=== PATIENT | male | born 1940 | race African-American/Black ===

== ENCOUNTER 2016-11-25 21:18 | Inpatient (IN) | payer MEDICARE, MEDICAID ==
[~2016-11-25] VITALS: Ht 170.2 cm; Wt 100.2 kg
[~2016-11-25 21:18] MED LIST: ACETAMINOPHEN325 M1 GT; ACETAMINOPHEN650 M2 GT; ALBUTEROL2.5 MG/3 M HHN; CALCIUM 500 +1 EAC7 GT; CARDURA1 MG GT; CATAPRES0.1 MG GT; CEFTRIAXON1 GM/50 ML IV; COLACE100 MG/10 GT; COUMADIN4 MG GT; DEPAKENE250 MG GT; DSS100 MG GT; DUCOLAX RECTAL; FLEET ENEMA133 ML RECTAL; FLOMAX0.4 MG GT; LASIX20 M1 GT; LOVENOX10 M2 SUBQ; Lidocaine 1% MPF 10mg/ml 5ml ONE; MOM30 ML GT; MULTIVITAMINS1 EA13 GT; NEXIUM40 M2 GT; NORVASC5 MG GT; OMEPRAZOLE20 M3 GT; POTASSIUM CHLO20 ME1 GT; TRAMADOL HCL50 MG ORAL; VANCOMYCIN1 GM/2502 IVPB; VITAMIN C500 MG/11 GT; Vancomycin 1gm inj IVPB ONE; ZOFRAN4 M3 ORAL; Zosyn 3.375gm inj ONE; [UNRECOGNIZED DRUG - OTHER]; [UNRECOGNIZED DRUG - OTHER] GT
[2016-11-25] MEDS ORDERED: Piperacillin/Tazobactam 3.375 GM in NS 110 ML IVPB ONE (21:45)
[2016-11-25 21:51] LABS: BASOPHILS % (AUTO) 0.5 % (0.0-2.0); LYMPHOCYTES % (AUTO) 11.6 % (20.0-45.0); MEAN CORPUSCULAR HGB CONC 31.4 G/DL (32.0-36.0); MEAN CORPUSCULAR VOLUME 99 FL (80-99); NEUTROPHILS % (AUTO) 82.8 % (45.0-75.0); PLATELET COUNT 218 K/UL (150-450); RED BLOOD COUNT 5.46 M/UL (4.70-6.10); RED CELL DISTRIBUTION WIDTH 14.4 % (11.6-14.8)
[2016-11-25 21:58] VITALS: BP 107/82
[2016-11-25 21:59] LABS: ABG PCO2 39.7 mmHg (35.0-45.0)
[2016-11-25 22:00] LABS: ABG ALLEN TEST POSITIVE; ABG BASE EXCESS 4.3
[2016-11-25 22:09] LABS: ALANINE AMINOTRANSFERASE 482 U/L (3-41); ALBUMIN/GLOBULIN RATIO 0.5 (1.0-2.7); ANION GAP 17 (5-15); ASPARTATE AMINO TRANSFERASE 577 U/L (5-40); CALCIUM 9.2 mg/dL (8.6-10.2); CARBON DIOXIDE 28 mEQ/L (20-30); CHLORIDE 103 mEQ/L (98-107); CREATININE 1.4 mg/dL (0.7-1.2); HEMOLYSIS 6; POTASSIUM 5.3 mEQ/L (3.4-4.9); SODIUM 148 mEQ/L (135-145); TOTAL PROTEIN 8.2 g/dL (6.6-8.7)
[2016-11-25 22:26] LABS: BILIRUBIN,DIRECT 2.6 mg/dL (0.1-0.3)
--- NOTE | 2016-11-25 22:40 | Emergency Room Report ---
History of Present Illness General Chief Complaint: Abnormal Labs Source: Medical Record, EMS, PMD Present Illness HPI 76 YOM sent by PMD from SNF for hyperglycemia, concern for sepsis. Per EMS, patient's baseline is alert and oriented x0. No acute worsening noted by SNF staff. Vitals otherwise stable in the field. No other info from patient at this time. There are no family members present to provide additional info. Allergies: Coded Allergies: No Known Allergies (Verified , 12/27/08) Patient History Past Medical History: see triage record, old chart reviewed, DM Past Surgical History: unable to obtain Pertinent Family History: unable to obtain Social History: Denies: alcohol use, drug use, smoking Immunizations: UTD Reviewed Nursing Documentation: PSxH: Agreed Nursing Documentation-PMH Hx Cardiac Problems: Yes - A FIB Hx Hypertension: Yes Hx Cancer: No Hx Gastrointestinal Problems: Yes - PEG Hx Neurological Problems: Yes - aphasia, dementia Hx Cerebrovascular Accident: Yes Hx Dementia: Yes Hx Seizures: Yes Hx Aphasia: Yes Hx Dysphasia: Yes Hx Weakness: Yes Review of Systems All Other Systems: limited - unable to obtain Physical Exam Vital Signs Date Time Temp Pulse Resp B/P Pulse Ox O2 Delivery O2 Flow Rate FiO2 11/25/16 21:20 111 26 107/82 92 Nasal Cannula 2.0 11/25/16 22:34 101.8 Sp02 EP Interpretation: reviewed, abnormal, other - tachypnea General Appearance: normal inspection, well appearing, no apparent distress, GCS 15, non-toxic Head: normocephalic, atraumatic Eyes: bilateral eye EOMI, bilateral eye PERRL ENT: normal ENT inspection, normal pharynx, no angioedema Neck: normal inspection, full range of motion, supple, no bony tend Respiratory: normal inspection, lungs clear, normal breath sounds, no rhonchi, no respiratory distress, no retraction, no accessory muscle use, no wheezing, speaking full sentences Cardiovascular #1: regular rate, rhythm, no edema Gastrointestinal: normal inspection, normal bowel sounds, non tender, soft, no guarding, no hernia, other - Gtube in place. Soft, NT/ND Genitourinary: no CVA tenderness Musculoskeletal: normal inspection, back normal, Jojo's Sign negative Neurologic: normal inspection, responsive, speech normal Psychiatric: normal inspection Skin: no rash Lymphatic: normal inspection Procedures Critical Care Time Critical Care Time CC time 35 minutes Care for 76 YOM with hyperglycemia, fever, altered? VS notable for fever, tachypnea. Atraumatic Hyperglycemia. DDx includes sepsis, DKA, hyperglycemia Care included sepsis order set for labs, 30cc/kg fluid resuscitation, initiation of IV antibiotics, tylenol PRN fever, Insulin gtt possibly, ABG Care may include administration of vasopressors started to support failing circulatory system, includes frequent re-exam, interpretation of lab studies and consultation with hospitalist/supervisor fruit grading. 35 minutes of critical care time was spent with this patient not including time spent performing separately reportable procedures. Central Line Central Line : Consent: Emergent Central Line Lumen: triple Maximal Sterile Barrier Tech: yes cap, yes mask, yes sterile gown, yes sterile gloves, yes large sterile sheet, yes hand hygiene, yes chlorhexidine prep No Max Barrier Tech Because: emergency insertion Central Line Postion: femoral (R) Anesthesia: Lidocaine Complications: none Central Line Post Position: sutured, good blood return Attempts: One Patient Tolerated: Well Complications: None Medical Decision Making Medicare Attestation I Jonnathan Obrien MD hereby attest that the medical record entry for date of service, 08/20/16 accurately reflects signatures/notations that I made in my capacity as MD when I treated/diagnosed the above listed Medicare beneficiary. I attest that this information is true, accurate and complete to the best of my knowledge. I understand that any falsification, omission, or concealment of material fact may subject me to administrative, civil, or criminal liability. This patient warrants hospital admission for extreme of age and has a condition that cannot be treated as outpatient. Diagnostic Impression: Primary Impression: Sepsis Qualified Codes: A41.9 - Sepsis, unspecified organism Additional Impressions: Hyperglycemia FABIOLA (acute kidney injury) Choledocholithiasis Aspiration into lower respiratory tract Qualified Codes: T17.800A - Unspecified foreign body in other parts of respiratory tract causing asphyxiation, initial encounter ER Course Febrile. Normotensive. O2 sat stable. Airway patent Labs: Leuks. H&H stable. AG 17. Bicarb normal. Elevated creatinine. Glucose 544. Elevated direct/total bili, LFTs. Serum ketones negative ABG: mild alkalosis, likely from tachynea CXR: widened mediastinum seen on previous CXR CTAP: choledocholithiasis, cholelithiais, pancreatitis vs duodenitis. ? aspiration. Gtube in place A: - Hyperglycemia: Not in DKA. Controlled with insulin, IVF - Sepsis. Was given empiric Abx and IVF, and Tylenol. Unclear source. Possibly aspiration Endorsed To Dr Tran at 1214am for tele admission Rhythm Strip Diag. Results EP Interpretation: yes Rate: 85 Rhythm: NSR, no PVC's, no ectopy Chest X-Ray Diagnostic Results EP Interpretation: Yes Findings: no consolidation, no acute cardiopulmonary disease, other - Cardiomegaly, stable enlarged mediastinum Number of Views: 1 Last Vital Signs Date Time Temp Pulse Resp B/P Pulse Ox O2 Delivery O2 Flow Rate FiO2 11/25/16 22:34 101.8 11/25/16 21:58 112 33 107/82 99 Nasal Cannula 2.0 Status: improved Disposition: ADMITTED INPATIENT Condition: Critical Referrals: Aliza Faria MD (PCP) JONNATHAN OBRIEN M.D. Nov 25, 2016 22:40
[2016-11-25] MEDS: Vancomycin 1.5 GM in D5W 325 ML IVPB STA ×2 (22:41→22:46)
[2016-11-25 23:03] VITALS: BP 117/60
[2016-11-25] MEDS ORDERED: Miralax 17gm pkt ORAL PRN (23:15)
[2016-11-25] MEDS ORDERED: traMADol 50mg tab ORAL PRN (23:15)
[2016-11-25] MEDS ORDERED: Morphine Sulfate 4mg/ml Inj IVP PRN (23:15)
[2016-11-25] MEDS ORDERED: DuoNeb 0.5-3(2.5)mg/3ml neb HHN PRN (23:15)
[2016-11-25] MEDS ORDERED: Insulin Rate Change 1 Each MISC PRN (23:15)
[2016-11-25] MEDS ORDERED: Nitroglycerin Subl 0.4mg tab (Bottle Of 25) SL PRN (23:15)
[2016-11-25] MEDS ORDERED: LORazepam Inj 2mg/ml 1ml IV PRN (23:15)
[2016-11-25 23:45] VITALS: BP 99/68
[2016-11-25 23:47] LABS: REFLEX LACTIC ACID YES OR NO YES
[2016-11-25 23:58] LABS: KETONES,URINE NEGATIVE (NEGATIVE); LEUKOCYTE ESTERASE ,URINE 1+ (NEGATIVE); NITRITE,URINE NEGATIVE (NEGATIVE); PH,URINE 5 (4.5-8.0); PROTEIN,URINE 3+ (NEGATIVE); UROBILINOGEN,URINE 8 MG/DL (0.0-1.0)
[2016-11-26] VITALS (18 sets, daily range): BP systolic 91–145; BP diastolic 50–99
[2016-11-26] MEDS ORDERED: ATORVASTATIN CA20 MG GT (00:45)
[2016-11-26] MEDS ORDERED: PANTOPRAZOLE SO40 MG ORAL (00:45)
[2016-11-26] MEDS ORDERED: WARFARIN SODIUM3 MG ORAL (00:45)
[2016-11-26 01:52] LABS: APPEARANCE,URINE SLIGHTLY CLOUDY
[2016-11-26 01:54] LABS: AMORPHOUS SEDIMENT,UR MANY /LPF; BACTERIA,URINE FEW /HPF; SQUAMOUS EPITHELIAL CELL,UR FEW /LPF (NONE/OCC); TRANSITIONAL EPI CELLS,URINE FEW /LPF
[2016-11-26] MEDS ORDERED: TAMSULOSIN HCL0.4 MG ORAL (03:11)
[2016-11-26] MEDS ORDERED: Zosyn 3.375gm inj ONE (03:31)
[2016-11-26] MEDS: Piperacillin/Tazobactam 3.375 GM in NS 110 ML IVPB SCH ×2 (06:15→14:54)
[2016-11-26] MEDS: NovoLOG Insulin Flexpen SUBQ SCH ×4 (06:38→21:12)
[2016-11-26 08:13] LABS: MEAN CORPUSCULAR HEMOGLOBIN 30.5 PG (27.0-31.0); MEAN CORPUSCULAR HGB CONC 30.4 G/DL (32.0-36.0); MEAN CORPUSCULAR VOLUME 100 FL (80-99); MEAN PLATELET VOLUME 9.5 FL (6.5-10.1); PLATELET COUNT 243 K/UL (150-450); RED BLOOD COUNT 5.04 M/UL (4.70-6.10); RED CELL DISTRIBUTION WIDTH 14.6 % (11.6-14.8); WHITE BLOOD COUNT 12.4 K/UL (4.8-10.8)
[2016-11-26 08:22] LABS: BILIRUBIN,DIRECT 2.2 mg/dL (0.1-0.3); PHOSPHORUS 3.8 mg/dL (2.5-4.8)
[2016-11-26 08:23] LABS: ANION GAP 17 (5-15); CALCIUM 8.3 mg/dL (8.6-10.2); CARBON DIOXIDE 27 mEQ/L (20-30); CHLORIDE 107 mEQ/L (98-107); CREATININE 1.5 mg/dL (0.7-1.2); HEMOLYSIS 4; POTASSIUM 4.4 mEQ/L (3.4-4.9); SODIUM 151 mEQ/L (135-145)
[2016-11-26 08:33] LABS: PROTHROMBIN TIME 89.7 SEC (9.30-11.50)
[2016-11-26 08:46] LABS: INR 8.2 (0.9-1.1)
[2016-11-26] MEDS ORDERED: Heparin 5000 units/ml inj SUBQ SCH (09:00)
--- NOTE | 2016-11-26 09:25 | Diagnostic Imaging Report ---
Indication: Abdominal pain and vomiting Technique: Spiral acquisitions obtained through the abdomen and pelvis. No oral contrast utilized, per emergency room physician request No IV contrast utilized, per referring physician request.. Multiplanar reconstructions were generated. Total dose length product : 43 mGycm. CTDIvol(s) 18 mGy Comparison: 02/25/2015 Findings: Exam is limited by lack of oral and IV contrast Interim development of marked thickening of the wall of the duodenum. There is infiltration of the periduodenal and peripancreatic fat, the latter particularly in the region of the pancreatic head, and fluid and phlegmon are seen traveling down the bilateral paracolic gutters. The gallbladder is nondistended, but there are gallstones. The common bile duct is dilated, measuring 13 mm in diameter. Distention extends to the level of the ampulla. No definite common duct stone is demonstrated. There is a gastrostomy tube in good position. The appendix is normal. There is colonic diverticulosis distally. No evidence of diverticulitis. No small bowel distention. No free intraperitoneal air. The distal esophagus is distended with fluid, and there is evidence of patulousness of the distal esophageal sphincter with free communication between the stomach and esophagus. There is broad-based diastasis of the rectus abdominis tendon as well as a small focal fat-containing umbilical hernia. These are evident previously. Lack of IV contrast limits assessment of solid organs. The liver is grossly unremarkable. The spleen contains a calcification in the upper pole. The adrenals and kidneys are grossly unremarkable. No retroperitoneal or mesenteric mass or adenopathy. No pelvic mass or adenopathy. There is a right femoral central venous catheter in place, tip at the level the external iliac vein. Edema of the bilateral hip and flank soft tissues is again demonstrated. There is fairly extensive degenerative spondylosis. There is extensive heterotopic ossification lateral to the right inferior pubic ramus. Previously demonstrated Tan catheter is no longer evident The heart is borderline enlarged. Linear and confluent opacities are seen in the lower lobes bilaterally. These appear accompanied by slight bronchiectasis and bronchial wall thickening. There is also posterior dependent atelectasis. This is increased from the previous study Impression: Marked wall thickening of the duodenum. Infiltration of the peripancreatic. Duodenal fat, fluid and phlegmon extending along the mesenteric root and bilateral paracolic gutters. This may represent primary pancreatitis with reactive changes of the adjacent duodenal wall, versus primary duodenal pathology. Correlate with laboratory findings Cholelithiasis. Dilated common bile duct. Etiology of this is uncertain raises concern for downstream obstruction by an occult stone. This also raises possibility that the above findings could be due to gallstone pancreatitis. MRCP be useful for further evaluation Patulous distal esophageal sphincter, with apparent free communication of gastric and esophageal contents, dilatation of the distal esophagus Gastrostomy tube in place, new since prior exam Bilateral lower lobe basilar pulmonary parenchymal disease. Suspect findings represent a combination of acute infiltrates and chronic progressive fibrotic changes. Diverticulosis. 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, right pelvic soft tissue heterotopic ossification This agrees with the preliminary interpretation provided overnight by [facility] teleradiology service. The CT scanner at [facility] is accredited by the [employer] and the scans are performed using protocols designed to limit r -- adiation exposure to as low as reasonably achievable to attain images of sufficient resolution adequate for diagnostic evaluation.
[2016-11-26] MEDS: Valproic Acid 250mg/5ml Liquid GT SCH ×3 (09:52→18:00)
[2016-11-26 10:32] LABS: BAND NEUTROPHILS % (MANUAL) 18 % (0-8); BASOPHILS % (MANUAL) 0 % (0-2); EOSINOPHILS % (MANUAL) 0 % (0-3); LYMPHOCYTES % (MANUAL) 8 % (20-45); NEUTROPHILS % (MANUAL) 72 % (45-75); PLATELET ESTIMATE ADEQUATE; PLATELET MORPHOLOGY NORMAL; TOTAL CELLS COUNTED 100
[2016-11-26 10:35] LABS: MACROCYTES 1+
[2016-11-26 10:38] LABS: PATH BLOOD SMEAR/OMC SENT TO PATHOLOGIST
--- NOTE | 2016-11-26 10:42 | Consultation ---
History of Present Illness General Date patient seen: Nov 26, 2016 Chief Complaint: Abnormal Labs Reason for Consultation: cholelithiasis, possible choledocholithiasis Present Illness HPI 76 M with multiple medical comorbidities and chronic medical history currently in skilled facility who was transferred to [facility] for sepsis work up. Please refer to EMR and H&P for details. Patient with fever, abnormal labs, change in status. upon work up noted to have abnormal CT scan which demonstrated gallstones, thickening duodenum, dilated CBD. T bili elevated, LFT's abnormal. Surgery called for evaluation of cholelithiasis possible choledocholithiasis. When seen at bedside patient resting, awake but not responsive given medical condition, g tube in place, abdomen distended. Labs and CT reviewed. Allergies: Coded Allergies: No Known Allergies (Verified , 12/27/08) Medication History Scheduled Amlodipine Besylate (Norvasc), 5 MG GT BID, (Reported) Atorvastatin Calcium* (Atorvastatin Calcium*), 20 MG GT BEDTIME, (Reported) Calcium Carbonate/Vitamin D3 (Calcium 500 + Vit D3 400 Tab), 2 TAB GT DAILY, ( Reported) Docusate Sodium (Docusate Sodium), 250 MG GT DAILY, (Reported) Doxazosin Mesylate* (Cardura*), 1 MG GT QHS, (Reported) Esomeprazole Magnesium (Nexium), 40 MG GT DAILY, (Reported) Furosemide* (Lasix*), 20 MG GT DAILY, (Reported) Multivitamin with Minerals (Multivitamins with Minerals), 1 TAB GT DAILY, ( Reported) Pantoprazole* (Pantoprazole*), 40 MG ORAL DAILY, (Reported) Potassium Chloride* (K-Dur*), 20 MEQ GT DAILY, (Reported) Tamsulosin Hcl (Tamsulosin Hcl*), 0.4 MG ORAL BEDTIME, (Reported) Valproic Acid (Depakene), 500 MG GT TID, (Reported) Vit C/Ascorbate Ca/Ascorb Sod (Vitamin C 500 Mg/15 Ml Liquid), 500 MG GT DAILY, (Reported) Warfarin Sod* (Warfarin Sod*), 3 MG ORAL DAILY, (Reported) Scheduled PRN Acetaminophen* (Acetaminophen*), 650 MG GT Q4H PRN for Mild Pain/Temp > 100.5, ( Reported) Albuterol Sulfate* (Albuterol Sulfate Hhn*), 2.5 MG HHN Q4HR PRN, (Reported) Clonidine Hcl* (Catapres*), 0.1 MG GT Q8HR PRN, (Reported) Magnesium Hydroxide (Milk of Magnesia), 30 ML GT DAILY PRN for Constipation, ( Reported) Na Phos,M-B/Na Phos,Di-Ba* (Fleet Enema*), 133 ML RECTAL DAILY PRN for Constipation, (Reported) Ondansetron* (Zofran*), 4 MG ORAL Q6H PRN for Nausea & Vomiting, (Reported) Tramadol Hcl* (Ultram*), 50 MG ORAL BID PRN for For Pain, (Reported) Patient History Healthcare decision maker Resuscitation status Full Code Advanced Directive on File Past Medical/Surgical History Past Medical/Surgical History: (1) Bilateral lower extremity edema (2) Venous stasis ulcers (3) Osteomyelitis of left foot (4) Fever (5) Diarrhea (6) Gastrojejunostomy tube dislodgement (7) Cellulitis (8) Anemia (9) Cellulitis of left abdominal wall (10) Venous stasis dermatitis (11) Osteomyelitis (12) Cellulitis of abdominal wall (13) Encounter for feeding tube placement (14) Cellulitis of abdominal wall (15) Sepsis (16) Cellulitis of abdominal wall (17) Coagulopathy (18) Pressure ulcer (19) Coagulopathy (20) Seizure disorder (21) Feeding by G-tube (22) DKA, type 1 (23) Aspiration into lower respiratory tract (24) Hyperglycemia (25) FABIOLA (acute kidney injury) (26) Choledocholithiasis Review of Systems ROS Narrative cannot obtain given prior medical history and condition. Physical Exam General Appearance: no apparent distress HEENT: normocephalic, atraumatic Neck: supple Respiratory/Chest: no respiratory distress, no accessory muscle use Cardiovascular/Chest: normal rate Abdomen: soft, abnormal bowel sounds, distended, hernia - reducible umbilical hernia, feeding tube Last 24 Hour Vital Signs Date Time Temp Pulse Resp B/P Pulse Ox O2 Delivery O2 Flow Rate FiO2 11/26/16 09:58 117 116/74 11/26/16 08:01 96.3 117 20 116/74 98 Nasal Cannula 3.0 11/26/16 04:07 97.9 106 21 118/78 94 Nasal Cannula 4.0 11/26/16 04:00 101 11/26/16 02:25 98.2 97 21 145/63 99 Nasal Cannula 4.0 11/26/16 01:45 101.8 98 23 115/76 99 Nasal Cannula 4.0 11/26/16 01:10 101.8 98 23 115/76 99 Nasal Cannula 4.0 11/26/16 00:45 101.8 98 23 117/80 96 Nasal Cannula 4.0 11/25/16 23:45 101.8 96 35 99/68 97 Nasal Cannula 4.0 11/25/16 23:03 101.8 94 36 117/60 95 Nasal Cannula 2.0 11/25/16 22:34 101.8 11/25/16 21:58 112 33 107/82 99 Nasal Cannula 2.0 11/25/16 21:20 111 26 107/82 92 Nasal Cannula 2.0 Intake and Output 11/25/16 11/26/16 19:00 07:00 Intake Total 2275 ml Output Total 450 ml Balance 1825 ml Intake IV Total 2275 ml Output Urine Total 450 ml Laboratory Tests Test 11/25/16 21:30 11/25/16 21:39 11/25/16 23:30 11/26/16 06:00 Arterial Blood pH 7.469 (7.350-7.450) Arterial Blood Partial Pressure CO2 39.7 mmHg (35.0-45.0) Arterial Blood Partial Pressure O2 67.2 mmHg (75.0-100.0) L Arterial Blood HCO3 28.2 mmol/L (22.0-26.0) H Arterial Blood Oxygen Saturation 93.9 % (92.0-98.0) Arterial Blood Base Excess 4.3 Carlos Test Positive White Blood Count 12.0 K/UL (4.8-10.8) H 12.4 K/UL (4.8-10.8) H Red Blood Count 5.46 M/UL (4.70-6.10) 5.04 M/UL (4.70-6.10) Hemoglobin 17.0 G/DL (14.2-18.0) 15.4 G/DL (14.2-18.0) Hematocrit 53.9 % (42.0-52.0) H 50.6 % (42.0-52.0) Mean Corpuscular Volume 99 FL (80-99) 100 FL (80-99) H Mean Corpuscular Hemoglobin 31.0 PG (27.0-31.0) 30.5 PG (27.0-31.0) Mean Corpuscular Hemoglobin Concent 31.4 G/DL (32.0-36.0) L 30.4 G/DL (32.0-36.0) L Red Cell Distribution Width 14.4 % (11.6-14.8) 14.6 % (11.6-14.8) Platelet Count 218 K/UL (150-450) 243 K/UL (150-450) Mean Platelet Volume 9.0 FL (6.5-10.1) 9.5 FL (6.5-10.1) Neutrophils (%) (Auto) 82.8 % (45.0-75.0) H % (45.0-75.0) Lymphocytes (%) (Auto) 11.6 % (20.0-45.0) L % (20.0-45.0) Monocytes (%) (Auto) 5.0 % (1.0-10.0) % (1.0-10.0) Eosinophils (%) (Auto) 0.0 % (0.0-3.0) % (0.0-3.0) Basophils (%) (Auto) 0.5 % (0.0-2.0) % (0.0-2.0) Sodium Level 148 mEQ/L (135-145) H 151 mEQ/L (135-145) H Potassium Level 5.3 mEQ/L (3.4-4.9) H 4.4 mEQ/L (3.4-4.9) Chloride Level 103 mEQ/L (98-107) 107 mEQ/L (98-107) Carbon Dioxide Level 28 mEQ/L (20-30) 27 mEQ/L (20-30) Anion Gap 17 (5-15) H 17 (5-15) H Blood Urea Nitrogen 58 mg/dL (7-23) H 58 mg/dL (7-23) H Creatinine 1.4 mg/dL (0.7-1.2) H 1.5 mg/dL (0.7-1.2) H Estimat Glomerular Filtration Rate mL/min (>60) mL/min (>60) Glucose Level 544 mg/dL (74-106) *H 359 mg/dL (74-106) #H Lactic Acid Level 3.10 mmol/L (0.66-2.22) H 3.40 mmol/L (0.66-2.22) H Calcium Level 9.2 mg/dL (8.6-10.2) 8.3 mg/dL (8.6-10.2) L Magnesium Level 3.0 mg/dL (1.7-2.5) H Total Bilirubin 3.3 mg/dL (0.0-1.2) H 2.6 mg/dL (0.0-1.2) H Direct Bilirubin 2.6 mg/dL (0.1-0.3) H 2.2 mg/dL (0.1-0.3) H Aspartate Amino Transf (AST/SGOT) 577 U/L (5-40) H 423 U/L (5-40) H Alanine Aminotransferase (ALT/SGPT) 482 U/L (3-41) H 372 U/L (3-41) H Alkaline Phosphatase 478 U/L (40-129) H 383 U/L (40-129) H Total Protein 8.2 g/dL (6.6-8.7) 7.0 g/dL (6.6-8.7) Albumin 2.9 g/dL (3.5-5.2) L 2.4 g/dL (3.5-5.2) L Globulin 5.3 g/dL Albumin/Globulin Ratio 0.5 (1.0-2.7) L Acetone Level Negative (NEGATIVE) Urine Color Jeanette Urine Appearance Slightly cloudy Urine pH 5 (4.5-8.0) Urine Specific [place] 1.025 (1.005-1.035) Urine Protein 3+ (NEGATIVE) H Urine Glucose (UA) 4+ (NEGATIVE) H Urine Ketones Negative (NEGATIVE) Urine Occult Blood 4+ (NEGATIVE) H Urine Nitrite Negative (NEGATIVE) Urine Bilirubin 2+ (NEGATIVE) H Urine Ictotest Urine Urobilinogen 8 MG/DL (0.0-1.0) H Urine Leukocyte Esterase 1+ (NEGATIVE) H Urine RBC 5-10 /HPF (0 - 0) H Urine WBC 5-10 /HPF (0 - 0) H Urine Squamous Epithelial Cells Few /LPF (NONE/OCC) Urine Transitional Epithelial Cells Few /LPF (NONE) H Urine Amorphous Sediment Many /LPF (NONE) H Urine Bacteria Few /HPF (NONE) Urine Coarse Granular Casts 5-10 /LPF (NONE) H Neutrophils % (Manual) Pending Lymphocytes % (Manual) Pending Platelet Estimate Pending Platelet Morphology Pending Prothrombin Time 89.7 SEC (9.30-11.50) H Prothromb Time International Ratio 8.2 (0.9-1.1) *H Activated Partial Thromboplast Time 58 SEC (23-33) H Phosphorus Level 3.8 mg/dL (2.5-4.8) Height (Feet): 5 Height (Inches): 7.00 Weight (Pounds): 221 Medications Current Medications Medications (Trade) Dose Ordered Sig/Jamaal Route PRN Reason Start Time Stop Time Status Last Admin Dose Admin Acetaminophen (Tylenol) 650 mg Q4H PRN ORAL Fever 11/25/16 23:15 12/25/16 23:14 Albuterol/ Ipratropium (DuoNeb 0.5-3(2.5)mg/3ml) 3 ml Q4H PRN HHN Shortness of Breath 11/25/16 23:15 11/30/16 23:14 Amlodipine Besylate (Norvasc) 5 mg BID GT 11/26/16 09:00 12/26/16 08:59 11/26/16 09:58 Clonidine HCl (Catapres) 0.1 mg Q8H PRN GT sbp> 160 11/26/16 07:15 12/26/16 07:14 Dextrose (Dextrose 50%) STAT PRN IV Hypoglycemia 11/26/16 00:00 12/26/16 00:00 Doxazosin Mesylate (Cardura) 1 mg QHS GT 11/26/16 21:00 12/26/16 20:59 Heparin Sodium (Porcine) (Heparin 5000 units/ml) 5,000 units EVERY 12 HOURS SUBQ 11/26/16 09:00 12/26/16 08:59 11/26/16 09:59 Insulin Aspart (NovoLOG) BEFORE MEALS AND HS SUBQ 11/26/16 06:30 12/26/16 06:29 11/26/16 06:38 Lorazepam (Ativan 2mg/ml 1ml) 2 mg Q2H PRN IV agitation 11/25/16 23:15 12/02/16 23:14 Morphine Sulfate (Morphine Sulfate) 4 mg Q4H PRN IVP Severe Pain (Pain Scale 7-10) 11/25/16 23:15 12/02/16 23:14 Nitroglycerin (Ntg) 0.4 mg Q5M PRN SL Prn Chest Pain 11/25/16 23:15 12/25/16 23:14 Ondansetron HCl (Zofran) 4 mg Q6H PRN IVP Nausea & Vomiting 11/25/16 23:15 12/25/16 23:14 Pantoprazole (Protonix) 40 mg EVERY 12 HOURS IV 11/26/16 11:00 12/26/16 10:59 Piperacillin Sod/ Tazobactam Sod 3.375 gm/Sodium Chloride 110 ml @ 27.5 mls/hr EVERY 8 HOURS IVPB 11/26/16 06:00 12/03/16 05:59 11/26/16 06:15 Polyethylene Glycol (Miralax) 17 gm DAILYPRN PRN ORAL Constipation 11/25/16 23:15 12/25/16 23:14 Sodium Chloride (Sodium Chloride 1000ml bag) 1,000 ml @ 150 mls/hr Q6H40M IV 11/26/16 00:00 12/26/16 00:00 11/26/16 06:15 Tamsulosin HCl (Flomax) 0.4 mg BEDTIME ORAL 11/26/16 21:00 12/26/16 20:59 Tramadol HCl 50 mg 50 mg BID PRN ORAL For Pain 11/25/16 23:15 12/02/16 23:14 Valproic Acid (Depakene) 500 mg THREE TIMES A DAY GT 11/26/16 09:00 12/26/16 08:59 11/26/16 09:52 Vancomycin HCl 1 ea 1 ea DAILY PRN MISC Per rx protocol 11/25/16 23:15 12/25/16 23:14 Vancomycin HCl/ Sodium Chloride (Vancomycin/ Sodium Chloride) 325 ml @ 162.5 mls/ hr Q24H IVPB 11/26/16 22:00 12/01/16 21:59 Assessment/Plan Problem List: (1) Choledocholithiasis ICD Codes: K80.50 - Calculus of bile duct without cholangitis or cholecystitis without obstruction SNOMED: [id number] Assessment/Plan 76 M with multiple medical problems as above noted to have abnormal LFT's, cholelithiasis, and possible choledocholithiasis. Labs as above. Exam unreliable given prior medical condition. CT findings with abnormal thickening of duodenum, pancreatic inflammation, and drainage. This is concerning for a significant pancreatitis. Lipase today NPO IV fluids IV Abx Trend labs Appreciate GI input. Will continue to follow with you. No acute surgical intervention necessary at this time. Ozzie Flynn Nov 26, 2016 10:42
[2016-11-26] MEDS ORDERED: Pantoprazole Inj IV SCH (11:00)
--- NOTE | 2016-11-26 11:53 | Diagnostic Imaging Report ---
Indication: SOB Technique: One view of the chest Comparison: none Findings: There is some image degradation due to motion artifact Atelectatic changes are seen in the left perihilar region of the left lung base. The left hemidiaphragm is obscured, small amount of pleural fluid not excludable. Right lung and pleural space are probably clear. The heart is mildly enlarged. Aorta is tortuous ectatic and calcified Impression: Basilar and perihilar atelectasis and possible small left pleural effusion Cardiomegaly
--- NOTE | 2016-11-26 12:07 | Consultation ---
History of Present Illness General Date patient seen: Nov 26, 2016 Chief Complaint: Abnormal Labs Reason for Consultation: cholelithiasis, possible choledocholithiasis Present Illness HPI 76 year old male with hx of CVA, Dementia, PEG sent from SNF for hyperglycemia and fever. He had a CT scan in ER showing possible pancreatitis and choledocholithiasis. His INR was 8. He also had hyperglycemia. During my evaluation he started having Coffee ground voming during suctioning. Allergies: Coded Allergies: No Known Allergies (Verified , 12/27/08) Medication History Scheduled Amlodipine Besylate (Norvasc), 5 MG GT BID, (Reported) Atorvastatin Calcium* (Atorvastatin Calcium*), 20 MG GT BEDTIME, (Reported) Calcium Carbonate/Vitamin D3 (Calcium 500 + Vit D3 400 Tab), 2 TAB GT DAILY, ( Reported) Docusate Sodium (Docusate Sodium), 250 MG GT DAILY, (Reported) Doxazosin Mesylate* (Cardura*), 1 MG GT QHS, (Reported) Esomeprazole Magnesium (Nexium), 40 MG GT DAILY, (Reported) Furosemide* (Lasix*), 20 MG GT DAILY, (Reported) Multivitamin with Minerals (Multivitamins with Minerals), 1 TAB GT DAILY, ( Reported) Pantoprazole* (Pantoprazole*), 40 MG ORAL DAILY, (Reported) Potassium Chloride* (K-Dur*), 20 MEQ GT DAILY, (Reported) Tamsulosin Hcl (Tamsulosin Hcl*), 0.4 MG ORAL BEDTIME, (Reported) Valproic Acid (Depakene), 500 MG GT TID, (Reported) Vit C/Ascorbate Ca/Ascorb Sod (Vitamin C 500 Mg/15 Ml Liquid), 500 MG GT DAILY, (Reported) Warfarin Sod* (Warfarin Sod*), 3 MG ORAL DAILY, (Reported) Scheduled PRN Acetaminophen* (Acetaminophen*), 650 MG GT Q4H PRN for Mild Pain/Temp > 100.5, ( Reported) Albuterol Sulfate* (Albuterol Sulfate Hhn*), 2.5 MG HHN Q4HR PRN, (Reported) Clonidine Hcl* (Catapres*), 0.1 MG GT Q8HR PRN, (Reported) Magnesium Hydroxide (Milk of Magnesia), 30 ML GT DAILY PRN for Constipation, ( Reported) Na Phos,M-B/Na Phos,Di-Ba* (Fleet Enema*), 133 ML RECTAL DAILY PRN for Constipation, (Reported) Ondansetron* (Zofran*), 4 MG ORAL Q6H PRN for Nausea & Vomiting, (Reported) Tramadol Hcl* (Ultram*), 50 MG ORAL BID PRN for For Pain, (Reported) Patient History Healthcare decision maker Resuscitation status Full Code Advanced Directive on File Past Medical/Surgical History Past Medical/Surgical History: (1) Dementia (2) Limited mobility in bed (3) Feeding by G-tube (4) Seizure disorder Review of Systems All Other Systems: negative except mentioned in HPI Physical Exam General Appearance: WD/WN Lines, tubes and drains: peripheral, gtube HEENT: normocephalic, atraumatic Neck: non-tender, normal alignment Respiratory/Chest: rhonchi - left, rhonchi - right Cardiovascular/Chest: normal peripheral pulses, normal rate Abdomen: distended Genitourinary/Rectal: normal genital exam Extremities: normal range of motion, non-tender Last 24 Hour Vital Signs Date Time Temp Pulse Resp B/P Pulse Ox O2 Delivery O2 Flow Rate FiO2 11/26/16 11:35 97.1 116 22 143/61 93 Nasal Cannula 3.0 11/26/16 09:58 117 116/74 11/26/16 08:01 96.3 117 20 116/74 98 Nasal Cannula 3.0 11/26/16 04:07 97.9 106 21 118/78 94 Nasal Cannula 4.0 11/26/16 04:00 101 11/26/16 02:25 98.2 97 21 145/63 99 Nasal Cannula 4.0 11/26/16 01:45 101.8 98 23 115/76 99 Nasal Cannula 4.0 11/26/16 01:10 101.8 98 23 115/76 99 Nasal Cannula 4.0 11/26/16 00:45 101.8 98 23 117/80 96 Nasal Cannula 4.0 11/25/16 23:45 101.8 96 35 99/68 97 Nasal Cannula 4.0 11/25/16 23:03 101.8 94 36 117/60 95 Nasal Cannula 2.0 11/25/16 22:34 101.8 11/25/16 21:58 112 33 107/82 99 Nasal Cannula 2.0 11/25/16 21:20 111 26 107/82 92 Nasal Cannula 2.0 Intake and Output 11/25/16 11/26/16 19:00 07:00 Intake Total 2275 ml Output Total 450 ml Balance 1825 ml Intake IV Total 2275 ml Output Urine Total 450 ml Laboratory Tests Test 11/25/16 21:30 11/25/16 21:39 11/25/16 23:30 11/26/16 06:00 Arterial Blood pH 7.469 (7.350-7.450) Arterial Blood Partial Pressure CO2 39.7 mmHg (35.0-45.0) Arterial Blood Partial Pressure O2 67.2 mmHg (75.0-100.0) L Arterial Blood HCO3 28.2 mmol/L (22.0-26.0) H Arterial Blood Oxygen Saturation 93.9 % (92.0-98.0) Arterial Blood Base Excess 4.3 Carlos Test Positive White Blood Count 12.0 K/UL (4.8-10.8) H 12.4 K/UL (4.8-10.8) H Red Blood Count 5.46 M/UL (4.70-6.10) 5.04 M/UL (4.70-6.10) Hemoglobin 17.0 G/DL (14.2-18.0) 15.4 G/DL (14.2-18.0) Hematocrit 53.9 % (42.0-52.0) H 50.6 % (42.0-52.0) Mean Corpuscular Volume 99 FL (80-99) 100 FL (80-99) H Mean Corpuscular Hemoglobin 31.0 PG (27.0-31.0) 30.5 PG (27.0-31.0) Mean Corpuscular Hemoglobin Concent 31.4 G/DL (32.0-36.0) L 30.4 G/DL (32.0-36.0) L Red Cell Distribution Width 14.4 % (11.6-14.8) 14.6 % (11.6-14.8) Platelet Count 218 K/UL (150-450) 243 K/UL (150-450) Mean Platelet Volume 9.0 FL (6.5-10.1) 9.5 FL (6.5-10.1) Neutrophils (%) (Auto) 82.8 % (45.0-75.0) H % (45.0-75.0) Lymphocytes (%) (Auto) 11.6 % (20.0-45.0) L % (20.0-45.0) Monocytes (%) (Auto) 5.0 % (1.0-10.0) % (1.0-10.0) Eosinophils (%) (Auto) 0.0 % (0.0-3.0) % (0.0-3.0) Basophils (%) (Auto) 0.5 % (0.0-2.0) % (0.0-2.0) Sodium Level 148 mEQ/L (135-145) H 151 mEQ/L (135-145) H Potassium Level 5.3 mEQ/L (3.4-4.9) H 4.4 mEQ/L (3.4-4.9) Chloride Level 103 mEQ/L (98-107) 107 mEQ/L (98-107) Carbon Dioxide Level 28 mEQ/L (20-30) 27 mEQ/L (20-30) Anion Gap 17 (5-15) H 17 (5-15) H Blood Urea Nitrogen 58 mg/dL (7-23) H 58 mg/dL (7-23) H Creatinine 1.4 mg/dL (0.7-1.2) H 1.5 mg/dL (0.7-1.2) H Estimat Glomerular Filtration Rate mL/min (>60) mL/min (>60) Glucose Level 544 mg/dL (74-106) *H 359 mg/dL (74-106) #H Lactic Acid Level 3.10 mmol/L (0.66-2.22) H 3.40 mmol/L (0.66-2.22) H Calcium Level 9.2 mg/dL (8.6-10.2) 8.3 mg/dL (8.6-10.2) L Magnesium Level 3.0 mg/dL (1.7-2.5) H Total Bilirubin 3.3 mg/dL (0.0-1.2) H 2.6 mg/dL (0.0-1.2) H Direct Bilirubin 2.6 mg/dL (0.1-0.3) H 2.2 mg/dL (0.1-0.3) H Aspartate Amino Transf (AST/SGOT) 577 U/L (5-40) H 423 U/L (5-40) H Alanine Aminotransferase (ALT/SGPT) 482 U/L (3-41) H 372 U/L (3-41) H Alkaline Phosphatase 478 U/L (40-129) H 383 U/L (40-129) H Total Protein 8.2 g/dL (6.6-8.7) 7.0 g/dL (6.6-8.7) Albumin 2.9 g/dL (3.5-5.2) L 2.4 g/dL (3.5-5.2) L Globulin 5.3 g/dL Albumin/Globulin Ratio 0.5 (1.0-2.7) L Acetone Level Negative (NEGATIVE) Urine Color Jeanette Urine Appearance Slightly cloudy Urine pH 5 (4.5-8.0) Urine Specific Maddock 1.025 (1.005-1.035) Urine Protein 3+ (NEGATIVE) H Urine Glucose (UA) 4+ (NEGATIVE) H Urine Ketones Negative (NEGATIVE) Urine Occult Blood 4+ (NEGATIVE) H Urine Nitrite Negative (NEGATIVE) Urine Bilirubin 2+ (NEGATIVE) H Urine Ictotest Urine Urobilinogen 8 MG/DL (0.0-1.0) H Urine Leukocyte Esterase 1+ (NEGATIVE) H Urine RBC 5-10 /HPF (0 - 0) H Urine WBC 5-10 /HPF (0 - 0) H Urine Squamous Epithelial Cells Few /LPF (NONE/OCC) Urine Transitional Epithelial Cells Few /LPF (NONE) H Urine Amorphous Sediment Many /LPF (NONE) H Urine Bacteria Few /HPF (NONE) Urine Coarse Granular Casts 5-10 /LPF (NONE) H Differential Total Cells Counted 100 Neutrophils % (Manual) 72 % (45-75) Lymphocytes % (Manual) 8 % (20-45) L Monocytes % (Manual) 2 % (1-10) Eosinophils % (Manual) 0 % (0-3) Basophils % (Manual) 0 % (0-2) Band Neutrophils 18 % (0-8) H Platelet Estimate Adequate Platelet Morphology Normal Macrocytosis 1+ Prothrombin Time 89.7 SEC (9.30-11.50) H Prothromb Time International Ratio 8.2 (0.9-1.1) *H Activated Partial Thromboplast Time 58 SEC (23-33) H Phosphorus Level 3.8 mg/dL (2.5-4.8) Lipase 1253 U/L (< 60) H Height (Feet): 5 Height (Inches): 7.00 Weight (Pounds): 221 Medications Current Medications Medications (Trade) Dose Ordered Sig/Jamaal Route PRN Reason Start Time Stop Time Status Last Admin Dose Admin Acetaminophen (Tylenol) 650 mg Q4H PRN ORAL Fever 11/25/16 23:15 12/25/16 23:14 Albuterol/ Ipratropium (DuoNeb 0.5-3(2.5)mg/3ml) 3 ml Q4H PRN HHN Shortness of Breath 11/25/16 23:15 11/30/16 23:14 Amlodipine Besylate (Norvasc) 5 mg BID GT 11/26/16 09:00 12/26/16 08:59 11/26/16 09:58 Clonidine HCl (Catapres) 0.1 mg Q8H PRN GT sbp> 160 11/26/16 07:15 12/26/16 07:14 Dextrose (Dextrose 50%) STAT PRN IV Hypoglycemia 11/26/16 00:00 12/26/16 00:00 Doxazosin Mesylate (Cardura) 1 mg QHS GT 11/26/16 21:00 12/26/16 20:59 Insulin Aspart (NovoLOG) BEFORE MEALS AND HS SUBQ 11/26/16 06:30 12/26/16 06:29 11/26/16 06:38 Lorazepam (Ativan 2mg/ml 1ml) 2 mg Q2H PRN IV agitation 11/25/16 23:15 12/02/16 23:14 Morphine Sulfate (Morphine Sulfate) 4 mg Q4H PRN IVP Severe Pain (Pain Scale 7-10) 11/25/16 23:15 12/02/16 23:14 Nitroglycerin (Ntg) 0.4 mg Q5M PRN SL Prn Chest Pain 11/25/16 23:15 12/25/16 23:14 Ondansetron HCl (Zofran) 4 mg Q6H PRN IVP Nausea & Vomiting 3/12/17 23:15 12/25/16 23:14 Pantoprazole 40 mg 40 mg EVERY 12 HOURS IV 11/26/16 11:00 12/26/16 10:59 Phytonadione/ Dextrose (Vitamin K/D5W) 56 ml @ 112 mls/hr ONCE ONCE IVPB 11/26/16 12:30 11/26/16 12:59 Piperacillin Sod/ Tazobactam Sod 3.375 gm/Sodium Chloride 110 ml @ 27.5 mls/hr EVERY 8 HOURS IVPB 11/26/16 06:00 12/03/16 05:59 11/26/16 06:15 Polyethylene Glycol (Miralax) 17 gm DAILYPRN PRN ORAL Constipation 11/25/16 23:15 12/25/16 23:14 Sodium Chloride 1,000 ml @ 75 mls/hr [id number] IV 11/26/16 12:00 12/26/16 11:59 Tamsulosin HCl (Flomax) 0.4 mg BEDTIME ORAL 11/26/16 21:00 12/26/16 20:59 Tramadol HCl (Ultram) 50 mg BID PRN ORAL For Pain 11/25/16 23:15 12/02/16 23:14 Valproic Acid (Depakene) 500 mg THREE TIMES A DAY GT 11/26/16 09:00 12/26/16 08:59 11/26/16 09:52 Vancomycin HCl 1 ea 1 ea DAILY PRN MISC Per rx protocol 11/25/16 23:15 12/25/16 23:14 Vancomycin HCl/ Sodium Chloride (Vancomycin/ Sodium Chloride) 325 ml @ 162.5 mls/ hr Q24H IVPB 11/26/16 22:00 12/01/16 21:59 Assessment/Plan Problem List: (1) Coffee ground vomiting ICD Codes: K92.0 - Hematemesis SNOMED: 74482405 (2) Coagulopathy ICD Codes: D68.9 - Coagulopathy SNOMED: 50987398 (3) Sepsis ICD Codes: A41.9 - Sepsis, unspecified organism SNOMED: 75075749 Qualifiers: Qualified Codes: A41.9 - Sepsis, unspecified organism (4) Acute pancreatitis ICD Codes: K85.90 - Acute pancreatitis without necrosis or infection, unspecified SNOMED: 603661191 Qualifiers: Qualified Codes: K85.10 - Biliary acute pancreatitis without necrosis or infection (5) Limited mobility in bed SNOMED: 4832970 (6) Feeding by G-tube ICD Codes: Z93.1 - Feeding by G-tube SNOMED: 042555893 (7) Choledocholithiasis ICD Codes: K80.50 - Calculus of bile duct without cholangitis or cholecystitis without obstruction SNOMED: 974412505 (8) Dementia ICD Codes: F03.90 - Unspecified dementia without behavioral disturbance SNOMED: 21312789 Qualifiers: Qualified Codes: F01.50 - Vascular dementia without behavioral disturbance Assessment/Plan transfer to [facility] IVF NPO correct coagulopathy vitamin K + FFP IV antibiotics GI evaluation SONIA ALBERTS Nov 26, 2016 12:07
[2016-11-26] MEDS ORDERED: Phytonadione 10 MG in D5W 55 ML IVPB ONE (12:30)
--- NOTE | 2016-11-26 13:37 | GI Initial Consult Note ---
RuizRadha Ferreroi N.P. 11/26/16 1337: History of Present Illness General Date patient seen: Nov 26, 2016 Time patient seen: 11:00 Reason for Hospitalization: Abnormal Labs Referring physician: VIDYA HARDY Reason for Consultation: cholelithiasis, possible choledocholithiasis Present Illness HPI 76 YOM sent by PMD from SNF for hyperglycemia, concern for sepsis. Per EMS, patient's baseline is alert and oriented x0. No acute worsening noted by SNF staff. Vitals otherwise stable in the field. No other info from patient at this time. There are no family members present to provide additional info. GI CONSULT: HPI as noted above. Pt seen on floor, unable to obtain any history or ROS. Pt presents today with concern for downstream obstruction by occult stone, see APCT for full report. In addition, the patient presents with leukocytosis, elevated total bilirubin due to obstruction, and INR of 8. Pt had EGD/PEG 03/02/16. Endoscopy Procedure Note Indication for Procedure: dysphagia Procedures Performed: EGD, PEG FLOYD MARIANO- Mar 02, 2015 13:12 Service Date: 11/25/16 Procedure: CT Abdomen Pelvis WO Contrast Indication: Abdominal pain and vomiting Impression: Marked wall thickening of the duodenum. Infiltration of the peripancreatic. Duodenal fat, fluid and phlegmon extending along the mesenteric root and bilateral paracolic gutters. This may represent primary pancreatitis with reactive changes of the adjacent duodenal wall, versus primary duodenal pathology. Correlate with laboratory findings Cholelithiasis. Dilated common bile duct. Etiology of this is uncertain raises concern for downstream obstruction by an occult stone. This also raises possibility that the above findings could be due to gallstone pancreatitis. MRCP be useful for further evaluation Patulous distal esophageal sphincter, with apparent free communication of gastric and esophageal contents, dilatation of the distal esophagus Gastrostomy tube in place, new since prior exam Bilateral lower lobe basilar pulmonary parenchymal disease. Suspect findings represent a combination of acute infiltrates and chronic progressive fibrotic changes. Diverticulosis. 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, right pelvic soft tissue heterotopic ossification Home Meds Reported Medications Tamsulosin Hcl (TAMSULOSIN HCL*) 0.4 Mg Cap.er.24h, 0.4 MG ORAL BEDTIME, CAP 11/26/16 Warfarin Sod* (WARFARIN SOD*) 3 Mg Tablet, 3 MG ORAL DAILY, TAB 11/26/16 Pantoprazole* (PANTOPRAZOLE*) 40 Mg Tablet.dr, 40 MG ORAL DAILY, TAB 11/26/16 Atorvastatin Calcium* (ATORVASTATIN CALCIUM*) 20 Mg Tablet, 20 MG GT BEDTIME, TAB 11/26/16 Acetaminophen* (ACETAMINOPHEN*) 325 Mg Tablet, 650 MG GT Q4H Y for Mild Pain/ Temp > 100.5, TAB 03/04/15 Tramadol Hcl* (ULTRAM*) 50 Mg Tablet, 50 MG ORAL BID Y for For Pain, TAB 0 Refills 02/23/15 Vit C/Ascorbate Ca/Ascorb Sod (VITAMIN C 500 MG/15 ML LIQUID) 500 Mg/15 Ml Liquid, 500 MG GT DAILY, ML 02/23/15 Ondansetron* (ZOFRAN*) 4 Mg Tablet, 4 MG ORAL Q6H Y for Nausea & Vomiting, TAB 02/23/15 Esomeprazole Magnesium (NEXIUM) 40 Mg Suspdr.pkt, 40 MG GT DAILY, PKT 02/23/15 Multivitamin with Minerals (Multivitamins with Minerals) 1 Each Tablet, 1 TAB GT DAILY, TAB 02/23/15 Furosemide* (LASIX*) 20 Mg Tablet, 20 MG GT DAILY, TAB 02/23/15 Na Phos,M-B/Na Phos,Di-Ba* (FLEET ENEMA*) 133 Ml Enema, 133 ML RECTAL DAILY Y for Constipation, ML 0 Refills 02/23/15 Docusate Sodium (Docusate Sodium) 100 Mg/10 Ml Udc, 250 MG GT DAILY, EA 02/23/15 Doxazosin Mesylate* (CARDURA*) 1 Mg Tablet, 1 MG GT QHS, TAB 02/23/15 Calcium Carbonate/Vitamin D3 (Calcium 500 + Vit D3 400 Tab) 1 Each Tablet, 2 TAB GT DAILY, TAB 02/23/15 Albuterol Sulfate* (ALBUTEROL SULFATE HHN*) 2.5 Mg/3 Ml Vial.neb, 2.5 MG HHN Q4HR Y 03/30/13 Clonidine Hcl* (CATAPRES*) 0.1 Mg Tablet, 0.1 MG GT Q8HR Y 03/30/13 Magnesium Hydroxide (Milk of Magnesia) 30 Ml Susp, 30 ML GT DAILY Y for Constipation 03/30/13 Amlodipine Besylate (Norvasc) 5 Mg Tab, 5 MG GT BID 03/30/13 Valproic Acid (Depakene) 250 Mg Cap, 500 MG GT TID 03/30/13 Potassium Chloride* (K-DUR*) 20 Meq Tab.er.prt, 20 MEQ GT DAILY, #7 TAB 03/30/13 Med list reviewed/reconciled: Yes Allergies: Coded Allergies: No Known Allergies (Verified , 12/27/08) Patient History Limited by: medical condition History Provided By: Medical Record Review of Systems All Other Systems: limited Physical Exam Vital Signs Date Time Temp Pulse Resp B/P Pulse Ox O2 Delivery O2 Flow Rate FiO2 11/25/16 21:20 111 26 107/82 92 Nasal Cannula 2.0 11/25/16 22:34 101.8 Sp02 EP Interpretation: reviewed Labs Laboratory Tests Test 11/25/16 21:30 11/25/16 21:39 11/25/16 23:30 11/26/16 06:00 Arterial Blood pH 7.469 (7.350-7.450) Arterial Blood Partial Pressure CO2 39.7 mmHg (35.0-45.0) Arterial Blood Partial Pressure O2 67.2 mmHg (75.0-100.0) L Arterial Blood HCO3 28.2 mmol/L (22.0-26.0) H Arterial Blood Oxygen Saturation 93.9 % (92.0-98.0) Arterial Blood Base Excess 4.3 Carlos Test Positive White Blood Count 12.0 K/UL (4.8-10.8) H 12.4 K/UL (4.8-10.8) H Red Blood Count 5.46 M/UL (4.70-6.10) 5.04 M/UL (4.70-6.10) Hemoglobin 17.0 G/DL (14.2-18.0) 15.4 G/DL (14.2-18.0) Hematocrit 53.9 % (42.0-52.0) H 50.6 % (42.0-52.0) Mean Corpuscular Volume 99 FL (80-99) 100 FL (80-99) H Mean Corpuscular Hemoglobin 31.0 PG (27.0-31.0) 30.5 PG (27.0-31.0) Mean Corpuscular Hemoglobin Concent 31.4 G/DL (32.0-36.0) L 30.4 G/DL (32.0-36.0) L Red Cell Distribution Width 14.4 % (11.6-14.8) 14.6 % (11.6-14.8) Platelet Count 218 K/UL (150-450) 243 K/UL (150-450) Mean Platelet Volume 9.0 FL (6.5-10.1) 9.5 FL (6.5-10.1) Neutrophils (%) (Auto) 82.8 % (45.0-75.0) H % (45.0-75.0) Lymphocytes (%) (Auto) 11.6 % (20.0-45.0) L % (20.0-45.0) Monocytes (%) (Auto) 5.0 % (1.0-10.0) % (1.0-10.0) Eosinophils (%) (Auto) 0.0 % (0.0-3.0) % (0.0-3.0) Basophils (%) (Auto) 0.5 % (0.0-2.0) % (0.0-2.0) Sodium Level 148 mEQ/L (135-145) H 151 mEQ/L (135-145) H Potassium Level 5.3 mEQ/L (3.4-4.9) H 4.4 mEQ/L (3.4-4.9) Chloride Level 103 mEQ/L (98-107) 107 mEQ/L (98-107) Carbon Dioxide Level 28 mEQ/L (20-30) 27 mEQ/L (20-30) Anion Gap 17 (5-15) H 17 (5-15) H Blood Urea Nitrogen 58 mg/dL (7-23) H 58 mg/dL (7-23) H Creatinine 1.4 mg/dL (0.7-1.2) H 1.5 mg/dL (0.7-1.2) H Estimat Glomerular Filtration Rate mL/min (>60) mL/min (>60) Glucose Level 544 mg/dL (74-106) *H 359 mg/dL (74-106) #H Lactic Acid Level 3.10 mmol/L (0.66-2.22) H 3.40 mmol/L (0.66-2.22) H Calcium Level 9.2 mg/dL (8.6-10.2) 8.3 mg/dL (8.6-10.2) L Magnesium Level 3.0 mg/dL (1.7-2.5) H Total Bilirubin 3.3 mg/dL (0.0-1.2) H 2.6 mg/dL (0.0-1.2) H Direct Bilirubin 2.6 mg/dL (0.1-0.3) H 2.2 mg/dL (0.1-0.3) H Aspartate Amino Transf (AST/SGOT) 577 U/L (5-40) H 423 U/L (5-40) H Alanine Aminotransferase (ALT/SGPT) 482 U/L (3-41) H 372 U/L (3-41) H Alkaline Phosphatase 478 U/L (40-129) H 383 U/L (40-129) H Total Protein 8.2 g/dL (6.6-8.7) 7.0 g/dL (6.6-8.7) Albumin 2.9 g/dL (3.5-5.2) L 2.4 g/dL (3.5-5.2) L Globulin 5.3 g/dL Albumin/Globulin Ratio 0.5 (1.0-2.7) L Acetone Level Negative (NEGATIVE) Urine Color Jeanette Urine Appearance Slightly cloudy Urine pH 5 (4.5-8.0) Urine Specific [place] 1.025 (1.005-1.035) Urine Protein 3+ (NEGATIVE) H Urine Glucose (UA) 4+ (NEGATIVE) H Urine Ketones Negative (NEGATIVE) Urine Occult Blood 4+ (NEGATIVE) H Urine Nitrite Negative (NEGATIVE) Urine Bilirubin 2+ (NEGATIVE) H Urine Ictotest Urine Urobilinogen 8 MG/DL (0.0-1.0) H Urine Leukocyte Esterase 1+ (NEGATIVE) H Urine RBC 5-10 /HPF (0 - 0) H Urine WBC 5-10 /HPF (0 - 0) H Urine Squamous Epithelial Cells Few /LPF (NONE/OCC) Urine Transitional Epithelial Cells Few /LPF (NONE) H Urine Amorphous Sediment Many /LPF (NONE) H Urine Bacteria Few /HPF (NONE) Urine Coarse Granular Casts 5-10 /LPF (NONE) H Differential Total Cells Counted 100 Neutrophils % (Manual) 72 % (45-75) Lymphocytes % (Manual) 8 % (20-45) L Monocytes % (Manual) 2 % (1-10) Eosinophils % (Manual) 0 % (0-3) Basophils % (Manual) 0 % (0-2) Band Neutrophils 18 % (0-8) H Platelet Estimate Adequate Platelet Morphology Normal Macrocytosis 1+ Prothrombin Time 89.7 SEC (9.30-11.50) H Prothromb Time International Ratio 8.2 (0.9-1.1) *H Activated Partial Thromboplast Time 58 SEC (23-33) H Phosphorus Level 3.8 mg/dL (2.5-4.8) Lipase 1253 U/L (< 60) H General Appearance: mild distress Head: normocephalic EENT: PERRL/EOMI Neck: supple Respiratory: other - f2LNC Cardiovascular: tachycardia Gastrointestinal: gt - c/d/i Skin: normal inspection, normal color, no rash Current Medications Current Medications Medications (Trade) Dose Ordered Sig/Jamaal Route PRN Reason Start Time Stop Time Status Last Admin Dose Admin Acetaminophen (Tylenol) 650 mg Q4H PRN ORAL Fever 11/25/16 23:15 12/25/16 23:14 Albuterol/ Ipratropium (DuoNeb 0.5-3(2.5)mg/3ml) 3 ml Q4H PRN HHN Shortness of Breath 11/25/16 23:15 11/30/16 23:14 Amlodipine Besylate (Norvasc) 5 mg BID GT 11/26/16 09:00 12/26/16 08:59 11/26/16 09:58 Clonidine HCl (Catapres) 0.1 mg Q8H PRN GT sbp> 160 11/26/16 07:15 12/26/16 07:14 Dextrose (Dextrose 50%) STAT PRN IV Hypoglycemia 11/26/16 00:00 12/26/16 00:00 Doxazosin Mesylate (Cardura) 1 mg QHS GT 11/26/16 21:00 12/26/16 20:59 Insulin Aspart (NovoLOG) BEFORE MEALS AND HS SUBQ 11/26/16 06:30 12/26/16 06:29 11/26/16 13:00 Lorazepam (Ativan 2mg/ml 1ml) 2 mg Q2H PRN IV agitation 11/25/16 23:15 12/02/16 23:14 Morphine Sulfate (Morphine Sulfate) 4 mg Q4H PRN IVP Severe Pain (Pain Scale 7-10) 11/25/16 23:15 12/02/16 23:14 Nitroglycerin (Ntg) 0.4 mg Q5M PRN SL Prn Chest Pain 11/25/16 23:15 12/25/16 23:14 Ondansetron HCl (Zofran) 4 mg Q6H PRN IVP Nausea & Vomiting 11/25/16 23:15 12/25/16 23:14 Pantoprazole 40 mg 40 mg EVERY 12 HOURS IV 11/26/16 11:00 12/26/16 10:59 11/26/16 12:58 Piperacillin Sod/ Tazobactam Sod 3.375 gm/Sodium Chloride 110 ml @ 27.5 mls/hr EVERY 8 HOURS IVPB 11/26/16 06:00 12/03/16 05:59 11/26/16 06:15 Polyethylene Glycol (Miralax) 17 gm DAILYPRN PRN ORAL Constipation 11/25/16 23:15 12/25/16 23:14 Sodium Chloride (0.45% NS 1000ml) 1,000 ml @ 75 mls/hr [id number] IV 11/26/16 12:00 12/26/16 11:59 11/26/16 12:59 Tamsulosin HCl (Flomax) 0.4 mg BEDTIME ORAL 11/26/16 21:00 12/26/16 20:59 Tramadol HCl (Ultram) 50 mg BID PRN ORAL For Pain 11/25/16 23:15 12/02/16 23:14 Valproic Acid (Depakene) 500 mg THREE TIMES A DAY GT 11/26/16 09:00 12/26/16 08:59 11/26/16 09:52 Vancomycin HCl 1 ea 1 ea DAILY PRN MISC Per rx protocol 11/25/16 23:15 12/25/16 23:14 Vancomycin HCl/ Sodium Chloride (Vancomycin/ Sodium Chloride) 325 ml @ 162.5 mls/ hr Q24H IVPB 11/26/16 22:00 12/01/16 21:59 GI: Plan Problems: (1) Leukocytosis (2) Common bile duct (CBD) obstruction (3) Coffee ground vomiting (4) Acute pancreatitis (5) Feeding by G-tube Plan APCT reviewed >> Cholelithiasis. Dilated common bile duct. Etiology of this is uncertain raises concern for downstream obstruction by an occult stone. This also raises possibility that the above findings could be due to gallstone pancreatitis. INR = 8.2 pt transferred to ICU ordered MRCP to evaluate CBD dilation/gallstone pancreatitis ppi BID monitor H&H, transfuse prn hold GTFs, maintain NPO + IVFs fu surgical recs fu labs Discussed with Dr. Mariano. Thank you for referring this patient, we will follow. FLOYD MARIANO 11/27/16 1241: History of Present Illness General Reason for Hospitalization: Abnormal Labs Present Illness Home Meds Reported Medications Tamsulosin Hcl (TAMSULOSIN HCL*) 0.4 Mg Cap.er.24h, 0.4 MG ORAL BEDTIME, CAP 11/26/16 Warfarin Sod* (WARFARIN SOD*) 3 Mg Tablet, 3 MG ORAL DAILY, TAB 11/26/16 Pantoprazole* (PANTOPRAZOLE*) 40 Mg Tablet.dr, 40 MG ORAL DAILY, TAB 11/26/16 Atorvastatin Calcium* (ATORVASTATIN CALCIUM*) 20 Mg Tablet, 20 MG GT BEDTIME, TAB 11/26/16 Acetaminophen* (ACETAMINOPHEN*) 325 Mg Tablet, 650 MG GT Q4H Y for Mild Pain/ Temp > 100.5, TAB 03/04/15 Tramadol Hcl* (ULTRAM*) 50 Mg Tablet, 50 MG ORAL BID Y for For Pain, TAB 0 Refills 02/23/15 Vit C/Ascorbate Ca/Ascorb Sod (VITAMIN C 500 MG/15 ML LIQUID) 500 Mg/15 Ml Liquid, 500 MG GT DAILY, ML 02/23/15 Ondansetron* (ZOFRAN*) 4 Mg Tablet, 4 MG ORAL Q6H Y for Nausea & Vomiting, TAB 02/23/15 Esomeprazole Magnesium (NEXIUM) 40 Mg Suspdr.pkt, 40 MG GT DAILY, PKT 02/23/15 Multivitamin with Minerals (Multivitamins with Minerals) 1 Each Tablet, 1 TAB GT DAILY, TAB 02/23/15 Furosemide* (LASIX*) 20 Mg Tablet, 20 MG GT DAILY, TAB 02/23/15 Na Phos,M-B/Na Phos,Di-Ba* (FLEET ENEMA*) 133 Ml Enema, 133 ML RECTAL DAILY Y for Constipation, ML 0 Refills 02/23/15 Docusate Sodium (Docusate Sodium) 100 Mg/10 Ml Udc, 250 MG GT DAILY, EA 02/23/15 Doxazosin Mesylate* (CARDURA*) 1 Mg Tablet, 1 MG GT QHS, TAB 02/23/15 Calcium Carbonate/Vitamin D3 (Calcium 500 + Vit D3 400 Tab) 1 Each Tablet, 2 TAB GT DAILY, TAB 02/23/15 Albuterol Sulfate* (ALBUTEROL SULFATE HHN*) 2.5 Mg/3 Ml Vial.neb, 2.5 MG HHN Q4HR Y 03/30/13 Clonidine Hcl* (CATAPRES*) 0.1 Mg Tablet, 0.1 MG GT Q8HR Y 03/30/13 Magnesium Hydroxide (Milk of Magnesia) 30 Ml Susp, 30 ML GT DAILY Y for Constipation 03/30/13 Amlodipine Besylate (Norvasc) 5 Mg Tab, 5 MG GT BID 03/30/13 Valproic Acid (Depakene) 250 Mg Cap, 500 MG GT TID 03/30/13 Potassium Chloride* (K-DUR*) 20 Meq Tab.er.prt, 20 MEQ GT DAILY, #7 TAB 03/30/13 Allergies: Coded Allergies: No Known Allergies (Verified , 12/27/08) GI: Plan Plan The patient was seen and examined at bedside and all new and available data was reviewed in the patients chart. I agree with the above findings, impression and plan. (Patient seen earlier today. Signature stamp does not reflect patient encounter time.). -Gabi Galan MDh Nic Donohue Nov 26, 2016 13:37 FLOYD MARIANO Nov 27, 2016 12:41
--- NOTE | 2016-11-26 13:53 | Cardiac Electrophysiology PN ---
Subjective Subjective [id number]. Tachy, PAF, HTN, Sepsis, PEG, nonverbal,CVA, Pancreatitis Objective Last 24 Hour Vital Signs Date Time Temp Pulse Resp B/P Pulse Ox O2 Delivery O2 Flow Rate FiO2 11/26/16 11:35 97.1 116 22 143/61 93 Nasal Cannula 3.0 11/26/16 09:58 117 116/74 11/26/16 08:01 96.3 117 20 116/74 98 Nasal Cannula 3.0 11/26/16 08:00 120 11/26/16 04:07 97.9 106 21 118/78 94 Nasal Cannula 4.0 11/26/16 04:00 101 11/26/16 02:25 98.2 97 21 145/63 99 Nasal Cannula 4.0 11/26/16 01:45 101.8 98 23 115/76 99 Nasal Cannula 4.0 11/26/16 01:10 101.8 98 23 115/76 99 Nasal Cannula 4.0 11/26/16 00:45 101.8 98 23 117/80 96 Nasal Cannula 4.0 11/25/16 23:45 101.8 96 35 99/68 97 Nasal Cannula 4.0 11/25/16 23:03 101.8 94 36 117/60 95 Nasal Cannula 2.0 11/25/16 22:34 101.8 11/25/16 21:58 112 33 107/82 99 Nasal Cannula 2.0 11/25/16 21:20 111 26 107/82 92 Nasal Cannula 2.0 Intake and Output 11/25/16 11/26/16 19:00 07:00 Intake Total 2275 ml Output Total 450 ml Balance 1825 ml Intake IV Total 2275 ml Output Urine Total 450 ml Laboratory Tests Test 11/25/16 21:30 11/25/16 21:39 11/25/16 23:30 11/26/16 06:00 Arterial Blood pH 7.469 (7.350-7.450) Arterial Blood Partial Pressure CO2 39.7 mmHg (35.0-45.0) Arterial Blood Partial Pressure O2 67.2 mmHg (75.0-100.0) L Arterial Blood HCO3 28.2 mmol/L (22.0-26.0) H Arterial Blood Oxygen Saturation 93.9 % (92.0-98.0) Arterial Blood Base Excess 4.3 Carlos Test Positive White Blood Count 12.0 K/UL (4.8-10.8) H 12.4 K/UL (4.8-10.8) H Red Blood Count 5.46 M/UL (4.70-6.10) 5.04 M/UL (4.70-6.10) Hemoglobin 17.0 G/DL (14.2-18.0) 15.4 G/DL (14.2-18.0) Hematocrit 53.9 % (42.0-52.0) H 50.6 % (42.0-52.0) Mean Corpuscular Volume 99 FL (80-99) 100 FL (80-99) H Mean Corpuscular Hemoglobin 31.0 PG (27.0-31.0) 30.5 PG (27.0-31.0) Mean Corpuscular Hemoglobin Concent 31.4 G/DL (32.0-36.0) L 30.4 G/DL (32.0-36.0) L Red Cell Distribution Width 14.4 % (11.6-14.8) 14.6 % (11.6-14.8) Platelet Count 218 K/UL (150-450) 243 K/UL (150-450) Mean Platelet Volume 9.0 FL (6.5-10.1) 9.5 FL (6.5-10.1) Neutrophils (%) (Auto) 82.8 % (45.0-75.0) H % (45.0-75.0) Lymphocytes (%) (Auto) 11.6 % (20.0-45.0) L % (20.0-45.0) Monocytes (%) (Auto) 5.0 % (1.0-10.0) % (1.0-10.0) Eosinophils (%) (Auto) 0.0 % (0.0-3.0) % (0.0-3.0) Basophils (%) (Auto) 0.5 % (0.0-2.0) % (0.0-2.0) Sodium Level 148 mEQ/L (135-145) H 151 mEQ/L (135-145) H Potassium Level 5.3 mEQ/L (3.4-4.9) H 4.4 mEQ/L (3.4-4.9) Chloride Level 103 mEQ/L (98-107) 107 mEQ/L (98-107) Carbon Dioxide Level 28 mEQ/L (20-30) 27 mEQ/L (20-30) Anion Gap 17 (5-15) H 17 (5-15) H Blood Urea Nitrogen 58 mg/dL (7-23) H 58 mg/dL (7-23) H Creatinine 1.4 mg/dL (0.7-1.2) H 1.5 mg/dL (0.7-1.2) H Estimat Glomerular Filtration Rate mL/min (>60) mL/min (>60) Glucose Level 544 mg/dL (74-106) *H 359 mg/dL (74-106) #H Lactic Acid Level 3.10 mmol/L (0.66-2.22) H 3.40 mmol/L (0.66-2.22) H Calcium Level 9.2 mg/dL (8.6-10.2) 8.3 mg/dL (8.6-10.2) L Magnesium Level 3.0 mg/dL (1.7-2.5) H Total Bilirubin 3.3 mg/dL (0.0-1.2) H 2.6 mg/dL (0.0-1.2) H Direct Bilirubin 2.6 mg/dL (0.1-0.3) H 2.2 mg/dL (0.1-0.3) H Aspartate Amino Transf (AST/SGOT) 577 U/L (5-40) H 423 U/L (5-40) H Alanine Aminotransferase (ALT/SGPT) 482 U/L (3-41) H 372 U/L (3-41) H Alkaline Phosphatase 478 U/L (40-129) H 383 U/L (40-129) H Total Protein 8.2 g/dL (6.6-8.7) 7.0 g/dL (6.6-8.7) Albumin 2.9 g/dL (3.5-5.2) L 2.4 g/dL (3.5-5.2) L Globulin 5.3 g/dL Albumin/Globulin Ratio 0.5 (1.0-2.7) L Acetone Level Negative (NEGATIVE) Urine Color Jeanette Urine Appearance Slightly cloudy Urine pH 5 (4.5-8.0) Urine Specific [place] 1.025 (1.005-1.035) Urine Protein 3+ (NEGATIVE) H Urine Glucose (UA) 4+ (NEGATIVE) H Urine Ketones Negative (NEGATIVE) Urine Occult Blood 4+ (NEGATIVE) H Urine Nitrite Negative (NEGATIVE) Urine Bilirubin 2+ (NEGATIVE) H Urine Ictotest Urine Urobilinogen 8 MG/DL (0.0-1.0) H Urine Leukocyte Esterase 1+ (NEGATIVE) H Urine RBC 5-10 /HPF (0 - 0) H Urine WBC 5-10 /HPF (0 - 0) H Urine Squamous Epithelial Cells Few /LPF (NONE/OCC) Urine Transitional Epithelial Cells Few /LPF (NONE) H Urine Amorphous Sediment Many /LPF (NONE) H Urine Bacteria Few /HPF (NONE) Urine Coarse Granular Casts 5-10 /LPF (NONE) H Differential Total Cells Counted 100 Neutrophils % (Manual) 72 % (45-75) Lymphocytes % (Manual) 8 % (20-45) L Monocytes % (Manual) 2 % (1-10) Eosinophils % (Manual) 0 % (0-3) Basophils % (Manual) 0 % (0-2) Band Neutrophils 18 % (0-8) H Platelet Estimate Adequate Platelet Morphology Normal Macrocytosis 1+ Prothrombin Time 89.7 SEC (9.30-11.50) H Prothromb Time International Ratio 8.2 (0.9-1.1) *H Activated Partial Thromboplast Time 58 SEC (23-33) H Phosphorus Level 3.8 mg/dL (2.5-4.8) Lipase 1253 U/L (< 60) H BRYON AC Nov 26, 2016 13:53
--- NOTE | 2016-11-26 14:52 | Infectious Diseases Prog Note ---
Assessment/Plan Problems: (1) HCAP (healthcare-associated pneumonia) Assessment & Plan: with B/L basilar infiltrates , continue vancomycin and zosyn , monitor CXR, send sputum for culture, pulmonary is following (2) UTI (urinary tract infection) Assessment & Plan: already on zosyn, await urine culture (3) Sepsis Assessment & Plan: due to acute pancreatitis with phlegmon, continue vancomycin and zosyn, blood culture is pending, needs source control to for CBD obstruction with possible ERCP. (4) Choledocholithiasis Assessment & Plan: possible ascending cholangitis ,continue zosyn and vancomycin , recommend MRCP for further evaluation , and ERCP for source control , GI is following (5) FABIOLA (acute kidney injury) Assessment & Plan: due to sepsis, continue hydration, avoid nephrotoxic meds (6) Hyperglycemia Assessment & Plan: due to pancreatitis , continue insulin , and titrate to keep glucose level between 80-120 (7) Coagulopathy Assessment & Plan: due to coumadin, on hold, tranfuse FFP to revers INR, cardiology is following (8) Acute pancreatitis Assessment & Plan: complicated with intraabdominal phlegmon , will continue wide spectrum antibiotics therapy, may need ERCP for source control to relief CBD if really obstructed. (9) Coffee ground vomiting Assessment & Plan: due to coagulopathy, from coumadin, monitor H/H ,transfuse blood as needed , give FFP to reverse INR. GI and hematology are following (10) Common bile duct (CBD) obstruction Assessment & Plan: recommend MRCP for further evaluation and ERCP to remove the obstruction once hemodynamically stable. GI is following Subjective Allergies: Coded Allergies: No Known Allergies (Verified , 12/27/08) Objective Vital Signs Last 24 Hour Vital Signs Date Time Temp Pulse Resp B/P Pulse Ox O2 Delivery O2 Flow Rate FiO2 11/26/16 11:35 97.1 116 22 143/61 93 Nasal Cannula 3.0 11/26/16 09:58 117 116/74 11/26/16 08:01 96.3 117 20 116/74 98 Nasal Cannula 3.0 11/26/16 08:00 120 11/26/16 04:07 97.9 106 21 118/78 94 Nasal Cannula 4.0 11/26/16 04:00 101 11/26/16 02:25 98.2 97 21 145/63 99 Nasal Cannula 4.0 11/26/16 01:45 101.8 98 23 115/76 99 Nasal Cannula 4.0 11/26/16 01:10 101.8 98 23 115/76 99 Nasal Cannula 4.0 11/26/16 00:45 101.8 98 23 117/80 96 Nasal Cannula 4.0 11/25/16 23:45 101.8 96 35 99/68 97 Nasal Cannula 4.0 11/25/16 23:03 101.8 94 36 117/60 95 Nasal Cannula 2.0 11/25/16 22:34 101.8 11/25/16 21:58 112 33 107/82 99 Nasal Cannula 2.0 11/25/16 21:20 111 26 107/82 92 Nasal Cannula 2.0 Height (Feet): 5 Height (Inches): 7.00 Weight (Pounds): 221 Laboratory Tests Test 11/25/16 21:30 11/25/16 21:39 11/25/16 23:30 11/26/16 06:00 Arterial Blood pH 7.469 (7.350-7.450) Arterial Blood Partial Pressure CO2 39.7 mmHg (35.0-45.0) Arterial Blood Partial Pressure O2 67.2 mmHg (75.0-100.0) L Arterial Blood HCO3 28.2 mmol/L (22.0-26.0) H Arterial Blood Oxygen Saturation 93.9 % (92.0-98.0) Arterial Blood Base Excess 4.3 Carlos Test Positive White Blood Count 12.0 K/UL (4.8-10.8) H 12.4 K/UL (4.8-10.8) H Red Blood Count 5.46 M/UL (4.70-6.10) 5.04 M/UL (4.70-6.10) Hemoglobin 17.0 G/DL (14.2-18.0) 15.4 G/DL (14.2-18.0) Hematocrit 53.9 % (42.0-52.0) H 50.6 % (42.0-52.0) Mean Corpuscular Volume 99 FL (80-99) 100 FL (80-99) H Mean Corpuscular Hemoglobin 31.0 PG (27.0-31.0) 30.5 PG (27.0-31.0) Mean Corpuscular Hemoglobin Concent 31.4 G/DL (32.0-36.0) L 30.4 G/DL (32.0-36.0) L Red Cell Distribution Width 14.4 % (11.6-14.8) 14.6 % (11.6-14.8) Platelet Count 218 K/UL (150-450) 243 K/UL (150-450) Mean Platelet Volume 9.0 FL (6.5-10.1) 9.5 FL (6.5-10.1) Neutrophils (%) (Auto) 82.8 % (45.0-75.0) H % (45.0-75.0) Lymphocytes (%) (Auto) 11.6 % (20.0-45.0) L % (20.0-45.0) Monocytes (%) (Auto) 5.0 % (1.0-10.0) % (1.0-10.0) Eosinophils (%) (Auto) 0.0 % (0.0-3.0) % (0.0-3.0) Basophils (%) (Auto) 0.5 % (0.0-2.0) % (0.0-2.0) Sodium Level 148 mEQ/L (135-145) H 151 mEQ/L (135-145) H Potassium Level 5.3 mEQ/L (3.4-4.9) H 4.4 mEQ/L (3.4-4.9) Chloride Level 103 mEQ/L (98-107) 107 mEQ/L (98-107) Carbon Dioxide Level 28 mEQ/L (20-30) 27 mEQ/L (20-30) Anion Gap 17 (5-15) H 17 (5-15) H Blood Urea Nitrogen 58 mg/dL (7-23) H 58 mg/dL (7-23) H Creatinine 1.4 mg/dL (0.7-1.2) H 1.5 mg/dL (0.7-1.2) H Estimat Glomerular Filtration Rate mL/min (>60) mL/min (>60) Glucose Level 544 mg/dL (74-106) *H 359 mg/dL (74-106) #H Lactic Acid Level 3.10 mmol/L (0.66-2.22) H 3.40 mmol/L (0.66-2.22) H Calcium Level 9.2 mg/dL (8.6-10.2) 8.3 mg/dL (8.6-10.2) L Magnesium Level 3.0 mg/dL (1.7-2.5) H Total Bilirubin 3.3 mg/dL (0.0-1.2) H 2.6 mg/dL (0.0-1.2) H Direct Bilirubin 2.6 mg/dL (0.1-0.3) H 2.2 mg/dL (0.1-0.3) H Aspartate Amino Transf (AST/SGOT) 577 U/L (5-40) H 423 U/L (5-40) H Alanine Aminotransferase (ALT/SGPT) 482 U/L (3-41) H 372 U/L (3-41) H Alkaline Phosphatase 478 U/L (40-129) H 383 U/L (40-129) H Total Protein 8.2 g/dL (6.6-8.7) 7.0 g/dL (6.6-8.7) Albumin 2.9 g/dL (3.5-5.2) L 2.4 g/dL (3.5-5.2) L Globulin 5.3 g/dL Albumin/Globulin Ratio 0.5 (1.0-2.7) L Acetone Level Negative (NEGATIVE) Urine Color Jeanette Urine Appearance Slightly cloudy Urine pH 5 (4.5-8.0) Urine Specific [place] 1.025 (1.005-1.035) Urine Protein 3+ (NEGATIVE) H Urine Glucose (UA) 4+ (NEGATIVE) H Urine Ketones Negative (NEGATIVE) Urine Occult Blood 4+ (NEGATIVE) H Urine Nitrite Negative (NEGATIVE) Urine Bilirubin 2+ (NEGATIVE) H Urine Ictotest Urine Urobilinogen 8 MG/DL (0.0-1.0) H Urine Leukocyte Esterase 1+ (NEGATIVE) H Urine RBC 5-10 /HPF (0 - 0) H Urine WBC 5-10 /HPF (0 - 0) H Urine Squamous Epithelial Cells Few /LPF (NONE/OCC) Urine Transitional Epithelial Cells Few /LPF (NONE) H Urine Amorphous Sediment Many /LPF (NONE) H Urine Bacteria Few /HPF (NONE) Urine Coarse Granular Casts 5-10 /LPF (NONE) H Differential Total Cells Counted 100 Neutrophils % (Manual) 72 % (45-75) Lymphocytes % (Manual) 8 % (20-45) L Monocytes % (Manual) 2 % (1-10) Eosinophils % (Manual) 0 % (0-3) Basophils % (Manual) 0 % (0-2) Band Neutrophils 18 % (0-8) H Platelet Estimate Adequate Platelet Morphology Normal Macrocytosis 1+ Prothrombin Time 89.7 SEC (9.30-11.50) H Prothromb Time International Ratio 8.2 (0.9-1.1) *H Activated Partial Thromboplast Time 58 SEC (23-33) H Phosphorus Level 3.8 mg/dL (2.5-4.8) Lipase 1253 U/L (< 60) H Current Medications Medications (Trade) Dose Ordered Sig/Jamaal Route PRN Reason Start Time Stop Time Status Last Admin Dose Admin Acetaminophen (Tylenol) 650 mg Q4H PRN ORAL Fever 11/25/16 23:15 12/25/16 23:14 Albuterol/ Ipratropium (DuoNeb 0.5-3(2.5)mg/3ml) 3 ml Q4H PRN HHN Shortness of Breath 11/25/16 23:15 11/30/16 23:14 Amlodipine Besylate (Norvasc) 5 mg BID GT 11/26/16 09:00 12/26/16 08:59 11/26/16 09:58 Clonidine HCl (Catapres) 0.1 mg Q8H PRN GT sbp> 160 11/26/16 07:15 12/26/16 07:14 Dextrose (Dextrose 50%) STAT PRN IV Hypoglycemia 11/26/16 00:00 12/26/16 00:00 Doxazosin Mesylate (Cardura) 1 mg QHS GT 11/26/16 21:00 12/26/16 20:59 Insulin Aspart (NovoLOG) BEFORE MEALS AND HS SUBQ 11/26/16 06:30 12/26/16 06:29 11/26/16 13:00 Lorazepam (Ativan 2mg/ml 1ml) 2 mg Q2H PRN IV agitation 11/25/16 23:15 12/02/16 23:14 Morphine Sulfate (Morphine Sulfate) 4 mg Q4H PRN IVP Severe Pain (Pain Scale 7-10) 11/25/16 23:15 12/02/16 23:14 Nitroglycerin (Ntg) 0.4 mg Q5M PRN SL Prn Chest Pain 11/25/16 23:15 12/25/16 23:14 Ondansetron HCl (Zofran) 4 mg Q6H PRN IVP Nausea & Vomiting 11/25/16 23:15 12/25/16 23:14 Pantoprazole (Protonix) 40 mg ACBREAKFAST IVP 11/27/16 06:30 12/27/16 06:29 Piperacillin Sod/ Tazobactam Sod 3.375 gm/Sodium Chloride 110 ml @ 27.5 mls/hr EVERY 8 HOURS IVPB 11/26/16 06:00 12/03/16 05:59 11/26/16 06:15 Polyethylene Glycol (Miralax) 17 gm DAILYPRN PRN ORAL Constipation 11/25/16 23:15 12/25/16 23:14 Sodium Chloride (0.45% NS 1000ml) 1,000 ml @ 75 mls/hr [id number] IV 11/26/16 12:00 12/26/16 11:59 11/26/16 12:59 Tamsulosin HCl (Flomax) 0.4 mg BEDTIME ORAL 11/26/16 21:00 12/26/16 20:59 Tramadol HCl (Ultram) 50 mg BID PRN ORAL For Pain 11/25/16 23:15 12/02/16 23:14 Valproic Acid 500 mg 500 mg THREE TIMES A DAY GT 11/26/16 09:00 12/26/16 08:59 11/26/16 09:52 Vancomycin HCl 1 ea 1 ea DAILY PRN MISC Per rx protocol 11/25/16 23:15 12/25/16 23:14 Vancomycin HCl/ Sodium Chloride (Vancomycin/ Sodium Chloride) 325 ml @ 162.5 mls/ hr Q24H IVPB 11/26/16 22:00 12/01/16 21:59 Ariana Acevedo M.D. Nov 26, 2016 14:52
[2016-11-26 15:05] LABS: ABG ALLEN TEST POSITIVE; ABG BASE EXCESS 0; ABG PCO2 38.1 mmHg (35.0-45.0)
--- NOTE | 2016-11-26 15:35 | General Progress Note ---
Progress Note Progress Note pt has INR of 8 with hematemesis, needs FFP. We can't get hold of any relatives. Pt can't sign any consents. SONIA ALBERTS Nov 26, 2016 15:35
--- NOTE | 2016-11-26 16:45 | Wound Care Consultation ---
Wound Assessment Wound Assessment #1: Wound Present on Admission: Yes New Wound: No Status Change of Wound: No Wound Location Body Site Modif: mid Wound Location Body Site: sacral - extended to left buttock Wound Type: scar - full thickness scar tissue Cachorro Test: Does not Cachorro Wound Thickness: Full Thickness Wound Length: 5.0 Wound Width: 3.0 Wound Depth: utd Percent of Wound [place]/Red: 100 Wound Drainage Amount: None Wound Drainage Odor: None/Absent Tissue Surrounding Wound: Intact Wound General Appearance: Asymptomatic Wound Assessment #2: Wound Number: #2 Wound Present on Admission: Yes New Wound: No Status Change of Wound: No Wound Location Body Site Modif: right, lower, lateral Wound Location Body Site: leg Wound Type: scar - full thickness scar tissue Cachorro Test: Does not Cachorro Wound Thickness: Full Thickness Wound Length: 8.0 Wound Width: 2.0 Wound Depth: utd Percent of Wound [place]/Red: 100 Wound Drainage Amount: None Wound Drainage Odor: None/Absent Tissue Surrounding Wound: Intact Wound General Appearance: Asymptomatic Wound Comment #1 Sacral full thickness scar tissue that extends to left buttock #2 Right lower lateral leg full thickness scar tissue Pt is high risk for skin breakdown. Recommendation -Keep clean and dry -Turn and reposition -Low air loss overlay mattress -Offload both heels -Heel protector on both heels -Optimize nutrition -Assess and f/u accordingly for any changes HOLLI GODINEZ RN Nov 26, 2016 16:45
--- NOTE | 2016-11-26 19:39 | Cardiology Report ---
APPROVED REPORT EXAM: Two-dimensional and M-mode echocardiogram with Doppler and color Doppler. INDICATION LV function Normal left ventricular chamber size. Mild anteroseptal hypokinesis to extent visualized. Left ventricular ejection fraction grossly estimated to be 40%. Study quality precludes accurate assessment of regional wall motion. Moderate left ventricular hypertrophy by 2D. Anterior Echo-free space, may be due to pericardial fat or effusion. All other cardiac chamber sizes are within normal limits. Focal aortic valve sclerosis with adequate cusp excursion. Thickened mitral valve leaflets with normal excursion. Mitral annulus and aortic root calcification. Pulmonic valve not well visualized. Normal tricuspid valve structure. Subcostal views unobtainable due to G-tube location. A color flow and spectral Doppler study was performed and revealed: Trace aortic regurgitation. Trace mitral regurgitation. Mitral diastolic velocities suggest reduced left ventricular relaxation c/w mild LV diastolic dysfunction (Grade I). Trace tricuspid regurgitation. Tricuspid systolic velocities suggests peak right ventricular systolic pressure of 13 mmHg
--- NOTE | 2016-11-26 19:48 | Cardiology Report ---
APPROVED REPORT EKG Measurement Heart [id number] Sinus tachycardia with premature atrial complexes Left axis deviation Inferior infarct, age undetermined Anterolateral infarct, age undetermined Abnormal ECG
[2016-11-26] MEDS ORDERED: Doxazosin 1mg Tab GT SCH (21:00)
[2016-11-26] MEDS ORDERED: Tamsulosin 0.4mg cap ORAL SCH (21:00)
--- NOTE | 2016-11-26 21:58 | History and Physical Report ---
DATE OF ADMISSION: 11/25/2016 REASON FOR ADMISSION: Hyperglycemia, sepsis, and diaphoresis. HISTORY OF PRESENT ILLNESS: The patient is a very poor historian and cannot get any history from the patient, but currently at the [facility], blood sugar is elevated. The patient's has been sepsis and UTI. The patient has also history of G-tube and history of atrial fibrillation and is still tachycardic in the [facility]. I cannot obtain any history from the patient. He is a very poor historian. PAST MEDICAL HISTORY: Significant for paroxysmal atrial fibrillation, history of anemia, history of coagulopathy, history of osteomyelitis, history of sepsis, history of seizures, history of dysphagia, history of DKA, history of NIDDM, dementia, history of hypertension, hyperlipidemia, BPH, dysphagia, and mood disorder. PAST SURGICAL HISTORY: PEG as outpatient. MEDICATIONS: Lipitor, Norvasc, clonidine, Colace, doxazosin, Nexium, Lasix, Coumadin, Protonix, Flomax, and Depakote. ALLERGIES: No known allergies. SOCIAL HISTORY: Unable to obtain. FAMILY HISTORY: Unable to obtain. REVIEW OF SYSTEMS: Unable to obtain. Very poor historian. PHYSICAL EXAMINATION: VITAL SIGNS: Temperature is 97.9 degrees, pulse is 107, respirations 18, and blood pressure 118/78. HEENT: PERRLA. NECK: Supple. No lymphadenopathy. CHEST: Clear to auscultation. CARDIOVASCULAR: Irregularly irregular. He does have a murmur, which is chronic. GASTROINTESTINAL: Distended. Positive bowel sounds. No organomegaly. Abdomen is soft. G-tube site is intact. EXTREMITIES: 1+ edema. Reflexes are equal on both sides. NEUROLOGIC: The patient is alert and oriented x0, which is chronic. SKIN: For the skin integrity, please refer to the nursing notes. LABORATORY DATA: WBC of 12, hemoglobin of 17, hematocrit of 218,000. Sodium 151, calcium 4.4, BUN 15, creatinine 1.5, and glucose 359. Total bilirubin 2.6. AST of 425 and ALT of 372. ASSESSMENT AND PLAN: The patient generally was felt to have a diabetic ketoacidosis, sepsis, TMA on the x-ray, elevated liver function tests, atrial fibrillation with rapid ventricular response, and possibly the images was cholelithiasis and choledocholithiasis. For that, the patient also has elevated lipase of 1253. The patient is going to be transferred to ICU for that reason. I have asked Dr. Duke, Dr. Acevedo, Dr. Hayes, Dr. Wilson, Dr. Garcia, Dr. Ramirez, and Dr. Oliveira to see the patient for the above mentioned diagnoses and treatment. Aliza Faria M.D. DR: KIMBER JOB#: [id number] CC:
[2016-11-26] MEDS ORDERED: Vancomycin 1.5 GM in NS 325 ML IVPB SCH (22:00)
--- NOTE | 2016-11-26 22:58 | Consultation ---
DATE OF CONSULTATION: INFECTIOUS DISEASES CONSULTATION CONSULTING PHYSICIAN: Ariana Acevedo M.D. REQUESTING PHYSICIAN: Aliza Faria M.D. REASON FOR CONSULTATION: Sepsis, acute pancreatitis, coffee-ground emesis, and intra-abdominal phlegmon, recommendation for antibiotics therapy. HISTORY OF PRESENT ILLNESS: The patient is a 76-year-old male with dementia, seizure, CVA, aphasia, hypertension, and dysphagia, status post PEG tube placement, was sent from [facility] for elevated blood glucose and concern about sepsis. The patient had some worsening in clinical condition regarding his mental status. He had poor oral tolerance to tube feeding. The patient was sent to the emergency room at [facility] for further evaluation and management. He was found to be febrile with temperature of 101.8 and a pulse of 111, met the criteria for sepsis. His white count was found to be elevated. The patient was found to be septic with common bile duct obstruction and acute pancreatitis. Later on, he had coffee-ground emesis on the day of admission due to elevated INR, which was 8.2. The patient was transferred in the intensive care unit for further management and evaluation and I was consulted by the primary provider for antibiotics recommendation and further management. As of note, the patient is demented, cannot provide any history. History was mainly obtained from the medical record. PAST MEDICAL HISTORY: Significant for atrial fibrillation, hypertension, dysphagia, status post PEG tube placement, CVA, dementia, aphasia, and seizure disorder. PAST SURGICAL HISTORY: PEG tube placement. ALLERGIES: He has no known drug allergy. MEDICATIONS: The patient was started on vancomycin and Zosyn by the ladder operator. For the rest of the medications, please refer to MAR. FAMILY HISTORY: Unable to obtain. SOCIAL HISTORY: not documented . REVIEW OF SYSTEMS: Unable to obtain at this point. The patient is demented, cannot provide any history. PHYSICAL EXAMINATION: VITAL SIGNS: Temperature 97.1, pulse 116, respirations 22, blood pressure 143/61, and O2 saturation 93% on three liters nasal cannula. GENERAL: Elderly male, obese, lying in bed, on Venti mask. Tachypneic, not in acute distress. HEENT: Normocephalic and atraumatic. Pupils reactive to light. Dry oral mucosa. NECK: Supple. No lymphadenopathy. CARDIOVASCULAR: Tachycardic. S1 and S2 positive. LUNGS: He has diminished breathing sounds on the bases with crackles. ABDOMEN: Soft, distended, mildly tender. No rebound. No organomegaly. Positive ascites. EXTREMITIES: No edema or cyanosis. LABORATORY AND DIAGNOSTIC DATA: White count 12.4, hemoglobin of 15.4, hematocrit 50.6, and platelet count of 243,000. BUN 58, creatinine of 1.5. INR of 8.2. Urinalysis showed leukocyte esterase, WBC 5 to 10, and few bacteria. Imaging, chest x-ray showed basilar and perihilar atelectasis, possible small left pleural effusion. Abdominal CT showed wall thickening of the duodenum, infiltration of the peripancreatic duodenal fat, fluid and phlegmon extending along the mesenteric route and bilateral paracolic gutter, may represent pancreatitis with reactive change of the adjacent duodenal wall versus primary duodenum pathology. Cholelithiasis, dilated common bile duct, possible occult stone, distal esophageal sphincter patulous. Dilation of the distal esophagus. Bilateral lower lobe basilar pulmonary parenchymal disease, suspect represents acute infiltrate and chronic progressive fibrotic changes, diverticulosis with no evidence of diverticulitis. ASSESSMENT AND PLAN: 1. Healthcare-acquired pneumonia with bilateral basal infiltration. The patient on Zosyn and vancomycin. We will continue both. Send blood culture and sputum culture. 2. Urinary tract infection. The patient already on Zosyn. We will send urine culture. 3. Sepsis due to the above and intra-abdominal phlegmon. Continue Zosyn and vancomycin. Send blood culture. Recommend systemic inflammatory response syndrome control for common bile duct obstruction with possible ERCP. 4. Choledocholithiasis. Possible ascending cholangitis. Continue Zosyn and vancomycin, empiric treatment. Recommend MRCP for further evaluation and ERCP for systemic inflammatory response syndrome control. GI is following. 5. Acute renal failure due to sepsis. Continue hydration, avoid nephrotoxic medications. 6. Hyperglycemia due to pancreatitis. Continue insulin and titrate to keep glucose between 80 to 120. 7. Coagulopathy due to Coumadin, which is on hold. Transfuse fresh frozen plasma. Reverse INR. Cardiology is following. 8. Acute pancreatitis complicated with intra-abdominal phlegmon. We will continue broad-spectrum antibiotics therapy, may need ERCP for systemic inflammatory response syndrome control to relieve common bile duct if really obstructed. 9. Coffee-ground emesis due to coagulopathy from Coumadin. Monitor hemoglobin and hematocrit. Transfuse blood as needed. Give fresh frozen plasma to reverse INR. GI and Hematology is following. 10. Common bile duct obstruction. Recommend MRCP for further evaluation and ERCP to remove the obstruction once hemodynamically stable. Ariana Acevedo M.D. DR: CHOCO JOB#: [id number] CC: JOSE CARLOS
[2016-11-27] VITALS (26 sets, daily range): BP systolic 81–142; BP diastolic 45–64
[2016-11-27 00:01] LABS: INR 2.1 (0.9-1.1); PROTHROMBIN TIME 21.9 SEC (9.30-11.50)
[2016-11-27] MEDS: Piperacillin/Tazobactam 3.375 GM in NS 110 ML IVPB SCH ×2 (04:00→12:08)
[2016-11-27] MEDS: NovoLOG Insulin Flexpen SUBQ SCH ×4 (05:37→21:24)
--- NOTE | 2016-11-27 06:07 | General Progress Note ---
Assessment/Plan Problem List: (1) Hyperglycemia ICD Codes: R73.9 - Hyperglycemia, unspecified SNOMED: 07773007 (2) FABIOLA (acute kidney injury) ICD Codes: N17.9 - Acute kidney failure, unspecified SNOMED: 50403004 (3) Coagulopathy ICD Codes: D68.9 - Coagulopathy SNOMED: 39713404 (4) Acute pancreatitis ICD Codes: K85.90 - Acute pancreatitis without necrosis or infection, unspecified SNOMED: 263137102 Qualifiers: Qualified Codes: K85.10 - Biliary acute pancreatitis without necrosis or infection Assessment/Plan add Levemir 8 units bid continue Novolog sliding scale as is Subjective ROS Limited/Unobtainable: Yes Allergies: Coded Allergies: No Known Allergies (Verified , 12/27/08) Subjective events noted in icu - on O2 mask Objective Last 24 Hour Vital Signs Date Time Temp Pulse Resp B/P Pulse Ox O2 Delivery O2 Flow Rate FiO2 11/27/16 05:01 97 28 89/60 100 Non-Rebreather 15.0 100 11/27/16 04:00 89 11/27/16 03:55 97.8 93 27 94/61 100 Non-Rebreather 15.0 100 11/27/16 03:00 93 27 94/61 100 Non-Rebreather 15.0 100 11/27/16 02:01 97.8 98 34 98/59 100 Non-Rebreather 15.0 100 11/27/16 01:00 98.5 98 30 100/60 100 Non-Rebreather 15.0 100 11/27/16 00:00 98.8 94 30 81/52 100 Non-Rebreather 15.0 100 11/27/16 00:00 101 11/26/16 23:00 98.5 100 30 92/62 100 Non-Rebreather 15.0 100 11/26/16 22:00 106 33 91/55 100 Ambu-Bag 15.0 100 11/26/16 21:25 97 Non-Rebreather 15.0 100 11/26/16 21:25 Non-Rebreather 15.0 100 11/26/16 21:23 106 16 Non-Rebreather 15.0 100 11/26/16 21:00 106 30 103/66 100 Ambu-Bag 15.0 100 11/26/16 20:00 106 33 100/50 100 Ambu-Bag 15.0 100 11/26/16 20:00 108 11/26/16 19:00 99.5 111 31 102/68 100 Non-Rebreather 15.0 100 11/26/16 18:00 110 31 100/83 100 Non-Rebreather 15.0 100 11/26/16 17:00 101.5 110 31 92/61 100 Non-Rebreather 15.0 100 11/26/16 16:00 98.0 110 32 96/63 100 Non-Rebreather 15.0 100 11/26/16 16:00 112 11/26/16 15:00 113 33 121/98 99 Non-Rebreather 15.0 100 11/26/16 14:00 115 33 118/99 99 Non-Rebreather 15.0 100 11/26/16 13:00 116 33 117/90 99 Non-Rebreather 15.0 100 11/26/16 12:16 112 11/26/16 12:00 99.8 116 33 117/90 99 Non-Rebreather 15.0 100 11/26/16 11:35 97.1 116 22 143/61 93 Nasal Cannula 3.0 11/26/16 09:58 117 116/74 11/26/16 08:01 96.3 117 20 116/74 98 Nasal Cannula 3.0 11/26/16 08:00 120 Intake and Output 11/26/16 11/27/16 19:00 07:00 Intake Total 662.5 ml 625.0 ml Output Total 230 ml 570 ml Balance 432.5 ml 55.0 ml Intake IV Total 662.5 ml 625.0 ml Output Urine Total 230 ml 320 ml Gastric Drainage Total 250 ml # Bowel Movements 1 Laboratory Tests 11/26/16 15:00: Arterial Blood pH 7.421, Arterial Blood Partial Pressure CO2 38.1, Arterial Blood Partial Pressure O2 88.5, Arterial Blood HCO3 24.2, Arterial Blood Oxygen Saturation 96.6, Arterial Blood Base Excess 0, Carlos Test Positive 11/26/16 20:00: Prothrombin Time 21.9H, Prothromb Time International Ratio 2.1H, Total Creatine Kinase 132 Height (Feet): 5 Height (Inches): 7.00 Weight (Pounds): 221 General Appearance: lethargic EENT: pale conjunctivae Neck: normal alignment Cardiovascular: normal rate Respiratory/Chest: decreased breath sounds Abdomen: normal bowel sounds Edema: 1+ Arm (L), 1+ Arm (R), 1+ Leg (L), 1+ Leg (R), 1+ Pedal (L), 1+ Pedal ( R), 1+ Generalized Objective Current Medications Medications (Trade) Dose Ordered Sig/Jamaal Route PRN Reason Start Time Stop Time Status Last Admin Dose Admin Acetaminophen (Tylenol) 650 mg Q4H PRN ORAL Fever 11/25/16 23:15 12/25/16 23:14 Albuterol/ Ipratropium (DuoNeb 0.5-3(2.5)mg/3ml) 3 ml Q4H PRN HHN Shortness of Breath 11/25/16 23:15 11/30/16 23:14 Amlodipine Besylate (Norvasc) 5 mg BID GT 11/26/16 09:00 12/26/16 08:59 11/26/16 09:58 Clonidine HCl (Catapres) 0.1 mg Q8H PRN GT sbp> 160 11/26/16 07:15 12/26/16 07:14 Dextrose (Dextrose 50%) STAT PRN IV Hypoglycemia 11/26/16 00:00 12/26/16 00:00 Doxazosin Mesylate (Cardura) 1 mg QHS GT 11/26/16 21:00 12/26/16 20:59 11/26/16 21:04 Insulin Aspart (NovoLOG) BEFORE MEALS AND HS SUBQ 11/26/16 06:30 12/26/16 06:29 11/27/16 05:37 Lorazepam (Ativan 2mg/ml 1ml) 2 mg Q2H PRN IV agitation 11/25/16 23:15 12/02/16 23:14 Morphine Sulfate (Morphine Sulfate) 4 mg Q4H PRN IVP Severe Pain (Pain Scale 7-10) 11/25/16 23:15 12/02/16 23:14 Nitroglycerin (Ntg) 0.4 mg Q5M PRN SL Prn Chest Pain 11/25/16 23:15 12/25/16 23:14 Ondansetron HCl (Zofran) 4 mg Q6H PRN IVP Nausea & Vomiting 11/25/16 23:15 4/11/17 23:14 Pantoprazole 40 mg 40 mg ACBREAKFAST IVP 11/27/16 06:30 12/27/16 06:29 11/27/16 05:34 Piperacillin Sod/ Tazobactam Sod/ Sodium Chloride (Zosyn/Sodium Chloride) 110 ml @ 27.5 mls/hr Q8H IVPB 11/27/16 04:00 12/04/16 03:59 11/27/16 04:00 Polyethylene Glycol (Miralax) 17 gm DAILYPRN PRN ORAL Constipation 11/25/16 23:15 12/25/16 23:14 Sodium Chloride (0.45% NS 1000ml) 1,000 ml @ 75 mls/hr [id number] IV 11/26/16 12:00 12/26/16 11:59 11/26/16 12:59 Tamsulosin HCl (Flomax) 0.4 mg BEDTIME ORAL 11/26/16 21:00 12/26/16 20:59 11/26/16 21:04 Tramadol HCl (Ultram) 50 mg BID PRN ORAL For Pain 11/25/16 23:15 12/02/16 23:14 Valproic Acid 500 mg 500 mg THREE TIMES A DAY GT 11/26/16 09:00 12/26/16 08:59 11/26/16 09:52 Vancomycin HCl 1 ea 1 ea DAILY PRN MISC Per rx protocol 11/25/16 23:15 12/25/16 23:14 Vancomycin HCl/ Sodium Chloride (Vancomycin/ Sodium Chloride) 325 ml @ 162.5 mls/ hr Q24H IVPB 11/26/16 22:00 12/01/16 21:59 11/26/16 22:36 Item Value Date Time Bedside Blood Glucose 205 mg/dl H 11/27/16 0537 Bedside Blood Glucose 282 mg/dl H 11/26/16 2112 Bedside Blood Glucose 310 mg/dl H 11/26/16 1731 Bedside Blood Glucose 345 mg/dl H 11/26/16 1330 SUZIE FELDER 14, 2017 06:07
[2016-11-27] MEDS ORDERED: Pantoprazole Inj IVP SCH (06:30)
[2016-11-27 08:04] LABS: MEAN CORPUSCULAR HGB CONC 31.3 G/DL (32.0-36.0); MEAN CORPUSCULAR VOLUME 99 FL (80-99); MEAN PLATELET VOLUME 9.1 FL (6.5-10.1); PLATELET COUNT 182 K/UL (150-450); RED BLOOD COUNT 3.79 M/UL (4.70-6.10); RED CELL DISTRIBUTION WIDTH 14.4 % (11.6-14.8); WHITE BLOOD COUNT 14.1 K/UL (4.8-10.8)
[2016-11-27 08:05] LABS: INR 1.2 (0.9-1.1); PROTHROMBIN TIME 12.6 SEC (9.30-11.50)
[2016-11-27 08:23] LABS: MAGNESIUM 2.9 mg/dL (1.7-2.5); PHOSPHORUS 4.5 mg/dL (2.5-4.8)
[2016-11-27 08:24] LABS: ALANINE AMINOTRANSFERASE 196 U/L (3-41); ALBUMIN/GLOBULIN RATIO 0.5 (1.0-2.7); AMYLASE 188 U/L (10-110); ANION GAP 15 (5-15); ASPARTATE AMINO TRANSFERASE 141 U/L (5-40); CALCIUM 8.3 mg/dL (8.6-10.2); CARBON DIOXIDE 28 mEQ/L (20-30); CHLORIDE 112 mEQ/L (98-107); CREATININE 2.8 mg/dL (0.7-1.2); HEMOLYSIS 3; LIPASE 173 U/L (< 60); POTASSIUM 4.2 mEQ/L (3.4-4.9); SODIUM 155 mEQ/L (135-145); TOTAL PROTEIN 6.6 g/dL (6.6-8.7)
[2016-11-27 08:37] LABS: BILIRUBIN,DIRECT 0.9 mg/dL (0.1-0.3)
[2016-11-27] MEDS: Valproic Acid 250mg/5ml Liquid GT SCH ×4 (08:46→18:04)
[2016-11-27] MEDS: Levemir Flexpen SUBQ SCH ×2 (08:55→21:25)
--- NOTE | 2016-11-27 09:18 | Consultation ---
DATE OF CONSULTATION: 11/26/2016 NOTE: VERY POOR INAUDIBLE AUDIO QUALITY HEMATOLOGY/ONCOLOGY CONSULTATION REFERRING PHYSICIAN: Aliza Faria M.D. REASON FOR CONSULTATION: Evaluation of coagulopathy. IDENTIFYING DATA: Dear Dr. Aliza Faria, The patient is a pleasant 76-year-old male who has been seen by Hematology service in the past. He has past medical history significant for dementia, history of CVA, history of PEG tube, choledocholithiasis, history of atrial fibrillation, history of DVT, has been on Coumadin, at this time presents to the [facility] with coffee-ground emesis, initially presented with sepsis and hyperglycemia to the ER, had a white count of 12,000. His chest x-ray showed potential aspiration. CT scan showed choledocholithiasis and cholelithiasis. Hematology service was consulted to evaluate the patient's INR, which is currently in the morning today at 8.2, PTT elevated . PAST MEDICAL HISTORY: As above. PAST SURGICAL HISTORY: PEG tube placement. MEDICATIONS: Amlodipine, , calcium chloride, , potassium chloride. Tamsulosin, Zosyn, vancomycin, , clonidine, tramadol, . ALLERGIES: No known drug allergies. SOCIAL HISTORY: No tobacco, alcohol or illicit drug use. Lives in SNF. REVIEW OF SYSTEMS: Difficult to obtain due to mental status changes. PHYSICAL EXAMINATION: GENERAL: The patient is in no distress. VITAL SIGNS: Blood pressure 143/61, pulse 116, respiratory 12, temperature 97.8 degrees Fahrenheit, and pulse oximetry 93% on 3 liters nasal cannula. PULMONARY: Decreased breath sounds. CARDIOVASCULAR: Regular rate. No S3 or S4. ABDOMEN: Soft, nontender and nondistended. EXTREMITIES: 1+ edema. LABORATORY AND DIAGNOSTIC DATA: INR is 8.2. BUN of 58, creatinine 1.5. ASSESSMENT: 1. Coagulopathy with pseudotherapeutic INR of , FFP, vitamin K. 2. Anemia. 3. Leukocytosis secondary to underlying infection with pancreatitis and elevated lipase. 4. Pancreatitis. 5. gastrointestinal bleed. 6. due to dysphagia. 7. Dementia. 8. Hyperglycemia. 9. Sepsis. RECOMMENDATIONS: 1. Monitor counts. 2. The patient is being treated for sepsis with antibiotics. 3. Appreciate Pulmonary and GI recommendations as well as surgical. 4. Hold off on Coumadin. 5. Repeat vitamin K tonight if INR is not improved. 6. . 7. Antibiotics as needed. 8. Discussed with staff. 9. The patient started on PPI. Thank you, Dr. Aliza Faria, for this kind referral. Please do not hesitate to contact me with any further questions. Abdifatah Ramirez M.D. DR: FLORES JOB#: [id number] CC:
--- NOTE | 2016-11-27 09:18 | Consultation ---
DATE OF CONSULTATION: 11/26/2016 CONSULTING PHYSICIAN: Ha Oliveira M.D. REFERRING PHYSICIAN: Aliza Faria M.D. REASON FOR CONSULTATION: Tachycardia in a patient who is septic. HISTORY OF PRESENT ILLNESS: The patient is a 76-year-old gentleman with a history of hypertension, dementia, CVA and hyperlipidemia as well as history of gastrostomy tube placement who was brought into emergency room from [facility] for hyperglycemia and fever. A CT scan in the ER showed marked pancreatitis and choledocholithiasis. INR was also supratherapeutic at 8 and was hyperglycemic. The patient also was having coffee-ground vomiting during suctioning. The patient was admitted to intensive care unit. PEG tube was connected to suction. At the time of my evaluation, the patient was nonverbal. He was not able to provide any information. The patient was also tachycardic with heart rate of 120s. The patient was never hypotensive except borderline blood pressure around 100. The patient did not need pressors. REVIEW OF SYSTEMS: Cannot be obtained. PAST MEDICAL HISTORY: 1. Hypertension. 2. Hyperlipidemia. 3. Dementia. 4. Status post PEG placement. 5. Seizure disorder. MEDICATIONS: Medications at [facility] include, 1. Norvasc 5 mg b.i.d. 2. Lipitor 20 mg daily. 3. Doxazosin. 4. Lasix. 5. Multivitamin. 6. Flomax. 7. Coumadin daily as the patient has history of paroxysmal atrial fibrillation. FAMILY HISTORY: Noncontributory. SOCIAL HISTORY: He lives in a [facility]. PHYSICAL EXAMINATION: VITAL SIGNS: Blood pressure is 142/61, pulse is 116 to 120, respirations 22, and temperature 97.1 degrees Fahrenheit. NECK: No JVD. LUNGS: Coarse rhonchi. CARDIOVASCULAR: Tachycardic. S1 and S2 with no gallop, rub, or murmur. ABDOMEN: Soft. Status post G-tube. EXTREMITIES: 1+ pitting edema. LABORATORY AND DIAGNOSTIC DATA: His EKG showed sinus tachycardia at a rate of [address]-T wave abnormality, left axis deviation, and old anterolateral inferior infarct. His labs show white count of 12.4, hemoglobin 15.5, hematocrit of 50, and platelet count is 243,000. Sodium 151, potassium 4.5, BUN of 86, creatinine of 1.5, and glucose of 359. His INR is 8.2. His lipase 1253. Ketone level was negative. ASSESSMENT AND PLAN: 1. Sinus tachycardia due to the patient's sepsis. Even though the patient has a history of atrial fibrillation, he continues to remain in sinus rhythm. 2. Paroxysmal atrial fibrillation. The patient was on Coumadin with supratherapeutic INR. Coumadin is on hold until the INR comes to therapeutic range. The patient is off of any AV teodora jacinto at this time. We will get an echocardiogram to evaluate for ejection fraction and wall motion abnormality. 3. Sepsis. The patient is on broad-spectrum antibiotic with vancomycin and Zosyn. 4. Status post percutaneous endoscopic gastrostomy placement. 5. Hypernatremia secondary to dehydration. 6. Coffee-ground emesis. Further evaluation per . 7. Pancreatitis. 8. It is of note that the patient had a history of esophagogastroduodenoscopy and percutaneous endoscopic gastrostomy placement on 03/02/2016. Thank you very much, Dr. Faria, for allowing me to participate in the care of this patient. Please do not hesitate to contact me for any questions regarding my evaluation. Ha Oliveira M.D. DR: TIKA JOB#: [id number] CC:
--- NOTE | 2016-11-27 10:02 | General Surgery Progress Note ---
General Surgery-Progress Note Subjective Reason for Consult obstructive jaundice, pancreatitis, cholelithiasis, abnormal coagulation from coumadin, resolved. Chief Complaint: not responsive Symptoms: improved Objective Last 24 Hour Vital Signs Date Time Temp Pulse Resp B/P Pulse Ox O2 Delivery O2 Flow Rate FiO2 11/27/16 09:00 89 30 100/64 100 Non-Rebreather 15.0 100 11/27/16 08:48 90 98/59 11/27/16 08:00 89 11/27/16 08:00 98.0 89 28 97/62 100 Non-Rebreather 15.0 100 11/27/16 07:11 100 Non-Rebreather 15.0 100 11/27/16 07:11 Non-Rebreather 15.0 100 11/27/16 07:11 89 16 Non-Rebreather 15.0 100 11/27/16 07:06 92 28 107/63 100 Non-Rebreather 15.0 100 11/27/16 06:00 86 30 100/58 100 Non-Rebreather 15.0 100 11/27/16 05:01 97 28 89/60 100 Non-Rebreather 15.0 100 11/27/16 04:00 89 11/27/16 03:55 97.8 93 27 94/61 100 Non-Rebreather 15.0 100 11/27/16 03:00 93 27 94/61 100 Non-Rebreather 15.0 100 11/27/16 02:01 97.8 98 34 98/59 100 Non-Rebreather 15.0 100 11/27/16 01:00 98.5 98 30 100/60 100 Non-Rebreather 15.0 100 11/27/16 00:00 98.8 94 30 81/52 100 Non-Rebreather 15.0 100 11/27/16 00:00 101 11/26/16 23:00 98.5 100 30 92/62 100 Non-Rebreather 15.0 100 11/26/16 22:00 106 33 91/55 100 Ambu-Bag 15.0 100 11/26/16 21:25 97 Non-Rebreather 15.0 100 11/26/16 21:25 Non-Rebreather 15.0 100 11/26/16 21:23 106 16 Non-Rebreather 15.0 100 11/26/16 21:00 106 30 103/66 100 Ambu-Bag 15.0 100 11/26/16 20:00 106 33 100/50 100 Ambu-Bag 15.0 100 11/26/16 20:00 108 11/26/16 19:00 99.5 111 31 102/68 100 Non-Rebreather 15.0 100 11/26/16 18:00 110 31 100/83 100 Non-Rebreather 15.0 100 11/26/16 17:00 101.5 110 31 92/61 100 Non-Rebreather 15.0 100 11/26/16 16:00 98.0 110 32 96/63 100 Non-Rebreather 15.0 100 11/26/16 16:00 112 11/26/16 15:00 113 33 121/98 99 Non-Rebreather 15.0 100 11/26/16 14:00 115 33 118/99 99 Non-Rebreather 15.0 100 11/26/16 13:00 116 33 117/90 99 Non-Rebreather 15.0 100 11/26/16 12:16 112 11/26/16 12:00 99.8 116 33 117/90 99 Non-Rebreather 15.0 100 11/26/16 11:35 97.1 116 22 143/61 93 Nasal Cannula 3.0 11/26/16 09:58 117 116/74 I&O Intake and Output 11/26/16 11/27/16 19:00 07:00 Intake Total 662.5 ml 1630.5 ml Output Total 230 ml 660 ml Balance 432.5 ml 970.5 ml Intake IV Total 662.5 ml 1027.5 ml Blood Product 603 ml Output Urine Total 230 ml 360 ml Gastric Drainage Total 300 ml # Bowel Movements 1 Cardiovascular: RSR Respiratory: clear Abdomen: soft, distended, other - no masses Extremities: edema - 1+ Laboratory Tests Test 11/26/16 15:00 11/26/16 20:00 11/27/16 07:00 Arterial Blood pH 7.421 (7.350-7.450) Arterial Blood Partial Pressure CO2 38.1 mmHg (35.0-45.0) Arterial Blood Partial Pressure O2 88.5 mmHg (75.0-100.0) Arterial Blood HCO3 24.2 mmol/L (22.0-26.0) Arterial Blood Oxygen Saturation 96.6 % (92.0-98.0) Arterial Blood Base Excess 0 Carlos Test Positive Prothrombin Time 21.9 SEC (9.30-11.50) H 12.6 SEC (9.30-11.50) H Prothromb Time International Ratio 2.1 (0.9-1.1) H 1.2 (0.9-1.1) H Total Creatine Kinase 132 U/L (38-174) 110 U/L (38-174) White Blood Count 14.1 K/UL (4.8-10.8) H Red Blood Count 3.79 M/UL (4.70-6.10) L Hemoglobin 11.7 G/DL (14.2-18.0) L Hematocrit 37.5 % (42.0-52.0) L Mean Corpuscular Volume 99 FL (80-99) Mean Corpuscular Hemoglobin 31.0 PG (27.0-31.0) Mean Corpuscular Hemoglobin Concent 31.3 G/DL (32.0-36.0) L Red Cell Distribution Width 14.4 % (11.6-14.8) Platelet Count 182 K/UL (150-450) Mean Platelet Volume 9.1 FL (6.5-10.1) Neutrophils (%) (Auto) % (45.0-75.0) Lymphocytes (%) (Auto) % (20.0-45.0) Monocytes (%) (Auto) % (1.0-10.0) Eosinophils (%) (Auto) % (0.0-3.0) Basophils (%) (Auto) % (0.0-2.0) Neutrophils % (Manual) Pending Lymphocytes % (Manual) Pending Platelet Estimate Pending Platelet Morphology Pending Activated Partial Thromboplast Time 36 SEC (23-33) H Sodium Level 155 mEQ/L (135-145) H Potassium Level 4.2 mEQ/L (3.4-4.9) Chloride Level 112 mEQ/L (98-107) H Carbon Dioxide Level 28 mEQ/L (20-30) Anion Gap 15 (5-15) Blood Urea Nitrogen 84 mg/dL (7-23) #H Creatinine 2.8 mg/dL (0.7-1.2) #H Estimat Glomerular Filtration Rate mL/min (>60) Glucose Level 207 mg/dL (74-106) #H Calcium Level 8.3 mg/dL (8.6-10.2) L Phosphorus Level 4.5 mg/dL (2.5-4.8) Magnesium Level 2.9 mg/dL (1.7-2.5) H Total Bilirubin 1.5 mg/dL (0.0-1.2) H Direct Bilirubin 0.9 mg/dL (0.1-0.3) H Aspartate Amino Transf (AST/SGOT) 141 U/L (5-40) H Alanine Aminotransferase (ALT/SGPT) 196 U/L (3-41) H Alkaline Phosphatase 235 U/L (40-129) H Pro-B-Type Natriuretic Peptide 946 pg/mL (0-450) H Total Protein 6.6 g/dL (6.6-8.7) Albumin 2.4 g/dL (3.5-5.2) L Globulin 4.2 g/dL Albumin/Globulin Ratio 0.5 (1.0-2.7) L Amylase Level 188 U/L (10-110) H Lipase 173 U/L (< 60) H Free Thyroxine 1.22 ng/dL (0.86-1.85) Imaging CT abdomen: pancreatitis, duodenal inflammation, CBD dilatation, gallstones, Additional Comments Patients LFT's better, amylase and lipase both normalizing Severe pancreatitis likely from passed gallstone, no evidence of persistent stone in CBD. Azotemia worsening, Sepsis resolving, but WBC still high. Assessment Additional Comments Cont as is. Once better, MRCP, possible ERCP. No surgery planned at this time. AUSTIN GAVIRIA Nov 27, 2016 10:02
[2016-11-27] MEDS ORDERED: Tubing Blood Filter IV ONE (10:50)
[2016-11-27] MEDS ORDERED: NS 275ml ONE (10:50)
[2016-11-27] MEDS ORDERED: 1/2 NS 1000ml IV ONE (10:50)
[2016-11-27] MEDS ORDERED: Tubing IV Secondary IV ONE (10:50)
--- NOTE | 2016-11-27 12:05 | Diagnostic Imaging Report ---
Indication: DYSPNEA Technique: One view of the chest Comparison: 11/25/2016 Findings: Again demonstrated is bibasilar atelectasis and left retrocardiac consolidation, overall appearing similar the previous study. The heart remains mildly enlarged. Impression: Unchanged, over 2 days, findings as above.
--- NOTE | 2016-11-27 12:10 | General Progress Note ---
Assessment/Plan Problem List: (1) Hyperglycemia ICD Codes: R73.9 - Hyperglycemia, unspecified SNOMED: 18825485 (2) FABIOLA (acute kidney injury) ICD Codes: N17.9 - Acute kidney failure, unspecified SNOMED: 61242262 (3) Choledocholithiasis ICD Codes: K80.50 - Calculus of bile duct without cholangitis or cholecystitis without obstruction SNOMED: 034809232 (4) Pressure ulcer ICD Codes: L89.90 - Pressure ulcer SNOMED: 969693949 (5) Fever ICD Codes: R50.9 - Fever SNOMED: 741929944 (6) Anemia ICD Codes: D64.9 - Anemia SNOMED: 432081756 (7) Cellulitis ICD Codes: L03.90 - Cellulitis SNOMED: 961044095 (8) Seizure disorder ICD Codes: G40.909 - Seizure disorder SNOMED: 777441853 (9) Sepsis ICD Codes: A41.9 - Sepsis, unspecified organism SNOMED: 04266279 Qualifiers: Qualified Codes: A41.9 - Sepsis, unspecified organism (10) Venous stasis ulcers ICD Codes: I83.009 - Venous stasis ulcers SNOMED: 843933698 (11) Bilateral lower extremity edema (12) Dementia ICD Codes: F03.90 - Unspecified dementia without behavioral disturbance SNOMED: 59592775 Qualifiers: Qualified Codes: F01.50 - Vascular dementia without behavioral disturbance (13) Coffee ground vomiting ICD Codes: K92.0 - Hematemesis SNOMED: 38673737 (14) Leukocytosis ICD Codes: D72.829 - Elevated white blood cell count, unspecified SNOMED: 757842464, 537777718 (15) UTI (urinary tract infection) ICD Codes: N39.0 - Urinary tract infection, site not specified SNOMED: 30084227 Status: progressing Assessment/Plan hyperglycemia is improving sepsis pna resp insuff lyte abnormaily a fib on coumadin gi bleed coffee ground emesis Subjective ROS Limited/Unobtainable: Yes Constitutional: Reports: no symptoms Allergies: Coded Allergies: No Known Allergies (Verified , 12/27/08) Objective Last 24 Hour Vital Signs Date Time Temp Pulse Resp B/P Pulse Ox O2 Delivery O2 Flow Rate FiO2 11/27/16 10:00 56 30 96/51 100 Non-Rebreather 15.0 100 11/27/16 09:00 89 30 100/64 100 Non-Rebreather 15.0 100 11/27/16 08:48 90 98/59 11/27/16 08:00 89 11/27/16 08:00 98.0 89 28 97/62 100 Non-Rebreather 15.0 100 11/27/16 07:11 100 Non-Rebreather 15.0 100 11/27/16 07:11 Non-Rebreather 15.0 100 11/27/16 07:11 89 16 Non-Rebreather 15.0 100 11/27/16 07:06 92 28 107/63 100 Non-Rebreather 15.0 100 11/27/16 06:00 86 30 100/58 100 Non-Rebreather 15.0 100 11/27/16 05:01 97 28 89/60 100 Non-Rebreather 15.0 100 11/27/16 04:00 89 11/27/16 03:55 97.8 93 27 94/61 100 Non-Rebreather 15.0 100 11/27/16 03:00 93 27 94/61 100 Non-Rebreather 15.0 100 11/27/16 02:01 97.8 98 34 98/59 100 Non-Rebreather 15.0 100 11/27/16 01:00 98.5 98 30 100/60 100 Non-Rebreather 15.0 100 11/27/16 00:00 98.8 94 30 81/52 100 Non-Rebreather 15.0 100 11/27/16 00:00 101 11/26/16 23:00 98.5 100 30 92/62 100 Non-Rebreather 15.0 100 11/26/16 22:00 106 33 91/55 100 Ambu-Bag 15.0 100 11/26/16 21:25 97 Non-Rebreather 15.0 100 11/26/16 21:25 Non-Rebreather 15.0 100 11/26/16 21:23 106 16 Non-Rebreather 15.0 100 11/26/16 21:00 106 30 103/66 100 Ambu-Bag 15.0 100 11/26/16 20:00 106 33 100/50 100 Ambu-Bag 15.0 100 11/26/16 20:00 108 11/26/16 19:00 99.5 111 31 102/68 100 Non-Rebreather 15.0 100 11/26/16 18:00 110 31 100/83 100 Non-Rebreather 15.0 100 11/26/16 17:00 101.5 110 31 92/61 100 Non-Rebreather 15.0 100 11/26/16 16:00 98.0 110 32 96/63 100 Non-Rebreather 15.0 100 11/26/16 16:00 112 11/26/16 15:00 113 33 121/98 99 Non-Rebreather 15.0 100 11/26/16 14:00 115 33 118/99 99 Non-Rebreather 15.0 100 11/26/16 13:00 116 33 117/90 99 Non-Rebreather 15.0 100 11/26/16 12:16 112 Intake and Output 11/26/16 11/27/16 19:00 07:00 Intake Total 662.5 ml 1630.5 ml Output Total 230 ml 660 ml Balance 432.5 ml 970.5 ml Intake IV Total 662.5 ml 1027.5 ml Blood Product 603 ml Output Urine Total 230 ml 360 ml Gastric Drainage Total 300 ml # Bowel Movements 1 Laboratory Tests 11/26/16 15:00: Arterial Blood pH 7.421, Arterial Blood Partial Pressure CO2 38.1, Arterial Blood Partial Pressure O2 88.5, Arterial Blood HCO3 24.2, Arterial Blood Oxygen Saturation 96.6, Arterial Blood Base Excess 0, Carlos Test Positive 11/26/16 20:00: Prothrombin Time 21.9H, Prothromb Time International Ratio 2.1H, Total Creatine Kinase 132 11/27/16 07:00: Prothrombin Time 12.6H, Prothromb Time International Ratio 1.2H, Total Creatine Kinase 110, White Blood Count 14.1H, Red Blood Count 3.79L, Hemoglobin 11.7L, Hematocrit 37.5L, Mean Corpuscular Volume 99, Mean Corpuscular Hemoglobin 31.0, Mean Corpuscular Hemoglobin Concent 31.3L, Red Cell Distribution Width 14.4, Platelet Count 182, Mean Platelet Volume 9.1, Neutrophils (%) (Auto) , Lymphocytes (%) (Auto) , Monocytes (%) (Auto) , Eosinophils (%) (Auto) , Basophils (%) (Auto) , Neutrophils % (Manual) [Pending], Lymphocytes % (Manual) [Pending], Platelet Estimate [Pending], Platelet Morphology [Pending], Activated Partial Thromboplast Time 36H, Sodium Level 155H, Potassium Level 4.2 , Chloride Level 112H, Carbon Dioxide Level 28, Anion Gap 15, Blood Urea Nitrogen 84#H, Creatinine 2.8#H, Estimat Glomerular Filtration Rate , Glucose Level 207#H, Calcium Level 8.3L, Phosphorus Level 4.5, Magnesium Level 2.9H, Total Bilirubin 1.5H, Direct Bilirubin 0.9H, Aspartate Amino Transf (AST/SGOT) 141H, Alanine Aminotransferase (ALT/SGPT) 196H, Alkaline Phosphatase 235H, Pro-B -Type Natriuretic Peptide 946H, Total Protein 6.6, Albumin 2.4L, Globulin 4.2, Albumin/Globulin Ratio 0.5L, Amylase Level 188H, Lipase 173H, Free Thyroxine 1.22 Height (Feet): 5 Height (Inches): 7.00 Weight (Pounds): 221 EENT: PERRL/EOMI Neck: supple Cardiovascular: normal rate Respiratory/Chest: lungs clear Aliza Faria MD Nov 27, 2016 12:10
[2016-11-27 12:50] LABS: BAND NEUTROPHILS % (MANUAL) 4 % (0-8); LYMPHOCYTES % (MANUAL) 5 % (20-45); NEUTROPHILS % (MANUAL) 89 % (45-75); TOTAL CELLS COUNTED 100
--- NOTE | 2016-11-27 12:50 | Pulmonolgy Critical Care Note ---
Critical Care - Asmt/Plan Problems: (1) HCAP (healthcare-associated pneumonia) (2) UTI (urinary tract infection) (3) Coffee ground vomiting (4) Acute pancreatitis (5) Feeding by G-tube (6) Sepsis Respiratory: monitor respiratory rate, adjust FIO2, CXR Cardiac: continue to monitor HR/BP Renal: F/U I&O, keep IV fluid, check electrolytes Infectious Disease: check cultures, continue antibiotics, other - afebrile now Gastrointestinal: hold feedings Endocrine: monitor blood sugar Hematologic: monitor H/H, transfuse if hgb<8.5 Neurologic: PRN Ativan, PRN Morphine, keep patient comfortable Prophylaxis: SCDs Disposition: keep in ICU Notes Reviewed: correctional supervising cook, cardio, renal Discussed with: nurses, consultants, shoe casermanager solution - Objective Last 24 Hour Vital Signs Date Time Temp Pulse Resp B/P Pulse Ox O2 Delivery O2 Flow Rate FiO2 11/27/16 10:00 56 30 96/51 100 Non-Rebreather 15.0 100 11/27/16 09:00 89 30 100/64 100 Non-Rebreather 15.0 100 11/27/16 08:48 90 98/59 11/27/16 08:00 89 11/27/16 08:00 98.0 89 28 97/62 100 Non-Rebreather 15.0 100 11/27/16 07:11 100 Non-Rebreather 15.0 100 11/27/16 07:11 Non-Rebreather 15.0 100 11/27/16 07:11 89 16 Non-Rebreather 15.0 100 11/27/16 07:06 92 28 107/63 100 Non-Rebreather 15.0 100 11/27/16 06:00 86 30 100/58 100 Non-Rebreather 15.0 100 11/27/16 05:01 97 28 89/60 100 Non-Rebreather 15.0 100 11/27/16 04:00 89 11/27/16 03:55 97.8 93 27 94/61 100 Non-Rebreather 15.0 100 11/27/16 03:00 93 27 94/61 100 Non-Rebreather 15.0 100 11/27/16 02:01 97.8 98 34 98/59 100 Non-Rebreather 15.0 100 11/27/16 01:00 98.5 98 30 100/60 100 Non-Rebreather 15.0 100 11/27/16 00:00 98.8 94 30 81/52 100 Non-Rebreather 15.0 100 11/27/16 00:00 101 11/26/16 23:00 98.5 100 30 92/62 100 Non-Rebreather 15.0 100 11/26/16 22:00 106 33 91/55 100 Ambu-Bag 15.0 100 11/26/16 21:25 97 Non-Rebreather 15.0 100 11/26/16 21:25 Non-Rebreather 15.0 100 11/26/16 21:23 106 16 Non-Rebreather 15.0 100 11/26/16 21:00 106 30 103/66 100 Ambu-Bag 15.0 100 11/26/16 20:00 106 33 100/50 100 Ambu-Bag 15.0 100 11/26/16 20:00 108 11/26/16 19:00 99.5 111 31 102/68 100 Non-Rebreather 15.0 100 11/26/16 18:00 110 31 100/83 100 Non-Rebreather 15.0 100 11/26/16 17:00 101.5 110 31 92/61 100 Non-Rebreather 15.0 100 11/26/16 16:00 98.0 110 32 96/63 100 Non-Rebreather 15.0 100 11/26/16 16:00 112 11/26/16 15:00 113 33 121/98 99 Non-Rebreather 15.0 100 11/26/16 14:00 115 33 118/99 99 Non-Rebreather 15.0 100 11/26/16 13:00 116 33 117/90 99 Non-Rebreather 15.0 100 Status: somnolent Condition: critical HEENT: atraumatic, normocephalic Lungs: clear Heart: HR/BP stable Abdomen: soft, non-tender Extremities: no C/C/E Micro: Microbiology Date/Time Source Procedure Growth Status 11/25/16 21:45 Blood Blood Culture - Preliminary Gram Negative Bacillus 1 Resulted 11/25/16 21:39 Blood Blood Culture - Preliminary Resulted Accucheck: 165 Critical Care - Subjective ROS Limited/Unobtainable: Yes ICU Day: 2 Intubation Day: 2 Condition: critical EKG Rhythm: Sinus Rhythm FI02: 100 Sputum Amount: None Fluids: /2 NS 75 cc/hour I&O: Intake and Output 11/26/16 11/27/16 19:00 07:00 Intake Total 662.5 ml 1630.5 ml Output Total 230 ml 660 ml Balance 432.5 ml 970.5 ml Intake IV Total 662.5 ml 1027.5 ml Blood Product 603 ml Output Urine Total 230 ml 360 ml Gastric Drainage Total 300 ml # Bowel Movements 1 CXR: no change Labs: Laboratory Tests Test 11/26/16 15:00 11/26/16 20:00 11/27/16 07:00 Arterial Blood pH 7.421 (7.350-7.450) Arterial Blood Partial Pressure CO2 38.1 mmHg (35.0-45.0) Arterial Blood Partial Pressure O2 88.5 mmHg (75.0-100.0) Arterial Blood HCO3 24.2 mmol/L (22.0-26.0) Arterial Blood Oxygen Saturation 96.6 % (92.0-98.0) Arterial Blood Base Excess 0 Carlos Test Positive Prothrombin Time 21.9 SEC (9.30-11.50) H 12.6 SEC (9.30-11.50) H Prothromb Time International Ratio 2.1 (0.9-1.1) H 1.2 (0.9-1.1) H Total Creatine Kinase 132 U/L (38-174) 110 U/L (38-174) White Blood Count 14.1 K/UL (4.8-10.8) H Red Blood Count 3.79 M/UL (4.70-6.10) L Hemoglobin 11.7 G/DL (14.2-18.0) L Hematocrit 37.5 % (42.0-52.0) L Mean Corpuscular Volume 99 FL (80-99) Mean Corpuscular Hemoglobin 31.0 PG (27.0-31.0) Mean Corpuscular Hemoglobin Concent 31.3 G/DL (32.0-36.0) L Red Cell Distribution Width 14.4 % (11.6-14.8) Platelet Count 182 K/UL (150-450) Mean Platelet Volume 9.1 FL (6.5-10.1) Neutrophils (%) (Auto) % (45.0-75.0) Lymphocytes (%) (Auto) % (20.0-45.0) Monocytes (%) (Auto) % (1.0-10.0) Eosinophils (%) (Auto) % (0.0-3.0) Basophils (%) (Auto) % (0.0-2.0) Neutrophils % (Manual) Pending Lymphocytes % (Manual) Pending Platelet Estimate Pending Platelet Morphology Pending Activated Partial Thromboplast Time 36 SEC (23-33) H Sodium Level 155 mEQ/L (135-145) H Potassium Level 4.2 mEQ/L (3.4-4.9) Chloride Level 112 mEQ/L (98-107) H Carbon Dioxide Level 28 mEQ/L (20-30) Anion Gap 15 (5-15) Blood Urea Nitrogen 84 mg/dL (7-23) #H Creatinine 2.8 mg/dL (0.7-1.2) #H Estimat Glomerular Filtration Rate mL/min (>60) Glucose Level 207 mg/dL (74-106) #H Calcium Level 8.3 mg/dL (8.6-10.2) L Phosphorus Level 4.5 mg/dL (2.5-4.8) Magnesium Level 2.9 mg/dL (1.7-2.5) H Total Bilirubin 1.5 mg/dL (0.0-1.2) H Direct Bilirubin 0.9 mg/dL (0.1-0.3) H Aspartate Amino Transf (AST/SGOT) 141 U/L (5-40) H Alanine Aminotransferase (ALT/SGPT) 196 U/L (3-41) H Alkaline Phosphatase 235 U/L (40-129) H Pro-B-Type Natriuretic Peptide 946 pg/mL (0-450) H Total Protein 6.6 g/dL (6.6-8.7) Albumin 2.4 g/dL (3.5-5.2) L Globulin 4.2 g/dL Albumin/Globulin Ratio 0.5 (1.0-2.7) L Amylase Level 188 U/L (10-110) H Lipase 173 U/L (< 60) H Free Thyroxine 1.22 ng/dL (0.86-1.85) SONIA ALBERTS Nov 27, 2016 12:50
[2016-11-27 12:51] LABS: BASOPHILS % (MANUAL) 0 % (0-2); EOSINOPHILS % (MANUAL) 0 % (0-3); HYPOCHROMASIA 1+; PLATELET ESTIMATE ADEQUATE; PLATELET MORPHOLOGY NORMAL
--- NOTE | 2016-11-27 15:28 | Consultation ---
Consult Note Consult Note asked to eval at the request of Dr Romero Patient have worsening renal function and rising serum Cr 76 YOM sent by PMD from SNF for hyperglycemia, concern for sepsis. Per EMS, patient's baseline is alert and oriented x0. No acute worsening noted by SNF staff. Vitals otherwise stable in the field. No other info from patient at this time. There are no family members present to provide additional info. Hx Cardiac Problems: Yes - A FIB Hx Hypertension: Yes Hx Gastrointestinal Problems: Yes - PEG Hx Neurological Problems: Yes - aphasia, dementia Hx Cerebrovascular Accident: Yes Hx Dementia: Yes Hx Seizures: Yes Hx Aphasia: Yes Hx Dysphasia: Yes Hx Weakness: Yes Patient in ICu- Examined- data reviewed- Discussed with educational psychologist/Plan Acute renal failure due to sepsis , low BP , GI bleed Sepsis Hyperglycemia Choledocholithiasis Aspiration into lower respiratory tract coagulopathy 2 to anticoagulation use hx of At fib hx of CVA seizure disorder pressure ulcer dysphagia, G tube HTN Plan: Hydrate- Avoid Nephrotoxics Monitor renal parameters and H&h Urine studies stop Norvasc and cardura for low bp Per orders ALONDRA FULTON Nov 27, 2016 15:28
--- NOTE | 2016-11-27 15:57 | Infectious Diseases Prog Note ---
Assessment/Plan Problems: (1) HCAP (healthcare-associated pneumonia) Assessment & Plan: with B/L basilar infiltrates , continue vancomycin and zosyn , monitor CXR, send sputum for culture, pulmonary is following (2) UTI (urinary tract infection) Assessment & Plan: already on Zosyn , await culture (3) Sepsis Assessment & Plan: with gram negative rods , due to CBD obstruction , and most likely GI emmanuel, , will add levaquin for gram negative double coverage , and continue vancomycin and zosyn, blood culture is pending, needs source control to for CBD obstruction with possible ERCP. (4) Choledocholithiasis Assessment & Plan: possible ascending cholangitis ,continue zosyn and vancomycin , will add levaquin for double coverage , recommend MRCP for further evaluation , and ERCP for source control, GI is following (5) FABIOLA (acute kidney injury) Assessment & Plan: due to sepsis, continue hydration, avoid nephrotoxic meds (6) Hyperglycemia Assessment & Plan: due to pancreatitis , continue insulin , and titrate to keep glucose level between 80-120 (7) Coagulopathy Assessment & Plan: due to coumadin, on hold, tranfuse FFP to revers INR, cardiology is following (8) Acute pancreatitis Assessment & Plan: complicated with intraabdominal phlegmon , will continue wide spectrum antibiotics therapy, may need ERCP for source control to relief CBD if really obstructed. (9) Coffee ground vomiting Assessment & Plan: due to coagulopathy, from coumadin, improving , monitor H/H ,transfuse blood as needed . GI and hematology are following (10) Common bile duct (CBD) obstruction Assessment & Plan: recommend MRCP for further evaluation and ERCP to remove the obstruction once hemodynamically stable. GI is following Subjective ROS Limited/Unobtainable: Yes Allergies: Coded Allergies: No Known Allergies (Verified , 12/27/08) Subjective he is on ventimask for high flow oxygen , nonverbal, not in distress Objective Vital Signs Last 24 Hour Vital Signs Date Time Temp Pulse Resp B/P Pulse Ox O2 Delivery O2 Flow Rate FiO2 11/27/16 15:00 99.2 94 28 107/58 100 Venturi Mask 14.0 55 11/27/16 14:00 92 27 106/61 100 Venturi Mask 14.0 55 11/27/16 13:00 92 28 107/58 100 Venturi Mask 14.0 55 11/27/16 13:00 93 28 98/58 100 Venturi Mask 14.0 55 11/27/16 12:00 90 11/27/16 12:00 99.6 92 30 90/56 100 Non-Rebreather 15.0 100 11/27/16 11:00 92 30 100/56 100 Non-Rebreather 15.0 100 11/27/16 10:00 56 30 96/51 100 Non-Rebreather 15.0 100 11/27/16 09:00 89 30 100/64 100 Non-Rebreather 15.0 100 11/27/16 08:48 90 98/59 11/27/16 08:00 90 11/27/16 08:00 98.0 89 28 97/62 100 Non-Rebreather 15.0 100 11/27/16 07:11 100 Non-Rebreather 15.0 100 11/27/16 07:11 Non-Rebreather 15.0 100 11/27/16 07:11 89 16 Non-Rebreather 15.0 100 11/27/16 07:06 92 28 107/63 100 Non-Rebreather 15.0 100 11/27/16 06:00 86 30 100/58 100 Non-Rebreather 15.0 100 11/27/16 05:01 97 28 89/60 100 Non-Rebreather 15.0 100 11/27/16 04:00 89 11/27/16 03:55 97.8 93 27 94/61 100 Non-Rebreather 15.0 100 11/27/16 03:00 93 27 94/61 100 Non-Rebreather 15.0 100 11/27/16 02:01 97.8 98 34 98/59 100 Non-Rebreather 15.0 100 11/27/16 01:00 98.5 98 30 100/60 100 Non-Rebreather 15.0 100 11/27/16 00:00 98.8 94 30 81/52 100 Non-Rebreather 15.0 100 11/27/16 00:00 101 11/26/16 23:00 98.5 100 30 92/62 100 Non-Rebreather 15.0 100 11/26/16 22:00 106 33 91/55 100 Ambu-Bag 15.0 100 11/26/16 21:25 97 Non-Rebreather 15.0 100 11/26/16 21:25 Non-Rebreather 15.0 100 11/26/16 21:23 106 16 Non-Rebreather 15.0 100 11/26/16 21:00 106 30 103/66 100 Ambu-Bag 15.0 100 11/26/16 20:00 106 33 100/50 100 Ambu-Bag 15.0 100 11/26/16 20:00 108 11/26/16 19:00 99.5 111 31 102/68 100 Non-Rebreather 15.0 100 11/26/16 18:00 110 31 100/83 100 Non-Rebreather 15.0 100 11/26/16 17:00 101.5 110 31 92/61 100 Non-Rebreather 15.0 100 11/26/16 16:00 98.0 110 32 96/63 100 Non-Rebreather 15.0 100 11/26/16 16:00 112 Height (Feet): 5 Height (Inches): 7.00 Weight (Pounds): 221 General Appearance: WD/WN, no acute distress HEENT: normocephalic, atraumatic, anicteric, mucous membranes moist Respiratory/Chest: chest wall non-tender, lungs clear, normal breath sounds, no respiratory distress Cardiovascular: normal peripheral pulses, normal rate, regular rhythm, no JVD Abdomen: no organomegaly, non distended, no mass, absent bowel sounds, distended Extremities: no cyanosis, no clubbing Skin: no rash, no lesions Microbiology Date/Time Source Procedure Growth Status 11/25/16 21:45 Blood Blood Culture - Preliminary Gram Negative Bacillus 1 Resulted 11/25/16 21:39 Blood Blood Culture - Preliminary Resulted Laboratory Tests Test 11/26/16 20:00 11/27/16 07:00 Prothrombin Time 21.9 SEC (9.30-11.50) H 12.6 SEC (9.30-11.50) H Prothromb Time International Ratio 2.1 (0.9-1.1) H 1.2 (0.9-1.1) H Total Creatine Kinase 132 U/L (38-174) 110 U/L (38-174) White Blood Count 14.1 K/UL (4.8-10.8) H Red Blood Count 3.79 M/UL (4.70-6.10) L Hemoglobin 11.7 G/DL (14.2-18.0) L Hematocrit 37.5 % (42.0-52.0) L Mean Corpuscular Volume 99 FL (80-99) Mean Corpuscular Hemoglobin 31.0 PG (27.0-31.0) Mean Corpuscular Hemoglobin Concent 31.3 G/DL (32.0-36.0) L Red Cell Distribution Width 14.4 % (11.6-14.8) Platelet Count 182 K/UL (150-450) Mean Platelet Volume 9.1 FL (6.5-10.1) Neutrophils (%) (Auto) % (45.0-75.0) Lymphocytes (%) (Auto) % (20.0-45.0) Monocytes (%) (Auto) % (1.0-10.0) Eosinophils (%) (Auto) % (0.0-3.0) Basophils (%) (Auto) % (0.0-2.0) Differential Total Cells Counted 100 Neutrophils % (Manual) 89 % (45-75) H Lymphocytes % (Manual) 5 % (20-45) L Monocytes % (Manual) 2 % (1-10) Eosinophils % (Manual) 0 % (0-3) Basophils % (Manual) 0 % (0-2) Band Neutrophils 4 % (0-8) Platelet Estimate Adequate Platelet Morphology Normal Hypochromasia 1+ Activated Partial Thromboplast Time 36 SEC (23-33) H Sodium Level 155 mEQ/L (135-145) H Potassium Level 4.2 mEQ/L (3.4-4.9) Chloride Level 112 mEQ/L (98-107) H Carbon Dioxide Level 28 mEQ/L (20-30) Anion Gap 15 (5-15) Blood Urea Nitrogen 84 mg/dL (7-23) #H Creatinine 2.8 mg/dL (0.7-1.2) #H Estimat Glomerular Filtration Rate mL/min (>60) Glucose Level 207 mg/dL (74-106) #H Calcium Level 8.3 mg/dL (8.6-10.2) L Phosphorus Level 4.5 mg/dL (2.5-4.8) Magnesium Level 2.9 mg/dL (1.7-2.5) H Total Bilirubin 1.5 mg/dL (0.0-1.2) H Direct Bilirubin 0.9 mg/dL (0.1-0.3) H Aspartate Amino Transf (AST/SGOT) 141 U/L (5-40) H Alanine Aminotransferase (ALT/SGPT) 196 U/L (3-41) H Alkaline Phosphatase 235 U/L (40-129) H Pro-B-Type Natriuretic Peptide 946 pg/mL (0-450) H Total Protein 6.6 g/dL (6.6-8.7) Albumin 2.4 g/dL (3.5-5.2) L Globulin 4.2 g/dL Albumin/Globulin Ratio 0.5 (1.0-2.7) L Amylase Level 188 U/L (10-110) H Lipase 173 U/L (< 60) H Free Thyroxine 1.22 ng/dL (0.86-1.85) Current Medications Medications (Trade) Dose Ordered Sig/Jamaal Route PRN Reason Start Time Stop Time Status Last Admin Dose Admin Acetaminophen (Tylenol) 650 mg Q4H PRN ORAL Fever 11/25/16 23:15 12/25/16 23:14 Albuterol/ Ipratropium (DuoNeb 0.5-3(2.5)mg/3ml) 3 ml Q4H PRN HHN Shortness of Breath 11/25/16 23:15 11/30/16 23:14 Clonidine HCl (Catapres) 0.1 mg Q8H PRN GT sbp> 160 11/26/16 07:15 12/26/16 07:14 Dextrose STAT PRN IV Hypoglycemia 11/27/16 06:15 12/27/16 06:14 Insulin Aspart (NovoLOG) BEFORE MEALS AND HS SUBQ 11/26/16 06:30 12/26/16 06:29 11/27/16 12:11 Insulin Detemir (Levemir) 8 units Q12HR SUBQ 11/27/16 09:00 12/27/16 08:59 11/27/16 08:55 Levofloxacin 100 ml @ 100 mls/hr ONCE ONCE IVPB 11/27/16 17:00 11/27/16 17:59 Levofloxacin (Levaquin) 50 ml @ 50 mls/hr Q48H IVPB 11/29/16 17:00 12/04/16 16:59 Lorazepam (Ativan 2mg/ml 1ml) 2 mg Q2H PRN IV agitation 11/25/16 23:15 12/02/16 23:14 Morphine Sulfate (Morphine Sulfate) 4 mg Q4H PRN IVP Severe Pain (Pain Scale 7-10) 11/25/16 23:15 12/02/16 23:14 Nitroglycerin (Ntg) 0.4 mg Q5M PRN SL Prn Chest Pain 11/25/16 23:15 12/25/16 23:14 Ondansetron HCl (Zofran) 4 mg Q6H PRN IVP Nausea & Vomiting 11/25/16 23:15 12/25/16 23:14 Pantoprazole (Protonix) 40 mg BID IVP 11/27/16 18:00 12/27/16 17:59 Piperacillin Sod/ Tazobactam Sod 3.375 gm/Sodium Chloride 110 ml @ 27.5 mls/hr Q12HR@0000,1200 IVPB 11/28/16 00:00 12/05/16 00:00 Piperacillin Sod/ Tazobactam Sod/ Sodium Chloride (Zosyn/Sodium Chloride) 110 ml @ 27.5 mls/hr Q8H IVPB 11/27/16 04:00 11/27/16 17:00 11/27/16 12:08 Polyethylene Glycol (Miralax) 17 gm DAILYPRN PRN ORAL Constipation 11/25/16 23:15 12/25/16 23:14 Sodium Chloride 1,000 ml @ 75 mls/hr [id number] IV 11/26/16 12:00 12/26/16 11:59 11/27/16 06:55 Tramadol HCl (Ultram) 50 mg BID PRN ORAL For Pain 11/25/16 23:15 12/02/16 23:14 Valproic Acid 500 mg 500 mg THREE TIMES A DAY GT 11/26/16 09:00 12/26/16 08:59 11/27/16 08:46 Vancomycin HCl (Vanco rx to dose) 1 ea DAILY PRN MISC Per rx protocol 11/25/16 23:15 12/25/16 23:14 Ariana Acevedo M.D. Nov 27, 2016 15:57
--- NOTE | 2016-11-27 15:57 | GI Progress Note ---
Assessment/Plan Problems: (1) Coffee ground vomiting ICD Codes: K92.0 - Hematemesis SNOMED: 37942875 (2) Acute pancreatitis ICD Codes: K85.90 - Acute pancreatitis without necrosis or infection, unspecified SNOMED: 139233091 Qualifiers: Qualified Codes: K85.10 - Biliary acute pancreatitis without necrosis or infection (3) Anemia ICD Codes: D64.9 - Anemia SNOMED: 704547894 (4) Choledocholithiasis ICD Codes: K80.50 - Calculus of bile duct without cholangitis or cholecystitis without obstruction SNOMED: 650995928 (5) Sepsis ICD Codes: A41.9 - Sepsis, unspecified organism SNOMED: 80394603 Qualifiers: Qualified Codes: A41.9 - Sepsis, unspecified organism (6) Gallstone pancreatitis ICD Codes: K85.10 - Biliary acute pancreatitis without necrosis or infection SNOMED: 22223015 Status: progressing, unchanged Status Narrative Discussed with Dr. Wilson. Assessment/Plan APCT reviewed >> Cholelithiasis. Dilated common bile duct. Etiology of this is uncertain raises concern for downstream obstruction by an occult stone. This also raises possibility that the above findings could be due to gallstone pancreatitis. INR = 8.2 >> now 1.2 fu surgical recs >> No surgery planned at this time. MRCP to evaluate CBD dilation/gallstone pancreatitis, will consider ERCP post results ppi BID monitor H&H, transfuse prn monitor LFTs >> downtrending hold GTFs, maintain NPO + IVFs repeat amylase/lipase fu labs Subjective Subjective limited Objective Last 24 Hour Vital Signs Date Time Temp Pulse Resp B/P Pulse Ox O2 Delivery O2 Flow Rate FiO2 11/27/16 15:00 99.2 94 28 107/58 100 Venturi Mask 14.0 55 11/27/16 14:00 92 27 106/61 100 Venturi Mask 14.0 55 11/27/16 13:00 92 28 107/58 100 Venturi Mask 14.0 55 11/27/16 13:00 93 28 98/58 100 Venturi Mask 14.0 55 11/27/16 12:00 90 11/27/16 12:00 99.6 92 30 90/56 100 Non-Rebreather 15.0 100 11/27/16 11:00 92 30 100/56 100 Non-Rebreather 15.0 100 11/27/16 10:00 56 30 96/51 100 Non-Rebreather 15.0 100 11/27/16 09:00 89 30 100/64 100 Non-Rebreather 15.0 100 11/27/16 08:48 90 98/59 11/27/16 08:00 90 11/27/16 08:00 98.0 89 28 97/62 100 Non-Rebreather 15.0 100 11/27/16 07:11 100 Non-Rebreather 15.0 100 11/27/16 07:11 Non-Rebreather 15.0 100 11/27/16 07:11 89 16 Non-Rebreather 15.0 100 11/27/16 07:06 92 28 107/63 100 Non-Rebreather 15.0 100 11/27/16 06:00 86 30 100/58 100 Non-Rebreather 15.0 100 11/27/16 05:01 97 28 89/60 100 Non-Rebreather 15.0 100 11/27/16 04:00 89 11/27/16 03:55 97.8 93 27 94/61 100 Non-Rebreather 15.0 100 11/27/16 03:00 93 27 94/61 100 Non-Rebreather 15.0 100 11/27/16 02:01 97.8 98 34 98/59 100 Non-Rebreather 15.0 100 11/27/16 01:00 98.5 98 30 100/60 100 Non-Rebreather 15.0 100 11/27/16 00:00 98.8 94 30 81/52 100 Non-Rebreather 15.0 100 11/27/16 00:00 101 11/26/16 23:00 98.5 100 30 92/62 100 Non-Rebreather 15.0 100 11/26/16 22:00 106 33 91/55 100 Ambu-Bag 15.0 100 11/26/16 21:25 97 Non-Rebreather 15.0 100 11/26/16 21:25 Non-Rebreather 15.0 100 11/26/16 21:23 106 16 Non-Rebreather 15.0 100 11/26/16 21:00 106 30 103/66 100 Ambu-Bag 15.0 100 11/26/16 20:00 106 33 100/50 100 Ambu-Bag 15.0 100 11/26/16 20:00 108 11/26/16 19:00 99.5 111 31 102/68 100 Non-Rebreather 15.0 100 11/26/16 18:00 110 31 100/83 100 Non-Rebreather 15.0 100 11/26/16 17:00 101.5 110 31 92/61 100 Non-Rebreather 15.0 100 11/26/16 16:00 98.0 110 32 96/63 100 Non-Rebreather 15.0 100 11/26/16 16:00 112 Intake and Output 11/26/16 11/27/16 19:00 07:00 Intake Total 662.5 ml 1630.5 ml Output Total 230 ml 660 ml Balance 432.5 ml 970.5 ml Intake IV Total 662.5 ml 1027.5 ml Blood Product 603 ml Output Urine Total 230 ml 360 ml Gastric Drainage Total 300 ml # Bowel Movements 1 Laboratory Tests Test 11/26/16 20:00 11/27/16 07:00 Prothrombin Time 21.9 SEC (9.30-11.50) H 12.6 SEC (9.30-11.50) H Prothromb Time International Ratio 2.1 (0.9-1.1) H 1.2 (0.9-1.1) H Total Creatine Kinase 132 U/L (38-174) 110 U/L (38-174) White Blood Count 14.1 K/UL (4.8-10.8) H Red Blood Count 3.79 M/UL (4.70-6.10) L Hemoglobin 11.7 G/DL (14.2-18.0) L Hematocrit 37.5 % (42.0-52.0) L Mean Corpuscular Volume 99 FL (80-99) Mean Corpuscular Hemoglobin 31.0 PG (27.0-31.0) Mean Corpuscular Hemoglobin Concent 31.3 G/DL (32.0-36.0) L Red Cell Distribution Width 14.4 % (11.6-14.8) Platelet Count 182 K/UL (150-450) Mean Platelet Volume 9.1 FL (6.5-10.1) Neutrophils (%) (Auto) % (45.0-75.0) Lymphocytes (%) (Auto) % (20.0-45.0) Monocytes (%) (Auto) % (1.0-10.0) Eosinophils (%) (Auto) % (0.0-3.0) Basophils (%) (Auto) % (0.0-2.0) Differential Total Cells Counted 100 Neutrophils % (Manual) 89 % (45-75) H Lymphocytes % (Manual) 5 % (20-45) L Monocytes % (Manual) 2 % (1-10) Eosinophils % (Manual) 0 % (0-3) Basophils % (Manual) 0 % (0-2) Band Neutrophils 4 % (0-8) Platelet Estimate Adequate Platelet Morphology Normal Hypochromasia 1+ Activated Partial Thromboplast Time 36 SEC (23-33) H Sodium Level 155 mEQ/L (135-145) H Potassium Level 4.2 mEQ/L (3.4-4.9) Chloride Level 112 mEQ/L (98-107) H Carbon Dioxide Level 28 mEQ/L (20-30) Anion Gap 15 (5-15) Blood Urea Nitrogen 84 mg/dL (7-23) #H Creatinine 2.8 mg/dL (0.7-1.2) #H Estimat Glomerular Filtration Rate mL/min (>60) Glucose Level 207 mg/dL (74-106) #H Calcium Level 8.3 mg/dL (8.6-10.2) L Phosphorus Level 4.5 mg/dL (2.5-4.8) Magnesium Level 2.9 mg/dL (1.7-2.5) H Total Bilirubin 1.5 mg/dL (0.0-1.2) H Direct Bilirubin 0.9 mg/dL (0.1-0.3) H Aspartate Amino Transf (AST/SGOT) 141 U/L (5-40) H Alanine Aminotransferase (ALT/SGPT) 196 U/L (3-41) H Alkaline Phosphatase 235 U/L (40-129) H Pro-B-Type Natriuretic Peptide 946 pg/mL (0-450) H Total Protein 6.6 g/dL (6.6-8.7) Albumin 2.4 g/dL (3.5-5.2) L Globulin 4.2 g/dL Albumin/Globulin Ratio 0.5 (1.0-2.7) L Amylase Level 188 U/L (10-110) H Lipase 173 U/L (< 60) H Free Thyroxine 1.22 ng/dL (0.86-1.85) Height (Feet): 5 Height (Inches): 7.00 Weight (Pounds): 221 General Appearance: obese Cardiovascular: normal rate Respiratory/Chest: other - venturi mask Abdominal Exam: soft Radha Ruiz N.P. Nov 27, 2016 15:57
--- NOTE | 2016-11-27 16:35 | General Progress Note ---
Assessment/Plan Assessment/Plan ASSESSMENT: 1. Coagulopathy with supertherapeutic - now improved 2. Anemia. 3. Leukocytosis secondary to underlying infection with pancreatitis and elevated lipase. 4. Pancreatitis. 5. r/o gastrointestinal bleed. 6. Dysphagia. 7. Dementia. 8. Hyperglycemia. 9. Sepsis. RECOMMENDATIONS: 1. Monitor counts. 2. Transfuse as needed 3. Anemia w/u if hgb <10 4. Hold off on Coumadin. 5. Consider inr 2-3 once coumadin restarted 6. Antibiotics as needed. 7. Discussed with staff. 8. The patient started on PPI. Thank you, Abdifatah Ramirez MD Subjective Constitutional: Reports: no symptoms HEENT: Reports: no symptoms Cardiovascular: Reports: no symptoms Respiratory: Reports: no symptoms Gastrointestinal/Abdominal: Reports: poor appetite Genitourinary: Reports: no symptoms Neurologic/Psychiatric: Reports: no symptoms Endocrine: Reports: no symptoms Hematologic/Lymphatic: Reports: anemia Allergies: Coded Allergies: No Known Allergies (Verified , 12/27/08) Subjective stable, no events reported Objective Last 24 Hour Vital Signs Date Time Temp Pulse Resp B/P Pulse Ox O2 Delivery O2 Flow Rate FiO2 11/27/16 15:00 99.2 94 28 107/58 100 Venturi Mask 14.0 55 11/27/16 14:00 92 27 106/61 100 Venturi Mask 14.0 55 11/27/16 13:00 92 28 107/58 100 Venturi Mask 14.0 55 11/27/16 13:00 93 28 98/58 100 Venturi Mask 14.0 55 11/27/16 12:00 90 11/27/16 12:00 99.6 92 30 90/56 100 Non-Rebreather 15.0 100 11/27/16 11:00 92 30 100/56 100 Non-Rebreather 15.0 100 11/27/16 10:00 56 30 96/51 100 Non-Rebreather 15.0 100 11/27/16 09:00 89 30 100/64 100 Non-Rebreather 15.0 100 11/27/16 08:48 90 98/59 11/27/16 08:00 90 11/27/16 08:00 98.0 89 28 97/62 100 Non-Rebreather 15.0 100 11/27/16 07:11 100 Non-Rebreather 15.0 100 11/27/16 07:11 Non-Rebreather 15.0 100 11/27/16 07:11 89 16 Non-Rebreather 15.0 100 11/27/16 07:06 92 28 107/63 100 Non-Rebreather 15.0 100 11/27/16 06:00 86 30 100/58 100 Non-Rebreather 15.0 100 11/27/16 05:01 97 28 89/60 100 Non-Rebreather 15.0 100 11/27/16 04:00 89 11/27/16 03:55 97.8 93 27 94/61 100 Non-Rebreather 15.0 100 11/27/16 03:00 93 27 94/61 100 Non-Rebreather 15.0 100 11/27/16 02:01 97.8 98 34 98/59 100 Non-Rebreather 15.0 100 11/27/16 01:00 98.5 98 30 100/60 100 Non-Rebreather 15.0 100 11/27/16 00:00 98.8 94 30 81/52 100 Non-Rebreather 15.0 100 11/27/16 00:00 101 11/26/16 23:00 98.5 100 30 92/62 100 Non-Rebreather 15.0 100 11/26/16 22:00 106 33 91/55 100 Ambu-Bag 15.0 100 11/26/16 21:25 97 Non-Rebreather 15.0 100 11/26/16 21:25 Non-Rebreather 15.0 100 11/26/16 21:23 106 16 Non-Rebreather 15.0 100 11/26/16 21:00 106 30 103/66 100 Ambu-Bag 15.0 100 11/26/16 20:00 106 33 100/50 100 Ambu-Bag 15.0 100 11/26/16 20:00 108 11/26/16 19:00 99.5 111 31 102/68 100 Non-Rebreather 15.0 100 11/26/16 18:00 110 31 100/83 100 Non-Rebreather 15.0 100 11/26/16 17:00 101.5 110 31 92/61 100 Non-Rebreather 15.0 100 Intake and Output 11/26/16 11/27/16 19:00 07:00 Intake Total 662.5 ml 1630.5 ml Output Total 230 ml 660 ml Balance 432.5 ml 970.5 ml Intake IV Total 662.5 ml 1027.5 ml Blood Product 603 ml Output Urine Total 230 ml 360 ml Gastric Drainage Total 300 ml # Bowel Movements 1 Laboratory Tests 11/26/16 20:00: Prothrombin Time 21.9H, Prothromb Time International Ratio 2.1H, Total Creatine Kinase 132 11/27/16 07:00: Prothrombin Time 12.6H, Prothromb Time International Ratio 1.2H, Total Creatine Kinase 110, White Blood Count 14.1H, Red Blood Count 3.79L, Hemoglobin 11.7L, Hematocrit 37.5L, Mean Corpuscular Volume 99, Mean Corpuscular Hemoglobin 31.0, Mean Corpuscular Hemoglobin Concent 31.3L, Red Cell Distribution Width 14.4, Platelet Count 182, Mean Platelet Volume 9.1, Neutrophils (%) (Auto) , Lymphocytes (%) (Auto) , Monocytes (%) (Auto) , Eosinophils (%) (Auto) , Basophils (%) (Auto) , Differential Total Cells Counted 100, Neutrophils % ( Manual) 89H, Lymphocytes % (Manual) 5L, Monocytes % (Manual) 2, Eosinophils % ( Manual) 0, Basophils % (Manual) 0, Band Neutrophils 4, Platelet Estimate Adequate, Platelet Morphology Normal, Hypochromasia 1+, Activated Partial Thromboplast Time 36H, Sodium Level 155H, Potassium Level 4.2, Chloride Level 112H, Carbon Dioxide Level 28, Anion Gap 15, Blood Urea Nitrogen 84#H, Creatinine 2.8#H, Estimat Glomerular Filtration Rate , Glucose Level 207#H, Calcium Level 8.3L, Phosphorus Level 4.5, Magnesium Level 2.9H, Total Bilirubin 1.5H, Direct Bilirubin 0.9H, Aspartate Amino Transf (AST/SGOT) 141H, Alanine Aminotransferase (ALT/SGPT) 196H, Alkaline Phosphatase 235H, Pro-B-Type Natriuretic Peptide 946H, Total Protein 6.6, Albumin 2.4L, Globulin 4.2, Albumin /Globulin Ratio 0.5L, Amylase Level 188H, Lipase 173H, Free Thyroxine 1.22 Height (Feet): 5 Height (Inches): 7.00 Weight (Pounds): 221 General Appearance: no apparent distress EENT: TMs normal Neck: supple Cardiovascular: no gallop/murmur Respiratory/Chest: normal breath sounds Abdomen: soft Extremities: normal range of motion Edema: 1+ Leg (L), 1+ Leg (R) Edema: mild edema Neurologic: alert Skin: warm/dry Abdifatah Ramirez Nov 27, 2016 16:35
--- NOTE | 2016-11-27 16:49 | Cardiac Electrophysiology PN ---
Assessment/Plan Assessment/Plan 1. Sinus tachycardia due to the patient's sepsis. History of atrial fibrillation but remained in sinus rhythm. 2. Paroxysmal atrial fibrillation. The patient was on Coumadin with supratherapeutic INR. Coumadin is on hold until the INR comes to therapeutic range. Off of any AV teodora jacinto. Echo EF Normal 3. Sepsis. The patient is on broad-spectrum antibiotic with vancomycin and Zosyn. 4. Status post percutaneous endoscopic gastrostomy placement.With high residual. Awaiting MRI of abdomen. 5. Hypernatremia secondary to dehydration. 6. Coffee-ground emesis. Further evaluation per Dr. Wilson. 7. Pancreatitis. CHAPINCITO RN Subjective Subjective Confused. Got FFP for bleeding from Right femoral central line.Off pressors and in SR. Objective Last 24 Hour Vital Signs Date Time Temp Pulse Resp B/P Pulse Ox O2 Delivery O2 Flow Rate FiO2 11/27/16 15:00 99.2 94 28 107/58 100 Venturi Mask 14.0 55 11/27/16 14:00 92 27 106/61 100 Venturi Mask 14.0 55 11/27/16 13:00 92 28 107/58 100 Venturi Mask 14.0 55 11/27/16 13:00 93 28 98/58 100 Venturi Mask 14.0 55 11/27/16 12:00 90 11/27/16 12:00 99.6 92 30 90/56 100 Non-Rebreather 15.0 100 11/27/16 11:00 92 30 100/56 100 Non-Rebreather 15.0 100 11/27/16 10:00 56 30 96/51 100 Non-Rebreather 15.0 100 11/27/16 09:00 89 30 100/64 100 Non-Rebreather 15.0 100 11/27/16 08:48 90 98/59 11/27/16 08:00 90 11/27/16 08:00 98.0 89 28 97/62 100 Non-Rebreather 15.0 100 11/27/16 07:11 100 Non-Rebreather 15.0 100 11/27/16 07:11 Non-Rebreather 15.0 100 11/27/16 07:11 89 16 Non-Rebreather 15.0 100 11/27/16 07:06 92 28 107/63 100 Non-Rebreather 15.0 100 11/27/16 06:00 86 30 100/58 100 Non-Rebreather 15.0 100 11/27/16 05:01 97 28 89/60 100 Non-Rebreather 15.0 100 11/27/16 04:00 89 11/27/16 03:55 97.8 93 27 94/61 100 Non-Rebreather 15.0 100 11/27/16 03:00 93 27 94/61 100 Non-Rebreather 15.0 100 11/27/16 02:01 97.8 98 34 98/59 100 Non-Rebreather 15.0 100 11/27/16 01:00 98.5 98 30 100/60 100 Non-Rebreather 15.0 100 11/27/16 00:00 98.8 94 30 81/52 100 Non-Rebreather 15.0 100 11/27/16 00:00 101 11/26/16 23:00 98.5 100 30 92/62 100 Non-Rebreather 15.0 100 11/26/16 22:00 106 33 91/55 100 Ambu-Bag 15.0 100 11/26/16 21:25 97 Non-Rebreather 15.0 100 11/26/16 21:25 Non-Rebreather 15.0 100 11/26/16 21:23 106 16 Non-Rebreather 15.0 100 11/26/16 21:00 106 30 103/66 100 Ambu-Bag 15.0 100 11/26/16 20:00 106 33 100/50 100 Ambu-Bag 15.0 100 11/26/16 20:00 108 11/26/16 19:00 99.5 111 31 102/68 100 Non-Rebreather 15.0 100 11/26/16 18:00 110 31 100/83 100 Non-Rebreather 15.0 100 11/26/16 17:00 101.5 110 31 92/61 100 Non-Rebreather 15.0 100 Intake and Output 11/26/16 11/27/16 19:00 07:00 Intake Total 662.5 ml 1630.5 ml Output Total 230 ml 660 ml Balance 432.5 ml 970.5 ml Intake IV Total 662.5 ml 1027.5 ml Blood Product 603 ml Output Urine Total 230 ml 360 ml Gastric Drainage Total 300 ml # Bowel Movements 1 Laboratory Tests Test 3/13/17 20:00 11/27/16 07:00 Prothrombin Time 21.9 SEC (9.30-11.50) H 12.6 SEC (9.30-11.50) H Prothromb Time International Ratio 2.1 (0.9-1.1) H 1.2 (0.9-1.1) H Total Creatine Kinase 132 U/L (38-174) 110 U/L (38-174) White Blood Count 14.1 K/UL (4.8-10.8) H Red Blood Count 3.79 M/UL (4.70-6.10) L Hemoglobin 11.7 G/DL (14.2-18.0) L Hematocrit 37.5 % (42.0-52.0) L Mean Corpuscular Volume 99 FL (80-99) Mean Corpuscular Hemoglobin 31.0 PG (27.0-31.0) Mean Corpuscular Hemoglobin Concent 31.3 G/DL (32.0-36.0) L Red Cell Distribution Width 14.4 % (11.6-14.8) Platelet Count 182 K/UL (150-450) Mean Platelet Volume 9.1 FL (6.5-10.1) Neutrophils (%) (Auto) % (45.0-75.0) Lymphocytes (%) (Auto) % (20.0-45.0) Monocytes (%) (Auto) % (1.0-10.0) Eosinophils (%) (Auto) % (0.0-3.0) Basophils (%) (Auto) % (0.0-2.0) Differential Total Cells Counted 100 Neutrophils % (Manual) 89 % (45-75) H Lymphocytes % (Manual) 5 % (20-45) L Monocytes % (Manual) 2 % (1-10) Eosinophils % (Manual) 0 % (0-3) Basophils % (Manual) 0 % (0-2) Band Neutrophils 4 % (0-8) Platelet Estimate Adequate Platelet Morphology Normal Hypochromasia 1+ Activated Partial Thromboplast Time 36 SEC (23-33) H Sodium Level 155 mEQ/L (135-145) H Potassium Level 4.2 mEQ/L (3.4-4.9) Chloride Level 112 mEQ/L (98-107) H Carbon Dioxide Level 28 mEQ/L (20-30) Anion Gap 15 (5-15) Blood Urea Nitrogen 84 mg/dL (7-23) #H Creatinine 2.8 mg/dL (0.7-1.2) #H Estimat Glomerular Filtration Rate mL/min (>60) Glucose Level 207 mg/dL (74-106) #H Calcium Level 8.3 mg/dL (8.6-10.2) L Phosphorus Level 4.5 mg/dL (2.5-4.8) Magnesium Level 2.9 mg/dL (1.7-2.5) H Total Bilirubin 1.5 mg/dL (0.0-1.2) H Direct Bilirubin 0.9 mg/dL (0.1-0.3) H Aspartate Amino Transf (AST/SGOT) 141 U/L (5-40) H Alanine Aminotransferase (ALT/SGPT) 196 U/L (3-41) H Alkaline Phosphatase 235 U/L (40-129) H Pro-B-Type Natriuretic Peptide 946 pg/mL (0-450) H Total Protein 6.6 g/dL (6.6-8.7) Albumin 2.4 g/dL (3.5-5.2) L Globulin 4.2 g/dL Albumin/Globulin Ratio 0.5 (1.0-2.7) L Amylase Level 188 U/L (10-110) H Lipase 173 U/L (< 60) H Free Thyroxine 1.22 ng/dL (0.86-1.85) Microbiology Date/Time Source Procedure Growth Status 11/25/16 21:45 Blood Blood Culture - Preliminary Gram Negative Bacillus 1 Resulted 11/25/16 21:39 Blood Blood Culture - Preliminary Resulted Objective NECK: No JVD. LUNGS: Coarse rhonchi. CARDIOVASCULAR: Tachycardic. S1 and S2 with no gallop, rub, or murmur. ABDOMEN: Soft. G-tube. EXTREMITIES: 1+ pitting edema. BRYON AC Nov 27, 2016 16:49
--- NOTE | 2016-11-27 17:28 | Consultation ---
DATE OF CONSULTATION: 11/26/2016 CONSULTING PHYSICIAN: Rohan Garcia M.D. REFERRING PHYSICIAN: Aliza Faria M.D. REASON FOR CONSULTATION: Hyperglycemia. SOURCE: It is important to note that history is obtained from the review of the chart and medical records as the patient is not able to provide any meaningful history. The patient is on O2 mask in the ICU. HISTORY OF PRESENT ILLNESS: The patient is a 76-year-old male with a past medical history of dementia, seizures, CVA, aphasia, hypertension, dysphagia, status post PEG placement, who was brought in from [facility] for elevated glucose and sepsis. The patient was noted to have a significantly elevated lipase. Temperature is 101. The patient was tachycardic. Admitted to the ICU. The patient had coffee-ground emesis with elevated INR of 8.2, currently being infused by FFP. PAST MEDICAL HISTORY: 1. Atrial fibrillation. 2. Hypertension. 3. Dysphagia. 4. PEG placement. 5. CVA. 6. Dementia. 7. Aphasia. 8. Seizure disorder. 9. Diabetes. PAST SURGICAL HISTORY: PEG placement. ALLERGIES TO MEDICATIONS: None. CURRENT MEDICATIONS: Reviewed and reconciled. FAMILY HISTORY: Unknown. REVIEW OF SYSTEMS: Unobtainable. PHYSICAL EXAMINATION: GENERAL: The patient is lethargic. VITAL SIGNS: Blood pressure 100/58, respiratory rate 30, pulse of 86, and temperature of 97.8. HEENT: Pupils are equal and reactive to light. Sclerae are anicteric. Conjunctivae are clear. HEART: Tachycardic. LUNGS: Clear. No rales. Decreased breath sounds. ABDOMEN: Positive bowel sounds. G-tube noted. EXTREMITIES: No clubbing or cyanosis. Positive for edema. LABORATORY DATA: WBC 12.4, hemoglobin 15, hematocrit 50.6, and platelet count 243,000. Sodium 151, potassium 4.4, chloride 107, BUN 58, creatinine 1.5, and glucose of 359. Lactic acid of 3.4. Lipase of 1252. DIAGNOSES: 1. Acute pancreatitis. 2. Gastrointestinal bleeding. 3. Hypertension. 4. Diabetes, out of control. 5. Acute kidney injury. PLAN: 1. Continue IV hydration. 2. Start basal insulin Levemir 8 units q.12 h. 3. The patient is currently not on feeding. Once the feeding is started, we will increase the insulin regimen. Blood glucose values will be followed and elevated glucose will be covered with NovoLog insulin. Further adjustment according to the glucose values. Thank you Dr. Faria for the courtesy of this consultation. Rohan Garcia M.D. DR: ARVIND JOB#: [id number] CC: JOSE CARLOS
[2016-11-27] MEDS: Pantoprazole Inj IVP SCH (18:03)
[2016-11-28] VITALS (15 sets, daily range): BP systolic 88–120; BP diastolic 45–72
[2016-11-28] MEDS: Piperacillin/Tazobactam 3.375 GM in NS 110 ML IVPB SCH ×2 (00:22→11:50)
[2016-11-28 06:02] LABS: MEAN CORPUSCULAR HEMOGLOBIN 30.6 PG (27.0-31.0); MEAN CORPUSCULAR HGB CONC 30.9 G/DL (32.0-36.0); MEAN CORPUSCULAR VOLUME 99 FL (80-99); MEAN PLATELET VOLUME 8.8 FL (6.5-10.1); PLATELET COUNT 186 K/UL (150-450); RED BLOOD COUNT 3.64 M/UL (4.70-6.10); RED CELL DISTRIBUTION WIDTH 14.7 % (11.6-14.8); WHITE BLOOD COUNT 18.9 K/UL (4.8-10.8)
[2016-11-28 06:09] LABS: INR 1.7 (0.9-1.1); PROTHROMBIN TIME 17.5 SEC (9.30-11.50)
[2016-11-28 06:20] LABS: ALANINE AMINOTRANSFERASE 155 U/L (3-41); ALBUMIN/GLOBULIN RATIO 0.5 (1.0-2.7); ANION GAP 14 (5-15); ASPARTATE AMINO TRANSFERASE 109 U/L (5-40); CALCIUM 8.4 mg/dL (8.6-10.2); CARBON DIOXIDE 27 mEQ/L (20-30); CHLORIDE 117 mEQ/L (98-107); CREATININE 2.4 mg/dL (0.7-1.2); HEMOLYSIS 3; SODIUM 158 mEQ/L (135-145); TOTAL PROTEIN 6.5 g/dL (6.6-8.7)
[2016-11-28 06:22] LABS: MAGNESIUM 2.8 mg/dL (1.7-2.5); PHOSPHORUS 3.3 mg/dL (2.5-4.8)
[2016-11-28] MEDS: NovoLOG Insulin Flexpen SUBQ SCH ×2 (06:33→20:26)
--- NOTE | 2016-11-28 06:55 | General Progress Note ---
Assessment/Plan Problem List: (1) Hyperglycemia ICD Codes: R73.9 - Hyperglycemia, unspecified SNOMED: 51705882 (2) FABIOLA (acute kidney injury) ICD Codes: N17.9 - Acute kidney failure, unspecified SNOMED: 58006863 (3) Coagulopathy ICD Codes: D68.9 - Coagulopathy SNOMED: 66800185 (4) Acute pancreatitis ICD Codes: K85.90 - Acute pancreatitis without necrosis or infection, unspecified SNOMED: 453590344 Qualifiers: Qualified Codes: K85.10 - Biliary acute pancreatitis without necrosis or infection Assessment/Plan glycemic control improved continue Levemir 8 units bid continue Novolog sliding scale as is Subjective ROS Limited/Unobtainable: Yes Allergies: Coded Allergies: No Known Allergies (Verified , 12/27/08) Subjective still in icu on O2 mask Objective Last 24 Hour Vital Signs Date Time Temp Pulse Resp B/P Pulse Ox O2 Delivery O2 Flow Rate FiO2 11/28/16 06:00 89 29 108/54 98 Venturi Mask 14.0 55 11/28/16 05:00 88 28 112/60 98 Venturi Mask 14.0 55 11/28/16 04:00 89 11/28/16 04:00 90 28 103/61 98 Venturi Mask 14.0 55 11/28/16 03:00 91 25 88/54 97 Venturi Mask 14.0 55 11/28/16 02:00 90 26 96/56 98 Venturi Mask 14.0 55 11/28/16 01:00 93 28 98/53 97 Venturi Mask 14.0 55 11/28/16 00:00 93 11/28/16 00:00 99.0 92 24 102/46 95 Venturi Mask 14.0 55 92 11/27/16 23:00 93 16 86/54 100 Venturi Mask 14.0 55 93 11/27/16 22:00 92 26 97/60 96 Venturi Mask 55 11/27/16 21:00 95 27 97/56 96 Venturi Mask 14.0 55 11/27/16 20:00 98.4 96 26 90/58 93 Venturi Mask 14.0 55 11/27/16 20:00 96 11/27/16 19:27 Venturi Mask 15.0 55 11/27/16 19:26 95 Venturi Mask 15.0 55 11/27/16 19:25 97 20 Venturi Mask 15.0 55 11/27/16 19:00 100 16 103/45 100 Venturi Mask 14.0 55 11/27/16 18:00 92 16 109/48 94 Venturi Mask 14.0 55 11/27/16 17:00 97 16 100/49 95 Venturi Mask 14.0 55 11/27/16 16:00 98.2 84 16 142/46 100 Venturi Mask 14.0 55 11/27/16 16:00 90 11/27/16 15:00 99.2 94 28 107/58 100 Venturi Mask 14.0 55 11/27/16 14:00 92 27 106/61 100 Venturi Mask 14.0 55 11/27/16 13:00 92 28 107/58 100 Venturi Mask 14.0 55 11/27/16 13:00 93 28 98/58 100 Venturi Mask 14.0 55 11/27/16 12:00 90 11/27/16 12:00 99.6 92 30 90/56 100 Non-Rebreather 15.0 100 11/27/16 11:00 92 30 100/56 100 Non-Rebreather 15.0 100 11/27/16 10:00 56 30 96/51 100 Non-Rebreather 15.0 100 11/27/16 09:00 89 30 100/64 100 Non-Rebreather 15.0 100 11/27/16 08:48 90 98/59 11/27/16 08:00 90 11/27/16 08:00 98.0 89 28 97/62 100 Non-Rebreather 15.0 100 11/27/16 07:11 100 Non-Rebreather 15.0 100 11/27/16 07:11 Non-Rebreather 15.0 100 11/27/16 07:11 89 16 Non-Rebreather 15.0 100 11/27/16 07:06 92 28 107/63 100 Non-Rebreather 15.0 100 Intake and Output 11/27/16 11/28/16 19:00 07:00 Intake Total 675 ml 785.0 ml Output Total 1520 ml 795 ml Balance -845 ml -10.0 ml Intake IV Total 675 ml 785.0 ml Output Urine Total 1220 ml 795 ml Gastric Drainage Total 300 ml Laboratory Tests 11/27/16 07:00: White Blood Count 14.1H, Red Blood Count 3.79L, Hemoglobin 11.7L, Hematocrit 37.5L, Mean Corpuscular Volume 99, Mean Corpuscular Hemoglobin 31.0, Mean Corpuscular Hemoglobin Concent 31.3L, Red Cell Distribution Width 14.4, Platelet Count 182, Mean Platelet Volume 9.1, Neutrophils (%) (Auto) , Lymphocytes (%) (Auto) , Monocytes (%) (Auto) , Eosinophils (%) (Auto) , Basophils (%) (Auto) , Differential Total Cells Counted 100, Neutrophils % ( Manual) 89H, Lymphocytes % (Manual) 5L, Monocytes % (Manual) 2, Eosinophils % ( Manual) 0, Basophils % (Manual) 0, Band Neutrophils 4, Platelet Estimate Adequate, Platelet Morphology Normal, Hypochromasia 1+, Prothrombin Time 12.6H, Prothromb Time International Ratio 1.2H, Activated Partial Thromboplast Time 36H , Sodium Level 155H, Potassium Level 4.2, Chloride Level 112H, Carbon Dioxide Level 28, Anion Gap 15, Blood Urea Nitrogen 84#H, Creatinine 2.8#H, Estimat Glomerular Filtration Rate , Glucose Level 207#H, Calcium Level 8.3L, Phosphorus Level 4.5, Magnesium Level 2.9H, Total Bilirubin 1.5H, Direct Bilirubin 0.9H, Aspartate Amino Transf (AST/SGOT) 141H, Alanine Aminotransferase (ALT/SGPT) 196H, Alkaline Phosphatase 235H, Total Creatine Kinase 110, Pro-B-Type Natriuretic Peptide 946H, Total Protein 6.6, Albumin 2.4L , Globulin 4.2, Albumin/Globulin Ratio 0.5L, Amylase Level 188H, Lipase 173H, Free Thyroxine 1.22 11/28/16 04:30: White Blood Count 18.9H, Red Blood Count 3.64L, Hemoglobin 11.1L, Hematocrit 36.1L, Mean Corpuscular Volume 99, Mean Corpuscular Hemoglobin 30.6, Mean Corpuscular Hemoglobin Concent 30.9L, Red Cell Distribution Width 14.7, Platelet Count 186, Mean Platelet Volume 8.8, Neutrophils (%) (Auto) , Lymphocytes (%) (Auto) , Monocytes (%) (Auto) , Eosinophils (%) (Auto) , Basophils (%) (Auto) , Neutrophils % (Manual) [Pending], Lymphocytes % (Manual) [Pending], Platelet Estimate [Pending], Platelet Morphology [Pending], Prothrombin Time 17.5H, Prothromb Time International Ratio 1.7H, Activated Partial Thromboplast Time 39H, Sodium Level 158H, Potassium Level 4.0, Chloride Level 117H, Carbon Dioxide Level 27, Anion Gap 14, Blood Urea Nitrogen 76H, Creatinine 2.4H, Estimat Glomerular Filtration Rate , Glucose Level 151H, Calcium Level 8.4L, Phosphorus Level 3.3, Magnesium Level 2.8H, Total Bilirubin 1.2, Direct Bilirubin [Pending], Aspartate Amino Transf (AST/SGOT) 109H, Alanine Aminotransferase (ALT/SGPT) 155H, Alkaline Phosphatase 215H, Total Creatine Kinase [Pending], Pro-B-Type Natriuretic Peptide [Pending], Total Protein 6.5L, Albumin 2.3L, Globulin 4.2, Albumin/Globulin Ratio 0.5L, Lipase 71H, Hemoglobin A1c [Pending], Uric Acid [Pending], Gamma Glutamyl Transpeptidase [Pending], C-Reactive Protein, Quantitative [Pending], Triglycerides Level [Pending], Cholesterol Level [Pending], LDL Cholesterol [ Pending], HDL Cholesterol [Pending], Cholesterol/HDL Ratio [Pending], Thyroid Stimulating Hormone (TSH) [Pending], Vancomycin Level Trough 14.9H Height (Feet): 5 Height (Inches): 7.00 Weight (Pounds): 221 General Appearance: moderate distress Neck: normal alignment Cardiovascular: normal rate Respiratory/Chest: decreased breath sounds Abdomen: normal bowel sounds Objective Current Medications Medications (Trade) Dose Ordered Sig/Jamaal Route PRN Reason Start Time Stop Time Status Last Admin Dose Admin Acetaminophen (Tylenol) 650 mg Q4H PRN ORAL Fever 11/25/16 23:15 12/25/16 23:14 Albuterol/ Ipratropium (DuoNeb 0.5-3(2.5)mg/3ml) 3 ml Q4H PRN HHN Shortness of Breath 11/25/16 23:15 11/30/16 23:14 Clonidine HCl (Catapres) 0.1 mg Q8H PRN GT sbp> 160 11/26/16 07:15 12/26/16 07:14 Dextrose STAT PRN IV Hypoglycemia 11/27/16 06:15 12/27/16 06:14 Insulin Aspart (NovoLOG) BEFORE MEALS AND HS SUBQ 11/26/16 06:30 12/26/16 06:29 11/28/16 06:33 Insulin Detemir (Levemir) 8 units Q12HR SUBQ 11/27/16 09:00 12/27/16 08:59 11/27/16 21:25 Levofloxacin (Levaquin) 50 ml @ 50 mls/hr Q48H IVPB 11/29/16 17:00 12/04/16 16:59 Lorazepam (Ativan 2mg/ml 1ml) 2 mg Q2H PRN IV agitation 11/25/16 23:15 12/02/16 23:14 Morphine Sulfate (Morphine Sulfate) 4 mg Q4H PRN IVP Severe Pain (Pain Scale 7-10) 11/25/16 23:15 12/02/16 23:14 Nitroglycerin (Ntg) 0.4 mg Q5M PRN SL Prn Chest Pain 11/25/16 23:15 12/25/16 23:14 Ondansetron HCl (Zofran) 4 mg Q6H PRN IVP Nausea & Vomiting 11/25/16 23:15 12/25/16 23:14 Pantoprazole (Protonix) 40 mg BID IVP 11/27/16 18:00 12/27/16 17:59 11/27/16 18:03 Piperacillin Sod/ Tazobactam Sod 3.375 gm/Sodium Chloride 110 ml @ 27.5 mls/hr Q12HR@0000,1200 IVPB 11/28/16 00:00 12/05/16 00:00 11/28/16 00:22 Polyethylene Glycol (Miralax) 17 gm DAILYPRN PRN ORAL Constipation 11/25/16 23:15 12/25/16 23:14 Sodium Chloride (0.45% NS 1000ml) 1,000 ml @ 75 mls/hr [id number] IV 11/26/16 12:00 12/26/16 11:59 11/27/16 21:15 Tramadol HCl (Ultram) 50 mg BID PRN ORAL For Pain 11/25/16 23:15 12/02/16 23:14 Valproic Acid 500 mg 500 mg THREE TIMES A DAY GT 11/26/16 09:00 12/26/16 08:59 11/27/16 18:04 Vancomycin HCl (Vanco rx to dose) 1 ea DAILY PRN MISC Per rx protocol 11/25/16 23:15 12/25/16 23:14 Item Value Date Time Bedside Blood Glucose 155 mg/dl H 11/28/16 0633 Bedside Blood Glucose 193 mg/dl H 11/27/16 2125 Bedside Blood Glucose 167 mg/dl H 11/27/16 1805 Bedside Blood Glucose 165 mg/dl H 11/27/16 1211 Bedside Blood Glucose 152 mg/dl H 11/27/16 0855 Bedside Blood Glucose 205 mg/dl H 11/27/16 0600 SUZIE EFLDER 15, 2017 06:55
[2016-11-28 07:03] LABS: BILIRUBIN,DIRECT 0.5 mg/dL (0.1-0.3)
[2016-11-28 07:08] LABS: THYROID STIMULATING HORMONE 0.225 uIU/mL (0.300-4.500)
[2016-11-28 07:14] LABS: CHOLESTEROL 94 mg/dL (< 200); CHOLESTEROL/HDL RATIO 18.8 (3.3-4.4); HEMOLYSIS 4; LDL CHOLESTEROL (CALC.) 48 mg/dL (60-99)
[2016-11-28 07:43] LABS: CRP QUANT 32.1 mg/dL (< 0.5)
[2016-11-28] MEDS: Pantoprazole Inj IVP SCH ×2 (08:11→18:22)
[2016-11-28] MEDS: Valproic Acid 250mg/5ml Liquid GT SCH (08:12)
[2016-11-28] MEDS: Levemir Flexpen SUBQ SCH ×2 (08:24→22:02)
--- NOTE | 2016-11-28 08:40 | General Progress Note ---
Assessment/Plan Assessment/Plan ASSESSMENT: 1. Coagulopathy with supertherapeutic - now improved 2. Anemia 2/2 chronic disease, is without major changes, hgb >10 3. Leukocytosis secondary to underlying infection with pancreatitis and elevated lipase. 4. Pancreatitis. 5. r/o gastrointestinal bleed. 6. Dysphagia. 7. Dementia. 8. Hyperglycemia. 9. Sepsis. RECOMMENDATIONS: 1. Monitor counts. 2. Transfuse as needed 3. Anemia w/u if hgb <10 4. Hold off on Coumadin. 5. Consider inr 2-3 once coumadin restarted 6. Antibiotics as needed. 7. Discussed with staff. 8. Continue PPI. Thank you, Abdifatah Ramirez MD Subjective Constitutional: Reports: no symptoms HEENT: Reports: no symptoms Cardiovascular: Reports: no symptoms Respiratory: Reports: no symptoms Gastrointestinal/Abdominal: Reports: poor appetite Genitourinary: Reports: no symptoms Neurologic/Psychiatric: Reports: no symptoms Endocrine: Reports: no symptoms Hematologic/Lymphatic: Reports: anemia Allergies: Coded Allergies: No Known Allergies (Verified , 12/27/08) Subjective stable, without events reported Objective Last 24 Hour Vital Signs Date Time Temp Pulse Resp B/P Pulse Ox O2 Delivery O2 Flow Rate FiO2 11/28/16 07:24 Venturi Mask 15.0 55 11/28/16 07:24 100 Venturi Mask 15.0 55 11/28/16 07:23 94 20 Venturi Mask 15.0 55 11/28/16 07:00 94 29 110/50 98 Venturi Mask 14.0 55 11/28/16 06:00 89 29 108/54 98 Venturi Mask 14.0 55 11/28/16 05:00 88 28 112/60 98 Venturi Mask 14.0 55 11/28/16 04:00 89 11/28/16 04:00 90 28 103/61 98 Venturi Mask 14.0 55 11/28/16 03:00 91 25 88/54 97 Venturi Mask 14.0 55 11/28/16 02:00 90 26 96/56 98 Venturi Mask 14.0 55 11/28/16 01:00 93 28 98/53 97 Venturi Mask 14.0 55 11/28/16 00:00 93 11/28/16 00:00 99.0 92 24 102/46 95 Venturi Mask 14.0 55 92 11/27/16 23:00 93 16 86/54 100 Venturi Mask 14.0 55 93 11/27/16 22:00 92 26 97/60 96 Venturi Mask 55 11/27/16 21:00 95 27 97/56 96 Venturi Mask 14.0 55 11/27/16 20:00 98.4 96 26 90/58 93 Venturi Mask 14.0 55 11/27/16 20:00 96 11/27/16 19:27 Venturi Mask 15.0 55 11/27/16 19:26 95 Venturi Mask 15.0 55 11/27/16 19:25 97 20 Venturi Mask 15.0 55 11/27/16 19:00 100 16 103/45 100 Venturi Mask 14.0 55 11/27/16 18:00 92 16 109/48 94 Venturi Mask 14.0 55 11/27/16 17:00 97 16 100/49 95 Venturi Mask 14.0 55 11/27/16 16:00 98.2 84 16 142/46 100 Venturi Mask 14.0 55 11/27/16 16:00 90 11/27/16 15:00 99.2 94 28 107/58 100 Venturi Mask 14.0 55 11/27/16 14:00 92 27 106/61 100 Venturi Mask 14.0 55 11/27/16 13:00 92 28 107/58 100 Venturi Mask 14.0 55 11/27/16 13:00 93 28 98/58 100 Venturi Mask 14.0 55 11/27/16 12:00 90 11/27/16 12:00 99.6 92 30 90/56 100 Non-Rebreather 15.0 100 11/27/16 11:00 92 30 100/56 100 Non-Rebreather 15.0 100 11/27/16 10:00 56 30 96/51 100 Non-Rebreather 15.0 100 11/27/16 09:00 89 30 100/64 100 Non-Rebreather 15.0 100 11/27/16 08:48 90 98/59 Intake and Output 11/27/16 11/28/16 19:00 07:00 Intake Total 675 ml 785.0 ml Output Total 1520 ml 1020 ml Balance -845 ml -235.0 ml Intake IV Total 675 ml 785.0 ml Output Urine Total 1220 ml 920 ml Gastric Drainage Total 300 ml 100 ml # Bowel Movements 1 Laboratory Tests 11/28/16 04:30: White Blood Count 18.9H, Red Blood Count 3.64L, Hemoglobin 11.1L, Hematocrit 36.1L, Mean Corpuscular Volume 99, Mean Corpuscular Hemoglobin 30.6, Mean Corpuscular Hemoglobin Concent 30.9L, Red Cell Distribution Width 14.7, Platelet Count 186, Mean Platelet Volume 8.8, Neutrophils (%) (Auto) , Lymphocytes (%) (Auto) , Monocytes (%) (Auto) , Eosinophils (%) (Auto) , Basophils (%) (Auto) , Neutrophils % (Manual) [Pending], Lymphocytes % (Manual) [Pending], Platelet Estimate [Pending], Platelet Morphology [Pending], Prothrombin Time 17.5H, Prothromb Time International Ratio 1.7H, Activated Partial Thromboplast Time 39H, Sodium Level 158H, Potassium Level 4.0, Chloride Level 117H, Carbon Dioxide Level 27, Anion Gap 14, Blood Urea Nitrogen 76H, Creatinine 2.4H, Estimat Glomerular Filtration Rate , Glucose Level 151H, Hemoglobin A1c 7.0H, Uric Acid 8.0H, Calcium Level 8.4L, Phosphorus Level 3.3, Magnesium Level 2.8H, Total Bilirubin 1.2, Direct Bilirubin 0.5H, Gamma Glutamyl Transpeptidase 392H, Aspartate Amino Transf (AST/SGOT) 109H, Alanine Aminotransferase (ALT/SGPT) 155H, Alkaline Phosphatase 215H, Total Creatine Kinase 123, C-Reactive Protein, Quantitative 32.1H, Pro-B-Type Natriuretic Peptide 777H, Total Protein 6.5L, Albumin 2.3L, Globulin 4.2, Albumin/Globulin Ratio 0.5L, Triglycerides Level 205H, Cholesterol Level 94, LDL Cholesterol 48L , HDL Cholesterol 5, Cholesterol/HDL Ratio 18.8H, Lipase 71H, Thyroid Stimulating Hormone (TSH) 0.225L, Vancomycin Level Trough 14.9H Height (Feet): 5 Height (Inches): 7.00 Weight (Pounds): 221 General Appearance: no apparent distress EENT: TMs normal Neck: normal alignment Cardiovascular: regular rhythm Respiratory/Chest: chest wall non-tender Abdomen: non tender, no mass Extremities: non-tender Edema: 1+ Leg (L), 1+ Leg (R) Edema: mild edema Neurologic: alert Abdifatah Ramirez Nov 28, 2016 08:40
[2016-11-28] MEDS ORDERED: Vancomycin 1.5 GM in D5W 325 ML IVPB ONE (10:00)
[2016-11-28 10:09] LABS: ABG ALLEN TEST POSITIVE; ABG BASE EXCESS 0.1; ABG PCO2 39.4 mmHg (35.0-45.0)
--- NOTE | 2016-11-28 11:05 | Pulmonolgy Critical Care Note ---
Critical Care - Asmt/Plan Problems: (1) HCAP (healthcare-associated pneumonia) (2) UTI (urinary tract infection) (3) Coffee ground vomiting (4) Acute pancreatitis (5) Feeding by G-tube (6) Sepsis Respiratory: monitor respiratory rate, adjust FIO2, CXR Cardiac: continue to monitor HR/BP Renal: F/U I&O, keep IV fluid, check electrolytes, other - change IVF to d5w becasue of hypernatremia Gastrointestinal: hold feedings Endocrine: monitor blood sugar, continue sliding scale insulin Hematologic: monitor H/H, transfuse if hgb<8.5 Neurologic: PRN Ativan, PRN Morphine, keep patient comfortable Affect: PRN ativan Prophylaxis: Protonix Disposition: transfer to Time Spent (Minutes): 40 Notes Reviewed: cardio, renal Discussed with: nurses, consultants, 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0 55 11/28/16 04:00 89 11/28/16 04:00 90 28 103/61 98 Venturi Mask 14.0 55 11/28/16 03:00 91 25 88/54 97 Venturi Mask 14.0 55 11/28/16 02:00 90 26 96/56 98 Venturi Mask 14.0 55 11/28/16 01:00 93 28 98/53 97 Venturi Mask 14.0 55 11/28/16 00:00 93 3/15/17 00:00 99.0 92 24 102/46 95 Venturi Mask 14.0 55 92 11/27/16 23:00 93 16 86/54 100 Venturi Mask 14.0 55 93 11/27/16 22:00 92 26 97/60 96 Venturi Mask 55 11/27/16 21:00 95 27 97/56 96 Venturi Mask 14.0 55 11/27/16 20:00 98.4 96 26 90/58 93 Venturi Mask 14.0 55 11/27/16 20:00 96 11/27/16 19:27 Venturi Mask 15.0 55 11/27/16 19:26 95 Venturi Mask 15.0 55 11/27/16 19:25 97 20 Venturi Mask 15.0 55 11/27/16 19:00 100 16 103/45 100 Venturi Mask 14.0 55 11/27/16 18:00 92 16 109/48 94 Venturi Mask 14.0 55 11/27/16 17:00 97 16 100/49 95 Venturi Mask 14.0 55 11/27/16 16:00 98.2 84 16 142/46 100 Venturi Mask 14.0 55 11/27/16 16:00 90 11/27/16 15:00 99.2 94 28 107/58 100 Venturi Mask 14.0 55 11/27/16 14:00 92 27 106/61 100 Venturi Mask 14.0 55 11/27/16 13:00 92 28 107/58 100 Venturi Mask 14.0 55 11/27/16 13:00 93 28 98/58 100 Venturi Mask 14.0 55 11/27/16 12:00 90 11/27/16 12:00 99.6 92 30 90/56 100 Non-Rebreather 15.0 100 Status: awake Condition: improving HEENT: atraumatic Neck: full ROM Lungs: clear Heart: HR/BP stable, HR/BP unstable Abdomen: soft, non-tender Extremities: no C/C/E, edema Micro: Microbiology Date/Time Source Procedure Growth Status 11/25/16 21:45 Blood Blood Culture - Final Citrobacter Diversus Complete 11/25/16 21:39 Blood Blood Culture - Preliminary Staphylococcus Sp Coag Neg Resulted 11/27/16 11:50 Other Fluid Gram Stain - Final Resulted 11/27/16 11:50 Other Fluid Aerobic Culture - Preliminary NO GROWTH Resulted 11/27/16 11:50 Other Fluid Anaerobic Culture Pending Resulted 11/27/16 07:00 Sputum Gram Stain - Final Resulted 11/27/16 07:00 Sputum Sputum Culture - Preliminary NORMAL UPPER RESPIRATORY DEBBIE AT 24 ... Resulted 11/25/16 23:30 Nasal Nares MRSA Culture - Final NO METHICILLIN RESISTANT STAPH AUREUS... Complete 11/25/16 23:30 Rectum VRE Culture - Final NO VANCOMYCIN RESISTANT ENTEROCOCCUS ... Complete Accucheck: 193 Critical Care - Subjective ROS Limited/Unobtainable: Yes ICU Day: 3 Condition: improving EKG Rhythm: Sinus Rhythm FI02: 55 Sputum Amount: None Fluids: d5 1/2 NS 50 cc.hour I&O: Intake and Output 11/27/16 11/28/16 19:00 07:00 Intake Total 675 ml 860.0 ml Output Total 1520 ml 1020 ml Balance -845 ml -160.0 ml Intake IV Total 675 ml 860.0 ml Output Urine Total 1220 ml 920 ml Gastric Drainage Total 300 ml 100 ml # Bowel Movements 1 CXR: No change Labs: Laboratory Tests Test 11/28/16 04:30 11/28/16 09:55 White Blood Count 18.9 K/UL (4.8-10.8) H Red Blood Count 3.64 M/UL (4.70-6.10) L Hemoglobin 11.1 G/DL (14.2-18.0) L Hematocrit 36.1 % (42.0-52.0) L Mean Corpuscular Volume 99 FL (80-99) Mean Corpuscular Hemoglobin 30.6 PG (27.0-31.0) Mean Corpuscular Hemoglobin Concent 30.9 G/DL (32.0-36.0) L Red Cell Distribution Width 14.7 % (11.6-14.8) Platelet Count 186 K/UL (150-450) Mean Platelet Volume 8.8 FL (6.5-10.1) Neutrophils (%) (Auto) % (45.0-75.0) Lymphocytes (%) (Auto) % (20.0-45.0) Monocytes (%) (Auto) % (1.0-10.0) Eosinophils (%) (Auto) % (0.0-3.0) Basophils (%) (Auto) % (0.0-2.0) Neutrophils % (Manual) Pending Lymphocytes % (Manual) Pending Platelet Estimate Pending Platelet Morphology Pending Prothrombin Time 17.5 SEC (9.30-11.50) H Prothromb Time International Ratio 1.7 (0.9-1.1) H Activated Partial Thromboplast Time 39 SEC (23-33) H Sodium Level 158 mEQ/L (135-145) H Potassium Level 4.0 mEQ/L (3.4-4.9) Chloride Level 117 mEQ/L (98-107) H Carbon Dioxide Level 27 mEQ/L (20-30) Anion Gap 14 (5-15) Blood Urea Nitrogen 76 mg/dL (7-23) H Creatinine 2.4 mg/dL (0.7-1.2) H Estimat Glomerular Filtration Rate mL/min (>60) Glucose Level 151 mg/dL (74-106) H Hemoglobin A1c 7.0 % (< 6.0) H Uric Acid 8.0 mg/dL (3.0-7.5) H Calcium Level 8.4 mg/dL (8.6-10.2) L Phosphorus Level 3.3 mg/dL (2.5-4.8) Magnesium Level 2.8 mg/dL (1.7-2.5) H Total Bilirubin 1.2 mg/dL (0.0-1.2) Direct Bilirubin 0.5 mg/dL (0.1-0.3) H Gamma Glutamyl Transpeptidase 392 U/L (8-61) H Aspartate Amino Transf (AST/SGOT) 109 U/L (5-40) H Alanine Aminotransferase (ALT/SGPT) 155 U/L (3-41) H Alkaline Phosphatase 215 U/L (40-129) H Total Creatine Kinase 123 U/L (38-174) C-Reactive Protein, Quantitative 32.1 mg/dL (< 0.5) H Pro-B-Type Natriuretic Peptide 777 pg/mL (0-450) H Total Protein 6.5 g/dL (6.6-8.7) L Albumin 2.3 g/dL (3.5-5.2) L Globulin 4.2 g/dL Albumin/Globulin Ratio 0.5 (1.0-2.7) L Triglycerides Level 205 mg/dL (< 150) H Cholesterol Level 94 mg/dL (< 200) LDL Cholesterol 48 mg/dL (60-99) L HDL Cholesterol 5 mg/dL (> 60) Cholesterol/HDL Ratio 18.8 (3.3-4.4) H Lipase 71 U/L (< 60) H Thyroid Stimulating Hormone (TSH) 0.225 uIU/mL (0.300-4.500) Vancomycin Level Trough 14.9 ug/mL (5.0-12.0) H Arterial Blood pH 7.413 (7.350-7.450) Arterial Blood Partial Pressure CO2 39.4 mmHg (35.0-45.0) Arterial Blood Partial Pressure O2 79.2 mmHg (75.0-100.0) Arterial Blood HCO3 24.6 mmol/L (22.0-26.0) Arterial Blood Oxygen Saturation 95.2 % (92.0-98.0) Arterial Blood Base Excess 0.1 Carlos Test Positive SONIA ALBERTS Nov 28, 2016 11:05
--- NOTE | 2016-11-28 11:13 | General Progress Note ---
Assessment/Plan Status: unchanged Status Narrative Cr down 2.4 from 2.8 HyperNatremia persists Assessment/Plan Acute renal failure due to sepsis , low BP , GI bleed Sepsis Hyperglycemia Choledocholithiasis Aspiration into lower respiratory tract coagulopathy 2 to anticoagulation use hx of At fib hx of CVA seizure disorder pressure ulcer dysphagia, G tube HTN Plan: Hydrate- D5 Stop Depakote, high LFTs, check level Avoid Nephrotoxics Monitor renal parameters and H&h Urine studies stop Norvasc and cardura for low bp Per orders Subjective ROS Limited/Unobtainable: No Constitutional: Reports: malaise, weakness Allergies: Coded Allergies: No Known Allergies (Verified , 12/27/08) Objective Last 24 Hour Vital Signs Date Time Temp Pulse Resp B/P Pulse Ox O2 Delivery O2 Flow Rate FiO2 11/28/16 10:00 88 21 101/56 99 Venturi Mask 14.0 55 11/28/16 09:10 99.0 11/28/16 09:00 89 25 115/62 100 Venturi Mask 14.0 55 11/28/16 08:00 98.0 90 25 104/45 100 Venturi Mask 14.0 55 11/28/16 08:00 90 11/28/16 07:24 Venturi Mask 15.0 55 11/28/16 07:24 100 Venturi Mask 15.0 55 11/28/16 07:23 94 20 Venturi Mask 15.0 55 11/28/16 07:00 94 29 110/50 98 Venturi Mask 14.0 55 11/28/16 06:00 89 29 108/54 98 Venturi Mask 14.0 55 11/28/16 05:00 88 28 112/60 98 Venturi Mask 14.0 55 11/28/16 04:00 89 11/28/16 04:00 90 28 103/61 98 Venturi Mask 14.0 55 11/28/16 03:00 91 25 88/54 97 Venturi Mask 14.0 55 11/28/16 02:00 90 26 96/56 98 Venturi Mask 14.0 55 11/28/16 01:00 93 28 98/53 97 Venturi Mask 14.0 55 11/28/16 00:00 93 11/28/16 00:00 99.0 92 24 102/46 95 Venturi Mask 14.0 55 92 11/27/16 23:00 93 16 86/54 100 Venturi Mask 14.0 55 93 11/27/16 22:00 92 26 97/60 96 Venturi Mask 55 11/27/16 21:00 95 27 97/56 96 Venturi Mask 14.0 55 11/27/16 20:00 98.4 96 26 90/58 93 Venturi Mask 14.0 55 11/27/16 20:00 96 11/27/16 19:27 Venturi Mask 15.0 55 11/27/16 19:26 95 Venturi Mask 15.0 55 11/27/16 19:25 97 20 Venturi Mask 15.0 55 11/27/16 19:00 100 16 103/45 100 Venturi Mask 14.0 55 11/27/16 18:00 92 16 109/48 94 Venturi Mask 14.0 55 11/27/16 17:00 97 16 100/49 95 Venturi Mask 14.0 55 11/27/16 16:00 98.2 84 16 142/46 100 Venturi Mask 14.0 55 11/27/16 16:00 90 11/27/16 15:00 99.2 94 28 107/58 100 Venturi Mask 14.0 55 11/27/16 14:00 92 27 106/61 100 Venturi Mask 14.0 55 11/27/16 13:00 92 28 107/58 100 Venturi Mask 14.0 55 11/27/16 13:00 93 28 98/58 100 Venturi Mask 14.0 55 11/27/16 12:00 90 11/27/16 12:00 99.6 92 30 90/56 100 Non-Rebreather 15.0 100 Intake and Output 11/27/16 11/28/16 19:00 07:00 Intake Total 675 ml 860.0 ml Output Total 1520 ml 1020 ml Balance -845 ml -160.0 ml Intake IV Total 675 ml 860.0 ml Output Urine Total 1220 ml 920 ml Gastric Drainage Total 300 ml 100 ml # Bowel Movements 1 Laboratory Tests 11/28/16 04:30: White Blood Count 18.9H, Red Blood Count 3.64L, Hemoglobin 11.1L, Hematocrit 36.1L, Mean Corpuscular Volume 99, Mean Corpuscular Hemoglobin 30.6, Mean Corpuscular Hemoglobin Concent 30.9L, Red Cell Distribution Width 14.7, Platelet Count 186, Mean Platelet Volume 8.8, Neutrophils (%) (Auto) , Lymphocytes (%) (Auto) , Monocytes (%) (Auto) , Eosinophils (%) (Auto) , Basophils (%) (Auto) , Neutrophils % (Manual) [Pending], Lymphocytes % (Manual) [Pending], Platelet Estimate [Pending], Platelet Morphology [Pending], Prothrombin Time 17.5H, Prothromb Time International Ratio 1.7H, Activated Partial Thromboplast Time 39H, Sodium Level 158H, Potassium Level 4.0, Chloride Level 117H, Carbon Dioxide Level 27, Anion Gap 14, Blood Urea Nitrogen 76H, Creatinine 2.4H, Estimat Glomerular Filtration Rate , Glucose Level 151H, Hemoglobin A1c 7.0H, Uric Acid 8.0H, Calcium Level 8.4L, Phosphorus Level 3.3, Magnesium Level 2.8H, Total Bilirubin 1.2, Direct Bilirubin 0.5H, Gamma Glutamyl Transpeptidase 392H, Aspartate Amino Transf (AST/SGOT) 109H, Alanine Aminotransferase (ALT/SGPT) 155H, Alkaline Phosphatase 215H, Total Creatine Kinase 123, C-Reactive Protein, Quantitative 32.1H, Pro-B-Type Natriuretic Peptide 777H, Total Protein 6.5L, Albumin 2.3L, Globulin 4.2, Albumin/Globulin Ratio 0.5L, Triglycerides Level 205H, Cholesterol Level 94, LDL Cholesterol 48L , HDL Cholesterol 5, Cholesterol/HDL Ratio 18.8H, Lipase 71H, Thyroid Stimulating Hormone (TSH) 0.225L, Vancomycin Level Trough 14.9H 11/28/16 09:55: Arterial Blood pH 7.413, Arterial Blood Partial Pressure CO2 39.4, Arterial Blood Partial Pressure O2 79.2, Arterial Blood HCO3 24.6, Arterial Blood Oxygen Saturation 95.2, Arterial Blood Base Excess 0.1, Carlos Test Positive Height (Feet): 5 Height (Inches): 7.00 Weight (Pounds): 221 General Appearance: mild distress Neck: stiff neck Cardiovascular: tachycardia Respiratory/Chest: decreased breath sounds Abdomen: soft, other - distended Objective other physical exam not changed ALONDRA FULTON Nov 28, 2016 11:13
[2016-11-28 11:15] LABS: ANISOCYTOSIS 1+; BAND NEUTROPHILS % (MANUAL) 4 % (0-8); BASOPHILS % (MANUAL) 0 % (0-2); EOSINOPHILS % (MANUAL) 1 % (0-3); HYPOCHROMASIA 1+; LYMPHOCYTES % (MANUAL) 9 % (20-45); NEUTROPHILS % (MANUAL) 84 % (45-75); PLATELET ESTIMATE ADEQUATE; PLATELET MORPHOLOGY NORMAL; TOTAL CELLS COUNTED 100
--- NOTE | 2016-11-28 11:46 | General Progress Note ---
Progress Note Progress Note Surgery: patient seen and examined at bedside. Limited given medical condition and mental status. Low grade fevers, worsening leukocytosis, improve lipase, improved lft's. 76 M sepsis, bad pancreatitis as seen on CT. -Continue current care and management -No surgical intervention necessary at this time. -Continue supportive care for pancreatitis. -Will still need MRCP once stable. Ozzie Flynn Nov 28, 2016 11:46
[2016-11-28] MEDS ORDERED: NovoLOG Insulin Flexpen SUBQ SCH (12:00)
--- NOTE | 2016-11-28 12:01 | Diagnostic Imaging Report ---
Indication: DYSPNEA Technique: One view of the chest Comparison: 11/27/2016 Findings: Patient's chin obscures the upper mediastinum the heart is enlarged. There is bilateral basilar atelectasis. There are degenerative changes of the left shoulder. Findings are unchanged Impression: Unchanged, over one day, findings as above.
--- NOTE | 2016-11-28 13:16 | General Progress Note ---
Assessment/Plan Problem List: (1) Hyperglycemia ICD Codes: R73.9 - Hyperglycemia, unspecified SNOMED: 12449199 (2) FABIOLA (acute kidney injury) ICD Codes: N17.9 - Acute kidney failure, unspecified SNOMED: 92951047 (3) Choledocholithiasis ICD Codes: K80.50 - Calculus of bile duct without cholangitis or cholecystitis without obstruction SNOMED: 722787538 (4) Pressure ulcer ICD Codes: L89.90 - Pressure ulcer SNOMED: 071551898 (5) Fever ICD Codes: R50.9 - Fever SNOMED: 039122265 (6) Anemia ICD Codes: D64.9 - Anemia SNOMED: 709371217 (7) Cellulitis ICD Codes: L03.90 - Cellulitis SNOMED: 822861566 (8) Seizure disorder ICD Codes: G40.909 - Seizure disorder SNOMED: 372902623 (9) Sepsis ICD Codes: A41.9 - Sepsis, unspecified organism SNOMED: 72126739 Qualifiers: Qualified Codes: A41.9 - Sepsis, unspecified organism (10) Venous stasis ulcers ICD Codes: I83.009 - Venous stasis ulcers SNOMED: 602027203 (11) Bilateral lower extremity edema (12) Dementia ICD Codes: F03.90 - Unspecified dementia without behavioral disturbance SNOMED: 73876516 Qualifiers: Qualified Codes: F01.50 - Vascular dementia without behavioral disturbance (13) Coffee ground vomiting ICD Codes: K92.0 - Hematemesis SNOMED: 14769679 (14) Leukocytosis ICD Codes: D72.829 - Elevated white blood cell count, unspecified SNOMED: 892874764, 754566137 (15) UTI (urinary tract infection) ICD Codes: N39.0 - Urinary tract infection, site not specified SNOMED: 38923181 Status: progressing Assessment/Plan dka resolved stone passed maybe? afebrile clinically improving sepsis gi bleed stable Subjective ROS Limited/Unobtainable: Yes Constitutional: Reports: no symptoms Allergies: Coded Allergies: No Known Allergies (Verified , 12/27/08) Objective Last 24 Hour Vital Signs Date Time Temp Pulse Resp B/P Pulse Ox O2 Delivery O2 Flow Rate FiO2 11/28/16 12:00 89 11/28/16 12:00 98.0 89 20 110/72 99 Venturi Mask 14.0 55 11/28/16 11:00 90 20 109/65 100 Venturi Mask 14.0 55 11/28/16 10:00 88 21 101/56 99 Venturi Mask 14.0 55 11/28/16 09:10 99.0 11/28/16 09:00 89 25 115/62 100 Venturi Mask 14.0 55 11/28/16 08:00 98.0 90 25 104/45 100 Venturi Mask 14.0 55 11/28/16 08:00 90 11/28/16 07:24 Venturi Mask 15.0 55 11/28/16 07:24 100 Venturi Mask 15.0 55 11/28/16 07:23 94 20 Venturi Mask 15.0 55 11/28/16 07:00 94 29 110/50 98 Venturi Mask 14.0 55 11/28/16 06:00 89 29 108/54 98 Venturi Mask 14.0 55 11/28/16 05:00 88 28 112/60 98 Venturi Mask 14.0 55 11/28/16 04:00 89 11/28/16 04:00 90 28 103/61 98 Venturi Mask 14.0 55 11/28/16 03:00 91 25 88/54 97 Venturi Mask 14.0 55 11/28/16 02:00 90 26 96/56 98 Venturi Mask 14.0 55 11/28/16 01:00 93 28 98/53 97 Venturi Mask 14.0 55 11/28/16 00:00 93 11/28/16 00:00 99.0 92 24 102/46 95 Venturi Mask 14.0 55 92 11/27/16 23:00 93 16 86/54 100 Venturi Mask 14.0 55 93 11/27/16 22:00 92 26 97/60 96 Venturi Mask 55 11/27/16 21:00 95 27 97/56 96 Venturi Mask 14.0 55 11/27/16 20:00 98.4 96 26 90/58 93 Venturi Mask 14.0 55 11/27/16 20:00 96 11/27/16 19:27 Venturi Mask 15.0 55 11/27/16 19:26 95 Venturi Mask 15.0 55 11/27/16 19:25 97 20 Venturi Mask 15.0 55 11/27/16 19:00 100 16 103/45 100 Venturi Mask 14.0 55 11/27/16 18:00 92 16 109/48 94 Venturi Mask 14.0 55 11/27/16 17:00 97 16 100/49 95 Venturi Mask 14.0 55 11/27/16 16:00 98.2 84 16 142/46 100 Venturi Mask 14.0 55 11/27/16 16:00 90 11/27/16 15:00 99.2 94 28 107/58 100 Venturi Mask 14.0 55 11/27/16 14:00 92 27 106/61 100 Venturi Mask 14.0 55 Intake and Output 11/27/16 11/28/16 19:00 07:00 Intake Total 675 ml 860.0 ml Output Total 1520 ml 1020 ml Balance -845 ml -160.0 ml Intake IV Total 675 ml 860.0 ml Output Urine Total 1220 ml 920 ml Gastric Drainage Total 300 ml 100 ml # Bowel Movements 1 Laboratory Tests 11/28/16 04:30: White Blood Count 18.9H, Red Blood Count 3.64L, Hemoglobin 11.1L, Hematocrit 36.1L, Mean Corpuscular Volume 99, Mean Corpuscular Hemoglobin 30.6, Mean Corpuscular Hemoglobin Concent 30.9L, Red Cell Distribution Width 14.7, Platelet Count 186, Mean Platelet Volume 8.8, Neutrophils (%) (Auto) , Lymphocytes (%) (Auto) , Monocytes (%) (Auto) , Eosinophils (%) (Auto) , Basophils (%) (Auto) , Differential Total Cells Counted 100, Neutrophils % ( Manual) 84H, Lymphocytes % (Manual) 9L, Monocytes % (Manual) 2, Eosinophils % ( Manual) 1, Basophils % (Manual) 0, Band Neutrophils 4, Platelet Estimate Adequate, Platelet Morphology Normal, Hypochromasia 1+, Anisocytosis 1+, Prothrombin Time 17.5H, Prothromb Time International Ratio 1.7H, Activated Partial Thromboplast Time 39H, Sodium Level 158H, Potassium Level 4.0, Chloride Level 117H, Carbon Dioxide Level 27, Anion Gap 14, Blood Urea Nitrogen 76H, Creatinine 2.4H, Estimat Glomerular Filtration Rate , Glucose Level 151H, Hemoglobin A1c 7.0H, Uric Acid 8.0H, Calcium Level 8.4L, Phosphorus Level 3.3, Magnesium Level 2.8H, Total Bilirubin 1.2, Direct Bilirubin 0.5H, Gamma Glutamyl Transpeptidase 392H, Aspartate Amino Transf (AST/SGOT) 109H, Alanine Aminotransferase (ALT/SGPT) 155H, Alkaline Phosphatase 215H, Total Creatine Kinase 123, C-Reactive Protein, Quantitative 32.1H, Pro-B-Type Natriuretic Peptide 777H, Total Protein 6.5L, Albumin 2.3L, Globulin 4.2, Albumin/Globulin Ratio 0.5L, Triglycerides Level 205H, Cholesterol Level 94, LDL Cholesterol 48L , HDL Cholesterol 5, Cholesterol/HDL Ratio 18.8H, Lipase 71H, Thyroid Stimulating Hormone (TSH) 0.225L, Vancomycin Level Trough 14.9H 11/28/16 09:55: Arterial Blood pH 7.413, Arterial Blood Partial Pressure CO2 39.4, Arterial Blood Partial Pressure O2 79.2, Arterial Blood HCO3 24.6, Arterial Blood Oxygen Saturation 95.2, Arterial Blood Base Excess 0.1, Carlos Test Positive Height (Feet): 5 Height (Inches): 7.00 Weight (Pounds): 221 EENT: PERRL/EOMI Neck: supple Cardiovascular: normal rate Respiratory/Chest: lungs clear Abdomen: soft Aliza Faria MD Nov 28, 2016 13:16
--- NOTE | 2016-11-28 13:41 | GI Progress Note ---
Assessment/Plan Problems: (1) Coffee ground vomiting ICD Codes: K92.0 - Hematemesis SNOMED: 02774037 (2) Acute pancreatitis ICD Codes: K85.90 - Acute pancreatitis without necrosis or infection, unspecified SNOMED: 190711553 Qualifiers: Qualified Codes: K85.10 - Biliary acute pancreatitis without necrosis or infection (3) Anemia ICD Codes: D64.9 - Anemia SNOMED: 340711917 (4) Choledocholithiasis ICD Codes: K80.50 - Calculus of bile duct without cholangitis or cholecystitis without obstruction SNOMED: 361825668 (5) Sepsis ICD Codes: A41.9 - Sepsis, unspecified organism SNOMED: 87605294 Qualifiers: Qualified Codes: A41.9 - Sepsis, unspecified organism (6) Gallstone pancreatitis ICD Codes: K85.10 - Biliary acute pancreatitis without necrosis or infection SNOMED: 01009838 Status: unchanged Status Narrative Discussed with Dr. Wilson. Assessment/Plan APCT reviewed >> Cholelithiasis. Dilated common bile duct. Etiology of this is uncertain raises concern for downstream obstruction by an occult stone. This also raises possibility that the above findings could be due to gallstone pancreatitis. fu surgical recs >> No surgery planned at this time. MRCP to evaluate CBD dilation/gallstone pancreatitis, will consider ERCP post results ppi BID monitor H&H, transfuse prn monitor LFTs >> downtrending hold GTFs, maintain NPO + IVFs repeat amylase/lipase >> downtrend fu labs correct coagulopathy Subjective Subjective limited Objective Last 24 Hour Vital Signs Date Time Temp Pulse Resp B/P Pulse Ox O2 Delivery O2 Flow Rate FiO2 11/28/16 12:00 89 11/28/16 12:00 98.0 89 20 110/72 99 Venturi Mask 14.0 55 11/28/16 11:00 90 20 109/65 100 Venturi Mask 14.0 55 11/28/16 10:00 88 21 101/56 99 Venturi Mask 14.0 55 11/28/16 09:10 99.0 11/28/16 09:00 89 25 115/62 100 Venturi Mask 14.0 55 11/28/16 08:00 98.0 90 25 104/45 100 Venturi Mask 14.0 55 11/28/16 08:00 90 11/28/16 07:24 Venturi Mask 15.0 55 11/28/16 07:24 100 Venturi Mask 15.0 55 11/28/16 07:23 94 20 Venturi Mask 15.0 55 11/28/16 07:00 94 29 110/50 98 Venturi Mask 14.0 55 11/28/16 06:00 89 29 108/54 98 Venturi Mask 14.0 55 11/28/16 05:00 88 28 112/60 98 Venturi Mask 14.0 55 11/28/16 04:00 89 11/28/16 04:00 90 28 103/61 98 Venturi Mask 14.0 55 11/28/16 03:00 91 25 88/54 97 Venturi Mask 14.0 55 11/28/16 02:00 90 26 96/56 98 Venturi Mask 14.0 55 11/28/16 01:00 93 28 98/53 97 Venturi Mask 14.0 55 11/28/16 00:00 93 11/28/16 00:00 99.0 92 24 102/46 95 Venturi Mask 14.0 55 92 11/27/16 23:00 93 16 86/54 100 Venturi Mask 14.0 55 93 11/27/16 22:00 92 26 97/60 96 Venturi Mask 55 11/27/16 21:00 95 27 97/56 96 Venturi Mask 14.0 55 11/27/16 20:00 98.4 96 26 90/58 93 Venturi Mask 14.0 55 11/27/16 20:00 96 11/27/16 19:27 Venturi Mask 15.0 55 11/27/16 19:26 95 Venturi Mask 15.0 55 11/27/16 19:25 97 20 Venturi Mask 15.0 55 11/27/16 19:00 100 16 103/45 100 Venturi Mask 14.0 55 11/27/16 18:00 92 16 109/48 94 Venturi Mask 14.0 55 11/27/16 17:00 97 16 100/49 95 Venturi Mask 14.0 55 11/27/16 16:00 98.2 84 16 142/46 100 Venturi Mask 14.0 55 11/27/16 16:00 90 11/27/16 15:00 99.2 94 28 107/58 100 Venturi Mask 14.0 55 11/27/16 14:00 92 27 106/61 100 Venturi Mask 14.0 55 Intake and Output 11/27/16 11/28/16 19:00 07:00 Intake Total 675 ml 860.0 ml Output Total 1520 ml 1020 ml Balance -845 ml -160.0 ml Intake IV Total 675 ml 860.0 ml Output Urine Total 1220 ml 920 ml Gastric Drainage Total 300 ml 100 ml # Bowel Movements 1 Laboratory Tests Test 11/28/16 04:30 11/28/16 09:55 White Blood Count 18.9 K/UL (4.8-10.8) H Red Blood Count 3.64 M/UL (4.70-6.10) L Hemoglobin 11.1 G/DL (14.2-18.0) L Hematocrit 36.1 % (42.0-52.0) L Mean Corpuscular Volume 99 FL (80-99) Mean Corpuscular Hemoglobin 30.6 PG (27.0-31.0) Mean Corpuscular Hemoglobin Concent 30.9 G/DL (32.0-36.0) L Red Cell Distribution Width 14.7 % (11.6-14.8) Platelet Count 186 K/UL (150-450) Mean Platelet Volume 8.8 FL (6.5-10.1) Neutrophils (%) (Auto) % (45.0-75.0) Lymphocytes (%) (Auto) % (20.0-45.0) Monocytes (%) (Auto) % (1.0-10.0) Eosinophils (%) (Auto) % (0.0-3.0) Basophils (%) (Auto) % (0.0-2.0) Differential Total Cells Counted 100 Neutrophils % (Manual) 84 % (45-75) H Lymphocytes % (Manual) 9 % (20-45) L Monocytes % (Manual) 2 % (1-10) Eosinophils % (Manual) 1 % (0-3) Basophils % (Manual) 0 % (0-2) Band Neutrophils 4 % (0-8) Platelet Estimate Adequate Platelet Morphology Normal Hypochromasia 1+ Anisocytosis 1+ Prothrombin Time 17.5 SEC (9.30-11.50) H Prothromb Time International Ratio 1.7 (0.9-1.1) H Activated Partial Thromboplast Time 39 SEC (23-33) H Sodium Level 158 mEQ/L (135-145) H Potassium Level 4.0 mEQ/L (3.4-4.9) Chloride Level 117 mEQ/L (98-107) H Carbon Dioxide Level 27 mEQ/L (20-30) Anion Gap 14 (5-15) Blood Urea Nitrogen 76 mg/dL (7-23) H Creatinine 2.4 mg/dL (0.7-1.2) H Estimat Glomerular Filtration Rate mL/min (>60) Glucose Level 151 mg/dL (74-106) H Hemoglobin A1c 7.0 % (< 6.0) H Uric Acid 8.0 mg/dL (3.0-7.5) H Calcium Level 8.4 mg/dL (8.6-10.2) L Phosphorus Level 3.3 mg/dL (2.5-4.8) Magnesium Level 2.8 mg/dL (1.7-2.5) H Total Bilirubin 1.2 mg/dL (0.0-1.2) Direct Bilirubin 0.5 mg/dL (0.1-0.3) H Gamma Glutamyl Transpeptidase 392 U/L (8-61) H Aspartate Amino Transf (AST/SGOT) 109 U/L (5-40) H Alanine Aminotransferase (ALT/SGPT) 155 U/L (3-41) H Alkaline Phosphatase 215 U/L (40-129) H Total Creatine Kinase 123 U/L (38-174) C-Reactive Protein, Quantitative 32.1 mg/dL (< 0.5) H Pro-B-Type Natriuretic Peptide 777 pg/mL (0-450) H Total Protein 6.5 g/dL (6.6-8.7) L Albumin 2.3 g/dL (3.5-5.2) L Globulin 4.2 g/dL Albumin/Globulin Ratio 0.5 (1.0-2.7) L Triglycerides Level 205 mg/dL (< 150) H Cholesterol Level 94 mg/dL (< 200) LDL Cholesterol 48 mg/dL (60-99) L HDL Cholesterol 5 mg/dL (> 60) Cholesterol/HDL Ratio 18.8 (3.3-4.4) H Lipase 71 U/L (< 60) H Thyroid Stimulating Hormone (TSH) 0.225 uIU/mL (0.300-4.500) Vancomycin Level Trough 14.9 ug/mL (5.0-12.0) H Arterial Blood pH 7.413 (7.350-7.450) Arterial Blood Partial Pressure CO2 39.4 mmHg (35.0-45.0) Arterial Blood Partial Pressure O2 79.2 mmHg (75.0-100.0) Arterial Blood HCO3 24.6 mmol/L (22.0-26.0) Arterial Blood Oxygen Saturation 95.2 % (92.0-98.0) Arterial Blood Base Excess 0.1 Carlos Test Positive Height (Feet): 5 Height (Inches): 7.00 Weight (Pounds): 221 General Appearance: alert Cardiovascular: normal rate Respiratory/Chest: other - venturi mask Abdominal Exam: normal bowel sounds, non tender, soft Radha Ruiz N.P. Nov 28, 2016 13:41
[2016-11-28] MEDS ORDERED: Nitroglycerin Subl 0.4mg tab (Bottle Of 25) SL PRN (15:00)
[2016-11-28] MEDS ORDERED: DuoNeb 0.5-3(2.5)mg/3ml neb HHN PRN (15:15)
--- NOTE | 2016-11-28 15:53 | Infectious Diseases Prog Note ---
Assessment/Plan Problems: (1) HCAP (healthcare-associated pneumonia) Assessment & Plan: continue vancomycin and zosyn, monitor CXR, send sputum for culture, pulmonary is following (2) UTI (urinary tract infection) Assessment & Plan: already on zosyn, await urine culture (3) Sepsis Assessment & Plan: with coag negative staph which is most likely contaminant , and Citrobacter diversus which is real , source most likely GI or tract . on zosyn and vancomycin , needs source control to for CBD obstruction with possible ERCP. (4) Choledocholithiasis Assessment & Plan: possible ascending cholangitis ,continue zosyn and vancomycin , recommend MRCP for further evaluation , and ERCP for source control , GI is following (5) FABIOLA (acute kidney injury) Assessment & Plan: due to sepsis, continue hydration, avoid nephrotoxic meds (6) Hyperglycemia Assessment & Plan: due to pancreatitis , continue insulin , and titrate to keep glucose level between 80-120 (7) Coagulopathy Assessment & Plan: due to coumadin, on hold, tranfuse FFP to revers INR, cardiology is following (8) Acute pancreatitis Assessment & Plan: complicated with intraabdominal phlegmon , will continue wide spectrum antibiotics therapy, may need ERCP for source control to relief CBD if really obstructed. (9) Coffee ground vomiting Assessment & Plan: due to coagulopathy, from coumadin, monitor H/H ,transfuse blood as needed , give FFP to reverse INR. GI and hematology are following (10) Common bile duct (CBD) obstruction Assessment & Plan: recommend MRCP for further evaluation and ERCP to remove the obstruction once hemodynamically stable. GI is following Subjective ROS Limited/Unobtainable: Yes Allergies: Coded Allergies: No Known Allergies (Verified , 12/27/08) Subjective he is on Ventimask for high flow oxygen , doesn't follow commands . nonverbal, not in distress Objective Vital Signs Last 24 Hour Vital Signs Date Time Temp Pulse Resp B/P Pulse Ox O2 Delivery O2 Flow Rate FiO2 11/28/16 12:00 89 11/28/16 12:00 98.0 89 20 110/72 99 Venturi Mask 14.0 55 11/28/16 11:00 90 20 109/65 100 Venturi Mask 14.0 55 11/28/16 10:00 88 21 101/56 99 Venturi Mask 14.0 55 11/28/16 09:10 99.0 11/28/16 09:00 89 25 115/62 100 Venturi Mask 14.0 55 11/28/16 08:00 98.0 90 25 104/45 100 Venturi Mask 14.0 55 11/28/16 08:00 90 11/28/16 07:24 Venturi Mask 15.0 55 11/28/16 07:24 100 Venturi Mask 15.0 55 11/28/16 07:23 94 20 Venturi Mask 15.0 55 11/28/16 07:00 94 29 110/50 98 Venturi Mask 14.0 55 11/28/16 06:00 89 29 108/54 98 Venturi Mask 14.0 55 11/28/16 05:00 88 28 112/60 98 Venturi Mask 14.0 55 11/28/16 04:00 89 11/28/16 04:00 90 28 103/61 98 Venturi Mask 14.0 55 11/28/16 03:00 91 25 88/54 97 Venturi Mask 14.0 55 11/28/16 02:00 90 26 96/56 98 Venturi Mask 14.0 55 11/28/16 01:00 93 28 98/53 97 Venturi Mask 14.0 55 11/28/16 00:00 93 11/28/16 00:00 99.0 92 24 102/46 95 Venturi Mask 14.0 55 92 11/27/16 23:00 93 16 86/54 100 Venturi Mask 14.0 55 93 11/27/16 22:00 92 26 97/60 96 Venturi Mask 55 11/27/16 21:00 95 27 97/56 96 Venturi Mask 14.0 55 11/27/16 20:00 98.4 96 26 90/58 93 Venturi Mask 14.0 55 11/27/16 20:00 96 11/27/16 19:27 Venturi Mask 15.0 55 11/27/16 19:26 95 Venturi Mask 15.0 55 11/27/16 19:25 97 20 Venturi Mask 15.0 55 11/27/16 19:00 100 16 103/45 100 Venturi Mask 14.0 55 11/27/16 18:00 92 16 109/48 94 Venturi Mask 14.0 55 11/27/16 17:00 97 16 100/49 95 Venturi Mask 14.0 55 3/14/17 16:00 98.2 84 16 142/46 100 Venturi Mask 14.0 55 11/27/16 16:00 90 Height (Feet): 5 Height (Inches): 7.00 Weight (Pounds): 221 General Appearance: WD/WN, no acute distress HEENT: normocephalic, atraumatic, anicteric, mucous membranes moist Respiratory/Chest: chest wall non-tender, lungs clear, normal breath sounds, no respiratory distress, no accessory muscle use Cardiovascular: normal peripheral pulses, normal rate, regular rhythm Abdomen: normal bowel sounds, soft, non tender, no organomegaly, non distended , no mass Extremities: no cyanosis, no clubbing Skin: no rash, no lesions Microbiology Date/Time Source Procedure Growth Status 11/25/16 21:45 Blood Blood Culture - Final Citrobacter Diversus Complete 11/25/16 21:39 Blood Blood Culture - Preliminary Staphylococcus Sp Coag Neg Resulted 11/27/16 11:50 Other Fluid Gram Stain - Final Resulted 11/27/16 11:50 Other Fluid Aerobic Culture - Preliminary NO GROWTH Resulted 11/27/16 11:50 Other Fluid Anaerobic Culture Pending Resulted 11/27/16 07:00 Sputum Gram Stain - Final Resulted 11/27/16 07:00 Sputum Sputum Culture - Preliminary NORMAL UPPER RESPIRATORY DEBBIE AT 24 ... Resulted 11/25/16 23:30 Nasal Nares MRSA Culture - Final NO METHICILLIN RESISTANT STAPH AUREUS... Complete 11/25/16 23:30 Rectum VRE Culture - Final NO VANCOMYCIN RESISTANT ENTEROCOCCUS ... Complete Laboratory Tests Test 11/28/16 04:30 11/28/16 09:55 White Blood Count 18.9 K/UL (4.8-10.8) H Red Blood Count 3.64 M/UL (4.70-6.10) L Hemoglobin 11.1 G/DL (14.2-18.0) L Hematocrit 36.1 % (42.0-52.0) L Mean Corpuscular Volume 99 FL (80-99) Mean Corpuscular Hemoglobin 30.6 PG (27.0-31.0) Mean Corpuscular Hemoglobin Concent 30.9 G/DL (32.0-36.0) L Red Cell Distribution Width 14.7 % (11.6-14.8) Platelet Count 186 K/UL (150-450) Mean Platelet Volume 8.8 FL (6.5-10.1) Neutrophils (%) (Auto) % (45.0-75.0) Lymphocytes (%) (Auto) % (20.0-45.0) Monocytes (%) (Auto) % (1.0-10.0) Eosinophils (%) (Auto) % (0.0-3.0) Basophils (%) (Auto) % (0.0-2.0) Differential Total Cells Counted 100 Neutrophils % (Manual) 84 % (45-75) H Lymphocytes % (Manual) 9 % (20-45) L Monocytes % (Manual) 2 % (1-10) Eosinophils % (Manual) 1 % (0-3) Basophils % (Manual) 0 % (0-2) Band Neutrophils 4 % (0-8) Platelet Estimate Adequate Platelet Morphology Normal Hypochromasia 1+ Anisocytosis 1+ Prothrombin Time 17.5 SEC (9.30-11.50) H Prothromb Time International Ratio 1.7 (0.9-1.1) H Activated Partial Thromboplast Time 39 SEC (23-33) H Sodium Level 158 mEQ/L (135-145) H Potassium Level 4.0 mEQ/L (3.4-4.9) Chloride Level 117 mEQ/L (98-107) H Carbon Dioxide Level 27 mEQ/L (20-30) Anion Gap 14 (5-15) Blood Urea Nitrogen 76 mg/dL (7-23) H Creatinine 2.4 mg/dL (0.7-1.2) H Estimat Glomerular Filtration Rate mL/min (>60) Glucose Level 151 mg/dL (74-106) H Hemoglobin A1c 7.0 % (< 6.0) H Uric Acid 8.0 mg/dL (3.0-7.5) H Calcium Level 8.4 mg/dL (8.6-10.2) L Phosphorus Level 3.3 mg/dL (2.5-4.8) Magnesium Level 2.8 mg/dL (1.7-2.5) H Total Bilirubin 1.2 mg/dL (0.0-1.2) Direct Bilirubin 0.5 mg/dL (0.1-0.3) H Gamma Glutamyl Transpeptidase 392 U/L (8-61) H Aspartate Amino Transf (AST/SGOT) 109 U/L (5-40) H Alanine Aminotransferase (ALT/SGPT) 155 U/L (3-41) H Alkaline Phosphatase 215 U/L (40-129) H Total Creatine Kinase 123 U/L (38-174) C-Reactive Protein, Quantitative 32.1 mg/dL (< 0.5) H Pro-B-Type Natriuretic Peptide 777 pg/mL (0-450) H Total Protein 6.5 g/dL (6.6-8.7) L Albumin 2.3 g/dL (3.5-5.2) L Globulin 4.2 g/dL Albumin/Globulin Ratio 0.5 (1.0-2.7) L Triglycerides Level 205 mg/dL (< 150) H Cholesterol Level 94 mg/dL (< 200) LDL Cholesterol 48 mg/dL (60-99) L HDL Cholesterol 5 mg/dL (> 60) Cholesterol/HDL Ratio 18.8 (3.3-4.4) H Lipase 71 U/L (< 60) H Thyroid Stimulating Hormone (TSH) 0.225 uIU/mL (0.300-4.500) Vancomycin Level Trough 14.9 ug/mL (5.0-12.0) H Arterial Blood pH 7.413 (7.350-7.450) Arterial Blood Partial Pressure CO2 39.4 mmHg (35.0-45.0) Arterial Blood Partial Pressure O2 79.2 mmHg (75.0-100.0) Arterial Blood HCO3 24.6 mmol/L (22.0-26.0) Arterial Blood Oxygen Saturation 95.2 % (92.0-98.0) Arterial Blood Base Excess 0.1 Carlos Test Positive Current Medications Medications (Trade) Dose Ordered Sig/Jamaal Route PRN Reason Start Time Stop Time Status Last Admin Dose Admin Acetaminophen (Tylenol) 650 mg Q4H PRN ORAL Fever 11/28/16 15:15 12/28/16 15:14 UNV Albuterol/ Ipratropium (DuoNeb 0.5-3(2.5)mg/3ml) 3 ml Q4H PRN HHN Shortness of Breath 11/28/16 15:15 12/03/16 15:14 UNV Clonidine HCl (Catapres) 0.1 mg Q8H PRN GT sbp> 160 11/28/16 15:15 12/28/16 15:14 UNV Dextrose 1,000 ml @ 75 mls/hr [id number] IV 11/28/16 15:00 12/28/16 14:59 UNV Dextrose (Dextrose 50%) STAT PRN IV Hypoglycemia 11/29/16 06:15 12/29/16 06:14 UNV Insulin Aspart (NovoLOG) EVERY 6 HOURS SUBQ 11/28/16 18:00 12/28/16 17:59 UNV Insulin Detemir (Levemir) 8 units Q12HR SUBQ 11/28/16 21:00 12/28/16 20:59 UNV Levofloxacin 50 ml @ 50 mls/hr Q48H IVPB 11/29/16 17:00 12/06/16 16:59 UNV Lorazepam (Ativan 2mg/ml 1ml) 2 mg Q2H PRN IV agitation 11/28/16 15:15 12/05/16 15:14 UNV Morphine Sulfate (Morphine Sulfate) 4 mg Q4H PRN IVP Severe Pain (Pain Scale 7-10) 11/28/16 15:15 12/05/16 15:14 UNV Nitroglycerin (Ntg) 0.4 mg Q5M PRN SL Prn Chest Pain 11/28/16 15:00 12/28/16 14:59 UNV Ondansetron HCl (Zofran) 4 mg Q6H PRN IVP Nausea & Vomiting 11/28/16 17:15 12/28/16 17:14 UNV Pantoprazole (Protonix) 40 mg BID IVP 11/28/16 18:00 12/28/16 17:59 UNV Piperacillin Sod/ Tazobactam Sod/ Sodium Chloride (Zosyn/Sodium Chloride) 110 ml @ 27.5 mls/hr Q12HR@0000,1200 IVPB 11/29/16 00:00 12/06/16 00:00 UNV Polyethylene Glycol (Miralax) 17 gm DAILYPRN PRN ORAL Constipation 11/28/16 23:15 12/28/16 23:14 UNV Vancomycin HCl (Vanco rx to dose) 1 ea DAILY PRN MISC Per rx protocol 11/29/16 09:00 12/29/16 08:59 UNV Ariana Acevedo M.D. 15, 2017 15:53
[2016-11-28] MEDS ORDERED: Miralax 17gm pkt ORAL PRN (19:00)
[2016-11-29] VITALS: BP 120/68
[2016-11-29] MEDS: NovoLOG Insulin Flexpen SUBQ SCH ×4 (00:39→18:00)
[2016-11-29] MEDS: Piperacillin/Tazobactam 3.375 GM in NS 110 ML IVPB SCH ×2 (00:48→12:40)
[2016-11-29] MEDS: LORazepam Inj 2mg/ml 1ml IV PRN ×2 (02:53→06:29)
[2016-11-29 04:00] VITALS: BP 122/75
[2016-11-29 05:49] LABS: MEAN CORPUSCULAR HGB CONC 31.2 G/DL (32.0-36.0); MEAN CORPUSCULAR VOLUME 99 FL (80-99); MEAN PLATELET VOLUME 8.4 FL (6.5-10.1); PLATELET COUNT 175 K/UL (150-450); RED CELL DISTRIBUTION WIDTH 14.5 % (11.6-14.8); WHITE BLOOD COUNT 16.5 K/UL (4.8-10.8)
[2016-11-29 06:27] LABS: ALANINE AMINOTRANSFERASE 94 U/L (3-41); ALBUMIN/GLOBULIN RATIO 0.6 (1.0-2.7); ANION GAP 13 (5-15); ASPARTATE AMINO TRANSFERASE 61 U/L (5-40); CALCIUM 8.3 mg/dL (8.6-10.2); CARBON DIOXIDE 28 mEQ/L (20-30); CHLORIDE 117 mEQ/L (98-107); HEMOLYSIS 0; MAGNESIUM 2.7 mg/dL (1.7-2.5); PHOSPHORUS 2.8 mg/dL (2.5-4.8); POTASSIUM 3.8 mEQ/L (3.4-4.9); SODIUM 158 mEQ/L (135-145); TOTAL PROTEIN 6.2 g/dL (6.6-8.7)
[2016-11-29 07:09] LABS: ANISOCYTOSIS 1+; BAND NEUTROPHILS % (MANUAL) 0 % (0-8); BASOPHILS % (MANUAL) 0 % (0-2); EOSINOPHILS % (MANUAL) 1 % (0-3); HYPOCHROMASIA 1+; LYMPHOCYTES % (MANUAL) 5 % (20-45); NEUTROPHILS % (MANUAL) 90 % (45-75); PLATELET ESTIMATE ADEQUATE; PLATELET MORPHOLOGY NORMAL; TOTAL CELLS COUNTED 100
--- NOTE | 2016-11-29 07:13 | General Progress Note ---
Assessment/Plan Assessment/Plan ASSESSMENT: 1. Coagulopathy with supertherapeutic - now improved, can consider to restart coumadin 2. Anemia 2/2 chronic disease, is without major changes, hgb >10 3. Leukocytosis secondary to underlying infection with pancreatitis and elevated lipase. 4. A-fibrillation was on coumadin before 5. r/o gastrointestinal bleed. 6. Dysphagia. 7. Dementia. 8. Hyperglycemia. 9. Sepsis. RECS: 1. Monitor counts. 2. Transfuse as needed 3. Anemia w/u if hgb <10 4. Okay to restart coumadin if cleared by other services 5. Consider inr 2-3 once coumadin restarted 6. Antibiotics as needed. 7. Discussed with staff. 8. Continue PPI. Thank you, Abdifatah Ramirez MD Subjective Constitutional: Reports: no symptoms HEENT: Reports: no symptoms Cardiovascular: Reports: no symptoms Respiratory: Reports: no symptoms Gastrointestinal/Abdominal: Reports: no symptoms Genitourinary: Reports: no symptoms Neurologic/Psychiatric: Reports: no symptoms Endocrine: Reports: no symptoms Hematologic/Lymphatic: Reports: anemia Allergies: Coded Allergies: No Known Allergies (Verified , 12/27/08) Subjective stable, without events reported, no fevers, no chills Objective Last 24 Hour Vital Signs Date Time Temp Pulse Resp B/P Pulse Ox O2 Delivery O2 Flow Rate FiO2 11/29/16 04:00 98.1 80 18 122/75 95 Venturi Mask 55 11/29/16 00:00 93 11/29/16 00:00 98.2 86 20 120/68 95 Venturi Mask 55 11/28/16 20:00 97.9 89 19 109/51 95 Venturi Mask 55 11/28/16 20:00 89 11/28/16 19:09 Venturi Mask 14.0 55 11/28/16 19:09 95 Venturi Mask 14.0 55 11/28/16 19:09 89 20 Venturi Mask 14.0 55 11/28/16 16:00 97.5 82 18 120/70 99 Venturi Mask 5.0 11/28/16 16:00 89 11/28/16 12:00 89 11/28/16 12:00 98.0 89 20 110/72 99 Venturi Mask 14.0 55 11/28/16 11:00 90 20 109/65 100 Venturi Mask 14.0 55 11/28/16 10:00 88 21 101/56 99 Venturi Mask 14.0 55 11/28/16 09:10 99.0 11/28/16 09:00 89 25 115/62 100 Venturi Mask 14.0 55 11/28/16 08:00 98.0 90 25 104/45 100 Venturi Mask 14.0 55 11/28/16 08:00 90 11/28/16 07:24 Venturi Mask 15.0 55 11/28/16 07:24 100 Venturi Mask 15.0 55 11/28/16 07:23 94 20 Venturi Mask 15.0 55 Intake and Output 11/28/16 11/29/16 19:00 07:00 Intake Total 880.0 ml 757.5 ml Output Total 350 ml 1100 ml Balance 530.0 ml -342.5 ml Intake IV Total 880.0 ml 757.5 ml Output Urine Total 350 ml 1100 ml Gastric Drainage Total 0 ml Laboratory Tests 11/28/16 09:55: Arterial Blood pH 7.413, Arterial Blood Partial Pressure CO2 39.4, Arterial Blood Partial Pressure O2 79.2, Arterial Blood HCO3 24.6, Arterial Blood Oxygen Saturation 95.2, Arterial Blood Base Excess 0.1, Carlos Test Positive 11/29/16 04:00: White Blood Count 16.5H, Red Blood Count 3.40L, Hemoglobin 10.5L, Hematocrit 33.8L, Mean Corpuscular Volume 99, Mean Corpuscular Hemoglobin 31.0, Mean Corpuscular Hemoglobin Concent 31.2L, Red Cell Distribution Width 14.5, Platelet Count 175, Mean Platelet Volume 8.4, Neutrophils (%) (Auto) , Lymphocytes (%) (Auto) , Monocytes (%) (Auto) , Eosinophils (%) (Auto) , Basophils (%) (Auto) , Neutrophils % (Manual) [Pending], Lymphocytes % (Manual) [Pending], Platelet Estimate [Pending], Platelet Morphology [Pending], Sodium Level 158H, Potassium Level 3.8, Chloride Level 117H, Carbon Dioxide Level 28, Anion Gap 13, Blood Urea Nitrogen 59H, Creatinine 2.0H, Estimat Glomerular Filtration Rate , Glucose Level 152H, Calcium Level 8.3L, Phosphorus Level 2.8, Magnesium Level 2.7H, Total Bilirubin 1.0, Aspartate Amino Transf (AST/SGOT) 61H , Alanine Aminotransferase (ALT/SGPT) 94H, Alkaline Phosphatase 222H, Total Protein 6.2L, Albumin 2.5L, Globulin 3.7, Albumin/Globulin Ratio 0.6L Height (Feet): 5 Height (Inches): 7.00 Weight (Pounds): 221 General Appearance: no apparent distress EENT: TMs normal Neck: normal alignment Cardiovascular: regular rhythm Respiratory/Chest: normal breath sounds Abdomen: soft Extremities: non-tender Edema: 1+ Leg (L), 1+ Leg (R) Edema: mild edema Neurologic: alert Skin: warm/dry Abdifatah Ramirez Nov 29, 2016 07:13
[2016-11-29 08:00] VITALS: BP 125/54
[2016-11-29 09:41] LABS: ABG ALLEN TEST POSITIVE; ABG PCO2 45.1 mmHg (35.0-45.0)
[2016-11-29] MEDS: Pantoprazole Inj IVP SCH ×2 (09:57→18:45)
[2016-11-29] MEDS: Morphine Sulfate 4mg/ml Inj IVP PRN (09:57)
[2016-11-29] MEDS: Levemir Flexpen SUBQ SCH ×2 (10:00→22:03)
--- NOTE | 2016-11-29 11:58 | General Progress Note ---
Progress Note Progress Note T max 99.5. Pt is noncommunicative. Abdomen is distended and somewhat tense. LFTs are improving as is lipase. WBC was 16K today. His clinical picture is consistent with resolving gallstone pancreatitis. There is no need for surgical intervention at this time. He will need supportive care for now. An MRCP would be useful to rule out choleduocholithiasis. Judah Madison MD Nov 29, 2016 11:58
[2016-11-29 12:00] VITALS: BP 112/63
--- NOTE | 2016-11-29 12:14 | Pulmonology Progress Note ---
Assessment/Plan Problems: (1) Coffee ground vomiting (2) Coagulopathy (3) Sepsis (4) Acute pancreatitis (5) Limited mobility in bed (6) Feeding by G-tube (7) Choledocholithiasis (8) Dementia Assessment/Plan improving wbc decreasing amylase decreasing MRI of abdomen pending continue abx for bacteremia. may go to telemetry. Subjective ROS Limited/Unobtainable: Yes Interval Events: comfortable Allergies: Coded Allergies: No Known Allergies (Verified , 12/27/08) Objective Last 24 Hour Vital Signs Date Time Temp Pulse Resp B/P Pulse Ox O2 Delivery O2 Flow Rate FiO2 11/29/16 08:00 99.5 70 20 125/54 96 Venturi Mask 55 11/29/16 08:00 103 11/29/16 07:44 94 20 Venturi Mask 14.0 55 11/29/16 07:42 95 Venturi Mask 14.0 55 11/29/16 07:41 Venturi Mask 14.0 55 11/29/16 04:00 98.1 80 18 122/75 95 Venturi Mask 55 11/29/16 00:00 93 11/29/16 00:00 98.2 86 20 120/68 95 Venturi Mask 55 11/28/16 20:00 97.9 89 19 109/51 95 Venturi Mask 55 11/28/16 20:00 89 11/28/16 19:09 Venturi Mask 14.0 55 11/28/16 19:09 95 Venturi Mask 14.0 55 11/28/16 19:09 89 20 Venturi Mask 14.0 55 11/28/16 16:00 97.5 82 18 120/70 99 Venturi Mask 5.0 11/28/16 16:00 89 Intake and Output 11/28/16 11/29/16 19:00 07:00 Intake Total 880.0 ml 982.5 ml Output Total 350 ml 1100 ml Balance 530.0 ml -117.5 ml Intake IV Total 880.0 ml 982.5 ml Output Urine Total 350 ml 1100 ml Gastric Drainage Total 0 ml General Appearance: WD/WN HEENT: normocephalic, atraumatic, other Respiratory/Chest: chest wall non-tender, lungs clear Cardiovascular: normal peripheral pulses, normal rate Abdomen: other - peg Extremities: no cyanosis Skin: no rash 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 grossly normal, no motor/sensory deficits Microbiology Date/Time Source Procedure Growth Status 11/27/16 11:50 Other Fluid Gram Stain - Final Resulted 11/27/16 11:50 Other Fluid Aerobic Culture - Preliminary NO GROWTH Resulted 11/27/16 11:50 Other Fluid Anaerobic Culture Pending Resulted 11/27/16 07:00 Sputum Gram Stain - Final Complete 11/27/16 07:00 Sputum Sputum Culture - Final NORMAL UPPER RESPIRATORY DEBBIE PRESENT Complete Laboratory Tests 11/29/16 04:00: White Blood Count 16.5H, Red Blood Count 3.40L, Hemoglobin 10.5L, Hematocrit 33.8L, Mean Corpuscular Volume 99, Mean Corpuscular Hemoglobin 31.0, Mean Corpuscular Hemoglobin Concent 31.2L, Red Cell Distribution Width 14.5, Platelet Count 175, Mean Platelet Volume 8.4, Neutrophils (%) (Auto) , Lymphocytes (%) (Auto) , Monocytes (%) (Auto) , Eosinophils (%) (Auto) , Basophils (%) (Auto) , Differential Total Cells Counted 100, Neutrophils % ( Manual) 90H, Lymphocytes % (Manual) 5L, Monocytes % (Manual) 4, Eosinophils % ( Manual) 1, Basophils % (Manual) 0, Band Neutrophils 0, Platelet Estimate Adequate, Platelet Morphology Normal, Hypochromasia 1+, Anisocytosis 1+, Sodium Level 158H, Potassium Level 3.8, Chloride Level 117H, Carbon Dioxide Level 28, Anion Gap 13, Blood Urea Nitrogen 59H, Creatinine 2.0H, Estimat Glomerular Filtration Rate , Glucose Level 152H, Calcium Level 8.3L, Phosphorus Level 2.8, Magnesium Level 2.7H, Total Bilirubin 1.0, Aspartate Amino Transf (AST/SGOT) 61H , Alanine Aminotransferase (ALT/SGPT) 94H, Alkaline Phosphatase 222H, Total Protein 6.2L, Albumin 2.5L, Globulin 3.7, Albumin/Globulin Ratio 0.6L 11/29/16 09:20: Arterial Blood pH 7.420, Arterial Blood Partial Pressure CO2 45.1H, Arterial Blood Partial Pressure O2 60.3L, Arterial Blood HCO3 29.0H, Arterial Blood Oxygen Saturation 90.8L, Arterial Blood Base Excess 4.0, Carlos Test Positive Current Medications Medications (Trade) Dose Ordered Sig/Jamaal Route PRN Reason Start Time Stop Time Status Last Admin Dose Admin Acetaminophen (Tylenol) 650 mg Q4H PRN ORAL Fever 11/28/16 19:00 12/28/16 18:59 Albuterol/ Ipratropium (DuoNeb 0.5-3(2.5)mg/3ml) 3 ml Q4H PRN HHN Shortness of Breath 11/28/16 15:15 12/03/16 15:14 Clonidine HCl (Catapres) 0.1 mg Q8H PRN GT sbp> 160 11/28/16 15:15 12/28/16 15:14 Dextrose 1,000 ml @ 75 mls/hr [id number] IV 11/28/16 19:00 12/28/16 18:59 11/29/16 09:57 Dextrose (Dextrose 50%) STAT PRN IV Hypoglycemia 11/28/16 19:00 12/28/16 18:59 Insulin Aspart (NovoLOG) EVERY 6 HOURS SUBQ 11/28/16 19:00 12/28/16 18:59 11/29/16 06:13 Insulin Detemir (Levemir) 8 units Q12HR SUBQ 11/28/16 21:00 12/28/16 20:59 11/29/16 10:00 Levofloxacin 50 ml @ 50 mls/hr Q48H IVPB 11/29/16 20:00 12/06/16 19:59 Lorazepam (Ativan 2mg/ml 1ml) 2 mg Q2H PRN IV agitation 11/28/16 15:15 12/05/16 15:14 11/29/16 06:29 Morphine Sulfate (Morphine Sulfate) 4 mg Q4H PRN IVP Severe Pain (Pain Scale 7-10) 11/28/16 15:15 12/05/16 15:14 11/29/16 09:57 Nitroglycerin (Ntg) 0.4 mg Q5M PRN SL Prn Chest Pain 11/28/16 15:00 12/28/16 14:59 Ondansetron HCl (Zofran) 4 mg Q6H PRN IVP Nausea & Vomiting 11/28/16 17:15 12/28/16 17:14 Pantoprazole (Protonix) 40 mg BID IVP 11/28/16 19:00 12/28/16 18:59 11/29/16 09:57 Piperacillin Sod/ Tazobactam Sod/ Sodium Chloride (Zosyn/Sodium Chloride) 110 ml @ 27.5 mls/hr Q12HR@0000,1200 IVPB 11/29/16 00:00 12/06/16 00:00 11/29/16 00:48 Polyethylene Glycol (Miralax) 17 gm DAILYPRN PRN ORAL Constipation 11/28/16 19:00 12/28/16 18:59 Vancomycin HCl (Vanco rx to dose) 1 ea DAILY PRN MISC Per rx protocol 11/29/16 09:00 12/29/16 08:59 SONIA ALBERTS Nov 29, 2016 12:13
--- NOTE | 2016-11-29 12:16 | General Progress Note ---
Assessment/Plan Problem List: (1) Hyperglycemia ICD Codes: R73.9 - Hyperglycemia, unspecified SNOMED: 51659575 (2) FABIOLA (acute kidney injury) ICD Codes: N17.9 - Acute kidney failure, unspecified SNOMED: 88314911 (3) Choledocholithiasis ICD Codes: K80.50 - Calculus of bile duct without cholangitis or cholecystitis without obstruction SNOMED: 333819632 (4) Pressure ulcer ICD Codes: L89.90 - Pressure ulcer SNOMED: 447678756 (5) Fever ICD Codes: R50.9 - Fever SNOMED: 710236841 (6) Anemia ICD Codes: D64.9 - Anemia SNOMED: 463651387 (7) Cellulitis ICD Codes: L03.90 - Cellulitis SNOMED: 480942767 (8) Seizure disorder ICD Codes: G40.909 - Seizure disorder SNOMED: 398884359 (9) Sepsis ICD Codes: A41.9 - Sepsis, unspecified organism SNOMED: 81369259 Qualifiers: Qualified Codes: A41.9 - Sepsis, unspecified organism (10) Venous stasis ulcers ICD Codes: I83.009 - Venous stasis ulcers SNOMED: 421684160 (11) Bilateral lower extremity edema (12) Dementia ICD Codes: F03.90 - Unspecified dementia without behavioral disturbance SNOMED: 22881158 Qualifiers: Qualified Codes: F01.50 - Vascular dementia without behavioral disturbance (13) Coffee ground vomiting ICD Codes: K92.0 - Hematemesis SNOMED: 27032758 (14) Leukocytosis ICD Codes: D72.829 - Elevated white blood cell count, unspecified SNOMED: 391638459, 363640595 (15) UTI (urinary tract infection) ICD Codes: N39.0 - Urinary tract infection, site not specified SNOMED: 16551242 Assessment/Plan dka resolved cva sepsisb bg is improving clinically improving moniter for bleeding Subjective ROS Limited/Unobtainable: Yes Allergies: Coded Allergies: No Known Allergies (Verified , 12/27/08) Objective Last 24 Hour Vital Signs Date Time Temp Pulse Resp B/P Pulse Ox O2 Delivery O2 Flow Rate FiO2 11/29/16 08:00 99.5 70 20 125/54 96 Venturi Mask 55 11/29/16 08:00 103 11/29/16 07:44 94 20 Venturi Mask 14.0 55 11/29/16 07:42 95 Venturi Mask 14.0 55 11/29/16 07:41 Venturi Mask 14.0 55 11/29/16 04:00 98.1 80 18 122/75 95 Venturi Mask 55 11/29/16 00:00 93 11/29/16 00:00 98.2 86 20 120/68 95 Venturi Mask 55 11/28/16 20:00 97.9 89 19 109/51 95 Venturi Mask 55 11/28/16 20:00 89 11/28/16 19:09 Venturi Mask 14.0 55 11/28/16 19:09 95 Venturi Mask 14.0 55 11/28/16 19:09 89 20 Venturi Mask 14.0 55 11/28/16 16:00 97.5 82 18 120/70 99 Venturi Mask 5.0 11/28/16 16:00 89 Intake and Output 11/28/16 11/29/16 19:00 07:00 Intake Total 880.0 ml 982.5 ml Output Total 350 ml 1100 ml Balance 530.0 ml -117.5 ml Intake IV Total 880.0 ml 982.5 ml Output Urine Total 350 ml 1100 ml Gastric Drainage Total 0 ml Laboratory Tests 11/29/16 04:00: White Blood Count 16.5H, Red Blood Count 3.40L, Hemoglobin 10.5L, Hematocrit 33.8L, Mean Corpuscular Volume 99, Mean Corpuscular Hemoglobin 31.0, Mean Corpuscular Hemoglobin Concent 31.2L, Red Cell Distribution Width 14.5, Platelet Count 175, Mean Platelet Volume 8.4, Neutrophils (%) (Auto) , Lymphocytes (%) (Auto) , Monocytes (%) (Auto) , Eosinophils (%) (Auto) , Basophils (%) (Auto) , Differential Total Cells Counted 100, Neutrophils % ( Manual) 90H, Lymphocytes % (Manual) 5L, Monocytes % (Manual) 4, Eosinophils % ( Manual) 1, Basophils % (Manual) 0, Band Neutrophils 0, Platelet Estimate Adequate, Platelet Morphology Normal, Hypochromasia 1+, Anisocytosis 1+, Sodium Level 158H, Potassium Level 3.8, Chloride Level 117H, Carbon Dioxide Level 28, Anion Gap 13, Blood Urea Nitrogen 59H, Creatinine 2.0H, Estimat Glomerular Filtration Rate , Glucose Level 152H, Calcium Level 8.3L, Phosphorus Level 2.8, Magnesium Level 2.7H, Total Bilirubin 1.0, Aspartate Amino Transf (AST/SGOT) 61H , Alanine Aminotransferase (ALT/SGPT) 94H, Alkaline Phosphatase 222H, Total Protein 6.2L, Albumin 2.5L, Globulin 3.7, Albumin/Globulin Ratio 0.6L 11/29/16 09:20: Arterial Blood pH 7.420, Arterial Blood Partial Pressure CO2 45.1H, Arterial Blood Partial Pressure O2 60.3L, Arterial Blood HCO3 29.0H, Arterial Blood Oxygen Saturation 90.8L, Arterial Blood Base Excess 4.0, Carlos Test Positive Height (Feet): 5 Height (Inches): 7.00 Weight (Pounds): 221 Neck: supple Cardiovascular: normal rate, regularly irregular Respiratory/Chest: lungs clear Aliza Faria MD Nov 29, 2016 12:16
--- NOTE | 2016-11-29 13:24 | Diagnostic Imaging Report ---
Indication: DYSPNEA Technique: One view of the chest Comparison: 11/28/2016 Findings: The heart is enlarged. Interstitial congestive changes persists, stable. Immediate small left pleural effusion, unchanged if so. Impression: Unchanged, over one day, findings as above.
--- NOTE | 2016-11-29 13:29 | General Progress Note ---
Assessment/Plan Status: stable Status Narrative Cr lower Assessment/Plan Acute renal failure due to sepsis , low BP , GI bleed Sepsis Hyperglycemia Choledocholithiasis Aspiration into lower respiratory tract coagulopathy 2 to anticoagulation use hx of At fib hx of CVA seizure disorder pressure ulcer dysphagia, G tube HTN Plan: Hydrate- D5 Stop Depakote, high LFTs, check level Avoid Nephrotoxics Monitor renal parameters and H&h Urine studies stop Norvasc and cardura for low bp Per orders Subjective ROS Limited/Unobtainable: No Constitutional: Reports: malaise, weakness Allergies: Coded Allergies: No Known Allergies (Verified , 12/27/08) Objective Last 24 Hour Vital Signs Date Time Temp Pulse Resp B/P Pulse Ox O2 Delivery O2 Flow Rate FiO2 11/29/16 12:00 89 11/29/16 12:00 98.1 90 19 112/63 98 Venturi Mask 55 11/29/16 08:00 99.5 70 20 125/54 96 Venturi Mask 55 11/29/16 08:00 103 11/29/16 07:44 94 20 Venturi Mask 14.0 55 11/29/16 07:42 95 Venturi Mask 14.0 55 11/29/16 07:41 Venturi Mask 14.0 55 11/29/16 04:00 98.1 80 18 122/75 95 Venturi Mask 55 11/29/16 00:00 93 11/29/16 00:00 98.2 86 20 120/68 95 Venturi Mask 55 11/28/16 20:00 97.9 89 19 109/51 95 Venturi Mask 55 11/28/16 20:00 89 11/28/16 19:09 Venturi Mask 14.0 55 11/28/16 19:09 95 Venturi Mask 14.0 55 11/28/16 19:09 89 20 Venturi Mask 14.0 55 11/28/16 16:00 97.5 82 18 120/70 99 Venturi Mask 5.0 11/28/16 16:00 89 Intake and Output 11/28/16 11/29/16 19:00 07:00 Intake Total 880.0 ml 982.5 ml Output Total 350 ml 1100 ml Balance 530.0 ml -117.5 ml Intake IV Total 880.0 ml 982.5 ml Output Urine Total 350 ml 1100 ml Gastric Drainage Total 0 ml Laboratory Tests 11/29/16 04:00: White Blood Count 16.5H, Red Blood Count 3.40L, Hemoglobin 10.5L, Hematocrit 33.8L, Mean Corpuscular Volume 99, Mean Corpuscular Hemoglobin 31.0, Mean Corpuscular Hemoglobin Concent 31.2L, Red Cell Distribution Width 14.5, Platelet Count 175, Mean Platelet Volume 8.4, Neutrophils (%) (Auto) , Lymphocytes (%) (Auto) , Monocytes (%) (Auto) , Eosinophils (%) (Auto) , Basophils (%) (Auto) , Differential Total Cells Counted 100, Neutrophils % ( Manual) 90H, Lymphocytes % (Manual) 5L, Monocytes % (Manual) 4, Eosinophils % ( Manual) 1, Basophils % (Manual) 0, Band Neutrophils 0, Platelet Estimate Adequate, Platelet Morphology Normal, Hypochromasia 1+, Anisocytosis 1+, Sodium Level 158H, Potassium Level 3.8, Chloride Level 117H, Carbon Dioxide Level 28, Anion Gap 13, Blood Urea Nitrogen 59H, Creatinine 2.0H, Estimat Glomerular Filtration Rate , Glucose Level 152H, Calcium Level 8.3L, Phosphorus Level 2.8, Magnesium Level 2.7H, Total Bilirubin 1.0, Aspartate Amino Transf (AST/SGOT) 61H , Alanine Aminotransferase (ALT/SGPT) 94H, Alkaline Phosphatase 222H, Total Protein 6.2L, Albumin 2.5L, Globulin 3.7, Albumin/Globulin Ratio 0.6L 11/29/16 09:20: Arterial Blood pH 7.420, Arterial Blood Partial Pressure CO2 45.1H, Arterial Blood Partial Pressure O2 60.3L, Arterial Blood HCO3 29.0H, Arterial Blood Oxygen Saturation 90.8L, Arterial Blood Base Excess 4.0, Carlos Test Positive Height (Feet): 5 Height (Inches): 7.00 Weight (Pounds): 221 General Appearance: no apparent distress, lethargic Neck: limited range of motion Cardiovascular: tachycardia Respiratory/Chest: decreased breath sounds Abdomen: distended Objective other physical exam not changed ALONDRA FULTON Nov 29, 2016 13:29
--- NOTE | 2016-11-29 14:05 | Cardiology Report ---
APPROVED REPORT EKG Measurement Heart [id number] Sinus rhythm with occasional premature ventricular complexes Left axis deviation Low voltage QRS Possible Anterolateral infarct, age undetermined Abnormal ECG
[2016-11-29] MEDS ORDERED: Tubing IV Secondary IV ONE (15:15)
[2016-11-29] MEDS ORDERED: 1/2 NS 1000ml IV ONE (15:15)
[2016-11-29] MEDS ORDERED: Tubing Blood Filter IV ONE (15:15)
[2016-11-29] MEDS ORDERED: NS 275ml ONE (15:15)
--- NOTE | 2016-11-29 15:48 | General Progress Note ---
Assessment/Plan Problem List: (1) Gallstone pancreatitis ICD Codes: K85.10 - Biliary acute pancreatitis without necrosis or infection SNOMED: 55559928 Assessment/Plan improving labs pending MRCP ? passed CBD stone ERCP if needed Subjective Allergies: Coded Allergies: No Known Allergies (Verified , 12/27/08) All Systems: reviewed and negative except above Objective Last 24 Hour Vital Signs Date Time Temp Pulse Resp B/P Pulse Ox O2 Delivery O2 Flow Rate FiO2 11/29/16 12:00 89 11/29/16 12:00 98.1 90 19 112/63 98 Venturi Mask 55 11/29/16 08:00 99.5 70 20 125/54 96 Venturi Mask 55 11/29/16 08:00 103 11/29/16 07:44 94 20 Venturi Mask 14.0 55 11/29/16 07:42 95 Venturi Mask 14.0 55 11/29/16 07:41 Venturi Mask 14.0 55 11/29/16 04:00 98.1 80 18 122/75 95 Venturi Mask 55 11/29/16 00:00 93 11/29/16 00:00 98.2 86 20 120/68 95 Venturi Mask 55 11/28/16 20:00 97.9 89 19 109/51 95 Venturi Mask 55 11/28/16 20:00 89 11/28/16 19:09 Venturi Mask 14.0 55 11/28/16 19:09 95 Venturi Mask 14.0 55 11/28/16 19:09 89 20 Venturi Mask 14.0 55 11/28/16 16:00 97.5 82 18 120/70 99 Venturi Mask 5.0 11/28/16 16:00 89 Intake and Output 11/28/16 11/29/16 19:00 07:00 Intake Total 880.0 ml 982.5 ml Output Total 350 ml 1100 ml Balance 530.0 ml -117.5 ml Intake IV Total 880.0 ml 982.5 ml Output Urine Total 350 ml 1100 ml Gastric Drainage Total 0 ml Laboratory Tests 11/29/16 04:00: White Blood Count 16.5H, Red Blood Count 3.40L, Hemoglobin 10.5L, Hematocrit 33.8L, Mean Corpuscular Volume 99, Mean Corpuscular Hemoglobin 31.0, Mean Corpuscular Hemoglobin Concent 31.2L, Red Cell Distribution Width 14.5, Platelet Count 175, Mean Platelet Volume 8.4, Neutrophils (%) (Auto) , Lymphocytes (%) (Auto) , Monocytes (%) (Auto) , Eosinophils (%) (Auto) , Basophils (%) (Auto) , Differential Total Cells Counted 100, Neutrophils % ( Manual) 90H, Lymphocytes % (Manual) 5L, Monocytes % (Manual) 4, Eosinophils % ( Manual) 1, Basophils % (Manual) 0, Band Neutrophils 0, Platelet Estimate Adequate, Platelet Morphology Normal, Hypochromasia 1+, Anisocytosis 1+, Sodium Level 158H, Potassium Level 3.8, Chloride Level 117H, Carbon Dioxide Level 28, Anion Gap 13, Blood Urea Nitrogen 59H, Creatinine 2.0H, Estimat Glomerular Filtration Rate , Glucose Level 152H, Calcium Level 8.3L, Phosphorus Level 2.8, Magnesium Level 2.7H, Total Bilirubin 1.0, Aspartate Amino Transf (AST/SGOT) 61H , Alanine Aminotransferase (ALT/SGPT) 94H, Alkaline Phosphatase 222H, Total Protein 6.2L, Albumin 2.5L, Globulin 3.7, Albumin/Globulin Ratio 0.6L 11/29/16 09:20: Arterial Blood pH 7.420, Arterial Blood Partial Pressure CO2 45.1H, Arterial Blood Partial Pressure O2 60.3L, Arterial Blood HCO3 29.0H, Arterial Blood Oxygen Saturation 90.8L, Arterial Blood Base Excess 4.0, Carlos Test Positive Height (Feet): 5 Height (Inches): 7.00 Weight (Pounds): 221 General Appearance: no apparent distress EENT: normal ENT inspection Neck: supple Cardiovascular: normal rate Respiratory/Chest: decreased breath sounds Abdomen: normal bowel sounds, non tender, soft Extremities: non-tender FLOYD MARIANO Nov 29, 2016 15:48
[2016-11-29 16:10] VITALS: BP 108/51
--- NOTE | 2016-11-29 16:55 | Infectious Diseases Prog Note ---
Assessment/Plan Problems: (1) HCAP (healthcare-associated pneumonia) Assessment & Plan: continue vancomycin and zosyn, monitor CXR, send sputum for culture, pulmonary is following (2) UTI (urinary tract infection) Assessment & Plan: already on zosyn, await urine culture (3) Sepsis Assessment & Plan: with coag negative staph which is most likely contaminant , and Citrobacter diversus which is real , source most likely GI or tract . already on zosyn and vancomycin , needs source control to for CBD obstruction with possible ERCP. (4) Choledocholithiasis Assessment & Plan: possible ascending cholangitis ,continue zosyn and vancomycin , recommend MRCP for further evaluation , and ERCP for source control , GI is following (5) FABIOLA (acute kidney injury) Assessment & Plan: due to sepsis, continue hydration, avoid nephrotoxic meds (6) Hyperglycemia Assessment & Plan: due to pancreatitis , continue insulin , and titrate to keep glucose level between 80-120 (7) Coagulopathy Assessment & Plan: due to coumadin, on hold, tranfuse FFP to revers INR, cardiology is following (8) Acute pancreatitis Assessment & Plan: complicated with intraabdominal phlegmon , will continue wide spectrum antibiotics therapy, may need ERCP for source control to relief CBD if really obstructed. (9) Coffee ground vomiting Assessment & Plan: due to coagulopathy, from coumadin, monitor H/H ,transfuse blood as needed , give FFP to reverse INR. GI and hematology are following (10) Common bile duct (CBD) obstruction Assessment & Plan: recommend MRCP for further evaluation and ERCP to remove the obstruction once hemodynamically stable. GI is following Subjective ROS Limited/Unobtainable: Yes Allergies: Coded Allergies: No Known Allergies (Verified , 12/27/08) Subjective he is on Ventimask for high flow oxygen , doesn't follow commands . nonverbal, not in distress Objective Vital Signs Last 24 Hour Vital Signs Date Time Temp Pulse Resp B/P Pulse Ox O2 Delivery O2 Flow Rate FiO2 11/29/16 16:10 99.8 85 19 108/51 96 Mechanical Ventilator 55 11/29/16 12:00 89 11/29/16 12:00 98.1 90 19 112/63 98 Venturi Mask 55 11/29/16 08:00 99.5 70 20 125/54 96 Venturi Mask 55 11/29/16 08:00 103 11/29/16 07:44 94 20 Venturi Mask 14.0 55 11/29/16 07:42 95 Venturi Mask 14.0 55 11/29/16 07:41 Venturi Mask 14.0 55 11/29/16 04:00 98.1 80 18 122/75 95 Venturi Mask 55 11/29/16 00:00 93 11/29/16 00:00 98.2 86 20 120/68 95 Venturi Mask 55 11/28/16 20:00 97.9 89 19 109/51 95 Venturi Mask 55 11/28/16 20:00 89 11/28/16 19:09 Venturi Mask 14.0 55 11/28/16 19:09 95 Venturi Mask 14.0 55 11/28/16 19:09 89 20 Venturi Mask 14.0 55 Height (Feet): 5 Height (Inches): 7.00 Weight (Pounds): 221 General Appearance: WD/WN, no acute distress HEENT: normocephalic, atraumatic, anicteric, mucous membranes moist Respiratory/Chest: no respiratory distress, no accessory muscle use, decreased breath sounds, crackles/rales Cardiovascular: normal peripheral pulses, normal rate, regular rhythm Abdomen: normal bowel sounds, no organomegaly, no mass, no scars, distended Extremities: no cyanosis, no clubbing Skin: no rash, no lesions Microbiology Date/Time Source Procedure Growth Status 11/27/16 11:50 Other Fluid Gram Stain - Final Resulted 11/27/16 11:50 Other Fluid Aerobic Culture - Preliminary NO GROWTH AFTER 24 HOURS Resulted 11/27/16 11:50 Other Fluid Anaerobic Culture Pending Resulted 11/27/16 07:00 Sputum Gram Stain - Final Complete 11/27/16 07:00 Sputum Sputum Culture - Final NORMAL UPPER RESPIRATORY DEBBIE PRESENT Complete Laboratory Tests Test 11/29/16 04:00 11/29/16 09:20 11/29/16 15:30 White Blood Count 16.5 K/UL (4.8-10.8) H Red Blood Count 3.40 M/UL (4.70-6.10) L Hemoglobin 10.5 G/DL (14.2-18.0) L Hematocrit 33.8 % (42.0-52.0) L Mean Corpuscular Volume 99 FL (80-99) Mean Corpuscular Hemoglobin 31.0 PG (27.0-31.0) Mean Corpuscular Hemoglobin Concent 31.2 G/DL (32.0-36.0) L Red Cell Distribution Width 14.5 % (11.6-14.8) Platelet Count 175 K/UL (150-450) Mean Platelet Volume 8.4 FL (6.5-10.1) Neutrophils (%) (Auto) % (45.0-75.0) Lymphocytes (%) (Auto) % (20.0-45.0) Monocytes (%) (Auto) % (1.0-10.0) Eosinophils (%) (Auto) % (0.0-3.0) Basophils (%) (Auto) % (0.0-2.0) Differential Total Cells Counted 100 Neutrophils % (Manual) 90 % (45-75) H Lymphocytes % (Manual) 5 % (20-45) L Monocytes % (Manual) 4 % (1-10) Eosinophils % (Manual) 1 % (0-3) Basophils % (Manual) 0 % (0-2) Band Neutrophils 0 % (0-8) Platelet Estimate Adequate Platelet Morphology Normal Hypochromasia 1+ Anisocytosis 1+ Sodium Level 158 mEQ/L (135-145) H Potassium Level 3.8 mEQ/L (3.4-4.9) Chloride Level 117 mEQ/L (98-107) H Carbon Dioxide Level 28 mEQ/L (20-30) Anion Gap 13 (5-15) Blood Urea Nitrogen 59 mg/dL (7-23) H Creatinine 2.0 mg/dL (0.7-1.2) H Estimat Glomerular Filtration Rate mL/min (>60) Glucose Level 152 mg/dL (74-106) H Calcium Level 8.3 mg/dL (8.6-10.2) L Phosphorus Level 2.8 mg/dL (2.5-4.8) Magnesium Level 2.7 mg/dL (1.7-2.5) H Total Bilirubin 1.0 mg/dL (0.0-1.2) Aspartate Amino Transf (AST/SGOT) 61 U/L (5-40) H Alanine Aminotransferase (ALT/SGPT) 94 U/L (3-41) H Alkaline Phosphatase 222 U/L (40-129) H Total Protein 6.2 g/dL (6.6-8.7) L Albumin 2.5 g/dL (3.5-5.2) L Globulin 3.7 g/dL Albumin/Globulin Ratio 0.6 (1.0-2.7) L Arterial Blood pH 7.420 (7.350-7.450) Arterial Blood Partial Pressure CO2 45.1 mmHg (35.0-45.0) H Arterial Blood Partial Pressure O2 60.3 mmHg (75.0-100.0) L Arterial Blood HCO3 29.0 mmol/L (22.0-26.0) H Arterial Blood Oxygen Saturation 90.8 % (92.0-98.0) L Arterial Blood Base Excess 4.0 Carlos Test Positive Valproic Acid (Depakene) Level 25 ug/mL (50-100) L Current Medications Medications (Trade) Dose Ordered Sig/Jamaal Route PRN Reason Start Time Stop Time Status Last Admin Dose Admin Acetaminophen (Tylenol) 650 mg Q4H PRN ORAL Fever 11/28/16 19:00 12/28/16 18:59 Albuterol/ Ipratropium (DuoNeb 0.5-3(2.5)mg/3ml) 3 ml Q4H PRN HHN Shortness of Breath 11/28/16 15:15 12/03/16 15:14 Clonidine HCl (Catapres) 0.1 mg Q8H PRN GT sbp> 160 11/28/16 15:15 12/28/16 15:14 Dextrose (D5W 1000ml) 1,000 ml @ 85 mls/hr [id number] IV 11/29/16 15:00 12/29/16 14:59 11/29/16 15:04 Dextrose (Dextrose 50%) STAT PRN IV Hypoglycemia 11/28/16 19:00 12/28/16 18:59 Insulin Aspart (NovoLOG) EVERY 6 HOURS SUBQ 11/28/16 19:00 12/28/16 18:59 11/29/16 12:41 Insulin Detemir (Levemir) 8 units Q12HR SUBQ 11/28/16 21:00 12/28/16 20:59 11/29/16 10:00 Lorazepam (Ativan 2mg/ml 1ml) 2 mg Q2H PRN IV agitation 3/15/17 15:15 12/05/16 15:14 11/29/16 06:29 Morphine Sulfate (Morphine Sulfate) 4 mg Q4H PRN IVP Severe Pain (Pain Scale 7-10) 11/28/16 15:15 12/05/16 15:14 11/29/16 09:57 Nitroglycerin (Ntg) 0.4 mg Q5M PRN SL Prn Chest Pain 11/28/16 15:00 12/28/16 14:59 Ondansetron HCl (Zofran) 4 mg Q6H PRN IVP Nausea & Vomiting 11/28/16 17:15 12/28/16 17:14 Pantoprazole (Protonix) 40 mg BID IVP 11/28/16 19:00 12/28/16 18:59 11/29/16 09:57 Piperacillin Sod/ Tazobactam Sod/ Sodium Chloride (Zosyn/Sodium Chloride) 110 ml @ 27.5 mls/hr Q12HR@0000,1200 IVPB 11/29/16 00:00 12/06/16 00:00 11/29/16 12:40 Polyethylene Glycol (Miralax) 17 gm DAILYPRN PRN ORAL Constipation 11/28/16 19:00 12/28/16 18:59 Vancomycin HCl 1 ea 1 ea DAILY PRN MISC Per rx protocol 11/29/16 09:00 12/29/16 08:59 Ariana Acevedo M.D. Nov 29, 2016 16:55
--- NOTE | 2016-11-29 19:49 | Cardiac Electrophysiology PN ---
Assessment/Plan Assessment/Plan 1. Sinus tachycardia due to the patient's sepsis. History of atrial fibrillation but remained in sinus rhythm. 2. Paroxysmal atrial fibrillation. The patient was on Coumadin with supratherapeutic INR. Coumadin is on hold until the INR comes to therapeutic range. Off of any AV teodora jacinto. Echo EF Normal 3. Sepsis. The patient is on broad-spectrum antibiotic 4. Status post percutaneous endoscopic gastrostomy placement, had MRI of abdomen. 5. Hypernatremia secondary to dehydration. 6. Coffee-ground emesis. F/U per Dr. Wilson. 7. Pancreatitis. DW RN Subjective Subjective No arrhythmias..Off pressors and in SR. Objective Last 24 Hour Vital Signs Date Time Temp Pulse Resp B/P Pulse Ox O2 Delivery O2 Flow Rate FiO2 11/29/16 16:10 99.8 85 19 108/51 96 Mechanical Ventilator 55 11/29/16 12:00 89 11/29/16 12:00 98.1 90 19 112/63 98 Venturi Mask 55 11/29/16 08:00 99.5 70 20 125/54 96 Venturi Mask 55 11/29/16 08:00 103 11/29/16 07:44 94 20 Venturi Mask 14.0 55 11/29/16 07:42 95 Venturi Mask 14.0 55 11/29/16 07:41 Venturi Mask 14.0 55 11/29/16 04:00 98.1 80 18 122/75 95 Venturi Mask 55 11/29/16 00:00 93 11/29/16 00:00 98.2 86 20 120/68 95 Venturi Mask 55 11/28/16 20:00 97.9 89 19 109/51 95 Venturi Mask 55 11/28/16 20:00 89 Intake and Output 11/28/16 11/29/16 19:00 07:00 Intake Total 880.0 ml 982.5 ml Output Total 350 ml 1100 ml Balance 530.0 ml -117.5 ml Intake IV Total 880.0 ml 982.5 ml Output Urine Total 350 ml 1100 ml Gastric Drainage Total 0 ml Laboratory Tests Test 11/29/16 04:00 11/29/16 09:20 11/29/16 15:30 White Blood Count 16.5 K/UL (4.8-10.8) H Red Blood Count 3.40 M/UL (4.70-6.10) L Hemoglobin 10.5 G/DL (14.2-18.0) L Hematocrit 33.8 % (42.0-52.0) L Mean Corpuscular Volume 99 FL (80-99) Mean Corpuscular Hemoglobin 31.0 PG (27.0-31.0) Mean Corpuscular Hemoglobin Concent 31.2 G/DL (32.0-36.0) L Red Cell Distribution Width 14.5 % (11.6-14.8) Platelet Count 175 K/UL (150-450) Mean Platelet Volume 8.4 FL (6.5-10.1) Neutrophils (%) (Auto) % (45.0-75.0) Lymphocytes (%) (Auto) % (20.0-45.0) Monocytes (%) (Auto) % (1.0-10.0) Eosinophils (%) (Auto) % (0.0-3.0) Basophils (%) (Auto) % (0.0-2.0) Differential Total Cells Counted 100 Neutrophils % (Manual) 90 % (45-75) H Lymphocytes % (Manual) 5 % (20-45) L Monocytes % (Manual) 4 % (1-10) Eosinophils % (Manual) 1 % (0-3) Basophils % (Manual) 0 % (0-2) Band Neutrophils 0 % (0-8) Platelet Estimate Adequate Platelet Morphology Normal Hypochromasia 1+ Anisocytosis 1+ Sodium Level 158 mEQ/L (135-145) H Potassium Level 3.8 mEQ/L (3.4-4.9) Chloride Level 117 mEQ/L (98-107) H Carbon Dioxide Level 28 mEQ/L (20-30) Anion Gap 13 (5-15) Blood Urea Nitrogen 59 mg/dL (7-23) H Creatinine 2.0 mg/dL (0.7-1.2) H Estimat Glomerular Filtration Rate mL/min (>60) Glucose Level 152 mg/dL (74-106) H Calcium Level 8.3 mg/dL (8.6-10.2) L Phosphorus Level 2.8 mg/dL (2.5-4.8) Magnesium Level 2.7 mg/dL (1.7-2.5) H Total Bilirubin 1.0 mg/dL (0.0-1.2) Aspartate Amino Transf (AST/SGOT) 61 U/L (5-40) H Alanine Aminotransferase (ALT/SGPT) 94 U/L (3-41) H Alkaline Phosphatase 222 U/L (40-129) H Total Protein 6.2 g/dL (6.6-8.7) L Albumin 2.5 g/dL (3.5-5.2) L Globulin 3.7 g/dL Albumin/Globulin Ratio 0.6 (1.0-2.7) L Arterial Blood pH 7.420 (7.350-7.450) Arterial Blood Partial Pressure CO2 45.1 mmHg (35.0-45.0) H Arterial Blood Partial Pressure O2 60.3 mmHg (75.0-100.0) L Arterial Blood HCO3 29.0 mmol/L (22.0-26.0) H Arterial Blood Oxygen Saturation 90.8 % (92.0-98.0) L Arterial Blood Base Excess 4.0 Carlos Test Positive Valproic Acid (Depakene) Level 25 ug/mL (50-100) L Microbiology Date/Time Source Procedure Growth Status 11/27/16 11:50 Other Fluid Gram Stain - Final Resulted 11/27/16 11:50 Other Fluid Aerobic Culture - Preliminary NO GROWTH AFTER 24 HOURS Resulted 11/27/16 11:50 Other Fluid Anaerobic Culture Pending Resulted 11/27/16 07:00 Sputum Gram Stain - Final Complete 11/27/16 07:00 Sputum Sputum Culture - Final NORMAL UPPER RESPIRATORY DEBBIE PRESENT Complete Objective NECK: No JVD. LUNGS: Coarse rhonchi. CARDIOVASCULAR: Tachycardic S1 and S2 with no murmur. ABDOMEN: Soft. G-tube. EXTREMITIES: 1+ pitting edema. BRYON AC Nov 29, 2016 19:49
[2016-11-29 20:00] VITALS: BP 134/72
[2016-11-30] VITALS: BP 97/59
[2016-11-30] MEDS: Piperacillin/Tazobactam 3.375 GM in NS 110 ML IVPB SCH ×2 (00:19→12:28)
[2016-11-30] MEDS: NovoLOG Insulin Flexpen SUBQ SCH ×4 (00:27→18:23)
[2016-11-30 04:00] VITALS: BP 108/71
[2016-11-30] MEDS: Morphine Sulfate 4mg/ml Inj IVP PRN (04:32)
[2016-11-30 06:27] LABS: MEAN CORPUSCULAR VOLUME 100 FL (80-99); MEAN PLATELET VOLUME 8.3 FL (6.5-10.1); PLATELET COUNT 221 K/UL (150-450); RED BLOOD COUNT 3.63 M/UL (4.70-6.10); RED CELL DISTRIBUTION WIDTH 14.7 % (11.6-14.8); WHITE BLOOD COUNT 18.3 K/UL (4.8-10.8)
[2016-11-30 06:43] LABS: INR 4.9 (0.9-1.1); PROTHROMBIN TIME 52.8 SEC (9.30-11.50)
[2016-11-30 07:02] LABS: ALANINE AMINOTRANSFERASE 73 U/L (3-41); ALBUMIN/GLOBULIN RATIO 0.7 (1.0-2.7); ANION GAP 16 (5-15); ASPARTATE AMINO TRANSFERASE 47 U/L (5-40); CALCIUM 8.6 mg/dL (8.6-10.2); CARBON DIOXIDE 27 mEQ/L (20-30); CHLORIDE 110 mEQ/L (98-107); CREATININE 2.1 mg/dL (0.7-1.2); HEMOLYSIS 14; POTASSIUM 3.6 mEQ/L (3.4-4.9); SODIUM 153 mEQ/L (135-145); TOTAL PROTEIN 6.5 g/dL (6.6-8.7)
[2016-11-30 07:03] LABS: MAGNESIUM 2.6 mg/dL (1.7-2.5); PHOSPHORUS 2.9 mg/dL (2.5-4.8)
[2016-11-30 07:17] LABS: BILIRUBIN,DIRECT 0.4 mg/dL (0.1-0.3)
[2016-11-30] MEDS: Pantoprazole Inj IVP SCH (09:55)
[2016-11-30] MEDS: Levemir Flexpen SUBQ SCH ×2 (09:56→21:59)
[2016-11-30 10:11] LABS: BAND NEUTROPHILS % (MANUAL) 5 % (0-8); EOSINOPHILS % (MANUAL) 1 % (0-3); LYMPHOCYTES % (MANUAL) 6 % (20-45); NEUTROPHILS % (MANUAL) 83 % (45-75); TOTAL CELLS COUNTED 100
[2016-11-30 10:13] LABS: ANISOCYTOSIS 1+; BASOPHILS % (MANUAL) 0 % (0-2); HYPOCHROMASIA 1+; MACROCYTES 1+; PLATELET ESTIMATE ADEQUATE; PLATELET MORPHOLOGY NORMAL
[2016-11-30] MEDS ORDERED: NS 275ml ONE (10:22)
[2016-11-30] MEDS ORDERED: Sterile Water Irrig 1000ml IRRIG ONE (10:22)
[2016-11-30] MEDS ORDERED: Tubing IV Secondary IV ONE ×2 (10:22→10:31)
--- NOTE | 2016-11-30 10:30 | General Progress Note ---
Assessment/Plan Problem List: (1) Hyperglycemia ICD Codes: R73.9 - Hyperglycemia, unspecified SNOMED: 66644613 (2) FABIOLA (acute kidney injury) ICD Codes: N17.9 - Acute kidney failure, unspecified SNOMED: 07127479 (3) Choledocholithiasis ICD Codes: K80.50 - Calculus of bile duct without cholangitis or cholecystitis without obstruction SNOMED: 422392234 (4) Pressure ulcer ICD Codes: L89.90 - Pressure ulcer SNOMED: 467909720 (5) Fever ICD Codes: R50.9 - Fever SNOMED: 849130227 (6) Anemia ICD Codes: D64.9 - Anemia SNOMED: 516818483 (7) Cellulitis ICD Codes: L03.90 - Cellulitis SNOMED: 251441846 (8) Seizure disorder ICD Codes: G40.909 - Seizure disorder SNOMED: 944613440 (9) Sepsis ICD Codes: A41.9 - Sepsis, unspecified organism SNOMED: 79226981 Qualifiers: Qualified Codes: A41.9 - Sepsis, unspecified organism (10) Venous stasis ulcers ICD Codes: I83.009 - Venous stasis ulcers SNOMED: 470554555 (11) Bilateral lower extremity edema (12) Dementia ICD Codes: F03.90 - Unspecified dementia without behavioral disturbance SNOMED: 29899285 Qualifiers: Qualified Codes: F01.50 - Vascular dementia without behavioral disturbance (13) Coffee ground vomiting ICD Codes: K92.0 - Hematemesis SNOMED: 98295048 (14) Leukocytosis ICD Codes: D72.829 - Elevated white blood cell count, unspecified SNOMED: 141098380, 959100911 (15) UTI (urinary tract infection) ICD Codes: N39.0 - Urinary tract infection, site not specified SNOMED: 30421140 Status: progressing Assessment/Plan dka resolved cva sepsis abx per id reviewed chart and labs bg is improving Subjective ROS Limited/Unobtainable: Yes Allergies: Coded Allergies: No Known Allergies (Verified , 12/27/08) Objective Last 24 Hour Vital Signs Date Time Temp Pulse Resp B/P Pulse Ox O2 Delivery O2 Flow Rate FiO2 11/30/16 06:30 80 18 Venturi Mask 14.0 55 11/30/16 06:30 Venturi Mask 14.0 55 11/30/16 06:30 98 Venturi Mask 14.0 55 11/30/16 04:00 100 11/30/16 04:00 99.5 99 20 108/71 98 Venturi Mask 55 11/30/16 00:00 81 11/30/16 00:00 98.4 81 24 97/59 95 Venturi Mask 55 11/29/16 23:10 98.4 11/29/16 20:00 91 11/29/16 20:00 100.5 100 25 134/72 95 Venturi Mask 55 11/29/16 19:00 Venturi Mask 14.0 55 11/29/16 19:00 96 Venturi Mask 14.0 55 11/29/16 19:00 86 18 Venturi Mask 14.0 55 11/29/16 16:10 99.8 85 19 108/51 96 Mechanical Ventilator 55 11/29/16 16:00 84 11/29/16 12:00 89 11/29/16 12:00 98.1 90 19 112/63 98 Venturi Mask 55 Intake and Output 11/29/16 11/30/16 19:00 07:00 Intake Total 75 ml 950.0 ml Output Total 400 ml 450 ml Balance -325 ml 500.0 ml Intake IV Total 75 ml 705.0 ml Tube Feeding 245 ml Output Urine Total 350 ml 450 ml Gastric Drainage Total 50 ml # Bowel Movements 1 Laboratory Tests 11/29/16 15:30: Valproic Acid (Depakene) Level 25L 11/30/16 03:40: White Blood Count 18.3H, Red Blood Count 3.63L, Hemoglobin 11.3L, Hematocrit 36.4L, Mean Corpuscular Volume 100H, Mean Corpuscular Hemoglobin 31.0, Mean Corpuscular Hemoglobin Concent 31.0L, Red Cell Distribution Width 14.7, Platelet Count 221, Mean Platelet Volume 8.3, Neutrophils (%) (Auto) , Lymphocytes (%) (Auto) , Monocytes (%) (Auto) , Eosinophils (%) (Auto) , Basophils (%) (Auto) , Differential Total Cells Counted 100, Neutrophils % ( Manual) 83H, Lymphocytes % (Manual) 6L, Monocytes % (Manual) 5, Eosinophils % ( Manual) 1, Basophils % (Manual) 0, Band Neutrophils 5, Platelet Estimate Adequate, Platelet Morphology Normal, Hypochromasia 1+, Anisocytosis 1+, Macrocytosis 1+, Prothrombin Time 52.8H, Prothromb Time International Ratio 4.9H , Activated Partial Thromboplast Time 57H, Sodium Level 153H, Potassium Level 3.6, Chloride Level 110H, Carbon Dioxide Level 27, Anion Gap 16H, Blood Urea Nitrogen 61H, Creatinine 2.1H, Estimat Glomerular Filtration Rate , Glucose Level 148H, Calcium Level 8.6, Phosphorus Level 2.9, Magnesium Level 2.6H, Total Bilirubin 1.1, Direct Bilirubin 0.4H, Aspartate Amino Transf (AST/SGOT) 47H, Alanine Aminotransferase (ALT/SGPT) 73H, Alkaline Phosphatase 179H, Total Protein 6.5L, Albumin 2.7L, Globulin 3.8, Albumin/Globulin Ratio 0.7L, Random Vancomycin Level 13.3 Height (Feet): 5 Height (Inches): 7.00 Weight (Pounds): 221 General Appearance: confused Neck: supple Cardiovascular: regularly irregular Respiratory/Chest: lungs clear Abdomen: soft Aliza Faria MD Nov 30, 2016 10:30
[2016-11-30] MEDS ORDERED: 1/2 NS 1000ml IV ONE (10:31)
--- NOTE | 2016-11-30 10:55 | General Progress Note ---
Assessment/Plan Problem List: (1) Gallstone pancreatitis ICD Codes: K85.10 - Biliary acute pancreatitis without necrosis or infection SNOMED: 80029439 Assessment/Plan improving labs pending MRCP ? passed CBD stone ERCP if needed possibly on Saturday if INR is corrected Subjective ROS Limited/Unobtainable: Yes Constitutional: Reports: weakness HEENT: Reports: no symptoms Cardiovascular: Reports: no symptoms Respiratory: Reports: shortness of breath Gastrointestinal/Abdominal: Reports: no symptoms Genitourinary: Reports: no symptoms Neurologic/Psychiatric: Reports: no symptoms Endocrine: Reports: no symptoms Allergies: Coded Allergies: No Known Allergies (Verified , 12/27/08) Objective Last 24 Hour Vital Signs Date Time Temp Pulse Resp B/P Pulse Ox O2 Delivery O2 Flow Rate FiO2 11/30/16 06:30 80 18 Venturi Mask 14.0 55 11/30/16 06:30 Venturi Mask 14.0 55 11/30/16 06:30 98 Venturi Mask 14.0 55 11/30/16 04:00 100 11/30/16 04:00 99.5 99 20 108/71 98 Venturi Mask 55 11/30/16 00:00 81 11/30/16 00:00 98.4 81 24 97/59 95 Venturi Mask 55 11/29/16 23:10 98.4 11/29/16 20:00 91 11/29/16 20:00 100.5 100 25 134/72 95 Venturi Mask 55 11/29/16 19:00 Venturi Mask 14.0 55 11/29/16 19:00 96 Venturi Mask 14.0 55 11/29/16 19:00 86 18 Venturi Mask 14.0 55 11/29/16 16:10 99.8 85 19 108/51 96 Mechanical Ventilator 55 11/29/16 16:00 84 11/29/16 12:00 89 11/29/16 12:00 98.1 90 19 112/63 98 Venturi Mask 55 Intake and Output 11/29/16 11/30/16 19:00 07:00 Intake Total 75 ml 950.0 ml Output Total 400 ml 450 ml Balance -325 ml 500.0 ml Intake IV Total 75 ml 705.0 ml Tube Feeding 245 ml Output Urine Total 350 ml 450 ml Gastric Drainage Total 50 ml # Bowel Movements 1 Laboratory Tests 11/29/16 15:30: Valproic Acid (Depakene) Level 25L 11/30/16 03:40: White Blood Count 18.3H, Red Blood Count 3.63L, Hemoglobin 11.3L, Hematocrit 36.4L, Mean Corpuscular Volume 100H, Mean Corpuscular Hemoglobin 31.0, Mean Corpuscular Hemoglobin Concent 31.0L, Red Cell Distribution Width 14.7, Platelet Count 221, Mean Platelet Volume 8.3, Neutrophils (%) (Auto) , Lymphocytes (%) (Auto) , Monocytes (%) (Auto) , Eosinophils (%) (Auto) , Basophils (%) (Auto) , Differential Total Cells Counted 100, Neutrophils % ( Manual) 83H, Lymphocytes % (Manual) 6L, Monocytes % (Manual) 5, Eosinophils % ( Manual) 1, Basophils % (Manual) 0, Band Neutrophils 5, Platelet Estimate Adequate, Platelet Morphology Normal, Hypochromasia 1+, Anisocytosis 1+, Macrocytosis 1+, Prothrombin Time 52.8H, Prothromb Time International Ratio 4.9H , Activated Partial Thromboplast Time 57H, Sodium Level 153H, Potassium Level 3.6, Chloride Level 110H, Carbon Dioxide Level 27, Anion Gap 16H, Blood Urea Nitrogen 61H, Creatinine 2.1H, Estimat Glomerular Filtration Rate , Glucose Level 148H, Calcium Level 8.6, Phosphorus Level 2.9, Magnesium Level 2.6H, Total Bilirubin 1.1, Direct Bilirubin 0.4H, Aspartate Amino Transf (AST/SGOT) 47H, Alanine Aminotransferase (ALT/SGPT) 73H, Alkaline Phosphatase 179H, Total Protein 6.5L, Albumin 2.7L, Globulin 3.8, Albumin/Globulin Ratio 0.7L, Random Vancomycin Level 13.3 Height (Feet): 5 Height (Inches): 7.00 Weight (Pounds): 221 General Appearance: alert EENT: normal ENT inspection Neck: supple Cardiovascular: normal rate Respiratory/Chest: decreased breath sounds Abdomen: normal bowel sounds, non tender, soft Extremities: non-tender FLOYD MARIANO Nov 30, 2016 10:55
[2016-11-30 11:33] VITALS: BP 121/70
--- NOTE | 2016-11-30 13:05 | General Progress Note ---
Progress Note Progress Note Surgery: Pt seen and examined at bedside. mental status as baseline. downgraded from ICU. comfortable. low grade fever, leukocytosis, creatinine up. Pancreatitis seems to be resolving but still concerns for possible secondary infection vs pneumonia vs cholangitis. On IV abx No acute surgical intervention at this time. Continue current care and management. Ozzie Flynn Nov 30, 2016 13:05
--- NOTE | 2016-11-30 13:41 | General Progress Note ---
Assessment/Plan Status: unchanged Status Narrative Cr 2.1 Na lower 153 Assessment/Plan Acute renal failure due to sepsis , low BP , GI bleed Sepsis Hyperglycemia Choledocholithiasis Aspiration into lower respiratory tract coagulopathy 2 to anticoagulation use hx of At fib hx of CVA seizure disorder pressure ulcer dysphagia, G tube HTN elevated LFTs, declining Plan: Hydrate- D5 Stop Depakote, high LFTs, check level Avoid Nephrotoxics Monitor renal parameters and H&h Urine studies stop Norvasc and cardura for low bp Per orders Subjective ROS Limited/Unobtainable: Yes Allergies: Coded Allergies: No Known Allergies (Verified , 12/27/08) Objective Last 24 Hour Vital Signs Date Time Temp Pulse Resp B/P Pulse Ox O2 Delivery O2 Flow Rate FiO2 11/30/16 11:33 98.8 102 20 121/70 96 Venturi Mask 15.0 11/30/16 06:30 80 18 Venturi Mask 14.0 55 11/30/16 06:30 Venturi Mask 14.0 55 11/30/16 06:30 98 Venturi Mask 14.0 55 11/30/16 04:00 100 11/30/16 04:00 99.5 99 20 108/71 98 Venturi Mask 55 11/30/16 00:00 81 11/30/16 00:00 98.4 81 24 97/59 95 Venturi Mask 55 11/29/16 23:10 98.4 11/29/16 20:00 91 11/29/16 20:00 100.5 100 25 134/72 95 Venturi Mask 55 11/29/16 19:00 Venturi Mask 14.0 55 11/29/16 19:00 96 Venturi Mask 14.0 55 11/29/16 19:00 86 18 Venturi Mask 14.0 55 11/29/16 16:10 99.8 85 19 108/51 96 Mechanical Ventilator 55 11/29/16 16:00 84 Intake and Output 11/29/16 11/30/16 19:00 07:00 Intake Total 75 ml 950.0 ml Output Total 400 ml 450 ml Balance -325 ml 500.0 ml Intake IV Total 75 ml 705.0 ml Tube Feeding 245 ml Output Urine Total 350 ml 450 ml Gastric Drainage Total 50 ml # Bowel Movements 1 Laboratory Tests 11/29/16 15:30: Valproic Acid (Depakene) Level 25L 11/30/16 03:40: White Blood Count 18.3H, Red Blood Count 3.63L, Hemoglobin 11.3L, Hematocrit 36.4L, Mean Corpuscular Volume 100H, Mean Corpuscular Hemoglobin 31.0, Mean Corpuscular Hemoglobin Concent 31.0L, Red Cell Distribution Width 14.7, Platelet Count 221, Mean Platelet Volume 8.3, Neutrophils (%) (Auto) , Lymphocytes (%) (Auto) , Monocytes (%) (Auto) , Eosinophils (%) (Auto) , Basophils (%) (Auto) , Differential Total Cells Counted 100, Neutrophils % ( Manual) 83H, Lymphocytes % (Manual) 6L, Monocytes % (Manual) 5, Eosinophils % ( Manual) 1, Basophils % (Manual) 0, Band Neutrophils 5, Platelet Estimate Adequate, Platelet Morphology Normal, Hypochromasia 1+, Anisocytosis 1+, Macrocytosis 1+, Prothrombin Time 52.8H, Prothromb Time International Ratio 4.9H , Activated Partial Thromboplast Time 57H, Sodium Level 153H, Potassium Level 3.6, Chloride Level 110H, Carbon Dioxide Level 27, Anion Gap 16H, Blood Urea Nitrogen 61H, Creatinine 2.1H, Estimat Glomerular Filtration Rate , Glucose Level 148H, Calcium Level 8.6, Phosphorus Level 2.9, Magnesium Level 2.6H, Total Bilirubin 1.1, Direct Bilirubin 0.4H, Aspartate Amino Transf (AST/SGOT) 47H, Alanine Aminotransferase (ALT/SGPT) 73H, Alkaline Phosphatase 179H, Total Protein 6.5L, Albumin 2.7L, Globulin 3.8, Albumin/Globulin Ratio 0.7L, Random Vancomycin Level 13.3 Height (Feet): 5 Height (Inches): 7.00 Weight (Pounds): 221 General Appearance: mild distress Cardiovascular: tachycardia Respiratory/Chest: decreased breath sounds, rhonchi - bilaterally - - few Abdomen: distended Objective other physical exam not changed ALONDRA FULTON Nov 30, 2016 13:41
[2016-11-30 16:00] VITALS: BP 138/50
[2016-11-30] MEDS ORDERED: Vancomycin 1.5 GM/D5W 325 ML IVPB ONE ×2 (16:00)
--- NOTE | 2016-11-30 16:10 | Infectious Diseases Prog Note ---
Assessment/Plan Problems: (1) HCAP (healthcare-associated pneumonia) Assessment & Plan: continue vancomycin and zosyn, monitor CXR, send sputum for culture, pulmonary is following (2) UTI (urinary tract infection) Assessment & Plan: already on zosyn, await urine culture (3) Sepsis Assessment & Plan: with coag negative staph which is most likely contaminant , and Citrobacter diversus which is real , source most likely GI or tract . already on zosyn , needs source control to remove obstruction of CBD with possible ERCP. (4) Choledocholithiasis Assessment & Plan: possible ascending cholangitis ,continue zosyn and vancomycin , recommend MRCP for further evaluation , and ERCP for source control , GI is following (5) FABIOLA (acute kidney injury) Assessment & Plan: due to sepsis, continue hydration, avoid nephrotoxic meds (6) Hyperglycemia Assessment & Plan: due to pancreatitis , continue insulin , and titrate to keep glucose level between 80-120 (7) Coagulopathy Assessment & Plan: due to coumadin, on hold, tranfuse FFP to revers INR, cardiology is following (8) Acute pancreatitis Assessment & Plan: complicated with intraabdominal phlegmon , will continue wide spectrum antibiotics therapy, may need ERCP for source control to relief CBD if really obstructed. (9) Coffee ground vomiting Assessment & Plan: due to coagulopathy, from coumadin, monitor H/H ,transfuse blood as needed , give FFP to reverse INR. GI and hematology are following (10) Common bile duct (CBD) obstruction Assessment & Plan: recommend MRCP for further evaluation and ERCP to remove the obstruction once hemodynamically stable. GI is following Subjective ROS Limited/Unobtainable: Yes Allergies: Coded Allergies: No Known Allergies (Verified , 12/27/08) Subjective he is on Ventimask for high flow oxygen , doesn't follow commands . nonverbal, not in distress Objective Vital Signs Last 24 Hour Vital Signs Date Time Temp Pulse Resp B/P Pulse Ox O2 Delivery O2 Flow Rate FiO2 11/30/16 12:00 101 11/30/16 11:33 98.8 102 20 121/70 96 Venturi Mask 15.0 11/30/16 08:00 93 11/30/16 06:30 80 18 Venturi Mask 14.0 55 11/30/16 06:30 Venturi Mask 14.0 55 11/30/16 06:30 98 Venturi Mask 14.0 55 11/30/16 04:00 100 11/30/16 04:00 99.5 99 20 108/71 98 Venturi Mask 55 11/30/16 00:00 81 11/30/16 00:00 98.4 81 24 97/59 95 Venturi Mask 55 11/29/16 23:10 98.4 11/29/16 20:00 91 11/29/16 20:00 100.5 100 25 134/72 95 Venturi Mask 55 11/29/16 19:00 Venturi Mask 14.0 55 11/29/16 19:00 96 Venturi Mask 14.0 55 11/29/16 19:00 86 18 Venturi Mask 14.0 55 11/29/16 16:10 99.8 85 19 108/51 96 Mechanical Ventilator 55 11/29/16 16:00 84 Height (Feet): 5 Height (Inches): 7.00 Weight (Pounds): 221 General Appearance: WD/WN, no acute distress HEENT: normocephalic, atraumatic, anicteric Respiratory/Chest: normal breath sounds, no respiratory distress, no accessory muscle use, decreased breath sounds, crackles/rales Cardiovascular: normal peripheral pulses, normal rate, regular rhythm, no gallop/murmur, no JVD Abdomen: normal bowel sounds, soft, non tender, no organomegaly, non distended , no mass Extremities: no cyanosis, no clubbing Laboratory Tests Test 11/30/16 03:40 White Blood Count 18.3 K/UL (4.8-10.8) H Red Blood Count 3.63 M/UL (4.70-6.10) L Hemoglobin 11.3 G/DL (14.2-18.0) L Hematocrit 36.4 % (42.0-52.0) L Mean Corpuscular Volume 100 FL (80-99) H Mean Corpuscular Hemoglobin 31.0 PG (27.0-31.0) Mean Corpuscular Hemoglobin Concent 31.0 G/DL (32.0-36.0) L Red Cell Distribution Width 14.7 % (11.6-14.8) Platelet Count 221 K/UL (150-450) Mean Platelet Volume 8.3 FL (6.5-10.1) Neutrophils (%) (Auto) % (45.0-75.0) Lymphocytes (%) (Auto) % (20.0-45.0) Monocytes (%) (Auto) % (1.0-10.0) Eosinophils (%) (Auto) % (0.0-3.0) Basophils (%) (Auto) % (0.0-2.0) Differential Total Cells Counted 100 Neutrophils % (Manual) 83 % (45-75) H Lymphocytes % (Manual) 6 % (20-45) L Monocytes % (Manual) 5 % (1-10) Eosinophils % (Manual) 1 % (0-3) Basophils % (Manual) 0 % (0-2) Band Neutrophils 5 % (0-8) Platelet Estimate Adequate Platelet Morphology Normal Hypochromasia 1+ Anisocytosis 1+ Macrocytosis 1+ Prothrombin Time 52.8 SEC (9.30-11.50) H Prothromb Time International Ratio 4.9 (0.9-1.1) H Activated Partial Thromboplast Time 57 SEC (23-33) H Sodium Level 153 mEQ/L (135-145) H Potassium Level 3.6 mEQ/L (3.4-4.9) Chloride Level 110 mEQ/L (98-107) H Carbon Dioxide Level 27 mEQ/L (20-30) Anion Gap 16 (5-15) H Blood Urea Nitrogen 61 mg/dL (7-23) H Creatinine 2.1 mg/dL (0.7-1.2) H Estimat Glomerular Filtration Rate mL/min (>60) Glucose Level 148 mg/dL (74-106) H Calcium Level 8.6 mg/dL (8.6-10.2) Phosphorus Level 2.9 mg/dL (2.5-4.8) Magnesium Level 2.6 mg/dL (1.7-2.5) H Total Bilirubin 1.1 mg/dL (0.0-1.2) Direct Bilirubin 0.4 mg/dL (0.1-0.3) H Aspartate Amino Transf (AST/SGOT) 47 U/L (5-40) H Alanine Aminotransferase (ALT/SGPT) 73 U/L (3-41) H Alkaline Phosphatase 179 U/L (40-129) H Total Protein 6.5 g/dL (6.6-8.7) L Albumin 2.7 g/dL (3.5-5.2) L Globulin 3.8 g/dL Albumin/Globulin Ratio 0.7 (1.0-2.7) L Random Vancomycin Level 13.3 ug/mL Current Medications Medications (Trade) Dose Ordered Sig/Jamaal Route PRN Reason Start Time Stop Time Status Last Admin Dose Admin Acetaminophen (Tylenol) 650 mg Q4H PRN ORAL Fever 11/28/16 19:00 12/28/16 18:59 11/29/16 22:11 Albuterol/ Ipratropium (DuoNeb 0.5-3(2.5)mg/3ml) 3 ml Q4H PRN HHN Shortness of Breath 11/28/16 15:15 12/03/16 15:14 Clonidine HCl (Catapres) 0.1 mg Q8H PRN GT sbp> 160 11/28/16 15:15 12/28/16 15:14 Dextrose (D5W 1000ml) 1,000 ml @ 85 mls/hr [id number] IV 11/29/16 15:00 12/29/16 14:59 11/30/16 15:23 Dextrose (Dextrose 50%) STAT PRN IV Hypoglycemia 11/28/16 19:00 12/28/16 18:59 Insulin Aspart (NovoLOG) EVERY 6 HOURS SUBQ 11/28/16 19:00 12/28/16 18:59 11/30/16 12:32 Insulin Detemir (Levemir) 8 units Q12HR SUBQ 11/28/16 21:00 12/28/16 20:59 11/30/16 09:56 Lorazepam (Ativan 2mg/ml 1ml) 2 mg Q2H PRN IV agitation 11/28/16 15:15 12/05/16 15:14 11/29/16 06:29 Morphine Sulfate (Morphine Sulfate) 4 mg Q4H PRN IVP Severe Pain (Pain Scale 7-10) 11/28/16 15:15 12/05/16 15:14 11/30/16 04:32 Nitroglycerin (Ntg) 0.4 mg Q5M PRN SL Prn Chest Pain 11/28/16 15:00 12/28/16 14:59 Ondansetron HCl (Zofran) 4 mg Q6H PRN IVP Nausea & Vomiting 11/28/16 17:15 12/28/16 17:14 Pantoprazole 40 mg 40 mg DAILY IVP 12/01/16 09:00 12/31/16 08:59 Piperacillin Sod/ Tazobactam Sod/ Sodium Chloride (Zosyn/Sodium Chloride) 110 ml @ 27.5 mls/hr Q12HR@0000,1200 IVPB 11/29/16 00:00 12/06/16 00:00 11/30/16 12:28 Polyethylene Glycol (Miralax) 17 gm DAILYPRN PRN ORAL Constipation 11/28/16 19:00 12/28/16 18:59 Vancomycin HCl 1 ea 1 ea DAILY PRN MISC Per rx protocol 11/29/16 09:00 12/29/16 08:59 Vancomycin HCl/ Dextrose (Vancomycin/D5W) 325 ml @ 162.5 mls/ hr ONCE ONCE IVPB 11/30/16 16:00 11/30/16 17:59 Ariana Acevedo M.D. Nov 30, 2016 16:10
--- NOTE | 2016-11-30 18:26 | Cardiac Electrophysiology PN ---
Assessment/Plan Assessment/Plan 1. Sinus tachycardia due to sepsis. History of atrial fibrillation but remained in sinus rhythm. 2. Paroxysmal atrial fibrillation. Coumadin is on hold until the INR comes to therapeutic range. Off of any AV teodora jacinto. Echo EF Normal 3. Sepsis. The patient is on broad-spectrum antibiotic 4. Status post percutaneous endoscopic gastrostomy placement, MRCP pending 5. Hypernatremia secondary to dehydration. 6. Coffee-ground emesis. F/U per Dr. Wilson. 7. Pancreatitis. CHAPINCITO RN Subjective Subjective Transferred to [facility].Off pressors and in SR. MRCP pending. Objective Last 24 Hour Vital Signs Date Time Temp Pulse Resp B/P Pulse Ox O2 Delivery O2 Flow Rate FiO2 11/30/16 16:00 97.0 66 21 138/50 98 11/30/16 12:00 101 11/30/16 11:33 98.8 102 20 121/70 96 Venturi Mask 15.0 11/30/16 08:00 93 11/30/16 06:30 80 18 Venturi Mask 14.0 55 11/30/16 06:30 Venturi Mask 14.0 55 11/30/16 06:30 98 Venturi Mask 14.0 55 11/30/16 04:00 100 11/30/16 04:00 99.5 99 20 108/71 98 Venturi Mask 55 11/30/16 00:00 81 11/30/16 00:00 98.4 81 24 97/59 95 Venturi Mask 55 11/29/16 23:10 98.4 11/29/16 20:00 91 11/29/16 20:00 100.5 100 25 134/72 95 Venturi Mask 55 11/29/16 19:00 Venturi Mask 14.0 55 11/29/16 19:00 96 Venturi Mask 14.0 55 11/29/16 19:00 86 18 Venturi Mask 14.0 55 Intake and Output 11/29/16 11/30/16 19:00 07:00 Intake Total 75 ml 950.0 ml Output Total 400 ml 450 ml Balance -325 ml 500.0 ml Intake IV Total 75 ml 705.0 ml Tube Feeding 245 ml Output Urine Total 350 ml 450 ml Gastric Drainage Total 50 ml # Bowel Movements 1 Laboratory Tests Test 11/30/16 03:40 White Blood Count 18.3 K/UL (4.8-10.8) H Red Blood Count 3.63 M/UL (4.70-6.10) L Hemoglobin 11.3 G/DL (14.2-18.0) L Hematocrit 36.4 % (42.0-52.0) L Mean Corpuscular Volume 100 FL (80-99) H Mean Corpuscular Hemoglobin 31.0 PG (27.0-31.0) Mean Corpuscular Hemoglobin Concent 31.0 G/DL (32.0-36.0) L Red Cell Distribution Width 14.7 % (11.6-14.8) Platelet Count 221 K/UL (150-450) Mean Platelet Volume 8.3 FL (6.5-10.1) Neutrophils (%) (Auto) % (45.0-75.0) Lymphocytes (%) (Auto) % (20.0-45.0) Monocytes (%) (Auto) % (1.0-10.0) Eosinophils (%) (Auto) % (0.0-3.0) Basophils (%) (Auto) % (0.0-2.0) Differential Total Cells Counted 100 Neutrophils % (Manual) 83 % (45-75) H Lymphocytes % (Manual) 6 % (20-45) L Monocytes % (Manual) 5 % (1-10) Eosinophils % (Manual) 1 % (0-3) Basophils % (Manual) 0 % (0-2) Band Neutrophils 5 % (0-8) Platelet Estimate Adequate Platelet Morphology Normal Hypochromasia 1+ Anisocytosis 1+ Macrocytosis 1+ Prothrombin Time 52.8 SEC (9.30-11.50) H Prothromb Time International Ratio 4.9 (0.9-1.1) H Activated Partial Thromboplast Time 57 SEC (23-33) H Sodium Level 153 mEQ/L (135-145) H Potassium Level 3.6 mEQ/L (3.4-4.9) Chloride Level 110 mEQ/L (98-107) H Carbon Dioxide Level 27 mEQ/L (20-30) Anion Gap 16 (5-15) H Blood Urea Nitrogen 61 mg/dL (7-23) H Creatinine 2.1 mg/dL (0.7-1.2) H Estimat Glomerular Filtration Rate mL/min (>60) Glucose Level 148 mg/dL (74-106) H Calcium Level 8.6 mg/dL (8.6-10.2) Phosphorus Level 2.9 mg/dL (2.5-4.8) Magnesium Level 2.6 mg/dL (1.7-2.5) H Total Bilirubin 1.1 mg/dL (0.0-1.2) Direct Bilirubin 0.4 mg/dL (0.1-0.3) H Aspartate Amino Transf (AST/SGOT) 47 U/L (5-40) H Alanine Aminotransferase (ALT/SGPT) 73 U/L (3-41) H Alkaline Phosphatase 179 U/L (40-129) H Total Protein 6.5 g/dL (6.6-8.7) L Albumin 2.7 g/dL (3.5-5.2) L Globulin 3.8 g/dL Albumin/Globulin Ratio 0.7 (1.0-2.7) L Random Vancomycin Level 13.3 ug/mL Objective NECK: No JVD. LUNGS: Coarse rhonchi. CARDIOVASCULAR: Tachycardic S1 and S2 with no murmur. ABDOMEN: Soft. G-tube.Distended EXTREMITIES: 1+ pitting edema. BRYON AC Nov 30, 2016 18:26
[2016-11-30 20:00] VITALS: BP 102/68
--- NOTE | 2016-11-30 21:31 | General Progress Note ---
Assessment/Plan Assessment/Plan Assessment/Plan ASSESSMENT: 1. Coagulopathy with supertherapeutic - now improved, can consider to restart coumadin 2. Anemia 2/2 chronic disease, is without major changes, hgb >10 3. Leukocytosis secondary to underlying infection with pancreatitis and elevated lipase. 4. A-fibrillation was on coumadin before 5. r/o gastrointestinal bleed. 6. Dysphagia. 7. Dementia. 8. Hyperglycemia. 9. Sepsis. RECS: 1. Monitor counts. 2. Transfuse as needed 3. Anemia w/u if hgb <10 4. Okay to restart coumadin if cleared by other services 5. Consider inr 2-3 once coumadin restarted 6. Antibiotics as needed. 7. Discussed with staff. 8. Continue PPI. Thank you, Larry Ramirez MD Subjective Constitutional: Reports: no symptoms HEENT: Reports: no symptoms Cardiovascular: Reports: no symptoms Respiratory: Reports: no symptoms Gastrointestinal/Abdominal: Reports: no symptoms Genitourinary: Reports: no symptoms Neurologic/Psychiatric: Reports: no symptoms Endocrine: Reports: no symptoms Hematologic/Lymphatic: Reports: no symptoms Allergies: Coded Allergies: No Known Allergies (Verified , 12/27/08) Objective Last 24 Hour Vital Signs Date Time Temp Pulse Resp B/P Pulse Ox O2 Delivery O2 Flow Rate FiO2 11/30/16 20:00 99.5 89 22 102/68 98 Nasal Cannula 2.0 11/30/16 19:58 Venturi Mask 14.0 55 11/30/16 19:58 78 18 Venturi Mask 14.0 55 11/30/16 19:58 96 Venturi Mask 14.0 55 11/30/16 16:00 97.0 66 21 138/50 98 11/30/16 12:00 101 11/30/16 11:33 98.8 102 20 121/70 96 Venturi Mask 15.0 11/30/16 08:00 93 11/30/16 06:30 80 18 Venturi Mask 14.0 55 11/30/16 06:30 Venturi Mask 14.0 55 11/30/16 06:30 98 Venturi Mask 14.0 55 11/30/16 04:00 100 11/30/16 04:00 99.5 99 20 108/71 98 Venturi Mask 55 11/30/16 00:00 81 11/30/16 00:00 98.4 81 24 97/59 95 Venturi Mask 55 11/29/16 23:10 98.4 Intake and Output 11/29/16 11/30/16 19:00 07:00 Intake Total 75 ml 950.0 ml Output Total 400 ml 450 ml Balance -325 ml 500.0 ml Intake IV Total 75 ml 705.0 ml Tube Feeding 245 ml Output Urine Total 350 ml 450 ml Gastric Drainage Total 50 ml # Bowel Movements 1 Laboratory Tests 11/30/16 03:40: White Blood Count 18.3H, Red Blood Count 3.63L, Hemoglobin 11.3L, Hematocrit 36.4L, Mean Corpuscular Volume 100H, Mean Corpuscular Hemoglobin 31.0, Mean Corpuscular Hemoglobin Concent 31.0L, Red Cell Distribution Width 14.7, Platelet Count 221, Mean Platelet Volume 8.3, Neutrophils (%) (Auto) , Lymphocytes (%) (Auto) , Monocytes (%) (Auto) , Eosinophils (%) (Auto) , Basophils (%) (Auto) , Differential Total Cells Counted 100, Neutrophils % ( Manual) 83H, Lymphocytes % (Manual) 6L, Monocytes % (Manual) 5, Eosinophils % ( Manual) 1, Basophils % (Manual) 0, Band Neutrophils 5, Platelet Estimate Adequate, Platelet Morphology Normal, Hypochromasia 1+, Anisocytosis 1+, Macrocytosis 1+, Prothrombin Time 52.8H, Prothromb Time International Ratio 4.9H , Activated Partial Thromboplast Time 57H, Sodium Level 153H, Potassium Level 3.6, Chloride Level 110H, Carbon Dioxide Level 27, Anion Gap 16H, Blood Urea Nitrogen 61H, Creatinine 2.1H, Estimat Glomerular Filtration Rate , Glucose Level 148H, Calcium Level 8.6, Phosphorus Level 2.9, Magnesium Level 2.6H, Total Bilirubin 1.1, Direct Bilirubin 0.4H, Aspartate Amino Transf (AST/SGOT) 47H, Alanine Aminotransferase (ALT/SGPT) 73H, Alkaline Phosphatase 179H, Total Protein 6.5L, Albumin 2.7L, Globulin 3.8, Albumin/Globulin Ratio 0.7L, Random Vancomycin Level 13.3 Height (Feet): 5 Height (Inches): 7.00 Weight (Pounds): 221 General Appearance: no apparent distress, confused EENT: TMs normal Neck: supple Cardiovascular: regular rhythm Respiratory/Chest: lungs clear Abdomen: soft Pelvis: normal rectal exam Extremities: non-tender Edema: no edema noted Arm (L), no edema noted Arm (R), no edema noted Leg (L), no edema noted Leg (R), no edema noted Pedal (L), no edema noted Pedal (R), no edema noted Generalized Skin: warm/dry Lymphatic: normal anterior cervical (L), normal anterior cervical (R), normal axillary (L), normal axillary (R), normal inguinal (L), normal inguinal (R), normal other, normal posterior cervical (L), normal posterior cervical (R), normal submandibular (L), normal submandibular (R), normal supraclavicular (L), normal supraclavicular (R) MOISÉS RAMIREZ Nov 30, 2016 21:31
--- NOTE | 2016-11-30 22:48 | Pulmonology Progress Note ---
Assessment/Plan Problems: (1) Coffee ground vomiting (2) Coagulopathy (3) Sepsis (4) Acute pancreatitis (5) Limited mobility in bed (6) Feeding by G-tube (7) Choledocholithiasis (8) Dementia Assessment/Plan improving wbc decreasing amylase decreasing MRI of abdomen pending continue abx for bacteremia. may go to telemetry. Subjective ROS Limited/Unobtainable: No Constitutional: Reports: anorexia, fatigue Respiratory: Reports: hemoptysis, productive cough, shortness of breath, sputum Gastrointestinal/Abdominal: Reports: bloating, blood in stool, diarrhea, nausea , vomiting Neurologic: Reports: weakness Allergies: Coded Allergies: No Known Allergies (Verified , 12/27/08) Objective Last 24 Hour Vital Signs Date Time Temp Pulse Resp B/P Pulse Ox O2 Delivery O2 Flow Rate FiO2 11/30/16 20:00 99.5 89 22 102/68 98 Nasal Cannula 2.0 11/30/16 19:58 Venturi Mask 14.0 55 11/30/16 19:58 78 18 Venturi Mask 14.0 55 11/30/16 19:58 96 Venturi Mask 14.0 55 11/30/16 16:00 93 11/30/16 16:00 97.0 66 21 138/50 98 11/30/16 12:00 101 11/30/16 11:33 98.8 102 20 121/70 96 Venturi Mask 15.0 11/30/16 08:00 93 11/30/16 06:30 80 18 Venturi Mask 14.0 55 11/30/16 06:30 Venturi Mask 14.0 55 11/30/16 06:30 98 Venturi Mask 14.0 55 11/30/16 04:00 100 11/30/16 04:00 99.5 99 20 108/71 98 Venturi Mask 55 11/30/16 00:00 81 11/30/16 00:00 98.4 81 24 97/59 95 Venturi Mask 55 11/29/16 23:10 98.4 Intake and Output 11/29/16 11/30/16 19:00 07:00 Intake Total 75 ml 950.0 ml Output Total 400 ml 450 ml Balance -325 ml 500.0 ml Intake IV Total 75 ml 705.0 ml Tube Feeding 245 ml Output Urine Total 350 ml 450 ml Gastric Drainage Total 50 ml # Bowel Movements 1 General Appearance: no acute distress HEENT: normocephalic, atraumatic, PERRL Respiratory/Chest: chest wall non-tender, normal breath sounds, no respiratory distress, no accessory muscle use Cardiovascular: normal peripheral pulses, normal rate, regular rhythm, no JVD Abdomen: hypoactive bowel sounds, distended, guarding, tender, rebound tenderness Genitourinary: normal external genitalia Extremities: no cyanosis Skin: rash, lesions Neurologic/Psychiatric: order detailer II-XII grossly normal, responsive, motor weakness, disoriented, depressed affect Laboratory Tests 11/30/16 03:40: White Blood Count 18.3H, Red Blood Count 3.63L, Hemoglobin 11.3L, Hematocrit 36.4L, Mean Corpuscular Volume 100H, Mean Corpuscular Hemoglobin 31.0, Mean Corpuscular Hemoglobin Concent 31.0L, Red Cell Distribution Width 14.7, Platelet Count 221, Mean Platelet Volume 8.3, Neutrophils (%) (Auto) , Lymphocytes (%) (Auto) , Monocytes (%) (Auto) , Eosinophils (%) (Auto) , Basophils (%) (Auto) , Differential Total Cells Counted 100, Neutrophils % ( Manual) 83H, Lymphocytes % (Manual) 6L, Monocytes % (Manual) 5, Eosinophils % ( Manual) 1, Basophils % (Manual) 0, Band Neutrophils 5, Platelet Estimate Adequate, Platelet Morphology Normal, Hypochromasia 1+, Anisocytosis 1+, Macrocytosis 1+, Prothrombin Time 52.8H, Prothromb Time International Ratio 4.9H , Activated Partial Thromboplast Time 57H, Sodium Level 153H, Potassium Level 3.6, Chloride Level 110H, Carbon Dioxide Level 27, Anion Gap 16H, Blood Urea Nitrogen 61H, Creatinine 2.1H, Estimat Glomerular Filtration Rate , Glucose Level 148H, Calcium Level 8.6, Phosphorus Level 2.9, Magnesium Level 2.6H, Total Bilirubin 1.1, Direct Bilirubin 0.4H, Aspartate Amino Transf (AST/SGOT) 47H, Alanine Aminotransferase (ALT/SGPT) 73H, Alkaline Phosphatase 179H, Total Protein 6.5L, Albumin 2.7L, Globulin 3.8, Albumin/Globulin Ratio 0.7L, Random Vancomycin Level 13.3 Current Medications Medications (Trade) Dose Ordered Sig/Jamaal Route PRN Reason Start Time Stop Time Status Last Admin Dose Admin Acetaminophen (Tylenol) 650 mg Q4H PRN ORAL Fever 11/28/16 19:00 12/28/16 18:59 11/29/16 22:11 Albuterol/ Ipratropium (DuoNeb 0.5-3(2.5)mg/3ml) 3 ml Q4H PRN HHN Shortness of Breath 11/28/16 15:15 12/03/16 15:14 Clonidine HCl (Catapres) 0.1 mg Q8H PRN GT sbp> 160 11/28/16 15:15 12/28/16 15:14 Dextrose (D5W 1000ml) 1,000 ml @ 85 mls/hr [id number] IV 11/29/16 15:00 12/29/16 14:59 11/30/16 15:23 Dextrose (Dextrose 50%) STAT PRN IV Hypoglycemia 11/28/16 19:00 12/28/16 18:59 Insulin Aspart (NovoLOG) EVERY 6 HOURS SUBQ 11/28/16 19:00 12/28/16 18:59 11/30/16 18:23 Insulin Detemir (Levemir) 8 units Q12HR SUBQ 11/28/16 21:00 12/28/16 20:59 11/30/16 21:59 Lorazepam (Ativan 2mg/ml 1ml) 2 mg Q2H PRN IV agitation 11/28/16 15:15 12/05/16 15:14 11/29/16 06:29 Morphine Sulfate (Morphine Sulfate) 4 mg Q4H PRN IVP Severe Pain (Pain Scale 7-10) 11/28/16 15:15 12/05/16 15:14 11/30/16 04:32 Nitroglycerin (Ntg) 0.4 mg Q5M PRN SL Prn Chest Pain 11/28/16 15:00 12/28/16 14:59 Ondansetron HCl (Zofran) 4 mg Q6H PRN IVP Nausea & Vomiting 11/28/16 17:15 12/28/16 17:14 Pantoprazole (Protonix) 40 mg DAILY IVP 12/01/16 09:00 12/31/16 08:59 Piperacillin Sod/ Tazobactam Sod/ Sodium Chloride (Zosyn/Sodium Chloride) 110 ml @ 27.5 mls/hr Q12HR@0000,1200 IVPB 11/29/16 00:00 12/06/16 00:00 11/30/16 12:28 Polyethylene Glycol (Miralax) 17 gm DAILYPRN PRN ORAL Constipation 11/28/16 19:00 12/28/16 18:59 Vancomycin HCl 1 ea 1 ea DAILY PRN MISC Per rx protocol 11/29/16 09:00 12/29/16 08:59 SONIA ALBERTS Nov 30, 2016 22:48
[2016-12-01] VITALS: BP 98/60
[2016-12-01] MEDS: Piperacillin/Tazobactam 3.375 GM in NS 110 ML IVPB SCH ×2 (00:19→12:12)
[2016-12-01] MEDS: NovoLOG Insulin Flexpen SUBQ SCH ×4 (00:20→17:38)
[2016-12-01 04:00] VITALS: BP 111/56
--- NOTE | 2016-12-01 07:12 | General Progress Note ---
Assessment/Plan Problem List: (1) Hyperglycemia ICD Codes: R73.9 - Hyperglycemia, unspecified SNOMED: 82160310 (2) FABIOLA (acute kidney injury) ICD Codes: N17.9 - Acute kidney failure, unspecified SNOMED: 83176966 (3) Coagulopathy ICD Codes: D68.9 - Coagulopathy SNOMED: 11212996 (4) Acute pancreatitis ICD Codes: K85.90 - Acute pancreatitis without necrosis or infection, unspecified SNOMED: 380676955 Qualifiers: Qualified Codes: K85.10 - Biliary acute pancreatitis without necrosis or infection Assessment/Plan fair glycemic control continue Levemir 8 units bid continue Novolog sliding scale as is Subjective ROS Limited/Unobtainable: Yes Allergies: Coded Allergies: No Known Allergies (Verified , 12/27/08) Subjective events noted - on O2 mask Objective Last 24 Hour Vital Signs Date Time Temp Pulse Resp B/P Pulse Ox O2 Delivery O2 Flow Rate FiO2 12/01/16 06:45 98.6 12/01/16 04:00 97 12/01/16 04:00 100.8 93 20 111/56 98 Nasal Cannula 15.0 12/01/16 00:00 99.0 89 20 98/60 95 Nasal Cannula 15.0 12/01/16 00:00 89 11/30/16 20:00 92 11/30/16 20:00 99.5 89 22 102/68 98 Nasal Cannula 2.0 11/30/16 19:58 Venturi Mask 14.0 55 11/30/16 19:58 78 18 Venturi Mask 14.0 55 11/30/16 19:58 96 Venturi Mask 14.0 55 11/30/16 16:00 93 11/30/16 16:00 97.0 66 21 138/50 98 11/30/16 12:00 101 11/30/16 11:33 98.8 102 20 121/70 96 Venturi Mask 15.0 11/30/16 08:00 93 Intake and Output 11/30/16 12/01/16 19:00 07:00 Intake Total 337.5 ml 1301.0 ml Output Total 350 ml 800 ml Balance -12.5 ml 501.0 ml Intake IV Total 337.5 ml 931.0 ml Tube Feeding 370 ml Output Urine Total 350 ml 800 ml Height (Feet): 5 Height (Inches): 7.00 Weight (Pounds): 221 General Appearance: lethargic Neck: normal alignment Cardiovascular: regular rhythm Respiratory/Chest: decreased breath sounds Abdomen: normal bowel sounds Edema: 1+ Arm (L), 1+ Arm (R), 1+ Leg (L), 1+ Leg (R), 1+ Pedal (L), 1+ Pedal ( R), 1+ Generalized Objective Current Medications Medications (Trade) Dose Ordered Sig/Jamaal Route PRN Reason Start Time Stop Time Status Last Admin Dose Admin Acetaminophen (Tylenol) 650 mg Q4H PRN ORAL Fever 11/28/16 19:00 12/28/16 18:59 12/01/16 05:46 Albuterol/ Ipratropium (DuoNeb 0.5-3(2.5)mg/3ml) 3 ml Q4H PRN HHN Shortness of Breath 11/28/16 15:15 12/03/16 15:14 Clonidine HCl (Catapres) 0.1 mg Q8H PRN GT sbp> 160 11/28/16 15:15 12/28/16 15:14 Dextrose (D5W 1000ml) 1,000 ml @ 85 mls/hr [id number] IV 11/29/16 15:00 12/29/16 14:59 12/01/16 04:43 Dextrose (Dextrose 50%) STAT PRN IV Hypoglycemia 11/28/16 19:00 12/28/16 18:59 Insulin Aspart (NovoLOG) EVERY 6 HOURS SUBQ 11/28/16 19:00 12/28/16 18:59 12/01/16 05:53 Insulin Detemir (Levemir) 8 units Q12HR SUBQ 11/28/16 21:00 12/28/16 20:59 11/30/16 21:59 Lorazepam (Ativan 2mg/ml 1ml) 2 mg Q2H PRN IV agitation 11/28/16 15:15 12/05/16 15:14 11/29/16 06:29 Morphine Sulfate (Morphine Sulfate) 4 mg Q4H PRN IVP Severe Pain (Pain Scale 7-10) 11/28/16 15:15 12/05/16 15:14 11/30/16 04:32 Nitroglycerin (Ntg) 0.4 mg Q5M PRN SL Prn Chest Pain 11/28/16 15:00 12/28/16 14:59 Ondansetron HCl (Zofran) 4 mg Q6H PRN IVP Nausea & Vomiting 11/28/16 17:15 12/28/16 17:14 Pantoprazole (Protonix) 40 mg DAILY IVP 12/01/16 09:00 12/31/16 08:59 Piperacillin Sod/ Tazobactam Sod/ Sodium Chloride (Zosyn/Sodium Chloride) 110 ml @ 27.5 mls/hr Q12HR@0000,1200 IVPB 11/29/16 00:00 12/06/16 00:00 12/01/16 00:19 Polyethylene Glycol (Miralax) 17 gm DAILYPRN PRN ORAL Constipation 11/28/16 19:00 12/28/16 18:59 Vancomycin HCl 1 ea 1 ea DAILY PRN MISC Per rx protocol 11/29/16 09:00 12/29/16 08:59 Item Value Date Time Bedside Blood Glucose 167 mg/dl H 12/01/16 0554 Bedside Blood Glucose 204 mg/dl H 12/01/16 0020 SUZIE FELDER 18, 2017 07:12
[2016-12-01 08:00] VITALS: BP 104/68
[2016-12-01] MEDS: Levemir Flexpen SUBQ SCH ×2 (09:36→20:55)
[2016-12-01] MEDS: Pantoprazole Inj IVP SCH (09:37)
--- NOTE | 2016-12-01 10:00 | General Progress Note ---
Assessment/Plan Problem List: (1) Gallstone pancreatitis ICD Codes: K85.10 - Biliary acute pancreatitis without necrosis or infection SNOMED: 93693840 Assessment/Plan improving labs pending MRCP results ? passed CBD stone ERCP if needed possibly on Saturday if INR is corrected GTF Subjective ROS Limited/Unobtainable: Yes Allergies: Coded Allergies: No Known Allergies (Verified , 12/27/08) Subjective no event Objective Last 24 Hour Vital Signs Date Time Temp Pulse Resp B/P Pulse Ox O2 Delivery O2 Flow Rate FiO2 12/01/16 08:00 97.3 76 18 104/68 95 Venturi Mask 12/01/16 07:56 82 20 Venturi Mask 14.0 55 12/01/16 07:53 Venturi Mask 14.0 55 12/01/16 07:51 95 Venturi Mask 14.0 55 12/01/16 06:45 98.6 12/01/16 04:00 97 12/01/16 04:00 100.8 93 20 111/56 98 Nasal Cannula 15.0 12/01/16 00:00 99.0 89 20 98/60 95 Nasal Cannula 15.0 12/01/16 00:00 89 11/30/16 20:00 92 11/30/16 20:00 99.5 89 22 102/68 98 Nasal Cannula 2.0 11/30/16 19:58 Venturi Mask 14.0 55 11/30/16 19:58 78 18 Venturi Mask 14.0 55 11/30/16 19:58 96 Venturi Mask 14.0 55 11/30/16 16:00 93 11/30/16 16:00 97.0 66 21 138/50 98 11/30/16 12:00 101 11/30/16 11:33 98.8 102 20 121/70 96 Venturi Mask 15.0 Intake and Output 11/30/16 12/01/16 19:00 07:00 Intake Total 337.5 ml 1386.0 ml Output Total 350 ml 800 ml Balance -12.5 ml 586.0 ml Intake IV Total 337.5 ml 1016.0 ml Tube Feeding 370 ml Output Urine Total 350 ml 800 ml Height (Feet): 5 Height (Inches): 7.00 Weight (Pounds): 221 General Appearance: no apparent distress EENT: normal ENT inspection Neck: supple Cardiovascular: normal rate Respiratory/Chest: decreased breath sounds Abdomen: normal bowel sounds, non tender, soft Extremities: non-tender FLOYD MARIANO Dec 01, 2016 10:00
--- NOTE | 2016-12-01 10:51 | General Progress Note ---
Assessment/Plan Status: unchanged Assessment/Plan Acute renal failure due to sepsis , low BP , GI bleed Sepsis Hyperglycemia Choledocholithiasis Aspiration into lower respiratory tract coagulopathy 2 to anticoagulation use hx of At fib hx of CVA seizure disorder pressure ulcer dysphagia, G tube HTN elevated LFTs, declining Plan: no labs today Hydrate- D5 Stop Depakote, high LFTs, check level Avoid Nephrotoxics Monitor renal parameters and H&h Urine studies stop Norvasc and cardura for low bp Per orders Subjective ROS Limited/Unobtainable: Yes Allergies: Coded Allergies: No Known Allergies (Verified , 12/27/08) Objective Last 24 Hour Vital Signs Date Time Temp Pulse Resp B/P Pulse Ox O2 Delivery O2 Flow Rate FiO2 12/01/16 08:00 97.3 76 18 104/68 95 Venturi Mask 12/01/16 08:00 78 12/01/16 07:56 82 20 Venturi Mask 14.0 55 12/01/16 07:53 Venturi Mask 14.0 55 12/01/16 07:51 95 Venturi Mask 14.0 55 12/01/16 06:45 98.6 12/01/16 04:00 97 12/01/16 04:00 100.8 93 20 111/56 98 Nasal Cannula 15.0 12/01/16 00:00 99.0 89 20 98/60 95 Nasal Cannula 15.0 12/01/16 00:00 89 11/30/16 20:00 92 11/30/16 20:00 99.5 89 22 102/68 98 Nasal Cannula 2.0 11/30/16 19:58 Venturi Mask 14.0 55 11/30/16 19:58 78 18 Venturi Mask 14.0 55 11/30/16 19:58 96 Venturi Mask 14.0 55 11/30/16 16:00 93 11/30/16 16:00 97.0 66 21 138/50 98 11/30/16 12:00 101 11/30/16 11:33 98.8 102 20 121/70 96 Venturi Mask 15.0 Intake and Output 11/30/16 12/01/16 19:00 07:00 Intake Total 337.5 ml 1386.0 ml Output Total 350 ml 800 ml Balance -12.5 ml 586.0 ml Intake IV Total 337.5 ml 1016.0 ml Tube Feeding 370 ml Output Urine Total 350 ml 800 ml Height (Feet): 5 Height (Inches): 7.00 Weight (Pounds): 221 General Appearance: no apparent distress Objective other physical exam not changed ALONDRA FULTON 18, 2017 10:51
[2016-12-01 11:13] LABS: MEAN CORPUSCULAR HEMOGLOBIN 31.1 PG (27.0-31.0); MEAN CORPUSCULAR HGB CONC 31.1 G/DL (32.0-36.0); MEAN CORPUSCULAR VOLUME 100 FL (80-99); MEAN PLATELET VOLUME 8.5 FL (6.5-10.1); PLATELET COUNT 234 K/UL (150-450); RED BLOOD COUNT 3.64 M/UL (4.70-6.10); RED CELL DISTRIBUTION WIDTH 14.3 % (11.6-14.8); WHITE BLOOD COUNT 14.9 K/UL (4.8-10.8)
--- NOTE | 2016-12-01 11:34 | Diagnostic Imaging Report ---
Indication: Abnormal CT raising the concern of a possible gallstone pancreatitis. Abdominal pain Technique: MRI of the abdomen was performed in a 1.5 Tita magnet. Pulse sequences obtained include coronal and axial T2 single shot fast spin echo breathhold and respiratory gated coronal T2 3-D M.R.C.P.; this data set was displayed in different projections or MIPs. In addition, multiple coronal oblique thin T2 weighted, fat saturated SE sequences obtained through the CBD. Comparison: CT 11/25/16 Findings: The biliary ducts are dilated. This is both within the liver as well as the CBD. CBD measurement is about 13 mm. There is no evidence of choledocholithiasis. The area of the pancreatic head is enlarged and ill-defined and somewhat confluent with the duodenum which shows marked wall thickening. Findings suggests focal pancreatitis/duodenitis. Neoplasm is not excluded. Mild peripancreatic fluid demonstrated. There is a small amount of free fluid in Morison's pouch and in the left paracolic gutter as well. The main pancreatic duct is nondilated. The remainder of the pancreas parenchyma is grossly unremarkable. Gallbladder is noted and unremarkable in appearance. Gastrostomy is present. Basilar pleural effusions are present. Cardiomegaly is present. Small renal cysts are noted on the left. Lastly, there is a right adrenal mass noted. The mass is isointense to the liver on in phase T1 gradient echo and significantly decreases in signal on out of phase T1 gradient echo, indicative of chemical shift phenomenon which is a sign of micro-lipid composition found in adrenal adenomas. Impression: No evidence of choledocholithiasis. Moderate biliary ductal dilatation is present. Findings may be on the basis of focal pancreatitis involving the head of the pancreas and/or duodenitis as there is marked thickening of the wall the second and third portions of the duodenum. Please correlate clinically. Unremarkable gallbladder. Benign right adrenal adenoma
[2016-12-01 11:37] LABS: ALANINE AMINOTRANSFERASE 55 U/L (3-41); ALBUMIN/GLOBULIN RATIO 0.5 (1.0-2.7); ANION GAP 17 (5-15); ASPARTATE AMINO TRANSFERASE 46 U/L (5-40); CALCIUM 8.5 mg/dL (8.6-10.2); CARBON DIOXIDE 26 mEQ/L (20-30); CHLORIDE 109 mEQ/L (98-107); CREATININE 2.5 mg/dL (0.7-1.2); HEMOLYSIS 2; POTASSIUM 4.1 mEQ/L (3.4-4.9); SODIUM 152 mEQ/L (135-145); TOTAL PROTEIN 6.7 g/dL (6.6-8.7)
[2016-12-01 11:54] LABS: INR 4.1 (0.9-1.1); PROTHROMBIN TIME 43.6 SEC (9.30-11.50)
--- NOTE | 2016-12-01 12:06 | General Progress Note ---
Progress Note Progress Note Afebrile, abdomen softer, less distended. Nothing to add at this time. AUSTIN GAVIRIA Dec 01, 2016 12:06
[2016-12-01 12:11] VITALS: BP 105/67
[2016-12-01 12:22] LABS: BAND NEUTROPHILS % (MANUAL) 4 % (0-8); EOSINOPHILS % (MANUAL) 2 % (0-3); LYMPHOCYTES % (MANUAL) 11 % (20-45); NEUTROPHILS % (MANUAL) 76 % (45-75); TOTAL CELLS COUNTED 100
[2016-12-01 12:23] LABS: BASOPHILS % (MANUAL) 0 % (0-2); PLATELET ESTIMATE ADEQUATE; PLATELET MORPHOLOGY NORMAL
[2016-12-01 12:24] LABS: ANISOCYTOSIS 1+; MACROCYTES 1+
[2016-12-01 12:25] LABS: MICROCYTES OCCASIONAL
--- NOTE | 2016-12-01 13:09 | Pulmonology Progress Note ---
Assessment/Plan Assessment/Plan ASSESSMENT sepsis bacteremia HCAP UTI gallstone pancreatitis upper GI bleeding coagulopathy s/p FFP transfusion dysphagia, G tube dementia acute hypoxemic respiratory failure- on VM acute renal failure ( multifactorial 2 to sepsis, hypotension, GI bleeding) hypernatremia -2 to dehydration, dehydration elevated transaminase ST - 2 to sepsis PAF DM PLAN OF CARE remains on pulmonary toilet titrate O2 to keep sat above 92% abx, ID follows sputum cx, blood cx + Citrobacter ( liekly real), SCON (possible contaminant, repeat blood cx ECHO with EF 40% and RVSP of [address] likely 2 to sepsis off any AV teodora jacinto remains in SR Coumadin on hold check INR in am IVF, creat trending up, still hypernatremia nephro follwos etiology of ARF liekly multifactorial- sepsis, hypotension, GI bleeding, dehydration monitor renal parameters, lytes avoid nephrotoxic, off Depakote monitor BP, off all anti HTN CT A/P + cholelithiasis, dilated CBD, pancreatitis lipase trending down MRCP no evidence of choledocholithiases GI follows HH remains stable, at baseline per GI -ERCP on Saturday if needed, if INR therapeutic- s surgery follows, no surgical issues at this time LFT trending down ?passed stone BS management with SS of insulin and Levemir, endo follows, [id number] at goal case discussed and evaluated by supervising physician Subjective Allergies: Coded Allergies: No Known Allergies (Verified , 12/27/08) Subjective persistent leukocytosis but with trend down, afebrile transferred from ICU remains on VM, unable to downgrade creat and Na trending up Objective Last 24 Hour Vital Signs Date Time Temp Pulse Resp B/P Pulse Ox O2 Delivery O2 Flow Rate FiO2 12/01/16 12:44 84 12/01/16 12:11 98.2 85 18 105/67 98 Venturi Mask 12/01/16 08:00 97.3 76 18 104/68 95 Venturi Mask 12/01/16 08:00 78 12/01/16 07:56 82 20 Venturi Mask 14.0 55 12/01/16 07:53 Venturi Mask 14.0 55 12/01/16 07:51 95 Venturi Mask 14.0 55 12/01/16 06:45 98.6 12/01/16 04:00 97 12/01/16 04:00 100.8 93 20 111/56 98 Nasal Cannula 15.0 12/01/16 00:00 99.0 89 20 98/60 95 Nasal Cannula 15.0 12/01/16 00:00 89 11/30/16 20:00 92 11/30/16 20:00 99.5 89 22 102/68 98 Nasal Cannula 2.0 11/30/16 19:58 Venturi Mask 14.0 55 11/30/16 19:58 78 18 Venturi Mask 14.0 55 11/30/16 19:58 96 Venturi Mask 14.0 55 11/30/16 16:00 93 11/30/16 16:00 97.0 66 21 138/50 98 Intake and Output 11/30/16 12/01/16 19:00 07:00 Intake Total 337.5 ml 1386.0 ml Output Total 350 ml 800 ml Balance -12.5 ml 586.0 ml Intake IV Total 337.5 ml 1016.0 ml Tube Feeding 370 ml Output Urine Total 350 ml 800 ml General Appearance: no acute distress HEENT: normocephalic, atraumatic, other - VM 55% Respiratory/Chest: lungs clear - with moderate air exchange Cardiovascular: normal rate, regular rhythm, no JVD Abdomen: normal bowel sounds, soft, non tender - distended , other - G tube Neurologic/Psychiatric: abnormal gait, alert Musculoskeletal: atrophy - BLE Laboratory Tests 12/01/16 09:30: White Blood Count 14.9H, Red Blood Count 3.64L, Hemoglobin 11.3L, Hematocrit 36.4L, Mean Corpuscular Volume 100H, Mean Corpuscular Hemoglobin 31.1H, Mean Corpuscular Hemoglobin Concent 31.1L, Red Cell Distribution Width 14.3, Platelet Count 234, Mean Platelet Volume 8.5, Neutrophils (%) (Auto) , Lymphocytes (%) (Auto) , Monocytes (%) (Auto) , Eosinophils (%) (Auto) , Basophils (%) (Auto) , Differential Total Cells Counted 100, Neutrophils % ( Manual) 76H, Lymphocytes % (Manual) 11L, Monocytes % (Manual) 7, Eosinophils % ( Manual) 2, Basophils % (Manual) 0, Band Neutrophils 4, Platelet Estimate Adequate, Platelet Morphology Normal, Anisocytosis 1+, Microcytosis Occasional, Macrocytosis 1+, Prothrombin Time 43.6H, Prothromb Time International Ratio 4.1H , Activated Partial Thromboplast Time 70H, Sodium Level 152H, Potassium Level 4.1, Chloride Level 109H, Carbon Dioxide Level 26, Anion Gap 17H, Blood Urea Nitrogen 70H, Creatinine 2.5H, Estimat Glomerular Filtration Rate , Glucose Level 217H, Calcium Level 8.5L, Total Bilirubin 0.9, Aspartate Amino Transf (AST /SGOT) 46H, Alanine Aminotransferase (ALT/SGPT) 55H, Alkaline Phosphatase 159H, Total Protein 6.7, Albumin 2.5L, Globulin 4.2, Albumin/Globulin Ratio 0.5L Current Medications Medications (Trade) Dose Ordered Sig/Jamaal Route PRN Reason Start Time Stop Time Status Last Admin Dose Admin Acetaminophen (Tylenol) 650 mg Q4H PRN ORAL Fever 11/28/16 19:00 12/28/16 18:59 12/01/16 05:46 Albuterol/ Ipratropium (DuoNeb 0.5-3(2.5)mg/3ml) 3 ml Q4H PRN HHN Shortness of Breath 11/28/16 15:15 12/03/16 15:14 Clonidine HCl (Catapres) 0.1 mg Q8H PRN GT sbp> 160 11/28/16 15:15 12/28/16 15:14 Dextrose (D5W 1000ml) 1,000 ml @ 85 mls/hr [id number] IV 11/29/16 15:00 12/29/16 14:59 12/01/16 04:43 Dextrose (Dextrose 50%) STAT PRN IV Hypoglycemia 11/28/16 19:00 12/28/16 18:59 Insulin Aspart (NovoLOG) EVERY 6 HOURS SUBQ 11/28/16 19:00 12/28/16 18:59 12/01/16 12:13 Insulin Detemir (Levemir) 8 units Q12HR SUBQ 11/28/16 21:00 12/28/16 20:59 12/01/16 09:36 Lorazepam (Ativan 2mg/ml 1ml) 2 mg Q2H PRN IV agitation 11/28/16 15:15 12/05/16 15:14 11/29/16 06:29 Morphine Sulfate (Morphine Sulfate) 4 mg Q4H PRN IVP Severe Pain (Pain Scale 7-10) 11/28/16 15:15 12/05/16 15:14 11/30/16 04:32 Nitroglycerin (Ntg) 0.4 mg Q5M PRN SL Prn Chest Pain 11/28/16 15:00 12/28/16 14:59 Ondansetron HCl (Zofran) 4 mg Q6H PRN IVP Nausea & Vomiting 11/28/16 17:15 12/28/16 17:14 Pantoprazole (Protonix) 40 mg DAILY IVP 12/01/16 09:00 12/31/16 08:59 12/01/16 09:37 Piperacillin Sod/ Tazobactam Sod/ Sodium Chloride (Zosyn/Sodium Chloride) 110 ml @ 27.5 mls/hr Q12HR@0000,1200 IVPB 11/29/16 00:00 12/06/16 00:00 12/01/16 12:12 Polyethylene Glycol (Miralax) 17 gm DAILYPRN PRN ORAL Constipation 11/28/16 19:00 12/28/16 18:59 Vancomycin HCl 1 ea 1 ea DAILY PRN MISC Per rx protocol 11/29/16 09:00 12/29/16 08:59 Obi ([facility])Yahaira NP Dec 01, 2016 13:09
--- NOTE | 2016-12-01 14:24 | Infectious Diseases Prog Note ---
Assessment/Plan Problems: (1) HCAP (healthcare-associated pneumonia) Assessment & Plan: continue vancomycin and zosyn, monitor CXR, await sputum culture, pulmonary is following (2) UTI (urinary tract infection) Assessment & Plan: already on zosyn, await urine culture (3) Sepsis Assessment & Plan: with coag negative staph which is most likely contaminant , and Citrobacter diversus which is real , source most likely GI or tract . already on zosyn , needs source control to remove obstruction of CBD with possible ERCP. (4) Choledocholithiasis Assessment & Plan: possible ascending cholangitis ,continue zosyn and vancomycin , recommend MRCP for further evaluation , and ERCP for source control , GI is following (5) FABIOLA (acute kidney injury) Assessment & Plan: due to sepsis, continue hydration, avoid nephrotoxic meds (6) Hyperglycemia Assessment & Plan: due to pancreatitis , continue insulin , and titrate to keep glucose level between 80-120 (7) Coagulopathy Assessment & Plan: due to coumadin, on hold, tranfuse FFP to revers INR, cardiology is following (8) Acute pancreatitis Assessment & Plan: complicated with intraabdominal phlegmon , will continue wide spectrum antibiotics therapy, may need ERCP for source control to relief CBD if really obstructed. (9) Coffee ground vomiting Assessment & Plan: due to coagulopathy, from coumadin, monitor H/H ,transfuse blood as needed , give FFP to reverse INR. GI and hematology are following (10) Common bile duct (CBD) obstruction Assessment & Plan: recommend MRCP for further evaluation and ERCP to remove the obstruction once hemodynamically stable. GI is following Subjective ROS Limited/Unobtainable: Yes Allergies: Coded Allergies: No Known Allergies (Verified , 12/27/08) Subjective he is on Ventimask for high flow oxygen , doesn't follow commands . nonverbal, not in distress Objective Vital Signs Last 24 Hour Vital Signs Date Time Temp Pulse Resp B/P Pulse Ox O2 Delivery O2 Flow Rate FiO2 12/01/16 12:44 84 12/01/16 12:11 98.2 85 18 105/67 98 Venturi Mask 12/01/16 08:00 97.3 76 18 104/68 95 Venturi Mask 12/01/16 08:00 78 12/01/16 07:56 82 20 Venturi Mask 14.0 55 12/01/16 07:53 Venturi Mask 14.0 55 12/01/16 07:51 95 Venturi Mask 14.0 55 12/01/16 06:45 98.6 12/01/16 04:00 97 12/01/16 04:00 100.8 93 20 111/56 98 Nasal Cannula 15.0 12/01/16 00:00 99.0 89 20 98/60 95 Nasal Cannula 15.0 12/01/16 00:00 89 11/30/16 20:00 92 11/30/16 20:00 99.5 89 22 102/68 98 Nasal Cannula 2.0 11/30/16 19:58 Venturi Mask 14.0 55 11/30/16 19:58 78 18 Venturi Mask 14.0 55 11/30/16 19:58 96 Venturi Mask 14.0 55 11/30/16 16:00 93 11/30/16 16:00 97.0 66 21 138/50 98 Height (Feet): 5 Height (Inches): 7.00 Weight (Pounds): 221 General Appearance: WD/WN, no acute distress HEENT: normocephalic Respiratory/Chest: chest wall non-tender, no respiratory distress, no accessory muscle use, decreased breath sounds, crackles/rales Cardiovascular: normal peripheral pulses, normal rate, regular rhythm, no gallop/murmur Abdomen: normal bowel sounds, soft, non tender, no organomegaly, non distended , no mass Extremities: no cyanosis, no clubbing Skin: no rash, no lesions Laboratory Tests Test 12/01/16 09:30 White Blood Count 14.9 K/UL (4.8-10.8) H Red Blood Count 3.64 M/UL (4.70-6.10) L Hemoglobin 11.3 G/DL (14.2-18.0) L Hematocrit 36.4 % (42.0-52.0) L Mean Corpuscular Volume 100 FL (80-99) H Mean Corpuscular Hemoglobin 31.1 PG (27.0-31.0) H Mean Corpuscular Hemoglobin Concent 31.1 G/DL (32.0-36.0) L Red Cell Distribution Width 14.3 % (11.6-14.8) Platelet Count 234 K/UL (150-450) Mean Platelet Volume 8.5 FL (6.5-10.1) Neutrophils (%) (Auto) % (45.0-75.0) Lymphocytes (%) (Auto) % (20.0-45.0) Monocytes (%) (Auto) % (1.0-10.0) Eosinophils (%) (Auto) % (0.0-3.0) Basophils (%) (Auto) % (0.0-2.0) Differential Total Cells Counted 100 Neutrophils % (Manual) 76 % (45-75) H Lymphocytes % (Manual) 11 % (20-45) L Monocytes % (Manual) 7 % (1-10) Eosinophils % (Manual) 2 % (0-3) Basophils % (Manual) 0 % (0-2) Band Neutrophils 4 % (0-8) Platelet Estimate Adequate Platelet Morphology Normal Anisocytosis 1+ Microcytosis Occasional Macrocytosis 1+ Prothrombin Time 43.6 SEC (9.30-11.50) H Prothromb Time International Ratio 4.1 (0.9-1.1) H Activated Partial Thromboplast Time 70 SEC (23-33) H Sodium Level 152 mEQ/L (135-145) H Potassium Level 4.1 mEQ/L (3.4-4.9) Chloride Level 109 mEQ/L (98-107) H Carbon Dioxide Level 26 mEQ/L (20-30) Anion Gap 17 (5-15) H Blood Urea Nitrogen 70 mg/dL (7-23) H Creatinine 2.5 mg/dL (0.7-1.2) H Estimat Glomerular Filtration Rate mL/min (>60) Glucose Level 217 mg/dL (74-106) H Calcium Level 8.5 mg/dL (8.6-10.2) L Total Bilirubin 0.9 mg/dL (0.0-1.2) Aspartate Amino Transf (AST/SGOT) 46 U/L (5-40) H Alanine Aminotransferase (ALT/SGPT) 55 U/L (3-41) H Alkaline Phosphatase 159 U/L (40-129) H Total Protein 6.7 g/dL (6.6-8.7) Albumin 2.5 g/dL (3.5-5.2) L Globulin 4.2 g/dL Albumin/Globulin Ratio 0.5 (1.0-2.7) L Current Medications Medications (Trade) Dose Ordered Sig/Jamaal Route PRN Reason Start Time Stop Time Status Last Admin Dose Admin Acetaminophen (Tylenol) 650 mg Q4H PRN ORAL Fever 11/28/16 19:00 12/28/16 18:59 12/01/16 05:46 Albuterol/ Ipratropium (DuoNeb 0.5-3(2.5)mg/3ml) 3 ml Q4H PRN HHN Shortness of Breath 11/28/16 15:15 12/03/16 15:14 Clonidine HCl (Catapres) 0.1 mg Q8H PRN GT sbp> 160 11/28/16 15:15 12/28/16 15:14 Dextrose (D5W 1000ml) 1,000 ml @ 85 mls/hr [id number] IV 11/29/16 15:00 12/29/16 14:59 12/01/16 04:43 Dextrose (Dextrose 50%) STAT PRN IV Hypoglycemia 11/28/16 19:00 12/28/16 18:59 Insulin Aspart (NovoLOG) EVERY 6 HOURS SUBQ 11/28/16 19:00 12/28/16 18:59 12/01/16 12:13 Insulin Detemir (Levemir) 8 units Q12HR SUBQ 11/28/16 21:00 12/28/16 20:59 12/01/16 09:36 Lorazepam (Ativan 2mg/ml 1ml) 2 mg Q2H PRN IV agitation 11/28/16 15:15 12/05/16 15:14 11/29/16 06:29 Morphine Sulfate (Morphine Sulfate) 4 mg Q4H PRN IVP Severe Pain (Pain Scale 7-10) 11/28/16 15:15 12/05/16 15:14 11/30/16 04:32 Nitroglycerin (Ntg) 0.4 mg Q5M PRN SL Prn Chest Pain 11/28/16 15:00 12/28/16 14:59 Ondansetron HCl (Zofran) 4 mg Q6H PRN IVP Nausea & Vomiting 11/28/16 17:15 12/28/16 17:14 Pantoprazole (Protonix) 40 mg DAILY IVP 12/01/16 09:00 12/31/16 08:59 12/01/16 09:37 Piperacillin Sod/ Tazobactam Sod/ Sodium Chloride (Zosyn/Sodium Chloride) 110 ml @ 27.5 mls/hr Q12HR@0000,1200 IVPB 11/29/16 00:00 12/06/16 00:00 12/01/16 12:12 Polyethylene Glycol (Miralax) 17 gm DAILYPRN PRN ORAL Constipation 11/28/16 19:00 12/28/16 18:59 Vancomycin HCl 1 ea 1 ea DAILY PRN MISC Per rx protocol 11/29/16 09:00 12/29/16 08:59 Ariana Acevedo M.D. Dec 01, 2016 14:24
--- NOTE | 2016-12-01 14:25 | Cardiac Electrophysiology PN ---
Assessment/Plan Assessment/Plan 1. Sinus tachycardia due to sepsis. History of atrial fibrillation but now in sinus rhythm. 2. Paroxysmal atrial fibrillation. Coumadin is on hold until the INR comes to therapeutic range. Off of any AV teodora jacinto. Echo EF Normal 3. Sepsis. On broad-spectrum antibiotic 4. Status post percutaneous endoscopic gastrostomy placement, had abdominal MRI that showed No evidence of choledocholithiasis. Moderate biliary ductal dilatation is present. Findings may be on the basis of focal pancreatitis involving the head of the pancreas and/or duodenitis as there is marked thickening of the wall the second and third portions of the duodenum. Please correlate clinically. Unremarkable gallbladder.Benign right adrenal adenoma 5. Hypernatremia secondary to dehydration. 6. Coffee-ground emesis. F/U per Dr. Wilson. 7. Pancreatitis. DW RN and nurse charge rn Subjective Subjective Comfortable on tele with no events overnight.MRCP pending. Objective Last 24 Hour Vital Signs Date Time Temp Pulse Resp B/P Pulse Ox O2 Delivery O2 Flow Rate FiO2 12/01/16 12:44 84 12/01/16 12:11 98.2 85 18 105/67 98 Venturi Mask 12/01/16 08:00 97.3 76 18 104/68 95 Venturi Mask 12/01/16 08:00 78 12/01/16 07:56 82 20 Venturi Mask 14.0 55 12/01/16 07:53 Venturi Mask 14.0 55 12/01/16 07:51 95 Venturi Mask 14.0 55 12/01/16 06:45 98.6 12/01/16 04:00 97 12/01/16 04:00 100.8 93 20 111/56 98 Nasal Cannula 15.0 12/01/16 00:00 99.0 89 20 98/60 95 Nasal Cannula 15.0 12/01/16 00:00 89 11/30/16 20:00 92 11/30/16 20:00 99.5 89 22 102/68 98 Nasal Cannula 2.0 11/30/16 19:58 Venturi Mask 14.0 55 11/30/16 19:58 78 18 Venturi Mask 14.0 55 11/30/16 19:58 96 Venturi Mask 14.0 55 11/30/16 16:00 93 11/30/16 16:00 97.0 66 21 138/50 98 Intake and Output 11/30/16 12/01/16 19:00 07:00 Intake Total 337.5 ml 1386.0 ml Output Total 350 ml 800 ml Balance -12.5 ml 586.0 ml Intake IV Total 337.5 ml 1016.0 ml Tube Feeding 370 ml Output Urine Total 350 ml 800 ml Laboratory Tests Test 12/01/16 09:30 White Blood Count 14.9 K/UL (4.8-10.8) H Red Blood Count 3.64 M/UL (4.70-6.10) L Hemoglobin 11.3 G/DL (14.2-18.0) L Hematocrit 36.4 % (42.0-52.0) L Mean Corpuscular Volume 100 FL (80-99) H Mean Corpuscular Hemoglobin 31.1 PG (27.0-31.0) H Mean Corpuscular Hemoglobin Concent 31.1 G/DL (32.0-36.0) L Red Cell Distribution Width 14.3 % (11.6-14.8) Platelet Count 234 K/UL (150-450) Mean Platelet Volume 8.5 FL (6.5-10.1) Neutrophils (%) (Auto) % (45.0-75.0) Lymphocytes (%) (Auto) % (20.0-45.0) Monocytes (%) (Auto) % (1.0-10.0) Eosinophils (%) (Auto) % (0.0-3.0) Basophils (%) (Auto) % (0.0-2.0) Differential Total Cells Counted 100 Neutrophils % (Manual) 76 % (45-75) H Lymphocytes % (Manual) 11 % (20-45) L Monocytes % (Manual) 7 % (1-10) Eosinophils % (Manual) 2 % (0-3) Basophils % (Manual) 0 % (0-2) Band Neutrophils 4 % (0-8) Platelet Estimate Adequate Platelet Morphology Normal Anisocytosis 1+ Microcytosis Occasional Macrocytosis 1+ Prothrombin Time 43.6 SEC (9.30-11.50) H Prothromb Time International Ratio 4.1 (0.9-1.1) H Activated Partial Thromboplast Time 70 SEC (23-33) H Sodium Level 152 mEQ/L (135-145) H Potassium Level 4.1 mEQ/L (3.4-4.9) Chloride Level 109 mEQ/L (98-107) H Carbon Dioxide Level 26 mEQ/L (20-30) Anion Gap 17 (5-15) H Blood Urea Nitrogen 70 mg/dL (7-23) H Creatinine 2.5 mg/dL (0.7-1.2) H Estimat Glomerular Filtration Rate mL/min (>60) Glucose Level 217 mg/dL (74-106) H Calcium Level 8.5 mg/dL (8.6-10.2) L Total Bilirubin 0.9 mg/dL (0.0-1.2) Aspartate Amino Transf (AST/SGOT) 46 U/L (5-40) H Alanine Aminotransferase (ALT/SGPT) 55 U/L (3-41) H Alkaline Phosphatase 159 U/L (40-129) H Total Protein 6.7 g/dL (6.6-8.7) Albumin 2.5 g/dL (3.5-5.2) L Globulin 4.2 g/dL Albumin/Globulin Ratio 0.5 (1.0-2.7) L Objective NECK: No JVD. LUNGS: Coarse rhonchi. CARDIOVASCULAR: Tachycardic S1 and S2 with no murmur. ABDOMEN: Soft. G-tube.Distended EXTREMITIES: 1+ pitting edema. BRYON AC Dec 01, 2016 14:25
[2016-12-01 16:00] VITALS: BP_SYST 110; BP_SYST 91; BP_DIAS 49; BP_DIAS 55
[2016-12-01 20:00] VITALS: BP 102/66
--- NOTE | 2016-12-01 22:30 | General Progress Note ---
Assessment/Plan Assessment/Plan Assessment/Plan ASSESSMENT: 1. Coagulopathy with supertherapeutic - now improved, can consider to restart coumadin 2. Anemia 2/2 chronic disease, is without major changes, hgb >10 3. Leukocytosis secondary to underlying infection with pancreatitis and elevated lipase. 4. A-fibrillation was on coumadin before 5. r/o gastrointestinal bleed. 6. Dysphagia. 7. Dementia. 8. Hyperglycemia. 9. Sepsis. RECS: 1. Monitor counts. 2. Transfuse as needed 3. Anemia w/u if hgb <10 4. Okay to restart coumadin if cleared by other services 5. Consider inr 2-3 once coumadin restarted 6. Antibiotics as needed. 7. Discussed with staff. 8. Continue PPI. Thank you, Larry Ramirez MD Subjective Constitutional: Reports: no symptoms HEENT: Reports: no symptoms Cardiovascular: Reports: no symptoms Gastrointestinal/Abdominal: Reports: no symptoms Genitourinary: Reports: no symptoms Neurologic/Psychiatric: Reports: no symptoms Endocrine: Reports: no symptoms Hematologic/Lymphatic: Reports: no symptoms Allergies: Coded Allergies: No Known Allergies (Verified , 12/27/08) Objective Last 24 Hour Vital Signs Date Time Temp Pulse Resp B/P Pulse Ox O2 Delivery O2 Flow Rate FiO2 12/01/16 21:50 97 Venturi Mask 14.0 55 12/01/16 21:50 79 18 Venturi Mask 14.0 55 12/01/16 21:50 Venturi Mask 14.0 55 12/01/16 20:00 96.3 86 19 102/66 96 Room Air 12/01/16 20:00 90 12/01/16 16:00 97.9 65 18 110/49 100 Room Air 12/01/16 16:00 90 12/01/16 12:44 84 12/01/16 12:11 98.2 85 18 105/67 98 Venturi Mask 12/01/16 08:00 97.3 76 18 104/68 95 Venturi Mask 12/01/16 08:00 78 12/01/16 07:56 82 20 Venturi Mask 14.0 55 12/01/16 07:53 Venturi Mask 14.0 55 12/01/16 07:51 95 Venturi Mask 14.0 55 12/01/16 06:45 98.6 12/01/16 04:00 97 12/01/16 04:00 100.8 93 20 111/56 98 Nasal Cannula 15.0 12/01/16 00:00 99.0 89 20 98/60 95 Nasal Cannula 15.0 12/01/16 00:00 89 Intake and Output 11/30/16 12/01/16 19:00 07:00 Intake Total 337.5 ml 1386.0 ml Output Total 350 ml 800 ml Balance -12.5 ml 586.0 ml Intake IV Total 337.5 ml 1016.0 ml Tube Feeding 370 ml Output Urine Total 350 ml 800 ml Laboratory Tests 12/01/16 09:30: White Blood Count 14.9H, Red Blood Count 3.64L, Hemoglobin 11.3L, Hematocrit 36.4L, Mean Corpuscular Volume 100H, Mean Corpuscular Hemoglobin 31.1H, Mean Corpuscular Hemoglobin Concent 31.1L, Red Cell Distribution Width 14.3, Platelet Count 234, Mean Platelet Volume 8.5, Neutrophils (%) (Auto) , Lymphocytes (%) (Auto) , Monocytes (%) (Auto) , Eosinophils (%) (Auto) , Basophils (%) (Auto) , Differential Total Cells Counted 100, Neutrophils % ( Manual) 76H, Lymphocytes % (Manual) 11L, Monocytes % (Manual) 7, Eosinophils % ( Manual) 2, Basophils % (Manual) 0, Band Neutrophils 4, Platelet Estimate Adequate, Platelet Morphology Normal, Anisocytosis 1+, Microcytosis Occasional, Macrocytosis 1+, Prothrombin Time 43.6H, Prothromb Time International Ratio 4.1H , Activated Partial Thromboplast Time 70H, Sodium Level 152H, Potassium Level 4.1, Chloride Level 109H, Carbon Dioxide Level 26, Anion Gap 17H, Blood Urea Nitrogen 70H, Creatinine 2.5H, Estimat Glomerular Filtration Rate , Glucose Level 217H, Calcium Level 8.5L, Total Bilirubin 0.9, Aspartate Amino Transf (AST /SGOT) 46H, Alanine Aminotransferase (ALT/SGPT) 55H, Alkaline Phosphatase 159H, Total Protein 6.7, Albumin 2.5L, Globulin 4.2, Albumin/Globulin Ratio 0.5L Height (Feet): 5 Height (Inches): 7.00 Weight (Pounds): 221 General Appearance: no apparent distress EENT: TMs normal Neck: supple Cardiovascular: normal rate Respiratory/Chest: lungs clear Abdomen: soft Edema: no edema noted Arm (L), no edema noted Arm (R), no edema noted Leg (L), no edema noted Leg (R), no edema noted Pedal (L), no edema noted Pedal (R), no edema noted Generalized Edema: mild edema Neurologic: alert Skin: warm/dry Lymphatic: normal anterior cervical (L), normal anterior cervical (R), normal axillary (L), normal axillary (R), normal inguinal (L), normal inguinal (R), normal other, normal posterior cervical (L), normal posterior cervical (R), normal submandibular (L), normal submandibular (R), normal supraclavicular (L), normal supraclavicular (R) MOISÉS RAMIREZ Dec 01, 2016 22:30
[2016-12-02] VITALS: BP 113/53
[2016-12-02] MEDS: Piperacillin/Tazobactam 3.375 GM in NS 110 ML IVPB SCH ×2 (01:24→11:11)
[2016-12-02] MEDS: NovoLOG Insulin Flexpen SUBQ SCH ×4 (01:25→17:24)
[2016-12-02 04:00] VITALS: BP 102/66
[2016-12-02 07:15] LABS: MEAN CORPUSCULAR HEMOGLOBIN 30.8 PG (27.0-31.0); MEAN CORPUSCULAR HGB CONC 31.3 G/DL (32.0-36.0); MEAN CORPUSCULAR VOLUME 98 FL (80-99); MEAN PLATELET VOLUME 8.1 FL (6.5-10.1); PLATELET COUNT 255 K/UL (150-450); RED BLOOD COUNT 3.29 M/UL (4.70-6.10); RED CELL DISTRIBUTION WIDTH 14.4 % (11.6-14.8); WHITE BLOOD COUNT 15.1 K/UL (4.8-10.8)
[2016-12-02 07:21] LABS: ALANINE AMINOTRANSFERASE 42 U/L (3-41); ALBUMIN/GLOBULIN RATIO 0.6 (1.0-2.7); ANION GAP 14 (5-15); ASPARTATE AMINO TRANSFERASE 37 U/L (5-40); CALCIUM 8.1 mg/dL (8.6-10.2); CARBON DIOXIDE 27 mEQ/L (20-30); CHLORIDE 114 mEQ/L (98-107); CREATININE 2.4 mg/dL (0.7-1.2); HEMOLYSIS 2; POTASSIUM 3.7 mEQ/L (3.4-4.9); SODIUM 155 mEQ/L (135-145); TOTAL PROTEIN 6.1 g/dL (6.6-8.7)
[2016-12-02 07:22] LABS: CRP QUANT 28.7 mg/dL (< 0.5); MAGNESIUM 2.9 mg/dL (1.7-2.5); PHOSPHORUS 3.4 mg/dL (2.5-4.8)
[2016-12-02 07:36] LABS: INR 4.2 (0.9-1.1); PROTHROMBIN TIME 41.9 SEC (9.30-11.50)
[2016-12-02 08:04] LABS: ANISOCYTOSIS 1+; BAND NEUTROPHILS % (MANUAL) 0 % (0-8); BASOPHILS % (MANUAL) 1 % (0-2); EOSINOPHILS % (MANUAL) 2 % (0-3); HYPOCHROMASIA 1+; LYMPHOCYTES % (MANUAL) 5 % (20-45); NEUTROPHILS % (MANUAL) 87 % (45-75); PLATELET ESTIMATE ADEQUATE; PLATELET MORPHOLOGY NORMAL; TOTAL CELLS COUNTED 100
[2016-12-02 08:29] VITALS: BP 102/67
--- NOTE | 2016-12-02 09:09 | General Progress Note ---
Assessment/Plan Problem List: (1) Hyperglycemia ICD Codes: R73.9 - Hyperglycemia, unspecified SNOMED: 47156950 (2) FABIOLA (acute kidney injury) ICD Codes: N17.9 - Acute kidney failure, unspecified SNOMED: 36368835 (3) Choledocholithiasis ICD Codes: K80.50 - Calculus of bile duct without cholangitis or cholecystitis without obstruction SNOMED: 464346285 (4) Pressure ulcer ICD Codes: L89.90 - Pressure ulcer SNOMED: 557108146 (5) Fever ICD Codes: R50.9 - Fever SNOMED: 136917515 (6) Anemia ICD Codes: D64.9 - Anemia SNOMED: 178147072 (7) Cellulitis ICD Codes: L03.90 - Cellulitis SNOMED: 206082376 (8) Seizure disorder ICD Codes: G40.909 - Seizure disorder SNOMED: 127123212 (9) Sepsis ICD Codes: A41.9 - Sepsis, unspecified organism SNOMED: 32004562 Qualifiers: Qualified Codes: A41.9 - Sepsis, unspecified organism (10) Venous stasis ulcers ICD Codes: I83.009 - Venous stasis ulcers SNOMED: 772354517 (11) Bilateral lower extremity edema (12) Dementia ICD Codes: F03.90 - Unspecified dementia without behavioral disturbance SNOMED: 37444651 Qualifiers: Qualified Codes: F01.50 - Vascular dementia without behavioral disturbance (13) Coffee ground vomiting ICD Codes: K92.0 - Hematemesis SNOMED: 81953924 (14) Leukocytosis ICD Codes: D72.829 - Elevated white blood cell count, unspecified SNOMED: 660577955, 800606332 (15) UTI (urinary tract infection) ICD Codes: N39.0 - Urinary tract infection, site not specified SNOMED: 83530784 Status: progressing Assessment/Plan dka resolved sepsis afebrile abx per id reviwed chart and labs clinically improving elev lft Subjective ROS Limited/Unobtainable: Yes Constitutional: Reports: no symptoms Allergies: Coded Allergies: No Known Allergies (Verified , 12/27/08) Objective Last 24 Hour Vital Signs Date Time Temp Pulse Resp B/P Pulse Ox O2 Delivery O2 Flow Rate FiO2 12/02/16 08:29 98.1 84 20 102/67 99 Venturi Mask 15.0 3/19/17 07:08 Venturi Mask 14.0 55 12/02/16 07:08 100 Venturi Mask 14.0 55 12/02/16 07:08 82 18 Venturi Mask 14.0 55 12/02/16 04:00 97.7 85 20 102/66 96 Simple Mask 15.0 12/02/16 04:00 84 12/02/16 00:00 86 12/02/16 00:00 98.4 80 20 113/53 96 Room Air 12/01/16 21:50 97 Venturi Mask 14.0 55 12/01/16 21:50 79 18 Venturi Mask 14.0 55 12/01/16 21:50 Venturi Mask 14.0 55 12/01/16 20:00 96.3 86 19 102/66 96 Room Air 12/01/16 20:00 90 12/01/16 16:00 97.9 65 18 110/49 100 Room Air 12/01/16 16:00 90 12/01/16 12:44 84 12/01/16 12:11 98.2 85 18 105/67 98 Venturi Mask Intake and Output 12/01/16 12/02/16 19:00 07:00 Intake Total 830.0 ml 650.0 ml Output Total 300 ml 600 ml Balance 530.0 ml 50.0 ml Intake IV Total 620.0 ml 620.0 ml Tube Feeding 210 ml 30 ml Output Urine Total 300 ml 600 ml # Bowel Movements 2 Laboratory Tests 12/01/16 09:30: White Blood Count 14.9H, Red Blood Count 3.64L, Hemoglobin 11.3L, Hematocrit 36.4L, Mean Corpuscular Volume 100H, Mean Corpuscular Hemoglobin 31.1H, Mean Corpuscular Hemoglobin Concent 31.1L, Red Cell Distribution Width 14.3, Platelet Count 234, Mean Platelet Volume 8.5, Neutrophils (%) (Auto) , Lymphocytes (%) (Auto) , Monocytes (%) (Auto) , Eosinophils (%) (Auto) , Basophils (%) (Auto) , Differential Total Cells Counted 100, Neutrophils % ( Manual) 76H, Lymphocytes % (Manual) 11L, Monocytes % (Manual) 7, Eosinophils % ( Manual) 2, Basophils % (Manual) 0, Band Neutrophils 4, Platelet Estimate Adequate, Platelet Morphology Normal, Anisocytosis 1+, Microcytosis Occasional, Macrocytosis 1+, Prothrombin Time 43.6H, Prothromb Time International Ratio 4.1H , Activated Partial Thromboplast Time 70H, Sodium Level 152H, Potassium Level 4.1, Chloride Level 109H, Carbon Dioxide Level 26, Anion Gap 17H, Blood Urea Nitrogen 70H, Creatinine 2.5H, Estimat Glomerular Filtration Rate , Glucose Level 217H, Calcium Level 8.5L, Total Bilirubin 0.9, Aspartate Amino Transf (AST /SGOT) 46H, Alanine Aminotransferase (ALT/SGPT) 55H, Alkaline Phosphatase 159H, Total Protein 6.7, Albumin 2.5L, Globulin 4.2, Albumin/Globulin Ratio 0.5L 12/02/16 06:30: White Blood Count 15.1H, Red Blood Count 3.29L, Hemoglobin 10.1L, Hematocrit 32.4L, Mean Corpuscular Volume 98, Mean Corpuscular Hemoglobin 30.8, Mean Corpuscular Hemoglobin Concent 31.3L, Red Cell Distribution Width 14.4, Platelet Count 255, Mean Platelet Volume 8.1, Neutrophils (%) (Auto) , Lymphocytes (%) (Auto) , Monocytes (%) (Auto) , Eosinophils (%) (Auto) , Basophils (%) (Auto) , Differential Total Cells Counted 100, Neutrophils % ( Manual) 87H, Lymphocytes % (Manual) 5L, Monocytes % (Manual) 5, Eosinophils % ( Manual) 2, Basophils % (Manual) 1, Band Neutrophils 0, Platelet Estimate Adequate, Platelet Morphology Normal, Anisocytosis 1+, Prothrombin Time 41.9H, Prothromb Time International Ratio 4.2H, Activated Partial Thromboplast Time 60H , Sodium Level 155H, Potassium Level 3.7, Chloride Level 114H, Carbon Dioxide Level 27, Anion Gap 14, Blood Urea Nitrogen 70H, Creatinine 2.4H, Estimat Glomerular Filtration Rate , Glucose Level 186H, Calcium Level 8.1L, Total Bilirubin 0.6, Aspartate Amino Transf (AST/SGOT) 37, Alanine Aminotransferase ( ALT/SGPT) 42H, Alkaline Phosphatase 131H, Total Protein 6.1L, Albumin 2.3L, Globulin 3.8, Albumin/Globulin Ratio 0.6L, Hypochromasia 1+, Uric Acid 6.0, Phosphorus Level 3.4, Magnesium Level 2.9H, C-Reactive Protein, Quantitative 28.7H, Pro-B-Type Natriuretic Peptide 1124H Height (Feet): 5 Height (Inches): 7.00 Weight (Pounds): 221 EENT: PERRL/EOMI Neck: supple Cardiovascular: normal rate Respiratory/Chest: lungs clear Abdomen: soft Aliza Faria MD Dec 02, 2016 09:09
[2016-12-02] MEDS: Pantoprazole Inj IVP SCH (09:12)
[2016-12-02] MEDS: Levemir Flexpen SUBQ SCH ×2 (09:12→21:36)
[2016-12-02 09:21] LABS: ABG ALLEN TEST POSITIVE; ABG BASE EXCESS 1.7; ABG PCO2 40.1 mmHg (35.0-45.0)
--- NOTE | 2016-12-02 09:30 | Pulmonology Progress Note ---
Assessment/Plan Assessment/Plan ASSESSMENT sepsis bacteremia HCAP UTI gallstone pancreatitis upper GI bleeding coagulopathy s/p FFP transfusion dysphagia, G tube dementia acute hypoxemic respiratory failure- on VM acute renal failure ( multifactorial 2 to sepsis, hypotension, GI bleeding) hypernatremia -2 to dehydration, dehydration elevated transaminase ST - 2 to sepsis PAF DM PLAN OF CARE remains on ABG this am reviewed, unable to be weaned from pulmonary toilet titrate O2 to keep sat above 92% abx, ID follows sputum cx, blood cx + Citrobacter ( likely real), SCON (possible contaminant, blood cx repeated as per ID ECHO with EF 40% and RVSP of [address] likely 2 to sepsis off any AV teodora jacinto remains in SR Coumadin on hold INR 4.2 IVF, creat trending up, still hypernatremia nephro follows etiology of ARF liekly multifactorial- sepsis, hypotension, GI bleeding, dehydration monitor renal parameters, lytes avoid nephrotoxic, off Depakote monitor BP, off all anti HTN CT A/P + cholelithiasis, dilated CBD, pancreatitis lipase trending down MRCP no evidence of choledocholithiases GI follows HH remains stable, at baseline per GI -ERCP on Saturday if needed, if INR therapeutic- surgery follows, no surgical issues at this time LFT trending down ?passed stone BS management with SS of insulin and Levemir, endo follows, [id number] at goal case discussed and evaluated by supervising physician Subjective Allergies: Coded Allergies: No Known Allergies (Verified , 12/27/08) Subjective persistent leukocytosis , afebrile transferred from ICU remains on , Objective Last 24 Hour Vital Signs Date Time Temp Pulse Resp B/P Pulse Ox O2 Delivery O2 Flow Rate FiO2 12/02/16 08:29 98.1 84 20 102/67 99 Venturi Mask 15.0 12/02/16 07:08 Venturi Mask 14.0 55 12/02/16 07:08 100 Venturi Mask 14.0 55 12/02/16 07:08 82 18 Venturi Mask 14.0 55 12/02/16 04:00 97.7 85 20 102/66 96 Simple Mask 15.0 12/02/16 04:00 84 12/02/16 00:00 86 12/02/16 00:00 98.4 80 20 113/53 96 Room Air 12/01/16 21:50 97 Venturi Mask 14.0 55 12/01/16 21:50 79 18 Venturi Mask 14.0 55 12/01/16 21:50 Venturi Mask 14.0 55 12/01/16 20:00 96.3 86 19 102/66 96 Room Air 12/01/16 20:00 90 12/01/16 16:00 97.9 65 18 110/49 100 Room Air 12/01/16 16:00 90 12/01/16 12:44 84 12/01/16 12:11 98.2 85 18 105/67 98 Venturi Mask Intake and Output 12/01/16 12/02/16 19:00 07:00 Intake Total 830.0 ml 650.0 ml Output Total 300 ml 600 ml Balance 530.0 ml 50.0 ml Intake IV Total 620.0 ml 620.0 ml Tube Feeding 210 ml 30 ml Output Urine Total 300 ml 600 ml # Bowel Movements 2 Objective General Appearance: no acute distress HEENT: normocephalic, atraumatic, other - VM 55% Respiratory/Chest: lungs clear - with moderate air exchange Cardiovascular: normal rate, regular rhythm, no JVD Abdomen: normal bowel sounds, soft, non tender - distended , other - G tube Neurologic/Psychiatric: abnormal gait, alert Musculoskeletal: atrophy - BLE Microbiology Date/Time Source Procedure Growth Status 11/30/16 22:30 Blood Blood Culture - Preliminary NO GROWTH AFTER 24 HOURS Resulted Laboratory Tests 12/01/16 09:30: White Blood Count 14.9H, Red Blood Count 3.64L, Hemoglobin 11.3L, Hematocrit 36.4L, Mean Corpuscular Volume 100H, Mean Corpuscular Hemoglobin 31.1H, Mean Corpuscular Hemoglobin Concent 31.1L, Red Cell Distribution Width 14.3, Platelet Count 234, Mean Platelet Volume 8.5, Neutrophils (%) (Auto) , Lymphocytes (%) (Auto) , Monocytes (%) (Auto) , Eosinophils (%) (Auto) , Basophils (%) (Auto) , Differential Total Cells Counted 100, Neutrophils % ( Manual) 76H, Lymphocytes % (Manual) 11L, Monocytes % (Manual) 7, Eosinophils % ( Manual) 2, Basophils % (Manual) 0, Band Neutrophils 4, Platelet Estimate Adequate, Platelet Morphology Normal, Anisocytosis 1+, Microcytosis Occasional, Macrocytosis 1+, Prothrombin Time 43.6H, Prothromb Time International Ratio 4.1H , Activated Partial Thromboplast Time 70H, Sodium Level 152H, Potassium Level 4.1, Chloride Level 109H, Carbon Dioxide Level 26, Anion Gap 17H, Blood Urea Nitrogen 70H, Creatinine 2.5H, Estimat Glomerular Filtration Rate , Glucose Level 217H, Calcium Level 8.5L, Total Bilirubin 0.9, Aspartate Amino Transf (AST /SGOT) 46H, Alanine Aminotransferase (ALT/SGPT) 55H, Alkaline Phosphatase 159H, Total Protein 6.7, Albumin 2.5L, Globulin 4.2, Albumin/Globulin Ratio 0.5L 12/02/16 06:30: White Blood Count 15.1H, Red Blood Count 3.29L, Hemoglobin 10.1L, Hematocrit 32.4L, Mean Corpuscular Volume 98, Mean Corpuscular Hemoglobin 30.8, Mean Corpuscular Hemoglobin Concent 31.3L, Red Cell Distribution Width 14.4, Platelet Count 255, Mean Platelet Volume 8.1, Neutrophils (%) (Auto) , Lymphocytes (%) (Auto) , Monocytes (%) (Auto) , Eosinophils (%) (Auto) , Basophils (%) (Auto) , Differential Total Cells Counted 100, Neutrophils % ( Manual) 87H, Lymphocytes % (Manual) 5L, Monocytes % (Manual) 5, Eosinophils % ( Manual) 2, Basophils % (Manual) 1, Band Neutrophils 0, Platelet Estimate Adequate, Platelet Morphology Normal, Anisocytosis 1+, Prothrombin Time 41.9H, Prothromb Time International Ratio 4.2H, Activated Partial Thromboplast Time 60H , Sodium Level 155H, Potassium Level 3.7, Chloride Level 114H, Carbon Dioxide Level 27, Anion Gap 14, Blood Urea Nitrogen 70H, Creatinine 2.4H, Estimat Glomerular Filtration Rate , Glucose Level 186H, Calcium Level 8.1L, Total Bilirubin 0.6, Aspartate Amino Transf (AST/SGOT) 37, Alanine Aminotransferase ( ALT/SGPT) 42H, Alkaline Phosphatase 131H, Total Protein 6.1L, Albumin 2.3L, Globulin 3.8, Albumin/Globulin Ratio 0.6L, Hypochromasia 1+, Uric Acid 6.0, Phosphorus Level 3.4, Magnesium Level 2.9H, C-Reactive Protein, Quantitative 28.7H, Pro-B-Type Natriuretic Peptide 1124H 12/02/16 09:19: Arterial Blood pH 7.430, Arterial Blood Partial Pressure CO2 40.1, Arterial Blood Partial Pressure O2 70.1L, Arterial Blood HCO3 26.1H, Arterial Blood Oxygen Saturation 94.1, Arterial Blood Base Excess 1.7, Carlos Test Positive Current Medications Medications (Trade) Dose Ordered Sig/Jamaal Route PRN Reason Start Time Stop Time Status Last Admin Dose Admin Acetaminophen (Tylenol) 650 mg Q4H PRN ORAL Fever 11/28/16 19:00 12/28/16 18:59 12/01/16 05:46 Albuterol/ Ipratropium (DuoNeb 0.5-3(2.5)mg/3ml) 3 ml Q4H PRN HHN Shortness of Breath 11/28/16 15:15 12/03/16 15:14 Clonidine HCl (Catapres) 0.1 mg Q8H PRN GT sbp> 160 11/28/16 15:15 12/28/16 15:14 Dextrose (D5W 1000ml) 1,000 ml @ 85 mls/hr [id number] IV 11/29/16 15:00 12/29/16 14:59 12/02/16 01:24 Dextrose (Dextrose 50%) STAT PRN IV Hypoglycemia 11/28/16 19:00 12/28/16 18:59 Insulin Aspart (NovoLOG) EVERY 6 HOURS SUBQ 11/28/16 19:00 12/28/16 18:59 12/02/16 05:08 Insulin Detemir (Levemir) 8 units Q12HR SUBQ 11/28/16 21:00 12/28/16 20:59 12/02/16 09:12 Lorazepam (Ativan 2mg/ml 1ml) 2 mg Q2H PRN IV agitation 11/28/16 15:15 12/05/16 15:14 11/29/16 06:29 Morphine Sulfate (Morphine Sulfate) 4 mg Q4H PRN IVP Severe Pain (Pain Scale 7-10) 11/28/16 15:15 12/05/16 15:14 11/30/16 04:32 Nitroglycerin (Ntg) 0.4 mg Q5M PRN SL Prn Chest Pain 11/28/16 15:00 12/28/16 14:59 Ondansetron HCl (Zofran) 4 mg Q6H PRN IVP Nausea & Vomiting 11/28/16 17:15 12/28/16 17:14 Pantoprazole (Protonix) 40 mg DAILY IVP 12/01/16 09:00 12/31/16 08:59 12/02/16 09:12 Piperacillin Sod/ Tazobactam Sod/ Sodium Chloride (Zosyn/Sodium Chloride) 110 ml @ 27.5 mls/hr Q12HR@0000,1200 IVPB 11/29/16 00:00 12/06/16 00:00 12/02/16 01:24 Polyethylene Glycol (Miralax) 17 gm DAILYPRN PRN ORAL Constipation 11/28/16 19:00 12/28/16 18:59 Vancomycin HCl 1 ea 1 ea DAILY PRN MISC Per rx protocol 11/29/16 09:00 12/29/16 08:59 Yahaira Crocker NP ([facility]) Dec 02, 2016 09:30
--- NOTE | 2016-12-02 09:40 | General Progress Note ---
Assessment/Plan Problem List: (1) Gallstone pancreatitis ICD Codes: K85.10 - Biliary acute pancreatitis without necrosis or infection SNOMED: 07746701 Assessment/Plan improving labs pending MRCP results ? passed CBD stone ERCP if needed GTF fu INR Subjective ROS Limited/Unobtainable: Yes Allergies: Coded Allergies: No Known Allergies (Verified , 12/27/08) Subjective no event Objective Last 24 Hour Vital Signs Date Time Temp Pulse Resp B/P Pulse Ox O2 Delivery O2 Flow Rate FiO2 12/02/16 08:29 98.1 84 20 102/67 99 Venturi Mask 15.0 12/02/16 07:08 Venturi Mask 14.0 55 12/02/16 07:08 100 Venturi Mask 14.0 55 12/02/16 07:08 82 18 Venturi Mask 14.0 55 12/02/16 04:00 97.7 85 20 102/66 96 Simple Mask 15.0 12/02/16 04:00 84 12/02/16 00:00 86 12/02/16 00:00 98.4 80 20 113/53 96 Room Air 12/01/16 21:50 97 Venturi Mask 14.0 55 12/01/16 21:50 79 18 Venturi Mask 14.0 55 12/01/16 21:50 Venturi Mask 14.0 55 12/01/16 20:00 96.3 86 19 102/66 96 Room Air 12/01/16 20:00 90 12/01/16 16:00 97.9 65 18 110/49 100 Room Air 12/01/16 16:00 90 12/01/16 12:44 84 12/01/16 12:11 98.2 85 18 105/67 98 Venturi Mask Intake and Output 12/01/16 12/02/16 19:00 07:00 Intake Total 830.0 ml 650.0 ml Output Total 300 ml 600 ml Balance 530.0 ml 50.0 ml Intake IV Total 620.0 ml 620.0 ml Tube Feeding 210 ml 30 ml Output Urine Total 300 ml 600 ml # Bowel Movements 2 Laboratory Tests 12/02/16 06:30: White Blood Count 15.1H, Red Blood Count 3.29L, Hemoglobin 10.1L, Hematocrit 32.4L, Mean Corpuscular Volume 98, Mean Corpuscular Hemoglobin 30.8, Mean Corpuscular Hemoglobin Concent 31.3L, Red Cell Distribution Width 14.4, Platelet Count 255, Mean Platelet Volume 8.1, Neutrophils (%) (Auto) , Lymphocytes (%) (Auto) , Monocytes (%) (Auto) , Eosinophils (%) (Auto) , Basophils (%) (Auto) , Differential Total Cells Counted 100, Neutrophils % ( Manual) 87H, Lymphocytes % (Manual) 5L, Monocytes % (Manual) 5, Eosinophils % ( Manual) 2, Basophils % (Manual) 1, Band Neutrophils 0, Platelet Estimate Adequate, Platelet Morphology Normal, Hypochromasia 1+, Anisocytosis 1+, Prothrombin Time 41.9H, Prothromb Time International Ratio 4.2H, Activated Partial Thromboplast Time 60H, Sodium Level 155H, Potassium Level 3.7, Chloride Level 114H, Carbon Dioxide Level 27, Anion Gap 14, Blood Urea Nitrogen 70H, Creatinine 2.4H, Estimat Glomerular Filtration Rate , Glucose Level 186H, Uric Acid 6.0, Calcium Level 8.1L, Phosphorus Level 3.4, Magnesium Level 2.9H, Total Bilirubin 0.6, Aspartate Amino Transf (AST/SGOT) 37, Alanine Aminotransferase ( ALT/SGPT) 42H, Alkaline Phosphatase 131H, C-Reactive Protein, Quantitative 28.7H , Pro-B-Type Natriuretic Peptide 1124H, Total Protein 6.1L, Albumin 2.3L, Globulin 3.8, Albumin/Globulin Ratio 0.6L 12/02/16 09:19: Arterial Blood pH 7.430, Arterial Blood Partial Pressure CO2 40.1, Arterial Blood Partial Pressure O2 70.1L, Arterial Blood HCO3 26.1H, Arterial Blood Oxygen Saturation 94.1, Arterial Blood Base Excess 1.7, Carlos Test Positive Height (Feet): 5 Height (Inches): 7.00 Weight (Pounds): 221 General Appearance: no apparent distress EENT: TMs normal Neck: supple Cardiovascular: normal rate Respiratory/Chest: decreased breath sounds Abdomen: normal bowel sounds, non tender, soft Extremities: non-tender FLOYD MARIANO Dec 02, 2016 09:40
--- NOTE | 2016-12-02 11:41 | General Progress Note ---
Progress Note Progress Note Afebrile, less tenderness, no mass in abdomen. MRCP: dilated CBD, no obvious stone, pancreas less inflamed. WBC 15K, LFT's normalizing, last amylase nl. Resolving gallstone pancreatitis with severe duodenitis, head of pancreas resolving inflammation. Nothing surgical at this time. AUSTIN GAVIRIA Dec 02, 2016 11:41
[2016-12-02 11:57] VITALS: BP 107/65
--- NOTE | 2016-12-02 13:07 | General Progress Note ---
Assessment/Plan Status: unchanged Status Narrative Cr 2.4 stable Assessment/Plan Acute renal failure due to sepsis , low BP , GI bleed Sepsis Hyperglycemia Choledocholithiasis Aspiration into lower respiratory tract coagulopathy 2 to anticoagulation use hx of At fib hx of CVA seizure disorder pressure ulcer dysphagia, G tube HTN elevated LFTs, declining Plan: Hydrate- D5 Stop Depakote, high LFTs, check level Avoid Nephrotoxics Monitor renal parameters and H&h Urine studies stop Norvasc and cardura for low bp Per orders Subjective ROS Limited/Unobtainable: Yes Allergies: Coded Allergies: No Known Allergies (Verified , 12/27/08) Objective Last 24 Hour Vital Signs Date Time Temp Pulse Resp B/P Pulse Ox O2 Delivery O2 Flow Rate FiO2 12/02/16 11:57 98.3 87 20 107/65 99 Venturi Mask 15.0 12/02/16 08:29 98.1 84 20 102/67 99 Venturi Mask 15.0 12/02/16 08:00 82 12/02/16 07:08 Venturi Mask 14.0 55 12/02/16 07:08 100 Venturi Mask 14.0 55 12/02/16 07:08 82 18 Venturi Mask 14.0 55 12/02/16 04:00 97.7 85 20 102/66 96 Simple Mask 15.0 12/02/16 04:00 84 12/02/16 00:00 86 12/02/16 00:00 98.4 80 20 113/53 96 Room Air 12/01/16 21:50 97 Venturi Mask 14.0 55 12/01/16 21:50 79 18 Venturi Mask 14.0 55 12/01/16 21:50 Venturi Mask 14.0 55 12/01/16 20:00 96.3 86 19 102/66 96 Room Air 12/01/16 20:00 90 12/01/16 16:00 97.9 65 18 110/49 100 Room Air 12/01/16 16:00 90 Intake and Output 12/01/16 12/02/16 19:00 07:00 Intake Total 830.0 ml 650.0 ml Output Total 300 ml 600 ml Balance 530.0 ml 50.0 ml Intake IV Total 620.0 ml 620.0 ml Tube Feeding 210 ml 30 ml Output Urine Total 300 ml 600 ml # Bowel Movements 2 Laboratory Tests 12/02/16 06:30: White Blood Count 15.1H, Red Blood Count 3.29L, Hemoglobin 10.1L, Hematocrit 32.4L, Mean Corpuscular Volume 98, Mean Corpuscular Hemoglobin 30.8, Mean Corpuscular Hemoglobin Concent 31.3L, Red Cell Distribution Width 14.4, Platelet Count 255, Mean Platelet Volume 8.1, Neutrophils (%) (Auto) , Lymphocytes (%) (Auto) , Monocytes (%) (Auto) , Eosinophils (%) (Auto) , Basophils (%) (Auto) , Differential Total Cells Counted 100, Neutrophils % ( Manual) 87H, Lymphocytes % (Manual) 5L, Monocytes % (Manual) 5, Eosinophils % ( Manual) 2, Basophils % (Manual) 1, Band Neutrophils 0, Platelet Estimate Adequate, Platelet Morphology Normal, Hypochromasia 1+, Anisocytosis 1+, Prothrombin Time 41.9H, Prothromb Time International Ratio 4.2H, Activated Partial Thromboplast Time 60H, Sodium Level 155H, Potassium Level 3.7, Chloride Level 114H, Carbon Dioxide Level 27, Anion Gap 14, Blood Urea Nitrogen 70H, Creatinine 2.4H, Estimat Glomerular Filtration Rate , Glucose Level 186H, Uric Acid 6.0, Calcium Level 8.1L, Phosphorus Level 3.4, Magnesium Level 2.9H, Total Bilirubin 0.6, Aspartate Amino Transf (AST/SGOT) 37, Alanine Aminotransferase ( ALT/SGPT) 42H, Alkaline Phosphatase 131H, C-Reactive Protein, Quantitative 28.7H , Pro-B-Type Natriuretic Peptide 1124H, Total Protein 6.1L, Albumin 2.3L, Globulin 3.8, Albumin/Globulin Ratio 0.6L 12/02/16 09:19: Arterial Blood pH 7.430, Arterial Blood Partial Pressure CO2 40.1, Arterial Blood Partial Pressure O2 70.1L, Arterial Blood HCO3 26.1H, Arterial Blood Oxygen Saturation 94.1, Arterial Blood Base Excess 1.7, Carlos Test Positive Height (Feet): 5 Height (Inches): 7.00 Weight (Pounds): 221 General Appearance: no apparent distress Cardiovascular: tachycardia Respiratory/Chest: decreased breath sounds Abdomen: soft, distended Objective other physical exam not changed ALONDRA FULTON Dec 02, 2016 13:07
[2016-12-02 16:00] VITALS: BP 113/67
--- NOTE | 2016-12-02 17:19 | Wound Care Consultation ---
Wound Assessment Wound Assessment : Wound Present on Admission: No New Wound: No Status Change of Wound: No Wound Location Body Site Modif: right Wound Location Body Site: head Cachorro Test: Does not Cachorro Traumatic Injury Wounds: Skin Tear Wound Thickness: Partial Thickness Wound Length: 2.0 Wound Width: 1.0 Wound Depth: 0.1 Percent of Wound Kenefic/Red: 100 Wound Drainage Description: Serosanguineous Wound Drainage Amount: Scant Wound Drainage Odor: None/Absent Tissue Surrounding Wound: Intact Wound General Appearance: Reddened Wound Comment #1 skin tear on right hand. Recommendation -Keep clean and dry -Turn and reposition -Skin tear on right hand Cleanse with saline pat dry apply adaptic cover with bordered gauze daily and PRN soiled/dislodged -Assess and f/u accordingly for any changes HOLLI GODINEZ RN Dec 02, 2016 17:19
[2016-12-02 20:00] VITALS: BP 95/60
--- NOTE | 2016-12-02 22:49 | General Progress Note ---
Assessment/Plan Assessment/Plan Assessment/Plan ASSESSMENT: 1. Coagulopathy with supertherapeutic - now improved, can consider to restart coumadin 2. Anemia 2/2 chronic disease, is without major changes, hgb >10 3. Leukocytosis secondary to underlying infection with pancreatitis and elevated lipase. 4. A-fibrillation was on coumadin before 5. r/o gastrointestinal bleed. 6. Dysphagia. 7. Dementia. 8. Hyperglycemia. 9. Sepsis. RECS: 1. Monitor counts. 2. Transfuse as needed 3. Anemia w/u if hgb <10 4. Okay to restart coumadin if cleared by other services 5. Consider inr 2-3 once coumadin restarted 6. Antibiotics as needed. 7. Discussed with staff. 8. Continue PPI. Thank you, Larry Ramirez MD Subjective Constitutional: Reports: no symptoms HEENT: Reports: no symptoms Cardiovascular: Reports: no symptoms Respiratory: Reports: no symptoms Gastrointestinal/Abdominal: Reports: no symptoms Genitourinary: Reports: no symptoms Neurologic/Psychiatric: Reports: no symptoms Endocrine: Reports: no symptoms Hematologic/Lymphatic: Reports: no symptoms Allergies: Coded Allergies: No Known Allergies (Verified , 12/27/08) Objective Last 24 Hour Vital Signs Date Time Temp Pulse Resp B/P Pulse Ox O2 Delivery O2 Flow Rate FiO2 12/02/16 20:00 93 12/02/16 20:00 98.4 94 18 95/60 95 Room Air 12/02/16 19:30 100 Venturi Mask 14.0 55 12/02/16 19:30 Venturi Mask 14.0 55 12/02/16 19:30 90 20 Venturi Mask 14.0 55 12/02/16 16:00 91 12/02/16 16:00 98.8 91 19 113/67 94 Venturi Mask 12/02/16 12:00 94 12/02/16 11:57 98.3 87 20 107/65 99 Venturi Mask 15.0 12/02/16 08:29 98.1 84 20 102/67 99 Venturi Mask 15.0 12/02/16 08:00 82 12/02/16 07:08 Venturi Mask 14.0 55 12/02/16 07:08 100 Venturi Mask 14.0 55 12/02/16 07:08 82 18 Venturi Mask 14.0 55 12/02/16 04:00 97.7 85 20 102/66 96 Simple Mask 15.0 12/02/16 04:00 84 12/02/16 00:00 86 12/02/16 00:00 98.4 80 20 113/53 96 Room Air Intake and Output 12/01/16 12/02/16 19:00 07:00 Intake Total 830.0 ml 690.0 ml Output Total 300 ml 600 ml Balance 530.0 ml 90.0 ml Intake IV Total 620.0 ml 620.0 ml Tube Feeding 210 ml 70 ml Output Urine Total 300 ml 600 ml # Bowel Movements 2 Laboratory Tests 12/02/16 06:30: White Blood Count 15.1H, Red Blood Count 3.29L, Hemoglobin 10.1L, Hematocrit 32.4L, Mean Corpuscular Volume 98, Mean Corpuscular Hemoglobin 30.8, Mean Corpuscular Hemoglobin Concent 31.3L, Red Cell Distribution Width 14.4, Platelet Count 255, Mean Platelet Volume 8.1, Neutrophils (%) (Auto) , Lymphocytes (%) (Auto) , Monocytes (%) (Auto) , Eosinophils (%) (Auto) , Basophils (%) (Auto) , Differential Total Cells Counted 100, Neutrophils % ( Manual) 87H, Lymphocytes % (Manual) 5L, Monocytes % (Manual) 5, Eosinophils % ( Manual) 2, Basophils % (Manual) 1, Band Neutrophils 0, Platelet Estimate Adequate, Platelet Morphology Normal, Hypochromasia 1+, Anisocytosis 1+, Prothrombin Time 41.9H, Prothromb Time International Ratio 4.2H, Activated Partial Thromboplast Time 60H, Sodium Level 155H, Potassium Level 3.7, Chloride Level 114H, Carbon Dioxide Level 27, Anion Gap 14, Blood Urea Nitrogen 70H, Creatinine 2.4H, Estimat Glomerular Filtration Rate , Glucose Level 186H, Uric Acid 6.0, Calcium Level 8.1L, Phosphorus Level 3.4, Magnesium Level 2.9H, Total Bilirubin 0.6, Aspartate Amino Transf (AST/SGOT) 37, Alanine Aminotransferase ( ALT/SGPT) 42H, Alkaline Phosphatase 131H, C-Reactive Protein, Quantitative 28.7H , Pro-B-Type Natriuretic Peptide 1124H, Total Protein 6.1L, Albumin 2.3L, Globulin 3.8, Albumin/Globulin Ratio 0.6L 12/02/16 09:19: Arterial Blood pH 7.430, Arterial Blood Partial Pressure CO2 40.1, Arterial Blood Partial Pressure O2 70.1L, Arterial Blood HCO3 26.1H, Arterial Blood Oxygen Saturation 94.1, Arterial Blood Base Excess 1.7, Carlos Test Positive Height (Feet): 5 Height (Inches): 7.00 Weight (Pounds): 221 General Appearance: alert EENT: TMs normal Neck: supple Cardiovascular: normal rate Respiratory/Chest: lungs clear Abdomen: soft Extremities: non-tender Edema: no edema noted Arm (L), no edema noted Arm (R), no edema noted Leg (L), no edema noted Leg (R), no edema noted Pedal (L), no edema noted Pedal (R), no edema noted Generalized Neurologic: alert Skin: warm/dry Lymphatic: normal anterior cervical (L), normal anterior cervical (R), normal axillary (L), normal axillary (R), normal inguinal (L), normal inguinal (R), normal other, normal posterior cervical (L), normal posterior cervical (R), normal submandibular (L), normal submandibular (R), normal supraclavicular (L), normal supraclavicular (R) MOISÉS RAMIREZ Dec 02, 2016 22:49
[2016-12-03 00:50] VITALS: BP 96/59
[2016-12-03] MEDS: Piperacillin/Tazobactam 3.375 GM in NS 110 ML IVPB SCH ×2 (01:01→12:46)
[2016-12-03] MEDS: NovoLOG Insulin Flexpen SUBQ SCH ×4 (01:08→17:19)
[2016-12-03 04:00] VITALS: BP 105/65
[2016-12-03 07:59] VITALS: BP 115/69
[2016-12-03 08:27] LABS: ALANINE AMINOTRANSFERASE 37 U/L (3-41); ALBUMIN/GLOBULIN RATIO 0.7 (1.0-2.7); ANION GAP 21 (5-15); ASPARTATE AMINO TRANSFERASE 50 U/L (5-40); CALCIUM 7.7 mg/dL (8.6-10.2); CARBON DIOXIDE 22 mEQ/L (20-30); CHLORIDE 113 mEQ/L (98-107); CREATININE 2.5 mg/dL (0.7-1.2); HEMOLYSIS 81; POTASSIUM 4.8 mEQ/L (3.4-4.9); SODIUM 156 mEQ/L (135-145); TOTAL PROTEIN 5.5 g/dL (6.6-8.7)
[2016-12-03] MEDS: Pantoprazole Inj IVP SCH (08:57)
[2016-12-03] MEDS: Levemir Flexpen SUBQ SCH ×2 (08:58→21:48)
[2016-12-03 09:55] LABS: BASOPHILS % (AUTO) 0.4 % (0.0-2.0); EOSINOPHILS % (AUTO) 2.6 % (0.0-3.0); LYMPHOCYTES % (AUTO) 9.6 % (20.0-45.0); MEAN CORPUSCULAR HEMOGLOBIN 30.6 PG (27.0-31.0); MEAN CORPUSCULAR HGB CONC 31.2 G/DL (32.0-36.0); MEAN CORPUSCULAR VOLUME 98 FL (80-99); MEAN PLATELET VOLUME 8.1 FL (6.5-10.1); NEUTROPHILS % (AUTO) 82.3 % (45.0-75.0); PLATELET COUNT 305 K/UL (150-450); RED BLOOD COUNT 3.15 M/UL (4.70-6.10); RED CELL DISTRIBUTION WIDTH 14.2 % (11.6-14.8); WHITE BLOOD COUNT 15.8 K/UL (4.8-10.8)
[2016-12-03] MEDS ORDERED: Vancomycin 1.5 GM in D5W 325 ML IVPB ONE (10:00)
[2016-12-03 10:10] LABS: INR 3.1 (0.9-1.1); PROTHROMBIN TIME 30.9 SEC (9.30-11.50)
--- NOTE | 2016-12-03 10:29 | General Progress Note ---
Assessment/Plan Problem List: (1) Hyperglycemia ICD Codes: R73.9 - Hyperglycemia, unspecified SNOMED: 66019847 (2) FABIOLA (acute kidney injury) ICD Codes: N17.9 - Acute kidney failure, unspecified SNOMED: 58866775 (3) Choledocholithiasis ICD Codes: K80.50 - Calculus of bile duct without cholangitis or cholecystitis without obstruction SNOMED: 201188185 (4) Pressure ulcer ICD Codes: L89.90 - Pressure ulcer SNOMED: 389496016 (5) Fever ICD Codes: R50.9 - Fever SNOMED: 227960578 (6) Anemia ICD Codes: D64.9 - Anemia SNOMED: 335736576 (7) Cellulitis ICD Codes: L03.90 - Cellulitis SNOMED: 772213595 (8) Seizure disorder ICD Codes: G40.909 - Seizure disorder SNOMED: 222333986 (9) Sepsis ICD Codes: A41.9 - Sepsis, unspecified organism SNOMED: 83012129 Qualifiers: Qualified Codes: A41.9 - Sepsis, unspecified organism (10) Venous stasis ulcers ICD Codes: I83.009 - Venous stasis ulcers SNOMED: 746694553 (11) Bilateral lower extremity edema (12) Dementia ICD Codes: F03.90 - Unspecified dementia without behavioral disturbance SNOMED: 26125369 Qualifiers: Qualified Codes: F01.50 - Vascular dementia without behavioral disturbance (13) Coffee ground vomiting ICD Codes: K92.0 - Hematemesis SNOMED: 23214995 (14) Leukocytosis ICD Codes: D72.829 - Elevated white blood cell count, unspecified SNOMED: 090077576, 841370280 (15) UTI (urinary tract infection) ICD Codes: N39.0 - Urinary tract infection, site not specified SNOMED: 64996689 Status: progressing Assessment/Plan dka resolved sepsis no recent gi bleed improving reviewed meds and chart elev lft Subjective ROS Limited/Unobtainable: Yes Allergies: Coded Allergies: No Known Allergies (Verified , 12/27/08) Objective Last 24 Hour Vital Signs Date Time Temp Pulse Resp B/P Pulse Ox O2 Delivery O2 Flow Rate FiO2 12/03/16 08:07 84 12/03/16 07:59 97.9 82 20 115/69 100 Venturi Mask 15.0 12/03/16 07:27 Venturi Mask 14.0 55 12/03/16 07:26 100 Venturi Mask 14.0 55 12/03/16 07:26 88 20 Venturi Mask 14.0 55 12/03/16 04:00 98.1 86 20 105/65 100 Venturi Mask 12/03/16 04:00 86 12/03/16 00:50 98.2 89 20 96/59 100 Venturi Mask 12/03/16 00:00 86 12/02/16 20:00 93 12/02/16 20:00 98.4 94 18 95/60 95 Room Air 12/02/16 19:30 100 Venturi Mask 14.0 55 12/02/16 19:30 Venturi Mask 14.0 55 12/02/16 19:30 90 20 Venturi Mask 14.0 55 12/02/16 16:00 91 12/02/16 16:00 98.8 91 19 113/67 94 Venturi Mask 12/02/16 12:00 94 12/02/16 11:57 98.3 87 20 107/65 99 Venturi Mask 15.0 Intake and Output 12/02/16 12/03/16 19:00 07:00 Intake Total 1325.0 ml 985 ml Output Total 350 ml 700 ml Balance 975.0 ml 285 ml Intake Free Water 50 ml 100 ml IV Total 855.0 ml 595 ml Tube Feeding 420 ml 290 ml Output Urine Total 350 ml 700 ml # Bowel Movements 1 Laboratory Tests 12/03/16 06:37: Sodium Level 156H, Potassium Level 4.8, Chloride Level 113H, Carbon Dioxide Level 22, Anion Gap 21H, Blood Urea Nitrogen 73H, Creatinine 2.5H, Estimat Glomerular Filtration Rate , Glucose Level 166H, Calcium Level 7.7L, Total Bilirubin 0.6, Aspartate Amino Transf (AST/SGOT) 50H, Alanine Aminotransferase ( ALT/SGPT) 37, Alkaline Phosphatase 148H, Total Protein 5.5L, Albumin 2.3L, Globulin 3.2, Albumin/Globulin Ratio 0.7L, Random Vancomycin Level 11.4 12/03/16 09:06: White Blood Count 15.8H, Red Blood Count 3.15L, Hemoglobin 9.7L, Hematocrit 31.0L, Mean Corpuscular Volume 98, Mean Corpuscular Hemoglobin 30.6, Mean Corpuscular Hemoglobin Concent 31.2L, Red Cell Distribution Width 14.2, Platelet Count 305, Mean Platelet Volume 8.1, Neutrophils (%) (Auto) 82.3H, Lymphocytes (%) (Auto) 9.6L, Monocytes (%) (Auto) 5.0, Eosinophils (%) (Auto) 2.6, Basophils (%) (Auto) 0.4, Prothrombin Time 30.9H, Prothromb Time International Ratio 3.1H, Activated Partial Thromboplast Time 50H Height (Feet): 5 Height (Inches): 7.00 Weight (Pounds): 221 EENT: PERRL/EOMI Cardiovascular: regularly irregular Respiratory/Chest: lungs clear Abdomen: soft Aliza Faria MD Dec 03, 2016 10:29
[2016-12-03 11:22] VITALS: BP 101/56
--- NOTE | 2016-12-03 11:31 | General Progress Note ---
Progress Note Progress Note Surgery: patient seen and examined at bedside. exam benign and similar to prior. leukocytosis till 15k. lft's and lip/elvira improved. resolving pancreatitis/ duodenitis. MRCP reviewed. Continue current care and management. no acute surgical intervention necessary at this time. Ozzie Flynn Dec 03, 2016 11:31
--- NOTE | 2016-12-03 12:09 | General Progress Note ---
Assessment/Plan Problem List: (1) Gallstone pancreatitis ICD Codes: K85.10 - Biliary acute pancreatitis without necrosis or infection SNOMED: 31061777 Assessment/Plan improving labs MRCP no CBD stone ? passed CBD stone GTF fu INR fu lfts ca 19-9 Subjective ROS Limited/Unobtainable: No Allergies: Coded Allergies: No Known Allergies (Verified , 12/27/08) Subjective no event Objective Last 24 Hour Vital Signs Date Time Temp Pulse Resp B/P Pulse Ox O2 Delivery O2 Flow Rate FiO2 12/03/16 11:22 98.1 67 20 101/56 95 Venturi Mask 15.0 12/03/16 08:07 84 12/03/16 07:59 97.9 82 20 115/69 100 Venturi Mask 15.0 12/03/16 07:27 Venturi Mask 14.0 55 12/03/16 07:26 100 Venturi Mask 14.0 55 12/03/16 07:26 88 20 Venturi Mask 14.0 55 12/03/16 04:00 98.1 86 20 105/65 100 Venturi Mask 12/03/16 04:00 86 12/03/16 00:50 98.2 89 20 96/59 100 Venturi Mask 12/03/16 00:00 86 12/02/16 20:00 93 12/02/16 20:00 98.4 94 18 95/60 95 Room Air 12/02/16 19:30 100 Venturi Mask 14.0 55 12/02/16 19:30 Venturi Mask 14.0 55 12/02/16 19:30 90 20 Venturi Mask 14.0 55 12/02/16 16:00 91 12/02/16 16:00 98.8 91 19 113/67 94 Venturi Mask Intake and Output 12/02/16 12/03/16 19:00 07:00 Intake Total 1325.0 ml 985 ml Output Total 350 ml 700 ml Balance 975.0 ml 285 ml Intake Free Water 50 ml 100 ml IV Total 855.0 ml 595 ml Tube Feeding 420 ml 290 ml Output Urine Total 350 ml 700 ml # Bowel Movements 1 Laboratory Tests 12/03/16 06:37: Sodium Level 156H, Potassium Level 4.8, Chloride Level 113H, Carbon Dioxide Level 22, Anion Gap 21H, Blood Urea Nitrogen 73H, Creatinine 2.5H, Estimat Glomerular Filtration Rate , Glucose Level 166H, Calcium Level 7.7L, Total Bilirubin 0.6, Aspartate Amino Transf (AST/SGOT) 50H, Alanine Aminotransferase ( ALT/SGPT) 37, Alkaline Phosphatase 148H, Total Protein 5.5L, Albumin 2.3L, Globulin 3.2, Albumin/Globulin Ratio 0.7L, Random Vancomycin Level 11.4 12/03/16 09:06: White Blood Count 15.8H, Red Blood Count 3.15L, Hemoglobin 9.7L, Hematocrit 31.0L, Mean Corpuscular Volume 98, Mean Corpuscular Hemoglobin 30.6, Mean Corpuscular Hemoglobin Concent 31.2L, Red Cell Distribution Width 14.2, Platelet Count 305, Mean Platelet Volume 8.1, Neutrophils (%) (Auto) 82.3H, Lymphocytes (%) (Auto) 9.6L, Monocytes (%) (Auto) 5.0, Eosinophils (%) (Auto) 2.6, Basophils (%) (Auto) 0.4, Prothrombin Time 30.9H, Prothromb Time International Ratio 3.1H, Activated Partial Thromboplast Time 50H Height (Feet): 5 Height (Inches): 7.00 Weight (Pounds): 221 General Appearance: no apparent distress EENT: normal ENT inspection Neck: supple Cardiovascular: normal rate Respiratory/Chest: decreased breath sounds Abdomen: normal bowel sounds, non tender, soft Extremities: non-tender FLOYD MARIANO Dec 03, 2016 12:09
--- NOTE | 2016-12-03 12:37 | General Progress Note ---
Assessment/Plan Assessment/Plan ASSESSMENT: 1. Coagulopathy with supertherapeutic - now improved, can consider to restart coumadin as per cards, inr 2-3 goal 2. Anemia 2/2 chronic disease, is without major changes, hgb >10 3. Leukocytosis secondary to underlying infection with pancreatitis and elevated lipase. 4. A-fibrillation was on coumadin before 5. r/o gastrointestinal bleed. 6. Dysphagia. 7. Dementia. 8. Hyperglycemia. 9. Sepsis. RECS: 1. Monitor counts. 2. Transfuse as needed 3. Anemia w/u reviewed 4. Okay to restart coumadin if cleared by other services (inr remains elevated at this time) 5. Appreciate GI recs 6. Antibiotics on prn basis 7. Discussed with staff. 8. Continue PPI. Thank you, Abdifatah Ramirez MD Subjective Constitutional: Denies: chills, diaphoresis, fever, malaise, no symptoms, other , weakness Cardiovascular: Denies: chest pain, edema, irregular heart rate, lightheadedness, no symptoms, other, palpitations, syncope Respiratory: Denies: SOB at rest, SOB with excertion, cough, no symptoms, orthopnea, other, shortness of breath, sputum, stridor, wheezing Gastrointestinal/Abdominal: Denies: abdomen distended, abdominal pain, black stools, blood in stool, constipated, diarrhea, difficulty swallowing, nausea, no symptoms, other, poor appetite, poor fluid intake, rectal bleeding, tarry stools, vomiting Genitourinary: Denies: burning, discharge, flank pain, frequency, hematuria, incontinence, no symptoms, other, pain, urgency Neurologic/Psychiatric: Denies: anxiety, depressed, emotional problems, headache, no symptoms, numbness, other, paresthesia, pre-existing deficit, seizure, tingling, tremors, weakness Endocrine: Denies: excessive sweating, flushing, increased hunger, increased thirst, increased urine, intolerance to cold, intolerance to heat, no symptoms, other, unexplained weight gain, unexplained weight loss Allergies: Coded Allergies: No Known Allergies (Verified , 12/27/08) Subjective stable, tired, no fevers, no chills, on non-rebreather Objective Last 24 Hour Vital Signs Date Time Temp Pulse Resp B/P Pulse Ox O2 Delivery O2 Flow Rate FiO2 12/03/16 11:22 98.1 67 20 101/56 95 Venturi Mask 15.0 12/03/16 08:07 84 12/03/16 07:59 97.9 82 20 115/69 100 Venturi Mask 15.0 12/03/16 07:27 Venturi Mask 14.0 55 12/03/16 07:26 100 Venturi Mask 14.0 55 12/03/16 07:26 88 20 Venturi Mask 14.0 55 12/03/16 04:00 98.1 86 20 105/65 100 Venturi Mask 12/03/16 04:00 86 12/03/16 00:50 98.2 89 20 96/59 100 Venturi Mask 12/03/16 00:00 86 12/02/16 20:00 93 12/02/16 20:00 98.4 94 18 95/60 95 Room Air 12/02/16 19:30 100 Venturi Mask 14.0 55 12/02/16 19:30 Venturi Mask 14.0 55 12/02/16 19:30 90 20 Venturi Mask 14.0 55 12/02/16 16:00 91 12/02/16 16:00 98.8 91 19 113/67 94 Venturi Mask Intake and Output 12/02/16 12/03/16 19:00 07:00 Intake Total 1325.0 ml 985 ml Output Total 350 ml 700 ml Balance 975.0 ml 285 ml Intake Free Water 50 ml 100 ml IV Total 855.0 ml 595 ml Tube Feeding 420 ml 290 ml Output Urine Total 350 ml 700 ml # Bowel Movements 1 Laboratory Tests 12/03/16 06:37: Sodium Level 156H, Potassium Level 4.8, Chloride Level 113H, Carbon Dioxide Level 22, Anion Gap 21H, Blood Urea Nitrogen 73H, Creatinine 2.5H, Estimat Glomerular Filtration Rate , Glucose Level 166H, Calcium Level 7.7L, Total Bilirubin 0.6, Aspartate Amino Transf (AST/SGOT) 50H, Alanine Aminotransferase ( ALT/SGPT) 37, Alkaline Phosphatase 148H, Total Protein 5.5L, Albumin 2.3L, Globulin 3.2, Albumin/Globulin Ratio 0.7L, Random Vancomycin Level 11.4 12/03/16 09:06: White Blood Count 15.8H, Red Blood Count 3.15L, Hemoglobin 9.7L, Hematocrit 31.0L, Mean Corpuscular Volume 98, Mean Corpuscular Hemoglobin 30.6, Mean Corpuscular Hemoglobin Concent 31.2L, Red Cell Distribution Width 14.2, Platelet Count 305, Mean Platelet Volume 8.1, Neutrophils (%) (Auto) 82.3H, Lymphocytes (%) (Auto) 9.6L, Monocytes (%) (Auto) 5.0, Eosinophils (%) (Auto) 2.6, Basophils (%) (Auto) 0.4, Prothrombin Time 30.9H, Prothromb Time International Ratio 3.1H, Activated Partial Thromboplast Time 50H Height (Feet): 5 Height (Inches): 7.00 Weight (Pounds): 221 General Appearance: no apparent distress EENT: TMs normal Neck: supple Cardiovascular: regular rhythm Respiratory/Chest: normal breath sounds Abdomen: no organomegaly Extremities: non-tender Edema: 1+ Leg (L), 1+ Leg (R) Edema: mild edema Neurologic: alert Skin: warm/dry Abdiaftah Ramirez Dec 03, 2016 12:37
--- NOTE | 2016-12-03 12:46 | General Progress Note ---
Assessment/Plan Status: unchanged Status Narrative Cr 2.5 Assessment/Plan Acute renal failure due to sepsis , low BP , GI bleed Sepsis Hyperglycemia Choledocholithiasis Aspiration into lower respiratory tract coagulopathy 2 to anticoagulation use hx of At fib hx of CVA seizure disorder pressure ulcer dysphagia, G tube HTN elevated LFTs, declining Plan: Hydrate- D5 Stop Depakote, high LFTs, check level Avoid Nephrotoxics Monitor renal parameters and H&h Urine studies stop Norvasc and cardura for low bp Per orders Subjective ROS Limited/Unobtainable: Yes Allergies: Coded Allergies: No Known Allergies (Verified , 12/27/08) Objective Last 24 Hour Vital Signs Date Time Temp Pulse Resp B/P Pulse Ox O2 Delivery O2 Flow Rate FiO2 12/03/16 11:22 98.1 67 20 101/56 95 Venturi Mask 15.0 12/03/16 08:07 84 12/03/16 07:59 97.9 82 20 115/69 100 Venturi Mask 15.0 12/03/16 07:27 Venturi Mask 14.0 55 12/03/16 07:26 100 Venturi Mask 14.0 55 12/03/16 07:26 88 20 Venturi Mask 14.0 55 12/03/16 04:00 98.1 86 20 105/65 100 Venturi Mask 12/03/16 04:00 86 12/03/16 00:50 98.2 89 20 96/59 100 Venturi Mask 12/03/16 00:00 86 12/02/16 20:00 93 12/02/16 20:00 98.4 94 18 95/60 95 Room Air 12/02/16 19:30 100 Venturi Mask 14.0 55 12/02/16 19:30 Venturi Mask 14.0 55 12/02/16 19:30 90 20 Venturi Mask 14.0 55 12/02/16 16:00 91 12/02/16 16:00 98.8 91 19 113/67 94 Venturi Mask Intake and Output 12/02/16 12/03/16 19:00 07:00 Intake Total 1325.0 ml 985 ml Output Total 350 ml 700 ml Balance 975.0 ml 285 ml Intake Free Water 50 ml 100 ml IV Total 855.0 ml 595 ml Tube Feeding 420 ml 290 ml Output Urine Total 350 ml 700 ml # Bowel Movements 1 Laboratory Tests 12/03/16 06:37: Sodium Level 156H, Potassium Level 4.8, Chloride Level 113H, Carbon Dioxide Level 22, Anion Gap 21H, Blood Urea Nitrogen 73H, Creatinine 2.5H, Estimat Glomerular Filtration Rate , Glucose Level 166H, Calcium Level 7.7L, Total Bilirubin 0.6, Aspartate Amino Transf (AST/SGOT) 50H, Alanine Aminotransferase ( ALT/SGPT) 37, Alkaline Phosphatase 148H, Total Protein 5.5L, Albumin 2.3L, Globulin 3.2, Albumin/Globulin Ratio 0.7L, Random Vancomycin Level 11.4 12/03/16 09:06: White Blood Count 15.8H, Red Blood Count 3.15L, Hemoglobin 9.7L, Hematocrit 31.0L, Mean Corpuscular Volume 98, Mean Corpuscular Hemoglobin 30.6, Mean Corpuscular Hemoglobin Concent 31.2L, Red Cell Distribution Width 14.2, Platelet Count 305, Mean Platelet Volume 8.1, Neutrophils (%) (Auto) 82.3H, Lymphocytes (%) (Auto) 9.6L, Monocytes (%) (Auto) 5.0, Eosinophils (%) (Auto) 2.6, Basophils (%) (Auto) 0.4, Prothrombin Time 30.9H, Prothromb Time International Ratio 3.1H, Activated Partial Thromboplast Time 50H Height (Feet): 5 Height (Inches): 7.00 Weight (Pounds): 221 General Appearance: no apparent distress, lethargic Cardiovascular: normal rate Respiratory/Chest: decreased breath sounds Abdomen: distended Objective other physical exam not changed ALONDRA FULTON Dec 03, 2016 12:46
--- NOTE | 2016-12-03 13:29 | Pulmonology Progress Note ---
Assessment/Plan Problems: (1) Coffee ground vomiting (2) Coagulopathy (3) Sepsis (4) Acute pancreatitis (5) Limited mobility in bed (6) Feeding by G-tube (7) Choledocholithiasis (8) Dementia Assessment/Plan wbc still high amylase decreasing MRI of abdomen noted continue abx for bacteremia. Heart rate controlled. may go to med/surg. Subjective ROS Limited/Unobtainable: No Interval Events: no new complains Constitutional: Reports: no symptoms Allergies: Coded Allergies: No Known Allergies (Verified , 12/27/08) Objective Last 24 Hour Vital Signs Date Time Temp Pulse Resp B/P Pulse Ox O2 Delivery O2 Flow Rate FiO2 12/03/16 11:59 85 12/03/16 11:22 98.1 67 20 101/56 95 Venturi Mask 15.0 12/03/16 08:07 84 12/03/16 07:59 97.9 82 20 115/69 100 Venturi Mask 15.0 12/03/16 07:27 Venturi Mask 14.0 55 12/03/16 07:26 100 Venturi Mask 14.0 55 12/03/16 07:26 88 20 Venturi Mask 14.0 55 12/03/16 04:00 98.1 86 20 105/65 100 Venturi Mask 12/03/16 04:00 86 12/03/16 00:50 98.2 89 20 96/59 100 Venturi Mask 12/03/16 00:00 86 12/02/16 20:00 93 12/02/16 20:00 98.4 94 18 95/60 95 Room Air 12/02/16 19:30 100 Venturi Mask 14.0 55 12/02/16 19:30 Venturi Mask 14.0 55 12/02/16 19:30 90 20 Venturi Mask 14.0 55 12/02/16 16:00 91 12/02/16 16:00 98.8 91 19 113/67 94 Venturi Mask Intake and Output 12/02/16 12/03/16 19:00 07:00 Intake Total 1325.0 ml 985 ml Output Total 350 ml 700 ml Balance 975.0 ml 285 ml Intake Free Water 50 ml 100 ml IV Total 855.0 ml 595 ml Tube Feeding 420 ml 290 ml Output Urine Total 350 ml 700 ml # Bowel Movements 1 General Appearance: WD/WN HEENT: normocephalic Respiratory/Chest: chest wall non-tender, normal breath sounds Cardiovascular: normal peripheral pulses, normal rate Abdomen: normal bowel sounds, soft, non tender Genitourinary: normal external genitalia Extremities: no cyanosis Skin: no rash Neurologic/Psychiatric: speech therapist II-XII grossly normal, normal mood/affect Microbiology Date/Time Source Procedure Growth Status 12/01/16 09:30 Blood Blood Culture - Preliminary NO GROWTH AFTER 24 HOURS Resulted 11/30/16 22:30 Blood Blood Culture - Preliminary NO GROWTH AFTER 48 HOURS Resulted Laboratory Tests 12/03/16 06:37: Sodium Level 156H, Potassium Level 4.8, Chloride Level 113H, Carbon Dioxide Level 22, Anion Gap 21H, Blood Urea Nitrogen 73H, Creatinine 2.5H, Estimat Glomerular Filtration Rate , Glucose Level 166H, Calcium Level 7.7L, Total Bilirubin 0.6, Aspartate Amino Transf (AST/SGOT) 50H, Alanine Aminotransferase ( ALT/SGPT) 37, Alkaline Phosphatase 148H, Total Protein 5.5L, Albumin 2.3L, Globulin 3.2, Albumin/Globulin Ratio 0.7L, Random Vancomycin Level 11.4 12/03/16 09:06: White Blood Count 15.8H, Red Blood Count 3.15L, Hemoglobin 9.7L, Hematocrit 31.0L, Mean Corpuscular Volume 98, Mean Corpuscular Hemoglobin 30.6, Mean Corpuscular Hemoglobin Concent 31.2L, Red Cell Distribution Width 14.2, Platelet Count 305, Mean Platelet Volume 8.1, Neutrophils (%) (Auto) 82.3H, Lymphocytes (%) (Auto) 9.6L, Monocytes (%) (Auto) 5.0, Eosinophils (%) (Auto) 2.6, Basophils (%) (Auto) 0.4, Prothrombin Time 30.9H, Prothromb Time International Ratio 3.1H, Activated Partial Thromboplast Time 50H Current Medications Medications (Trade) Dose Ordered Sig/Jamaal Route PRN Reason Start Time Stop Time Status Last Admin Dose Admin Acetaminophen (Tylenol) 650 mg Q4H PRN ORAL Fever 11/28/16 19:00 12/28/16 18:59 12/01/16 05:46 Albuterol/ Ipratropium (DuoNeb 0.5-3(2.5)mg/3ml) 3 ml Q4H PRN HHN Shortness of Breath 11/28/16 15:15 12/03/16 15:14 Clonidine HCl (Catapres) 0.1 mg Q8H PRN GT sbp> 160 11/28/16 15:15 12/28/16 15:14 Dextrose (D5W 1000ml) 1,000 ml @ 85 mls/hr [id number] IV 11/29/16 15:00 12/29/16 14:59 12/03/16 13:16 Dextrose (Dextrose 50%) STAT PRN IV Hypoglycemia 11/28/16 19:00 12/28/16 18:59 Insulin Aspart (NovoLOG) EVERY 6 HOURS SUBQ 11/28/16 19:00 12/28/16 18:59 12/03/16 12:00 Insulin Detemir (Levemir) 8 units Q12HR SUBQ 11/28/16 21:00 12/28/16 20:59 12/03/16 08:58 Lorazepam (Ativan 2mg/ml 1ml) 2 mg Q2H PRN IV agitation 11/28/16 15:15 12/05/16 15:14 11/29/16 06:29 Morphine Sulfate (Morphine Sulfate) 4 mg Q4H PRN IVP Severe Pain (Pain Scale 7-10) 11/28/16 15:15 12/05/16 15:14 11/30/16 04:32 Nitroglycerin (Ntg) 0.4 mg Q5M PRN SL Prn Chest Pain 11/28/16 15:00 12/28/16 14:59 Ondansetron HCl (Zofran) 4 mg Q6H PRN IVP Nausea & Vomiting 11/28/16 17:15 12/28/16 17:14 Pantoprazole (Protonix) 40 mg DAILY IVP 12/01/16 09:00 12/31/16 08:59 12/03/16 08:57 Piperacillin Sod/ Tazobactam Sod/ Sodium Chloride (Zosyn/Sodium Chloride) 110 ml @ 27.5 mls/hr Q12HR@0000,1200 IVPB 11/29/16 00:00 12/06/16 00:00 12/03/16 12:46 Polyethylene Glycol (Miralax) 17 gm DAILYPRN PRN ORAL Constipation 11/28/16 19:00 12/28/16 18:59 Vancomycin HCl 1 ea 1 ea DAILY PRN MISC Per rx protocol 11/29/16 09:00 12/29/16 08:59 SONIA ALBERTS Dec 03, 2016 13:29
--- NOTE | 2016-12-03 14:21 | Wound Care Consultation ---
Wound Assessment Wound Assessment #1: Wound Number: #1 Wound Present on Admission: Yes New Wound: No Status Change of Wound: No Wound Location Body Site Modif: mid Wound Location Body Site: sacral - extended to left buttocks Wound Type: scar - full thickness scar tissue. Cachorro Test: Does not Cachorro Traumatic Injury Wounds: Skin Tear Wound Thickness: Full Thickness Wound Length: 5.0 Wound Width: 3.0 Wound Depth: utd Percent of Wound [place]/Red: 100 Wound Drainage Amount: None Wound Drainage Odor: None/Absent Tissue Surrounding Wound: Intact Wound General Appearance: Asymptomatic Wound Assessment #2: Wound Number: #2 Wound Present on Admission: Yes New Wound: No Status Change of Wound: No Wound Location Body Site Modif: right, lower, lateral Wound Location Body Site: leg Wound Type: scar - full thickness scar tissue. Cachorro Test: Does not C[place] Wound Thickness: Full Thickness Wound Length: 8.0 Wound Width: 2.0 Wound Depth: utd Percent of Wound [place]/Red: 100 Wound Drainage Amount: None Wound Drainage Odor: None/Absent Tissue Surrounding Wound: Intact Wound General Appearance: Asymptomatic Wound Assessment #3: Wound Number: #3 Wound Present on Admission: No New Wound: Yes Status Change of Wound: No Wound Location Body Site Modif: right Wound Location Body Site: ear - top of ear Wound Type: pressure ulcer Cachorro Test: Does not [place] Pressure Ulcer Stage: I Wound Length: 1.0 Wound Width: 1.0 Percent of Wound [place]/Red: 100 Wound Drainage Amount: None Wound Drainage Odor: None/Absent Tissue Surrounding Wound: Intact Wound General Appearance: Reddened Wound Assessment #4: Wound Number: #4 Wound Present on Admission: No New Wound: Yes Status Change of Wound: No Wound Location Body Site Modif: left Wound Location Body Site: ear - top of ear Wound Type: pressure ulcer Cachorro Test: Does not [place] Pressure Ulcer Stage: II Wound Thickness: Partial Thickness Wound Length: 1.0 Wound Width: 1.0 Wound Depth: <0.1 Percent of Wound [place]/Red: 100 Wound Drainage Description: Serosanguineous Wound Drainage Amount: Scant Wound Drainage Odor: None/Absent Tissue Surrounding Wound: Erythemic Wound General Appearance: Reddened Wound Assessment #5: Wound Number: #5 Wound Present on Admission: No New Wound: Yes Status Change of Wound: No Wound Location Body Site Modif: mid Wound Location Body Site: other - forehead Wound Type: other - abrasion. Cachorro Test: Does not C[place] Wound Thickness: Partial Thickness Wound Length: 2.0 Wound Width: 1.0 Wound Drainage Amount: None Wound Drainage Odor: None/Absent Tissue Surrounding Wound: Erythemic Wound General Appearance: Reddened Wound Comment #1 Sacral full thickness scar tissue extends to left buttock. #2 Right lower lateral leg full thickness scar tissue. #3 Right top of ear redness.- cleanse with normal saline, pat dry, apply TRIAD , apply 4x4 gauze, secure with tape DAILY and PRN if soiled/dislodged. #4 Left top of ear pressure ulcer stage II.- cleanse with normal saline, pat dry , apply TRIAD, apply 4x4 gauze, secure with tape DAILY and PRN if soiled/ dislodged. #5 Mid lower forehead abrasion. Recommendation. -Local wound care as ordered. -APPLY 4X4 GAUZE TO O2 MASK AROUND EARS TO PROVIDE CUSHION. -Keep clean and dry. -Optimize nutrition. -Heel protectors. -Offload heels, feet, sacral. -Turn and reposition. -Assess and notify MD for any changes of condition to skin. JO ABBOTT Dec 03, 2016 14:21
--- NOTE | 2016-12-03 15:45 | Infectious Diseases Prog Note ---
Assessment/Plan Problems: (1) HCAP (healthcare-associated pneumonia) Assessment & Plan: on vancomycin and zosyn, monitor CXR, sputum culture showed no growth , pulmonary is following (2) UTI (urinary tract infection) Assessment & Plan: on zosyn, no urine culture was done (3) Sepsis Assessment & Plan: with coag negative staph which is most likely contaminant , and Citrobacter diversus which is real , source most likely GI or tract . already on zosyn , may need ERCP to evaluate the CBD . (4) FABIOLA (acute kidney injury) Assessment & Plan: due to sepsis, continue hydration, avoid nephrotoxic meds (5) Hyperglycemia Assessment & Plan: due to pancreatitis , continue insulin , and titrate to keep glucose level between 80-120 (6) Acute pancreatitis Assessment & Plan: complicated with intraabdominal phlegmon , will continue wide spectrum antibiotics therapy, may need ERCP for source control to relief CBD if really obstructed. (7) Common bile duct (CBD) obstruction Assessment & Plan: may need ERCP to remove the obstruction once hemodynamically stable. GI is following . Subjective ROS Limited/Unobtainable: Yes Allergies: Coded Allergies: No Known Allergies (Verified , 12/27/08) Subjective he is on Ventimask with high flow oxygen , doesn't follow commands . nonverbal, not in distress, afebrile. Objective Vital Signs Last 24 Hour Vital Signs Date Time Temp Pulse Resp B/P Pulse Ox O2 Delivery O2 Flow Rate FiO2 12/03/16 11:59 85 12/03/16 11:22 98.1 67 20 101/56 95 Venturi Mask 15.0 12/03/16 08:07 84 12/03/16 07:59 97.9 82 20 115/69 100 Venturi Mask 15.0 12/03/16 07:27 Venturi Mask 14.0 55 12/03/16 07:26 100 Venturi Mask 14.0 55 12/03/16 07:26 88 20 Venturi Mask 14.0 55 12/03/16 04:00 98.1 86 20 105/65 100 Venturi Mask 12/03/16 04:00 86 12/03/16 00:50 98.2 89 20 96/59 100 Venturi Mask 12/03/16 00:00 86 12/02/16 20:00 93 12/02/16 20:00 98.4 94 18 95/60 95 Room Air 12/02/16 19:30 100 Venturi Mask 14.0 55 12/02/16 19:30 Venturi Mask 14.0 55 12/02/16 19:30 90 20 Venturi Mask 14.0 55 12/02/16 16:00 91 12/02/16 16:00 98.8 91 19 113/67 94 Venturi Mask Height (Feet): 5 Height (Inches): 7.00 Weight (Pounds): 221 General Appearance: WD/WN, no acute distress HEENT: normocephalic, atraumatic, anicteric, mucous membranes moist Respiratory/Chest: chest wall non-tender, lungs clear, normal breath sounds, no accessory muscle use Cardiovascular: normal peripheral pulses, normal rate, regular rhythm, no gallop/murmur, no JVD Abdomen: normal bowel sounds, soft, non tender, no organomegaly, non distended , no mass Extremities: no cyanosis, no clubbing Skin: no rash, no lesions, ulcers Microbiology Date/Time Source Procedure Growth Status 12/01/16 09:30 Blood Blood Culture - Preliminary NO GROWTH AFTER 24 HOURS Resulted 11/30/16 22:30 Blood Blood Culture - Preliminary NO GROWTH AFTER 48 HOURS Resulted Laboratory Tests Test 12/03/16 06:37 12/03/16 09:06 Sodium Level 156 mEQ/L (135-145) H Potassium Level 4.8 mEQ/L (3.4-4.9) Chloride Level 113 mEQ/L (98-107) H Carbon Dioxide Level 22 mEQ/L (20-30) Anion Gap 21 (5-15) H Blood Urea Nitrogen 73 mg/dL (7-23) H Creatinine 2.5 mg/dL (0.7-1.2) H Estimat Glomerular Filtration Rate mL/min (>60) Glucose Level 166 mg/dL (74-106) H Calcium Level 7.7 mg/dL (8.6-10.2) L Total Bilirubin 0.6 mg/dL (0.0-1.2) Aspartate Amino Transf (AST/SGOT) 50 U/L (5-40) H Alanine Aminotransferase (ALT/SGPT) 37 U/L (3-41) Alkaline Phosphatase 148 U/L (40-129) H Total Protein 5.5 g/dL (6.6-8.7) L Albumin 2.3 g/dL (3.5-5.2) L Globulin 3.2 g/dL Albumin/Globulin Ratio 0.7 (1.0-2.7) L Random Vancomycin Level 11.4 ug/mL White Blood Count 15.8 K/UL (4.8-10.8) H Red Blood Count 3.15 M/UL (4.70-6.10) L Hemoglobin 9.7 G/DL (14.2-18.0) L Hematocrit 31.0 % (42.0-52.0) L Mean Corpuscular Volume 98 FL (80-99) Mean Corpuscular Hemoglobin 30.6 PG (27.0-31.0) Mean Corpuscular Hemoglobin Concent 31.2 G/DL (32.0-36.0) L Red Cell Distribution Width 14.2 % (11.6-14.8) Platelet Count 305 K/UL (150-450) Mean Platelet Volume 8.1 FL (6.5-10.1) Neutrophils (%) (Auto) 82.3 % (45.0-75.0) H Lymphocytes (%) (Auto) 9.6 % (20.0-45.0) L Monocytes (%) (Auto) 5.0 % (1.0-10.0) Eosinophils (%) (Auto) 2.6 % (0.0-3.0) Basophils (%) (Auto) 0.4 % (0.0-2.0) Prothrombin Time 30.9 SEC (9.30-11.50) H Prothromb Time International Ratio 3.1 (0.9-1.1) H Activated Partial Thromboplast Time 50 SEC (23-33) H Current Medications Medications (Trade) Dose Ordered Sig/Jamaal Route PRN Reason Start Time Stop Time Status Last Admin Dose Admin Acetaminophen (Tylenol) 650 mg Q4H PRN ORAL Fever 11/28/16 19:00 12/28/16 18:59 12/01/16 05:46 Clonidine HCl (Catapres) 0.1 mg Q8H PRN GT sbp> 160 11/28/16 15:15 12/28/16 15:14 Dextrose (D5W 1000ml) 1,000 ml @ 85 mls/hr [id number] IV 11/29/16 15:00 4/15/17 14:59 12/03/16 13:16 Dextrose (Dextrose 50%) STAT PRN IV Hypoglycemia 11/28/16 19:00 12/28/16 18:59 Insulin Aspart (NovoLOG) EVERY 6 HOURS SUBQ 11/28/16 19:00 12/28/16 18:59 12/03/16 12:00 Insulin Detemir (Levemir) 8 units Q12HR SUBQ 11/28/16 21:00 12/28/16 20:59 12/03/16 08:58 Lorazepam (Ativan 2mg/ml 1ml) 2 mg Q2H PRN IV agitation 11/28/16 15:15 12/05/16 15:14 11/29/16 06:29 Morphine Sulfate (Morphine Sulfate) 4 mg Q4H PRN IVP Severe Pain (Pain Scale 7-10) 11/28/16 15:15 12/05/16 15:14 11/30/16 04:32 Nitroglycerin (Ntg) 0.4 mg Q5M PRN SL Prn Chest Pain 11/28/16 15:00 12/28/16 14:59 Ondansetron HCl (Zofran) 4 mg Q6H PRN IVP Nausea & Vomiting 11/28/16 17:15 12/28/16 17:14 Pantoprazole (Protonix) 40 mg DAILY IVP 12/01/16 09:00 12/31/16 08:59 12/03/16 08:57 Piperacillin Sod/ Tazobactam Sod/ Sodium Chloride (Zosyn/Sodium Chloride) 110 ml @ 27.5 mls/hr Q12HR@0000,1200 IVPB 11/29/16 00:00 12/06/16 00:00 12/03/16 12:46 Polyethylene Glycol (Miralax) 17 gm DAILYPRN PRN ORAL Constipation 11/28/16 19:00 12/28/16 18:59 Vancomycin HCl 1 ea 1 ea DAILY PRN MISC Per rx protocol 11/29/16 09:00 12/29/16 08:59 Ariana Acevedo M.D. Dec 03, 2016 15:45
--- NOTE | 2016-12-03 15:57 | Cardiac Electrophysiology PN ---
Assessment/Plan Assessment/Plan 1. Sinus tachycardia due to sepsis and dehydration. HR better. 2. Paroxysmal atrial fibrillation. Coumadin is on hold until the INR comes to therapeutic range. Off of any AV teodora jacinto. Echo EF Normal 3. Sepsis. On broad-spectrum antibiotic 4. Status post percutaneous endoscopic gastrostomy placement, had abdominal MRI that showed No evidence of choledocholithiasis. Moderate biliary ductal dilatation is present. Findings may be on the basis of focal pancreatitis involving the head of the pancreas and/or duodenitis as there is marked thickening of the wall the second and third portions of the duodenum. Please correlate clinically. Unremarkable gallbladder.Benign right adrenal adenoma 5. Hypernatremia and azotemia secondary to dehydration.On iv fluids 6. Coffee-ground emesis. F/U per Dr. Wilson. 7. Pancreatitis. CHAPINCITO RN Subjective Subjective No significant change. Nonverbal.No arrhythmias in SR. Objective Last 24 Hour Vital Signs Date Time Temp Pulse Resp B/P Pulse Ox O2 Delivery O2 Flow Rate FiO2 12/03/16 11:59 85 12/03/16 11:22 98.1 67 20 101/56 95 Venturi Mask 15.0 12/03/16 08:07 84 12/03/16 07:59 97.9 82 20 115/69 100 Venturi Mask 15.0 12/03/16 07:27 Venturi Mask 14.0 55 12/03/16 07:26 100 Venturi Mask 14.0 55 12/03/16 07:26 88 20 Venturi Mask 14.0 55 12/03/16 04:00 98.1 86 20 105/65 100 Venturi Mask 12/03/16 04:00 86 12/03/16 00:50 98.2 89 20 96/59 100 Venturi Mask 12/03/16 00:00 86 12/02/16 20:00 93 12/02/16 20:00 98.4 94 18 95/60 95 Room Air 12/02/16 19:30 100 Venturi Mask 14.0 55 12/02/16 19:30 Venturi Mask 14.0 55 12/02/16 19:30 90 20 Venturi Mask 14.0 55 12/02/16 16:00 91 12/02/16 16:00 98.8 91 19 113/67 94 Venturi Mask Intake and Output 12/02/16 12/03/16 19:00 07:00 Intake Total 1325.0 ml 985 ml Output Total 350 ml 700 ml Balance 975.0 ml 285 ml Intake Free Water 50 ml 100 ml IV Total 855.0 ml 595 ml Tube Feeding 420 ml 290 ml Output Urine Total 350 ml 700 ml # Bowel Movements 1 Laboratory Tests Test 12/03/16 06:37 12/03/16 09:06 Sodium Level 156 mEQ/L (135-145) H Potassium Level 4.8 mEQ/L (3.4-4.9) Chloride Level 113 mEQ/L (98-107) H Carbon Dioxide Level 22 mEQ/L (20-30) Anion Gap 21 (5-15) H Blood Urea Nitrogen 73 mg/dL (7-23) H Creatinine 2.5 mg/dL (0.7-1.2) H Estimat Glomerular Filtration Rate mL/min (>60) Glucose Level 166 mg/dL (74-106) H Calcium Level 7.7 mg/dL (8.6-10.2) L Total Bilirubin 0.6 mg/dL (0.0-1.2) Aspartate Amino Transf (AST/SGOT) 50 U/L (5-40) H Alanine Aminotransferase (ALT/SGPT) 37 U/L (3-41) Alkaline Phosphatase 148 U/L (40-129) H Total Protein 5.5 g/dL (6.6-8.7) L Albumin 2.3 g/dL (3.5-5.2) L Globulin 3.2 g/dL Albumin/Globulin Ratio 0.7 (1.0-2.7) L Random Vancomycin Level 11.4 ug/mL White Blood Count 15.8 K/UL (4.8-10.8) H Red Blood Count 3.15 M/UL (4.70-6.10) L Hemoglobin 9.7 G/DL (14.2-18.0) L Hematocrit 31.0 % (42.0-52.0) L Mean Corpuscular Volume 98 FL (80-99) Mean Corpuscular Hemoglobin 30.6 PG (27.0-31.0) Mean Corpuscular Hemoglobin Concent 31.2 G/DL (32.0-36.0) L Red Cell Distribution Width 14.2 % (11.6-14.8) Platelet Count 305 K/UL (150-450) Mean Platelet Volume 8.1 FL (6.5-10.1) Neutrophils (%) (Auto) 82.3 % (45.0-75.0) H Lymphocytes (%) (Auto) 9.6 % (20.0-45.0) L Monocytes (%) (Auto) 5.0 % (1.0-10.0) Eosinophils (%) (Auto) 2.6 % (0.0-3.0) Basophils (%) (Auto) 0.4 % (0.0-2.0) Prothrombin Time 30.9 SEC (9.30-11.50) H Prothromb Time International Ratio 3.1 (0.9-1.1) H Activated Partial Thromboplast Time 50 SEC (23-33) H Microbiology Date/Time Source Procedure Growth Status 12/01/16 09:30 Blood Blood Culture - Preliminary NO GROWTH AFTER 24 HOURS Resulted 11/30/16 22:30 Blood Blood Culture - Preliminary NO GROWTH AFTER 48 HOURS Resulted Objective NECK: No JVD. LUNGS: Coarse rhonchi. CARDIOVASCULAR: Tachycardic S1 and S2 with no murmur. ABDOMEN: Soft. G-tube. EXTREMITIES: 1+ pitting edema. BRYON AC Dec 03, 2016 15:57
[2016-12-03 16:00] VITALS: BP 105/60
[2016-12-03] MEDS ORDERED: Nitroglycerin Subl 0.4mg tab (Bottle Of 25) SL PRN (18:00)
[2016-12-03] MEDS ORDERED: Miralax 17gm pkt ORAL PRN (18:00)
[2016-12-03] MEDS ORDERED: LORazepam Inj 2mg/ml 1ml IV PRN (18:00)
[2016-12-03] MEDS ORDERED: Tubing IV Secondary IV ONE (18:39)
[2016-12-03] MEDS ORDERED: NS 275ml ONE (18:39)
[2016-12-03 20:00] VITALS: BP 140/72
[2016-12-04] VITALS: BP 98/61
[2016-12-04] MEDS: Piperacillin/Tazobactam 3.375 GM in NS 110 ML IVPB SCH ×3 (00:23→21:10)
[2016-12-04 04:00] VITALS: BP 103/61
[2016-12-04] MEDS: NovoLOG Insulin Flexpen SUBQ SCH ×5 (05:50→23:59)
--- NOTE | 2016-12-04 07:14 | General Progress Note ---
Assessment/Plan Problem List: (1) Hyperglycemia ICD Codes: R73.9 - Hyperglycemia, unspecified SNOMED: 79306650 (2) FABIOLA (acute kidney injury) ICD Codes: N17.9 - Acute kidney failure, unspecified SNOMED: 28274650 (3) Coagulopathy ICD Codes: D68.9 - Coagulopathy SNOMED: 32988486 (4) Acute pancreatitis ICD Codes: K85.90 - Acute pancreatitis without necrosis or infection, unspecified SNOMED: 954115834 Qualifiers: Qualified Codes: K85.10 - Biliary acute pancreatitis without necrosis or infection Assessment/Plan fair glycemic control continue Levemir 8 units bid continue Novolog sliding scale as is Subjective ROS Limited/Unobtainable: Yes Allergies: Coded Allergies: No Known Allergies (Verified , 12/27/08) Subjective events noted - on O2 mask Objective Last 24 Hour Vital Signs Date Time Temp Pulse Resp B/P Pulse Ox O2 Delivery O2 Flow Rate FiO2 12/04/16 04:00 97.9 82 22 103/61 94 Simple Mask 10.0 12/04/16 00:00 97.7 82 22 98/61 Simple Mask 10.0 12/03/16 20:42 Venturi Mask 14.0 55 12/03/16 20:41 96 Venturi Mask 14.0 55 12/03/16 20:41 82 18 Venturi Mask 14.0 55 12/03/16 20:00 97.9 80 22 140/72 96 Venturi Mask 15.0 12/03/16 16:00 98.1 69 18 105/60 95 Venturi Mask 15.0 12/03/16 11:59 85 12/03/16 11:22 98.1 67 20 101/56 95 Venturi Mask 15.0 12/03/16 08:07 84 12/03/16 07:59 97.9 82 20 115/69 100 Venturi Mask 15.0 12/03/16 07:27 Venturi Mask 14.0 55 12/03/16 07:26 100 Venturi Mask 14.0 55 12/03/16 07:26 88 20 Venturi Mask 14.0 55 Intake and Output 12/03/16 12/04/16 19:00 07:00 Intake Total 27.5 ml 250 ml Output Total 250 ml 400 ml Balance -222.5 ml -150 ml Intake Free Water 100 ml IV Total 27.5 ml Tube Feeding 150 ml Output Urine Total 250 ml 400 ml # Bowel Movements 1 1 Laboratory Tests 12/03/16 09:06: White Blood Count 15.8H, Red Blood Count 3.15L, Hemoglobin 9.7L, Hematocrit 31.0L, Mean Corpuscular Volume 98, Mean Corpuscular Hemoglobin 30.6, Mean Corpuscular Hemoglobin Concent 31.2L, Red Cell Distribution Width 14.2, Platelet Count 305, Mean Platelet Volume 8.1, Neutrophils (%) (Auto) 82.3H, Lymphocytes (%) (Auto) 9.6L, Monocytes (%) (Auto) 5.0, Eosinophils (%) (Auto) 2.6, Basophils (%) (Auto) 0.4, Prothrombin Time 30.9H, Prothromb Time International Ratio 3.1H, Activated Partial Thromboplast Time 50H Height (Feet): 5 Height (Inches): 7.00 Weight (Pounds): 221 General Appearance: lethargic EENT: pale conjunctivae Neck: normal alignment Cardiovascular: regular rhythm Respiratory/Chest: decreased breath sounds Abdomen: normal bowel sounds Edema: 1+ Arm (L), 1+ Arm (R), 1+ Leg (L), 1+ Leg (R), 1+ Pedal (L), 1+ Pedal ( R), 1+ Generalized Objective Current Medications Medications (Trade) Dose Ordered Sig/Jamaal Route PRN Reason Start Time Stop Time Status Last Admin Dose Admin Acetaminophen (Tylenol) 650 mg Q4H PRN ORAL Fever>100.5 12/03/16 18:00 01/02/17 17:59 Clonidine HCl (Catapres) 0.1 mg Q8H PRN GT sbp> 160 12/03/16 18:00 01/02/17 17:59 Dextrose 1,000 ml @ 85 mls/hr [id number] IV 12/03/16 18:30 01/02/17 18:29 12/04/16 05:48 Dextrose (Dextrose 50%) STAT PRN IV Hypoglycemia 12/03/16 18:00 01/02/17 17:59 Insulin Aspart (NovoLOG) EVERY 6 HOURS SUBQ 12/04/16 00:00 01/03/17 00:00 12/04/16 05:50 Insulin Detemir (Levemir) 8 units Q12HR SUBQ 12/03/16 21:00 01/02/17 20:59 12/03/16 21:48 Lorazepam (Ativan 2mg/ml 1ml) 2 mg Q2H PRN IV agitation 12/03/16 18:00 12/10/16 17:59 Morphine Sulfate (Morphine Sulfate) 4 mg Q4H PRN IVP Severe Pain (Pain Scale 7-10) 12/03/16 18:00 12/10/16 17:59 Nitroglycerin (Ntg) 0.4 mg Q5M PRN SL Prn Chest Pain 12/03/16 18:00 01/02/17 17:59 Ondansetron HCl (Zofran) 4 mg Q6H PRN IVP Nausea & Vomiting 12/03/16 18:00 01/02/17 17:59 Pantoprazole (Protonix) 40 mg DAILY IVP 12/04/16 09:00 01/03/17 08:59 Piperacillin Sod/ Tazobactam Sod/ Sodium Chloride (Zosyn/Sodium Chloride) 110 ml @ 27.5 mls/hr Q12HR@0000,1200 IVPB 12/04/16 00:00 12/06/16 00:00 12/04/16 00:23 Polyethylene Glycol (Miralax) 17 gm DAILYPRN PRN ORAL Constipation 12/03/16 18:00 01/02/17 17:59 Vancomycin HCl (Vanco rx to dose) 1 ea DAILY PRN MISC Per rx protocol 12/03/16 18:00 01/02/17 17:59 Item Value Date Time Bedside Blood Glucose 171 mg/dl H 12/04/16 0550 Bedside Blood Glucose 105 mg/dl 12/04/16 0000 Bedside Blood Glucose 98 mg/dl 12/03/16 2148 Bedside Blood Glucose 174 mg/dl H 12/03/16 1719 Bedside Blood Glucose 222 mg/dl H 12/03/16 1200 Bedside Blood Glucose 189 mg/dl H 12/03/16 0858 SUZIE FELDER 21, 2017 07:14
[2016-12-04 08:25] VITALS: BP 112/58
[2016-12-04 08:36] LABS: MEAN CORPUSCULAR HEMOGLOBIN 30.2 PG (27.0-31.0); MEAN CORPUSCULAR HGB CONC 30.6 G/DL (32.0-36.0); MEAN CORPUSCULAR VOLUME 99 FL (80-99); MEAN PLATELET VOLUME 7.9 FL (6.5-10.1); PLATELET COUNT 363 K/UL (150-450); RED BLOOD COUNT 3.38 M/UL (4.70-6.10); RED CELL DISTRIBUTION WIDTH 14.4 % (11.6-14.8); WHITE BLOOD COUNT 16.7 K/UL (4.8-10.8)
[2016-12-04 08:52] LABS: ALANINE AMINOTRANSFERASE 38 U/L (3-41); ALBUMIN/GLOBULIN RATIO 0.5 (1.0-2.7); ANION GAP 12 (5-15); ASPARTATE AMINO TRANSFERASE 43 U/L (5-40); CALCIUM 8.5 mg/dL (8.6-10.2); CARBON DIOXIDE 28 mEQ/L (20-30); CHLORIDE 114 mEQ/L (98-107); CREATININE 2.1 mg/dL (0.7-1.2); POTASSIUM 3.6 mEQ/L (3.4-4.9); SODIUM 154 mEQ/L (135-145); TOTAL PROTEIN 6.4 g/dL (6.6-8.7)
[2016-12-04 08:53] LABS: HEMOLYSIS 10; IRON 32 ug/dL (59-158); TOTAL IRON BINDING CAPACITY 101 ug/dL (250-400)
[2016-12-04] MEDS: Levemir Flexpen SUBQ SCH ×2 (10:19→21:12)
[2016-12-04] MEDS: Pantoprazole Inj IVP SCH (10:20)
[2016-12-04 10:33] LABS: BAND NEUTROPHILS % (MANUAL) 2 % (0-8); BASOPHILS % (MANUAL) 0 % (0-2); EOSINOPHILS % (MANUAL) 0 % (0-3); LYMPHOCYTES % (MANUAL) 9 % (20-45); NEUTROPHILS % (MANUAL) 87 % (45-75); PLATELET ESTIMATE ADEQUATE; PLATELET MORPHOLOGY NORMAL; TOTAL CELLS COUNTED 100
[2016-12-04 10:35] LABS: HYPOCHROMASIA 1+
--- NOTE | 2016-12-04 11:10 | General Progress Note ---
Progress Note Progress Note T-max 99.1. Pt is non communicative, has mild SOB. Abdomen remains distended but soft. MRCP showed no common duct stones, unremarkable gallbladder, but dilatation of bile ducts. His Ca 19-9 is elevated. He is not a candidate for a laparotomy. We need GI follow up to see if an endoscopic ultrasound is indicated. Judah Madison MD Dec 04, 2016 11:10
--- NOTE | 2016-12-04 11:40 | General Progress Note ---
Assessment/Plan Problem List: (1) Hyperglycemia ICD Codes: R73.9 - Hyperglycemia, unspecified SNOMED: 44485609 (2) FABIOLA (acute kidney injury) ICD Codes: N17.9 - Acute kidney failure, unspecified SNOMED: 19785393 (3) Choledocholithiasis ICD Codes: K80.50 - Calculus of bile duct without cholangitis or cholecystitis without obstruction SNOMED: 131825071 (4) Pressure ulcer ICD Codes: L89.90 - Pressure ulcer SNOMED: 898506164 (5) Fever ICD Codes: R50.9 - Fever SNOMED: 308249003 (6) Anemia ICD Codes: D64.9 - Anemia SNOMED: 257111558 (7) Cellulitis ICD Codes: L03.90 - Cellulitis SNOMED: 347420262 (8) Seizure disorder ICD Codes: G40.909 - Seizure disorder SNOMED: 262055691 (9) Sepsis ICD Codes: A41.9 - Sepsis, unspecified organism SNOMED: 97500314 Qualifiers: Qualified Codes: A41.9 - Sepsis, unspecified organism (10) Venous stasis ulcers ICD Codes: I83.009 - Venous stasis ulcers SNOMED: 658033392 (11) Bilateral lower extremity edema (12) Dementia ICD Codes: F03.90 - Unspecified dementia without behavioral disturbance SNOMED: 55697991 Qualifiers: Qualified Codes: F01.50 - Vascular dementia without behavioral disturbance (13) Coffee ground vomiting ICD Codes: K92.0 - Hematemesis SNOMED: 15582053 (14) Leukocytosis ICD Codes: D72.829 - Elevated white blood cell count, unspecified SNOMED: 660596293, 286805588 (15) UTI (urinary tract infection) ICD Codes: N39.0 - Urinary tract infection, site not specified SNOMED: 69146300 Status: progressing Assessment/Plan leukocytosis abx per id afebrile no recent gi bleed improving reviewed meds and chart elev lft Subjective ROS Limited/Unobtainable: Yes Constitutional: Reports: no symptoms Allergies: Coded Allergies: No Known Allergies (Verified , 12/27/08) Objective Last 24 Hour Vital Signs Date Time Temp Pulse Resp B/P Pulse Ox O2 Delivery O2 Flow Rate FiO2 12/04/16 08:25 99.1 84 22 112/58 95 Room Air 12/04/16 07:51 Venturi Mask 14.0 55 12/04/16 07:50 96 Venturi Mask 14.0 55 12/04/16 07:49 86 18 Venturi Mask 14.0 55 12/04/16 04:00 97.9 82 22 103/61 94 Simple Mask 10.0 12/04/16 00:00 97.7 82 22 98/61 Simple Mask 10.0 12/03/16 20:42 Venturi Mask 14.0 55 12/03/16 20:41 96 Venturi Mask 14.0 55 12/03/16 20:41 82 18 Venturi Mask 14.0 55 12/03/16 20:00 97.9 80 22 140/72 96 Venturi Mask 15.0 12/03/16 16:00 98.1 69 18 105/60 95 Venturi Mask 15.0 12/03/16 11:59 85 Intake and Output 12/03/16 12/04/16 19:00 07:00 Intake Total 27.5 ml 250 ml Output Total 250 ml 400 ml Balance -222.5 ml -150 ml Intake Free Water 100 ml IV Total 27.5 ml Tube Feeding 150 ml Output Urine Total 250 ml 400 ml # Bowel Movements 1 1 Laboratory Tests 12/04/16 06:30: White Blood Count 16.7H, Red Blood Count 3.38L, Hemoglobin 10.2L, Hematocrit 33.4L, Mean Corpuscular Volume 99, Mean Corpuscular Hemoglobin 30.2, Mean Corpuscular Hemoglobin Concent 30.6L, Red Cell Distribution Width 14.4, Platelet Count 363, Mean Platelet Volume 7.9, Neutrophils (%) (Auto) , Lymphocytes (%) (Auto) , Monocytes (%) (Auto) , Eosinophils (%) (Auto) , Basophils (%) (Auto) , Differential Total Cells Counted 100, Neutrophils % ( Manual) 87H, Lymphocytes % (Manual) 9L, Monocytes % (Manual) 2, Eosinophils % ( Manual) 0, Basophils % (Manual) 0, Band Neutrophils 2, Platelet Estimate Adequate, Platelet Morphology Normal, Hypochromasia 1+, Sodium Level 154H, Potassium Level 3.6, Chloride Level 114H, Carbon Dioxide Level 28, Anion Gap 12 , Blood Urea Nitrogen 60H, Creatinine 2.1H, Estimat Glomerular Filtration Rate , Glucose Level 188H, Calcium Level 8.5L, Iron Level 32L, Total Iron Binding Capacity 101L, Percent Iron Saturation 32, Unsaturated Iron Binding 69L, Total Bilirubin 0.7, Aspartate Amino Transf (AST/SGOT) 43H, Alanine Aminotransferase ( ALT/SGPT) 38, Alkaline Phosphatase 145H, Total Protein 6.4L, Albumin 2.2L, Globulin 4.2, Albumin/Globulin Ratio 0.5L, CA 19-9 Antigen 34.84 Height (Feet): 5 Height (Inches): 7.00 Weight (Pounds): 221 Neck: supple Cardiovascular: regularly irregular Respiratory/Chest: lungs clear Aliza Faria MD Dec 04, 2016 11:40
[2016-12-04 12:27] VITALS: BP 96/57
--- NOTE | 2016-12-04 13:10 | General Progress Note ---
Assessment/Plan Problem List: (1) Gallstone pancreatitis ICD Codes: K85.10 - Biliary acute pancreatitis without necrosis or infection SNOMED: 58361299 Assessment/Plan improving labs MRCP no CBD stone ? passed CBD stone GTF fu INR fu lfts ca 19-9 Subjective ROS Limited/Unobtainable: No Allergies: Coded Allergies: No Known Allergies (Verified , 12/27/08) Subjective no event Objective Last 24 Hour Vital Signs Date Time Temp Pulse Resp B/P Pulse Ox O2 Delivery O2 Flow Rate FiO2 12/04/16 12:27 98.8 89 21 96/57 97 Nasal Cannula 15.0 12/04/16 08:25 99.1 84 22 112/58 95 Room Air 12/04/16 07:51 Venturi Mask 14.0 55 12/04/16 07:50 96 Venturi Mask 14.0 55 12/04/16 07:49 86 18 Venturi Mask 14.0 55 12/04/16 04:00 97.9 82 22 103/61 94 Simple Mask 10.0 12/04/16 00:00 97.7 82 22 98/61 Simple Mask 10.0 12/03/16 20:42 Venturi Mask 14.0 55 12/03/16 20:41 96 Venturi Mask 14.0 55 12/03/16 20:41 82 18 Venturi Mask 14.0 55 12/03/16 20:00 97.9 80 22 140/72 96 Venturi Mask 15.0 12/03/16 16:00 98.1 69 18 105/60 95 Venturi Mask 15.0 Intake and Output 12/03/16 12/04/16 19:00 07:00 Intake Total 27.5 ml 250 ml Output Total 250 ml 400 ml Balance -222.5 ml -150 ml Intake Free Water 100 ml IV Total 27.5 ml Tube Feeding 150 ml Output Urine Total 250 ml 400 ml # Bowel Movements 1 1 Laboratory Tests 12/04/16 06:30: White Blood Count 16.7H, Red Blood Count 3.38L, Hemoglobin 10.2L, Hematocrit 33.4L, Mean Corpuscular Volume 99, Mean Corpuscular Hemoglobin 30.2, Mean Corpuscular Hemoglobin Concent 30.6L, Red Cell Distribution Width 14.4, Platelet Count 363, Mean Platelet Volume 7.9, Neutrophils (%) (Auto) , Lymphocytes (%) (Auto) , Monocytes (%) (Auto) , Eosinophils (%) (Auto) , Basophils (%) (Auto) , Differential Total Cells Counted 100, Neutrophils % ( Manual) 87H, Lymphocytes % (Manual) 9L, Monocytes % (Manual) 2, Eosinophils % ( Manual) 0, Basophils % (Manual) 0, Band Neutrophils 2, Platelet Estimate Adequate, Platelet Morphology Normal, Hypochromasia 1+, Sodium Level 154H, Potassium Level 3.6, Chloride Level 114H, Carbon Dioxide Level 28, Anion Gap 12 , Blood Urea Nitrogen 60H, Creatinine 2.1H, Estimat Glomerular Filtration Rate , Glucose Level 188H, Calcium Level 8.5L, Iron Level 32L, Total Iron Binding Capacity 101L, Percent Iron Saturation 32, Unsaturated Iron Binding 69L, Total Bilirubin 0.7, Aspartate Amino Transf (AST/SGOT) 43H, Alanine Aminotransferase ( ALT/SGPT) 38, Alkaline Phosphatase 145H, Total Protein 6.4L, Albumin 2.2L, Globulin 4.2, Albumin/Globulin Ratio 0.5L, CA 19-9 Antigen 34.84 Height (Feet): 5 Height (Inches): 7.00 Weight (Pounds): 221 General Appearance: alert EENT: normal ENT inspection Neck: supple Cardiovascular: normal rate Respiratory/Chest: decreased breath sounds Abdomen: normal bowel sounds, non tender, soft Extremities: non-tender FLOYD MARIANO Dec 04, 2016 13:10
--- NOTE | 2016-12-04 15:25 | Wound Nurse Progress Note ---
Wound RN Progress Note Wound Consult reassessed left and right ear, no change noted to site, treatment done as ordered, tolerated well, cushion provided to ears. reassessed lower mid forehead , no change noted to site, treatment done as ordered, tolerated well, cushion provided to site and bridge of nose. JO ABBOTT Dec 04, 2016 15:25
--- NOTE | 2016-12-04 15:26 | Infectious Diseases Prog Note ---
Assessment/Plan Problems: (1) HCAP (healthcare-associated pneumonia) Assessment & Plan: on vancomycin and zosyn, monitor CXR, sputum culture showed no growth , pulmonary is following (2) UTI (urinary tract infection) Assessment & Plan: on zosyn, no urine culture was done (3) Sepsis Assessment & Plan: with coag negative staph which is most likely contaminant , and Citrobacter diversus which is real , source most likely GI or tract . already on zosyn , may need ERCP to evaluate the CBD .repeated blood culture is negative so far which confirm clearance (4) FABIOLA (acute kidney injury) Assessment & Plan: due to sepsis, continue hydration, avoid nephrotoxic meds (5) Hyperglycemia Assessment & Plan: due to pancreatitis , continue insulin , and titrate to keep glucose level between 80-120 (6) Acute pancreatitis Assessment & Plan: complicated with intraabdominal phlegmon , will continue wide spectrum antibiotics therapy, may need ERCP for source control to relief CBD if really obstructed. (7) Common bile duct (CBD) obstruction Assessment & Plan: MRI didn't show any mass or stone, further management is as per GI service Subjective ROS Limited/Unobtainable: Yes Allergies: Coded Allergies: No Known Allergies (Verified , 12/27/08) Subjective he is on Ventimask with high flow oxygen , doesn't follow commands . nonverbal, not in distress, afebrile. Objective Vital Signs Last 24 Hour Vital Signs Date Time Temp Pulse Resp B/P Pulse Ox O2 Delivery O2 Flow Rate FiO2 12/04/16 12:27 98.8 89 21 96/57 97 Nasal Cannula 15.0 12/04/16 08:25 99.1 84 21 112/58 95 Simple Mask 15.0 12/04/16 07:51 Venturi Mask 14.0 55 12/04/16 07:50 96 Venturi Mask 14.0 55 12/04/16 07:49 86 18 Venturi Mask 14.0 55 12/04/16 04:00 97.9 82 22 103/61 94 Simple Mask 10.0 12/04/16 00:00 97.7 82 22 98/61 Simple Mask 10.0 12/03/16 20:42 Venturi Mask 14.0 55 12/03/16 20:41 96 Venturi Mask 14.0 55 12/03/16 20:41 82 18 Venturi Mask 14.0 55 12/03/16 20:00 97.9 80 22 140/72 96 Venturi Mask 15.0 12/03/16 16:00 98.1 69 18 105/60 95 Venturi Mask 15.0 Height (Feet): 5 Height (Inches): 7.00 Weight (Pounds): 221 General Appearance: WD/WN, no acute distress HEENT: normocephalic, atraumatic, anicteric, mucous membranes moist Respiratory/Chest: chest wall non-tender, no respiratory distress, no accessory muscle use, decreased breath sounds, crackles/rales Cardiovascular: normal peripheral pulses, normal rate, regular rhythm Abdomen: normal bowel sounds, soft, non tender, no organomegaly, non distended , no mass Extremities: no cyanosis, no clubbing Skin: no rash, no lesions, ulcers Laboratory Tests Test 12/04/16 06:30 White Blood Count 16.7 K/UL (4.8-10.8) H Red Blood Count 3.38 M/UL (4.70-6.10) L Hemoglobin 10.2 G/DL (14.2-18.0) L Hematocrit 33.4 % (42.0-52.0) L Mean Corpuscular Volume 99 FL (80-99) Mean Corpuscular Hemoglobin 30.2 PG (27.0-31.0) Mean Corpuscular Hemoglobin Concent 30.6 G/DL (32.0-36.0) L Red Cell Distribution Width 14.4 % (11.6-14.8) Platelet Count 363 K/UL (150-450) Mean Platelet Volume 7.9 FL (6.5-10.1) Neutrophils (%) (Auto) % (45.0-75.0) Lymphocytes (%) (Auto) % (20.0-45.0) Monocytes (%) (Auto) % (1.0-10.0) Eosinophils (%) (Auto) % (0.0-3.0) Basophils (%) (Auto) % (0.0-2.0) Differential Total Cells Counted 100 Neutrophils % (Manual) 87 % (45-75) H Lymphocytes % (Manual) 9 % (20-45) L Monocytes % (Manual) 2 % (1-10) Eosinophils % (Manual) 0 % (0-3) Basophils % (Manual) 0 % (0-2) Band Neutrophils 2 % (0-8) Platelet Estimate Adequate Platelet Morphology Normal Hypochromasia 1+ Sodium Level 154 mEQ/L (135-145) H Potassium Level 3.6 mEQ/L (3.4-4.9) Chloride Level 114 mEQ/L (98-107) H Carbon Dioxide Level 28 mEQ/L (20-30) Anion Gap 12 (5-15) Blood Urea Nitrogen 60 mg/dL (7-23) H Creatinine 2.1 mg/dL (0.7-1.2) H Estimat Glomerular Filtration Rate mL/min (>60) Glucose Level 188 mg/dL (74-106) H Calcium Level 8.5 mg/dL (8.6-10.2) L Iron Level 32 ug/dL (59-158) L Total Iron Binding Capacity 101 ug/dL (250-400) L Percent Iron Saturation 32 % (15-50) Unsaturated Iron Binding 69 ug/dL (112-346) L Total Bilirubin 0.7 mg/dL (0.0-1.2) Aspartate Amino Transf (AST/SGOT) 43 U/L (5-40) H Alanine Aminotransferase (ALT/SGPT) 38 U/L (3-41) Alkaline Phosphatase 145 U/L (40-129) H Total Protein 6.4 g/dL (6.6-8.7) L Albumin 2.2 g/dL (3.5-5.2) L Globulin 4.2 g/dL Albumin/Globulin Ratio 0.5 (1.0-2.7) L CA 19-9 Antigen 34.84 U/mL (< 37) Current Medications Medications (Trade) Dose Ordered Sig/Jamaal Route PRN Reason Start Time Stop Time Status Last Admin Dose Admin Acetaminophen (Tylenol) 650 mg Q4H PRN ORAL Fever>100.5 12/03/16 18:00 01/02/17 17:59 Clonidine HCl (Catapres) 0.1 mg Q8H PRN GT sbp> 160 12/03/16 18:00 01/02/17 17:59 Dextrose 1,000 ml @ 85 mls/hr [id number] IV 12/03/16 18:30 01/02/17 18:29 12/04/16 05:48 Dextrose (Dextrose 50%) STAT PRN IV Hypoglycemia 12/03/16 18:00 01/02/17 17:59 Insulin Aspart (NovoLOG) EVERY 6 HOURS SUBQ 12/04/16 00:00 01/03/17 00:00 12/04/16 13:08 Insulin Detemir (Levemir) 8 units Q12HR SUBQ 12/03/16 21:00 01/02/17 20:59 12/04/16 10:19 Lorazepam (Ativan 2mg/ml 1ml) 2 mg Q2H PRN IV agitation 12/03/16 18:00 12/10/16 17:59 Morphine Sulfate (Morphine Sulfate) 4 mg Q4H PRN IVP Severe Pain (Pain Scale 7-10) 12/03/16 18:00 12/10/16 17:59 Nitroglycerin (Ntg) 0.4 mg Q5M PRN SL Prn Chest Pain 12/03/16 18:00 01/02/17 17:59 Ondansetron HCl (Zofran) 4 mg Q6H PRN IVP Nausea & Vomiting 12/03/16 18:00 01/02/17 17:59 Pantoprazole (Protonix) 40 mg DAILY IVP 12/04/16 09:00 01/03/17 08:59 12/04/16 10:20 Piperacillin Sod/ Tazobactam Sod/ Sodium Chloride (Zosyn/Sodium Chloride) 110 ml @ 27.5 mls/hr Q12HR@0000,1200 IVPB 12/04/16 00:00 12/06/16 00:00 12/04/16 12:36 Polyethylene Glycol (Miralax) 17 gm DAILYPRN PRN ORAL Constipation 12/03/16 18:00 01/02/17 17:59 Vancomycin HCl (Vanco rx to dose) 1 ea DAILY PRN MISC Per rx protocol 12/03/16 18:00 01/02/17 17:59 Ariana Acevedo M.D. Dec 04, 2016 15:26
[2016-12-04 16:00] VITALS: BP 114/71
--- NOTE | 2016-12-04 16:04 | Cardiac Electrophysiology PN ---
Assessment/Plan Assessment/Plan 1. Sinus tachycardia due to sepsis and dehydration. Improved 2. Paroxysmal atrial fibrillation. Coumadin is on hold until the INR comes to therapeutic range and in preparation of procedure. Off of any AV teodora jacinto. Echo EF Normal 3. Sepsis. On broad-spectrum antibiotic 4. Status post percutaneous endoscopic gastrostomy placement, had abdominal MRI that showed No evidence of choledocholithiasis. Moderate biliary ductal dilatation is present. Findings may be on the basis of focal pancreatitis involving the head of the pancreas and/or duodenitis as there is marked thickening of the wall the second and third portions of the duodenum. 5. Hypernatremia and azotemia secondary to dehydration.On iv fluids 6. Coffee-ground emesis. F/U per Dr. Wilson. 7. Billiary Pancreatitis.MRCP no CBD stone? passed CBD stone DW RN Subjective Subjective Nonverbal.Transferred to [facility]. Objective Last 24 Hour Vital Signs Date Time Temp Pulse Resp B/P Pulse Ox O2 Delivery O2 Flow Rate FiO2 12/04/16 12:27 98.8 89 21 96/57 97 Nasal Cannula 15.0 12/04/16 08:25 99.1 84 21 112/58 95 Simple Mask 15.0 12/04/16 07:51 Venturi Mask 14.0 55 12/04/16 07:50 96 Venturi Mask 14.0 55 12/04/16 07:49 86 18 Venturi Mask 14.0 55 12/04/16 04:00 97.9 82 22 103/61 94 Simple Mask 10.0 12/04/16 00:00 97.7 82 22 98/61 Simple Mask 10.0 12/03/16 20:42 Venturi Mask 14.0 55 12/03/16 20:41 96 Venturi Mask 14.0 55 12/03/16 20:41 82 18 Venturi Mask 14.0 55 12/03/16 20:00 97.9 80 22 140/72 96 Venturi Mask 15.0 Intake and Output 12/03/16 12/04/16 19:00 07:00 Intake Total 27.5 ml 250 ml Output Total 250 ml 400 ml Balance -222.5 ml -150 ml Intake Free Water 100 ml IV Total 27.5 ml Tube Feeding 150 ml Output Urine Total 250 ml 400 ml # Bowel Movements 1 1 Laboratory Tests Test 12/04/16 06:30 White Blood Count 16.7 K/UL (4.8-10.8) H Red Blood Count 3.38 M/UL (4.70-6.10) L Hemoglobin 10.2 G/DL (14.2-18.0) L Hematocrit 33.4 % (42.0-52.0) L Mean Corpuscular Volume 99 FL (80-99) Mean Corpuscular Hemoglobin 30.2 PG (27.0-31.0) Mean Corpuscular Hemoglobin Concent 30.6 G/DL (32.0-36.0) L Red Cell Distribution Width 14.4 % (11.6-14.8) Platelet Count 363 K/UL (150-450) Mean Platelet Volume 7.9 FL (6.5-10.1) Neutrophils (%) (Auto) % (45.0-75.0) Lymphocytes (%) (Auto) % (20.0-45.0) Monocytes (%) (Auto) % (1.0-10.0) Eosinophils (%) (Auto) % (0.0-3.0) Basophils (%) (Auto) % (0.0-2.0) Differential Total Cells Counted 100 Neutrophils % (Manual) 87 % (45-75) H Lymphocytes % (Manual) 9 % (20-45) L Monocytes % (Manual) 2 % (1-10) Eosinophils % (Manual) 0 % (0-3) Basophils % (Manual) 0 % (0-2) Band Neutrophils 2 % (0-8) Platelet Estimate Adequate Platelet Morphology Normal Hypochromasia 1+ Sodium Level 154 mEQ/L (135-145) H Potassium Level 3.6 mEQ/L (3.4-4.9) Chloride Level 114 mEQ/L (98-107) H Carbon Dioxide Level 28 mEQ/L (20-30) Anion Gap 12 (5-15) Blood Urea Nitrogen 60 mg/dL (7-23) H Creatinine 2.1 mg/dL (0.7-1.2) H Estimat Glomerular Filtration Rate mL/min (>60) Glucose Level 188 mg/dL (74-106) H Calcium Level 8.5 mg/dL (8.6-10.2) L Iron Level 32 ug/dL (59-158) L Total Iron Binding Capacity 101 ug/dL (250-400) L Percent Iron Saturation 32 % (15-50) Unsaturated Iron Binding 69 ug/dL (112-346) L Total Bilirubin 0.7 mg/dL (0.0-1.2) Aspartate Amino Transf (AST/SGOT) 43 U/L (5-40) H Alanine Aminotransferase (ALT/SGPT) 38 U/L (3-41) Alkaline Phosphatase 145 U/L (40-129) H Total Protein 6.4 g/dL (6.6-8.7) L Albumin 2.2 g/dL (3.5-5.2) L Globulin 4.2 g/dL Albumin/Globulin Ratio 0.5 (1.0-2.7) L CA 19-9 Antigen 34.84 U/mL (< 37) Objective NECK: No JVD. LUNGS: Coarse rhonchi. CARDIOVASCULAR: Tachycardic S1 and S2 with no murmur. ABDOMEN: Soft. G-tube. EXTREMITIES: 1+ pitting edema. BRYON AC Dec 04, 2016 16:04
--- NOTE | 2016-12-04 16:16 | General Progress Note ---
Assessment/Plan Status: unchanged Status Narrative Cr 2.1 Assessment/Plan Acute renal failure due to sepsis , low BP , GI bleed Sepsis Hyperglycemia Choledocholithiasis Aspiration into lower respiratory tract coagulopathy 2 to anticoagulation use hx of At fib hx of CVA seizure disorder pressure ulcer dysphagia, G tube HTN elevated LFTs, declining Plan: Hydrate- D5 Stop Depakote, high LFTs, check level Avoid Nephrotoxics Monitor renal parameters and H&h Urine studies stop Norvasc and cardura for low bp Per orders Subjective ROS Limited/Unobtainable: Yes Allergies: Coded Allergies: No Known Allergies (Verified , 12/27/08) Objective Last 24 Hour Vital Signs Date Time Temp Pulse Resp B/P Pulse Ox O2 Delivery O2 Flow Rate FiO2 12/04/16 16:00 98.2 91 16 114/71 92 Nasal Cannula 15.0 12/04/16 12:27 98.8 89 21 96/57 97 Nasal Cannula 15.0 12/04/16 08:25 99.1 84 21 112/58 95 Simple Mask 15.0 12/04/16 07:51 Venturi Mask 14.0 55 12/04/16 07:50 96 Venturi Mask 14.0 55 12/04/16 07:49 86 18 Venturi Mask 14.0 55 12/04/16 04:00 97.9 82 22 103/61 94 Simple Mask 10.0 12/04/16 00:00 97.7 82 22 98/61 Simple Mask 10.0 12/03/16 20:42 Venturi Mask 14.0 55 12/03/16 20:41 96 Venturi Mask 14.0 55 12/03/16 20:41 82 18 Venturi Mask 14.0 55 12/03/16 20:00 97.9 80 22 140/72 96 Venturi Mask 15.0 Intake and Output 12/03/16 12/04/16 19:00 07:00 Intake Total 27.5 ml 250 ml Output Total 250 ml 400 ml Balance -222.5 ml -150 ml Intake Free Water 100 ml IV Total 27.5 ml Tube Feeding 150 ml Output Urine Total 250 ml 400 ml # Bowel Movements 1 1 Laboratory Tests 12/04/16 06:30: White Blood Count 16.7H, Red Blood Count 3.38L, Hemoglobin 10.2L, Hematocrit 33.4L, Mean Corpuscular Volume 99, Mean Corpuscular Hemoglobin 30.2, Mean Corpuscular Hemoglobin Concent 30.6L, Red Cell Distribution Width 14.4, Platelet Count 363, Mean Platelet Volume 7.9, Neutrophils (%) (Auto) , Lymphocytes (%) (Auto) , Monocytes (%) (Auto) , Eosinophils (%) (Auto) , Basophils (%) (Auto) , Differential Total Cells Counted 100, Neutrophils % ( Manual) 87H, Lymphocytes % (Manual) 9L, Monocytes % (Manual) 2, Eosinophils % ( Manual) 0, Basophils % (Manual) 0, Band Neutrophils 2, Platelet Estimate Adequate, Platelet Morphology Normal, Hypochromasia 1+, Sodium Level 154H, Potassium Level 3.6, Chloride Level 114H, Carbon Dioxide Level 28, Anion Gap 12 , Blood Urea Nitrogen 60H, Creatinine 2.1H, Estimat Glomerular Filtration Rate , Glucose Level 188H, Calcium Level 8.5L, Iron Level 32L, Total Iron Binding Capacity 101L, Percent Iron Saturation 32, Unsaturated Iron Binding 69L, Total Bilirubin 0.7, Aspartate Amino Transf (AST/SGOT) 43H, Alanine Aminotransferase ( ALT/SGPT) 38, Alkaline Phosphatase 145H, Total Protein 6.4L, Albumin 2.2L, Globulin 4.2, Albumin/Globulin Ratio 0.5L, CA 19-9 Antigen 34.84 Height (Feet): 5 Height (Inches): 7.00 Weight (Pounds): 221 General Appearance: mild distress Cardiovascular: tachycardia Respiratory/Chest: decreased breath sounds Objective other physical exam not changed ALONDRA FULTON Dec 04, 2016 16:16
[2016-12-04] MEDS ORDERED: NS 275ml ONE (16:28)
--- NOTE | 2016-12-04 17:24 | General Progress Note ---
Assessment/Plan Assessment/Plan ASSESSMENT: 1. Coagulopathy with supertherapeutic INR - remains elevated, can consider coumadin as per cards 2. Anemia 2/2 chronic disease, is without major changes, hgb >10 3. Leukocytosis secondary to underlying infection with pancreatitis and elevated lipase. 4. A-fibrillation was on coumadin before 5. r/o gastrointestinal bleed. 6. Dysphagia. 7. Dementia. 8. Hyperglycemia. 9. Sepsis. RECS: 1. Have ordered for PT and PTT mixing study 2. Transfuse as needed 3. Anemia w/u reviewed 4. Okay to restart coumadin though inr remains elevated 5. Appreciate GI, cards recs 6. Antibiotics on prn basis 7. Discussed with staff. 8. Continue PPI. Thank you, Abdifatah Ramirez MD Subjective Constitutional: Denies: chills, diaphoresis, fever, malaise, no symptoms, other , weakness HEENT: Denies: blurred vision, double vision, ear discharge, ear pain, eye pain , mouth pain, mouth swelling, no symptoms, nose congestion, nose pain, other, tearing, throat pain, throat swelling Cardiovascular: Denies: chest pain, edema, irregular heart rate, lightheadedness, no symptoms, other, palpitations, syncope Respiratory: Denies: SOB at rest, SOB with excertion, cough, no symptoms, orthopnea, other, shortness of breath, sputum, stridor, wheezing Gastrointestinal/Abdominal: Denies: abdomen distended, abdominal pain, black stools, blood in stool, constipated, diarrhea, difficulty swallowing, nausea, no symptoms, other, poor appetite, poor fluid intake, rectal bleeding, tarry stools, vomiting Genitourinary: Denies: burning, discharge, flank pain, frequency, hematuria, incontinence, no symptoms, other, pain, urgency Neurologic/Psychiatric: Denies: anxiety, depressed, emotional problems, headache, no symptoms, numbness, other, paresthesia, pre-existing deficit, seizure, tingling, tremors, weakness Endocrine: Denies: excessive sweating, flushing, increased hunger, increased thirst, increased urine, intolerance to cold, intolerance to heat, no symptoms, other, unexplained weight gain, unexplained weight loss Allergies: Coded Allergies: No Known Allergies (Verified , 12/27/08) Subjective stable, tired, no fevers, no chills, unchanged, off coumadin Objective Last 24 Hour Vital Signs Date Time Temp Pulse Resp B/P Pulse Ox O2 Delivery O2 Flow Rate FiO2 12/04/16 16:00 98.2 91 16 114/71 92 Nasal Cannula 15.0 12/04/16 12:27 98.8 89 21 96/57 97 Nasal Cannula 15.0 12/04/16 08:25 99.1 84 21 112/58 95 Simple Mask 15.0 12/04/16 07:51 Venturi Mask 14.0 55 12/04/16 07:50 96 Venturi Mask 14.0 55 12/04/16 07:49 86 18 Venturi Mask 14.0 55 12/04/16 04:00 97.9 82 22 103/61 94 Simple Mask 10.0 12/04/16 00:00 97.7 82 22 98/61 Simple Mask 10.0 12/03/16 20:42 Venturi Mask 14.0 55 12/03/16 20:41 96 Venturi Mask 14.0 55 12/03/16 20:41 82 18 Venturi Mask 14.0 55 12/03/16 20:00 97.9 80 22 140/72 96 Venturi Mask 15.0 Intake and Output 12/03/16 12/04/16 19:00 07:00 Intake Total 27.5 ml 250 ml Output Total 250 ml 400 ml Balance -222.5 ml -150 ml Intake Free Water 100 ml IV Total 27.5 ml Tube Feeding 150 ml Output Urine Total 250 ml 400 ml # Bowel Movements 1 1 Laboratory Tests 12/04/16 06:30: White Blood Count 16.7H, Red Blood Count 3.38L, Hemoglobin 10.2L, Hematocrit 33.4L, Mean Corpuscular Volume 99, Mean Corpuscular Hemoglobin 30.2, Mean Corpuscular Hemoglobin Concent 30.6L, Red Cell Distribution Width 14.4, Platelet Count 363, Mean Platelet Volume 7.9, Neutrophils (%) (Auto) , Lymphocytes (%) (Auto) , Monocytes (%) (Auto) , Eosinophils (%) (Auto) , Basophils (%) (Auto) , Differential Total Cells Counted 100, Neutrophils % ( Manual) 87H, Lymphocytes % (Manual) 9L, Monocytes % (Manual) 2, Eosinophils % ( Manual) 0, Basophils % (Manual) 0, Band Neutrophils 2, Platelet Estimate Adequate, Platelet Morphology Normal, Hypochromasia 1+, Sodium Level 154H, Potassium Level 3.6, Chloride Level 114H, Carbon Dioxide Level 28, Anion Gap 12 , Blood Urea Nitrogen 60H, Creatinine 2.1H, Estimat Glomerular Filtration Rate , Glucose Level 188H, Calcium Level 8.5L, Iron Level 32L, Total Iron Binding Capacity 101L, Percent Iron Saturation 32, Unsaturated Iron Binding 69L, Total Bilirubin 0.7, Aspartate Amino Transf (AST/SGOT) 43H, Alanine Aminotransferase ( ALT/SGPT) 38, Alkaline Phosphatase 145H, Total Protein 6.4L, Albumin 2.2L, Globulin 4.2, Albumin/Globulin Ratio 0.5L, CA 19-9 Antigen 34.84 Height (Feet): 5 Height (Inches): 7.00 Weight (Pounds): 221 General Appearance: no apparent distress EENT: TMs normal Neck: supple Cardiovascular: regular rhythm Respiratory/Chest: normal breath sounds Abdomen: soft Extremities: non-tender Edema: 1+ Leg (L), 1+ Leg (R) Edema: mild edema Neurologic: alert Skin: warm/dry Abdifatah Ramirez Dec 04, 2016 17:24
[2016-12-04 20:00] VITALS: BP 113/58
--- NOTE | 2016-12-04 23:22 | Diagnostic Imaging Report ---
APPROVED REPORT CPT Code: 77694 Present Symptoms Lower Extremity Pain: Bilateral BILATERAL: Imaging reveals a patent deep venous system bilaterally. There is no evidence of thrombus within the femoral, popliteal or tibial segments. The greater saphenous veins are also within normal limits. Doppler indicates normal spontaneous flow within these segments.
[2016-12-05] VITALS: BP 120/72
[2016-12-05 03:53] VITALS: BP 102/67
[2016-12-05] MEDS: Piperacillin/Tazobactam 3.375 GM in NS 110 ML IVPB SCH ×3 (05:00→21:10)
[2016-12-05] MEDS: NovoLOG Insulin Flexpen SUBQ SCH ×3 (05:26→18:29)
[2016-12-05 06:42] LABS: BASOPHILS % (AUTO) 0.4 % (0.0-2.0); EOSINOPHILS % (AUTO) 2.3 % (0.0-3.0); LYMPHOCYTES % (AUTO) 9.8 % (20.0-45.0); MEAN CORPUSCULAR HEMOGLOBIN 30.8 PG (27.0-31.0); MEAN CORPUSCULAR HGB CONC 31.2 G/DL (32.0-36.0); MEAN CORPUSCULAR VOLUME 99 FL (80-99); MEAN PLATELET VOLUME 7.7 FL (6.5-10.1); MONOCYTES % (AUTO) 4.4 % (1.0-10.0); NEUTROPHILS % (AUTO) 83.1 % (45.0-75.0); PLATELET COUNT 333 K/UL (150-450); RED BLOOD COUNT 3.02 M/UL (4.70-6.10)
[2016-12-05 07:02] LABS: ALANINE AMINOTRANSFERASE 32 U/L (3-41); ALBUMIN/GLOBULIN RATIO 0.4 (1.0-2.7); ANION GAP 11 (5-15); ASPARTATE AMINO TRANSFERASE 35 U/L (5-40); CALCIUM 8.1 mg/dL (8.6-10.2); CARBON DIOXIDE 28 mEQ/L (20-30); CHLORIDE 117 mEQ/L (98-107); CREATININE 1.8 mg/dL (0.7-1.2); HEMOLYSIS 0; POTASSIUM 3.7 mEQ/L (3.4-4.9); SODIUM 156 mEQ/L (135-145); TOTAL PROTEIN 6.1 g/dL (6.6-8.7)
--- NOTE | 2016-12-05 07:36 | General Progress Note ---
Assessment/Plan Problem List: (1) Hyperglycemia ICD Codes: R73.9 - Hyperglycemia, unspecified SNOMED: 51050604 (2) FABIOLA (acute kidney injury) ICD Codes: N17.9 - Acute kidney failure, unspecified SNOMED: 85565928 (3) Coagulopathy ICD Codes: D68.9 - Coagulopathy SNOMED: 70608199 (4) Acute pancreatitis ICD Codes: K85.90 - Acute pancreatitis without necrosis or infection, unspecified SNOMED: 948141312 Qualifiers: Qualified Codes: K85.10 - Biliary acute pancreatitis without necrosis or infection Assessment/Plan increase Levemir 8 to 10 units bid continue Novolog sliding scale as is Subjective ROS Limited/Unobtainable: Yes Allergies: Coded Allergies: No Known Allergies (Verified , 12/27/08) Subjective events noted - on O2 mask Objective Last 24 Hour Vital Signs Date Time Temp Pulse Resp B/P Pulse Ox O2 Delivery O2 Flow Rate FiO2 12/05/16 03:53 98.2 77 20 102/67 100 Simple Mask 15.0 12/05/16 00:00 98.1 85 22 120/72 97 Simple Mask 15.0 12/04/16 20:38 Venturi Mask 14.0 55 12/04/16 20:38 86 18 Venturi Mask 14.0 55 12/04/16 20:38 96 Venturi Mask 14.0 55 12/04/16 20:00 98.8 80 17 113/58 96 Nasal Cannula 15.0 12/04/16 16:00 98.2 91 16 114/71 92 Nasal Cannula 15.0 12/04/16 12:27 98.8 89 21 96/57 97 Nasal Cannula 15.0 12/04/16 08:25 99.1 84 21 112/58 95 Simple Mask 15.0 12/04/16 07:51 Venturi Mask 14.0 55 12/04/16 07:50 96 Venturi Mask 14.0 55 12/04/16 07:49 86 18 Venturi Mask 14.0 55 Intake and Output 12/04/16 12/05/16 19:00 07:00 Intake Total 1320.0 ml 1775.0 ml Output Total 300 ml 1100 ml Balance 1020.0 ml 675.0 ml Intake Free Water 60 ml IV Total 990.0 ml 1240.0 ml Tube Feeding 330 ml 475 ml Output Urine Total 300 ml 1100 ml # Bowel Movements 1 Laboratory Tests 12/04/16 19:40: PT Mixing Study [Pending], Mix PT Incubation Time [Pending], Mix PT Patient/ Normal 1:1 [Pending], PTT Mixing Study [Pending], APTT Patient/Control Mix [ Pending], Mix PTT Incubation Time [Pending], Mix PTT Normal/Saline 1:1 Immediate [Pending], Thrombin Time Normal Plasma [Pending] 12/04/16 20:30: Stool Occult Blood [Pending] 12/05/16 05:30: White Blood Count 14.0H, Red Blood Count 3.02L, Hemoglobin 9.3L, Hematocrit 29.9L, Mean Corpuscular Volume 99, Mean Corpuscular Hemoglobin 30.8, Mean Corpuscular Hemoglobin Concent 31.2L, Red Cell Distribution Width 14.0, Platelet Count 333, Mean Platelet Volume 7.7, Neutrophils (%) (Auto) 83.1H, Lymphocytes (%) (Auto) 9.8L, Monocytes (%) (Auto) 4.4, Eosinophils (%) (Auto) 2.3, Basophils (%) (Auto) 0.4, Sodium Level 156H, Potassium Level 3.7, Chloride Level 117H, Carbon Dioxide Level 28, Anion Gap 11, Blood Urea Nitrogen 50H, Creatinine 1.8H, Estimat Glomerular Filtration Rate , Glucose Level 175H, Calcium Level 8.1L, Total Bilirubin 0.6, Aspartate Amino Transf (AST/SGOT) 35, Alanine Aminotransferase (ALT/SGPT) 32, Alkaline Phosphatase 145H, Total Protein 6.1L, Albumin 2.0L, Globulin 4.1, Albumin/Globulin Ratio 0.4L, Random Vancomycin Level 12.3 Height (Feet): 5 Height (Inches): 7.00 Weight (Pounds): 221 General Appearance: lethargic Neck: normal alignment Respiratory/Chest: decreased breath sounds Abdomen: normal bowel sounds Edema: 1+ Arm (L), 1+ Arm (R), 1+ Leg (L), 1+ Leg (R), 1+ Pedal (L), 1+ Pedal ( R), 1+ Generalized Objective Current Medications Medications (Trade) Dose Ordered Sig/Jamaal Route PRN Reason Start Time Stop Time Status Last Admin Dose Admin Acetaminophen (Tylenol) 650 mg Q4H PRN ORAL Fever>100.5 12/03/16 18:00 01/02/17 17:59 Clonidine HCl (Catapres) 0.1 mg Q8H PRN GT sbp> 160 12/03/16 18:00 01/02/17 17:59 Dextrose (D5W 1000ml) 1,000 ml @ 85 mls/hr [id number] IV 12/03/16 18:30 01/02/17 18:29 12/05/16 05:00 Dextrose (Dextrose 50%) STAT PRN IV Hypoglycemia 12/03/16 18:00 01/02/17 17:59 Insulin Aspart (NovoLOG) EVERY 6 HOURS SUBQ 12/04/16 00:00 01/03/17 00:00 12/05/16 05:26 Insulin Detemir (Levemir) 8 units Q12HR SUBQ 12/03/16 21:00 01/02/17 20:59 12/04/16 21:12 Lorazepam (Ativan 2mg/ml 1ml) 2 mg Q2H PRN IV agitation 12/03/16 18:00 12/10/16 17:59 Morphine Sulfate (Morphine Sulfate) 4 mg Q4H PRN IVP Severe Pain (Pain Scale 7-10) 12/03/16 18:00 12/10/16 17:59 Nitroglycerin (Ntg) 0.4 mg Q5M PRN SL Prn Chest Pain 12/03/16 18:00 01/02/17 17:59 Ondansetron HCl (Zofran) 4 mg Q6H PRN IVP Nausea & Vomiting 12/03/16 18:00 01/02/17 17:59 Pantoprazole (Protonix) 40 mg DAILY IVP 12/04/16 09:00 01/03/17 08:59 12/04/16 10:20 Piperacillin Sod/ Tazobactam Sod/ Sodium Chloride (Zosyn/Sodium Chloride) 110 ml @ 27.5 mls/hr Q8HR IVPB 12/04/16 22:00 12/11/16 21:59 12/05/16 05:00 Polyethylene Glycol (Miralax) 17 gm DAILYPRN PRN ORAL Constipation 12/03/16 18:00 01/02/17 17:59 Vancomycin HCl 1 ea 1 ea DAILY PRN MISC Per rx protocol 12/03/16 18:00 01/02/17 17:59 Item Value Date Time Bedside Blood Glucose 188 mg/dl H 12/05/16 0615 Bedside Blood Glucose 208 mg/dl H 12/05/16 0024 Bedside Blood Glucose 203 mg/dl H 12/04/16 2112 Bedside Blood Glucose 212 mg/dl H 12/04/16 1820 Bedside Blood Glucose 210 mg/dl H 12/04/16 1308 Bedside Blood Glucose 171 mg/dl H 12/04/16 1019 SUZIE FELDER 22, 2017 07:36
[2016-12-05 08:40] VITALS: BP 106/66
--- NOTE | 2016-12-05 09:37 | General Progress Note ---
Assessment/Plan Status: unchanged Status Narrative Cr lower- Na remains high Assessment/Plan Acute renal failure due to sepsis , low BP , GI bleed Sepsis Hyperglycemia Choledocholithiasis Aspiration into lower respiratory tract coagulopathy 2 to anticoagulation use hx of At fib hx of CVA seizure disorder pressure ulcer dysphagia, G tube HTN elevated LFTs, declining Plan: Hydrate- D5 Stop Depakote, high LFTs, check level Avoid Nephrotoxics Monitor renal parameters and H&h Urine studies stop Norvasc and cardura for low bp Per orders Subjective ROS Limited/Unobtainable: Yes Allergies: Coded Allergies: No Known Allergies (Verified , 12/27/08) Objective Last 24 Hour Vital Signs Date Time Temp Pulse Resp B/P Pulse Ox O2 Delivery O2 Flow Rate FiO2 12/05/16 08:40 97.9 78 22 106/66 97 Simple Mask 15.0 12/05/16 03:53 98.2 77 20 102/67 100 Simple Mask 15.0 12/05/16 00:00 98.1 85 22 120/72 97 Simple Mask 15.0 12/04/16 20:38 Venturi Mask 14.0 55 12/04/16 20:38 86 18 Venturi Mask 14.0 55 12/04/16 20:38 96 Venturi Mask 14.0 55 12/04/16 20:00 98.8 80 17 113/58 96 Nasal Cannula 15.0 12/04/16 16:00 98.2 91 16 114/71 92 Nasal Cannula 15.0 12/04/16 12:27 98.8 89 21 96/57 97 Nasal Cannula 15.0 Intake and Output 12/04/16 12/05/16 19:00 07:00 Intake Total 1320.0 ml 1775.0 ml Output Total 300 ml 1100 ml Balance 1020.0 ml 675.0 ml Intake Free Water 60 ml IV Total 990.0 ml 1240.0 ml Tube Feeding 330 ml 475 ml Output Urine Total 300 ml 1100 ml # Bowel Movements 1 Laboratory Tests 12/04/16 19:40: PT Mixing Study [Pending], Mix PT Incubation Time [Pending], Mix PT Patient/ Normal 1:1 [Pending], PTT Mixing Study [Pending], APTT Patient/Control Mix [ Pending], Mix PTT Incubation Time [Pending], Mix PTT Normal/Saline 1:1 Immediate [Pending], Thrombin Time Normal Plasma [Pending] 12/04/16 20:30: Stool Occult Blood [Pending] 12/05/16 05:30: White Blood Count 14.0H, Red Blood Count 3.02L, Hemoglobin 9.3L, Hematocrit 29.9L, Mean Corpuscular Volume 99, Mean Corpuscular Hemoglobin 30.8, Mean Corpuscular Hemoglobin Concent 31.2L, Red Cell Distribution Width 14.0, Platelet Count 333, Mean Platelet Volume 7.7, Neutrophils (%) (Auto) 83.1H, Lymphocytes (%) (Auto) 9.8L, Monocytes (%) (Auto) 4.4, Eosinophils (%) (Auto) 2.3, Basophils (%) (Auto) 0.4, Sodium Level 156H, Potassium Level 3.7, Chloride Level 117H, Carbon Dioxide Level 28, Anion Gap 11, Blood Urea Nitrogen 50H, Creatinine 1.8H, Estimat Glomerular Filtration Rate , Glucose Level 175H, Calcium Level 8.1L, Total Bilirubin 0.6, Aspartate Amino Transf (AST/SGOT) 35, Alanine Aminotransferase (ALT/SGPT) 32, Alkaline Phosphatase 145H, Total Protein 6.1L, Albumin 2.0L, Globulin 4.1, Albumin/Globulin Ratio 0.4L, Random Vancomycin Level 12.3 Height (Feet): 5 Height (Inches): 7.00 Weight (Pounds): 221 General Appearance: no apparent distress Neck: stiff neck Cardiovascular: normal rate Respiratory/Chest: decreased breath sounds Abdomen: distended Objective other physical exam not changed ALONDRA FULTON Dec 05, 2016 09:37
[2016-12-05] MEDS ORDERED: Vancomycin 1.5 GM in D5W 325 ML IVPB SCH (10:00)
[2016-12-05] MEDS: Levemir Flexpen SUBQ SCH ×2 (10:23→21:27)
[2016-12-05] MEDS: Pantoprazole Inj IVP SCH (10:25)
--- NOTE | 2016-12-05 10:53 | General Progress Note ---
Progress Note Progress Note Surgery: Patient seen and examined at bedside. Non communicative. No acute changes. Afebrile, HD stable, leukocytosis improved today, electrolytes abnormal. Tolerating tube feeds, having BM's, pancreatitis improved?. MRCP as reported. Continue with medical management. No acute surgical intervention necessary. May consider repeat CT scan of abdomen to assess progression or improvement as compared to prior CT findings. Ozzie Flynn Dec 05, 2016 10:53
--- NOTE | 2016-12-05 11:02 | General Progress Note ---
Assessment/Plan Problem List: (1) Gallstone pancreatitis ICD Codes: K85.10 - Biliary acute pancreatitis without necrosis or infection SNOMED: 02757282 (2) Dementia ICD Codes: F03.90 - Unspecified dementia without behavioral disturbance SNOMED: 44632927 Qualifiers: Qualified Codes: F01.50 - Vascular dementia without behavioral disturbance (3) Gastrojejunostomy tube dislodgement (4) DKA, type 1 ICD Codes: E10.10 - Type 1 diabetes mellitus with ketoacidosis without coma SNOMED: 07336734, 028164504 (5) Feeding by G-tube ICD Codes: Z93.1 - Feeding by G-tube SNOMED: 679567226 (6) Anemia ICD Codes: D64.9 - Anemia SNOMED: 027282876 Assessment/Plan improving labs MRCP no CBD stone ? passed CBD stone GTF fu INR fu lfts repeat stool ob GT changed today at the bedside Subjective ROS Limited/Unobtainable: No Allergies: Coded Allergies: No Known Allergies (Verified , 12/27/08) Subjective no event Objective Last 24 Hour Vital Signs Date Time Temp Pulse Resp B/P Pulse Ox O2 Delivery O2 Flow Rate FiO2 12/05/16 09:52 83 18 Venturi Mask 14.0 55 12/05/16 08:40 97.9 78 22 106/66 97 Simple Mask 15.0 12/05/16 07:59 Venturi Mask 14.0 55 12/05/16 07:58 98 Venturi Mask 14.0 55 12/05/16 03:53 98.2 77 20 102/67 100 Simple Mask 15.0 12/05/16 00:00 98.1 85 22 120/72 97 Simple Mask 15.0 12/04/16 20:38 Venturi Mask 14.0 55 12/04/16 20:38 86 18 Venturi Mask 14.0 55 12/04/16 20:38 96 Venturi Mask 14.0 55 12/04/16 20:00 98.8 80 17 113/58 96 Nasal Cannula 15.0 12/04/16 16:00 98.2 91 16 114/71 92 Nasal Cannula 15.0 12/04/16 12:27 98.8 89 21 96/57 97 Nasal Cannula 15.0 Intake and Output 12/04/16 12/05/16 19:00 07:00 Intake Total 1320.0 ml 1775.0 ml Output Total 300 ml 1100 ml Balance 1020.0 ml 675.0 ml Intake Free Water 60 ml IV Total 990.0 ml 1240.0 ml Tube Feeding 330 ml 475 ml Output Urine Total 300 ml 1100 ml # Bowel Movements 1 Laboratory Tests 12/04/16 19:40: PT Mixing Study [Pending], Mix PT Incubation Time [Pending], Mix PT Patient/ Normal 1:1 [Pending], PTT Mixing Study [Pending], APTT Patient/Control Mix [ Pending], Mix PTT Incubation Time [Pending], Mix PTT Normal/Saline 1:1 Immediate [Pending], Thrombin Time Normal Plasma [Pending] 12/04/16 20:30: Stool Occult Blood [Pending] 12/05/16 05:30: White Blood Count 14.0H, Red Blood Count 3.02L, Hemoglobin 9.3L, Hematocrit 29.9L, Mean Corpuscular Volume 99, Mean Corpuscular Hemoglobin 30.8, Mean Corpuscular Hemoglobin Concent 31.2L, Red Cell Distribution Width 14.0, Platelet Count 333, Mean Platelet Volume 7.7, Neutrophils (%) (Auto) 83.1H, Lymphocytes (%) (Auto) 9.8L, Monocytes (%) (Auto) 4.4, Eosinophils (%) (Auto) 2.3, Basophils (%) (Auto) 0.4, Sodium Level 156H, Potassium Level 3.7, Chloride Level 117H, Carbon Dioxide Level 28, Anion Gap 11, Blood Urea Nitrogen 50H, Creatinine 1.8H, Estimat Glomerular Filtration Rate , Glucose Level 175H, Calcium Level 8.1L, Total Bilirubin 0.6, Aspartate Amino Transf (AST/SGOT) 35, Alanine Aminotransferase (ALT/SGPT) 32, Alkaline Phosphatase 145H, Total Protein 6.1L, Albumin 2.0L, Globulin 4.1, Albumin/Globulin Ratio 0.4L, Random Vancomycin Level 12.3 Height (Feet): 5 Height (Inches): 7.00 Weight (Pounds): 221 General Appearance: no apparent distress EENT: normal ENT inspection Neck: supple Cardiovascular: normal rate Respiratory/Chest: decreased breath sounds Abdomen: non tender, soft, decreased bowel sounds, distended Extremities: non-tender FLOYD MARIANO Dec 05, 2016 11:02
[2016-12-05 12:34] VITALS: BP 113/78
--- NOTE | 2016-12-05 14:55 | General Progress Note ---
Assessment/Plan Problem List: (1) Hyperglycemia ICD Codes: R73.9 - Hyperglycemia, unspecified SNOMED: 72207544 (2) FABIOLA (acute kidney injury) ICD Codes: N17.9 - Acute kidney failure, unspecified SNOMED: 95543581 (3) Choledocholithiasis ICD Codes: K80.50 - Calculus of bile duct without cholangitis or cholecystitis without obstruction SNOMED: 807586833 (4) Pressure ulcer ICD Codes: L89.90 - Pressure ulcer SNOMED: 754810395 (5) Fever ICD Codes: R50.9 - Fever SNOMED: 531483123 (6) Anemia ICD Codes: D64.9 - Anemia SNOMED: 828770864 (7) Cellulitis ICD Codes: L03.90 - Cellulitis SNOMED: 885873307 (8) Seizure disorder ICD Codes: G40.909 - Seizure disorder SNOMED: 187328904 (9) Sepsis ICD Codes: A41.9 - Sepsis, unspecified organism SNOMED: 26530404 Qualifiers: Qualified Codes: A41.9 - Sepsis, unspecified organism (10) Venous stasis ulcers ICD Codes: I83.009 - Venous stasis ulcers SNOMED: 205434029 (11) Bilateral lower extremity edema (12) Dementia ICD Codes: F03.90 - Unspecified dementia without behavioral disturbance SNOMED: 15446569 Qualifiers: Qualified Codes: F01.50 - Vascular dementia without behavioral disturbance (13) Coffee ground vomiting ICD Codes: K92.0 - Hematemesis SNOMED: 06456246 (14) Leukocytosis ICD Codes: D72.829 - Elevated white blood cell count, unspecified SNOMED: 145702146, 870324784 (15) UTI (urinary tract infection) ICD Codes: N39.0 - Urinary tract infection, site not specified SNOMED: 80892278 Status: progressing Assessment/Plan leukocytosis abx per id sepsis a fib h/o cva reivewed chart and labs Subjective ROS Limited/Unobtainable: Yes Constitutional: Reports: no symptoms Allergies: Coded Allergies: No Known Allergies (Verified , 12/27/08) Objective Last 24 Hour Vital Signs Date Time Temp Pulse Resp B/P Pulse Ox O2 Delivery O2 Flow Rate FiO2 12/05/16 12:34 97.5 86 22 113/78 97 Simple Mask 15.0 12/05/16 09:52 83 18 Venturi Mask 14.0 55 12/05/16 08:40 97.9 78 22 106/66 97 Simple Mask 15.0 12/05/16 07:59 Venturi Mask 14.0 55 12/05/16 07:58 98 Venturi Mask 14.0 55 12/05/16 03:53 98.2 77 20 102/67 100 Simple Mask 15.0 12/05/16 00:00 98.1 85 22 120/72 97 Simple Mask 15.0 12/04/16 20:38 Venturi Mask 14.0 55 12/04/16 20:38 86 18 Venturi Mask 14.0 55 12/04/16 20:38 96 Venturi Mask 14.0 55 12/04/16 20:00 98.8 80 17 113/58 96 Nasal Cannula 15.0 12/04/16 16:00 98.2 91 16 114/71 92 Nasal Cannula 15.0 Intake and Output 12/04/16 12/05/16 19:00 07:00 Intake Total 1320.0 ml 1775.0 ml Output Total 300 ml 1100 ml Balance 1020.0 ml 675.0 ml Intake Free Water 60 ml IV Total 990.0 ml 1240.0 ml Tube Feeding 330 ml 475 ml Output Urine Total 300 ml 1100 ml # Bowel Movements 1 Laboratory Tests 12/04/16 19:40: PT Mixing Study [Pending], Mix PT Incubation Time [Pending], Mix PT Patient/ Normal 1:1 [Pending], PTT Mixing Study [Pending], APTT Patient/Control Mix [ Pending], Mix PTT Incubation Time [Pending], Mix PTT Normal/Saline 1:1 Immediate [Pending], Thrombin Time Normal Plasma [Pending] 12/04/16 20:30: Stool Occult Blood Negative 12/05/16 05:30: White Blood Count 14.0H, Red Blood Count 3.02L, Hemoglobin 9.3L, Hematocrit 29.9L, Mean Corpuscular Volume 99, Mean Corpuscular Hemoglobin 30.8, Mean Corpuscular Hemoglobin Concent 31.2L, Red Cell Distribution Width 14.0, Platelet Count 333, Mean Platelet Volume 7.7, Neutrophils (%) (Auto) 83.1H, Lymphocytes (%) (Auto) 9.8L, Monocytes (%) (Auto) 4.4, Eosinophils (%) (Auto) 2.3, Basophils (%) (Auto) 0.4, Sodium Level 156H, Potassium Level 3.7, Chloride Level 117H, Carbon Dioxide Level 28, Anion Gap 11, Blood Urea Nitrogen 50H, Creatinine 1.8H, Estimat Glomerular Filtration Rate , Glucose Level 175H, Calcium Level 8.1L, Total Bilirubin 0.6, Aspartate Amino Transf (AST/SGOT) 35, Alanine Aminotransferase (ALT/SGPT) 32, Alkaline Phosphatase 145H, Total Protein 6.1L, Albumin 2.0L, Globulin 4.1, Albumin/Globulin Ratio 0.4L, Random Vancomycin Level 12.3 Height (Feet): 5 Height (Inches): 7.00 Weight (Pounds): 221 EENT: PERRL/EOMI Cardiovascular: normal rate Respiratory/Chest: lungs clear Abdomen: non tender Aliza Faria MD Dec 05, 2016 14:55
[2016-12-05 16:01] VITALS: BP 118/66
--- NOTE | 2016-12-05 16:03 | Infectious Diseases Prog Note ---
Assessment/Plan Problems: (1) HCAP (healthcare-associated pneumonia) Assessment & Plan: on vancomycin and zosyn, monitor CXR, sputum culture showed no growth , pulmonary is following (2) UTI (urinary tract infection) Assessment & Plan: on zosyn, no urine culture was done (3) Sepsis Assessment & Plan: with coag negative staph which is most likely contaminant , and Citrobacter diversus which is real , source most likely GI or tract . already on zosyn , may need ERCP to evaluate the CBD .repeated blood culture is negative so far which confirm clearance (4) FABIOLA (acute kidney injury) Assessment & Plan: due to sepsis, continue hydration, avoid nephrotoxic meds (5) Hyperglycemia Assessment & Plan: due to pancreatitis , continue insulin , and titrate to keep glucose level between 80-120 (6) Acute pancreatitis Assessment & Plan: complicated with intraabdominal phlegmon , will continue wide spectrum antibiotics therapy, may need ERCP for source control to relief CBD if really obstructed. (7) Common bile duct (CBD) obstruction Assessment & Plan: MRI didn't show any mass or stone, further management is as per GI service (8) Cellulitis of abdominal wall Assessment & Plan: due to G tube, S/P removal, already on wide spectrum antibiotics therapy, continue G tube care as needed (9) Gastrojejunostomy tube dislodgement Assessment & Plan: S/P replacement by GI , continue local care Subjective ROS Limited/Unobtainable: Yes Allergies: Coded Allergies: No Known Allergies (Verified , 12/27/08) Subjective he is comfortable, on Ventimask with high flow oxygen , doesn't follow commands . nonverbal, not in distress, afebrile. Objective Vital Signs Last 24 Hour Vital Signs Date Time Temp Pulse Resp B/P Pulse Ox O2 Delivery O2 Flow Rate FiO2 12/05/16 12:34 97.5 86 22 113/78 97 Simple Mask 15.0 12/05/16 09:52 83 18 Venturi Mask 14.0 55 12/05/16 08:40 97.9 78 22 106/66 97 Simple Mask 15.0 12/05/16 07:59 Venturi Mask 14.0 55 12/05/16 07:58 98 Venturi Mask 14.0 55 12/05/16 03:53 98.2 77 20 102/67 100 Simple Mask 15.0 12/05/16 00:00 98.1 85 22 120/72 97 Simple Mask 15.0 12/04/16 20:38 Venturi Mask 14.0 55 12/04/16 20:38 86 18 Venturi Mask 14.0 55 12/04/16 20:38 96 Venturi Mask 14.0 55 12/04/16 20:00 98.8 80 17 113/58 96 Nasal Cannula 15.0 12/04/16 16:00 98.2 91 16 114/71 92 Nasal Cannula 15.0 Height (Feet): 5 Height (Inches): 7.00 Weight (Pounds): 221 General Appearance: WD/WN, no acute distress HEENT: normocephalic, atraumatic, anicteric, mucous membranes moist Respiratory/Chest: chest wall non-tender, normal breath sounds, no respiratory distress, no accessory muscle use, decreased breath sounds, crackles/rales Cardiovascular: normal peripheral pulses, normal rate, regular rhythm, no gallop/murmur Abdomen: normal bowel sounds, soft, non tender, no organomegaly, non distended , no mass Extremities: no cyanosis, no clubbing Skin: no rash, no lesions, ulcers Laboratory Tests Test 12/04/16 19:40 12/04/16 20:30 12/05/16 05:30 PT Mixing Study Pending Mix PT Incubation Time Pending Mix PT Patient/Normal 1:1 Pending PTT Mixing Study Pending APTT Patient/Control Mix Pending Mix PTT Incubation Time Pending Mix PTT Normal/Saline 1:1 Immediate Pending Thrombin Time Normal Plasma Pending Stool Occult Blood Negative (NEGATIVE) White Blood Count 14.0 K/UL (4.8-10.8) H Red Blood Count 3.02 M/UL (4.70-6.10) L Hemoglobin 9.3 G/DL (14.2-18.0) L Hematocrit 29.9 % (42.0-52.0) L Mean Corpuscular Volume 99 FL (80-99) Mean Corpuscular Hemoglobin 30.8 PG (27.0-31.0) Mean Corpuscular Hemoglobin Concent 31.2 G/DL (32.0-36.0) L Red Cell Distribution Width 14.0 % (11.6-14.8) Platelet Count 333 K/UL (150-450) Mean Platelet Volume 7.7 FL (6.5-10.1) Neutrophils (%) (Auto) 83.1 % (45.0-75.0) H Lymphocytes (%) (Auto) 9.8 % (20.0-45.0) L Monocytes (%) (Auto) 4.4 % (1.0-10.0) Eosinophils (%) (Auto) 2.3 % (0.0-3.0) Basophils (%) (Auto) 0.4 % (0.0-2.0) Sodium Level 156 mEQ/L (135-145) H Potassium Level 3.7 mEQ/L (3.4-4.9) Chloride Level 117 mEQ/L (98-107) H Carbon Dioxide Level 28 mEQ/L (20-30) Anion Gap 11 (5-15) Blood Urea Nitrogen 50 mg/dL (7-23) H Creatinine 1.8 mg/dL (0.7-1.2) H Estimat Glomerular Filtration Rate mL/min (>60) Glucose Level 175 mg/dL (74-106) H Calcium Level 8.1 mg/dL (8.6-10.2) L Total Bilirubin 0.6 mg/dL (0.0-1.2) Aspartate Amino Transf (AST/SGOT) 35 U/L (5-40) Alanine Aminotransferase (ALT/SGPT) 32 U/L (3-41) Alkaline Phosphatase 145 U/L (40-129) H Total Protein 6.1 g/dL (6.6-8.7) L Albumin 2.0 g/dL (3.5-5.2) L Globulin 4.1 g/dL Albumin/Globulin Ratio 0.4 (1.0-2.7) L Random Vancomycin Level 12.3 ug/mL Current Medications Medications (Trade) Dose Ordered Sig/Jamaal Route PRN Reason Start Time Stop Time Status Last Admin Dose Admin Acetaminophen (Tylenol) 650 mg Q4H PRN ORAL Fever>100.5 12/03/16 18:00 01/02/17 17:59 Clonidine HCl (Catapres) 0.1 mg Q8H PRN GT sbp> 160 12/03/16 18:00 01/02/17 17:59 Dextrose (D5W 1000ml) 1,000 ml @ 85 mls/hr [id number] IV 12/03/16 18:30 01/02/17 18:29 12/05/16 05:00 Dextrose (Dextrose 50%) STAT PRN IV Hypoglycemia 12/03/16 18:00 01/02/17 17:59 Insulin Aspart (NovoLOG) EVERY 6 HOURS SUBQ 12/04/16 00:00 01/03/17 00:00 12/05/16 13:10 Insulin Detemir 10 units 10 units Q12HR SUBQ 12/05/16 09:00 01/04/17 08:59 12/05/16 10:23 Lorazepam (Ativan 2mg/ml 1ml) 2 mg Q2H PRN IV agitation 12/03/16 18:00 12/10/16 17:59 Morphine Sulfate (Morphine Sulfate) 4 mg Q4H PRN IVP Severe Pain (Pain Scale 7-10) 12/03/16 18:00 12/10/16 17:59 Nitroglycerin (Ntg) 0.4 mg Q5M PRN SL Prn Chest Pain 12/03/16 18:00 01/02/17 17:59 Ondansetron HCl (Zofran) 4 mg Q6H PRN IVP Nausea & Vomiting 12/03/16 18:00 01/02/17 17:59 Pantoprazole (Protonix) 40 mg DAILY IVP 12/04/16 09:00 01/03/17 08:59 12/05/16 10:25 Piperacillin Sod/ Tazobactam Sod/ Sodium Chloride (Zosyn/Sodium Chloride) 110 ml @ 27.5 mls/hr Q8HR IVPB 12/04/16 22:00 12/11/16 21:59 12/05/16 13:17 Polyethylene Glycol (Miralax) 17 gm DAILYPRN PRN ORAL Constipation 12/03/16 18:00 01/02/17 17:59 Vancomycin HCl 1 ea 1 ea DAILY PRN MISC Per rx protocol 12/03/16 18:00 01/02/17 17:59 Vancomycin HCl/ Dextrose (Vancomycin/D5W) 325 ml @ 162.5 mls/ hr Q48H IVPB 12/05/16 10:00 12/10/16 09:59 12/05/16 10:24 Ariana Acevedo M.D. Dec 05, 2016 16:03
[2016-12-05] MEDS: Morphine Sulfate 4mg/ml Inj IVP PRN (18:22)
--- NOTE | 2016-12-05 18:38 | Cardiac Electrophysiology PN ---
Assessment/Plan Assessment/Plan 1. Sinus tachycardia due to sepsis and dehydration. Improved 2. Paroxysmal atrial fibrillation.Hold Coumadin for GI bleed. Off of any AV teodora jacinto. Echo EF 40% 3. Sepsis. On broad-spectrum antibiotic 4. Status post percutaneous endoscopic gastrostomy placement, had abdominal MRI that showed No evidence of choledocholithiasis. Moderate biliary ductal dilatation is present.Findings may be on the basis of focal pancreatitis involving the head of the pancreas and/or duodenitis as there is marked thickening of the wall the second and third portions of the duodenum. 5. Hypernatremia and azotemia secondary to dehydration.On iv fluids 6. Coffee-ground emesis. F/U per Dr. Wilson. 7. Billiary Pancreatitis.MRCP no CBD stone? passed CBD stone DW RN Subjective Subjective Nonverbal.RN at bedside.No event overnight. Objective Last 24 Hour Vital Signs Date Time Temp Pulse Resp B/P Pulse Ox O2 Delivery O2 Flow Rate FiO2 12/05/16 16:01 98.2 91 22 118/66 91 Room Air 12/05/16 12:34 97.5 86 22 113/78 97 Simple Mask 15.0 12/05/16 09:52 83 18 Venturi Mask 14.0 55 12/05/16 08:40 97.9 78 22 106/66 97 Simple Mask 15.0 12/05/16 07:59 Venturi Mask 14.0 55 12/05/16 07:58 98 Venturi Mask 14.0 55 12/05/16 03:53 98.2 77 20 102/67 100 Simple Mask 15.0 12/05/16 00:00 98.1 85 22 120/72 97 Simple Mask 15.0 12/04/16 20:38 Venturi Mask 14.0 55 12/04/16 20:38 86 18 Venturi Mask 14.0 55 12/04/16 20:38 96 Venturi Mask 14.0 55 12/04/16 20:00 98.8 80 17 113/58 96 Nasal Cannula 15.0 Intake and Output 12/04/16 12/05/16 19:00 07:00 Intake Total 1320.0 ml 1775.0 ml Output Total 300 ml 1100 ml Balance 1020.0 ml 675.0 ml Intake Free Water 60 ml IV Total 990.0 ml 1240.0 ml Tube Feeding 330 ml 475 ml Output Urine Total 300 ml 1100 ml # Bowel Movements 1 Laboratory Tests Test 12/04/16 19:40 12/04/16 20:30 12/05/16 05:30 PT Mixing Study Pending Mix PT Incubation Time Pending Mix PT Patient/Normal 1:1 Pending PTT Mixing Study Pending APTT Patient/Control Mix Pending Mix PTT Incubation Time Pending Mix PTT Normal/Saline 1:1 Immediate Pending Thrombin Time Normal Plasma Pending Stool Occult Blood Negative (NEGATIVE) White Blood Count 14.0 K/UL (4.8-10.8) H Red Blood Count 3.02 M/UL (4.70-6.10) L Hemoglobin 9.3 G/DL (14.2-18.0) L Hematocrit 29.9 % (42.0-52.0) L Mean Corpuscular Volume 99 FL (80-99) Mean Corpuscular Hemoglobin 30.8 PG (27.0-31.0) Mean Corpuscular Hemoglobin Concent 31.2 G/DL (32.0-36.0) L Red Cell Distribution Width 14.0 % (11.6-14.8) Platelet Count 333 K/UL (150-450) Mean Platelet Volume 7.7 FL (6.5-10.1) Neutrophils (%) (Auto) 83.1 % (45.0-75.0) H Lymphocytes (%) (Auto) 9.8 % (20.0-45.0) L Monocytes (%) (Auto) 4.4 % (1.0-10.0) Eosinophils (%) (Auto) 2.3 % (0.0-3.0) Basophils (%) (Auto) 0.4 % (0.0-2.0) Sodium Level 156 mEQ/L (135-145) H Potassium Level 3.7 mEQ/L (3.4-4.9) Chloride Level 117 mEQ/L (98-107) H Carbon Dioxide Level 28 mEQ/L (20-30) Anion Gap 11 (5-15) Blood Urea Nitrogen 50 mg/dL (7-23) H Creatinine 1.8 mg/dL (0.7-1.2) H Estimat Glomerular Filtration Rate mL/min (>60) Glucose Level 175 mg/dL (74-106) H Calcium Level 8.1 mg/dL (8.6-10.2) L Total Bilirubin 0.6 mg/dL (0.0-1.2) Aspartate Amino Transf (AST/SGOT) 35 U/L (5-40) Alanine Aminotransferase (ALT/SGPT) 32 U/L (3-41) Alkaline Phosphatase 145 U/L (40-129) H Total Protein 6.1 g/dL (6.6-8.7) L Albumin 2.0 g/dL (3.5-5.2) L Globulin 4.1 g/dL Albumin/Globulin Ratio 0.4 (1.0-2.7) L Random Vancomycin Level 12.3 ug/mL Objective NECK: No JVD. LUNGS: Coarse rhonchi. CARDIOVASCULAR: Tachycardic S1 and S2 with no murmur. ABDOMEN: Soft. G-tube. EXTREMITIES: 1+ pitting edema. BRYON AC Dec 05, 2016 18:38
--- NOTE | 2016-12-05 18:49 | General Progress Note ---
Assessment/Plan Assessment/Plan ASSESSMENT: 1. Coagulopathy with supertherapeutic INR - remains elevated, mixing study is pending 2. Anemia 2/2 chronic disease, is without major changes, hgb >10 3. Leukocytosis secondary to underlying infection with pancreatitis and elevated lipase. 4. A-fibrillation was on coumadin before - currently off it given bleed 5. r/o gastrointestinal bleed. 6. Dysphagia. 7. Dementia. 8. Hyperglycemia. 9. Sepsis. RECS: 1. Have ordered for PT and PTT mixing study, is pending 2. Does not require iron or epo 3. Anemia w/u reviewed, transfuse as needed 4. Coumadin on hold given Gi bleed 5. Appreciate GI, cards recs 6. Antibiotics on prn basis 7. Discussed with staff. 8. Follow from hematology perspective Thank you, Abdifatah Ramirez MD Subjective Constitutional: Reports: no symptoms HEENT: Reports: no symptoms Cardiovascular: Reports: no symptoms Respiratory: Reports: no symptoms Gastrointestinal/Abdominal: Reports: poor fluid intake Genitourinary: Reports: no symptoms Neurologic/Psychiatric: Reports: no symptoms Endocrine: Reports: no symptoms Hematologic/Lymphatic: Reports: anemia Allergies: Coded Allergies: No Known Allergies (Verified , 12/27/08) Subjective stable, tired, no fevers, no chills, unchanged, remains off coumadin, nonverbal Objective Last 24 Hour Vital Signs Date Time Temp Pulse Resp B/P Pulse Ox O2 Delivery O2 Flow Rate FiO2 12/05/16 16:01 98.2 91 22 118/66 91 Room Air 12/05/16 12:34 97.5 86 22 113/78 97 Simple Mask 15.0 12/05/16 09:52 83 18 Venturi Mask 14.0 55 12/05/16 08:40 97.9 78 22 106/66 97 Simple Mask 15.0 12/05/16 07:59 Venturi Mask 14.0 55 12/05/16 07:58 98 Venturi Mask 14.0 55 12/05/16 03:53 98.2 77 20 102/67 100 Simple Mask 15.0 12/05/16 00:00 98.1 85 22 120/72 97 Simple Mask 15.0 12/04/16 20:38 Venturi Mask 14.0 55 12/04/16 20:38 86 18 Venturi Mask 14.0 55 12/04/16 20:38 96 Venturi Mask 14.0 55 12/04/16 20:00 98.8 80 17 113/58 96 Nasal Cannula 15.0 Intake and Output 12/04/16 12/05/16 19:00 07:00 Intake Total 1320.0 ml 1775.0 ml Output Total 300 ml 1100 ml Balance 1020.0 ml 675.0 ml Intake Free Water 60 ml IV Total 990.0 ml 1240.0 ml Tube Feeding 330 ml 475 ml Output Urine Total 300 ml 1100 ml # Bowel Movements 1 Laboratory Tests 12/04/16 19:40: PT Mixing Study [Pending], Mix PT Incubation Time [Pending], Mix PT Patient/ Normal 1:1 [Pending], PTT Mixing Study [Pending], APTT Patient/Control Mix [ Pending], Mix PTT Incubation Time [Pending], Mix PTT Normal/Saline 1:1 Immediate [Pending], Thrombin Time Normal Plasma [Pending] 12/04/16 20:30: Stool Occult Blood Negative 12/05/16 05:30: White Blood Count 14.0H, Red Blood Count 3.02L, Hemoglobin 9.3L, Hematocrit 29.9L, Mean Corpuscular Volume 99, Mean Corpuscular Hemoglobin 30.8, Mean Corpuscular Hemoglobin Concent 31.2L, Red Cell Distribution Width 14.0, Platelet Count 333, Mean Platelet Volume 7.7, Neutrophils (%) (Auto) 83.1H, Lymphocytes (%) (Auto) 9.8L, Monocytes (%) (Auto) 4.4, Eosinophils (%) (Auto) 2.3, Basophils (%) (Auto) 0.4, Sodium Level 156H, Potassium Level 3.7, Chloride Level 117H, Carbon Dioxide Level 28, Anion Gap 11, Blood Urea Nitrogen 50H, Creatinine 1.8H, Estimat Glomerular Filtration Rate , Glucose Level 175H, Calcium Level 8.1L, Total Bilirubin 0.6, Aspartate Amino Transf (AST/SGOT) 35, Alanine Aminotransferase (ALT/SGPT) 32, Alkaline Phosphatase 145H, Total Protein 6.1L, Albumin 2.0L, Globulin 4.1, Albumin/Globulin Ratio 0.4L, Random Vancomycin Level 12.3 Height (Feet): 5 Height (Inches): 7.00 Weight (Pounds): 221 General Appearance: alert EENT: TMs normal Neck: supple Cardiovascular: normal rate Respiratory/Chest: lungs clear Abdomen: no mass Extremities: non-tender Edema: 1+ Leg (L), 1+ Leg (R) Edema: mild edema Neurologic: alert Skin: warm/dry Abdifatah Ramirez Dec 05, 2016 18:49
[2016-12-05 20:00] VITALS: BP 106/65
--- NOTE | 2016-12-05 22:40 | Pulmonology Progress Note ---
Assessment/Plan Problems: (1) Coffee ground vomiting (2) Coagulopathy (3) Sepsis (4) Acute pancreatitis (5) Limited mobility in bed (6) Feeding by G-tube (7) Choledocholithiasis (8) Dementia Assessment/Plan wbc still high amylase decreasing MRI of abdomen noted continue abx for bacteremia. Heart rate controlled. may go to med/surg. Subjective ROS Limited/Unobtainable: Yes Constitutional: Reports: anorexia, chills, fatigue, fever Respiratory: Reports: productive cough, shortness of breath Gastrointestinal/Abdominal: Reports: bloating, other - hematemesis, vomiting Allergies: Coded Allergies: No Known Allergies (Verified , 12/27/08) Objective Last 24 Hour Vital Signs Date Time Temp Pulse Resp B/P Pulse Ox O2 Delivery O2 Flow Rate FiO2 12/05/16 20:00 99.3 89 22 106/65 99 Room Air 12/05/16 18:52 98.2 12/05/16 18:00 96 Simple Mask 15.0 12/05/16 16:01 98.2 91 22 118/66 91 Room Air 12/05/16 12:34 97.5 86 22 113/78 97 Simple Mask 15.0 12/05/16 09:52 83 18 Venturi Mask 14.0 55 12/05/16 08:40 97.9 78 22 106/66 97 Simple Mask 15.0 12/05/16 07:59 Venturi Mask 14.0 55 12/05/16 07:58 98 Venturi Mask 14.0 55 12/05/16 03:53 98.2 77 20 102/67 100 Simple Mask 15.0 12/05/16 00:00 98.1 85 22 120/72 97 Simple Mask 15.0 Intake and Output 12/04/16 12/05/16 19:00 07:00 Intake Total 1320.0 ml 1775.0 ml Output Total 300 ml 1100 ml Balance 1020.0 ml 675.0 ml Intake Free Water 60 ml IV Total 990.0 ml 1240.0 ml Tube Feeding 330 ml 475 ml Output Urine Total 300 ml 1100 ml # Bowel Movements 1 General Appearance: no acute distress HEENT: normocephalic, atraumatic, PERRL Respiratory/Chest: chest wall non-tender, decreased breath sounds, accessory muscle use Cardiovascular: normal peripheral pulses, normal rate, regular rhythm, no JVD Abdomen: hyperactive bowel sounds, distended, guarding, tender, rebound tenderness Genitourinary: normal external genitalia Extremities: no cyanosis Skin: rash, lesions, ulcers Neurologic/Psychiatric: responsive, abnormal CN, disoriented Laboratory Tests 12/05/16 05:30: White Blood Count 14.0H, Red Blood Count 3.02L, Hemoglobin 9.3L, Hematocrit 29.9L, Mean Corpuscular Volume 99, Mean Corpuscular Hemoglobin 30.8, Mean Corpuscular Hemoglobin Concent 31.2L, Red Cell Distribution Width 14.0, Platelet Count 333, Mean Platelet Volume 7.7, Neutrophils (%) (Auto) 83.1H, Lymphocytes (%) (Auto) 9.8L, Monocytes (%) (Auto) 4.4, Eosinophils (%) (Auto) 2.3, Basophils (%) (Auto) 0.4, Sodium Level 156H, Potassium Level 3.7, Chloride Level 117H, Carbon Dioxide Level 28, Anion Gap 11, Blood Urea Nitrogen 50H, Creatinine 1.8H, Estimat Glomerular Filtration Rate , Glucose Level 175H, Calcium Level 8.1L, Total Bilirubin 0.6, Aspartate Amino Transf (AST/SGOT) 35, Alanine Aminotransferase (ALT/SGPT) 32, Alkaline Phosphatase 145H, Total Protein 6.1L, Albumin 2.0L, Globulin 4.1, Albumin/Globulin Ratio 0.4L, Random Vancomycin Level 12.3 Current Medications Medications (Trade) Dose Ordered Sig/Jamaal Route PRN Reason Start Time Stop Time Status Last Admin Dose Admin Acetaminophen (Tylenol) 650 mg Q4H PRN ORAL Fever>100.5 12/03/16 18:00 01/02/17 17:59 Clonidine HCl (Catapres) 0.1 mg Q8H PRN GT sbp> 160 12/03/16 18:00 01/02/17 17:59 Dextrose (D5W 1000ml) 1,000 ml @ 85 mls/hr [id number] IV 12/03/16 18:30 01/02/17 18:29 12/05/16 18:22 Dextrose (Dextrose 50%) STAT PRN IV Hypoglycemia 12/03/16 18:00 01/02/17 17:59 Insulin Aspart (NovoLOG) EVERY 6 HOURS SUBQ 12/04/16 00:00 01/03/17 00:00 12/05/16 18:29 Insulin Detemir 10 units 10 units Q12HR SUBQ 12/05/16 09:00 01/04/17 08:59 12/05/16 21:27 Lorazepam (Ativan 2mg/ml 1ml) 2 mg Q2H PRN IV agitation 12/03/16 18:00 12/10/16 17:59 Morphine Sulfate (Morphine Sulfate) 4 mg Q4H PRN IVP Severe Pain (Pain Scale 7-10) 12/03/16 18:00 12/10/16 17:59 12/05/16 18:22 Nitroglycerin (Ntg) 0.4 mg Q5M PRN SL Prn Chest Pain 12/03/16 18:00 01/02/17 17:59 Ondansetron HCl (Zofran) 4 mg Q6H PRN IVP Nausea & Vomiting 12/03/16 18:00 01/02/17 17:59 Pantoprazole (Protonix) 40 mg DAILY IVP 12/04/16 09:00 01/03/17 08:59 12/05/16 10:25 Piperacillin Sod/ Tazobactam Sod/ Sodium Chloride (Zosyn/Sodium Chloride) 110 ml @ 27.5 mls/hr Q8HR IVPB 12/04/16 22:00 12/11/16 21:59 12/05/16 21:10 Polyethylene Glycol (Miralax) 17 gm DAILYPRN PRN ORAL Constipation 12/03/16 18:00 01/02/17 17:59 Vancomycin HCl 1 ea 1 ea DAILY PRN MISC Per rx protocol 12/03/16 18:00 01/02/17 17:59 Vancomycin HCl/ Dextrose (Vancomycin/D5W) 325 ml @ 162.5 mls/ hr Q48H IVPB 12/05/16 10:00 12/10/16 09:59 12/05/16 10:24 SONIA ALBERTS Dec 05, 2016 22:40
[2016-12-06] VITALS: BP 98/52
[2016-12-06 04:00] VITALS: BP 102/55
[2016-12-06] MEDS: Piperacillin/Tazobactam 3.375 GM in NS 110 ML IVPB SCH ×3 (04:53→21:13)
[2016-12-06] MEDS: NovoLOG Insulin Flexpen SUBQ SCH ×4 (06:00→16:57)
[2016-12-06 08:00] VITALS: BP 105/66
[2016-12-06] MEDS: Levemir Flexpen SUBQ SCH ×2 (09:54→21:14)
[2016-12-06] MEDS: Pantoprazole Inj IVP SCH (10:05)
--- NOTE | 2016-12-06 10:09 | General Progress Note ---
Progress Note Progress Note Surgery: patient seen and examined at bedside. chart reviewed. no acute events. doing okay. tolerating feeds. exam stable no surgical intervention ccurrently necessary. may consider repeat CT scan soon to evaluate if resolving pancreatitis/duodenitis Ozzie Flynn Dec 06, 2016 10:09
--- NOTE | 2016-12-06 11:03 | General Progress Note ---
Assessment/Plan Problem List: (1) Hyperglycemia ICD Codes: R73.9 - Hyperglycemia, unspecified SNOMED: 05354506 (2) FABIOLA (acute kidney injury) ICD Codes: N17.9 - Acute kidney failure, unspecified SNOMED: 52361737 (3) Choledocholithiasis ICD Codes: K80.50 - Calculus of bile duct without cholangitis or cholecystitis without obstruction SNOMED: 938336737 (4) Pressure ulcer ICD Codes: L89.90 - Pressure ulcer SNOMED: 815910109 (5) Fever ICD Codes: R50.9 - Fever SNOMED: 394808926 (6) Anemia ICD Codes: D64.9 - Anemia SNOMED: 986622847 (7) Cellulitis ICD Codes: L03.90 - Cellulitis SNOMED: 325998529 (8) Seizure disorder ICD Codes: G40.909 - Seizure disorder SNOMED: 243440041 (9) Sepsis ICD Codes: A41.9 - Sepsis, unspecified organism SNOMED: 09514755 Qualifiers: Qualified Codes: A41.9 - Sepsis, unspecified organism (10) Venous stasis ulcers ICD Codes: I83.009 - Venous stasis ulcers SNOMED: 157277780 (11) Bilateral lower extremity edema (12) Dementia ICD Codes: F03.90 - Unspecified dementia without behavioral disturbance SNOMED: 89623237 Qualifiers: Qualified Codes: F01.50 - Vascular dementia without behavioral disturbance (13) Coffee ground vomiting ICD Codes: K92.0 - Hematemesis SNOMED: 08626920 (14) Leukocytosis ICD Codes: D72.829 - Elevated white blood cell count, unspecified SNOMED: 038197701, 308666909 (15) UTI (urinary tract infection) ICD Codes: N39.0 - Urinary tract infection, site not specified SNOMED: 45552959 Status: progressing Assessment/Plan leukocytosis abx per id sepsis a fib h/o cva no bleeding on coumadin abx per id Subjective ROS Limited/Unobtainable: Yes Constitutional: Reports: no symptoms Allergies: Coded Allergies: No Known Allergies (Verified , 12/27/08) Objective Last 24 Hour Vital Signs Date Time Temp Pulse Resp B/P Pulse Ox O2 Delivery O2 Flow Rate FiO2 12/06/16 08:00 98.2 84 28 105/66 100 Venturi Mask 12/06/16 04:00 97.9 79 20 102/55 100 Simple Mask 12/06/16 00:00 98.0 85 22 98/52 100 12/05/16 20:00 Venturi Mask 14.0 55 12/05/16 20:00 97 Venturi Mask 14.0 55 12/05/16 20:00 88 20 Venturi Mask 14.0 55 12/05/16 20:00 99.3 89 22 106/65 99 Room Air 12/05/16 18:52 98.2 12/05/16 18:00 96 Simple Mask 15.0 12/05/16 16:01 98.2 91 22 118/66 91 Room Air 12/05/16 12:34 97.5 86 22 113/78 97 Simple Mask 15.0 Intake and Output 12/05/16 12/06/16 19:00 07:00 Intake Total 1610.0 ml 1837.5 ml Output Total 520 ml 475 ml Balance 1090.0 ml 1362.5 ml Intake Free Water 100 ml 160 ml IV Total 960.0 ml 1017.5 ml Tube Feeding 550 ml 660 ml Output Urine Total 520 ml 475 ml # Bowel Movements 1 Height (Feet): 5 Height (Inches): 7.00 Weight (Pounds): 221 EENT: PERRL/EOMI Neck: supple Cardiovascular: normal rate Respiratory/Chest: chest wall non-tender Abdomen: soft Aliza Faria MD Dec 06, 2016 11:03
[2016-12-06 12:00] VITALS: BP 113/66
--- NOTE | 2016-12-06 12:41 | General Progress Note ---
Assessment/Plan Problem List: (1) Gallstone pancreatitis ICD Codes: K85.10 - Biliary acute pancreatitis without necrosis or infection SNOMED: 83229430 (2) Dementia ICD Codes: F03.90 - Unspecified dementia without behavioral disturbance SNOMED: 50440491 Qualifiers: Qualified Codes: F01.50 - Vascular dementia without behavioral disturbance (3) Gastrojejunostomy tube dislodgement (4) DKA, type 1 ICD Codes: E10.10 - Type 1 diabetes mellitus with ketoacidosis without coma SNOMED: 14684324, 546232566 (5) Feeding by G-tube ICD Codes: Z93.1 - Feeding by G-tube SNOMED: 337933904 (6) Anemia ICD Codes: D64.9 - Anemia SNOMED: 606068761 Assessment/Plan improving labs MRCP no CBD stone ? passed CBD stone GTF fu INR fu lfts repeat stool ob Subjective ROS Limited/Unobtainable: No Allergies: Coded Allergies: No Known Allergies (Verified , 12/27/08) Subjective no event Objective Last 24 Hour Vital Signs Date Time Temp Pulse Resp B/P Pulse Ox O2 Delivery O2 Flow Rate FiO2 12/06/16 08:00 98.2 84 28 105/66 100 Venturi Mask 12/06/16 04:00 97.9 79 20 102/55 100 Simple Mask 12/06/16 00:00 98.0 85 22 98/52 100 12/05/16 20:00 Venturi Mask 14.0 55 12/05/16 20:00 97 Venturi Mask 14.0 55 12/05/16 20:00 88 20 Venturi Mask 14.0 55 12/05/16 20:00 99.3 89 22 106/65 99 Room Air 12/05/16 18:52 98.2 12/05/16 18:00 96 Simple Mask 15.0 12/05/16 16:01 98.2 91 22 118/66 91 Room Air Intake and Output 12/05/16 12/06/16 19:00 07:00 Intake Total 1610.0 ml 1837.5 ml Output Total 520 ml 475 ml Balance 1090.0 ml 1362.5 ml Intake Free Water 100 ml 160 ml IV Total 960.0 ml 1017.5 ml Tube Feeding 550 ml 660 ml Output Urine Total 520 ml 475 ml # Bowel Movements 1 Height (Feet): 5 Height (Inches): 7.00 Weight (Pounds): 221 General Appearance: no apparent distress EENT: normal ENT inspection Neck: supple Cardiovascular: normal rate Respiratory/Chest: decreased breath sounds Abdomen: soft, hypoactive bowel sounds, distended Extremities: non-tender FLOYD MARIANO Dec 06, 2016 12:41
--- NOTE | 2016-12-06 13:05 | Wound Nurse Progress Note ---
Wound RN Progress Note Wound Consult skin reassessed , no change in condition noted wound sites, continue current wound care as previously ordered. JO ABBOTT Dec 06, 2016 13:05
--- NOTE | 2016-12-06 13:12 | General Progress Note ---
Progress Note Progress Note Bioethics Committee We were asked to meet by social work with consent of attending physician re code status and further aggressive care. The patient has no POLST or advance directive. He was at one time under the auspices of the public guardian but in 2008 the conservayorship was discontinued. He has chronic encephalopathy, dementia, contractures and pressure sores. Obtunded and on respiratory treatment with ventimask at high O2. The Committee was in agreement that further aggressive care dominick be futile in restoring meaningful quality of life. No code and supportive measures only would be appropriate. Sarina Read MD, Chair, Bioethics Committee SARINA READ Dec 06, 2016 13:12
--- NOTE | 2016-12-06 14:56 | General Progress Note ---
Assessment/Plan Assessment/Plan ASSESSMENT: 1. Coagulopathy with supertherapeutic INR - remains elevated, mixing study is pending 2. Anemia 2/2 chronic disease, is without major changes, hgb >10 3. Leukocytosis secondary to underlying infection with pancreatitis and elevated lipase. 4. A-fibrillation was on coumadin before - currently off it given bleed 5. r/o gastrointestinal bleed. 6. Dysphagia. 7. Dementia. 8. Hyperglycemia. 9. Sepsis. RECS: 1. Bioethics note reviewed, supportive care 2. Review PT and PTT mixing study, is pending 3. Anemia w/u reviewed, transfuse as needed 4. Coumadin on hold given Gi bleed 5. Appreciate GI, pulm, cards recs 6. Antibiotics on prn basis 7. Discussed with staff. 8. Follow from hematology perspective Thank you, Abdifatah Ramirez MD Subjective Constitutional: Reports: no symptoms HEENT: Reports: no symptoms Cardiovascular: Reports: no symptoms Respiratory: Reports: no symptoms Gastrointestinal/Abdominal: Reports: poor appetite Genitourinary: Reports: no symptoms Neurologic/Psychiatric: Reports: no symptoms Endocrine: Reports: no symptoms Hematologic/Lymphatic: Reports: anemia Allergies: Coded Allergies: No Known Allergies (Verified , 12/27/08) Subjective stable, tired, no fevers, no chills, is nonverbal, seen by bioethics committee today and note reviewed Objective Last 24 Hour Vital Signs Date Time Temp Pulse Resp B/P Pulse Ox O2 Delivery O2 Flow Rate FiO2 12/06/16 14:13 24 12/06/16 12:00 97.0 84 30 113/66 100 Venturi Mask 12/06/16 08:00 98.2 84 28 105/66 100 Venturi Mask 12/06/16 04:00 97.9 79 20 102/55 100 Simple Mask 12/06/16 00:00 98.0 85 22 98/52 100 12/05/16 20:00 Venturi Mask 14.0 55 12/05/16 20:00 97 Venturi Mask 14.0 55 12/05/16 20:00 88 20 Venturi Mask 14.0 55 12/05/16 20:00 99.3 89 22 106/65 99 Room Air 12/05/16 18:52 98.2 12/05/16 18:00 96 Simple Mask 15.0 12/05/16 16:01 98.2 91 22 118/66 91 Room Air Intake and Output 12/05/16 12/06/16 19:00 07:00 Intake Total 1610.0 ml 1837.5 ml Output Total 520 ml 475 ml Balance 1090.0 ml 1362.5 ml Intake Free Water 100 ml 160 ml IV Total 960.0 ml 1017.5 ml Tube Feeding 550 ml 660 ml Output Urine Total 520 ml 475 ml # Bowel Movements 1 Height (Feet): 5 Height (Inches): 7.00 Weight (Pounds): 221 General Appearance: no apparent distress EENT: normal ENT inspection Neck: supple Cardiovascular: regular rhythm Respiratory/Chest: no respiratory distress Abdomen: no organomegaly Extremities: non-tender Edema: no edema noted Leg (L), no edema noted Leg (R) Edema: mild edema Skin: warm/dry Abdifatah Ramirez Dec 06, 2016 14:56
[2016-12-06 16:00] VITALS: BP 117/70
--- NOTE | 2016-12-06 16:24 | Infectious Diseases Prog Note ---
Assessment/Plan Problems: (1) HCAP (healthcare-associated pneumonia) Assessment & Plan: improved on vancomycin and zosyn, already recieved 9 days of vancomycin, will D/C today , continue to monitor CXR, sputum culture showed no growth , pulmonary is following (2) UTI (urinary tract infection) Assessment & Plan: on zosyn, no urine culture was done (3) Sepsis Assessment & Plan: with coag negative staph which is most likely contaminant , and Citrobacter diversus which is real , source most likely GI or tract . already on zosyn , repeated blood culture is negative so far on 11/30/16 which confirm clearance, will treat with antibiotics for two weeks starting from the clearance date . EOT 12/14/16 (4) FABIOLA (acute kidney injury) Assessment & Plan: due to sepsis, continue hydration, avoid nephrotoxic meds (5) Acute pancreatitis Assessment & Plan: complicated with intraabdominal phlegmon , will continue wide spectrum antibiotics therapy, may need ERCP for source control to relief CBD if really obstructed. (6) Cellulitis of abdominal wall Assessment & Plan: due to G tube, S/P removal, already on wide spectrum antibiotics therapy, continue G tube care as needed (7) Gastrojejunostomy tube dislodgement Assessment & Plan: S/P replacement by GI , continue local care Subjective ROS Limited/Unobtainable: Yes Allergies: Coded Allergies: No Known Allergies (Verified , 12/27/08) Subjective he is comfortable, on Ventimask with high flow oxygen , doesn't follow commands . nonverbal, not in distress, afebrile. Objective Vital Signs Last 24 Hour Vital Signs Date Time Temp Pulse Resp B/P Pulse Ox O2 Delivery O2 Flow Rate FiO2 12/06/16 14:13 24 12/06/16 12:00 97.0 84 30 113/66 100 Venturi Mask 12/06/16 08:00 98.2 84 28 105/66 100 Venturi Mask 12/06/16 04:00 97.9 79 20 102/55 100 Simple Mask 12/06/16 00:00 98.0 85 22 98/52 100 12/05/16 20:00 Venturi Mask 14.0 55 12/05/16 20:00 97 Venturi Mask 14.0 55 12/05/16 20:00 88 20 Venturi Mask 14.0 55 12/05/16 20:00 99.3 89 22 106/65 99 Room Air 12/05/16 18:52 98.2 12/05/16 18:00 96 Simple Mask 15.0 Height (Feet): 5 Height (Inches): 7.00 Weight (Pounds): 221 General Appearance: WD/WN, no acute distress HEENT: normocephalic, atraumatic, anicteric Respiratory/Chest: chest wall non-tender, no respiratory distress, no accessory muscle use, decreased breath sounds, crackles/rales Cardiovascular: normal peripheral pulses, normal rate, regular rhythm, no gallop/murmur Abdomen: normal bowel sounds, soft, non tender, no organomegaly, non distended , no mass, other - G tube site looks clean with lymphatic drainage Extremities: no cyanosis, no clubbing Skin: no rash, no lesions Current Medications Medications (Trade) Dose Ordered Sig/Jamaal Route PRN Reason Start Time Stop Time Status Last Admin Dose Admin Acetaminophen (Tylenol) 650 mg Q4H PRN ORAL Fever>100.5 12/03/16 18:00 01/02/17 17:59 Clonidine HCl (Catapres) 0.1 mg Q8H PRN GT sbp> 160 12/03/16 18:00 01/02/17 17:59 Dextrose (D5W 1000ml) 1,000 ml @ 85 mls/hr [id number] IV 12/03/16 18:30 01/02/17 18:29 12/06/16 06:00 Dextrose (Dextrose 50%) STAT PRN IV Hypoglycemia 12/03/16 18:00 01/02/17 17:59 Insulin Aspart (NovoLOG) EVERY 6 HOURS SUBQ 12/04/16 00:00 01/03/17 00:00 12/06/16 12:38 Insulin Detemir (Levemir) 10 units Q12HR SUBQ 12/05/16 09:00 01/04/17 08:59 12/06/16 09:54 Lorazepam (Ativan 2mg/ml 1ml) 2 mg Q2H PRN IV agitation 12/03/16 18:00 12/10/16 17:59 Morphine Sulfate (Morphine Sulfate) 4 mg Q4H PRN IVP Severe Pain (Pain Scale 7-10) 12/03/16 18:00 12/10/16 17:59 12/05/16 18:22 Nitroglycerin (Ntg) 0.4 mg Q5M PRN SL Prn Chest Pain 12/03/16 18:00 01/02/17 17:59 Ondansetron HCl (Zofran) 4 mg Q6H PRN IVP Nausea & Vomiting 12/03/16 18:00 01/02/17 17:59 Pantoprazole (Protonix) 40 mg DAILY IVP 12/04/16 09:00 01/03/17 08:59 12/06/16 10:05 Piperacillin Sod/ Tazobactam Sod/ Sodium Chloride (Zosyn/Sodium Chloride) 110 ml @ 27.5 mls/hr Q8HR IVPB 12/04/16 22:00 12/11/16 21:59 12/06/16 14:00 Polyethylene Glycol 17 gm 17 gm DAILYPRN PRN ORAL Constipation 12/03/16 18:00 01/02/17 17:59 Ariana Acevedo M.D. Dec 06, 2016 16:24
--- NOTE | 2016-12-06 16:52 | Cardiac Electrophysiology PN ---
Assessment/Plan Assessment/Plan 1. Sinus tachycardia due to sepsis and dehydration. Improved 2. Paroxysmal atrial fibrillation.Off Coumadin for GI bleed. Off of any AV teodora jacinto. Echo EF 40% 3. Sepsis. On broad-spectrum antibiotic 4. Status post PEG 5. Hypernatremia and azotemia secondary to dehydration.On iv fluids 6. Coffee-ground emesis. F/U per Dr. Wilson. 7. Billiary Pancreatitis.MRCP no CBD stone? passed CBD stone DW RN Subjective Subjective Nonverbal.No event overnight.pending placement. Objective Last 24 Hour Vital Signs Date Time Temp Pulse Resp B/P Pulse Ox O2 Delivery O2 Flow Rate FiO2 12/06/16 16:00 100.0 87 20 117/70 97 Simple Mask 15.0 12/06/16 14:13 24 12/06/16 12:00 97.0 84 30 113/66 100 Venturi Mask 12/06/16 08:00 98.2 84 28 105/66 100 Venturi Mask 12/06/16 04:00 97.9 79 20 102/55 100 Simple Mask 12/06/16 00:00 98.0 85 22 98/52 100 12/05/16 20:00 Venturi Mask 14.0 55 12/05/16 20:00 97 Venturi Mask 14.0 55 12/05/16 20:00 88 20 Venturi Mask 14.0 55 12/05/16 20:00 99.3 89 22 106/65 99 Room Air 12/05/16 18:52 98.2 12/05/16 18:00 96 Simple Mask 15.0 Intake and Output 12/05/16 12/06/16 19:00 07:00 Intake Total 1610.0 ml 1837.5 ml Output Total 520 ml 475 ml Balance 1090.0 ml 1362.5 ml Intake Free Water 100 ml 160 ml IV Total 960.0 ml 1017.5 ml Tube Feeding 550 ml 660 ml Output Urine Total 520 ml 475 ml # Bowel Movements 1 Current Medications Medications (Trade) Dose Ordered Sig/Jamaal Route PRN Reason Start Time Stop Time Status Last Admin Dose Admin Acetaminophen (Tylenol) 650 mg Q4H PRN ORAL Fever>100.5 12/03/16 18:00 01/02/17 17:59 Clonidine HCl (Catapres) 0.1 mg Q8H PRN GT sbp> 160 12/03/16 18:00 01/02/17 17:59 Dextrose (D5W 1000ml) 1,000 ml @ 85 mls/hr [id number] IV 12/03/16 18:30 01/02/17 18:29 12/06/16 06:00 Dextrose (Dextrose 50%) STAT PRN IV Hypoglycemia 12/03/16 18:00 01/02/17 17:59 Insulin Aspart (NovoLOG) EVERY 6 HOURS SUBQ 12/04/16 00:00 01/03/17 00:00 12/06/16 12:38 Insulin Detemir (Levemir) 10 units Q12HR SUBQ 12/05/16 09:00 01/04/17 08:59 12/06/16 09:54 Lorazepam (Ativan 2mg/ml 1ml) 2 mg Q2H PRN IV agitation 12/03/16 18:00 12/10/16 17:59 Morphine Sulfate (Morphine Sulfate) 4 mg Q4H PRN IVP Severe Pain (Pain Scale 7-10) 12/03/16 18:00 12/10/16 17:59 12/05/16 18:22 Nitroglycerin (Ntg) 0.4 mg Q5M PRN SL Prn Chest Pain 12/03/16 18:00 01/02/17 17:59 Ondansetron HCl (Zofran) 4 mg Q6H PRN IVP Nausea & Vomiting 12/03/16 18:00 01/02/17 17:59 Pantoprazole (Protonix) 40 mg DAILY IVP 12/04/16 09:00 01/03/17 08:59 12/06/16 10:05 Piperacillin Sod/ Tazobactam Sod/ Sodium Chloride (Zosyn/Sodium Chloride) 110 ml @ 27.5 mls/hr Q8HR IVPB 12/04/16 22:00 12/11/16 21:59 12/06/16 14:00 Polyethylene Glycol 17 gm 17 gm DAILYPRN PRN ORAL Constipation 12/03/16 18:00 01/02/17 17:59 Objective NECK: No JVD. LUNGS: Coarse rhonchi. CARDIOVASCULAR: Tachycardic S1 and S2 with no murmur. ABDOMEN: Soft. G-tube. EXTREMITIES: 1+ pitting edema. BRYON AC Dec 06, 2016 16:52
[2016-12-06] MEDS: Morphine Sulfate 4mg/ml Inj IVP PRN ×2 (16:55→21:13)
--- NOTE | 2016-12-06 17:26 | General Progress Note ---
Assessment/Plan Status: stable Assessment/Plan Acute renal failure due to sepsis , low BP , GI bleed Sepsis Hyperglycemia Choledocholithiasis Aspiration into lower respiratory tract coagulopathy 2 to anticoagulation use hx of At fib hx of CVA seizure disorder pressure ulcer dysphagia, G tube HTN elevated LFTs, declining Plan: No labs today- Hydrate- D5 Stop Depakote, high LFTs, check level Avoid Nephrotoxics Monitor renal parameters and H&h Urine studies stop Norvasc and cardura for low bp Per orders Subjective ROS Limited/Unobtainable: No Allergies: Coded Allergies: No Known Allergies (Verified , 12/27/08) Objective Last 24 Hour Vital Signs Date Time Temp Pulse Resp B/P Pulse Ox O2 Delivery O2 Flow Rate FiO2 12/06/16 16:00 100.0 87 20 117/70 97 Simple Mask 15.0 12/06/16 14:13 24 12/06/16 12:00 97.0 84 30 113/66 100 Venturi Mask 12/06/16 08:00 98.2 84 28 105/66 100 Venturi Mask 12/06/16 04:00 97.9 79 20 102/55 100 Simple Mask 12/06/16 00:00 98.0 85 22 98/52 100 12/05/16 20:00 Venturi Mask 14.0 55 12/05/16 20:00 97 Venturi Mask 14.0 55 12/05/16 20:00 88 20 Venturi Mask 14.0 55 12/05/16 20:00 99.3 89 22 106/65 99 Room Air 12/05/16 18:52 98.2 12/05/16 18:00 96 Simple Mask 15.0 Intake and Output 12/05/16 12/06/16 19:00 07:00 Intake Total 1610.0 ml 1837.5 ml Output Total 520 ml 475 ml Balance 1090.0 ml 1362.5 ml Intake Free Water 100 ml 160 ml IV Total 960.0 ml 1017.5 ml Tube Feeding 550 ml 660 ml Output Urine Total 520 ml 475 ml # Bowel Movements 1 Height (Feet): 5 Height (Inches): 7.00 Weight (Pounds): 221 General Appearance: no apparent distress Cardiovascular: normal rate Respiratory/Chest: decreased breath sounds Abdomen: distended Objective other physical exam not changed ALONDRA FLUTON Dec 06, 2016 17:26
[2016-12-06 20:00] VITALS: BP 120/71
--- NOTE | 2016-12-06 23:47 | Pulmonology Progress Note ---
Assessment/Plan Problems: (1) Coffee ground vomiting (2) Coagulopathy (3) Sepsis (4) Acute pancreatitis (5) Limited mobility in bed (6) Feeding by G-tube (7) Choledocholithiasis (8) Dementia Assessment/Plan wbc still high amylase decreasing MRI of abdomen noted continue abx for bacteremia. Heart rate controlled. may go to med/surg. Subjective ROS Limited/Unobtainable: Yes Constitutional: Reports: anorexia, fatigue Gastrointestinal/Abdominal: Reports: nausea, vomiting Neurologic: Reports: confusion, weakness Allergies: Coded Allergies: No Known Allergies (Verified , 12/27/08) Objective Last 24 Hour Vital Signs Date Time Temp Pulse Resp B/P Pulse Ox O2 Delivery O2 Flow Rate FiO2 12/06/16 21:43 98.8 12/06/16 20:42 97 Venturi Mask 14.0 55 12/06/16 20:00 98.8 88 22 120/71 97 Simple Mask 15.0 12/06/16 16:00 100.0 87 20 117/70 97 Simple Mask 15.0 12/06/16 14:13 24 12/06/16 12:00 97.0 84 30 113/66 100 Venturi Mask 12/06/16 08:00 98.2 84 28 105/66 100 Venturi Mask 12/06/16 04:00 97.9 79 20 102/55 100 Simple Mask 12/06/16 00:00 98.0 85 22 98/52 100 Intake and Output 12/05/16 12/06/16 19:00 07:00 Intake Total 1610.0 ml 1837.5 ml Output Total 520 ml 475 ml Balance 1090.0 ml 1362.5 ml Intake Free Water 100 ml 160 ml IV Total 960.0 ml 1017.5 ml Tube Feeding 550 ml 660 ml Output Urine Total 520 ml 475 ml # Bowel Movements 1 General Appearance: no acute distress HEENT: normocephalic, atraumatic, PERRL Respiratory/Chest: chest wall non-tender, decreased breath sounds, accessory muscle use Cardiovascular: normal peripheral pulses, normal rate, regular rhythm, no JVD Abdomen: normal bowel sounds, soft, non tender, no organomegaly Genitourinary: normal external genitalia Extremities: no cyanosis Skin: rash, lesions, ulcers Neurologic/Psychiatric: disoriented, unresponsiveness Current Medications Medications (Trade) Dose Ordered Sig/Jamaal Route PRN Reason Start Time Stop Time Status Last Admin Dose Admin Acetaminophen (Tylenol) 650 mg Q4H PRN ORAL Fever>100.5 12/03/16 18:00 01/02/17 17:59 Clonidine HCl (Catapres) 0.1 mg Q8H PRN GT sbp> 160 12/03/16 18:00 01/02/17 17:59 Dextrose (D5W 1000ml) 1,000 ml @ 85 mls/hr [id number] IV 12/03/16 18:30 01/02/17 18:29 12/06/16 16:55 Dextrose (Dextrose 50%) STAT PRN IV Hypoglycemia 12/03/16 18:00 01/02/17 17:59 Insulin Aspart (NovoLOG) EVERY 6 HOURS SUBQ 12/04/16 00:00 01/03/17 00:00 12/06/16 16:57 Insulin Detemir (Levemir) 10 units Q12HR SUBQ 12/05/16 09:00 01/04/17 08:59 12/06/16 21:14 Lorazepam (Ativan 2mg/ml 1ml) 2 mg Q2H PRN IV agitation 12/03/16 18:00 12/10/16 17:59 Morphine Sulfate (Morphine Sulfate) 4 mg Q4H PRN IVP Severe Pain (Pain Scale 7-10) 12/03/16 18:00 12/10/16 17:59 12/06/16 21:13 Nitroglycerin (Ntg) 0.4 mg Q5M PRN SL Prn Chest Pain 12/03/16 18:00 01/02/17 17:59 Ondansetron HCl (Zofran) 4 mg Q6H PRN IVP Nausea & Vomiting 12/03/16 18:00 01/02/17 17:59 Pantoprazole (Protonix) 40 mg DAILY IVP 12/04/16 09:00 01/03/17 08:59 12/06/16 10:05 Piperacillin Sod/ Tazobactam Sod/ Sodium Chloride (Zosyn/Sodium Chloride) 110 ml @ 27.5 mls/hr Q8HR IVPB 12/04/16 22:00 12/11/16 21:59 12/06/16 21:13 Polyethylene Glycol 17 gm 17 gm DAILYPRN PRN ORAL Constipation 12/03/16 18:00 01/02/17 17:59 SONIA ALBERTS Dec 06, 2016 23:47
[2016-12-07] VITALS: BP 105/63
[2016-12-07] MEDS: NovoLOG Insulin Flexpen SUBQ SCH ×4 (00:14→17:50)
[2016-12-07 04:00] VITALS: BP 97/63
[2016-12-07] MEDS: Piperacillin/Tazobactam 3.375 GM in NS 110 ML IVPB SCH ×3 (04:55→22:17)
[2016-12-07 07:30] LABS: BASOPHILS % (AUTO) 0.4 % (0.0-2.0); EOSINOPHILS % (AUTO) 2.9 % (0.0-3.0); LYMPHOCYTES % (AUTO) 17.5 % (20.0-45.0); MEAN CORPUSCULAR HEMOGLOBIN 30.6 PG (27.0-31.0); MEAN CORPUSCULAR HGB CONC 30.7 G/DL (32.0-36.0); MEAN CORPUSCULAR VOLUME 100 FL (80-99); MEAN PLATELET VOLUME 7.6 FL (6.5-10.1); MONOCYTES % (AUTO) 4.7 % (1.0-10.0); NEUTROPHILS % (AUTO) 74.4 % (45.0-75.0); PLATELET COUNT 349 K/UL (150-450); RED BLOOD COUNT 2.95 M/UL (4.70-6.10); RED CELL DISTRIBUTION WIDTH 14.3 % (11.6-14.8); WHITE BLOOD COUNT 12.2 K/UL (4.8-10.8)
[2016-12-07 07:49] LABS: ALANINE AMINOTRANSFERASE 24 U/L (3-41); ALBUMIN/GLOBULIN RATIO 0.5 (1.0-2.7); ANION GAP 12 (5-15); ASPARTATE AMINO TRANSFERASE 24 U/L (5-40); CALCIUM 8.3 mg/dL (8.6-10.2); CARBON DIOXIDE 29 mEQ/L (20-30); CHLORIDE 108 mEQ/L (98-107); CREATININE 1.8 mg/dL (0.7-1.2); HEMOLYSIS 1; MAGNESIUM 2.3 mg/dL (1.7-2.5); PHOSPHORUS 3.1 mg/dL (2.5-4.8); POTASSIUM 4.1 mEQ/L (3.4-4.9); SODIUM 149 mEQ/L (135-145); URIC ACID 3.6 mg/dL (3.0-7.5)
[2016-12-07 08:00] VITALS: BP 101/57
[2016-12-07] MEDS: Pantoprazole Inj IVP SCH (08:50)
[2016-12-07] MEDS: Levemir Flexpen SUBQ SCH ×2 (08:52→22:23)
--- NOTE | 2016-12-07 09:17 | General Progress Note ---
Progress Note Progress Note Afebrile. Pt is awake, non communicative. He is tolerating tube feedings. Abdomen is distended. CBC and BMP are stable. There is no need for surgical intervention at this point. We should consider a repeat CT of the abdomen to rule out a pancreatic phlegmon or pseudocyst. Judah Madison MD Dec 07, 2016 09:17
[2016-12-07 10:40] LABS: 1HR INCUBATION PT 1:1NP 11.5 sec (9.6-11.5); PROTHROMBIN TIME MIXING STUDY 25.5 sec (9.6-11.5); PT 1:1NP 11.7 sec (9.6-11.5)
--- NOTE | 2016-12-07 11:45 | General Progress Note ---
Assessment/Plan Problem List: (1) Gallstone pancreatitis ICD Codes: K85.10 - Biliary acute pancreatitis without necrosis or infection SNOMED: 64585243 (2) Dementia ICD Codes: F03.90 - Unspecified dementia without behavioral disturbance SNOMED: 25474045 Qualifiers: Qualified Codes: F01.50 - Vascular dementia without behavioral disturbance (3) Gastrojejunostomy tube dislodgement (4) DKA, type 1 ICD Codes: E10.10 - Type 1 diabetes mellitus with ketoacidosis without coma SNOMED: 01528813, 569944280 (5) Feeding by G-tube ICD Codes: Z93.1 - Feeding by G-tube SNOMED: 512807162 (6) Anemia ICD Codes: D64.9 - Anemia SNOMED: 395393404 Assessment/Plan improving labs MRCP no CBD stone ? passed CBD stone GTF fu INR fu lfts repeat stool ob Subjective ROS Limited/Unobtainable: No Allergies: Coded Allergies: No Known Allergies (Verified , 12/27/08) Subjective no event Objective Last 24 Hour Vital Signs Date Time Temp Pulse Resp B/P Pulse Ox O2 Delivery O2 Flow Rate FiO2 12/07/16 08:00 97.5 81 28 101/57 99 Venturi Mask 12/07/16 04:00 97.5 76 21 97/63 100 Simple Mask 15.0 12/07/16 00:00 97.7 81 21 105/63 97 Non-Rebreather 15.0 12/06/16 21:43 98.8 12/06/16 20:42 Venturi Mask 14.0 55 12/06/16 20:42 97 Venturi Mask 14.0 55 12/06/16 20:00 98.8 88 22 120/71 97 Simple Mask 15.0 12/06/16 16:00 100.0 87 20 117/70 97 Simple Mask 15.0 12/06/16 14:13 24 12/06/16 12:00 97.0 84 30 113/66 100 Venturi Mask Intake and Output 12/06/16 12/07/16 19:00 07:00 Intake Total 1940.0 ml 2025.0 ml Output Total 850 ml 930 ml Balance 1090.0 ml 1095.0 ml Intake Free Water 100 ml 200 ml IV Total 1185.0 ml 1165.0 ml Tube Feeding 605 ml 660 ml Blood Product 50 ml Output Urine Total 850 ml 930 ml # Bowel Movements 1 Laboratory Tests 12/07/16 05:20: White Blood Count 12.2H, Red Blood Count 2.95L, Hemoglobin 9.0L, Hematocrit 29.4L, Mean Corpuscular Volume 100H, Mean Corpuscular Hemoglobin 30.6, Mean Corpuscular Hemoglobin Concent 30.7L, Red Cell Distribution Width 14.3, Platelet Count 349, Mean Platelet Volume 7.6, Neutrophils (%) (Auto) 74.4, Lymphocytes (%) (Auto) 17.5L, Monocytes (%) (Auto) 4.7, Eosinophils (%) (Auto) 2.9, Basophils (%) (Auto) 0.4, Sodium Level 149H, Potassium Level 4.1, Chloride Level 108H, Carbon Dioxide Level 29, Anion Gap 12, Blood Urea Nitrogen 37H, Creatinine 1.8H, Estimat Glomerular Filtration Rate , Glucose Level 137H, Uric Acid 3.6, Calcium Level 8.3L, Phosphorus Level 3.1, Magnesium Level 2.3, Total Bilirubin 0.5, Aspartate Amino Transf (AST/SGOT) 24, Alanine Aminotransferase ( ALT/SGPT) 24, Alkaline Phosphatase 116, C-Reactive Protein, Quantitative 10.0H, Pro-B-Type Natriuretic Peptide 1126H, Total Protein 6.0L, Albumin 2.1L, Globulin 3.9, Albumin/Globulin Ratio 0.5L Height (Feet): 5 Height (Inches): 7.00 Weight (Pounds): 221 General Appearance: no apparent distress EENT: normal ENT inspection Neck: supple Cardiovascular: normal rate Respiratory/Chest: decreased breath sounds Abdomen: normal bowel sounds, non tender, soft Extremities: non-tender FLOYD MARIANO Dec 07, 2016 11:45
[2016-12-07 12:00] VITALS: BP 110/61
--- NOTE | 2016-12-07 14:50 | General Progress Note ---
Assessment/Plan Problem List: (1) Hyperglycemia ICD Codes: R73.9 - Hyperglycemia, unspecified SNOMED: 39280139 (2) FABIOLA (acute kidney injury) ICD Codes: N17.9 - Acute kidney failure, unspecified SNOMED: 22401301 (3) Choledocholithiasis ICD Codes: K80.50 - Calculus of bile duct without cholangitis or cholecystitis without obstruction SNOMED: 493986089 (4) Pressure ulcer ICD Codes: L89.90 - Pressure ulcer SNOMED: 679524369 (5) Fever ICD Codes: R50.9 - Fever SNOMED: 299880382 (6) Anemia ICD Codes: D64.9 - Anemia SNOMED: 265718576 (7) Cellulitis ICD Codes: L03.90 - Cellulitis SNOMED: 204787366 (8) Seizure disorder ICD Codes: G40.909 - Seizure disorder SNOMED: 156071549 (9) Sepsis ICD Codes: A41.9 - Sepsis, unspecified organism SNOMED: 25448575 Qualifiers: Qualified Codes: A41.9 - Sepsis, unspecified organism (10) Venous stasis ulcers ICD Codes: I83.009 - Venous stasis ulcers SNOMED: 913509055 (11) Bilateral lower extremity edema (12) Dementia ICD Codes: F03.90 - Unspecified dementia without behavioral disturbance SNOMED: 89372100 Qualifiers: Qualified Codes: F01.50 - Vascular dementia without behavioral disturbance (13) Coffee ground vomiting ICD Codes: K92.0 - Hematemesis SNOMED: 88497288 (14) Leukocytosis ICD Codes: D72.829 - Elevated white blood cell count, unspecified SNOMED: 088934864, 462550102 (15) UTI (urinary tract infection) ICD Codes: N39.0 - Urinary tract infection, site not specified SNOMED: 24433932 Status: progressing Assessment/Plan leukocytosis abx per id sepsis a fib h/o cva clinically improving afebrile no active bleeding Subjective ROS Limited/Unobtainable: Yes Constitutional: Reports: no symptoms Allergies: Coded Allergies: No Known Allergies (Verified , 12/27/08) Objective Last 24 Hour Vital Signs Date Time Temp Pulse Resp B/P Pulse Ox O2 Delivery O2 Flow Rate FiO2 12/07/16 12:00 97.7 84 18 110/61 97 Room Air 12/07/16 08:00 97.5 81 28 101/57 99 Venturi Mask 12/07/16 04:00 97.5 76 21 97/63 100 Simple Mask 15.0 12/07/16 00:00 97.7 81 21 105/63 97 Non-Rebreather 15.0 12/06/16 21:43 98.8 12/06/16 20:42 Venturi Mask 14.0 55 12/06/16 20:42 97 Venturi Mask 14.0 55 12/06/16 20:00 98.8 88 22 120/71 97 Simple Mask 15.0 12/06/16 16:00 100.0 87 20 117/70 97 Simple Mask 15.0 Intake and Output 12/06/16 12/07/16 19:00 07:00 Intake Total 1940.0 ml 2025.0 ml Output Total 850 ml 930 ml Balance 1090.0 ml 1095.0 ml Intake Free Water 100 ml 200 ml IV Total 1185.0 ml 1165.0 ml Tube Feeding 605 ml 660 ml Blood Product 50 ml Output Urine Total 850 ml 930 ml # Bowel Movements 1 Laboratory Tests 12/07/16 05:20: White Blood Count 12.2H, Red Blood Count 2.95L, Hemoglobin 9.0L, Hematocrit 29.4L, Mean Corpuscular Volume 100H, Mean Corpuscular Hemoglobin 30.6, Mean Corpuscular Hemoglobin Concent 30.7L, Red Cell Distribution Width 14.3, Platelet Count 349, Mean Platelet Volume 7.6, Neutrophils (%) (Auto) 74.4, Lymphocytes (%) (Auto) 17.5L, Monocytes (%) (Auto) 4.7, Eosinophils (%) (Auto) 2.9, Basophils (%) (Auto) 0.4, Sodium Level 149H, Potassium Level 4.1, Chloride Level 108H, Carbon Dioxide Level 29, Anion Gap 12, Blood Urea Nitrogen 37H, Creatinine 1.8H, Estimat Glomerular Filtration Rate , Glucose Level 137H, Uric Acid 3.6, Calcium Level 8.3L, Phosphorus Level 3.1, Magnesium Level 2.3, Total Bilirubin 0.5, Aspartate Amino Transf (AST/SGOT) 24, Alanine Aminotransferase ( ALT/SGPT) 24, Alkaline Phosphatase 116, C-Reactive Protein, Quantitative 10.0H, Pro-B-Type Natriuretic Peptide 1126H, Total Protein 6.0L, Albumin 2.1L, Globulin 3.9, Albumin/Globulin Ratio 0.5L Height (Feet): 5 Height (Inches): 7.00 Weight (Pounds): 221 EENT: PERRL/EOMI Neck: supple Cardiovascular: normal rate Respiratory/Chest: lungs clear Abdomen: soft Aliza Faria MD Dec 07, 2016 14:50
--- NOTE | 2016-12-07 15:18 | Infectious Diseases Prog Note ---
Assessment/Plan Problems: (1) HCAP (healthcare-associated pneumonia) Assessment & Plan: improved on vancomycin and zosyn, recieved 9 days of vancomycin, and zosyn. will continue zosyn only for now for sepsis and intraabdominal phlegmon treatment, continue to monitor CXR, sputum culture showed no growth , pulmonary is following (2) UTI (urinary tract infection) Assessment & Plan: on zosyn, no urine culture was done (3) Sepsis Assessment & Plan: with Citrobacter diversus which is real , source most likely GI or tract . on zosyn , repeated blood culture is negative so far on 11/30/16 which confirm clearance, will treat with antibiotics for two weeks starting from the clearance date . EOT 12/14/16 (4) FABIOLA (acute kidney injury) Assessment & Plan: due to sepsis, continue hydration, avoid nephrotoxic meds (5) Acute pancreatitis Assessment & Plan: complicated with intraabdominal phlegmon , will continue wide spectrum antibiotics therapy, may need ERCP for source control to relief CBD if really obstructed. (6) Cellulitis of abdominal wall Assessment & Plan: due to G tube, S/P removal, already on wide spectrum antibiotics therapy, continue G tube care as needed (7) Gastrojejunostomy tube dislodgement Assessment & Plan: S/P replacement by GI , continue local care Subjective ROS Limited/Unobtainable: Yes Allergies: Coded Allergies: No Known Allergies (Verified , 12/27/08) Subjective he is comfortable, nonverbal , breathing well on room air , doesn't follow commands , not in distress, afebrile. Objective Vital Signs Last 24 Hour Vital Signs Date Time Temp Pulse Resp B/P Pulse Ox O2 Delivery O2 Flow Rate FiO2 12/07/16 12:00 97.7 84 18 110/61 97 Room Air 12/07/16 08:00 97.5 81 28 101/57 99 Venturi Mask 12/07/16 04:00 97.5 76 21 97/63 100 Simple Mask 15.0 12/07/16 00:00 97.7 81 21 105/63 97 Non-Rebreather 15.0 12/06/16 21:43 98.8 12/06/16 20:42 Venturi Mask 14.0 55 12/06/16 20:42 97 Venturi Mask 14.0 55 12/06/16 20:00 98.8 88 22 120/71 97 Simple Mask 15.0 12/06/16 16:00 100.0 87 20 117/70 97 Simple Mask 15.0 Height (Feet): 5 Height (Inches): 7.00 Weight (Pounds): 221 General Appearance: WD/WN, no acute distress HEENT: normocephalic, atraumatic, anicteric, mucous membranes moist, PERRL Respiratory/Chest: chest wall non-tender, lungs clear, normal breath sounds, no respiratory distress, no accessory muscle use Cardiovascular: normal peripheral pulses, normal rate, regular rhythm, no gallop/murmur, no JVD Abdomen: normal bowel sounds, no organomegaly, no mass, no scars, distended Extremities: no cyanosis, no clubbing Skin: no rash, no lesions Laboratory Tests Test 12/07/16 05:20 White Blood Count 12.2 K/UL (4.8-10.8) H Red Blood Count 2.95 M/UL (4.70-6.10) L Hemoglobin 9.0 G/DL (14.2-18.0) L Hematocrit 29.4 % (42.0-52.0) L Mean Corpuscular Volume 100 FL (80-99) H Mean Corpuscular Hemoglobin 30.6 PG (27.0-31.0) Mean Corpuscular Hemoglobin Concent 30.7 G/DL (32.0-36.0) L Red Cell Distribution Width 14.3 % (11.6-14.8) Platelet Count 349 K/UL (150-450) Mean Platelet Volume 7.6 FL (6.5-10.1) Neutrophils (%) (Auto) 74.4 % (45.0-75.0) Lymphocytes (%) (Auto) 17.5 % (20.0-45.0) L Monocytes (%) (Auto) 4.7 % (1.0-10.0) Eosinophils (%) (Auto) 2.9 % (0.0-3.0) Basophils (%) (Auto) 0.4 % (0.0-2.0) Sodium Level 149 mEQ/L (135-145) H Potassium Level 4.1 mEQ/L (3.4-4.9) Chloride Level 108 mEQ/L (98-107) H Carbon Dioxide Level 29 mEQ/L (20-30) Anion Gap 12 (5-15) Blood Urea Nitrogen 37 mg/dL (7-23) H Creatinine 1.8 mg/dL (0.7-1.2) H Estimat Glomerular Filtration Rate mL/min (>60) Glucose Level 137 mg/dL (74-106) H Uric Acid 3.6 mg/dL (3.0-7.5) Calcium Level 8.3 mg/dL (8.6-10.2) L Phosphorus Level 3.1 mg/dL (2.5-4.8) Magnesium Level 2.3 mg/dL (1.7-2.5) Total Bilirubin 0.5 mg/dL (0.0-1.2) Aspartate Amino Transf (AST/SGOT) 24 U/L (5-40) Alanine Aminotransferase (ALT/SGPT) 24 U/L (3-41) Alkaline Phosphatase 116 U/L (40-129) C-Reactive Protein, Quantitative 10.0 mg/dL (< 0.5) H Pro-B-Type Natriuretic Peptide 1126 pg/mL (0-450) H Total Protein 6.0 g/dL (6.6-8.7) L Albumin 2.1 g/dL (3.5-5.2) L Globulin 3.9 g/dL Albumin/Globulin Ratio 0.5 (1.0-2.7) L Current Medications Medications (Trade) Dose Ordered Sig/Jamaal Route PRN Reason Start Time Stop Time Status Last Admin Dose Admin Acetaminophen (Tylenol) 650 mg Q4H PRN ORAL Fever>100.5 12/03/16 18:00 01/02/17 17:59 Clonidine HCl (Catapres) 0.1 mg Q8H PRN GT sbp> 160 12/03/16 18:00 01/02/17 17:59 Dextrose (D5W 1000ml) 1,000 ml @ 85 mls/hr [id number] IV 12/03/16 18:30 01/02/17 18:29 12/07/16 03:42 Dextrose (Dextrose 50%) STAT PRN IV Hypoglycemia 12/03/16 18:00 01/02/17 17:59 Insulin Aspart (NovoLOG) EVERY 6 HOURS SUBQ 12/04/16 00:00 01/03/17 00:00 12/07/16 12:32 Insulin Detemir (Levemir) 10 units Q12HR SUBQ 12/05/16 09:00 01/04/17 08:59 12/07/16 08:52 Lorazepam (Ativan 2mg/ml 1ml) 2 mg Q2H PRN IV agitation 12/03/16 18:00 12/10/16 17:59 Morphine Sulfate (Morphine Sulfate) 4 mg Q4H PRN IVP Severe Pain (Pain Scale 7-10) 12/03/16 18:00 12/10/16 17:59 12/06/16 21:13 Nitroglycerin (Ntg) 0.4 mg Q5M PRN SL Prn Chest Pain 12/03/16 18:00 01/02/17 17:59 Ondansetron HCl (Zofran) 4 mg Q6H PRN IVP Nausea & Vomiting 12/03/16 18:00 01/02/17 17:59 Pantoprazole (Protonix) 40 mg DAILY IVP 12/04/16 09:00 01/03/17 08:59 12/07/16 08:50 Piperacillin Sod/ Tazobactam Sod/ Sodium Chloride (Zosyn/Sodium Chloride) 110 ml @ 27.5 mls/hr Q8HR IVPB 12/04/16 22:00 12/11/16 21:59 12/07/16 14:32 Polyethylene Glycol 17 gm 17 gm DAILYPRN PRN ORAL Constipation 12/03/16 18:00 01/02/17 17:59 Ariana Acevedo M.D. Dec 07, 2016 15:18
--- NOTE | 2016-12-07 15:53 | General Progress Note ---
Assessment/Plan Status: stable - from renal stand, unchanged Status Narrative Cr stable 1.8 Assessment/Plan Acute renal failure due to sepsis , low BP , GI bleed Sepsis Hyperglycemia Choledocholithiasis Aspiration into lower respiratory tract coagulopathy 2 to anticoagulation use hx of At fib hx of CVA seizure disorder pressure ulcer dysphagia, G tube HTN elevated LFTs, declining Plan: Hydrate- D5 Stop Depakote, high LFTs, check level Avoid Nephrotoxics Monitor renal parameters and H&h Urine studies stop Norvasc and cardura for low bp Per orders Subjective ROS Limited/Unobtainable: Yes Allergies: Coded Allergies: No Known Allergies (Verified , 12/27/08) Objective Last 24 Hour Vital Signs Date Time Temp Pulse Resp B/P Pulse Ox O2 Delivery O2 Flow Rate FiO2 12/07/16 12:00 97.7 84 18 110/61 97 Room Air 12/07/16 08:00 97.5 81 28 101/57 99 Venturi Mask 12/07/16 04:00 97.5 76 21 97/63 100 Simple Mask 15.0 12/07/16 00:00 97.7 81 21 105/63 97 Non-Rebreather 15.0 12/06/16 21:43 98.8 12/06/16 20:42 Venturi Mask 14.0 55 12/06/16 20:42 97 Venturi Mask 14.0 55 12/06/16 20:00 98.8 88 22 120/71 97 Simple Mask 15.0 12/06/16 16:00 100.0 87 20 117/70 97 Simple Mask 15.0 Intake and Output 12/06/16 12/07/16 19:00 07:00 Intake Total 1940.0 ml 2025.0 ml Output Total 850 ml 930 ml Balance 1090.0 ml 1095.0 ml Intake Free Water 100 ml 200 ml IV Total 1185.0 ml 1165.0 ml Tube Feeding 605 ml 660 ml Blood Product 50 ml Output Urine Total 850 ml 930 ml # Bowel Movements 1 Laboratory Tests 12/07/16 05:20: White Blood Count 12.2H, Red Blood Count 2.95L, Hemoglobin 9.0L, Hematocrit 29.4L, Mean Corpuscular Volume 100H, Mean Corpuscular Hemoglobin 30.6, Mean Corpuscular Hemoglobin Concent 30.7L, Red Cell Distribution Width 14.3, Platelet Count 349, Mean Platelet Volume 7.6, Neutrophils (%) (Auto) 74.4, Lymphocytes (%) (Auto) 17.5L, Monocytes (%) (Auto) 4.7, Eosinophils (%) (Auto) 2.9, Basophils (%) (Auto) 0.4, Sodium Level 149H, Potassium Level 4.1, Chloride Level 108H, Carbon Dioxide Level 29, Anion Gap 12, Blood Urea Nitrogen 37H, Creatinine 1.8H, Estimat Glomerular Filtration Rate , Glucose Level 137H, Uric Acid 3.6, Calcium Level 8.3L, Phosphorus Level 3.1, Magnesium Level 2.3, Total Bilirubin 0.5, Aspartate Amino Transf (AST/SGOT) 24, Alanine Aminotransferase ( ALT/SGPT) 24, Alkaline Phosphatase 116, C-Reactive Protein, Quantitative 10.0H, Pro-B-Type Natriuretic Peptide 1126H, Total Protein 6.0L, Albumin 2.1L, Globulin 3.9, Albumin/Globulin Ratio 0.5L Height (Feet): 5 Height (Inches): 7.00 Weight (Pounds): 221 General Appearance: no apparent distress Objective other physical exam not changed ALONDRA FULTON Dec 07, 2016 15:53
[2016-12-07 16:00] VITALS: BP 125/76
--- NOTE | 2016-12-07 16:10 | Cardiac Electrophysiology PN ---
Assessment/Plan Assessment/Plan 1. Sinus tachycardia due to sepsis and dehydration. Improved 2. Paroxysmal atrial fibrillation.Off Coumadin for GI bleed. Off of any AV teodora jacinto. Echo EF 40% 3. Sepsis. On broad-spectrum antibiotic 4. Status post PEG 5. Hypernatremia and azotemia secondary to dehydration.On iv fluids 6. Coffee-ground emesis. F/U per Dr. Wilson. 7. Billiary Pancreatitis.MRCP no CBD stone? passed CBD stone 8. Bio Ethics consult pending regarding DNR/DNI DW RN Subjective Subjective Nonverbal in NAD.No event overnight.RN at bedside. Objective Last 24 Hour Vital Signs Date Time Temp Pulse Resp B/P Pulse Ox O2 Delivery O2 Flow Rate FiO2 12/07/16 12:00 97.7 84 18 110/61 97 Room Air 12/07/16 08:00 97.5 81 28 101/57 99 Venturi Mask 12/07/16 04:00 97.5 76 21 97/63 100 Simple Mask 15.0 12/07/16 00:00 97.7 81 21 105/63 97 Non-Rebreather 15.0 12/06/16 21:43 98.8 12/06/16 20:42 Venturi Mask 14.0 55 12/06/16 20:42 97 Venturi Mask 14.0 55 12/06/16 20:00 98.8 88 22 120/71 97 Simple Mask 15.0 Intake and Output 12/06/16 12/07/16 19:00 07:00 Intake Total 1940.0 ml 2025.0 ml Output Total 850 ml 930 ml Balance 1090.0 ml 1095.0 ml Intake Free Water 100 ml 200 ml IV Total 1185.0 ml 1165.0 ml Tube Feeding 605 ml 660 ml Blood Product 50 ml Output Urine Total 850 ml 930 ml # Bowel Movements 1 Laboratory Tests Test 12/07/16 05:20 White Blood Count 12.2 K/UL (4.8-10.8) H Red Blood Count 2.95 M/UL (4.70-6.10) L Hemoglobin 9.0 G/DL (14.2-18.0) L Hematocrit 29.4 % (42.0-52.0) L Mean Corpuscular Volume 100 FL (80-99) H Mean Corpuscular Hemoglobin 30.6 PG (27.0-31.0) Mean Corpuscular Hemoglobin Concent 30.7 G/DL (32.0-36.0) L Red Cell Distribution Width 14.3 % (11.6-14.8) Platelet Count 349 K/UL (150-450) Mean Platelet Volume 7.6 FL (6.5-10.1) Neutrophils (%) (Auto) 74.4 % (45.0-75.0) Lymphocytes (%) (Auto) 17.5 % (20.0-45.0) L Monocytes (%) (Auto) 4.7 % (1.0-10.0) Eosinophils (%) (Auto) 2.9 % (0.0-3.0) Basophils (%) (Auto) 0.4 % (0.0-2.0) Sodium Level 149 mEQ/L (135-145) H Potassium Level 4.1 mEQ/L (3.4-4.9) Chloride Level 108 mEQ/L (98-107) H Carbon Dioxide Level 29 mEQ/L (20-30) Anion Gap 12 (5-15) Blood Urea Nitrogen 37 mg/dL (7-23) H Creatinine 1.8 mg/dL (0.7-1.2) H Estimat Glomerular Filtration Rate mL/min (>60) Glucose Level 137 mg/dL (74-106) H Uric Acid 3.6 mg/dL (3.0-7.5) Calcium Level 8.3 mg/dL (8.6-10.2) L Phosphorus Level 3.1 mg/dL (2.5-4.8) Magnesium Level 2.3 mg/dL (1.7-2.5) Total Bilirubin 0.5 mg/dL (0.0-1.2) Aspartate Amino Transf (AST/SGOT) 24 U/L (5-40) Alanine Aminotransferase (ALT/SGPT) 24 U/L (3-41) Alkaline Phosphatase 116 U/L (40-129) C-Reactive Protein, Quantitative 10.0 mg/dL (< 0.5) H Pro-B-Type Natriuretic Peptide 1126 pg/mL (0-450) H Total Protein 6.0 g/dL (6.6-8.7) L Albumin 2.1 g/dL (3.5-5.2) L Globulin 3.9 g/dL Albumin/Globulin Ratio 0.5 (1.0-2.7) L Objective NECK: No JVD. LUNGS: Coarse rhonchi. CARDIOVASCULAR: Nl S1 and S2 with no murmur. ABDOMEN: Soft. G-tube. EXTREMITIES: 1+ pitting edema. BRYON AC Dec 07, 2016 16:10
[2016-12-07] MEDS: Morphine Sulfate 4mg/ml Inj IVP PRN (17:47)
[2016-12-07 20:00] VITALS: BP 110/66
--- NOTE | 2016-12-07 20:22 | General Progress Note ---
Assessment/Plan Assessment/Plan ASSESSMENT: 1. Coagulopathy with supertherapeutic INR - remains elevated, mixing study correct indicating factor deficiency, sepsis 2. Anemia 2/2 chronic disease, is without major changes, hgb >10 3. Leukocytosis secondary to underlying infection with pancreatitis and elevated lipase. 4. A-fibrillation was on coumadin before - currently off it given bleed 5. r/o gastrointestinal bleed. 6. Dysphagia. 7. Dementia. 8. Hyperglycemia. 9. Sepsis. RECS: 1. Monitor counts 2. Monitor coagulopathy 3. Anemia w/u reviewed, transfuse as needed 4. Coumadin on hold given Gi bleed 5. Appreciate GI, pulm, cards recs 6. Antibiotics on prn basis 7. Discussed with staff. 8. Follow from hematology perspective Thank you, Abdifatah Ramirez MD Subjective Constitutional: Reports: no symptoms HEENT: Reports: no symptoms Cardiovascular: Reports: no symptoms Respiratory: Reports: no symptoms Gastrointestinal/Abdominal: Reports: poor appetite Genitourinary: Reports: no symptoms Neurologic/Psychiatric: Reports: no symptoms Endocrine: Reports: no symptoms Hematologic/Lymphatic: Reports: anemia Allergies: Coded Allergies: No Known Allergies (Verified , 12/27/08) Subjective stable, tired, no fevers, no chills, is nonverbal Objective Last 24 Hour Vital Signs Date Time Temp Pulse Resp B/P Pulse Ox O2 Delivery O2 Flow Rate FiO2 12/07/16 18:17 98.6 12/07/16 16:00 98.6 91 22 125/76 98 Room Air 12/07/16 12:00 97.7 84 18 110/61 97 Room Air 12/07/16 08:00 97.5 81 28 101/57 99 Venturi Mask 12/07/16 06:57 Venturi Mask 14.0 55 12/07/16 06:54 96 Venturi Mask 14.0 55 12/07/16 04:00 97.5 76 21 97/63 100 Simple Mask 15.0 12/07/16 00:00 97.7 81 21 105/63 97 Non-Rebreather 15.0 12/06/16 20:42 Venturi Mask 14.0 55 12/06/16 20:42 97 Venturi Mask 14.0 55 Intake and Output 12/06/16 12/07/16 19:00 07:00 Intake Total 1940.0 ml 2025.0 ml Output Total 850 ml 930 ml Balance 1090.0 ml 1095.0 ml Intake Free Water 100 ml 200 ml IV Total 1185.0 ml 1165.0 ml Tube Feeding 605 ml 660 ml Blood Product 50 ml Output Urine Total 850 ml 930 ml # Bowel Movements 1 Laboratory Tests 12/07/16 05:20: White Blood Count 12.2H, Red Blood Count 2.95L, Hemoglobin 9.0L, Hematocrit 29.4L, Mean Corpuscular Volume 100H, Mean Corpuscular Hemoglobin 30.6, Mean Corpuscular Hemoglobin Concent 30.7L, Red Cell Distribution Width 14.3, Platelet Count 349, Mean Platelet Volume 7.6, Neutrophils (%) (Auto) 74.4, Lymphocytes (%) (Auto) 17.5L, Monocytes (%) (Auto) 4.7, Eosinophils (%) (Auto) 2.9, Basophils (%) (Auto) 0.4, Sodium Level 149H, Potassium Level 4.1, Chloride Level 108H, Carbon Dioxide Level 29, Anion Gap 12, Blood Urea Nitrogen 37H, Creatinine 1.8H, Estimat Glomerular Filtration Rate , Glucose Level 137H, Uric Acid 3.6, Calcium Level 8.3L, Phosphorus Level 3.1, Magnesium Level 2.3, Total Bilirubin 0.5, Aspartate Amino Transf (AST/SGOT) 24, Alanine Aminotransferase ( ALT/SGPT) 24, Alkaline Phosphatase 116, C-Reactive Protein, Quantitative 10.0H, Pro-B-Type Natriuretic Peptide 1126H, Total Protein 6.0L, Albumin 2.1L, Globulin 3.9, Albumin/Globulin Ratio 0.5L Height (Feet): 5 Height (Inches): 7.00 Weight (Pounds): 221 General Appearance: no apparent distress EENT: TMs normal Neck: normal alignment Cardiovascular: regular rhythm Respiratory/Chest: normal breath sounds Abdomen: non tender Genitourinary/Rectal: normal rectal exam Extremities: non-tender Edema: 1+ Leg (L), 1+ Leg (R) Edema: mild edema Neurologic: alert Skin: normal pigmentation Abdifatah Ramirez Dec 07, 2016 20:22
--- NOTE | 2016-12-07 23:00 | Pulmonology Progress Note ---
Assessment/Plan Problems: (1) Coffee ground vomiting (2) Coagulopathy (3) Sepsis (4) Acute pancreatitis (5) Limited mobility in bed (6) Feeding by G-tube (7) Choledocholithiasis (8) Dementia Assessment/Plan wbc still high amylase decreasing MRI of abdomen noted continue abx for bacteremia. Heart rate controlled. may go to med/surg. Subjective ROS Limited/Unobtainable: No Constitutional: Reports: anorexia, fatigue Musculoskeletal: Reports: pain, swelling Allergies: Coded Allergies: No Known Allergies (Verified , 12/27/08) Objective Last 24 Hour Vital Signs Date Time Temp Pulse Resp B/P Pulse Ox O2 Delivery O2 Flow Rate FiO2 12/07/16 20:34 Venturi Mask 14.0 55 12/07/16 20:34 99 Venturi Mask 14.0 55 12/07/16 20:00 99.0 89 18 110/66 100 Room Air 12/07/16 18:17 98.6 12/07/16 16:00 98.6 91 22 125/76 98 Room Air 12/07/16 12:00 97.7 84 18 110/61 97 Room Air 12/07/16 08:00 97.5 81 28 101/57 99 Venturi Mask 12/07/16 06:57 Venturi Mask 14.0 55 12/07/16 06:54 96 Venturi Mask 14.0 55 12/07/16 04:00 97.5 76 21 97/63 100 Simple Mask 15.0 12/07/16 00:00 97.7 81 21 105/63 97 Non-Rebreather 15.0 Intake and Output 12/06/16 12/07/16 19:00 07:00 Intake Total 1940.0 ml 2025.0 ml Output Total 850 ml 930 ml Balance 1090.0 ml 1095.0 ml Intake Free Water 100 ml 200 ml IV Total 1185.0 ml 1165.0 ml Tube Feeding 605 ml 660 ml Blood Product 50 ml Output Urine Total 850 ml 930 ml # Bowel Movements 1 General Appearance: no acute distress HEENT: normocephalic, atraumatic, anicteric, PERRL Respiratory/Chest: chest wall non-tender, decreased breath sounds, accessory muscle use Cardiovascular: normal peripheral pulses, normal rate, regular rhythm, no JVD Abdomen: absent bowel sounds, distended, guarding, tender, rebound tenderness Genitourinary: normal external genitalia Extremities: no cyanosis Skin: rash, lesions Neurologic/Psychiatric: ergonomics consultant II-XII grossly normal, no motor/sensory deficits Laboratory Tests 12/07/16 05:20: White Blood Count 12.2H, Red Blood Count 2.95L, Hemoglobin 9.0L, Hematocrit 29.4L, Mean Corpuscular Volume 100H, Mean Corpuscular Hemoglobin 30.6, Mean Corpuscular Hemoglobin Concent 30.7L, Red Cell Distribution Width 14.3, Platelet Count 349, Mean Platelet Volume 7.6, Neutrophils (%) (Auto) 74.4, Lymphocytes (%) (Auto) 17.5L, Monocytes (%) (Auto) 4.7, Eosinophils (%) (Auto) 2.9, Basophils (%) (Auto) 0.4, Sodium Level 149H, Potassium Level 4.1, Chloride Level 108H, Carbon Dioxide Level 29, Anion Gap 12, Blood Urea Nitrogen 37H, Creatinine 1.8H, Estimat Glomerular Filtration Rate , Glucose Level 137H, Uric Acid 3.6, Calcium Level 8.3L, Phosphorus Level 3.1, Magnesium Level 2.3, Total Bilirubin 0.5, Aspartate Amino Transf (AST/SGOT) 24, Alanine Aminotransferase ( ALT/SGPT) 24, Alkaline Phosphatase 116, C-Reactive Protein, Quantitative 10.0H, Pro-B-Type Natriuretic Peptide 1126H, Total Protein 6.0L, Albumin 2.1L, Globulin 3.9, Albumin/Globulin Ratio 0.5L Current Medications Medications (Trade) Dose Ordered Sig/Jamaal Route PRN Reason Start Time Stop Time Status Last Admin Dose Admin Acetaminophen (Tylenol) 650 mg Q4H PRN ORAL Fever>100.5 12/03/16 18:00 01/02/17 17:59 Clonidine HCl (Catapres) 0.1 mg Q8H PRN GT sbp> 160 12/03/16 18:00 01/02/17 17:59 Dextrose (D5W 1000ml) 1,000 ml @ 85 mls/hr [id number] IV 12/03/16 18:30 01/02/17 18:29 12/07/16 17:47 Dextrose (Dextrose 50%) STAT PRN IV Hypoglycemia 12/03/16 18:00 01/02/17 17:59 Insulin Aspart (NovoLOG) EVERY 6 HOURS SUBQ 12/04/16 00:00 01/03/17 00:00 12/07/16 17:50 Insulin Detemir (Levemir) 10 units Q12HR SUBQ 12/05/16 09:00 01/04/17 08:59 12/07/16 22:23 Lorazepam (Ativan 2mg/ml 1ml) 2 mg Q2H PRN IV agitation 12/03/16 18:00 12/10/16 17:59 Morphine Sulfate (Morphine Sulfate) 4 mg Q4H PRN IVP Severe Pain (Pain Scale 7-10) 12/03/16 18:00 12/10/16 17:59 12/07/16 17:47 Nitroglycerin (Ntg) 0.4 mg Q5M PRN SL Prn Chest Pain 12/03/16 18:00 01/02/17 17:59 Ondansetron HCl (Zofran) 4 mg Q6H PRN IVP Nausea & Vomiting 12/03/16 18:00 01/02/17 17:59 Pantoprazole (Protonix) 40 mg DAILY IVP 12/04/16 09:00 01/03/17 08:59 12/07/16 08:50 Piperacillin Sod/ Tazobactam Sod/ Sodium Chloride (Zosyn/Sodium Chloride) 110 ml @ 27.5 mls/hr Q8HR IVPB 12/04/16 22:00 12/11/16 21:59 12/07/16 22:17 Polyethylene Glycol 17 gm 17 gm DAILYPRN PRN ORAL Constipation 12/03/16 18:00 01/02/17 17:59 SONIA ALBERTS Dec 07, 2016 23:00
[2016-12-08] VITALS: BP 127/82
[2016-12-08] MEDS: NovoLOG Insulin Flexpen SUBQ SCH ×4 (00:30→17:51)
[2016-12-08 04:00] VITALS: BP 107/62
[2016-12-08] MEDS: Piperacillin/Tazobactam 3.375 GM in NS 110 ML IVPB SCH ×3 (06:45→21:03)
[2016-12-08 08:00] VITALS: BP 106/65
[2016-12-08] MEDS: Levemir Flexpen SUBQ SCH ×2 (09:09→20:12)
[2016-12-08] MEDS: Pantoprazole Inj IVP SCH (09:33)
--- NOTE | 2016-12-08 10:09 | General Progress Note ---
Assessment/Plan Problem List: (1) Hyperglycemia ICD Codes: R73.9 - Hyperglycemia, unspecified SNOMED: 75093926 (2) FABIOLA (acute kidney injury) ICD Codes: N17.9 - Acute kidney failure, unspecified SNOMED: 20804947 (3) Coagulopathy ICD Codes: D68.9 - Coagulopathy SNOMED: 49441088 (4) Acute pancreatitis ICD Codes: K85.90 - Acute pancreatitis without necrosis or infection, unspecified SNOMED: 475757888 Qualifiers: Qualified Codes: K85.10 - Biliary acute pancreatitis without necrosis or infection Assessment/Plan increase Levemir 10 to 12 units bid continue Novolog sliding scale as is Subjective ROS Limited/Unobtainable: Yes Allergies: Coded Allergies: No Known Allergies (Verified , 12/27/08) Subjective events noted - on O2 mask - on TF Objective Last 24 Hour Vital Signs Date Time Temp Pulse Resp B/P Pulse Ox O2 Delivery O2 Flow Rate FiO2 12/08/16 08:00 96.6 83 20 106/65 99 Non-Rebreather 15.0 12/08/16 04:00 97.9 80 18 107/62 100 Non-Rebreather 15.0 12/08/16 00:00 98.1 96 18 127/82 95 Non-Rebreather 15.0 12/07/16 20:34 Venturi Mask 14.0 55 12/07/16 20:34 99 Venturi Mask 14.0 55 12/07/16 20:00 99.0 89 18 110/66 100 Room Air 12/07/16 18:17 98.6 12/07/16 16:00 98.6 91 22 125/76 98 Room Air 12/07/16 12:00 97.7 84 18 110/61 97 Room Air Intake and Output 12/07/16 12/08/16 19:00 07:00 Intake Total 1795.0 ml 1805.0 ml Output Total 400 ml 1200 ml Balance 1395.0 ml 605.0 ml Intake Free Water 200 ml 100 ml IV Total 990.0 ml 1045.0 ml Tube Feeding 605 ml 660 ml Output Urine Total 400 ml 1200 ml # Bowel Movements 1 Height (Feet): 5 Height (Inches): 7.00 Weight (Pounds): 221 General Appearance: lethargic Neck: normal alignment Respiratory/Chest: decreased breath sounds Abdomen: normal bowel sounds Edema: 1+ Arm (L), 1+ Arm (R), 1+ Leg (L), 1+ Leg (R), 1+ Pedal (L), 1+ Pedal ( R), 1+ Generalized Objective Current Medications Medications (Trade) Dose Ordered Sig/Jamaal Route PRN Reason Start Time Stop Time Status Last Admin Dose Admin Acetaminophen (Tylenol) 650 mg Q4H PRN ORAL Fever>100.5 12/03/16 18:00 01/02/17 17:59 Clonidine HCl (Catapres) 0.1 mg Q8H PRN GT sbp> 160 12/03/16 18:00 01/02/17 17:59 Dextrose (D5W 1000ml) 1,000 ml @ 85 mls/hr [id number] IV 12/03/16 18:30 01/02/17 18:29 12/08/16 05:30 Dextrose (Dextrose 50%) STAT PRN IV Hypoglycemia 12/03/16 18:00 01/02/17 17:59 Insulin Aspart (NovoLOG) EVERY 6 HOURS SUBQ 12/04/16 00:00 01/03/17 00:00 12/08/16 05:58 Insulin Detemir (Levemir) 10 units Q12HR SUBQ 12/05/16 09:00 01/04/17 08:59 12/08/16 09:09 Lorazepam (Ativan 2mg/ml 1ml) 2 mg Q2H PRN IV agitation 12/03/16 18:00 12/10/16 17:59 Morphine Sulfate (Morphine Sulfate) 4 mg Q4H PRN IVP Severe Pain (Pain Scale 7-10) 12/03/16 18:00 12/10/16 17:59 12/07/16 17:47 Nitroglycerin (Ntg) 0.4 mg Q5M PRN SL Prn Chest Pain 12/03/16 18:00 01/02/17 17:59 Ondansetron HCl (Zofran) 4 mg Q6H PRN IVP Nausea & Vomiting 12/03/16 18:00 01/02/17 17:59 Pantoprazole (Protonix) 40 mg DAILY IVP 12/04/16 09:00 01/03/17 08:59 12/08/16 09:33 Piperacillin Sod/ Tazobactam Sod/ Sodium Chloride (Zosyn/Sodium Chloride) 110 ml @ 27.5 mls/hr Q8HR IVPB 12/04/16 22:00 12/11/16 21:59 12/08/16 06:45 Polyethylene Glycol 17 gm 17 gm DAILYPRN PRN ORAL Constipation 12/03/16 18:00 01/02/17 17:59 Item Value Date Time Bedside Blood Glucose 233 mg/dl H 12/08/16 0909 Bedside Blood Glucose 233 mg/dl H 12/08/16 0558 Bedside Blood Glucose 104 mg/dl 12/08/16 0030 Bedside Blood Glucose 206 mg/dl H 12/07/16 2223 Bedside Blood Glucose 164 mg/dl H 12/07/16 1800 Bedside Blood Glucose 208 mg/dl H 12/07/16 1232 SUZIE FELDER 25, 2017 10:08
[2016-12-08 11:11] LABS: BASOPHILS % (AUTO) 0.7 % (0.0-2.0); EOSINOPHILS % (AUTO) 2.8 % (0.0-3.0); LYMPHOCYTES % (AUTO) 13.9 % (20.0-45.0); MEAN CORPUSCULAR HEMOGLOBIN 30.5 PG (27.0-31.0); MEAN CORPUSCULAR HGB CONC 31.1 G/DL (32.0-36.0); MEAN CORPUSCULAR VOLUME 98 FL (80-99); MONOCYTES % (AUTO) 5.4 % (1.0-10.0); NEUTROPHILS % (AUTO) 77.2 % (45.0-75.0); PLATELET COUNT 333 K/UL (150-450); RED BLOOD COUNT 3.09 M/UL (4.70-6.10); RED CELL DISTRIBUTION WIDTH 14.1 % (11.6-14.8); WHITE BLOOD COUNT 10.8 K/UL (4.8-10.8)
[2016-12-08 12:00] VITALS: BP 108/59
--- NOTE | 2016-12-08 12:00 | General Progress Note ---
Assessment/Plan Problem List: (1) Hyperglycemia ICD Codes: R73.9 - Hyperglycemia, unspecified SNOMED: 63091713 (2) FABIOLA (acute kidney injury) ICD Codes: N17.9 - Acute kidney failure, unspecified SNOMED: 27593544 (3) Choledocholithiasis ICD Codes: K80.50 - Calculus of bile duct without cholangitis or cholecystitis without obstruction SNOMED: 984055967 (4) Pressure ulcer ICD Codes: L89.90 - Pressure ulcer SNOMED: 970308699 (5) Fever ICD Codes: R50.9 - Fever SNOMED: 821242954 (6) Anemia ICD Codes: D64.9 - Anemia SNOMED: 197887314 (7) Cellulitis ICD Codes: L03.90 - Cellulitis SNOMED: 835052708 (8) Seizure disorder ICD Codes: G40.909 - Seizure disorder SNOMED: 889215746 (9) Sepsis ICD Codes: A41.9 - Sepsis, unspecified organism SNOMED: 54936010 Qualifiers: Qualified Codes: A41.9 - Sepsis, unspecified organism (10) Venous stasis ulcers ICD Codes: I83.009 - Venous stasis ulcers SNOMED: 601148053 (11) Bilateral lower extremity edema (12) Dementia ICD Codes: F03.90 - Unspecified dementia without behavioral disturbance SNOMED: 17107152 Qualifiers: Qualified Codes: F01.50 - Vascular dementia without behavioral disturbance (13) Coffee ground vomiting ICD Codes: K92.0 - Hematemesis SNOMED: 44105305 (14) Leukocytosis ICD Codes: D72.829 - Elevated white blood cell count, unspecified SNOMED: 037313192, 792074875 (15) UTI (urinary tract infection) ICD Codes: N39.0 - Urinary tract infection, site not specified SNOMED: 04504148 Status: progressing Assessment/Plan a fib cva sepsis and pna leukocytosis improving abx per id no bleeding Subjective ROS Limited/Unobtainable: Yes Constitutional: Reports: no symptoms Allergies: Coded Allergies: No Known Allergies (Verified , 12/27/08) Objective Last 24 Hour Vital Signs Date Time Temp Pulse Resp B/P Pulse Ox O2 Delivery O2 Flow Rate FiO2 12/08/16 08:00 96.6 83 20 106/65 99 Non-Rebreather 15.0 12/08/16 04:00 97.9 80 18 107/62 100 Non-Rebreather 15.0 12/08/16 00:00 98.1 96 18 127/82 95 Non-Rebreather 15.0 12/07/16 20:34 Venturi Mask 14.0 55 12/07/16 20:34 99 Venturi Mask 14.0 55 12/07/16 20:00 99.0 89 18 110/66 100 Room Air 12/07/16 18:17 98.6 12/07/16 16:00 98.6 91 22 125/76 98 Room Air 12/07/16 12:00 97.7 84 18 110/61 97 Room Air Intake and Output 12/07/16 12/08/16 19:00 07:00 Intake Total 1795.0 ml 1805.0 ml Output Total 400 ml 1200 ml Balance 1395.0 ml 605.0 ml Intake Free Water 200 ml 100 ml IV Total 990.0 ml 1045.0 ml Tube Feeding 605 ml 660 ml Output Urine Total 400 ml 1200 ml # Bowel Movements 1 Laboratory Tests 12/08/16 11:00: White Blood Count 10.8, Red Blood Count 3.09L, Hemoglobin 9.4L, Hematocrit 30.3L , Mean Corpuscular Volume 98, Mean Corpuscular Hemoglobin 30.5, Mean Corpuscular Hemoglobin Concent 31.1L, Red Cell Distribution Width 14.1, Platelet Count 333, Mean Platelet Volume 8.0, Neutrophils (%) (Auto) 77.2H, Lymphocytes (%) (Auto) 13.9L, Monocytes (%) (Auto) 5.4, Eosinophils (%) (Auto) 2.8, Basophils (%) (Auto) 0.7 Height (Feet): 5 Height (Inches): 7.00 Weight (Pounds): 221 EENT: PERRL/EOMI Neck: supple Cardiovascular: normal rate Respiratory/Chest: lungs clear Aliza Faria MD Dec 08, 2016 12:00
--- NOTE | 2016-12-08 12:44 | General Progress Note ---
Progress Note Progress Note Surgery: Patient seen and examined at bedside. no acute changes. doing well. tolerating feeds. +BM's. Exam stable. Leukocytosis resolved. labs improved. No acute surgical intervention necessary. Pancreatitis resolving clinically. Continue current care and management. Ozzie Flynn Dec 08, 2016 12:44
--- NOTE | 2016-12-08 12:53 | General Progress Note ---
Assessment/Plan Status: unchanged Status Narrative Cr remains 1.8 Assessment/Plan Acute renal failure due to sepsis , low BP , GI bleed Sepsis Hyperglycemia Choledocholithiasis Aspiration into lower respiratory tract coagulopathy 2 to anticoagulation use hx of At fib hx of CVA seizure disorder pressure ulcer dysphagia, G tube HTN elevated LFTs, declining Plan: Hydrate- D5 Stop Depakote, high LFTs, check level Avoid Nephrotoxics Monitor renal parameters and H&h Urine studies stop Norvasc and cardura for low bp Per orders Subjective ROS Limited/Unobtainable: No Constitutional: Reports: malaise Allergies: Coded Allergies: No Known Allergies (Verified , 12/27/08) Objective Last 24 Hour Vital Signs Date Time Temp Pulse Resp B/P Pulse Ox O2 Delivery O2 Flow Rate FiO2 12/08/16 12:00 97.9 85 20 108/59 100 Non-Rebreather 15.0 12/08/16 08:00 96.6 83 20 106/65 99 Non-Rebreather 15.0 12/08/16 04:00 97.9 80 18 107/62 100 Non-Rebreather 15.0 12/08/16 00:00 98.1 96 18 127/82 95 Non-Rebreather 15.0 12/07/16 20:34 Venturi Mask 14.0 55 12/07/16 20:34 99 Venturi Mask 14.0 55 12/07/16 20:00 99.0 89 18 110/66 100 Room Air 12/07/16 18:17 98.6 12/07/16 16:00 98.6 91 22 125/76 98 Room Air Intake and Output 12/07/16 12/08/16 19:00 07:00 Intake Total 1795.0 ml 1860.0 ml Output Total 400 ml 1200 ml Balance 1395.0 ml 660.0 ml Intake Free Water 200 ml 100 ml IV Total 990.0 ml 1045.0 ml Tube Feeding 605 ml 715 ml Output Urine Total 400 ml 1200 ml # Bowel Movements 1 Laboratory Tests 12/08/16 11:00: White Blood Count 10.8, Red Blood Count 3.09L, Hemoglobin 9.4L, Hematocrit 30.3L , Mean Corpuscular Volume 98, Mean Corpuscular Hemoglobin 30.5, Mean Corpuscular Hemoglobin Concent 31.1L, Red Cell Distribution Width 14.1, Platelet Count 333, Mean Platelet Volume 8.0, Neutrophils (%) (Auto) 77.2H, Lymphocytes (%) (Auto) 13.9L, Monocytes (%) (Auto) 5.4, Eosinophils (%) (Auto) 2.8, Basophils (%) (Auto) 0.7 Height (Feet): 5 Height (Inches): 7.00 Weight (Pounds): 221 General Appearance: no apparent distress, lethargic Cardiovascular: normal rate Respiratory/Chest: decreased breath sounds Objective other physical exam not changed ALONDRA FULTON Dec 08, 2016 12:53
[2016-12-08] MEDS ORDERED: Tubing IV Secondary IV ONE (13:33)
--- NOTE | 2016-12-08 14:47 | Infectious Diseases Prog Note ---
Assessment/Plan Problems: (1) HCAP (healthcare-associated pneumonia) Assessment & Plan: improved on vancomycin and zosyn, recieved 9 days of vancomycin, and zosyn. will continue zosyn only for now for sepsis and intraabdominal phlegmon treatment, continue to monitor CXR, sputum culture showed no growth , pulmonary is following (2) UTI (urinary tract infection) Assessment & Plan: on zosyn, no urine culture was done (3) Sepsis Assessment & Plan: with Citrobacter diversus which is real , source most likely GI or tract . on zosyn , repeated blood culture is negative so far on 11/30/16 which confirm clearance, will treat with zosyn for two weeks starting from the clearance date . EOT 12/14/16 (4) FABIOLA (acute kidney injury) Assessment & Plan: due to sepsis, continue hydration, avoid nephrotoxic meds (5) Acute pancreatitis Assessment & Plan: complicated with intraabdominal phlegmon , will continue wide spectrum antibiotics therapy, may need ERCP for source control to relief CBD if really obstructed. (6) Cellulitis of abdominal wall Assessment & Plan: due to G tube, S/P removal, already on wide spectrum antibiotics therapy, continue G tube care as needed (7) Gastrojejunostomy tube dislodgement Assessment & Plan: S/P replacement by GI , continue local care Subjective ROS Limited/Unobtainable: Yes Allergies: Coded Allergies: No Known Allergies (Verified , 12/27/08) Subjective he is comfortable, nonverbal , breathing well on room air , doesn't follow commands , not in distress, afebrile. Objective Vital Signs Last 24 Hour Vital Signs Date Time Temp Pulse Resp B/P Pulse Ox O2 Delivery O2 Flow Rate FiO2 12/08/16 12:00 97.9 85 20 108/59 100 Non-Rebreather 15.0 12/08/16 08:00 96.6 83 20 106/65 99 Non-Rebreather 15.0 12/08/16 04:00 97.9 80 18 107/62 100 Non-Rebreather 15.0 12/08/16 00:00 98.1 96 18 127/82 95 Non-Rebreather 15.0 12/07/16 20:34 Venturi Mask 14.0 55 12/07/16 20:34 99 Venturi Mask 14.0 55 12/07/16 20:00 99.0 89 18 110/66 100 Room Air 12/07/16 18:17 98.6 12/07/16 16:00 98.6 91 22 125/76 98 Room Air Height (Feet): 5 Height (Inches): 7.00 Weight (Pounds): 221 General Appearance: WD/WN, no acute distress HEENT: normocephalic, atraumatic, anicteric, mucous membranes moist Respiratory/Chest: chest wall non-tender, normal breath sounds, no respiratory distress, no accessory muscle use, decreased breath sounds, crackles/rales Cardiovascular: normal peripheral pulses, normal rate, regular rhythm, no gallop/murmur Abdomen: normal bowel sounds, soft, non tender, no organomegaly, non distended , no mass Extremities: no cyanosis, no clubbing Skin: no rash, no lesions Laboratory Tests Test 12/08/16 11:00 White Blood Count 10.8 K/UL (4.8-10.8) Red Blood Count 3.09 M/UL (4.70-6.10) L Hemoglobin 9.4 G/DL (14.2-18.0) L Hematocrit 30.3 % (42.0-52.0) L Mean Corpuscular Volume 98 FL (80-99) Mean Corpuscular Hemoglobin 30.5 PG (27.0-31.0) Mean Corpuscular Hemoglobin Concent 31.1 G/DL (32.0-36.0) L Red Cell Distribution Width 14.1 % (11.6-14.8) Platelet Count 333 K/UL (150-450) Mean Platelet Volume 8.0 FL (6.5-10.1) Neutrophils (%) (Auto) 77.2 % (45.0-75.0) H Lymphocytes (%) (Auto) 13.9 % (20.0-45.0) L Monocytes (%) (Auto) 5.4 % (1.0-10.0) Eosinophils (%) (Auto) 2.8 % (0.0-3.0) Basophils (%) (Auto) 0.7 % (0.0-2.0) Current Medications Medications (Trade) Dose Ordered Sig/Jamaal Route PRN Reason Start Time Stop Time Status Last Admin Dose Admin Acetaminophen (Tylenol) 650 mg Q4H PRN ORAL Fever>100.5 12/03/16 18:00 01/02/17 17:59 Clonidine HCl (Catapres) 0.1 mg Q8H PRN GT sbp> 160 12/03/16 18:00 01/02/17 17:59 Dextrose (D5W 1000ml) 1,000 ml @ 85 mls/hr [id number] IV 12/03/16 18:30 01/02/17 18:29 12/08/16 05:30 Dextrose (Dextrose 50%) STAT PRN IV Hypoglycemia 12/03/16 18:00 01/02/17 17:59 Insulin Aspart (NovoLOG) EVERY 6 HOURS SUBQ 12/04/16 00:00 01/03/17 00:00 12/08/16 12:33 Insulin Detemir (Levemir) 12 units Q12HR SUBQ 12/08/16 21:00 01/07/17 20:59 Lorazepam (Ativan 2mg/ml 1ml) 2 mg Q2H PRN IV agitation 12/03/16 18:00 12/10/16 17:59 Morphine Sulfate (Morphine Sulfate) 4 mg Q4H PRN IVP Severe Pain (Pain Scale 7-10) 12/03/16 18:00 12/10/16 17:59 12/07/16 17:47 Nitroglycerin (Ntg) 0.4 mg Q5M PRN SL Prn Chest Pain 12/03/16 18:00 01/02/17 17:59 Ondansetron HCl (Zofran) 4 mg Q6H PRN IVP Nausea & Vomiting 12/03/16 18:00 01/02/17 17:59 Pantoprazole (Protonix) 40 mg DAILY IVP 12/04/16 09:00 01/03/17 08:59 12/08/16 09:33 Piperacillin Sod/ Tazobactam Sod/ Sodium Chloride (Zosyn/Sodium Chloride) 110 ml @ 27.5 mls/hr Q8HR IVPB 12/04/16 22:00 12/11/16 21:59 12/08/16 06:45 Polyethylene Glycol 17 gm 17 gm DAILYPRN PRN ORAL Constipation 12/03/16 18:00 01/02/17 17:59 Ariana Acevedo M.D. Dec 08, 2016 14:47
[2016-12-08 16:00] VITALS: BP 164/83
--- NOTE | 2016-12-08 18:20 | Cardiac Electrophysiology PN ---
Assessment/Plan Assessment/Plan 1. Sinus tachycardia due to sepsis and dehydration. Improved 2. Paroxysmal atrial fibrillation.Off Coumadin for GI bleed. Off of any AV teodora jacinto. Echo EF 40% 3. Sepsis. On broad-spectrum antibiotic 4. Status post PEG 5. Hypernatremia and azotemia secondary to dehydration.On iv fluids 6. Coffee-ground emesis. F/U per Dr. Wilson. 7. Billiary Pancreatitis.MRCP no CBD stone? passed CBD stone 8. Bio Ethics consult pending regarding DNR/DNI 9. Placement issues DW RN Subjective Subjective Nonverbal in NAD.No event overnight. On iv abx.Awaiting Bioethics and placement. Objective Last 24 Hour Vital Signs Date Time Temp Pulse Resp B/P Pulse Ox O2 Delivery O2 Flow Rate FiO2 12/08/16 16:00 98.2 90 20 164/83 99 Non-Rebreather 15.0 12/08/16 12:00 97.9 85 20 108/59 100 Non-Rebreather 15.0 12/08/16 08:00 96.6 83 20 106/65 99 Non-Rebreather 15.0 12/08/16 04:00 97.9 80 18 107/62 100 Non-Rebreather 15.0 12/08/16 00:00 98.1 96 18 127/82 95 Non-Rebreather 15.0 12/07/16 20:34 Venturi Mask 14.0 55 12/07/16 20:34 99 Venturi Mask 14.0 55 12/07/16 20:00 99.0 89 18 110/66 100 Room Air Intake and Output 12/07/16 12/08/16 19:00 07:00 Intake Total 1795.0 ml 1860.0 ml Output Total 400 ml 1200 ml Balance 1395.0 ml 660.0 ml Intake Free Water 200 ml 100 ml IV Total 990.0 ml 1045.0 ml Tube Feeding 605 ml 715 ml Output Urine Total 400 ml 1200 ml # Bowel Movements 1 Laboratory Tests Test 12/08/16 11:00 White Blood Count 10.8 K/UL (4.8-10.8) Red Blood Count 3.09 M/UL (4.70-6.10) L Hemoglobin 9.4 G/DL (14.2-18.0) L Hematocrit 30.3 % (42.0-52.0) L Mean Corpuscular Volume 98 FL (80-99) Mean Corpuscular Hemoglobin 30.5 PG (27.0-31.0) Mean Corpuscular Hemoglobin Concent 31.1 G/DL (32.0-36.0) L Red Cell Distribution Width 14.1 % (11.6-14.8) Platelet Count 333 K/UL (150-450) Mean Platelet Volume 8.0 FL (6.5-10.1) Neutrophils (%) (Auto) 77.2 % (45.0-75.0) H Lymphocytes (%) (Auto) 13.9 % (20.0-45.0) L Monocytes (%) (Auto) 5.4 % (1.0-10.0) Eosinophils (%) (Auto) 2.8 % (0.0-3.0) Basophils (%) (Auto) 0.7 % (0.0-2.0) Objective NECK: No JVD. LUNGS: Coarse rhonchi. CARDIOVASCULAR: Nl S1 and S2 with no murmur. ABDOMEN: Soft. G-tube. EXTREMITIES: 1+ pitting edema. BRYON AC Dec 08, 2016 18:20
--- NOTE | 2016-12-08 19:06 | General Progress Note ---
Assessment/Plan Assessment/Plan Assessment/Plan ASSESSMENT: 1. Coagulopathy with supertherapeutic - now improved, can consider to restart coumadin 2. Anemia 2/2 chronic disease, is without major changes, hgb >10 3. Leukocytosis secondary to underlying infection with pancreatitis and elevated lipase. 4. A-fibrillation was on coumadin before 5. r/o gastrointestinal bleed. 6. Dysphagia. 7. Dementia. 8. Hyperglycemia. 9. Sepsis. RECS: 1. Monitor counts. 2. Transfuse as needed 3. Anemia w/u if hgb <10 4. Okay to restart coumadin if cleared by other services 5. Consider inr 2-3 once coumadin restarted 6. Antibiotics as needed. 7. Discussed with staff. 8. Continue PPI. Thank you, Larry Ramirez MD Subjective HEENT: Reports: no symptoms Cardiovascular: Reports: no symptoms Respiratory: Reports: no symptoms Gastrointestinal/Abdominal: Reports: no symptoms Genitourinary: Reports: no symptoms Neurologic/Psychiatric: Reports: no symptoms Endocrine: Reports: no symptoms Hematologic/Lymphatic: Reports: no symptoms Allergies: Coded Allergies: No Known Allergies (Verified , 12/27/08) Objective Last 24 Hour Vital Signs Date Time Temp Pulse Resp B/P Pulse Ox O2 Delivery O2 Flow Rate FiO2 12/08/16 16:00 98.2 90 20 164/83 99 Non-Rebreather 15.0 12/08/16 12:00 97.9 85 20 108/59 100 Non-Rebreather 15.0 12/08/16 08:00 96.6 83 20 106/65 99 Non-Rebreather 15.0 12/08/16 04:00 97.9 80 18 107/62 100 Non-Rebreather 15.0 12/08/16 00:00 98.1 96 18 127/82 95 Non-Rebreather 15.0 12/07/16 20:34 Venturi Mask 14.0 55 12/07/16 20:34 99 Venturi Mask 14.0 55 12/07/16 20:00 99.0 89 18 110/66 100 Room Air Intake and Output 12/07/16 12/08/16 19:00 07:00 Intake Total 1795.0 ml 1860.0 ml Output Total 400 ml 1200 ml Balance 1395.0 ml 660.0 ml Intake Free Water 200 ml 100 ml IV Total 990.0 ml 1045.0 ml Tube Feeding 605 ml 715 ml Output Urine Total 400 ml 1200 ml # Bowel Movements 1 Laboratory Tests 12/08/16 11:00: White Blood Count 10.8, Red Blood Count 3.09L, Hemoglobin 9.4L, Hematocrit 30.3L , Mean Corpuscular Volume 98, Mean Corpuscular Hemoglobin 30.5, Mean Corpuscular Hemoglobin Concent 31.1L, Red Cell Distribution Width 14.1, Platelet Count 333, Mean Platelet Volume 8.0, Neutrophils (%) (Auto) 77.2H, Lymphocytes (%) (Auto) 13.9L, Monocytes (%) (Auto) 5.4, Eosinophils (%) (Auto) 2.8, Basophils (%) (Auto) 0.7 Height (Feet): 5 Height (Inches): 7.00 Weight (Pounds): 221 General Appearance: lethargic EENT: TMs normal Neck: supple Cardiovascular: regular rhythm Respiratory/Chest: lungs clear Abdomen: no mass Pelvis: no masses Extremities: non-tender Edema: no edema noted Arm (L), no edema noted Arm (R), no edema noted Leg (L), no edema noted Leg (R), no edema noted Pedal (L), no edema noted Pedal (R), no edema noted Generalized Skin: warm/dry MOISÉS RAMIREZ Dec 08, 2016 19:06
[2016-12-08 20:00] VITALS: BP 114/63
--- NOTE | 2016-12-08 21:43 | Pulmonology Progress Note ---
Assessment/Plan Problems: (1) Coffee ground vomiting (2) Coagulopathy (3) Sepsis (4) Acute pancreatitis (5) Limited mobility in bed (6) Feeding by G-tube (7) Choledocholithiasis (8) Dementia Assessment/Plan wbc still high amylase decreasing MRI of abdomen noted continue abx for bacteremia. Heart rate controlled. may go to med/surg. Subjective ROS Limited/Unobtainable: No Constitutional: Reports: anorexia, fatigue Respiratory: Reports: shortness of breath Gastrointestinal/Abdominal: Reports: bloating, nausea, vomiting Allergies: Coded Allergies: No Known Allergies (Verified , 12/27/08) Objective Last 24 Hour Vital Signs Date Time Temp Pulse Resp B/P Pulse Ox O2 Delivery O2 Flow Rate FiO2 12/08/16 16:00 98.2 90 20 164/83 99 Non-Rebreather 15.0 12/08/16 12:00 97.9 85 20 108/59 100 Non-Rebreather 15.0 12/08/16 08:00 96.6 83 20 106/65 99 Non-Rebreather 15.0 12/08/16 04:00 97.9 80 18 107/62 100 Non-Rebreather 15.0 12/08/16 00:00 98.1 96 18 127/82 95 Non-Rebreather 15.0 Intake and Output 12/07/16 12/08/16 19:00 07:00 Intake Total 1795.0 ml 1860.0 ml Output Total 400 ml 1200 ml Balance 1395.0 ml 660.0 ml Intake Free Water 200 ml 100 ml IV Total 990.0 ml 1045.0 ml Tube Feeding 605 ml 715 ml Output Urine Total 400 ml 1200 ml # Bowel Movements 1 General Appearance: no acute distress HEENT: normocephalic, atraumatic, PERRL Respiratory/Chest: chest wall non-tender, decreased breath sounds, accessory muscle use Cardiovascular: normal peripheral pulses, normal rate, regular rhythm, no JVD Abdomen: hyperactive bowel sounds, distended, guarding, tender, rebound tenderness Genitourinary: normal external genitalia Extremities: no cyanosis Neurologic/Psychiatric: 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 II-XII grossly normal, no motor/sensory deficits Laboratory Tests 12/08/16 11:00: White Blood Count 10.8, Red Blood Count 3.09L, Hemoglobin 9.4L, Hematocrit 30.3L , Mean Corpuscular Volume 98, Mean Corpuscular Hemoglobin 30.5, Mean Corpuscular Hemoglobin Concent 31.1L, Red Cell Distribution Width 14.1, Platelet Count 333, Mean Platelet Volume 8.0, Neutrophils (%) (Auto) 77.2H, Lymphocytes (%) (Auto) 13.9L, Monocytes (%) (Auto) 5.4, Eosinophils (%) (Auto) 2.8, Basophils (%) (Auto) 0.7 Current Medications Medications (Trade) Dose Ordered Sig/Jamaal Route PRN Reason Start Time Stop Time Status Last Admin Dose Admin Acetaminophen (Tylenol) 650 mg Q4H PRN ORAL Fever>100.5 12/03/16 18:00 01/02/17 17:59 Clonidine HCl (Catapres) 0.1 mg Q8H PRN GT sbp> 160 12/03/16 18:00 01/02/17 17:59 Dextrose (D5W 1000ml) 1,000 ml @ 85 mls/hr [id number] IV 12/03/16 18:30 01/02/17 18:29 12/08/16 16:14 Dextrose (Dextrose 50%) STAT PRN IV Hypoglycemia 12/03/16 18:00 01/02/17 17:59 Insulin Aspart (NovoLOG) EVERY 6 HOURS SUBQ 12/04/16 00:00 01/03/17 00:00 12/08/16 17:51 Insulin Detemir (Levemir) 12 units Q12HR SUBQ 12/08/16 21:00 01/07/17 20:59 12/08/16 20:12 Lorazepam (Ativan 2mg/ml 1ml) 2 mg Q2H PRN IV agitation 12/03/16 18:00 12/10/16 17:59 Morphine Sulfate (Morphine Sulfate) 4 mg Q4H PRN IVP Severe Pain (Pain Scale 7-10) 12/03/16 18:00 12/10/16 17:59 12/07/16 17:47 Nitroglycerin (Ntg) 0.4 mg Q5M PRN SL Prn Chest Pain 12/03/16 18:00 01/02/17 17:59 Ondansetron HCl (Zofran) 4 mg Q6H PRN IVP Nausea & Vomiting 12/03/16 18:00 01/02/17 17:59 Pantoprazole (Protonix) 40 mg DAILY IVP 12/04/16 09:00 01/03/17 08:59 12/08/16 09:33 Piperacillin Sod/ Tazobactam Sod/ Sodium Chloride (Zosyn/Sodium Chloride) 110 ml @ 27.5 mls/hr Q8HR IVPB 12/04/16 22:00 12/11/16 21:59 12/08/16 21:03 Polyethylene Glycol 17 gm 17 gm DAILYPRN PRN ORAL Constipation 12/03/16 18:00 01/02/17 17:59 SONIA ALBERTS Dec 08, 2016 21:43
[2016-12-09] VITALS: BP 104/65
[2016-12-09] MEDS: NovoLOG Insulin Flexpen SUBQ SCH ×4 (00:57→17:35)
[2016-12-09 04:00] VITALS: BP 115/64
[2016-12-09] MEDS: Piperacillin/Tazobactam 3.375 GM in NS 110 ML IVPB SCH ×3 (06:05→21:13)
[2016-12-09 08:00] VITALS: BP 125/77
--- NOTE | 2016-12-09 08:13 | General Progress Note ---
Assessment/Plan Assessment/Plan ASSESSMENT: 1. Coagulopathy with supertherapeutic INR - remains elevated, mixing study correct indicating factor deficiency, sepsis 2. Anemia 2/2 chronic disease, is without major changes, hgb >10 3. Leukocytosis secondary to underlying infection with pancreatitis and elevated lipase. 4. A-fibrillation was on coumadin before - currently off it given bleed 5. r/o gastrointestinal bleed. 6. Dysphagia. 7. Dementia. 8. Hyperglycemia. 9. Sepsis. RECS: 1. Monitor counts 2. Monitor coagulopathy 3. Anemia w/u reviewed, transfuse as needed, hgb goal >7 4. Coumadin on hold given Gi bleed 5. Appreciate GI, pulm, cards recs 6. Antibiotics on prn basis 7. Discussed with staff. 8. Follow from hematology perspective Thank you, Abdifatah Ramirez MD Subjective Constitutional: Reports: no symptoms HEENT: Reports: no symptoms Cardiovascular: Reports: no symptoms Respiratory: Reports: no symptoms Gastrointestinal/Abdominal: Reports: poor appetite Genitourinary: Reports: no symptoms Neurologic/Psychiatric: Reports: no symptoms Endocrine: Reports: no symptoms Hematologic/Lymphatic: Reports: anemia Allergies: Coded Allergies: No Known Allergies (Verified , 12/27/08) Subjective stable, tired, is nonverbal Objective Last 24 Hour Vital Signs Date Time Temp Pulse Resp B/P Pulse Ox O2 Delivery O2 Flow Rate FiO2 12/09/16 04:00 98.2 88 22 115/64 98 Venturi Mask 15.0 12/09/16 00:00 98.1 89 22 104/65 98 Venturi Mask 15.0 12/08/16 20:00 99.0 92 18 114/63 99 Simple Mask 12/08/16 16:00 98.2 90 20 164/83 99 Non-Rebreather 15.0 12/08/16 12:00 97.9 85 20 108/59 100 Non-Rebreather 15.0 Intake and Output 12/08/16 12/09/16 19:00 07:00 Intake Total 965 ml 1615.0 ml Output Total 1100 ml 200 ml Balance -135 ml 1415.0 ml Intake Free Water 190 ml 190 ml IV Total 170 ml 875.0 ml Tube Feeding 605 ml 550 ml Output Urine Total 1100 ml 200 ml # Bowel Movements 1 1 Laboratory Tests 12/08/16 11:00: White Blood Count 10.8, Red Blood Count 3.09L, Hemoglobin 9.4L, Hematocrit 30.3L , Mean Corpuscular Volume 98, Mean Corpuscular Hemoglobin 30.5, Mean Corpuscular Hemoglobin Concent 31.1L, Red Cell Distribution Width 14.1, Platelet Count 333, Mean Platelet Volume 8.0, Neutrophils (%) (Auto) 77.2H, Lymphocytes (%) (Auto) 13.9L, Monocytes (%) (Auto) 5.4, Eosinophils (%) (Auto) 2.8, Basophils (%) (Auto) 0.7 Height (Feet): 5 Height (Inches): 7.00 Weight (Pounds): 221 General Appearance: alert EENT: normal ENT inspection Neck: normal inspection Cardiovascular: normal rate Respiratory/Chest: normal breath sounds Abdomen: no organomegaly Extremities: non-tender Edema: 1+ Leg (L), 1+ Leg (R) Edema: mild edema Neurologic: oriented x 3 Skin: warm/dry Abdifatah Ramirez Dec 09, 2016 08:13
[2016-12-09] MEDS: Pantoprazole Inj IVP SCH (09:00)
[2016-12-09] MEDS: Levemir Flexpen SUBQ SCH ×2 (09:06→20:22)
[2016-12-09 10:42] LABS: INR 1.1 (0.9-1.1); PROTHROMBIN TIME 11.6 SEC (9.30-11.50)
--- NOTE | 2016-12-09 11:03 | General Progress Note ---
Assessment/Plan Problem List: (1) Hyperglycemia ICD Codes: R73.9 - Hyperglycemia, unspecified SNOMED: 43001465 (2) FABIOLA (acute kidney injury) ICD Codes: N17.9 - Acute kidney failure, unspecified SNOMED: 91910590 (3) Coagulopathy ICD Codes: D68.9 - Coagulopathy SNOMED: 37406076 (4) Acute pancreatitis ICD Codes: K85.90 - Acute pancreatitis without necrosis or infection, unspecified SNOMED: 849613341 Qualifiers: Qualified Codes: K85.10 - Biliary acute pancreatitis without necrosis or infection Assessment/Plan increase Levemir 12 to 16 units bid continue Novolog sliding scale as is Subjective ROS Limited/Unobtainable: Yes Allergies: Coded Allergies: No Known Allergies (Verified , 12/27/08) Subjective events noted - on O2 mask - on TF Objective Last 24 Hour Vital Signs Date Time Temp Pulse Resp B/P Pulse Ox O2 Delivery O2 Flow Rate FiO2 12/09/16 08:00 99.7 83 20 125/77 100 Non-Rebreather 15.0 12/09/16 04:00 98.2 88 22 115/64 98 Venturi Mask 15.0 12/09/16 00:00 98.1 89 22 104/65 98 Venturi Mask 15.0 12/08/16 20:00 99.0 92 18 114/63 99 Simple Mask 12/08/16 16:00 98.2 90 20 164/83 99 Non-Rebreather 15.0 12/08/16 12:00 97.9 85 20 108/59 100 Non-Rebreather 15.0 Intake and Output 12/08/16 12/09/16 19:00 07:00 Intake Total 965 ml 1615.0 ml Output Total 1100 ml 200 ml Balance -135 ml 1415.0 ml Intake Free Water 190 ml 190 ml IV Total 170 ml 875.0 ml Tube Feeding 605 ml 550 ml Output Urine Total 1100 ml 200 ml # Bowel Movements 1 1 Laboratory Tests 12/09/16 09:00: Prothrombin Time 11.6H, Prothromb Time International Ratio 1.1 Height (Feet): 5 Height (Inches): 7.00 Weight (Pounds): 221 General Appearance: no apparent distress, lethargic Neck: normal alignment Cardiovascular: normal rate Respiratory/Chest: decreased breath sounds Pelvis: normal external exam Edema: 1+ Arm (L), 1+ Arm (R), 1+ Leg (L), 1+ Leg (R), 1+ Pedal (L), 1+ Pedal ( R), 1+ Generalized Objective Current Medications Medications (Trade) Dose Ordered Sig/Jamaal Route PRN Reason Start Time Stop Time Status Last Admin Dose Admin Acetaminophen (Tylenol) 650 mg Q4H PRN ORAL Fever>100.5 12/03/16 18:00 01/02/17 17:59 Clonidine HCl (Catapres) 0.1 mg Q8H PRN GT sbp> 160 12/03/16 18:00 01/02/17 17:59 Dextrose (D5W 1000ml) 1,000 ml @ 85 mls/hr [id number] IV 12/03/16 18:30 01/02/17 18:29 12/08/16 16:14 Dextrose (Dextrose 50%) STAT PRN IV Hypoglycemia 12/03/16 18:00 01/02/17 17:59 Insulin Aspart (NovoLOG) EVERY 6 HOURS SUBQ 12/04/16 00:00 01/03/17 00:00 12/09/16 06:07 Insulin Detemir (Levemir) 12 units Q12HR SUBQ 12/08/16 21:00 01/07/17 20:59 12/09/16 09:06 Lorazepam (Ativan 2mg/ml 1ml) 2 mg Q2H PRN IV agitation 12/03/16 18:00 12/10/16 17:59 Morphine Sulfate (Morphine Sulfate) 4 mg Q4H PRN IVP Severe Pain (Pain Scale 7-10) 12/03/16 18:00 12/10/16 17:59 12/07/16 17:47 Nitroglycerin (Ntg) 0.4 mg Q5M PRN SL Prn Chest Pain 12/03/16 18:00 01/02/17 17:59 Ondansetron HCl (Zofran) 4 mg Q6H PRN IVP Nausea & Vomiting 12/03/16 18:00 01/02/17 17:59 Pantoprazole (Protonix) 40 mg DAILY IVP 12/04/16 09:00 01/03/17 08:59 12/09/16 09:00 Piperacillin Sod/ Tazobactam Sod/ Sodium Chloride (Zosyn/Sodium Chloride) 110 ml @ 27.5 mls/hr Q8HR IVPB 12/04/16 22:00 12/11/16 21:59 12/09/16 06:05 Polyethylene Glycol 17 gm 17 gm DAILYPRN PRN ORAL Constipation 12/03/16 18:00 01/02/17 17:59 Item Value Date Time Bedside Blood Glucose 214 mg/dl H 12/09/16 0906 Bedside Blood Glucose 214 mg/dl H 12/09/16 0607 Bedside Blood Glucose 244 mg/dl H 12/09/16 0057 Bedside Blood Glucose 233 mg/dl H 12/08/162056 Bedside Blood Glucose 248 mg/dl H 12/08/16 175 SUZIE FELDER 26, 2017 11:03
--- NOTE | 2016-12-09 11:39 | General Progress Note ---
Assessment/Plan Status: unchanged Status Narrative Cr 1.8 Assessment/Plan Acute renal failure due to sepsis , low BP , GI bleed Sepsis Hyperglycemia Choledocholithiasis Aspiration into lower respiratory tract coagulopathy 2 to anticoagulation use hx of At fib hx of CVA seizure disorder pressure ulcer dysphagia, G tube HTN elevated LFTs, declining Plan: No labs today- Hydrate- D5 Stop Depakote, high LFTs, check level Avoid Nephrotoxics Monitor renal parameters and H&h Urine studies stop Norvasc and cardura for low bp Per orders Subjective ROS Limited/Unobtainable: Yes Allergies: Coded Allergies: No Known Allergies (Verified , 12/27/08) Objective Last 24 Hour Vital Signs Date Time Temp Pulse Resp B/P Pulse Ox O2 Delivery O2 Flow Rate FiO2 12/09/16 08:00 99.7 83 20 125/77 100 Non-Rebreather 15.0 12/09/16 04:00 98.2 88 22 115/64 98 Venturi Mask 15.0 12/09/16 00:00 98.1 89 22 104/65 98 Venturi Mask 15.0 12/08/16 20:00 99.0 92 18 114/63 99 Simple Mask 12/08/16 16:00 98.2 90 20 164/83 99 Non-Rebreather 15.0 12/08/16 12:00 97.9 85 20 108/59 100 Non-Rebreather 15.0 Intake and Output 12/08/16 12/09/16 19:00 07:00 Intake Total 965 ml 1615.0 ml Output Total 1100 ml 200 ml Balance -135 ml 1415.0 ml Intake Free Water 190 ml 190 ml IV Total 170 ml 875.0 ml Tube Feeding 605 ml 550 ml Output Urine Total 1100 ml 200 ml # Bowel Movements 1 1 Laboratory Tests 12/09/16 09:00: Prothrombin Time 11.6H, Prothromb Time International Ratio 1.1 Height (Feet): 5 Height (Inches): 7.00 Weight (Pounds): 221 General Appearance: mild distress Cardiovascular: normal rate Respiratory/Chest: decreased breath sounds Abdomen: distended Objective other physical exam not changed ALONDRA FULTON Dec 09, 2016 11:39
--- NOTE | 2016-12-09 11:43 | General Progress Note ---
Assessment/Plan Problem List: (1) Hyperglycemia ICD Codes: R73.9 - Hyperglycemia, unspecified SNOMED: 33851753 (2) FABIOLA (acute kidney injury) ICD Codes: N17.9 - Acute kidney failure, unspecified SNOMED: 93531196 (3) Choledocholithiasis ICD Codes: K80.50 - Calculus of bile duct without cholangitis or cholecystitis without obstruction SNOMED: 282624399 (4) Pressure ulcer ICD Codes: L89.90 - Pressure ulcer SNOMED: 929918525 (5) Fever ICD Codes: R50.9 - Fever SNOMED: 982894599 (6) Anemia ICD Codes: D64.9 - Anemia SNOMED: 704860135 (7) Cellulitis ICD Codes: L03.90 - Cellulitis SNOMED: 276052341 (8) Seizure disorder ICD Codes: G40.909 - Seizure disorder SNOMED: 604189526 (9) Sepsis ICD Codes: A41.9 - Sepsis, unspecified organism SNOMED: 66326511 Qualifiers: Qualified Codes: A41.9 - Sepsis, unspecified organism (10) Venous stasis ulcers ICD Codes: I83.009 - Venous stasis ulcers SNOMED: 054980150 (11) Bilateral lower extremity edema (12) Dementia ICD Codes: F03.90 - Unspecified dementia without behavioral disturbance SNOMED: 30660752 Qualifiers: Qualified Codes: F01.50 - Vascular dementia without behavioral disturbance (13) Coffee ground vomiting ICD Codes: K92.0 - Hematemesis SNOMED: 38658666 (14) Leukocytosis ICD Codes: D72.829 - Elevated white blood cell count, unspecified SNOMED: 938264170, 504492025 (15) UTI (urinary tract infection) ICD Codes: N39.0 - Urinary tract infection, site not specified SNOMED: 80194076 Status: progressing Assessment/Plan agree with comfort care/dnr will dc in am back to snf Subjective ROS Limited/Unobtainable: Yes Constitutional: Reports: no symptoms Allergies: Coded Allergies: No Known Allergies (Verified , 12/27/08) Objective Last 24 Hour Vital Signs Date Time Temp Pulse Resp B/P Pulse Ox O2 Delivery O2 Flow Rate FiO2 12/09/16 08:00 99.7 83 20 125/77 100 Non-Rebreather 15.0 12/09/16 04:00 98.2 88 22 115/64 98 Venturi Mask 15.0 12/09/16 00:00 98.1 89 22 104/65 98 Venturi Mask 15.0 12/08/16 20:00 99.0 92 18 114/63 99 Simple Mask 12/08/16 16:00 98.2 90 20 164/83 99 Non-Rebreather 15.0 12/08/16 12:00 97.9 85 20 108/59 100 Non-Rebreather 15.0 Intake and Output 12/08/16 12/09/16 19:00 07:00 Intake Total 965 ml 1615.0 ml Output Total 1100 ml 200 ml Balance -135 ml 1415.0 ml Intake Free Water 190 ml 190 ml IV Total 170 ml 875.0 ml Tube Feeding 605 ml 550 ml Output Urine Total 1100 ml 200 ml # Bowel Movements 1 1 Laboratory Tests 12/09/16 09:00: Prothrombin Time 11.6H, Prothromb Time International Ratio 1.1 Height (Feet): 5 Height (Inches): 7.00 Weight (Pounds): 221 EENT: PERRL/EOMI Neck: supple Cardiovascular: normal rate Respiratory/Chest: lungs clear Abdomen: soft Aliza Faria MD Dec 09, 2016 11:43
[2016-12-09 12:00] VITALS: BP 149/69
--- NOTE | 2016-12-09 15:04 | General Progress Note ---
Progress Note Progress Note T-max 99.7. Pt is awake, non verbal. He is tolerating the G-tube feedings. Abdomen is soft. He seems to have resolved his pancreatitis. There is no need for surgical intervention. Judah Madison MD Dec 09, 2016 15:04
[2016-12-09 16:19] VITALS: BP 125/85
[2016-12-09 20:14] VITALS: BP 125/73
--- NOTE | 2016-12-09 22:56 | Pulmonology Progress Note ---
Assessment/Plan Problems: (1) Coffee ground vomiting (2) Coagulopathy (3) Sepsis (4) Acute pancreatitis (5) Limited mobility in bed (6) Feeding by G-tube (7) Choledocholithiasis (8) Dementia Assessment/Plan wbc still high amylase decreasing MRI of abdomen noted continue abx for bacteremia. Heart rate controlled. may go to med/surg. Subjective ROS Limited/Unobtainable: No Constitutional: Reports: anorexia, fatigue Gastrointestinal/Abdominal: Reports: blood in stool, nausea, vomiting Neurologic: Reports: confusion, weakness Allergies: Coded Allergies: No Known Allergies (Verified , 12/27/08) Objective Last 24 Hour Vital Signs Date Time Temp Pulse Resp B/P Pulse Ox O2 Delivery O2 Flow Rate FiO2 12/09/16 20:14 98.1 92 18 125/73 98 Venturi Mask 15.0 12/09/16 19:58 96 Venturi Mask 14.0 55 12/09/16 19:58 Venturi Mask 14.0 55 12/09/16 16:19 96.8 93 19 125/85 97 Venturi Mask 15.0 12/09/16 12:46 Venturi Mask 14.0 55 12/09/16 12:46 97 Venturi Mask 14.0 55 12/09/16 12:00 98.2 84 18 149/69 100 Non-Rebreather 15.0 12/09/16 08:00 99.7 83 20 125/77 100 Non-Rebreather 15.0 12/09/16 04:00 98.2 88 22 115/64 98 Venturi Mask 15.0 12/09/16 00:00 98.1 89 22 104/65 98 Venturi Mask 15.0 Intake and Output 12/08/16 12/09/16 19:00 07:00 Intake Total 965 ml 1755.0 ml Output Total 1100 ml 200 ml Balance -135 ml 1555.0 ml Intake Free Water 190 ml 190 ml IV Total 170 ml 960.0 ml Tube Feeding 605 ml 605 ml Output Urine Total 1100 ml 200 ml # Bowel Movements 1 1 General Appearance: no acute distress HEENT: normocephalic, atraumatic, PERRL Respiratory/Chest: chest wall non-tender, decreased breath sounds, accessory muscle use Cardiovascular: normal peripheral pulses, normal rate, regular rhythm, no JVD Abdomen: hyperactive bowel sounds, distended, guarding, tender, rebound tenderness Extremities: no cyanosis Skin: no rash Neurologic/Psychiatric: cloth baler II-XII grossly normal, responsive, disoriented Laboratory Tests 12/09/16 09:00: Prothrombin Time 11.6H, Prothromb Time International Ratio 1.1 Current Medications Medications (Trade) Dose Ordered Sig/Jamaal Route PRN Reason Start Time Stop Time Status Last Admin Dose Admin Acetaminophen (Tylenol) 650 mg Q4H PRN ORAL Fever>100.5 12/03/16 18:00 01/02/17 17:59 Clonidine HCl (Catapres) 0.1 mg Q8H PRN GT sbp> 160 12/03/16 18:00 01/02/17 17:59 Dextrose (D5W 1000ml) 1,000 ml @ 85 mls/hr [id number] IV 12/03/16 18:30 01/02/17 18:29 12/09/16 13:39 Dextrose (Dextrose 50%) STAT PRN IV Hypoglycemia 12/03/16 18:00 01/02/17 17:59 Insulin Aspart (NovoLOG) EVERY 6 HOURS SUBQ 12/04/16 00:00 01/03/17 00:00 12/09/16 17:35 Insulin Detemir (Levemir) 16 units Q12HR SUBQ 12/09/16 21:00 01/08/17 20:59 12/09/16 20:22 Lorazepam (Ativan 2mg/ml 1ml) 2 mg Q2H PRN IV agitation 12/03/16 18:00 12/10/16 17:59 Morphine Sulfate (Morphine Sulfate) 4 mg Q4H PRN IVP Severe Pain (Pain Scale 7-10) 12/03/16 18:00 12/10/16 17:59 12/07/16 17:47 Nitroglycerin (Ntg) 0.4 mg Q5M PRN SL Prn Chest Pain 12/03/16 18:00 01/02/17 17:59 Ondansetron HCl (Zofran) 4 mg Q6H PRN IVP Nausea & Vomiting 12/03/16 18:00 01/02/17 17:59 Pantoprazole (Protonix) 40 mg DAILY IVP 12/04/16 09:00 01/03/17 08:59 12/09/16 09:00 Piperacillin Sod/ Tazobactam Sod/ Sodium Chloride (Zosyn/Sodium Chloride) 110 ml @ 27.5 mls/hr Q8HR IVPB 12/04/16 22:00 12/11/16 21:59 12/09/16 21:13 Polyethylene Glycol 17 gm 17 gm DAILYPRN PRN ORAL Constipation 12/03/16 18:00 01/02/17 17:59 SONIA ALBERTS Dec 09, 2016 22:56
[2016-12-10] VITALS: BP 139/80
[2016-12-10] MEDS: NovoLOG Insulin Flexpen SUBQ SCH ×3 (00:08→12:00)
[2016-12-10 03:59] VITALS: BP 113/73
[2016-12-10] MEDS: Piperacillin/Tazobactam 3.375 GM in NS 110 ML IVPB SCH (04:57)
[2016-12-10 08:00] VITALS: BP 131/73
--- NOTE | 2016-12-10 09:26 | General Progress Note ---
Assessment/Plan Status: unchanged, deteriorating Status Narrative now DNR DNI Assessment/Plan Acute renal failure due to sepsis , low BP , GI bleed Sepsis Hyperglycemia Choledocholithiasis Aspiration into lower respiratory tract coagulopathy 2 to anticoagulation use hx of At fib hx of CVA seizure disorder pressure ulcer dysphagia, G tube HTN elevated LFTs, declining Plan: No labs today- Hydrate- D5 Stop Depakote, high LFTs, check level Avoid Nephrotoxics Monitor renal parameters and H&h Urine studies stop Norvasc and cardura for low bp Per orders Subjective ROS Limited/Unobtainable: Yes Allergies: Coded Allergies: No Known Allergies (Verified , 12/27/08) Objective Last 24 Hour Vital Signs Date Time Temp Pulse Resp B/P Pulse Ox O2 Delivery O2 Flow Rate FiO2 12/10/16 03:59 97.8 78 18 113/73 100 Simple Mask 15.0 12/10/16 00:00 98.2 87 22 139/80 100 Simple Mask 15.0 12/09/16 20:14 98.1 92 18 125/73 98 Venturi Mask 15.0 12/09/16 19:58 96 Venturi Mask 14.0 55 12/09/16 19:58 Venturi Mask 14.0 55 12/09/16 16:19 96.8 93 19 125/85 97 Venturi Mask 15.0 12/09/16 12:46 Venturi Mask 14.0 55 12/09/16 12:46 97 Venturi Mask 14.0 55 12/09/16 12:00 98.2 84 18 149/69 100 Non-Rebreather 15.0 Intake and Output 12/09/16 12/10/16 19:00 07:00 Intake Total 1000.0 ml 872.5 ml Output Total 600 ml 1600 ml Balance 400.0 ml -727.5 ml Intake Free Water 230 ml IV Total 110.0 ml 707.5 ml Tube Feeding 660 ml 165 ml Output Urine Total 600 ml 1600 ml # Bowel Movements 1 Height (Feet): 5 Height (Inches): 7.00 Weight (Pounds): 221 General Appearance: no apparent distress Objective other physical exam not changed ALONDRA FULTON Dec 10, 2016 09:26
[2016-12-10] MEDS: Pantoprazole Inj IVP SCH (10:17)
[2016-12-10] MEDS: Levemir Flexpen SUBQ SCH (10:20)
[2016-12-10 11:55] VITALS: BP 116/69
--- NOTE | 2016-12-10 11:57 | General Progress Note ---
Assessment/Plan Problem List: (1) Gallstone pancreatitis ICD Codes: K85.10 - Biliary acute pancreatitis without necrosis or infection SNOMED: 92913092 (2) Dementia ICD Codes: F03.90 - Unspecified dementia without behavioral disturbance SNOMED: 63063277 Qualifiers: Qualified Codes: F01.50 - Vascular dementia without behavioral disturbance (3) Gastrojejunostomy tube dislodgement (4) DKA, type 1 ICD Codes: E10.10 - Type 1 diabetes mellitus with ketoacidosis without coma SNOMED: 31335319, 585462983 (5) Feeding by G-tube ICD Codes: Z93.1 - Feeding by G-tube SNOMED: 793933302 (6) Anemia ICD Codes: D64.9 - Anemia SNOMED: 153411039 Assessment/Plan improving labs MRCP no CBD stone ? passed CBD stone GTF fu lfts repeat stool ob>>> neg Subjective ROS Limited/Unobtainable: No Allergies: Coded Allergies: No Known Allergies (Verified , 12/27/08) Subjective no event Objective Last 24 Hour Vital Signs Date Time Temp Pulse Resp B/P Pulse Ox O2 Delivery O2 Flow Rate FiO2 12/10/16 08:00 97.9 80 20 131/73 99 Venturi Mask 14.0 55 12/10/16 03:59 97.8 78 18 113/73 100 Simple Mask 15.0 12/10/16 00:00 98.2 87 22 139/80 100 Simple Mask 15.0 12/09/16 20:14 98.1 92 18 125/73 98 Venturi Mask 15.0 12/09/16 19:58 96 Venturi Mask 14.0 55 12/09/16 19:58 Venturi Mask 14.0 55 12/09/16 16:19 96.8 93 19 125/85 97 Venturi Mask 15.0 12/09/16 12:46 Venturi Mask 14.0 55 12/09/16 12:46 97 Venturi Mask 14.0 55 12/09/16 12:00 98.2 84 18 149/69 100 Non-Rebreather 15.0 Intake and Output 12/09/16 12/10/16 19:00 07:00 Intake Total 1000.0 ml 1012.5 ml Output Total 600 ml 1600 ml Balance 400.0 ml -587.5 ml Intake Free Water 230 ml IV Total 110.0 ml 792.5 ml Tube Feeding 660 ml 220 ml Output Urine Total 600 ml 1600 ml # Bowel Movements 1 Height (Feet): 5 Height (Inches): 7.00 Weight (Pounds): 221 General Appearance: no apparent distress EENT: normal ENT inspection Neck: supple Cardiovascular: normal rate Respiratory/Chest: decreased breath sounds Abdomen: normal bowel sounds, non tender, soft Extremities: non-tender FLOYD MARIANO Dec 10, 2016 11:57
--- NOTE | 2016-12-10 12:30 | General Progress Note ---
Assessment/Plan Problem List: (1) Hyperglycemia ICD Codes: R73.9 - Hyperglycemia, unspecified SNOMED: 83312068 (2) FABIOLA (acute kidney injury) ICD Codes: N17.9 - Acute kidney failure, unspecified SNOMED: 79169105 (3) Choledocholithiasis ICD Codes: K80.50 - Calculus of bile duct without cholangitis or cholecystitis without obstruction SNOMED: 613190650 (4) Pressure ulcer ICD Codes: L89.90 - Pressure ulcer SNOMED: 254843702 (5) Fever ICD Codes: R50.9 - Fever SNOMED: 170410474 (6) Anemia ICD Codes: D64.9 - Anemia SNOMED: 841588106 (7) Cellulitis ICD Codes: L03.90 - Cellulitis SNOMED: 260245750 (8) Seizure disorder ICD Codes: G40.909 - Seizure disorder SNOMED: 696678709 (9) Sepsis ICD Codes: A41.9 - Sepsis, unspecified organism SNOMED: 38680493 Qualifiers: Qualified Codes: A41.9 - Sepsis, unspecified organism (10) Venous stasis ulcers ICD Codes: I83.009 - Venous stasis ulcers SNOMED: 055231601 (11) Bilateral lower extremity edema (12) Dementia ICD Codes: F03.90 - Unspecified dementia without behavioral disturbance SNOMED: 34583863 Qualifiers: Qualified Codes: F01.50 - Vascular dementia without behavioral disturbance (13) Coffee ground vomiting ICD Codes: K92.0 - Hematemesis SNOMED: 52260155 (14) Leukocytosis ICD Codes: D72.829 - Elevated white blood cell count, unspecified SNOMED: 668649266, 263542027 (15) UTI (urinary tract infection) ICD Codes: N39.0 - Urinary tract infection, site not specified SNOMED: 89893596 Status: progressing Assessment/Plan agree with comfort care/dnr dc back to snf no isolation [id number] comfrort care Subjective ROS Limited/Unobtainable: Yes Allergies: Coded Allergies: No Known Allergies (Verified , 12/27/08) Objective Last 24 Hour Vital Signs Date Time Temp Pulse Resp B/P Pulse Ox O2 Delivery O2 Flow Rate FiO2 12/10/16 11:55 97.9 80 20 116/69 95 Venturi Mask 14.0 55 12/10/16 08:00 97.9 80 20 131/73 99 Venturi Mask 14.0 55 12/10/16 03:59 97.8 78 18 113/73 100 Simple Mask 15.0 12/10/16 00:00 98.2 87 22 139/80 100 Simple Mask 15.0 12/09/16 20:14 98.1 92 18 125/73 98 Venturi Mask 15.0 12/09/16 19:58 96 Venturi Mask 14.0 55 12/09/16 19:58 Venturi Mask 14.0 55 12/09/16 16:19 96.8 93 19 125/85 97 Venturi Mask 15.0 12/09/16 12:46 Venturi Mask 14.0 55 12/09/16 12:46 97 Venturi Mask 14.0 55 Intake and Output 12/09/16 12/10/16 19:00 07:00 Intake Total 1000.0 ml 1012.5 ml Output Total 600 ml 1600 ml Balance 400.0 ml -587.5 ml Intake Free Water 230 ml IV Total 110.0 ml 792.5 ml Tube Feeding 660 ml 220 ml Output Urine Total 600 ml 1600 ml # Bowel Movements 1 Height (Feet): 5 Height (Inches): 7.00 Weight (Pounds): 221 General Appearance: confused Aliza Faria MD Dec 10, 2016 12:30
--- NOTE | 2016-12-10 14:38 | Wound Care Consultation ---
Wound Assessment Wound Assessment #1: Wound Number: #1 Wound Present on Admission: Yes New Wound: No Status Change of Wound: No Wound Location Body Site Modif: mid Wound Location Body Site: other - forehead Wound Type: other - abrasion. Cachorro Test: Does not Cachorro Wound Thickness: Partial Thickness Wound Length: 1.5 Wound Width: 0.5 Wound Depth: <0.1 Percent of Wound Maskell/Red: 100 Wound Drainage Amount: None Wound Drainage Odor: None/Absent Tissue Surrounding Wound: Erythemic Wound General Appearance: Reddened, Clean/Dry Wound Assessment #2: Wound Number: #2 Wound Present on Admission: Yes New Wound: No Status Change of Wound: No Wound Location Body Site Modif: mid Wound Location Body Site: sacral - extending to left buttocks Wound Type: scar - full thickness scar tissue Cachorro Test: Does not Cachorro Wound Thickness: Full Thickness Wound Length: 5.0 Wound Width: 3.0 Wound Depth: utd Percent of Wound Maskell/Red: 100 - scar tissue intact. Wound Drainage Amount: None Wound Drainage Odor: None/Absent Tissue Surrounding Wound: Intact Wound General Appearance: Open to air, Clean/Dry Wound Assessment #3: Wound Number: #3 Wound Present on Admission: Yes New Wound: No Status Change of Wound: No Wound Location Body Site Modif: right, lower, lateral Wound Location Body Site: leg Wound Type: scar Cachorro Test: Does not Cachorro Wound Thickness: Full Thickness Wound Length: 8.0 Wound Width: 2.0 Wound Depth: utd Percent of Wound Maskell/Red: 100 - full thickness scar tissue. Wound Drainage Amount: None Wound Drainage Odor: None/Absent Tissue Surrounding Wound: Intact Wound General Appearance: Clean/Dry Wound Assessment #4: Wound Number: #4 Wound Present on Admission: No New Wound: Yes Status Change of Wound: Yes Wound Location Body Site Modif: right Wound Location Body Site: ear - top of ear. Wound Type: pressure ulcer Cachorro Test: Does not Cachorro Pressure Ulcer Stage: II - noted stage I progress to stage II with superficial scab forming to site, 100 % pink wound bed Wound Length: 0.5 Wound Width: 0.5 Wound Depth: <0.1 Percent of Wound Maskell/Red: 100 Wound Drainage Amount: None Wound Drainage Odor: None/Absent Tissue Surrounding Wound: Erythemic Wound General Appearance: Reddened, Clean/Dry Wound Assessment #5: Wound Number: #5 Wound Present on Admission: No New Wound: Yes Status Change of Wound: No Wound Location Body Site Modif: left Wound Location Body Site: ear - top of ear Wound Type: pressure ulcer Cachorro Test: Does not Cachorro Pressure Ulcer Stage: II - drying with superficial scab forming. Wound Thickness: Partial Thickness Wound Length: 0.5 Wound Width: 0.5 Wound Depth: <0.1 Percent of Wound Maskell/Red: 100 Wound Drainage Amount: None Wound Drainage Odor: None/Absent Tissue Surrounding Wound: Erythemic Wound General Appearance: Reddened, Clean/Dry Wound Comment #1 Sacral full thickness scar tissue extends to left buttock.- skin remains intact. #2 Right lower lateral leg full thickness scar tissue.- skin remains intact. #3 Right top of ear redness now stage II drying with scab superficial.- cleanse with normal saline, pat dry, apply TRIAD , apply 4x4 gauze, secure with tape DAILY and PRN if soiled/dislodged. #4 Left top of ear pressure ulcer stage II drying with superficial scab forming. - cleanse with normal saline, pat dry, apply TRIAD, apply 4x4 gauze, secure with tape DAILY and PRN if soiled/dislodged. #5 Mid lower forehead abrasion.- noted good progress skin is dry. Recommendation. -Local wound care as ordered. -APPLY 4X4 GAUZE TO O2 MASK AROUND EARS TO PROVIDE CUSHION. -Keep clean and dry. -Optimize nutrition. -Heel protectors. -Offload heels, feet, sacral. -Turn and reposition. -Assess and notify MD for any changes of condition to skin. JO ABBOTT Dec 10, 2016 14:37
[2016-12-10] MEDS ORDERED: WARFARIN SODIUM1 MG ORAL (15:22)
--- NOTE | 2016-12-10 15:30 | Cardiac Electrophysiology PN ---
Assessment/Plan Assessment/Plan 1. Sinus tachycardia due to sepsis and dehydration. Improved 2. Paroxysmal atrial fibrillation.Off Coumadin for GI bleed. Off of any AV teodora jacinto. Echo EF 40% 3. Sepsis. On broad-spectrum antibiotic 4. Status post PEG 5. Hypernatremia and azotemia secondary to dehydration.On iv fluids 6. Coffee-ground emesis. F/U per Dr. Wilson. 7. Billiary Pancreatitis.MRCP no CBD stone? passed CBD stone 8. Bio Ethics done. Now DNR/DNI 9. Going back to [facility] RN Subjective Subjective Nonverbal on Facemask.No event overnight. On iv abx. Bioethics done today. Objective Last 24 Hour Vital Signs Date Time Temp Pulse Resp B/P Pulse Ox O2 Delivery O2 Flow Rate FiO2 12/10/16 11:55 97.9 80 20 116/69 95 Venturi Mask 14.0 55 12/10/16 08:00 97.9 80 20 131/73 99 Venturi Mask 14.0 55 12/10/16 03:59 97.8 78 18 113/73 100 Simple Mask 15.0 12/10/16 00:00 98.2 87 22 139/80 100 Simple Mask 15.0 12/09/16 20:14 98.1 92 18 125/73 98 Venturi Mask 15.0 12/09/16 19:58 96 Venturi Mask 14.0 55 12/09/16 19:58 Venturi Mask 14.0 55 12/09/16 16:19 96.8 93 19 125/85 97 Venturi Mask 15.0 Intake and Output 12/09/16 12/10/16 19:00 07:00 Intake Total 1000.0 ml 1012.5 ml Output Total 600 ml 1600 ml Balance 400.0 ml -587.5 ml Intake Free Water 230 ml IV Total 110.0 ml 792.5 ml Tube Feeding 660 ml 220 ml Output Urine Total 600 ml 1600 ml # Bowel Movements 1 Objective NECK: No JVD. LUNGS: Coarse rhonchi. CARDIOVASCULAR: Nl S1 and S2 with no murmur. ABDOMEN: Soft. G-tube. EXTREMITIES: 1+ pitting edema. BRYON AC Dec 10, 2016 15:30
--- NOTE | 2016-12-10 15:59 | Infectious Diseases Prog Note ---
Assessment/Plan Problems: (1) HCAP (healthcare-associated pneumonia) Assessment & Plan: improved on vancomycin and zosyn, recieved 9 days of vancomycin, and zosyn. will continue zosyn only for now for sepsis and intraabdominal phlegmon treatment, continue to monitor CXR, sputum culture showed no growth , pulmonary is following (2) UTI (urinary tract infection) Assessment & Plan: on zosyn, no urine culture was done (3) Sepsis Assessment & Plan: with Citrobacter diversus which is real , source most likely GI or tract . on zosyn , repeated blood culture is negative so far on 11/30/16 which confirm clearance, will treat with zosyn for two weeks starting from the clearance date . EOT 12/14/16 (4) FABIOLA (acute kidney injury) Assessment & Plan: due to sepsis, continue hydration, avoid nephrotoxic meds (5) Acute pancreatitis Assessment & Plan: complicated with intraabdominal phlegmon , will continue wide spectrum antibiotics therapy, may need ERCP for source control to relief CBD if really obstructed. (6) Cellulitis of abdominal wall Assessment & Plan: due to G tube, S/P removal, already on wide spectrum antibiotics therapy, continue G tube care as needed (7) Gastrojejunostomy tube dislodgement Assessment & Plan: S/P replacement by GI , continue local care Subjective ROS Limited/Unobtainable: Yes Allergies: Coded Allergies: No Known Allergies (Verified , 12/27/08) Subjective he is comfortable, nonverbal , breathing well , doesn't follow commands , not in distress, afebrile. Objective Vital Signs Last 24 Hour Vital Signs Date Time Temp Pulse Resp B/P Pulse Ox O2 Delivery O2 Flow Rate FiO2 12/10/16 11:55 97.9 80 20 116/69 95 Venturi Mask 14.0 55 12/10/16 08:00 97.9 80 20 131/73 99 Venturi Mask 14.0 55 12/10/16 03:59 97.8 78 18 113/73 100 Simple Mask 15.0 12/10/16 00:00 98.2 87 22 139/80 100 Simple Mask 15.0 12/09/16 20:14 98.1 92 18 125/73 98 Venturi Mask 15.0 12/09/16 19:58 96 Venturi Mask 14.0 55 12/09/16 19:58 Venturi Mask 14.0 55 12/09/16 16:19 96.8 93 19 125/85 97 Venturi Mask 15.0 Height (Feet): 5 Height (Inches): 7.00 Weight (Pounds): 221 General Appearance: WD/WN, no acute distress HEENT: normocephalic, atraumatic, anicteric, mucous membranes moist Respiratory/Chest: chest wall non-tender, lungs clear, normal breath sounds, no respiratory distress, no accessory muscle use Cardiovascular: normal peripheral pulses, normal rate, regular rhythm, no gallop/murmur Abdomen: normal bowel sounds, soft, non tender, no organomegaly, non distended , no mass Extremities: no cyanosis, no clubbing Skin: no rash, no lesions Current Medications Medications (Trade) Dose Ordered Sig/Jamaal Route PRN Reason Start Time Stop Time Status Last Admin Dose Admin Acetaminophen (Tylenol) 650 mg Q4H PRN ORAL Fever>100.5 12/03/16 18:00 01/02/17 17:59 Clonidine HCl (Catapres) 0.1 mg Q8H PRN GT sbp> 160 12/03/16 18:00 01/02/17 17:59 Dextrose (Dextrose 50%) STAT PRN IV Hypoglycemia 12/03/16 18:00 01/02/17 17:59 Insulin Aspart (NovoLOG) EVERY 6 HOURS SUBQ 12/04/16 00:00 01/03/17 00:00 12/10/16 12:00 Insulin Detemir (Levemir) 16 units Q12HR SUBQ 12/09/16 21:00 01/08/17 20:59 12/10/16 10:20 Lorazepam (Ativan 2mg/ml 1ml) 2 mg Q2H PRN IV agitation 12/03/16 18:00 12/10/16 17:59 Morphine Sulfate (Morphine Sulfate) 4 mg Q4H PRN IVP Severe Pain (Pain Scale 7-10) 12/03/16 18:00 12/10/16 17:59 12/07/16 17:47 Nitroglycerin (Ntg) 0.4 mg Q5M PRN SL Prn Chest Pain 12/03/16 18:00 01/02/17 17:59 Ondansetron HCl (Zofran) 4 mg Q6H PRN IVP Nausea & Vomiting 12/03/16 18:00 01/02/17 17:59 Pantoprazole (Protonix) 40 mg DAILY IVP 12/04/16 09:00 01/03/17 08:59 12/10/16 10:17 Polyethylene Glycol (Miralax) 17 gm DAILYPRN PRN ORAL Constipation 12/03/16 18:00 01/02/17 17:59 Ariana Acevedo M.D. Dec 10, 2016 15:59
--- NOTE | 2016-12-10 22:47 | General Progress Note ---
Assessment/Plan Assessment/Plan ASSESSMENT: 1. Coagulopathy with supertherapeutic INR - remains elevated, mixing study correct indicating factor deficiency, sepsis 2. Anemia 2/2 chronic disease, is without major changes, hgb >10 3. Leukocytosis secondary to underlying infection with pancreatitis and elevated lipase. 4. A-fibrillation was on coumadin before - currently off it given bleed 5. r/o gastrointestinal bleed. 6. Dysphagia. 7. Dementia. 8. Hyperglycemia. 9. Sepsis. RECS: 1. DNR/DNI today, potentially comfort care 2. Monitor coagulopathy 3. Anemia w/u reviewed, transfuse as needed, hgb goal >7 4. Coumadin on hold given Gi bleed 5. Appreciate GI, pulm, cards recs 6. Antibiotics on prn basis 7. Discussed with staff. 8. Follow from hematology perspective Thank you, Abdifatah Ramirez MD Subjective Constitutional: Reports: no symptoms HEENT: Reports: no symptoms Cardiovascular: Reports: no symptoms Respiratory: Reports: no symptoms Gastrointestinal/Abdominal: Reports: no symptoms Genitourinary: Reports: no symptoms Neurologic/Psychiatric: Reports: no symptoms Endocrine: Reports: no symptoms Hematologic/Lymphatic: Reports: anemia Allergies: Coded Allergies: No Known Allergies (Verified , 12/27/08) Subjective stable, tired, is nonverbal at this time, dnr Objective Last 24 Hour Vital Signs Date Time Temp Pulse Resp B/P Pulse Ox O2 Delivery O2 Flow Rate FiO2 12/10/16 11:55 97.9 80 20 116/69 95 Venturi Mask 14.0 55 12/10/16 08:00 97.9 80 20 131/73 99 Venturi Mask 14.0 55 12/10/16 03:59 97.8 78 18 113/73 100 Simple Mask 15.0 12/10/16 00:00 98.2 87 22 139/80 100 Simple Mask 15.0 Intake and Output 12/09/16 12/10/16 19:00 07:00 Intake Total 1000.0 ml 1012.5 ml Output Total 600 ml 1600 ml Balance 400.0 ml -587.5 ml Intake Free Water 230 ml IV Total 110.0 ml 792.5 ml Tube Feeding 660 ml 220 ml Output Urine Total 600 ml 1600 ml # Bowel Movements 1 Height (Feet): 5 Height (Inches): 7.00 Weight (Pounds): 221 General Appearance: alert EENT: TMs normal Neck: normal alignment Cardiovascular: regular rhythm Respiratory/Chest: normal breath sounds Abdomen: non tender Extremities: normal inspection Edema: 1+ Leg (L), 1+ Leg (R) Edema: mild edema Neurologic: alert Skin: warm/dry Abdifatah Ramirez Dec 10, 2016 22:47
--- NOTE | 2016-12-13 00:38 | Discharge Summary 2 SIG ---
DATE OF ADMISSION: 11/25/2016 DATE OF DISCHARGE: 12/10/2016 REASON FOR ADMISSION: 76-year-old male presented to emergency room from a care home facility with the concern of sepsis. According to the care home facility, the patient had hyperglycemia with blood sugar over 500. The patient was given insulin and was sent for evaluation for possible sepsis. Workup in the emergency room revealed fever, tachypnea, tachycardia, temperature 101.8 , heart rate 111, and respiration rate 26. The patient was placed on supplemental oxygen 2 L saturated 92%. Glucose - 544. Noted elevated LFT and bilirubin. Urine negative for ketones. Lactic acid elevated - 3.1. BUN 58, creatinine 1.4, sodium 148, and potassium 5.3. Lipase 1253. ABG on O2 via nasal cannula with metabolic alkalosis. White blood count of 12. Chest x-ray revealed atelectasis, possible small left pleural effusion, and cardiomegaly. CT of the abdomen and pelvis revealed marked wall thickening of the duodenum, infiltration of the peripancreatic duodenal fat fluid and phlegmon extending along the mesenteric root and bilateral paracolic gutters representing primary pancreatitis as reactive changes versus primary duodenal pathology, cholelithiasis, dilated common bile duct, diverticulosis but no evidence of diverticulitis, and bilateral lower lobe pulmonary parenchymal disease, likely combination of acute infiltrates and chronic progressive fibrotic changes. Patient was admitted for further management. ADMITTING DIAGNOSES: 1. Sepsis. 2. Hyperglycemia. 3. Acute renal failure/ Acute kidney injury. 4. Possible choledocholithiasis. 5. Aspiration. HOSPITAL STAY: The patient was started on antibiotics. Initial blood culture with Citrobacter. Repeated blood culture negative. Sputum culture negative. Urine culture not sent. ID followed. Antibiotics optimized as per ID recommendation. Supplemental oxygen and pulmonary toilet provided as needed. Pulmonology followed. Follow up chest x-ray without significant changes. GI and surgery consult were requested. Surgeon recommended no surgical procedures at this time, but when more stable recommended to have MRCP and then if needed ERCP. GI followup. MRCP subsequently was done, which revealed no common bile duct dilatation, questionably the patient already passed the stone. Lipase trending down to normal. LFT trending down. Hemoglobin and hematocrit stable , at the baseline. Laboratory work overall better. Stool OB was negative. According to GI, the patient likely had a common bile stone, which he passed, but no need for endoscopic retrograde cholangiopancreatography at this time. Creeler followed the patient. IV fluids provided. According to garment parts cutter hand, acute renal failure, likely multifactorial etiology secondary to sepsis, hypertension, and gastrointestinal bleeding. Renal parameters were improving, creatinine down to 1.8, sodium down to 149, and BUN down to 37 upon discharge. Blood sugar was managed with sliding scale of insulin. Development Trainer seen the patient for consultation. Hemoglobin A1c - 7.0, at goal. Hyperglycemia likely secondary to sepsis; however, no evidence of diabetic ketoacidosis. The patient initially with evidence of coagulopathy, secondary to Coumadin use. One unit of fresh frozen plasma provided. INR from 4.2 down to 1.1 Coumadin at that time was placed on hold. The patient with a history of paroxysmal atrial fibrillation. Supervisor Acoustical Tile Carpenters followed. Coumadin stopped secondary to gastrointestinal bleeding. The patient also off any AV teodora blockers. Per delicatessen slicer, sinus tachycardia, likely secondary to dehydration and sepsis, and it was improving. Blood sugar remained on the baseline. According to GI, the patient has gallstone pancreatitis, but MRCP revealed no evidence of choledocholithiasis. Laboratory work improving. G-tube was replaced. Continue local wound care. The patient has seizure disorder. This patient was on Depakote. No seizure activity while at the hospital. Depakote at some point was held due to the elevated LFTs. Closely monitored LFTs. The patient also with evidence of abdominal wall cellulitis, status post treatment. Echocardiogram revealed ejection fraction of 40%. Code status changed to DNR / DNI on 12/09. The patient discharged to the care home facility. DISCHARGE DIAGNOSES: 1. Sepsis. 2. Healthcare-associated pneumonia versus aspiration pneumonia. 3. Urinary tract infection. 4. Abdominal wall cellulitis. 5. Gallstone pancreatitis. 6. Cholelithiasis. 7. Coagulopathy secondary to anticoagulation use, resolved. 8. Paroxysmal atrial fibrillation. 9. Anemia. 10. Sinus tachycardia. 11. Acute renal failure. 12. Hypernatremia. 13. Dysphagia, status post percutaneous endoscopic gastrostomy. 14. Status post dislodgement of G-tube. 15. Seizure disorder. DISCHARGE MEDICATIONS: See medication reconciliation list. DISCHARGE INSTRUCTIONS: The patient was discharged to care home facility. The patient was on comfort measures . FOLLOWUP: Follow up with medical doctor at the facility. Aliza Faria M.D. I have been assigned to dictate discharge summary on this account and I was not involved in the patient's management. Yahaira Villanuevapenelope NFelipa DR: LETICIA JOB#: [id number] CC: JOSE CARLOS
== END 2016-12-10 16:12 | DRG 871 ==
LOC: EDBD 21:18 → EMR 21:47 → 2E 21:48 → EDBEDREQSVC 11-26 00:32 → EDBEDREQ 11-26 00:32 → ICU 11-26 12:11 → 2W 11-28 12:40 → 2E 11-30 09:07 → 4W 12-03 16:51
PROC: 30233K1 Transfusion of Nonautologous Frozen Plasma into Peripheral Vein, Percutaneous Approach (ICD-10-PCS; principal; 2016-11-26)
PROC: 0D2DXUZ Change Feeding Device in Lower Intestinal Tract, External Approach (ICD-10-PCS; 2016-12-05)
DX: A41.9 Sepsis, unspecified organism (principal); J18.9 Pneumonia, unspecified organism; J69.0 Pneumonitis due to inhalation of food and vomit; K65.1 Peritoneal abscess; N17.9 Acute kidney failure, unspecified; E87.0 Hyperosmolality and hypernatremia; K85.10 Biliary acute pancreatitis without necrosis or infection; N39.0 Urinary tract infection, site not specified; L03.311 Cellulitis of abdominal wall; K92.2 Gastrointestinal hemorrhage, unspecified; R47.01 Aphasia; Z43.1 Encounter for attention to gastrostomy; I48.0 Paroxysmal atrial fibrillation; E11.65 Type 2 diabetes mellitus with hyperglycemia; R13.10 Dysphagia, unspecified; I10 Essential (primary) hypertension; E86.0 Dehydration; Z79.01 Long term (current) use of anticoagulants; K80.70 Calculus of gallbladder and bile duct without cholecystitis without obstruction; D64.9 Anemia, unspecified; R00.0 Tachycardia, unspecified; G40.909 Epilepsy, unspecified, not intractable, without status epilepticus; Z86.73 Personal history of transient ischemic attack (TIA), and cerebral infarction without residual deficits; K57.90 Diverticulosis of intestine, part unspecified, without perforation or abscess without bleeding; E78.5 Hyperlipidemia, unspecified; T45.515A Adverse effect of anticoagulants, initial encounter; I87.2 Venous insufficiency (chronic) (peripheral); D63.8 Anemia in other chronic diseases classified elsewhere; F01.50 Vascular dementia, unspecified severity, without behavioral disturbance, psychotic disturbance, mood disturbance, and anxiety; K29.80 Duodenitis without bleeding; Z66 Do not resuscitate; L89.812 Pressure ulcer of head, stage 2
CPT/HCPCS: 36415; 36600; 71010; 74176; 74181; 80048; 80053; 80061; 80076; 80164; 80202; 81003; 82009; 82150; 82248; 82270; 82550; 82803; 82962; 82977; 83036; 83540; 83550; 83605; 83690; 83735; 83880; 84100; 84439; 84443; 84550; 85007; 85025; 85060; 85610; 85611; 85730; 86140; 86301; 86850; 86900; 86901; 86927; 87040; 87070; 87075; 87081; 87181; 87205; 93005; 93306; 93970; 94664; 94760; J1815; J2405; J7620; S5561

== ENCOUNTER 2017-04-09 14:30 | Emergency (ER) | payer MEDICARE, MEDICAID ==
[~2017-04-09] VITALS: Ht 170.2 cm; Wt 74.8 kg
[~2017-04-09 14:30] MED LIST changes: +ATORVASTATIN CA20 MG GT; -Lidocaine 1% MPF 10mg/ml 5ml ONE; +PANTOPRAZOLE SO40 MG ORAL; +TAMSULOSIN HCL0.4 MG ORAL; +TRAMADOL HCL50 MG GT; -TRAMADOL HCL50 MG ORAL; -Vancomycin 1gm inj IVPB ONE; +WARFARIN SODIUM1 MG GT; +WARFARIN SODIUM3 MG ORAL; -Zosyn 3.375gm inj ONE
--- NOTE | 2017-04-09 15:30 | Emergency Room Report ---
History of Present Illness General Chief Complaint: Malfunctioning Gastric Tube Source: Patient Present Illness HPI This patient presents for malfunctioning G-tube. He presents from a [facility]dc facility. There are no other complaints. Allergies: Coded Allergies: No Known Allergies (Verified , 12/27/08) Patient History Past Medical History: see triage record, DM, HTN, MD, CAD, CHF, AFib, GERD, CVA /TIA, seizures, psych hx, other - HCV Past Surgical History: other - G-tube Social History: Denies: alcohol use, drug use, smoking Reviewed Nursing Documentation: PMH: Agreed, PSxH: Agreed Nursing Documentation-PMH Hx Cardiac Problems: Yes Hx Hypertension: Yes Hx Diabetes: Yes Hx Cancer: No Hx Gastrointestinal Problems: Yes History Of Psychiatric Problem: Yes Hx Neurological Problems: Yes Hx Cerebrovascular Accident: Yes Hx Dementia: Yes Hx Encephalitis: Yes Hx Seizures: Yes Hx Aphasia: Yes Hx Dysphasia: Yes Hx Weakness: Yes Review of Systems All Other Systems: limited Physical Exam Vital Signs Date Time Temp Pulse Resp B/P Pulse Ox O2 Delivery O2 Flow Rate FiO2 04/09/17 14:32 98.8 63 16 128/77 98 Room Air Sp02 EP Interpretation: reviewed, normal General Appearance: no apparent distress, alert, GCS 15, non-toxic Head: normocephalic, atraumatic ENT: normal pharynx, no angioedema Neck: full range of motion Respiratory: no respiratory distress, no retraction, no accessory muscle use Gastrointestinal: normal bowel sounds, non tender, soft, non-distended, no guarding, no rebound, other - Old G-tube in place Rectal: deferred Neurologic: alert, responsive, other - At baseline, non-verbal Psychiatric: mood/affect normal Skin: normal color, no rash, warm/dry, well hydrated Medical Decision Making Diagnostic Impression: Primary Impression: Malfunction of percutaneous endoscopic gastrostomy (PEG) tube ER Course This patient presents for G-tube replacement. The G-tube was replaced in the typical manner without complication or incident. A KUB was obtained which showed Gastrografin consistent with appropriate placement in the stomach. The patient was returned to the fdc facility. Other X-Ray Diagnostic Results Other X-Ray Diagnostic Results : X-Ray ordered: KUB # of Views/Limited Vs Complete: 1 View Indication: Other - Tube placement Interpretation: other - c/w G-tube in stomach Impression: Other - c/w G-tube in stomach Last Vital Signs Date Time Temp Pulse Resp B/P Pulse Ox O2 Delivery O2 Flow Rate FiO2 04/09/17 14:32 98.8 63 16 128/77 98 Room Air Status: improved Disposition: HOME, SELF-CARE Condition: Improved Patient Instructions: Gastrostomy Tube Home Guide, Adult RIVKA SORIANO D.O. Apr 09, 2017 15:30
--- NOTE | 2017-04-09 16:10 | Diagnostic Imaging Report ---
Indication: TUBE PLCMT status post gastrostomy tube replacement Technique: Supine view of the abdomen after injection of water-soluble contrast into gastrostomy Comparison: 02/26/2015 Findings: Contrast opacifies the stomach. No contrast extravasation is demonstrated. The bowel gas pattern is unremarkable. Impression: Satisfactory position of gastrostomy tube
[2017-04-09 17:21] LABS: MEAN CORPUSCULAR HEMOGLOBIN 34.4 PG (27.0-31.0); MEAN CORPUSCULAR VOLUME 98 FL (80-99); MEAN PLATELET VOLUME 7.9 FL (6.5-10.1); PLATELET COUNT 94 K/UL (150-450); RED BLOOD COUNT 3.64 M/UL (4.70-6.10); RED CELL DISTRIBUTION WIDTH 14.7 % (11.6-14.8); WHITE BLOOD COUNT 6.5 K/UL (4.8-10.8)
[2017-04-09 17:39] LABS: INR 2.2 (0.9-1.1); PROTHROMBIN TIME 21.9 SEC (9.30-11.50)
[2017-04-09 17:45] LABS: ALANINE AMINOTRANSFERASE 6 U/L (3-41); ALBUMIN/GLOBULIN RATIO 0.5 (1.0-2.7); ASPARTATE AMINO TRANSFERASE 14 U/L (5-40); CALCIUM 8.9 mg/dL (8.6-10.2); CARBON DIOXIDE 27 mEQ/L (20-30); CREATININE 0.7 mg/dL (0.7-1.2); HEMOLYSIS 3; TOTAL PROTEIN 7.7 g/dL (6.6-8.7)
[2017-04-09 17:46] LABS: ANION GAP 8 (5-15); CHLORIDE 102 mEQ/L (98-107); POTASSIUM 4.2 mEQ/L (3.4-4.9); SODIUM 137 mEQ/L (135-145)
[2017-04-09] MEDS ORDERED: CALCIUM500 M2 GT (17:54)
[2017-04-09] MEDS ORDERED: CARDURA1 MG GT (17:54)
[2017-04-09] MEDS ORDERED: FLEET ENEMA133 ML RECTAL (17:56)
[2017-04-09] MEDS ORDERED: BISACODYL10 M1 RC (17:56)
[2017-04-09] MEDS ORDERED: METOPROLOL TART25 MG GT (18:02)
[2017-04-09] MEDS ORDERED: OMEPRAZOLE20 M2 ORAL (18:02)
[2017-04-09] MEDS ORDERED: MILK OF MA400 MG/51 ORAL (18:02)
[2017-04-09] MEDS ORDERED: POTASSIUM40 MEQ/11 PO (18:02)
[2017-04-09] MEDS ORDERED: PRO-STAT LIQUID30 ML GT (18:03)
[2017-04-09] MEDS ORDERED: TAMSULOSIN HCL0.4 MG GT (18:13)
[2017-04-09] MEDS ORDERED: ZINC SULFATE220 M1 GT (18:15)
[2017-04-09 18:19] VITALS: BP 121/71
[2017-04-09 18:50] LABS: BAND NEUTROPHILS % (MANUAL) 4 % (0-8); BASOPHILS % (MANUAL) 1 % (0-2); EOSINOPHILS % (MANUAL) 2 % (0-3); LYMPHOCYTES % (MANUAL) 44 % (20-45); NEUTROPHILS % (MANUAL) 38 % (45-75); PLATELET ESTIMATE DECREASED; PLATELET MORPHOLOGY NORMAL; TOTAL CELLS COUNTED 100
[2017-04-09 20:40] VITALS: BP 158/92
[2017-04-09 20:53] VITALS: BP 158/92
== END 2017-04-09 20:40 | disposition home or self-care (01) ==
LOC: EDBD 14:30 → EMR 15:55
DX: K94.23 Gastrostomy malfunction (principal); E11.9 Type 2 diabetes mellitus without complications; I10 Essential (primary) hypertension; Z86.73 Personal history of transient ischemic attack (TIA), and cerebral infarction without residual deficits; F03.90 Unspecified dementia, unspecified severity, without behavioral disturbance, psychotic disturbance, mood disturbance, and anxiety
CPT/HCPCS: 36415; 43760; 74000; 80053; 85007; 85025; 85610; 85730

== ENCOUNTER 2018-03-31 12:29 | Inpatient (IN) | payer MEDICARE, MEDICAID ==
[~2018-03-31] VITALS: Ht 180.3 cm; Wt 111.1 kg
[~2018-03-31 12:29] MED LIST changes: +BISACODYL10 M1 RC; +CALCIUM500 M2 GT; +COLACE100 MG GT; +METOPROLOL TART25 MG GT; +MILK OF MA400 MG/51 ORAL; +NORVASC2.5 MG GT; +OMEPRAZOLE20 M2 ORAL; +PANTOPRAZOLE SO40 MG GT; +PHOSPHA 250 NE250 M1 GT; +POTASSIUM40 MEQ/11 PO; +PRO-STAT LIQUID30 ML GT; +TAMSULOSIN HCL0.4 MG GT; +ZINC SULFATE220 M1 GT
[2018-03-31 12:37] VITALS: BP 133/79
[2018-03-31 14:17] LABS: BASOPHILS % (AUTO) 0.8 % (0.0-2.0); EOSINOPHILS % (AUTO) 3.3 % (0.0-3.0); HEMOGLOBIN 11.9 G/DL (14.2-18.0); LYMPHOCYTES % (AUTO) 44.7 % (20.0-45.0); MEAN CORPUSCULAR VOLUME 99 FL (80-99); MONOCYTES % (AUTO) 9.6 % (1.0-10.0); NEUTROPHILS % (AUTO) 41.6 % (45.0-75.0); PLATELET COUNT 178 K/UL (150-450); RED BLOOD COUNT 3.63 M/UL (4.70-6.10); RED CELL DISTRIBUTION WIDTH 13.7 % (11.6-14.8); WHITE BLOOD COUNT 8.2 K/UL (4.8-10.8)
[2018-03-31 14:30] LABS: ANION GAP 6 mmol/L (5-15); BLOOD UREA NITROGEN 25 mg/dL (7-18); CALCIUM 8.7 MG/DL (8.5-10.1); CARBON DIOXIDE 30 MMOL/L (21-32); CHLORIDE 104 MMOL/L (98-107); CREATININE 0.9 MG/DL (0.55-1.30); POTASSIUM 4.1 MMOL/L (3.5-5.1); SODIUM 140 MMOL/L (136-145)
[2018-03-31 14:35] LABS: ALANINE AMINOTRANSFERASE 15 U/L (12-78); ALBUMIN 2.3 G/DL (3.4-5.0); ALBUMIN/GLOBULIN RATIO 0.4 (1.0-2.7); ALKALINE PHOSPHATASE 67 U/L (46-116); ASPARTATE AMINO TRANSFERASE 17 U/L (15-37); BILIRUBIN,TOTAL 0.3 MG/DL (0.2-1.0)
[2018-03-31] MEDS ORDERED: Piperacillin/Tazobactam 3.375 GM in NS 110 ML IVPB ONE (15:15)
--- NOTE | 2018-03-31 15:50 | Emergency Room Report ---
History of Present Illness General Chief Complaint: General Complaint Source: Medical Record Present Illness HPI 77-year-old male presents to ED for evaluation. Per nursing staff at SNF patient has leakage from his G-tube. He also noted to have erythema and induration around his G-tube site. Patient is nonverbal, DO NOT RESUSCITATE. Showing no signs of distress upon arrival. No nausea or vomiting. Afebrile. No other aggravating relieving factors. No other associated symptoms Allergies: Coded Allergies: MORPHINE (Unverified Allergy, Unknown, 03/31/18) Patient History Past Medical History: CVA/TIA, dementia, seizures Pertinent Family History: none Social History: Denies: smoking, alcohol use, drug use Immunizations: UTD Reviewed Nursing Documentation: PMH: Agreed; PSxH: Agreed Nursing Documentation-PMH Hx Cardiac Problems: Yes - Heart Failure, Sepsis, Localized Edema, Pneumonitis from Aspirate, anemia Hx Hypertension: Yes - coagulation defect, hepatitis c, exterminator use anticoagulants, hemiplegia,a Hx COPD: Yes Hx Cancer: No Hx Cerebrovascular Accident: Yes Hx Dementia: Yes Hx Encephalitis: Yes Hx Seizures: Yes Hx Aphasia: Yes Hx Dysphasia: Yes Hx Weakness: Yes Review of Systems All Other Systems: limited Physical Exam Vital Signs Date Time Temp Pulse Resp B/P (MAP) Pulse Ox O2 Delivery O2 Flow Rate FiO2 03/31/18 12:19 98.5 76 18 133/79 97 98.4 Sp02 EP Interpretation: reviewed, normal General Appearance: other - nonverbal Head: normocephalic Eyes: bilateral eye normal inspection, bilateral eye PERRL ENT: normal ENT inspection Neck: normal inspection Respiratory: chest non-tender, lungs clear, normal breath sounds, speaking full sentences Cardiovascular #1: regular rate, rhythm, no edema Gastrointestinal: normal bowel sounds, non tender, soft, non-distended, no guarding, no rebound, other - cellulitis around Gtube site Rectal: deferred Genitourinary: no CVA tenderness Musculoskeletal: normal inspection Neurologic: other - nonverbal Psychiatric: other - nonverbal Skin: normal inspection Lymphatic: normal inspection Procedures Additional Procedure Procedure Narrative G-tube placement Patient placed on stretcher. Old G-tube is removed by deflating the balloon using syringe. G-tube site is inspected with no contraindications to G-tube placement. G-tube slowly inserted until resistance is met; G-tube balloon is slowly filled with 20 mL of normal saline and slowly retracted back until resistance is met. G-tube placement is confirmed with KUB study using Gastrografin Medical Decision Making Diagnostic Impression: Primary Impression: Cellulitis at gastrostomy tube site Additional Impression: Gastrojejunostomy tube dislodgement ER Course Hospital Course 77-year-old male presents to ED for infection of G-tube site, also nonfunctioning Gtube Differential Diagnosis - cellulitis, abscess, malfunctioning Gtube, sepsis Clinical course Patient placed on stretcher. After initial history and physical, I ordered labs , blood cultures, IV fluids. I replaced Gtube. KUB confirms Gtube placement with no extravasation Labs reviewed-no leukocytosis, hemoglobin/hematocrit stable, electrolytes okay Abx given. Case discussed with Dr. Faria and he agreed to accept the patient to his service for further care and support Diagnosis - infection of Gastrostomy site , gastrostomy tube dislodgement Admitted to floor in serious condition Labs Test 03/31/18 14:05 03/31/18 15:33 White Blood Count 8.2 K/UL (4.8-10.8) Red Blood Count 3.63 M/UL (4.70-6.10) Hemoglobin 11.9 G/DL (14.2-18.0) Hematocrit 36.0 % (42.0-52.0) Mean Corpuscular Volume 99 FL (80-99) Mean Corpuscular Hemoglobin 32.7 PG (27.0-31.0) Mean Corpuscular Hemoglobin Concent 32.9 G/DL (32.0-36.0) Red Cell Distribution Width 13.7 % (11.6-14.8) Platelet Count 178 K/UL (150-450) Mean Platelet Volume 7.5 FL (6.5-10.1) Neutrophils (%) (Auto) 41.6 % (45.0-75.0) Lymphocytes (%) (Auto) 44.7 % (20.0-45.0) Monocytes (%) (Auto) 9.6 % (1.0-10.0) Eosinophils (%) (Auto) 3.3 % (0.0-3.0) Basophils (%) (Auto) 0.8 % (0.0-2.0) Sodium Level 140 MMOL/L (136-145) Potassium Level 4.1 MMOL/L (3.5-5.1) Chloride Level 104 MMOL/L (98-107) Carbon Dioxide Level 30 MMOL/L (21-32) Anion Gap 6 mmol/L (5-15) Blood Urea Nitrogen 25 mg/dL (7-18) Creatinine 0.9 MG/DL (0.55-1.30) Estimat Glomerular Filtration Rate mL/min (>60) Glucose Level 128 MG/DL (74-106) Lactic Acid Level 1.80 mmol/L (0.4-2.0) Calcium Level 8.7 MG/DL (8.5-10.1) Total Bilirubin 0.3 MG/DL (0.2-1.0) Aspartate Amino Transf (AST/SGOT) 17 U/L (15-37) Alanine Aminotransferase (ALT/SGPT) 15 U/L (12-78) Alkaline Phosphatase 67 U/L (46-116) Total Protein 8.0 G/DL (6.4-8.2) Albumin 2.3 G/DL (3.4-5.0) Globulin 5.7 g/dL Albumin/Globulin Ratio 0.4 (1.0-2.7) Chest X-Ray Diagnostic Results Chest X-Ray Diagnostic Results : Chest X-Ray Ordered: Yes # of Views/Limited/Complete: 1 View Indication: Other - ams EP Interpretation: Yes Interpretation: no consolidation, no effusion, no pneumothorax, no acute cardiopulmonary disease Impression: No acute disease Other X-Ray Diagnostic Results Other X-Ray Diagnostic Results : X-Ray ordered: KUB # of Views/Limited Vs Complete: 1 View Indication: Other - Gtube placement EP Interpretation: Yes Interpretation: nonspecific bowel gas, no sbo, other - Gtube in place. no extravasation Impression: No acute disease Electronically Signed by: Electronically signed by Steve Tang MD Last Vital Signs Date Time Temp Pulse Resp B/P (MAP) Pulse Ox O2 Delivery O2 Flow Rate FiO2 03/31/18 12:37 98.4 76 18 133/79 97 98.4 Status: improved Disposition: ADMITTED INPATIENT Condition: Serious Referrals: Aliza Faria MD (PCP) Steve Tang MD Mar 31, 2018 15:50
[2018-03-31 15:52] VITALS: BP 124/76
[2018-03-31 15:55] LABS: APPEARANCE,URINE CLEAR; BILIRUBIN, URINE NEGATIVE (NEGATIVE); GLUCOSE, URINE (UA) NEGATIVE (NEGATIVE); KETONES,URINE 1+ (NEGATIVE); LEUKOCYTE ESTERASE ,URINE 1+ (NEGATIVE); NITRITE,URINE NEGATIVE (NEGATIVE); PH,URINE 7 (4.5-8.0); PROTEIN,URINE 1+ (NEGATIVE); UROBILINOGEN,URINE 4 MG/DL (0.0-1.0)
[2018-03-31 16:06] LABS: COLOR,URINE YELLOW
[2018-03-31 16:23] LABS: INR 1.8 (0.9-1.1)
--- NOTE | 2018-03-31 17:02 | Diagnostic Imaging Report ---
Indication: Post gastrostomy replacement Technique: Supine view of the abdomen after injection of water-soluble contrast into gastrostomy Comparison: 04/09/2017 Findings: Contrast opacifies the stomach. No contrast extravasation is demonstrated. The bowel gas pattern is unremarkable. Impression: Satisfactory position of gastrostomy tube
--- NOTE | 2018-03-31 17:03 | Diagnostic Imaging Report ---
Indication: Shortness of breath Technique: One view of the chest Comparison: 11/29/2016 Findings: Better inspiration currently. Lungs and pleural spaces are clear. The heart is borderline enlarged. The aorta is very tortuous. There is mild thoracolumbar scoliotic deformity. Impression: No definite acute process
--- NOTE | 2018-03-31 18:17 | GI Initial Consult Note ---
History of Present Illness General Date patient seen: Mar 31, 2018 Time patient seen: 16:00 Reason for Hospitalization: General Complaint Referring physician: VIDYA CONNOLLY Reason for Consultation: GT malfunction Present Illness HPI 77-year-old male presents to ED for evaluation. Per nursing staff at [facility] patient has leakage from his G-tube. He also noted to have erythema and induration around his G-tube site. Patient is nonverbal, DO NOT RESUSCITATE. Showing no signs of distress upon arrival. No nausea or vomiting. Afebrile. No other aggravating relieving factors. No other associated symptoms GI CONSULTED FOR GT MALFUNCTION: Pt was seen in ED, ROS limited. Noted GT 20 fr was changed in ED, confirmed placement with KUB. Site assessed, noted with cellulitis around the GT site. The site presently is still leaking. EGD/PEG was performed in 2015. No transaminitis. Home Meds Reported Medications Zinc Sulfate (ZINC SULFATE*) 220 Mg Capsule, 220 MG GT DAILY, CAP 0 Refills 04/09/17 Tamsulosin Hcl (TAMSULOSIN HCL*) 0.4 Mg Cap.er.24h, 0.4 MG GT BEDTIME, CAP 04/09/17 Amino Acids/Protein Hydrolys (PRO-STAT LIQUID) 30 Ml Liquid.pkt, 30 ML GT DAILY , ML 04/09/17 Potassium Chloride (POTASSIUM CHLORIDE) 40 Meq/15 Ml Liquid, 20 MEQ PO TID, ML 04/09/17 Omeprazole (OMEPRAZOLE) 20 Mg Capsule.dr, 40 MG ORAL DAILY, CAP 04/09/17 Magnesium Hydroxide* (MILK OF MAGNESIA*) 400 Mg/5 Ml Oral.susp, 30 ML ORAL DAILY PRN for Constipation, ML 04/09/17 Metoprolol Tartrate* (METOPROLOL TARTRATE*) 25 Mg Tablet, 25 MG GT DAILY, TAB 04/09/17 Na Phos,M-B/Na Phos,Di-Ba* (FLEET ENEMA*) 133 Ml Enema, 133 ML RECTAL DAILY PRN for Constipation, ML 0 Refills 04/09/17 Bisacodyl (BISACODYL) 10 Mg Supp.rect, 10 MG RC DAILY PRN for Constipation, SUPP 04/09/17 Calcium Carbonate (CALCIUM) 500 Mg Tablet, 500 MG GT DAILY, TAB 04/09/17 Doxazosin Mesylate* (CARDURA*) 1 Mg Tablet, 1 MG GT DAILY, TAB 04/09/17 Warfarin Sod* (WARFARIN SOD*) 1 Mg Tablet, 2.5 MG GT DAILY, TAB 12/10/16 Atorvastatin Calcium* (ATORVASTATIN CALCIUM*) 20 Mg Tablet, 20 MG GT BEDTIME, TAB 11/26/16 Acetaminophen* (ACETAMINOPHEN 325MG TABLET*) 325 Mg Tablet, 650 MG GT Q4H PRN for Mild Pain/Temp > 100.5, TAB 03/04/15 Tramadol Hcl* (ULTRAM*) 50 Mg Tablet, 50 MG GT EVERY 6 HOURS, TAB 0 Refills 02/23/15 Vit C/Ascorbate Ca/Ascorb Sod (VITAMIN C 500 MG/15 ML LIQUID) 500 Mg/15 Ml Liquid, 500 MG GT DAILY, ML 02/23/15 Ondansetron* (ZOFRAN*) 4 Mg Tablet, 4 MG ORAL Q6H PRN for Nausea & Vomiting, TAB 02/23/15 Multivitamin with Minerals (Multivitamins with Minerals) 1 Each Tablet, 1 TAB GT DAILY, TAB 02/23/15 Furosemide* (LASIX*) 20 Mg Tablet, 20 MG GT DAILY, TAB 02/23/15 Docusate Sodium (Docusate Sodium) 100 Mg/10 Ml Udc, 100 MG GT DAILY, EA 02/23/15 Clonidine Hcl* (CATAPRES*) 0.1 Mg Tablet, 0.1 MG GT PRN for For High Blood Pressure, TAB 05/13/13 Amlodipine Besylate (Norvasc) 2.5 Mg Tab, 2.5 MG GT BID, TAB 05/13/13 Phosphorus (Phospha 250 Neutral Tablet) 250 Mg Tab, 250 MG GT BID, TAB 05/13/13 Valproic Acid (Depakene) 250 Mg Cap, 500 MG GT TID, CAP 05/13/13 Docusate Sodium* (COLACE*) 100 Mg Capsule, 100 MG GT TWICE A DAY, CAP 05/13/13 Pantoprazole* (PANTOPRAZOLE*) 40 Mg Tablet.dr, 40 MG GT DAILY 05/13/13 Tamsulosin HCl (Flomax) 0.4 Mg Cap, 0.4 MG GT DAILY, #30 TAB 0 Refills 05/13/13 Albuterol Sulfate* (ALBUTEROL SULFATE HHN*) 2.5 Mg/3 Ml Vial.neb, 2.5 MG HHN Q4HR PRN 03/30/13 Clonidine Hcl* (CATAPRES*) 0.1 Mg Tablet, 0.1 MG GT Q8HR PRN 03/30/13 Valproic Acid (Depakene) 250 Mg Cap, 500 MG GT TID 03/30/13 Med list reviewed/reconciled: Yes Allergies: Coded Allergies: MORPHINE (Unverified Allergy, Unknown, 03/31/18) Patient History PMH Narrative Past Medical History: CVA/TIA, dementia, seizures Pertinent Family History: none Social History: Denies: smoking, alcohol use, drug use Immunizations: UTD Reviewed Nursing Documentation: PMH: Agreed; PSxH: Agreed Nursing Documentation-PMH Hx Cardiac Problems: Yes - Heart Failure, Sepsis, Localized Edema, Pneumonitis from Aspirate, anemia Hx Hypertension: Yes - coagulation defect, hepatitis c, long chain beamer use anticoagulants, hemiplegia,a Hx COPD: Yes Hx Cancer: No Hx Cerebrovascular Accident: Yes Hx Dementia: Yes Hx Encephalitis: Yes Hx Seizures: Yes Hx Aphasia: Yes Hx Dysphasia: Yes Hx Weakness: Yes Social History: Denies: smoking, alcohol use, drug use, other Review of Systems All Other Systems: limited Physical Exam Vital Signs Date Time Temp Pulse Resp B/P (MAP) Pulse Ox O2 Delivery O2 Flow Rate FiO2 03/31/18 12:19 98.5 76 18 133/79 97 98.4 Sp02 EP Interpretation: reviewed, normal Labs Laboratory Tests Test 03/31/18 14:05 03/31/18 15:33 White Blood Count 8.2 K/UL (4.8-10.8) Red Blood Count 3.63 M/UL (4.70-6.10) L Hemoglobin 11.9 G/DL (14.2-18.0) L Hematocrit 36.0 % (42.0-52.0) L Mean Corpuscular Volume 99 FL (80-99) Mean Corpuscular Hemoglobin 32.7 PG (27.0-31.0) H Mean Corpuscular Hemoglobin Concent 32.9 G/DL (32.0-36.0) Red Cell Distribution Width 13.7 % (11.6-14.8) Platelet Count 178 K/UL (150-450) Mean Platelet Volume 7.5 FL (6.5-10.1) Neutrophils (%) (Auto) 41.6 % (45.0-75.0) L Lymphocytes (%) (Auto) 44.7 % (20.0-45.0) Monocytes (%) (Auto) 9.6 % (1.0-10.0) Eosinophils (%) (Auto) 3.3 % (0.0-3.0) H Basophils (%) (Auto) 0.8 % (0.0-2.0) Prothrombin Time 18.7 SEC (9.30-11.50) H Prothromb Time International Ratio 1.8 (0.9-1.1) H Activated Partial Thromboplast Time 41 SEC (23-33) H Sodium Level 140 MMOL/L (136-145) Potassium Level 4.1 MMOL/L (3.5-5.1) Chloride Level 104 MMOL/L (98-107) Carbon Dioxide Level 30 MMOL/L (21-32) Anion Gap 6 mmol/L (5-15) Blood Urea Nitrogen 25 mg/dL (7-18) H Creatinine 0.9 MG/DL (0.55-1.30) Estimat Glomerular Filtration Rate mL/min (>60) Glucose Level 128 MG/DL (74-106) H Lactic Acid Level 1.80 mmol/L (0.4-2.0) Calcium Level 8.7 MG/DL (8.5-10.1) Total Bilirubin 0.3 MG/DL (0.2-1.0) Aspartate Amino Transf (AST/SGOT) 17 U/L (15-37) Alanine Aminotransferase (ALT/SGPT) 15 U/L (12-78) Alkaline Phosphatase 67 U/L (46-116) Total Protein 8.0 G/DL (6.4-8.2) Albumin 2.3 G/DL (3.4-5.0) L Globulin 5.7 g/dL Albumin/Globulin Ratio 0.4 (1.0-2.7) L Urine Color Yellow Urine Appearance Clear Urine pH 7 (4.5-8.0) Urine Specific [place] 1.010 (1.005-1.035) Urine Protein 1+ (NEGATIVE) H Urine Glucose (UA) Negative (NEGATIVE) Urine Ketones 1+ (NEGATIVE) H Urine Occult Blood 2+ (NEGATIVE) H Urine Nitrite Negative (NEGATIVE) Urine Bilirubin Negative (NEGATIVE) Urine Urobilinogen 4 MG/DL (0.0-1.0) H Urine Leukocyte Esterase 1+ (NEGATIVE) H Urine RBC 5-10 /HPF (0 - 0) H Urine WBC 2-4 /HPF (0 - 0) Urine Squamous Epithelial Cells None /LPF (NONE/OCC) Urine Bacteria Few /HPF (NONE) General Appearance: no apparent distress Head: normocephalic EENT: PERRL/EOMI, normal ENT inspection Neck: supple Respiratory: normal breath sounds, no respiratory distress Cardiovascular: normal rate Gastrointestinal: normal inspection, non tender, soft, normal bowel sounds, non -distended, gt - erythema, with induration and drainage, no heme noted Rectal: deferred Genitourinary: deferred Neurologic: alert Skin: normal inspection, normal color, no rash, warm/dry, palpation normal, well hydrated Lymphatic: normal inspection, no adenopathy GI: Plan Problems: (1) Cellulitis of abdominal wall (2) Anemia (3) Coagulopathy (4) Diarrhea (5) Feeding by G-tube (6) Encounter for feeding tube placement (7) Gastrojejunostomy tube dislodgement (8) Cellulitis at gastrostomy tube site Plan 20french GT changed in ED CXR confirmation, okay to start GTFs will change to GT 24fr if widening ostomy continues to leak >> will consider GJ if 24fr fails. wound dressing changes BID/prn Prevacid GT daily prn transfusions zofran prn electrolyte correction abx fu labs Discussed with Dr. Wilson. Thank you for this patient referral, we will follow. The patient was seen and examined at bedside and all new and available data was reviewed in the patients chart. I agree with the above findings, impression and plan. (Patient seen earlier today. Signature stamp does not reflect patient encounter time.). - MD Sara Barger,[facility] SPECIALTY PERSON Mar 31, 2018 18:17
[2018-03-31] MEDS: 1/2NS w/KCl 20mEq 1000ml 1,000 ML IV SCH (20:58)
[2018-03-31] MEDS: Piperacillin/Tazobactam 3.375 GM in D5W 110 ML IVPB SCH (20:58)
[2018-03-31] MEDS: Docusate 100mg cap ORAL SCH (20:58)
[2018-03-31] MEDS ORDERED: Miralax 17gm pkt ORAL PRN (21:00)
[2018-03-31 21:26] VITALS: BP 160/95
[2018-04-01 00:18] VITALS: BP 154/103
[2018-04-01 00:41] VITALS: BP 156/92
[2018-04-01 04:00] VITALS: BP 158/94
[2018-04-01] MEDS: Piperacillin/Tazobactam 3.375 GM in D5W 110 ML IVPB SCH ×3 (05:02→23:26)
[2018-04-01 07:13] LABS: ANION GAP 5 mmol/L (5-15); BLOOD UREA NITROGEN 24 mg/dL (7-18); CALCIUM 8.4 MG/DL (8.5-10.1); CARBON DIOXIDE 29 MMOL/L (21-32); CHLORIDE 106 MMOL/L (98-107); POTASSIUM 4.1 MMOL/L (3.5-5.1); SODIUM 140 MMOL/L (136-145)
[2018-04-01 07:18] LABS: INR 1.8 (0.9-1.1)
[2018-04-01 07:23] LABS: BASOPHILS % (AUTO) 1.3 % (0.0-2.0); EOSINOPHILS % (AUTO) 4.4 % (0.0-3.0); HEMATOCRIT 34.7 % (42.0-52.0); HEMOGLOBIN 11.6 G/DL (14.2-18.0); LYMPHOCYTES % (AUTO) 43.9 % (20.0-45.0); MEAN CORPUSCULAR VOLUME 99 FL (80-99); MONOCYTES % (AUTO) 8.3 % (1.0-10.0); NEUTROPHILS % (AUTO) 42.1 % (45.0-75.0); PLATELET COUNT 182 K/UL (150-450); RED BLOOD COUNT 3.51 M/UL (4.70-6.10); RED CELL DISTRIBUTION WIDTH 13.3 % (11.6-14.8); WHITE BLOOD COUNT 7.3 K/UL (4.8-10.8)
[2018-04-01 08:00] VITALS: BP 142/78
[2018-04-01] MEDS: Docusate 100mg cap ORAL SCH ×2 (08:36→21:19)
[2018-04-01] MEDS: 1/2NS w/KCl 20mEq 1000ml 1,000 ML IV SCH ×2 (09:09→21:24)
--- NOTE | 2018-04-01 09:45 | History and Physical Report ---
DATE OF ADMISSION: 03/31/2018 REASON FOR ADMISSION: G-tube site cellulitis. HISTORY OF PRESENT ILLNESS: The patient is nonverbal, cannot obtain any history from the patient. The patient's stoma is also coming out. It is malpositioned. G-tube has erythema around it and it is leaking around the G-tube, needs to be replaced as well. PAST MEDICAL HISTORY: History of venous stasis ulcer, history of osteomyelitis, history of gallstone pancreatitis, history of dysphagia, history of hyperlipidemia, constipation, BPH, GERD, mood disorder, and history of DVT. MEDICATIONS: Coumadin, bisacodyl, clonidine, Colace, doxazosin, furosemide, metoprolol, multivitamin, omeprazole, Flomax, and Depakote. ALLERGIES: To morphine. FAMILY HISTORY: Unable to obtain. SOCIAL HISTORY: Unable to obtain. REVIEW OF SYSTEMS: Unable to obtain. The patient is nonverbal. PHYSICAL EXAMINATION: VITAL SIGNS: Temperature is 98.5 degrees, pulse rate 76, and blood pressure . HEENT: PERRLA. NECK: Supple. No lymphadenopathy. CHEST: Clear to auscultation. CARDIOVASCULAR: Regular rate and rhythm. GASTROINTESTINAL: Soft and distended. Positive bowel sounds. The patient does have leaking around the G-tube site, erythema around the G-tube site as well as G-tube site as well as . Positive bowel sounds. Otherwise, abdomen is soft. EXTREMITIES: Has 1+ edema. Does not follow neurologic exam. Nonverbal, which is his baseline. Reflexes are equal on both sides. Has lower extremity weakness. LABORATORY DATA: WBC of 8.2, hemoglobin of 9.9, and platelets of 178. Sodium 140, potassium 4.1, BUN of 25, creatinine 0.9, and glucose of 128. ASSESSMENT AND PLAN: Cellulitis around the G-tube site, malpositioned G-tube. I have asked Dr. Wilson and Dr. Campa to see the patient for the replacement of the G-tube as well as for the treatment of cellulitis around the G-tube site. Aliza Faria M.D. DR: Aren JOB#: [id number] CC:
[2018-04-01 12:00] VITALS: BP 135/75
--- NOTE | 2018-04-01 12:03 | General Progress Note ---
Assessment/Plan Problem List: (1) Cellulitis of abdominal wall ICD Codes: L03.311 - Cellulitis of abdominal wall SNOMED: 41844473 (2) Feeding problem (3) Feeding by G-tube ICD Codes: Z93.1 - Feeding by G-tube SNOMED: 211124989 (4) Encounter for feeding tube placement ICD Codes: Z87.898 - Personal history of other specified conditions SNOMED: 901329241 (5) Cellulitis of abdominal wall ICD Codes: L03.311 - Cellulitis of abdominal wall SNOMED: 88255503 (6) Anemia ICD Codes: D64.9 - Anemia SNOMED: 653159245 Status: progressing Assessment/Plan afebrile cellulitis aroung peg malpostioned peg dr delvalle is on the case abx per id reivewed chart and labs Subjective ROS Limited/Unobtainable: Yes Allergies: Coded Allergies: MORPHINE (Unverified Allergy, Unknown, 03/31/18) Objective Last 24 Hour Vital Signs Date Time Temp Pulse Resp B/P (MAP) Pulse Ox O2 Delivery O2 Flow Rate FiO2 04/01/18 08:08 Room Air 04/01/18 08:00 98.8 79 20 142/78 (99) 79 98.8 04/01/18 04:00 98.4 83 20 158/94 (115) 96 98.4 04/01/18 00:41 156/92 (113) 04/01/18 00:18 98.2 79 20 154/103 (120) 97 98.2 03/31/18 21:44 Room Air 03/31/18 21:26 98.6 72 19 160/95 (116) 97 98.6 03/31/18 18:34 Room Air 03/31/18 16:52 98.4 88 20 124/76 100 98.4 03/31/18 15:52 98.4 88 20 124/76 100 98.4 03/31/18 12:37 98.4 76 18 133/79 97 98.4 03/31/18 12:19 98.5 76 18 133/79 97 98.4 Intake and Output 03/31/18 04/01/18 19:00 07:00 Intake Total 100 ml 1345.0 ml Output Total 0 ml Balance 100 ml 1345.0 ml Intake Free Water 100 ml 100 ml IV Total 465.0 ml Tube Feeding 0 ml 780 ml Output Urine Total 0 ml # Voids 2 # Bowel Movements 2 1 Laboratory Tests 03/31/18 14:05: White Blood Count 8.2, Red Blood Count 3.63L, Hemoglobin 11.9L, Hematocrit 36.0L , Mean Corpuscular Volume 99, Mean Corpuscular Hemoglobin 32.7H, Mean Corpuscular Hemoglobin Concent 32.9, Red Cell Distribution Width 13.7, Platelet Count 178, Mean Platelet Volume 7.5, Neutrophils (%) (Auto) 41.6L, Lymphocytes ( %) (Auto) 44.7, Monocytes (%) (Auto) 9.6, Eosinophils (%) (Auto) 3.3H, Basophils (%) (Auto) 0.8, Prothrombin Time 18.7H, Prothromb Time International Ratio 1.8H, Activated Partial Thromboplast Time 41H, Sodium Level 140, Potassium Level 4.1, Chloride Level 104, Carbon Dioxide Level 30, Anion Gap 6, Blood Urea Nitrogen 25H, Creatinine 0.9, Estimat Glomerular Filtration Rate , Glucose Level 128H, Lactic Acid Level 1.80, Calcium Level 8.7, Total Bilirubin 0.3, Aspartate Amino Transf (AST/SGOT) 17, Alanine Aminotransferase (ALT/SGPT) 15, Alkaline Phosphatase 67, Total Protein 8.0, Albumin 2.3L, Globulin 5.7, Albumin/Globulin Ratio 0.4L 03/31/18 15:33: Urine Color Yellow, Urine Appearance Clear, Urine pH 7, Urine Specific [place] 1.010, Urine Protein 1+H, Urine Glucose (UA) Negative, Urine Ketones 1+H, Urine Occult Blood 2+H, Urine Nitrite Negative, Urine Bilirubin Negative, Urine Urobilinogen 4H, Urine Leukocyte Esterase 1+H, Urine RBC 5-10H, Urine WBC 2-4, Urine Squamous Epithelial Cells None, Urine Bacteria Few 04/01/18 05:40: White Blood Count 7.3, Red Blood Count 3.51L, Hemoglobin 11.6L, Hematocrit 34.7L , Mean Corpuscular Volume 99, Mean Corpuscular Hemoglobin 33.1H, Mean Corpuscular Hemoglobin Concent 33.5, Red Cell Distribution Width 13.3, Platelet Count 182, Mean Platelet Volume 6.9, Neutrophils (%) (Auto) 42.1L, Lymphocytes ( %) (Auto) 43.9, Monocytes (%) (Auto) 8.3, Eosinophils (%) (Auto) 4.4H, Basophils (%) (Auto) 1.3, Prothrombin Time 18.7H, Prothromb Time International Ratio 1.8H, Activated Partial Thromboplast Time 33, Sodium Level 140, Potassium Level 4.1, Chloride Level 106, Carbon Dioxide Level 29, Anion Gap 5, Blood Urea Nitrogen 24H, Creatinine 1.0, Estimat Glomerular Filtration Rate , Glucose Level 129H, Calcium Level 8.4L, Magnesium Level 1.9 Height (Feet): 5 Height (Inches): 11.00 Weight (Pounds): 220 General Appearance: confused Respiratory/Chest: lungs clear Aliza Faria MD Apr 01, 2018 12:03
[2018-04-01] MEDS ORDERED: Tubing IV Secondary IV ONE (14:37)
--- NOTE | 2018-04-01 16:25 | GI Progress Note ---
Assessment/Plan Problems: (1) Cellulitis at gastrostomy tube site ICD Codes: K94.22 - Gastrostomy infection; L03.319 - Cellulitis of trunk, unspecified SNOMED: 193295353, 979307623 (2) Feeding by G-tube ICD Codes: Z93.1 - Feeding by G-tube SNOMED: 195908980 (3) Anemia ICD Codes: D64.9 - Anemia SNOMED: 520609001 (4) Cellulitis of abdominal wall ICD Codes: L03.311 - Cellulitis of abdominal wall SNOMED: 00037873 (5) Limited mobility in bed SNOMED: 0744428 Status: unchanged Status Narrative Discussed with Dr. Wilson. Assessment/Plan 20french GT changed in ED GT site still has leakage, will change to 24fr today >> will consider GJ on if site continues to leak. wound dressing changes BID/prn Prevacid GT daily prn transfusions zofran prn electrolyte correction abx fu labs Subjective Subjective limited Objective Last 24 Hour Vital Signs Date Time Temp Pulse Resp B/P (MAP) Pulse Ox O2 Delivery O2 Flow Rate FiO2 04/01/18 12:00 98.6 82 20 135/75 (95) 79 98.6 04/01/18 08:08 Room Air 04/01/18 08:00 98.8 79 20 142/78 (99) 79 98.8 04/01/18 04:00 98.4 83 20 158/94 (115) 96 98.4 04/01/18 00:41 156/92 (113) 04/01/18 00:18 98.2 79 20 154/103 (120) 97 98.2 03/31/18 21:44 Room Air 03/31/18 21:26 98.6 72 19 160/95 (116) 97 98.6 03/31/18 18:34 Room Air 03/31/18 16:52 98.4 88 20 124/76 100 98.4 Intake and Output 03/31/18 04/01/18 19:00 07:00 Intake Total 100 ml 1345.0 ml Output Total 0 ml Balance 100 ml 1345.0 ml Intake Free Water 100 ml 100 ml IV Total 465.0 ml Tube Feeding 0 ml 780 ml Output Urine Total 0 ml # Voids 2 # Bowel Movements 2 1 Laboratory Tests Test 04/01/18 05:40 White Blood Count 7.3 K/UL (4.8-10.8) Red Blood Count 3.51 M/UL (4.70-6.10) L Hemoglobin 11.6 G/DL (14.2-18.0) L Hematocrit 34.7 % (42.0-52.0) L Mean Corpuscular Volume 99 FL (80-99) Mean Corpuscular Hemoglobin 33.1 PG (27.0-31.0) H Mean Corpuscular Hemoglobin Concent 33.5 G/DL (32.0-36.0) Red Cell Distribution Width 13.3 % (11.6-14.8) Platelet Count 182 K/UL (150-450) Mean Platelet Volume 6.9 FL (6.5-10.1) Neutrophils (%) (Auto) 42.1 % (45.0-75.0) L Lymphocytes (%) (Auto) 43.9 % (20.0-45.0) Monocytes (%) (Auto) 8.3 % (1.0-10.0) Eosinophils (%) (Auto) 4.4 % (0.0-3.0) H Basophils (%) (Auto) 1.3 % (0.0-2.0) Prothrombin Time 18.7 SEC (9.30-11.50) H Prothromb Time International Ratio 1.8 (0.9-1.1) H Activated Partial Thromboplast Time 33 SEC (23-33) Sodium Level 140 MMOL/L (136-145) Potassium Level 4.1 MMOL/L (3.5-5.1) Chloride Level 106 MMOL/L (98-107) Carbon Dioxide Level 29 MMOL/L (21-32) Anion Gap 5 mmol/L (5-15) Blood Urea Nitrogen 24 mg/dL (7-18) H Creatinine 1.0 MG/DL (0.55-1.30) Estimat Glomerular Filtration Rate mL/min (>60) Glucose Level 129 MG/DL (74-106) H Calcium Level 8.4 MG/DL (8.5-10.1) L Magnesium Level 1.9 MG/DL (1.8-2.4) Height (Feet): 5 Height (Inches): 11.00 Weight (Pounds): 220 General Appearance: no apparent distress Cardiovascular: normal rate Respiratory/Chest: normal breath sounds, no respiratory distress Abdominal Exam: normal bowel sounds, non tender, soft, GT site - widening ostomy Extremities: non-tender Jevon Ruiz NP Apr 01, 2018 16:25
[2018-04-01] MEDS ORDERED: Vancomycin 1.5 GM/D5W 250ML IVPB SCH (20:00)
[2018-04-01 20:14] VITALS: BP 150/80
--- NOTE | 2018-04-01 23:31 | Consultation ---
History of Present Illness General Date patient seen: Apr 01, 2018 Chief Complaint: General Complaint Referring physician: VIDYA CONNOLLY Reason for Consultation: GT malfunction Present Illness HPI 77-year-old male with hx of dementia and depression Per nursing staff at SNF patient has leakage from his G-tube. the pt was able to say few words. the pt was alert however confused with flat affect Allergies: Coded Allergies: MORPHINE (Unverified Allergy, Unknown, 03/31/18) Medication History Scheduled Amino Acids/Protein Hydrolys (Pro-Stat Liquid), 30 ML GT DAILY, (Reported) Amlodipine Besylate (Norvasc), 2.5 MG GT BID, (Reported) Atorvastatin Calcium* (Atorvastatin Calcium*), 20 MG GT BEDTIME, (Reported) Calcium Carbonate (Calcium), 500 MG GT DAILY, (Reported) Clonidine Hcl* (Catapres*), 0.1 MG GT PRN, (Reported) Docusate Sodium (Docusate Sodium), 100 MG GT DAILY, (Reported) Docusate Sodium* (Colace*), 100 MG GT TWICE A DAY, (Reported) Doxazosin Mesylate* (Cardura*), 1 MG GT DAILY, (Reported) Furosemide* (Lasix*), 20 MG GT DAILY, (Reported) Metoprolol Tartrate* (Metoprolol Tartrate*), 25 MG GT DAILY, (Reported) Multivitamin with Minerals (Multivitamins with Minerals), 1 TAB GT DAILY, ( Reported) Omeprazole (Omeprazole), 40 MG ORAL DAILY, (Reported) Pantoprazole* (Pantoprazole*), 40 MG GT DAILY, (Reported) Phosphorus (Phospha 250 Neutral Tablet), 250 MG GT BID, (Reported) Potassium Chloride (Potassium Chloride), 20 MEQ PO TID, (Reported) Tamsulosin HCl (Flomax), 0.4 MG GT DAILY, (Reported) Tamsulosin Hcl (Tamsulosin Hcl*), 0.4 MG GT BEDTIME, (Reported) Tramadol Hcl* (Ultram*), 50 MG GT EVERY 6 HOURS, (Reported) Valproic Acid (Depakene), 500 MG GT TID, (Reported) Valproic Acid (Depakene), 500 MG GT TID, (Reported) Vit C/Ascorbate Ca/Ascorb Sod (Vitamin C 500 Mg/15 Ml Liquid), 500 MG GT DAILY, (Reported) Warfarin Sod* (Warfarin Sod*), 2.5 MG GT DAILY, (Reported) Zinc Sulfate (Zinc Sulfate*), 220 MG GT DAILY, (Reported) Scheduled PRN Acetaminophen* (Acetaminophen 325MG Tablet*), 650 MG GT Q4H PRN for Mild Pain/ Temp > 100.5, (Reported) Albuterol Sulfate* (Albuterol Sulfate Hhn*), 2.5 MG HHN Q4HR PRN, (Reported) Bisacodyl (Bisacodyl), 10 MG RC DAILY PRN for Constipation, (Reported) Clonidine Hcl* (Catapres*), 0.1 MG GT Q8HR PRN, (Reported) Magnesium Hydroxide* (Milk Of Magnesia*), 30 ML ORAL DAILY PRN for Constipation, (Reported) Na Phos,M-B/Na Phos,Di-Ba* (Fleet Enema*), 133 ML RECTAL DAILY PRN for Constipation, (Reported) Ondansetron* (Zofran*), 4 MG ORAL Q6H PRN for Nausea & Vomiting, (Reported) Patient History Limited by: medical condition History Provided By: Medical Record, PMD Healthcare decision maker Resuscitation status Do Not Intubate Advanced Directive on File No Past Medical/Surgical History Past Medical/Surgical History: (1) Cellulitis of abdominal wall (2) Pressure ulcer (3) Fever (4) Coagulopathy (5) Cellulitis (6) Seizure disorder (7) Sepsis (8) Osteomyelitis (9) Venous stasis ulcers (10) Osteomyelitis of left foot (11) Venous stasis dermatitis (12) DKA, type 1 (13) Bilateral lower extremity edema (14) Cellulitis of left abdominal wall (15) Dementia (16) Acute pancreatitis (17) Coffee ground vomiting (18) Leukocytosis (19) Common bile duct (CBD) obstruction (20) UTI (urinary tract infection) (21) HCAP (healthcare-associated pneumonia) (22) Gallstone pancreatitis (23) Cellulitis (24) Cellulitis of abdominal wall (25) Anemia (26) Coagulopathy (27) Diarrhea (28) Encounter for feeding tube placement (29) Feeding by G-tube (30) Gastrojejunostomy tube dislodgement (31) Cellulitis at gastrostomy tube site (32) Cellulitis of abdominal wall (33) Feeding problem (34) Limited mobility in bed Review of Systems Psychiatric: Reports: prior hx, anxiety, depressed feelings Physical Exam General Appearance: no apparent distress, alert, confused Last 24 Hour Vital Signs Date Time Temp Pulse Resp B/P (MAP) Pulse Ox O2 Delivery O2 Flow Rate FiO2 04/01/18 21:00 Room Air 04/01/18 20:14 99.1 75 22 150/80 (103) 79 99.1 04/01/18 12:00 98.6 82 20 135/75 (95) 79 98.6 04/01/18 08:08 Room Air 04/01/18 08:00 98.8 79 20 142/78 (99) 79 98.8 04/01/18 04:00 98.4 83 20 158/94 (115) 96 98.4 04/01/18 00:41 156/92 (113) 04/01/18 00:18 98.2 79 20 154/103 (120) 97 98.2 Intake and Output 03/31/18 04/01/18 19:00 07:00 Intake Total 100 ml 1345.0 ml Output Total 0 ml Balance 100 ml 1345.0 ml Intake Free Water 100 ml 100 ml IV Total 465.0 ml Tube Feeding 0 ml 780 ml Output Urine Total 0 ml # Voids 2 # Bowel Movements 2 1 Laboratory Tests Test 04/01/18 05:40 White Blood Count 7.3 K/UL (4.8-10.8) Red Blood Count 3.51 M/UL (4.70-6.10) L Hemoglobin 11.6 G/DL (14.2-18.0) L Hematocrit 34.7 % (42.0-52.0) L Mean Corpuscular Volume 99 FL (80-99) Mean Corpuscular Hemoglobin 33.1 PG (27.0-31.0) H Mean Corpuscular Hemoglobin Concent 33.5 G/DL (32.0-36.0) Red Cell Distribution Width 13.3 % (11.6-14.8) Platelet Count 182 K/UL (150-450) Mean Platelet Volume 6.9 FL (6.5-10.1) Neutrophils (%) (Auto) 42.1 % (45.0-75.0) L Lymphocytes (%) (Auto) 43.9 % (20.0-45.0) Monocytes (%) (Auto) 8.3 % (1.0-10.0) Eosinophils (%) (Auto) 4.4 % (0.0-3.0) H Basophils (%) (Auto) 1.3 % (0.0-2.0) Prothrombin Time 18.7 SEC (9.30-11.50) H Prothromb Time International Ratio 1.8 (0.9-1.1) H Activated Partial Thromboplast Time 33 SEC (23-33) Sodium Level 140 MMOL/L (136-145) Potassium Level 4.1 MMOL/L (3.5-5.1) Chloride Level 106 MMOL/L (98-107) Carbon Dioxide Level 29 MMOL/L (21-32) Anion Gap 5 mmol/L (5-15) Blood Urea Nitrogen 24 mg/dL (7-18) H Creatinine 1.0 MG/DL (0.55-1.30) Estimat Glomerular Filtration Rate mL/min (>60) Glucose Level 129 MG/DL (74-106) H Calcium Level 8.4 MG/DL (8.5-10.1) L Magnesium Level 1.9 MG/DL (1.8-2.4) Height (Feet): 5 Height (Inches): 11.00 Weight (Pounds): 220 Medications Current Medications Medications (Trade) Dose Ordered Sig/Jamaal Route PRN Reason Start Time Stop Time Status Last Admin Dose Admin Acetaminophen (Tylenol) 650 mg Q4H PRN ORAL Mild Pain (Pain Scale 1-3) 03/31/18 19:00 04/30/18 18:59 Acetaminophen (Tylenol) 650 mg Q4H PRN ORAL fever 03/31/18 19:00 04/30/18 18:59 Dextrose (Dextrose 50%) 25 ml STAT PRN IV Hypoglycemia 03/31/18 19:00 04/30/18 18:59 Dextrose (Dextrose 50%) 50 ml STAT PRN IV Hypoglycemia 03/31/18 19:00 04/30/18 18:59 Docusate Sodium (Colace) 100 mg EVERY 12 HOURS ORAL 03/31/18 21:00 04/30/18 20:59 04/01/18 21:19 Lansoprazole (Prevacid) 30 mg DAILY GT 04/01/18 09:00 05/01/18 08:59 04/01/18 08:36 Ondansetron HCl (Zofran) 4 mg Q6H PRN IVP Nausea & Vomiting 03/31/18 19:00 04/30/18 18:59 Piperacillin Sod/ Tazobactam Sod 3.375 gm/Dextrose 110 ml @ 27.5 mls/hr Q8H IVPB 03/31/18 23:00 04/07/18 22:59 04/01/18 23:26 Polyethylene Glycol (Miralax) 17 gm HSPRN PRN ORAL Constipation 03/31/18 21:00 04/30/18 20:59 Sodium 1,000 ml @ 75 mls/hr [id number] IV 03/31/18 20:00 04/30/18 19:59 04/01/18 21:24 Vancomycin HCl (Vanco rx to dose) 1 ea DAILY PRN MISC Per rx protocol 04/01/18 13:45 05/01/18 13:44 Vancomycin HCl 1 gm/Dextrose 275 ml @ 183.708 mls/hr Q12H IVPB 04/02/18 08:00 04/07/18 07:59 Assessment/Plan Assessment/Plan dementia encephalopathy seroquel prn Sue Rodriguez MD Apr 01, 2018 23:31
[2018-04-02] VITALS: BP 144/86
--- NOTE | 2018-04-02 | Consultation ---
DATE OF CONSULTATION: 04/01/2018 INFECTIOUS DISEASE CONSULTATION CONSULTING PHYSICIAN: Lopez Almaraz M.D. PRIMARY ATTENDING PHYSICIAN: Aliza Faria M.D. REASON FOR CONSULT: Abdominal wall cellulitis, gastrostomy infection. HISTORY OF PRESENT ILLNESS: This is a 77-year-old male, who is a senior living resident, admitted yesterday because of discharge and leaking from the G-tube site. The G-tube site is already changed and there is no more leakage. PAST MEDICAL HISTORY: Significant for CVA and dementia. He has history of hepatitis C, CHF, COPD, and seizure disorder. MEDICATIONS: Prevacid, Zosyn, Colace, MiraLAX, and Tylenol. ALLERGIES: Allergic to morphine. SOCIAL HISTORY: [facility] resident. CODE STATUS: DNR. REVIEW OF SYSTEMS: No other history is obtainable. The patient has diarrhea. PHYSICAL EXAMINATION: GENERAL APPEARANCE: The patient is afebrile, temperature 98.6, pulse 86, and blood pressure 135/75. HEAD AND NECK: [place] conjunctiva. HEART: Regular. LUNGS: Clear. ABDOMEN: Soft. There is a G-tube in place. Minimal erythema and granulation tissue around G-tube. Around the G-tube, ascites, has rigidity. EXTREMITY: Has edema, more in the right lower extremity. LABORATORY AND DIAGNOSTIC DATA: WBC 7.3, hemoglobin 11.6, hematocrit 34.1, and platelets 182,000. Sodium 140, potassium 4.1, chloride 106, bicarb 29, BUN 24, creatinine 1, and glucose 129. Chest x-ray, no acute disease. KUB showed satisfactory position of G-tube. Bilateral leg venous duplex was negative for DVT. IMPRESSION: 1. Gastrostomy malfunctioning and infection. 2. Minimal abdominal wall cellulitis. 3. Diarrhea, may be related to medication that the patient is getting for constipation. 4. Dementia. 5. . 6. Hepatitis C. 7. Seizure disorder. RECOMMENDATION: We will continue Zosyn. Add IV vancomycin. We will follow up the culture. At the end of my exam, I thank Dr. Faria for involving me in the care of this patient. Lopez Almaraz M.D. DR: NANO JOB#: [id number] CC:
[2018-04-02 04:07] VITALS: BP 143/84
[2018-04-02] MEDS: Piperacillin/Tazobactam 3.375 GM in D5W 110 ML IVPB SCH ×2 (04:35→17:01)
[2018-04-02 06:58] LABS: BASOPHILS % (AUTO) 1.4 % (0.0-2.0); EOSINOPHILS % (AUTO) 5.5 % (0.0-3.0); HEMATOCRIT 32.7 % (42.0-52.0); HEMOGLOBIN 11.2 G/DL (14.2-18.0); LYMPHOCYTES % (AUTO) 36.2 % (20.0-45.0); MEAN CORPUSCULAR VOLUME 98 FL (80-99); MONOCYTES % (AUTO) 9.7 % (1.0-10.0); NEUTROPHILS % (AUTO) 47.2 % (45.0-75.0); PLATELET COUNT 159 K/UL (150-450); RED BLOOD COUNT 3.33 M/UL (4.70-6.10); RED CELL DISTRIBUTION WIDTH 13.6 % (11.6-14.8)
[2018-04-02 07:42] LABS: ANION GAP 7 mmol/L (5-15); BLOOD UREA NITROGEN 25 mg/dL (7-18); CALCIUM 8.4 MG/DL (8.5-10.1); CARBON DIOXIDE 26 MMOL/L (21-32); CHLORIDE 107 MMOL/L (98-107); CREATININE 0.9 MG/DL (0.55-1.30); PHOSPHORUS 2.4 MG/DL (2.5-4.9); POTASSIUM 3.9 MMOL/L (3.5-5.1); SODIUM 140 MMOL/L (136-145)
[2018-04-02 08:00] VITALS: BP 129/72
[2018-04-02] MEDS: Vancomycin 1gm/D5W 275ml IVPB SCH ×4 (08:32→21:03)
[2018-04-02] MEDS: Docusate 100mg/10ml Liq GT SCH ×2 (08:45→21:03)
[2018-04-02] MEDS ORDERED: Potassium Phosphate 15 MM in NS 275 ML IV SCH (10:00)
--- NOTE | 2018-04-02 11:53 | General Progress Note ---
Assessment/Plan Assessment/Plan dementia encephalopathy seroquel prn Subjective Date patient seen: Apr 02, 2018 Neurologic/Psychiatric: Reports: numbness, pre-existing deficit, weakness Allergies: Coded Allergies: MORPHINE (Unverified Allergy, Unknown, 03/31/18) Objective Last 24 Hour Vital Signs Date Time Temp Pulse Resp B/P (MAP) Pulse Ox O2 Delivery O2 Flow Rate FiO2 04/02/18 09:00 Room Air 04/02/18 08:00 98.0 77 19 129/72 (91) 96 98.0 04/02/18 04:07 99.5 74 19 143/84 (103) 99 99.5 04/02/18 00:00 98.2 75 19 144/86 (105) 99 98.2 04/01/18 21:00 Room Air 04/01/18 20:14 99.1 75 22 150/80 (103) 97 99.1 04/01/18 12:00 98.6 82 20 135/75 (95) 79 98.6 Intake and Output 04/01/18 04/02/18 19:00 07:00 Intake Total 1235.0 ml 1480.0 ml Balance 1235.0 ml 1480.0 ml Intake Free Water 100 ml 200 ml IV Total 615.0 ml 565.0 ml Tube Feeding 520 ml 715 ml # Voids 1 # Bowel Movements 1 Laboratory Tests 04/02/18 06:05: White Blood Count 5.0, Red Blood Count 3.33L, Hemoglobin 11.2L, Hematocrit 32.7L , Mean Corpuscular Volume 98, Mean Corpuscular Hemoglobin 33.5H, Mean Corpuscular Hemoglobin Concent 34.1, Red Cell Distribution Width 13.6, Platelet Count 159, Mean Platelet Volume 7.4, Neutrophils (%) (Auto) 47.2, Lymphocytes (% ) (Auto) 36.2, Monocytes (%) (Auto) 9.7, Eosinophils (%) (Auto) 5.5H, Basophils (%) (Auto) 1.4, Sodium Level 140, Potassium Level 3.9, Chloride Level 107, Carbon Dioxide Level 26, Anion Gap 7, Blood Urea Nitrogen 25H, Creatinine 0.9, Estimat Glomerular Filtration Rate , Glucose Level 143H, Calcium Level 8.4L, Phosphorus Level 2.4L, Magnesium Level 2.0 Height (Feet): 5 Height (Inches): 11.00 Weight (Pounds): 245 General Appearance: WD/WN, no apparent distress, lethargic Sue Rodriguez MD Apr 02, 2018 11:53
[2018-04-02 12:00] VITALS: BP 143/88
[2018-04-02] MEDS: 1/2NS w/KCl 20mEq 1000ml 1,000 ML IV SCH (12:00)
--- NOTE | 2018-04-02 12:39 | GI Progress Note ---
Assessment/Plan Problems: (1) Cellulitis at gastrostomy tube site ICD Codes: K94.22 - Gastrostomy infection; L03.319 - Cellulitis of trunk, unspecified SNOMED: 184690192, 790117929 (2) Feeding by G-tube ICD Codes: Z93.1 - Feeding by G-tube SNOMED: 809735017 (3) Anemia ICD Codes: D64.9 - Anemia SNOMED: 730689497 (4) Cellulitis of abdominal wall ICD Codes: L03.311 - Cellulitis of abdominal wall SNOMED: 80754144 (5) Limited mobility in bed SNOMED: 4607374 Status: stable, unchanged Status Narrative Discussed with Dr. Wilson. Assessment/Plan 24fr GT changed at bedside >> improved, however, has minimal amounts of leakage. >> will observe and consider possible J tube placement this saturday wound dressing changes BID/prn Prevacid GT daily prn transfusions zofran prn electrolyte correction abx fu labs The patient was seen and examined at bedside and all new and available data was reviewed in the patients chart. I agree with the above findings, impression and plan. (Patient seen earlier today. Signature stamp does not reflect patient encounter time.). - César Wilson MD Subjective Subjective limited Objective Last 24 Hour Vital Signs Date Time Temp Pulse Resp B/P (MAP) Pulse Ox O2 Delivery O2 Flow Rate FiO2 04/02/18 09:00 Room Air 04/02/18 08:00 98.0 77 19 129/72 (91) 96 98.0 04/02/18 04:07 99.5 74 19 143/84 (103) 99 99.5 04/02/18 00:00 98.2 75 19 144/86 (105) 99 98.2 04/01/18 21:00 Room Air 04/01/18 20:14 99.1 75 22 150/80 (103) 97 99.1 Intake and Output 04/01/18 04/02/18 19:00 07:00 Intake Total 1235.0 ml 1480.0 ml Balance 1235.0 ml 1480.0 ml Intake Free Water 100 ml 200 ml IV Total 615.0 ml 565.0 ml Tube Feeding 520 ml 715 ml # Voids 1 # Bowel Movements 1 Laboratory Tests Test 7/18/18 06:05 White Blood Count 5.0 K/UL (4.8-10.8) Red Blood Count 3.33 M/UL (4.70-6.10) L Hemoglobin 11.2 G/DL (14.2-18.0) L Hematocrit 32.7 % (42.0-52.0) L Mean Corpuscular Volume 98 FL (80-99) Mean Corpuscular Hemoglobin 33.5 PG (27.0-31.0) H Mean Corpuscular Hemoglobin Concent 34.1 G/DL (32.0-36.0) Red Cell Distribution Width 13.6 % (11.6-14.8) Platelet Count 159 K/UL (150-450) Mean Platelet Volume 7.4 FL (6.5-10.1) Neutrophils (%) (Auto) 47.2 % (45.0-75.0) Lymphocytes (%) (Auto) 36.2 % (20.0-45.0) Monocytes (%) (Auto) 9.7 % (1.0-10.0) Eosinophils (%) (Auto) 5.5 % (0.0-3.0) H Basophils (%) (Auto) 1.4 % (0.0-2.0) Sodium Level 140 MMOL/L (136-145) Potassium Level 3.9 MMOL/L (3.5-5.1) Chloride Level 107 MMOL/L (98-107) Carbon Dioxide Level 26 MMOL/L (21-32) Anion Gap 7 mmol/L (5-15) Blood Urea Nitrogen 25 mg/dL (7-18) H Creatinine 0.9 MG/DL (0.55-1.30) Estimat Glomerular Filtration Rate mL/min (>60) Glucose Level 143 MG/DL (74-106) H Calcium Level 8.4 MG/DL (8.5-10.1) L Phosphorus Level 2.4 MG/DL (2.5-4.9) L Magnesium Level 2.0 MG/DL (1.8-2.4) Height (Feet): 5 Height (Inches): 11.00 Weight (Pounds): 245 General Appearance: no apparent distress Cardiovascular: normal rate Respiratory/Chest: normal breath sounds, no respiratory distress Abdominal Exam: normal bowel sounds, non tender, soft, GT site - still has minimal amounts of leakage Extremities: non-tender Jevon Ruiz [employer] Apr 02, 2018 12:39
--- NOTE | 2018-04-02 13:05 | Infectious Diseases Prog Note ---
Assessment/Plan Assessment/Plan A: 1. Gastrostomy malfunctioning and infection. 2. Minimal abdominal wall cellulitis. 3. MRSA colonization. 4. Dementia. 5.VRE colonization. 6. Hepatitis C. 7. Seizure disorder. P; Continue Zosyn & Vancomycin will f/u cultures Subjective ROS Limited/Unobtainable: Yes Allergies: Coded Allergies: MORPHINE (Unverified Allergy, Unknown, 03/31/18) Objective Vital Signs Last 24 Hour Vital Signs Date Time Temp Pulse Resp B/P (MAP) Pulse Ox O2 Delivery O2 Flow Rate FiO2 04/02/18 09:00 Room Air 04/02/18 08:00 98.0 77 19 129/72 (91) 96 98.0 04/02/18 04:07 99.5 74 19 143/84 (103) 99 99.5 04/02/18 00:00 98.2 75 19 144/86 (105) 99 98.2 04/01/18 21:00 Room Air 04/01/18 20:14 99.1 75 22 150/80 (103) 97 99.1 Height (Feet): 5 Height (Inches): 11.00 Weight (Pounds): 245 General Appearance: no acute distress HEENT: mucous membranes moist Respiratory/Chest: lungs clear Cardiovascular: normal rate Abdomen: soft, non tender, other - GT feeding Extremities: no edema Skin: other - erythema, minimal discharge around GT Neurologic/Psychiatric: aphasia Microbiology Date/Time Source Procedure Growth Status 03/31/18 14:05 Blood Blood Culture - Preliminary NO GROWTH AFTER 24 HOURS Resulted 03/31/18 13:55 Blood Blood Culture - Preliminary NO GROWTH AFTER 24 HOURS Resulted 03/31/18 16:00 Nasal Nares MRSA Culture - Final Staphylococcus Aureus - Mrsa Complete 03/31/18 16:00 Rectum VRE Culture - Final Enterococcus Faecium - Vre Complete 03/31/18 16:00 Abdomen Gram Stain - Final Resulted 03/31/18 16:00 Wound Culture - Preliminary Gram Negative Bacillus 1 Gram Negative Bacillus 2 Gram Positive Cocci Resulted Laboratory Tests Test 04/02/18 06:05 White Blood Count 5.0 K/UL (4.8-10.8) Red Blood Count 3.33 M/UL (4.70-6.10) L Hemoglobin 11.2 G/DL (14.2-18.0) L Hematocrit 32.7 % (42.0-52.0) L Mean Corpuscular Volume 98 FL (80-99) Mean Corpuscular Hemoglobin 33.5 PG (27.0-31.0) H Mean Corpuscular Hemoglobin Concent 34.1 G/DL (32.0-36.0) Red Cell Distribution Width 13.6 % (11.6-14.8) Platelet Count 159 K/UL (150-450) Mean Platelet Volume 7.4 FL (6.5-10.1) Neutrophils (%) (Auto) 47.2 % (45.0-75.0) Lymphocytes (%) (Auto) 36.2 % (20.0-45.0) Monocytes (%) (Auto) 9.7 % (1.0-10.0) Eosinophils (%) (Auto) 5.5 % (0.0-3.0) H Basophils (%) (Auto) 1.4 % (0.0-2.0) Sodium Level 140 MMOL/L (136-145) Potassium Level 3.9 MMOL/L (3.5-5.1) Chloride Level 107 MMOL/L (98-107) Carbon Dioxide Level 26 MMOL/L (21-32) Anion Gap 7 mmol/L (5-15) Blood Urea Nitrogen 25 mg/dL (7-18) H Creatinine 0.9 MG/DL (0.55-1.30) Estimat Glomerular Filtration Rate mL/min (>60) Glucose Level 143 MG/DL (74-106) H Calcium Level 8.4 MG/DL (8.5-10.1) L Phosphorus Level 2.4 MG/DL (2.5-4.9) L Magnesium Level 2.0 MG/DL (1.8-2.4) Current Medications Medications (Trade) Dose Ordered Sig/Jamaal Route PRN Reason Start Time Stop Time Status Last Admin Dose Admin Acetaminophen (Tylenol) 650 mg Q4H PRN ORAL Mild Pain (Pain Scale 1-3) 03/31/18 19:00 18 18:59 Acetaminophen (Tylenol) 650 mg Q4H PRN ORAL fever 03/31/18 19:00 04/30/18 18:59 Dextrose (Dextrose 50%) 25 ml STAT PRN IV Hypoglycemia 03/31/18 19:00 04/30/18 18:59 Dextrose (Dextrose 50%) 50 ml STAT PRN IV Hypoglycemia 03/31/18 19:00 04/30/18 18:59 Docusate Sodium (Colace) 100 mg EVERY 12 HOURS GT 04/02/18 09:00 04/30/18 20:59 04/02/18 08:45 Lansoprazole (Prevacid) 30 mg DAILY GT 04/01/18 09:00 05/01/18 08:59 04/02/18 08:42 Ondansetron HCl (Zofran) 4 mg Q6H PRN IVP Nausea & Vomiting 03/31/18 19:00 04/30/18 18:59 Piperacillin Sod/ Tazobactam Sod 3.375 gm/Dextrose 110 ml @ 27.5 mls/hr Q8H IVPB 03/31/18 23:00 04/07/18 22:59 04/02/18 04:35 Polyethylene Glycol (Miralax) 17 gm HSPRN PRN ORAL Constipation 03/31/18 21:00 04/30/18 20:59 Potassium Phosphate 15 mm/ Sodium Chloride 280 ml @ 46.667 mls/ hr ONCE IV 04/02/18 10:00 04/02/18 16:00 04/02/18 11:23 Sodium 1,000 ml @ 75 mls/hr [id number] IV 03/31/18 20:00 04/30/18 19:59 04/01/18 21:24 Vancomycin HCl (Vanco rx to dose) 1 ea DAILY PRN MISC Per rx protocol 04/01/18 13:45 05/01/18 13:44 Vancomycin HCl 1 gm/Dextrose 275 ml @ 183.708 mls/hr Q12H IVPB 04/02/18 08:00 04/07/18 07:59 04/02/18 08:32 Lopez Almaraz MD Apr 02, 2018 13:05
[2018-04-02 16:00] VITALS: BP 140/89
[2018-04-02 20:10] VITALS: BP 128/70
--- NOTE | 2018-04-02 21:38 | General Progress Note ---
Assessment/Plan Problem List: (1) Cellulitis of abdominal wall ICD Codes: L03.311 - Cellulitis of abdominal wall SNOMED: 53696161 (2) Feeding problem (3) Feeding by G-tube ICD Codes: Z93.1 - Feeding by G-tube SNOMED: 874800154 (4) Encounter for feeding tube placement ICD Codes: Z87.898 - Personal history of other specified conditions SNOMED: 400197963 (5) Cellulitis of abdominal wall ICD Codes: L03.311 - Cellulitis of abdominal wall SNOMED: 21414315 (6) Anemia ICD Codes: D64.9 - Anemia SNOMED: 514222786 Assessment/Plan afebrile cellulitis aroung peg malpostioned peg abx per id exchange peg per gi will discuss w gi re plan of care Subjective ROS Limited/Unobtainable: Yes Allergies: Coded Allergies: MORPHINE (Unverified Allergy, Unknown, 03/31/18) Objective Last 24 Hour Vital Signs Date Time Temp Pulse Resp B/P (MAP) Pulse Ox O2 Delivery O2 Flow Rate FiO2 04/02/18 20:10 98.1 70 20 128/70 (89) 95 98.1 04/02/18 16:00 97.9 70 20 140/89 (106) 97 97.9 04/02/18 12:00 97.6 69 20 143/88 (106) 97 97.6 04/02/18 09:00 Room Air 04/02/18 08:00 98.0 77 19 129/72 (91) 96 98.0 04/02/18 04:07 99.5 74 19 143/84 (103) 99 99.5 04/02/18 00:00 98.2 75 19 144/86 (105) 99 98.2 Intake and Output 04/01/18 04/02/18 19:00 07:00 Intake Total 1235.0 ml 1480.0 ml Balance 1235.0 ml 1480.0 ml Intake Free Water 100 ml 200 ml IV Total 615.0 ml 565.0 ml Tube Feeding 520 ml 715 ml # Voids 1 # Bowel Movements 1 Laboratory Tests 04/02/18 06:05: White Blood Count 5.0, Red Blood Count 3.33L, Hemoglobin 11.2L, Hematocrit 32.7L , Mean Corpuscular Volume 98, Mean Corpuscular Hemoglobin 33.5H, Mean Corpuscular Hemoglobin Concent 34.1, Red Cell Distribution Width 13.6, Platelet Count 159, Mean Platelet Volume 7.4, Neutrophils (%) (Auto) 47.2, Lymphocytes (% ) (Auto) 36.2, Monocytes (%) (Auto) 9.7, Eosinophils (%) (Auto) 5.5H, Basophils (%) (Auto) 1.4, Sodium Level 140, Potassium Level 3.9, Chloride Level 107, Carbon Dioxide Level 26, Anion Gap 7, Blood Urea Nitrogen 25H, Creatinine 0.9, Estimat Glomerular Filtration Rate , Glucose Level 143H, Calcium Level 8.4L, Phosphorus Level 2.4L, Magnesium Level 2.0 Height (Feet): 5 Height (Inches): 11.00 Weight (Pounds): 245 Neck: supple Cardiovascular: regularly irregular Respiratory/Chest: chest wall non-tender Abdomen: soft Aliza Faria MD Apr 02, 2018 21:38
[2018-04-03] VITALS: BP 146/87
[2018-04-03] MEDS: Piperacillin/Tazobactam 3.375 GM in D5W 110 ML IVPB SCH ×2 (00:04→06:50)
[2018-04-03] MEDS: 1/2NS w/KCl 20mEq 1000ml 1,000 ML IV SCH ×2 (01:11→14:40)
[2018-04-03 04:10] VITALS: BP 132/82
[2018-04-03 07:29] LABS: BASOPHILS % (AUTO) 1.1 % (0.0-2.0); EOSINOPHILS % (AUTO) 5.5 % (0.0-3.0); HEMATOCRIT 36.4 % (42.0-52.0); HEMOGLOBIN 11.9 G/DL (14.2-18.0); LYMPHOCYTES % (AUTO) 46.3 % (20.0-45.0); MEAN CORPUSCULAR VOLUME 98 FL (80-99); MONOCYTES % (AUTO) 8.1 % (1.0-10.0); PLATELET COUNT 154 K/UL (150-450); RED BLOOD COUNT 3.72 M/UL (4.70-6.10); RED CELL DISTRIBUTION WIDTH 13.2 % (11.6-14.8); WHITE BLOOD COUNT 5.8 K/UL (4.8-10.8)
[2018-04-03 07:42] LABS: ANION GAP 5 mmol/L (5-15); BLOOD UREA NITROGEN 21 mg/dL (7-18); CALCIUM 8.1 MG/DL (8.5-10.1); CARBON DIOXIDE 27 MMOL/L (21-32); CHLORIDE 106 MMOL/L (98-107); CREATININE 0.9 MG/DL (0.55-1.30); POTASSIUM 4.5 MMOL/L (3.5-5.1); SODIUM 138 MMOL/L (136-145)
[2018-04-03] MEDS: Docusate 100mg/10ml Liq GT SCH ×2 (07:45→21:05)
[2018-04-03 08:00] VITALS: BP 148/65
[2018-04-03] MEDS: Vancomycin 1gm/D5W 275ml IVPB SCH ×2 (08:19)
--- NOTE | 2018-04-03 11:14 | GI Progress Note ---
Assessment/Plan Problems: (1) Cellulitis at gastrostomy tube site ICD Codes: K94.22 - Gastrostomy infection; L03.319 - Cellulitis of trunk, unspecified SNOMED: 701846362, 712139625 (2) Feeding by G-tube ICD Codes: Z93.1 - Feeding by G-tube SNOMED: 900376132 (3) Anemia ICD Codes: D64.9 - Anemia SNOMED: 668667408 (4) Cellulitis of abdominal wall ICD Codes: L03.311 - Cellulitis of abdominal wall SNOMED: 26258398 (5) Limited mobility in bed SNOMED: 1680996 Status: unchanged Status Narrative Discussed with Dr. Wilson. Assessment/Plan 24fr GT changed at bedside with minimal leakage over the past 2 days >> defer J tube placement >> patient requires GT site BID dressing change, dc planning. Prevacid GT daily prn transfusions zofran prn electrolyte correction abx fu labs The patient was seen and examined at bedside and all new and available data was reviewed in the patients chart. I agree with the above findings, impression and plan. (Patient seen earlier today. Signature stamp does not reflect patient encounter time.). - César Wilson MD Subjective Subjective limited Objective Last 24 Hour Vital Signs Date Time Temp Pulse Resp B/P (MAP) Pulse Ox O2 Delivery O2 Flow Rate FiO2 04/03/18 09:07 Room Air 04/03/18 08:00 98.9 90 18 148/65 (92) 97 98.9 04/03/18 04:10 97.9 75 18 132/82 (99) 97 97.9 04/03/18 00:00 97.7 76 18 146/87 (106) 99 97.7 04/02/18 21:00 Room Air 04/02/18 20:10 98.1 70 20 128/70 (89) 95 98.1 04/02/18 16:00 97.9 70 20 140/89 (106) 97 97.9 04/02/18 12:00 97.6 69 20 143/88 (106) 97 97.6 Intake and Output 04/02/18 04/03/18 19:00 07:00 Intake Total 1047.5 ml 1450.000 ml Balance 1047.5 ml 1450.000 ml Intake Free Water 200 ml 200 ml IV Total 262.5 ml 535.000 ml Tube Feeding 585 ml 715 ml # Voids 5 # Bowel Movements 1 Laboratory Tests Test 04/03/18 07:10 White Blood Count 5.8 K/UL (4.8-10.8) Red Blood Count 3.72 M/UL (4.70-6.10) L Hemoglobin 11.9 G/DL (14.2-18.0) L Hematocrit 36.4 % (42.0-52.0) L Mean Corpuscular Volume 98 FL (80-99) Mean Corpuscular Hemoglobin 32.0 PG (27.0-31.0) H Mean Corpuscular Hemoglobin Concent 32.7 G/DL (32.0-36.0) Red Cell Distribution Width 13.2 % (11.6-14.8) Platelet Count 154 K/UL (150-450) Mean Platelet Volume 7.4 FL (6.5-10.1) Neutrophils (%) (Auto) 39.0 % (45.0-75.0) L Lymphocytes (%) (Auto) 46.3 % (20.0-45.0) H Monocytes (%) (Auto) 8.1 % (1.0-10.0) Eosinophils (%) (Auto) 5.5 % (0.0-3.0) H Basophils (%) (Auto) 1.1 % (0.0-2.0) Sodium Level 138 MMOL/L (136-145) Potassium Level 4.5 MMOL/L (3.5-5.1) Chloride Level 106 MMOL/L (98-107) Carbon Dioxide Level 27 MMOL/L (21-32) Anion Gap 5 mmol/L (5-15) Blood Urea Nitrogen 21 mg/dL (7-18) H Creatinine 0.9 MG/DL (0.55-1.30) Estimat Glomerular Filtration Rate mL/min (>60) Glucose Level 139 MG/DL (74-106) H Calcium Level 8.1 MG/DL (8.5-10.1) L Vancomycin Level Trough 13.9 ug/mL (5.0-12.0) H Height (Feet): 5 Height (Inches): 11.00 Weight (Pounds): 245 Cardiovascular: normal rate Respiratory/Chest: lungs clear Abdominal Exam: normal bowel sounds, non tender, soft Jevon Ruiz NP Apr 03, 2018 11:14
--- NOTE | 2018-04-03 11:37 | General Progress Note ---
Assessment/Plan Problem List: (1) Cellulitis of abdominal wall ICD Codes: L03.311 - Cellulitis of abdominal wall SNOMED: 38313661 (2) Feeding problem (3) Feeding by G-tube ICD Codes: Z93.1 - Feeding by G-tube SNOMED: 603750366 (4) Encounter for feeding tube placement ICD Codes: Z87.898 - Personal history of other specified conditions SNOMED: 849234073 (5) Cellulitis of abdominal wall ICD Codes: L03.311 - Cellulitis of abdominal wall SNOMED: 79690090 (6) Anemia ICD Codes: D64.9 - Anemia SNOMED: 926519359 Status: progressing Assessment/Plan cellulitis aroung peg malpostioned peg exchange peg per gi will be done today afebrile reviewed chart and labs will discuss w gi re plan of care Subjective ROS Limited/Unobtainable: Yes Allergies: Coded Allergies: MORPHINE (Unverified Allergy, Unknown, 03/31/18) Objective Last 24 Hour Vital Signs Date Time Temp Pulse Resp B/P (MAP) Pulse Ox O2 Delivery O2 Flow Rate FiO2 04/03/18 09:07 Room Air 04/03/18 08:00 98.9 90 18 148/65 (92) 97 98.9 04/03/18 04:10 97.9 75 18 132/82 (99) 97 97.9 04/03/18 00:00 97.7 76 18 146/87 (106) 99 97.7 04/02/18 21:00 Room Air 04/02/18 20:10 98.1 70 20 128/70 (89) 95 98.1 04/02/18 16:00 97.9 70 20 140/89 (106) 97 97.9 04/02/18 12:00 97.6 69 20 143/88 (106) 97 97.6 Intake and Output 04/02/18 04/03/18 19:00 07:00 Intake Total 1047.5 ml 1450.000 ml Balance 1047.5 ml 1450.000 ml Intake Free Water 200 ml 200 ml IV Total 262.5 ml 535.000 ml Tube Feeding 585 ml 715 ml # Voids 5 # Bowel Movements 1 Laboratory Tests 04/03/18 07:10: White Blood Count 5.8, Red Blood Count 3.72L, Hemoglobin 11.9L, Hematocrit 36.4L , Mean Corpuscular Volume 98, Mean Corpuscular Hemoglobin 32.0H, Mean Corpuscular Hemoglobin Concent 32.7, Red Cell Distribution Width 13.2, Platelet Count 154, Mean Platelet Volume 7.4, Neutrophils (%) (Auto) 39.0L, Lymphocytes ( %) (Auto) 46.3H, Monocytes (%) (Auto) 8.1, Eosinophils (%) (Auto) 5.5H, Basophils (%) (Auto) 1.1, Sodium Level 138, Potassium Level 4.5, Chloride Level 106, Carbon Dioxide Level 27, Anion Gap 5, Blood Urea Nitrogen 21H, Creatinine 0.9, Estimat Glomerular Filtration Rate , Glucose Level 139H, Calcium Level 8.1L , Vancomycin Level Trough 13.9H Height (Feet): 5 Height (Inches): 11.00 Weight (Pounds): 245 General Appearance: confused Cardiovascular: regularly irregular Respiratory/Chest: lungs clear Aliza Faria MD Apr 03, 2018 11:37
[2018-04-03 12:00] VITALS: BP 146/70
--- NOTE | 2018-04-03 12:28 | Infectious Diseases Prog Note ---
Assessment/Plan Assessment/Plan A: 1. Gastrostomy malfunctioning and infection. 2. Minimal abdominal wall cellulitis. 3. MRSA colonization. 4. Dementia. 5.VRE colonization. 6. Hepatitis C. 7. Seizure disorder. P; discontinue Zosyn & Vancomycin Start on Bactrim & Amoxicillin Subjective ROS Limited/Unobtainable: Yes Allergies: Coded Allergies: MORPHINE (Unverified Allergy, Unknown, 03/31/18) Objective Vital Signs Last 24 Hour Vital Signs Date Time Temp Pulse Resp B/P (MAP) Pulse Ox O2 Delivery O2 Flow Rate FiO2 04/03/18 12:00 98.9 96 18 146/70 (95) 97 98.9 04/03/18 09:07 Room Air 04/03/18 08:00 98.9 90 18 148/65 (92) 97 98.9 04/03/18 04:10 97.9 75 18 132/82 (99) 97 97.9 04/03/18 00:00 97.7 76 18 146/87 (106) 99 97.7 04/02/18 21:00 Room Air 04/02/18 20:10 98.1 70 20 128/70 (89) 95 98.1 04/02/18 16:00 97.9 70 20 140/89 (106) 97 97.9 Height (Feet): 5 Height (Inches): 11.00 Weight (Pounds): 245 General Appearance: no acute distress HEENT: mucous membranes moist Respiratory/Chest: lungs clear Cardiovascular: normal rate Abdomen: soft, non tender, other - GT feeding Extremities: other - generalized edema Neurologic/Psychiatric: aphasia Microbiology Date/Time Source Procedure Growth Status 03/31/18 14:05 Blood Blood Culture - Preliminary NO GROWTH AFTER 48 HOURS Resulted 03/31/18 13:55 Blood Blood Culture - Preliminary NO GROWTH AFTER 48 HOURS Resulted 03/31/18 16:00 Nasal Nares MRSA Culture - Final Staphylococcus Aureus - Mrsa Complete 03/31/18 16:00 Rectum VRE Culture - Final Enterococcus Faecium - Vre Complete 03/31/18 16:00 Rectum - Final NO CARBAPENEM-RESISTANT ENTEROBACTERI... Complete 03/31/18 16:00 Abdomen Gram Stain - Final Complete 03/31/18 16:00 Wound Culture - Final Escherichia Coli - Esbl Citrobacter Diversus Enterococcus Faecalis - Vre Complete Laboratory Tests Test 04/03/18 07:10 White Blood Count 5.8 K/UL (4.8-10.8) Red Blood Count 3.72 M/UL (4.70-6.10) L Hemoglobin 11.9 G/DL (14.2-18.0) L Hematocrit 36.4 % (42.0-52.0) L Mean Corpuscular Volume 98 FL (80-99) Mean Corpuscular Hemoglobin 32.0 PG (27.0-31.0) H Mean Corpuscular Hemoglobin Concent 32.7 G/DL (32.0-36.0) Red Cell Distribution Width 13.2 % (11.6-14.8) Platelet Count 154 K/UL (150-450) Mean Platelet Volume 7.4 FL (6.5-10.1) Neutrophils (%) (Auto) 39.0 % (45.0-75.0) L Lymphocytes (%) (Auto) 46.3 % (20.0-45.0) H Monocytes (%) (Auto) 8.1 % (1.0-10.0) Eosinophils (%) (Auto) 5.5 % (0.0-3.0) H Basophils (%) (Auto) 1.1 % (0.0-2.0) Sodium Level 138 MMOL/L (136-145) Potassium Level 4.5 MMOL/L (3.5-5.1) Chloride Level 106 MMOL/L (98-107) Carbon Dioxide Level 27 MMOL/L (21-32) Anion Gap 5 mmol/L (5-15) Blood Urea Nitrogen 21 mg/dL (7-18) H Creatinine 0.9 MG/DL (0.55-1.30) Estimat Glomerular Filtration Rate mL/min (>60) Glucose Level 139 MG/DL (74-106) H Calcium Level 8.1 MG/DL (8.5-10.1) L Vancomycin Level Trough 13.9 ug/mL (5.0-12.0) H Current Medications Medications (Trade) Dose Ordered Sig/Jamaal Route PRN Reason Start Time Stop Time Status Last Admin Dose Admin Acetaminophen (Tylenol) 650 mg Q4H PRN ORAL Mild Pain (Pain Scale 1-3) 03/31/18 19:00 04/30/18 18:59 Acetaminophen (Tylenol) 650 mg Q4H PRN ORAL fever 7/16/18 19:00 04/30/18 18:59 Dextrose (Dextrose 50%) 25 ml STAT PRN IV Hypoglycemia 03/31/18 19:00 04/30/18 18:59 Dextrose (Dextrose 50%) 50 ml STAT PRN IV Hypoglycemia 03/31/18 19:00 04/30/18 18:59 Docusate Sodium (Colace) 100 mg EVERY 12 HOURS GT 04/02/18 09:00 04/30/18 20:59 04/03/18 07:45 Lansoprazole (Prevacid) 30 mg DAILY GT 04/01/18 09:00 05/01/18 08:59 04/03/18 07:45 Ondansetron HCl (Zofran) 4 mg Q6H PRN IVP Nausea & Vomiting 03/31/18 19:00 04/30/18 18:59 Piperacillin Sod/ Tazobactam Sod 3.375 gm/Dextrose 110 ml @ 27.5 mls/hr Q8H IVPB 03/31/18 23:00 04/07/18 22:59 04/03/18 06:50 Polyethylene Glycol (Miralax) 17 gm HSPRN PRN ORAL Constipation 03/31/18 21:00 04/30/18 20:59 Sodium 1,000 ml @ 75 mls/hr [id number] IV 03/31/18 20:00 04/30/18 19:59 04/01/18 21:24 Vancomycin HCl (Vanco rx to dose) 1 ea DAILY PRN MISC Per rx protocol 04/01/18 13:45 05/01/18 13:44 Vancomycin HCl 1 gm/Dextrose 275 ml @ 183.708 mls/hr Q12H IVPB 04/02/18 08:00 04/07/18 07:59 04/03/18 08:19 Lopez Almaraz MD Apr 03, 2018 12:28
[2018-04-03] MEDS: Amoxicillin 250mg/5ml susp 150ml GT SCH ×2 (14:37→23:00)
[2018-04-03 16:46] VITALS: BP 138/72
[2018-04-03 19:59] VITALS: BP 125/83
[2018-04-03] MEDS: Bactrim Susp 20ml GT SCH (21:05)
[2018-04-04] VITALS: BP 154/79
[2018-04-04] MEDS: 1/2NS w/KCl 20mEq 1000ml 1,000 ML IV SCH (04:00)
[2018-04-04 04:45] VITALS: BP 131/61
[2018-04-04] MEDS: Amoxicillin 250mg/5ml susp 150ml GT SCH (06:10)
[2018-04-04 07:18] LABS: EOSINOPHILS % (AUTO) 4.5 % (0.0-3.0); HEMOGLOBIN 11.3 G/DL (14.2-18.0); LYMPHOCYTES % (AUTO) 47.6 % (20.0-45.0); MEAN CORPUSCULAR VOLUME 98 FL (80-99); MONOCYTES % (AUTO) 8.6 % (1.0-10.0); NEUTROPHILS % (AUTO) 38.3 % (45.0-75.0); PLATELET COUNT 171 K/UL (150-450); RED BLOOD COUNT 3.46 M/UL (4.70-6.10); RED CELL DISTRIBUTION WIDTH 13.6 % (11.6-14.8); WHITE BLOOD COUNT 6.7 K/UL (4.8-10.8)
[2018-04-04 07:49] LABS: ANION GAP 8 mmol/L (5-15); BLOOD UREA NITROGEN 16 mg/dL (7-18); CALCIUM 8.2 MG/DL (8.5-10.1); CARBON DIOXIDE 22 MMOL/L (21-32); CHLORIDE 105 MMOL/L (98-107); POTASSIUM 4.7 MMOL/L (3.5-5.1); SODIUM 135 MMOL/L (136-145)
[2018-04-04 08:11] VITALS: BP 159/86
[2018-04-04] MEDS: Docusate 100mg/10ml Liq GT SCH (09:08)
[2018-04-04] MEDS: Bactrim Susp 20ml GT SCH (09:08)
--- NOTE | 2018-04-04 11:13 | GI Progress Note ---
Assessment/Plan Problems: (1) Cellulitis at gastrostomy tube site ICD Codes: K94.22 - Gastrostomy infection; L03.319 - Cellulitis of trunk, unspecified SNOMED: 964344732, 320695850 (2) Feeding by G-tube ICD Codes: Z93.1 - Feeding by G-tube SNOMED: 304906877 (3) Anemia ICD Codes: D64.9 - Anemia SNOMED: 820732601 (4) Cellulitis of abdominal wall ICD Codes: L03.311 - Cellulitis of abdominal wall SNOMED: 11282178 (5) Limited mobility in bed SNOMED: 2302139 Status: stable Status Narrative Discussed with Dr. Wilson. Assessment/Plan 24fr GT changed at bedside with minimal leakage over the past 3 days >> defer J tube placement >> patient requires GT site BID dressing change, dc planning. Prevacid GT daily prn transfusions zofran prn electrolyte correction abx fu labs The patient was seen and examined at bedside and all new and available data was reviewed in the patients chart. I agree with the above findings, impression and plan. (Patient seen earlier today. Signature stamp does not reflect patient encounter time.). - César Wilson MD Subjective Subjective limited Objective Last 24 Hour Vital Signs Date Time Temp Pulse Resp B/P (MAP) Pulse Ox O2 Delivery O2 Flow Rate FiO2 04/04/18 09:00 Room Air 04/04/18 08:11 97.8 73 20 159/86 (110) 97 97.8 04/04/18 04:45 98.9 77 20 131/61 (84) 98 98.9 04/04/18 00:00 99.3 75 20 154/79 (104) 97 99.3 04/03/18 21:00 Room Air 04/03/18 19:59 98.7 75 20 125/83 (97) 97 98.7 04/03/18 16:46 98.2 94 18 138/72 (94) 97 98.2 04/03/18 12:00 98.9 96 18 146/70 (95) 97 98.9 Intake and Output 04/03/18 04/04/18 19:00 07:00 Intake Total 1035 ml 1710 ml Output Total 3 ml Balance 1035 ml 1707 ml Intake Free Water 260 ml 170 ml IV Total 450 ml 825 ml Tube Feeding 325 ml 715 ml Output Urine Total 3 ml # Voids 3 # Bowel Movements 2 1 Laboratory Tests Test 04/04/18 05:45 White Blood Count 6.7 K/UL (4.8-10.8) Red Blood Count 3.46 M/UL (4.70-6.10) L Hemoglobin 11.3 G/DL (14.2-18.0) L Hematocrit 34.0 % (42.0-52.0) L Mean Corpuscular Volume 98 FL (80-99) Mean Corpuscular Hemoglobin 32.7 PG (27.0-31.0) H Mean Corpuscular Hemoglobin Concent 33.3 G/DL (32.0-36.0) Red Cell Distribution Width 13.6 % (11.6-14.8) Platelet Count 171 K/UL (150-450) Mean Platelet Volume 7.4 FL (6.5-10.1) Neutrophils (%) (Auto) 38.3 % (45.0-75.0) L Lymphocytes (%) (Auto) 47.6 % (20.0-45.0) H Monocytes (%) (Auto) 8.6 % (1.0-10.0) Eosinophils (%) (Auto) 4.5 % (0.0-3.0) H Basophils (%) (Auto) 1.0 % (0.0-2.0) Sodium Level 135 MMOL/L (136-145) L Potassium Level 4.7 MMOL/L (3.5-5.1) Chloride Level 105 MMOL/L (98-107) Carbon Dioxide Level 22 MMOL/L (21-32) Anion Gap 8 mmol/L (5-15) Blood Urea Nitrogen 16 mg/dL (7-18) Creatinine 1.0 MG/DL (0.55-1.30) Estimat Glomerular Filtration Rate mL/min (>60) Glucose Level 138 MG/DL (74-106) H Calcium Level 8.2 MG/DL (8.5-10.1) L Height (Feet): 5 Height (Inches): 11.00 Weight (Pounds): 245 General Appearance: WD/WN, no apparent distress, alert Cardiovascular: normal rate Respiratory/Chest: normal breath sounds, no respiratory distress Abdominal Exam: normal bowel sounds, non tender, soft Extremities: non-tender Jevon Ruiz NP Apr 04, 2018 11:13
[2018-04-04] MEDS ORDERED: SULFAMETHOXAZO473 ML ORAL (11:38)
[2018-04-04] MEDS ORDERED: AMOXICILLI250 MG/5 M ORAL (11:38)
[2018-04-04 12:00] VITALS: BP 141/81
--- NOTE | 2018-04-04 13:01 | General Progress Note ---
Assessment/Plan Status: stable Assessment/Plan dementia encephalopathy seroquel prn Subjective Date patient seen: Apr 04, 2018 Neurologic/Psychiatric: Reports: anxiety, depressed, emotional problems Allergies: Coded Allergies: MORPHINE (Unverified Allergy, Unknown, 03/31/18) Objective Last 24 Hour Vital Signs Date Time Temp Pulse Resp B/P (MAP) Pulse Ox O2 Delivery O2 Flow Rate FiO2 04/04/18 12:00 98.0 77 18 141/81 (101) 97 98.0 04/04/18 09:00 Room Air 04/04/18 08:11 97.8 73 20 159/86 (110) 97 97.8 04/04/18 04:45 98.9 77 20 131/61 (84) 98 98.9 04/04/18 00:00 99.3 75 20 154/79 (104) 97 99.3 04/03/18 21:00 Room Air 04/03/18 19:59 98.7 75 20 125/83 (97) 97 98.7 04/03/18 16:46 98.2 94 18 138/72 (94) 97 98.2 Intake and Output 04/03/18 04/04/18 19:00 07:00 Intake Total 1035 ml 1710 ml Output Total 3 ml Balance 1035 ml 1707 ml Intake Free Water 260 ml 170 ml IV Total 450 ml 825 ml Tube Feeding 325 ml 715 ml Output Urine Total 3 ml # Voids 3 # Bowel Movements 2 1 Laboratory Tests 04/04/18 05:45: White Blood Count 6.7, Red Blood Count 3.46L, Hemoglobin 11.3L, Hematocrit 34.0L , Mean Corpuscular Volume 98, Mean Corpuscular Hemoglobin 32.7H, Mean Corpuscular Hemoglobin Concent 33.3, Red Cell Distribution Width 13.6, Platelet Count 171, Mean Platelet Volume 7.4, Neutrophils (%) (Auto) 38.3L, Lymphocytes ( %) (Auto) 47.6H, Monocytes (%) (Auto) 8.6, Eosinophils (%) (Auto) 4.5H, Basophils (%) (Auto) 1.0, Sodium Level 135L, Potassium Level 4.7, Chloride Level 105, Carbon Dioxide Level 22, Anion Gap 8, Blood Urea Nitrogen 16, Creatinine 1.0, Estimat Glomerular Filtration Rate , Glucose Level 138H, Calcium Level 8.2L Height (Feet): 5 Height (Inches): 11.00 Weight (Pounds): 245 General Appearance: WD/WN, no apparent distress, lethargic, confused Sue Rodriguez MD Apr 04, 2018 13:01
[2018-04-04] MEDS ORDERED: Amoxicillin 250mg/5ml susp 150ml ONE (14:42)
--- NOTE | 2018-04-07 09:11 | Discharge Summary ---
Discharge Summary Discharge Summary _ DATE OF ADMISSION: 03/31/2018 DATE OF DISCHARGE: 04/04/2018 REASON FOR ADMISSION: 77 years old male with past medical history of CVA, dementia, seizure disorder, dysphagia, G-tube, COPD, hepatitis C, heart failure, DNR/DNI status, presented from the care home facility with leaking G-tube. G-tube site was erythematous and indurated. Patient was nonverbal and unable to provide any information. Vital signs revealed no fever, stable heart rate and blood pressure. Laboratory workup revealed no leukocytosis, mild anemia with hemoglobin 11.9, hematocrit 36.0. Stable electrolytes and creatinine. Chest x-ray revealed no acute cardiopulmonary pathology. In emergency department old G-tube was removed. New G-tube was inserted , and G- tube placement was confirmed via KUB study using Gastrografin. Patient admitted with diagnosis of cellulitis of gastrostomy tube site, G-tube dislodgment. CONSULTANTS: ID specialist Dr. Almaraz GI specialist Dr. Wilson psychiatrist [facility] COURSE: Patient admitted. GI and ID consults were requested. GI seen and and evaluated patient. GI specialist changed G tube to a larger size, 24 Upper Sorbian gauge , at the bedside; minimal leakage over the past 3 day. GI specialist deferred J-tube placement at this time. G-tube site care provided with dressing twice a day and as needed. GI prophylaxis provided. Antiemetics were on board as needed. Hemoglobin and hematocrit were closely monitored with goal to keep hemoglobin above 7, no need for transfusion. Hemoglobin and hematocrit remained stable, most recent hemoglobin 11.3, hematocrit 34. Electrolytes and renal parameters were closely monitored. Nephrotoxins were avoided. ID doctor closely followed. Patient initially was on IV antibiotics. Blood culture negative. Wound culture revealed Escherichia coli ESBL, Citrobacter and Enterobacter VRE. Prior to discharge antibiotic changed to oral to complete the course. Venous duplex bilateral lower extremity was negative. Seizure precautions were maintained. No evidence of seizure activity while in the hospital. Liver enzymes remained stable. No complaints of abdominal pain. Bowel regimen instituted. Psychiatry seen and evaluated patient , and diagnosed patient with dementia and encephalopathy. Patient was on Seroquel on as needed basis. Patient was discharged to the care home facility. FINAL DIAGNOSES: Cellulitis G-tube site Feeding by G-tube Abdominal wall cellulitis Hepatitis C Seizure disorder Dementia Encephalopathy Anemia DISCHARGE MEDICATIONS: See Medication Reconciliation list. DISCHARGE INSTRUCTIONS: Patient was discharged to care home facility. Follow up with medical doctor at the facility. I have been assigned to dictate discharge summary for this account. I was not involved in the patient's management. Yahaira Crocker NP Apr 07, 2018 09:11
== END 2018-04-04 14:43 | DRG 393 ==
LOC: EDBD 12:29 → EMR 14:07 → 4W 14:20 → EDBEDREQ 15:27
PROC: 0D20XUZ Change Feeding Device in Upper Intestinal Tract, External Approach (ICD-10-PCS; principal; 2018-03-31)
DX: K94.22 Gastrostomy infection (principal); G93.40 Encephalopathy, unspecified; L03.311 Cellulitis of abdominal wall; K94.23 Gastrostomy malfunction; D64.9 Anemia, unspecified; Y83.3 Surgical operation with formation of external stoma as the cause of abnormal reaction of the patient, or of later complication, without mention of misadventure at the time of the procedure; B96.20 Unspecified Escherichia coli [E. coli] as the cause of diseases classified elsewhere; Z16.12 Extended spectrum beta lactamase (ESBL) resistance; B96.89 Other specified bacterial agents as the cause of diseases classified elsewhere; Z16.22 Resistance to vancomycin related antibiotics; B19.20 Unspecified viral hepatitis C without hepatic coma; G40.909 Epilepsy, unspecified, not intractable, without status epilepticus; F03.90 Unspecified dementia, unspecified severity, without behavioral disturbance, psychotic disturbance, mood disturbance, and anxiety; Z66 Do not resuscitate; Z88.6 Allergy status to analgesic agent; I50.9 Heart failure, unspecified; J44.9 Chronic obstructive pulmonary disease, unspecified; Z22.322 Carrier or suspected carrier of Methicillin resistant Staphylococcus aureus; Z86.73 Personal history of transient ischemic attack (TIA), and cerebral infarction without residual deficits; R13.10 Dysphagia, unspecified; N40.0 Benign prostatic hyperplasia without lower urinary tract symptoms; Z86.718 Personal history of other venous thrombosis and embolism; Z79.01 Long term (current) use of anticoagulants
CPT/HCPCS: 36415; 71045; 74018; 80048; 80053; 80202; 81003; 82962; 83605; 83735; 84100; 85025; 85610; 85730; 87040; 87070; 87081; 87181; 87205; 93970; 99285

== ENCOUNTER 2018-07-24 13:00 | Inpatient (IN) | payer MEDICARE, MEDICAID ==
[~2018-07-24] VITALS: Ht 177.8 cm; Wt 99.8 kg
[~2018-07-24 13:00] MED LIST changes: +AMOXICILLI250 MG/5 M ORAL; +SULFAMETHOXAZO473 ML ORAL
[2018-07-24 13:14] VITALS: BP 124/70
[2018-07-24 14:01] LABS: APPEARANCE,URINE CLEAR; BILIRUBIN, URINE NEGATIVE (NEGATIVE); GLUCOSE, URINE (UA) NEGATIVE (NEGATIVE); KETONES,URINE NEGATIVE (NEGATIVE); LEUKOCYTE ESTERASE ,URINE 1+ (NEGATIVE); NITRITE,URINE NEGATIVE (NEGATIVE); PH,URINE 6 (4.5-8.0); PROTEIN,URINE 2+ (NEGATIVE); UROBILINOGEN,URINE 1 MG/DL (0.0-1.0)
[2018-07-24 14:04] LABS: COLOR,URINE YELLOW
--- NOTE | 2018-07-24 14:08 | Emergency Room Report ---
History of Present Illness General Chief Complaint: Malfunctioning Gastric Tube Source: EMS Present Illness HPI 78M referred from [facility] due to malfunctioning G tube and also elevated INR. This was done at [facility] and reported to me by Dr. Faria. The patient cannot communicate meaningfully to me. Hx. limited due to clinical condition. Allergies: Coded Allergies: MORPHINE (Unverified Allergy, Unknown, 03/31/18) Nursing Documentation-PMH Past Medical History Deferred: No Family Available Hx Cardiac Problems: Yes Hx Hypertension: Yes Hx COPD: Yes Hx Diabetes: Yes Hx Cancer: No Hx Gastrointestinal Problems: Yes - GT placed prior to arrival. Hx Neurological Problems: Yes Hx Cerebrovascular Accident: Yes Hx Dementia: Yes Hx Encephalitis: Yes Hx Seizures: Yes Hx Aphasia: Yes Hx Dysphasia: Yes Hx Weakness: Yes Review of Systems All Other Systems: limited Physical Exam Vital Signs Date Time Temp Pulse Resp B/P (MAP) Pulse Ox O2 Delivery O2 Flow Rate FiO2 07/24/18 12:53 98.4 68 18 129/89 98 Room Air General Appearance: no apparent distress Head: normocephalic, atraumatic ENT: hearing grossly normal, normal voice Neck: full range of motion, supple Respiratory: no respiratory distress, speaking full sentences Gastrointestinal: other - g-tube; fresh bleeding visible and clots at site Musculoskeletal: no calf tenderness Neurologic: other - awake, looks around, nonverbal Psychiatric: mood/affect normal Skin: no rash Medical Decision Making Diagnostic Impression: Primary Impression: Malfunction of gastrostomy tube Additional Impression: Coagulopathy ER Course Dr. Faria had elevated INR at [facility]; pt. risks dehydration with inability to use G tube and elevated INR is higher risk. Rhythm Strip Diag. Results Rhythm Strip Time: 14:08 EP Interpretation: yes Rate: 96 Rhythm: NSR Last Vital Signs Date Time Temp Pulse Resp B/P (MAP) Pulse Ox O2 Delivery O2 Flow Rate FiO2 07/24/18 13:14 98.4 18 124/70 98 Room Air 07/24/18 12:53 68 Disposition: ADMITTED INPATIENT Condition: Serious Patient Instructions: Gastrostomy Tube Home Guide, Adult Srinivas Breen M.D. Jul 24, 2018 14:08
[2018-07-24 14:30] LABS: HEMATOCRIT 39.9 % (42.0-52.0); MEAN CORPUSCULAR VOLUME 95 FL (80-99); PLATELET COUNT 151 K/UL (150-450); RED CELL DISTRIBUTION WIDTH 13.9 % (11.6-14.8)
[2018-07-24 14:45] LABS: INR 1.7 (0.9-1.1)
[2018-07-24] MEDS ORDERED: ASPIRIN81 MG ORAL (14:58)
[2018-07-24] MEDS ORDERED: WARFARIN SODIUM4 MG ORAL (14:58)
[2018-07-24 16:47] LABS: ANION GAP 8 mmol/L (5-15); BLOOD UREA NITROGEN 28 mg/dL (7-18); CALCIUM 8.7 MG/DL (8.5-10.1); CARBON DIOXIDE 26 MMOL/L (21-32); CHLORIDE 106 MMOL/L (98-107); CREATININE 0.8 MG/DL (0.55-1.30); SODIUM 140 MMOL/L (136-145)
--- NOTE | 2018-07-24 16:47 | GI Initial Consult Note ---
History of Present Illness General Date patient seen: Jul 24, 2018 Time patient seen: 16:42 Reason for Hospitalization: Malfunctioning Gastric Tube Referring physician: VIDYA FARIA Reason for Consultation: GT SITE BLEEDING Present Illness HPI 78M referred from [facility] due to malfunctioning G tube and also elevated INR. This was done at [facility] and reported to me by Dr. Faria. The patient cannot communicate meaningfully to me. Hx. limited due to clinical condition. GI consulted for GT site bleeding. ROS limited, pt non verbal at baseline. All information obtained from medical record. Pt seen in ED, NAD noted to have active severe bleeding at the GT site. History as noted below. Labs and imaging studies still pending. Home Meds Reported Medications Warfarin Sod* (WARFARIN SOD*) 4 Mg Tablet, 4 MG ORAL DAILY, TAB 0 Refills 07/24/18 Aspirin* (ASPIRIN*) 81 Mg Tab.chew, 81 MG ORAL DAILY, TAB 07/24/18 Amoxicillin* (AMOXICILLIN*) 250 Mg/5 Ml Susp.recon, 500 MG ORAL EVERY 8 HOURS, # 150 ML 04/04/18 Sulfamethoxazole/Trimethoprim Susp* (BACTRIM SUSP*) 473 Ml Oral.susp, 20 ML ORAL TWICE A DAY, ML 04/04/18 Zinc Sulfate (ZINC SULFATE*) 220 Mg Capsule, 220 MG GT DAILY, CAP 0 Refills 04/09/17 Tamsulosin Hcl (TAMSULOSIN HCL*) 0.4 Mg Cap.er.24h, 0.4 MG GT BEDTIME, CAP 04/09/17 Amino Acids/Protein Hydrolys (PRO-STAT LIQUID) 30 Ml Liquid.pkt, 30 ML GT DAILY , ML 04/09/17 Potassium Chloride (POTASSIUM CHLORIDE) 40 Meq/15 Ml Liquid, 20 MEQ PO TID, ML 04/09/17 Omeprazole (OMEPRAZOLE) 20 Mg Capsule.dr, 40 MG ORAL DAILY, CAP 04/09/17 Magnesium Hydroxide* (MILK OF MAGNESIA*) 400 Mg/5 Ml Oral.susp, 30 ML ORAL DAILY PRN for Constipation, ML 04/09/17 Metoprolol Tartrate* (METOPROLOL TARTRATE*) 25 Mg Tablet, 25 MG GT DAILY, TAB 04/09/17 Na Phos,M-B/Na Phos,Di-Ba* (FLEET ENEMA*) 133 Ml Enema, 133 ML RECTAL DAILY PRN for Constipation, ML 0 Refills 04/09/17 Bisacodyl (BISACODYL) 10 Mg Supp.rect, 10 MG RC DAILY PRN for Constipation, SUPP 04/09/17 Calcium Carbonate (CALCIUM) 500 Mg Tablet, 500 MG GT DAILY, TAB 04/09/17 Doxazosin Mesylate* (CARDURA*) 1 Mg Tablet, 1 MG GT DAILY, TAB 04/09/17 Warfarin Sod* (WARFARIN SOD*) 1 Mg Tablet, 2.5 MG GT DAILY, TAB 12/10/16 Atorvastatin Calcium* (ATORVASTATIN CALCIUM*) 20 Mg Tablet, 20 MG GT BEDTIME, TAB 11/26/16 Acetaminophen* (ACETAMINOPHEN 325MG TABLET*) 325 Mg Tablet, 650 MG GT Q4H PRN for Mild Pain/Temp > 100.5, TAB 03/04/15 Tramadol Hcl* (ULTRAM*) 50 Mg Tablet, 50 MG GT EVERY 6 HOURS, TAB 0 Refills 02/23/15 Vit C/Ascorbate Ca/Ascorb Sod (VITAMIN C 500 MG/15 ML LIQUID) 500 Mg/15 Ml Liquid, 500 MG GT DAILY, ML 02/23/15 Ondansetron* (ZOFRAN*) 4 Mg Tablet, 4 MG ORAL Q6H PRN for Nausea & Vomiting, TAB 02/23/15 Multivitamin with Minerals (Multivitamins with Minerals) 1 Each Tablet, 1 TAB GT DAILY, TAB 02/23/15 Furosemide* (LASIX*) 20 Mg Tablet, 20 MG GT DAILY, TAB 02/23/15 Docusate Sodium (Docusate Sodium) 100 Mg/10 Ml Udc, 100 MG GT DAILY, EA 02/23/15 Clonidine Hcl* (CATAPRES*) 0.1 Mg Tablet, 0.1 MG GT PRN for For High Blood Pressure, TAB 05/13/13 Amlodipine Besylate (Norvasc) 2.5 Mg Tab, 2.5 MG GT BID, TAB 05/13/13 Phosphorus (Phospha 250 Neutral Tablet) 250 Mg Tab, 250 MG GT BID, TAB 05/13/13 Valproic Acid (Depakene) 250 Mg Cap, 500 MG GT TID, CAP 05/13/13 Docusate Sodium* (COLACE*) 100 Mg Capsule, 100 MG GT TWICE A DAY, CAP 05/13/13 Pantoprazole* (PANTOPRAZOLE*) 40 Mg Tablet.dr, 40 MG GT DAILY 05/13/13 Tamsulosin HCl (Flomax) 0.4 Mg Cap, 0.4 MG GT DAILY, #30 TAB 0 Refills 05/13/13 Albuterol Sulfate* (ALBUTEROL SULFATE HHN*) 2.5 Mg/3 Ml Vial.neb, 2.5 MG HHN Q4HR PRN 03/30/13 Clonidine Hcl* (CATAPRES*) 0.1 Mg Tablet, 0.1 MG GT Q8HR PRN 03/30/13 Valproic Acid (Depakene) 250 Mg Cap, 500 MG GT TID 03/30/13 Med list reviewed/reconciled: Yes Allergies: Coded Allergies: MORPHINE (Unverified Allergy, Unknown, 03/31/18) Patient History Limited by: medical condition History Provided By: Medical Record [facility] Narrative Past Medical History Deferred: No Family Available Hx Cardiac Problems: Yes Hx Hypertension: Yes Hx COPD: Yes Hx Diabetes: Yes Hx Cancer: No Hx Gastrointestinal Problems: Yes - GT placed prior to arrival. Hx Neurological Problems: Yes Hx Cerebrovascular Accident: Yes Hx Dementia: Yes Hx Encephalitis: Yes Hx Seizures: Yes Hx Aphasia: Yes Hx Dysphasia: Yes Hx Weakness: Yes Social History: Denies: smoking, alcohol use, drug use, other Review of Systems All Other Systems: limited Physical Exam Vital Signs Date Time Temp Pulse Resp B/P (MAP) Pulse Ox O2 Delivery O2 Flow Rate FiO2 07/24/18 12:53 98.4 68 18 129/89 98 Room Air Sp02 EP Interpretation: reviewed Labs Laboratory Tests Test 07/24/18 13:44 07/24/18 14:15 07/24/18 14:35 07/24/18 16:15 Urine Color Yellow Urine Appearance Clear Urine pH 6 (4.5-8.0) Urine Specific [place] 1.020 (1.005-1.035) Urine Protein 2+ (NEGATIVE) H Urine Glucose (UA) Negative (NEGATIVE) Urine Ketones Negative (NEGATIVE) Urine Blood Negative (NEGATIVE) Urine Nitrite Negative (NEGATIVE) Urine Bilirubin Negative (NEGATIVE) Urine Urobilinogen 1 MG/DL (0.0-1.0) H Urine Leukocyte Esterase 1+ (NEGATIVE) H Urine RBC 0-2 /HPF (0 - 0) H Urine WBC 2-4 /HPF (0 - 0) Urine Squamous Epithelial Cells Occasional /LPF Urine Bacteria Few /HPF (NONE) White Blood Count 6.0 K/UL (4.8-10.8) Red Blood Count 4.20 M/UL (4.70-6.10) L Hemoglobin 13.0 G/DL (14.2-18.0) L Hematocrit 39.9 % (42.0-52.0) L Mean Corpuscular Volume 95 FL (80-99) Mean Corpuscular Hemoglobin 30.9 PG (27.0-31.0) Mean Corpuscular Hemoglobin Concent 32.6 G/DL (32.0-36.0) Red Cell Distribution Width 13.9 % (11.6-14.8) Platelet Count 151 K/UL (150-450) Mean Platelet Volume 8.3 FL (6.5-10.1) Neutrophils (%) (Auto) % (45.0-75.0) Lymphocytes (%) (Auto) % (20.0-45.0) Monocytes (%) (Auto) % (1.0-10.0) Eosinophils (%) (Auto) % (0.0-3.0) Basophils (%) (Auto) % (0.0-2.0) Differential Total Cells Counted 100 Neutrophils % (Manual) 50 % (45-75) Lymphocytes % (Manual) 44 % (20-45) Monocytes % (Manual) 4 % (1-10) Eosinophils % (Manual) 2 % (0-3) Basophils % (Manual) 0 % (0-2) Band Neutrophils 0 % (0-8) Platelet Estimate Adequate Platelet Morphology Normal Red Blood Cell Morphology Normal Prothrombin Time 17.6 SEC (9.30-11.50) H Prothromb Time International Ratio 1.7 (0.9-1.1) H Sodium Level Pending Potassium Level Pending Chloride Level Pending Carbon Dioxide Level Pending Blood Urea Nitrogen Pending Creatinine Pending Estimat Glomerular Filtration Rate Pending Glucose Level Pending Calcium Level Pending Total Bilirubin Pending Aspartate Amino Transf (AST/SGOT) Pending Alanine Aminotransferase (ALT/SGPT) Pending Alkaline Phosphatase Pending Total Protein Pending Albumin Pending Globulin Pending General Appearance: no apparent distress Head: normocephalic EENT: normal ENT inspection Neck: supple Respiratory: no respiratory distress Gastrointestinal: soft, gt - active bleed Genitourinary: normal inspection Musculoskeletal: back normal Neurologic: alert Skin: normal inspection, normal color, no rash, warm/dry Lymphatic: normal inspection, no adenopathy GI: Plan Problems: (1) Limited mobility in bed (2) Feeding by G-tube (3) Anemia (4) Malfunction of gastrostomy tube Plan GT removed at bedside in ED, the patient will require GT replacement. will allow the old GT site to close over the weekend, plan to schedule PEG next saturday. 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 Wilson. Thank you for this patient referral, we will follow. The patient was seen and examined at bedside and all new and available data was reviewed in the patients chart. I agree with the above findings, impression and plan. (Patient seen earlier today. Signature stamp does not reflect patient encounter time.). - MD Sara BargerRadha-Nic SALES TRAINER Jul 24, 2018 16:47
[2018-07-24 16:52] LABS: ALANINE AMINOTRANSFERASE 21 U/L (12-78); ALBUMIN 2.5 G/DL (3.4-5.0); ALBUMIN/GLOBULIN RATIO 0.4 (1.0-2.7); ALKALINE PHOSPHATASE 86 U/L (46-116); ASPARTATE AMINO TRANSFERASE 23 U/L (15-37); BILIRUBIN,TOTAL 0.4 MG/DL (0.2-1.0)
[2018-07-24 16:59] VITALS: BP 129/69
[2018-07-24 20:00] VITALS: BP 121/69
[2018-07-24] MEDS: Pantoprazole Inj IVP SCH (20:42)
[2018-07-25] VITALS: BP 111/71
[2018-07-25 04:01] VITALS: BP 123/63
[2018-07-25 06:33] LABS: INR 1.8 (0.9-1.1)
[2018-07-25 06:35] LABS: ALANINE AMINOTRANSFERASE 19 U/L (12-78); ALBUMIN 2.5 G/DL (3.4-5.0); ALBUMIN/GLOBULIN RATIO 0.4 (1.0-2.7); ALKALINE PHOSPHATASE 88 U/L (46-116); ANION GAP 5 mmol/L (5-15); ASPARTATE AMINO TRANSFERASE 26 U/L (15-37); BILIRUBIN,TOTAL 0.7 MG/DL (0.2-1.0); BLOOD UREA NITROGEN 29 mg/dL (7-18); CALCIUM 8.5 MG/DL (8.5-10.1); CARBON DIOXIDE 28 MMOL/L (21-32); CHLORIDE 106 MMOL/L (98-107); CREATININE 0.9 MG/DL (0.55-1.30); POTASSIUM 3.9 MMOL/L (3.5-5.1); SODIUM 139 MMOL/L (136-145)
[2018-07-25 06:39] LABS: BASOPHILS % (AUTO) 1.3 % (0.0-2.0); EOSINOPHILS % (AUTO) 2.7 % (0.0-3.0); HEMATOCRIT 37.6 % (42.0-52.0); HEMOGLOBIN 12.4 G/DL (14.2-18.0); MEAN CORPUSCULAR VOLUME 94 FL (80-99); MONOCYTES % (AUTO) 6.7 % (1.0-10.0); NEUTROPHILS % (AUTO) 43.3 % (45.0-75.0); PLATELET COUNT 150 K/UL (150-450); RED BLOOD COUNT 3.98 M/UL (4.70-6.10); RED CELL DISTRIBUTION WIDTH 13.9 % (11.6-14.8); WHITE BLOOD COUNT 6.4 K/UL (4.8-10.8)
--- NOTE | 2018-07-25 06:46 | History and Physical Report ---
DATE OF ADMISSION: 07/24/2018 HISTORY OF PRESENT ILLNESS: The patient is nonverbal. Unable to get history. The patient is admitted for leaking around the G-tube and also for blood around the G-tube and also for malnutrition. The patient's INR was complicated since the patient is on Coumadin and INR is elevated, so we have to hold the before we all those reasons. PAST MEDICAL HISTORY: History of organic brain syndrome, atrial fibrillation, constipation, hyperlipidemia, hypertension, GERD, BPH, . PAST SURGICAL HISTORY: PEG. MEDICATIONS: Lipitor, Colace, metoprolol, multivitamin, omeprazole, Flomax, valproic acid, Coumadin, and zinc. ALLERGIES: Morphine. FAMILY HISTORY: Noncontributory. SOCIAL HISTORY: Unable to obtain. REVIEW OF SYSTEMS: Comes from a group home . PHYSICAL EXAMINATION: VITAL SIGNS: Temperature 98.4, pulse 68, and blood pressure 129/89. HEENT: PERRLA. NECK: Supple. No lymphadenopathy. CHEST: Clear to auscultation. CARDIOVASCULAR: Irregularly irregular. GASTROINTESTINAL: from the G-tube site. Abdomen is soft and nontender. . EXTREMITIES: Reflexes on both sides. LABORATORY DATA: WBC of , hemoglobin 13, and platelets 151,000. Sodium 140, potassium 4, BUN of 28, creatinine 0.8, and glucose of 143. INR was 1.7 per ER doctor. ASSESSMENT AND PLAN: 1. The patient has leaking around the G-tube site. Dr. Wilson has been consulted. 2. For , Dr. Duke has been consulted. 3. For G-tube replacement and repair, Dr. Wilson has been consulted, and Dr. Abdifatah Ramirez is going to also help with holding the Coumadin to reverse the INR if needed, so Dr. Wilson can go ahead and proceed with the procedure. Aliza Faria M.D. DR: KIMBER JOB#: [id number] CC: JOSE CARLOS
--- NOTE | 2018-07-25 06:47 | Consultation ---
Consult Note Consult Note Hematology Oncology Consultation DOS: 07/25/18 Reason for Hospitalization: Malfunctioning Gastric Tube Referring physician: VIDYA FARIA Reason for Consultation: GT SITE BLEEDING, as well as supertherapeutic inr HPI 78M referred from [facility] due to malfunctioning G tube and also elevated INR. This was done at [facility] and reported to me by Dr. Faria. The patient cannot communicate meaningfully to me. Hx. limited due to clinical condition. GI consulted for GT site bleeding. ROS limited, pt non verbal at baseline. All information obtained from medical record. Pt seen in ED, NAD noted to have active severe bleeding at the GT site. History as noted below. Labs and imaging studies still pending. Medications Warfarin Sod* (WARFARIN SOD*) 4 Mg Tablet, 4 MG ORAL DAILY, TAB 0 Refills 07/24/18 Aspirin* (ASPIRIN*) 81 Mg Tab.chew, 81 MG ORAL DAILY, TAB 07/24/18 Amoxicillin* (AMOXICILLIN*) 250 Mg/5 Ml Susp.recon, 500 MG ORAL EVERY 8 HOURS, # 150 ML 04/04/18 Sulfamethoxazole/Trimethoprim Susp* (BACTRIM SUSP*) 473 Ml Oral.susp, 20 ML ORAL TWICE A DAY, ML 04/04/18 Zinc Sulfate (ZINC SULFATE*) 220 Mg Capsule, 220 MG GT DAILY, CAP 0 Refills 04/09/17 Tamsulosin Hcl (TAMSULOSIN HCL*) 0.4 Mg Cap.er.24h, 0.4 MG GT BEDTIME, CAP 04/09/17 Amino Acids/Protein Hydrolys (PRO-STAT LIQUID) 30 Ml Liquid.pkt, 30 ML GT DAILY , ML 04/09/17 Potassium Chloride (POTASSIUM CHLORIDE) 40 Meq/15 Ml Liquid, 20 MEQ PO TID, ML 04/09/17 Omeprazole (OMEPRAZOLE) 20 Mg Capsule.dr, 40 MG ORAL DAILY, CAP 04/09/17 Magnesium Hydroxide* (MILK OF MAGNESIA*) 400 Mg/5 Ml Oral.susp, 30 ML ORAL DAILY PRN for Constipation, ML 04/09/17 Metoprolol Tartrate* (METOPROLOL TARTRATE*) 25 Mg Tablet, 25 MG GT DAILY, TAB 04/09/17 Na Phos,M-B/Na Phos,Di-Ba* (FLEET ENEMA*) 133 Ml Enema, 133 ML RECTAL DAILY PRN for Constipation, ML 0 Refills 04/09/17 Bisacodyl (BISACODYL) 10 Mg Supp.rect, 10 MG RC DAILY PRN for Constipation, SUPP 04/09/17 Calcium Carbonate (CALCIUM) 500 Mg Tablet, 500 MG GT DAILY, TAB 04/09/17 Doxazosin Mesylate* (CARDURA*) 1 Mg Tablet, 1 MG GT DAILY, TAB 04/09/17 Warfarin Sod* (WARFARIN SOD*) 1 Mg Tablet, 2.5 MG GT DAILY, TAB 12/10/16 Atorvastatin Calcium* (ATORVASTATIN CALCIUM*) 20 Mg Tablet, 20 MG GT BEDTIME, TAB 11/26/16 Acetaminophen* (ACETAMINOPHEN 325MG TABLET*) 325 Mg Tablet, 650 MG GT Q4H PRN for Mild Pain/Temp > 100.5, TAB 03/04/15 Tramadol Hcl* (ULTRAM*) 50 Mg Tablet, 50 MG GT EVERY 6 HOURS, TAB 0 Refills 02/23/15 Vit C/Ascorbate Ca/Ascorb Sod (VITAMIN C 500 MG/15 ML LIQUID) 500 Mg/15 Ml Liquid, 500 MG GT DAILY, ML 02/23/15 Ondansetron* (ZOFRAN*) 4 Mg Tablet, 4 MG ORAL Q6H PRN for Nausea & Vomiting, TAB 02/23/15 Multivitamin with Minerals (Multivitamins with Minerals) 1 Each Tablet, 1 TAB GT DAILY, TAB 02/23/15 Furosemide* (LASIX*) 20 Mg Tablet, 20 MG GT DAILY, TAB 02/23/15 Docusate Sodium (Docusate Sodium) 100 Mg/10 Ml Udc, 100 MG GT DAILY, EA 02/23/15 Clonidine Hcl* (CATAPRES*) 0.1 Mg Tablet, 0.1 MG GT PRN for For High Blood Pressure, TAB 05/13/13 Amlodipine Besylate (Norvasc) 2.5 Mg Tab, 2.5 MG GT BID, TAB 05/13/13 Phosphorus (Phospha 250 Neutral Tablet) 250 Mg Tab, 250 MG GT BID, TAB 05/13/13 Valproic Acid (Depakene) 250 Mg Cap, 500 MG GT TID, CAP 05/13/13 Docusate Sodium* (COLACE*) 100 Mg Capsule, 100 MG GT TWICE A DAY, CAP 05/13/13 Pantoprazole* (PANTOPRAZOLE*) 40 Mg Tablet.dr, 40 MG GT DAILY 05/13/13 Tamsulosin HCl (Flomax) 0.4 Mg Cap, 0.4 MG GT DAILY, #30 TAB 0 Refills 05/13/13 Albuterol Sulfate* (ALBUTEROL SULFATE HHN*) 2.5 Mg/3 Ml Vial.neb, 2.5 MG HHN Q4HR PRN 03/30/13 Clonidine Hcl* (CATAPRES*) 0.1 Mg Tablet, 0.1 MG GT Q8HR PRN 03/30/13 Valproic Acid (Depakene) 250 Mg Cap, 500 MG GT TID 03/30/13 Med list reviewed/reconciled: Yes Allergies: Coded Allergies: MORPHINE (Unverified Allergy, Unknown, 03/31/18) Limited by: medical condition History Provided By: Medical Record [facility] Narrative Past Medical History Deferred: No Family Available Hx Cardiac Problems: Yes Hx Hypertension: Yes Hx COPD: Yes Hx Diabetes: Yes Hx Cancer: No Hx Gastrointestinal Problems: Yes - GT placed prior to arrival. Hx Neurological Problems: Yes Hx Cerebrovascular Accident: Yes Hx Dementia: Yes Hx Encephalitis: Yes Hx Seizures: Yes Hx Aphasia: Yes Hx Dysphasia: Yes Hx Weakness: Yes Social History: Denies: smoking, alcohol use, drug use, other Review of Systems All Other Systems: limited Physical Exam Last 24 Hour Vital Signs Date Time Temp Pulse Resp B/P (MAP) Pulse Ox O2 Delivery O2 Flow Rate FiO2 07/25/18 04:01 97.9 64 20 123/63 (83) 94 07/25/18 00:00 98.4 65 20 111/71 (84) 98 07/24/18 21:00 Room Air 07/24/18 20:00 98.2 76 20 121/69 (86) 96 07/24/18 19:54 Room Air 07/24/18 18:03 98.4 18 129/69 98 Room Air 07/24/18 16:59 98.4 18 129/69 98 Room Air 07/24/18 13:14 98.4 18 124/70 98 Room Air 07/24/18 12:53 98.4 68 18 129/89 98 Room Air Labs Laboratory Tests Test 07/24/18 13:44 07/24/18 14:15 07/24/18 14:35 07/24/18 16:15 Urine Color Yellow Urine Appearance Clear Urine pH 6 (4.5-8.0) Urine Specific [place] 1.020 (1.005-1.035) Urine Protein 2+ (NEGATIVE) H Urine Glucose (UA) Negative (NEGATIVE) Urine Ketones Negative (NEGATIVE) Urine Blood Negative (NEGATIVE) Urine Nitrite Negative (NEGATIVE) Urine Bilirubin Negative (NEGATIVE) Urine Urobilinogen 1 MG/DL (0.0-1.0) H Urine Leukocyte Esterase 1+ (NEGATIVE) H Urine RBC 0-2 /HPF (0 - 0) H Urine WBC 2-4 /HPF (0 - 0) Urine Squamous Epithelial Cells Occasional /LPF Urine Bacteria Few /HPF (NONE) White Blood Count 6.0 K/UL (4.8-10.8) Red Blood Count 4.20 M/UL (4.70-6.10) L Hemoglobin 13.0 G/DL (14.2-18.0) L Hematocrit 39.9 % (42.0-52.0) L Mean Corpuscular Volume 95 FL (80-99) Mean Corpuscular Hemoglobin 30.9 PG (27.0-31.0) Mean Corpuscular Hemoglobin Concent 32.6 G/DL (32.0-36.0) Red Cell Distribution Width 13.9 % (11.6-14.8) Platelet Count 151 K/UL (150-450) Mean Platelet Volume 8.3 FL (6.5-10.1) Neutrophils (%) (Auto) % (45.0-75.0) Lymphocytes (%) (Auto) % (20.0-45.0) Monocytes (%) (Auto) % (1.0-10.0) Eosinophils (%) (Auto) % (0.0-3.0) Basophils (%) (Auto) % (0.0-2.0) Differential Total Cells Counted 100 Neutrophils % (Manual) 50 % (45-75) Lymphocytes % (Manual) 44 % (20-45) Monocytes % (Manual) 4 % (1-10) Eosinophils % (Manual) 2 % (0-3) Basophils % (Manual) 0 % (0-2) Band Neutrophils 0 % (0-8) Platelet Estimate Adequate Platelet Morphology Normal Red Blood Cell Morphology Normal Prothrombin Time 17.6 SEC (9.30-11.50) H Prothromb Time International Ratio 1.7 (0.9-1.1) H Sodium Level Pending Potassium Level Pending Chloride Level Pending Carbon Dioxide Level Pending Blood Urea Nitrogen Pending Creatinine Pending Estimat Glomerular Filtration Rate Pending Glucose Level Pending Calcium Level Pending Total Bilirubin Pending Aspartate Amino Transf (AST/SGOT) Pending Alanine Aminotransferase (ALT/SGPT) Pending Alkaline Phosphatase Pending Total Protein Pending Albumin Pending Globulin Pending General: no apparent distress Head: normocephalic EENT: normal ENT inspection Respiratory: no respiratory distress Gastrointestinal: gt - active bleed ++ peg tube Genitourinary: normal inspection Neurologic: alert Skin: normal inspection, normal color Aassessment and Recs: # Coagulopathy with a history of being on coumadin --> INR is elevated, has been given VIt K --> recheck INR and monitor as needed, administer Vit K --> trend INR, hold off on coumadin --> NPO + IVFs --> PPI BID # Anemia of chronic disease hx of potential gtube site bleed though minimal --> does not require anemia panel # Limited mobility in bed # Feeding by G-tube --> replace as needed --> as per gi # Malfunction of gastrostomy tube Appreciate consultation greatly! Abdifatah Ramirez MD Jul 25, 2018 06:47
[2018-07-25 08:00] VITALS: BP 139/78
[2018-07-25] MEDS: Pantoprazole Inj IVP SCH ×2 (08:37→21:06)
[2018-07-25 12:00] VITALS: BP 128/74
--- NOTE | 2018-07-25 12:07 | GI Progress Note ---
Assessment/Plan Problems: (1) Malfunction of gastrostomy tube ICD Codes: K94.23 - Gastrostomy malfunction SNOMED: 819981960 (2) Feeding by G-tube ICD Codes: Z93.1 - Feeding by G-tube SNOMED: 333967225 (3) Anemia ICD Codes: D64.9 - Anemia SNOMED: 661950874 (4) Gastrojejunostomy tube dislodgement (5) Limited mobility in bed SNOMED: 5596096 Status: unchanged Status Narrative Discussed with Dr. Wilson. Assessment/Plan GT removed at bedside in ED due to excessive bleeding. Bleeding resolved, GT replaced at bedside. 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 I agree with the above findings, impression and plan. (Patient seen earlier today. Signature stamp does not reflect patient encounter time.). - César Wilson MD Subjective Subjective limited Objective Last 24 Hour Vital Signs Date Time Temp Pulse Resp B/P (MAP) Pulse Ox O2 Delivery O2 Flow Rate FiO2 07/25/18 09:00 Room Air 07/25/18 08:00 97.9 85 24 139/78 (98) 96 07/25/18 04:01 97.9 64 20 123/63 (83) 94 07/25/18 00:00 98.4 65 20 111/71 (84) 98 07/24/18 21:00 Room Air 07/24/18 20:00 98.2 76 20 121/69 (86) 96 07/24/18 19:54 Room Air 07/24/18 18:03 98.4 18 129/69 98 Room Air 07/24/18 16:59 98.4 18 129/69 98 Room Air 07/24/18 13:14 98.4 18 124/70 98 Room Air 07/24/18 12:53 98.4 68 18 129/89 98 Room Air Intake and Output 07/24/18 07/25/18 19:00 07:00 Intake Total 0 ml 660 ml Balance 0 ml 660 ml Intake Oral 0 ml IV Total 660 ml Other 0 ml # Voids 2 Laboratory Tests Test 07/24/18 13:44 07/24/18 14:15 07/24/18 14:35 07/24/18 16:15 Urine Color Yellow Urine Appearance Clear Urine pH 6 (4.5-8.0) Urine Specific [place] 1.020 (1.005-1.035) Urine Protein 2+ (NEGATIVE) H Urine Glucose (UA) Negative (NEGATIVE) Urine Ketones Negative (NEGATIVE) Urine Blood Negative (NEGATIVE) Urine Nitrite Negative (NEGATIVE) Urine Bilirubin Negative (NEGATIVE) Urine Urobilinogen 1 MG/DL (0.0-1.0) H Urine Leukocyte Esterase 1+ (NEGATIVE) H Urine RBC 0-2 /HPF (0 - 0) H Urine WBC 2-4 /HPF (0 - 0) Urine Squamous Epithelial Cells Occasional /LPF Urine Bacteria Few /HPF (NONE) White Blood Count 6.0 K/UL (4.8-10.8) Red Blood Count 4.20 M/UL (4.70-6.10) L Hemoglobin 13.0 G/DL (14.2-18.0) L Hematocrit 39.9 % (42.0-52.0) L Mean Corpuscular Volume 95 FL (80-99) Mean Corpuscular Hemoglobin 30.9 PG (27.0-31.0) Mean Corpuscular Hemoglobin Concent 32.6 G/DL (32.0-36.0) Red Cell Distribution Width 13.9 % (11.6-14.8) Platelet Count 151 K/UL (150-450) Mean Platelet Volume 8.3 FL (6.5-10.1) Neutrophils (%) (Auto) % (45.0-75.0) Lymphocytes (%) (Auto) % (20.0-45.0) Monocytes (%) (Auto) % (1.0-10.0) Eosinophils (%) (Auto) % (0.0-3.0) Basophils (%) (Auto) % (0.0-2.0) Differential Total Cells Counted 100 Neutrophils % (Manual) 50 % (45-75) Lymphocytes % (Manual) 44 % (20-45) Monocytes % (Manual) 4 % (1-10) Eosinophils % (Manual) 2 % (0-3) Basophils % (Manual) 0 % (0-2) Band Neutrophils 0 % (0-8) Platelet Estimate Adequate Platelet Morphology Normal Red Blood Cell Morphology Normal Prothrombin Time 17.6 SEC (9.30-11.50) H Prothromb Time International Ratio 1.7 (0.9-1.1) H Sodium Level 140 MMOL/L (136-145) Potassium Level 4.0 MMOL/L (3.5-5.1) Chloride Level 106 MMOL/L (98-107) Carbon Dioxide Level 26 MMOL/L (21-32) Anion Gap 8 mmol/L (5-15) Blood Urea Nitrogen 28 mg/dL (7-18) H Creatinine 0.8 MG/DL (0.55-1.30) Estimat Glomerular Filtration Rate mL/min (>60) Glucose Level 143 MG/DL (74-106) H Calcium Level 8.7 MG/DL (8.5-10.1) Total Bilirubin 0.4 MG/DL (0.2-1.0) Aspartate Amino Transf (AST/SGOT) 23 U/L (15-37) Alanine Aminotransferase (ALT/SGPT) 21 U/L (12-78) Alkaline Phosphatase 86 U/L (46-116) Total Protein 8.4 G/DL (6.4-8.2) H Albumin 2.5 G/DL (3.4-5.0) L Globulin 5.9 g/dL Albumin/Globulin Ratio 0.4 (1.0-2.7) L Test 07/25/18 04:50 White Blood Count 6.4 K/UL (4.8-10.8) Red Blood Count 3.98 M/UL (4.70-6.10) L Hemoglobin 12.4 G/DL (14.2-18.0) L Hematocrit 37.6 % (42.0-52.0) L Mean Corpuscular Volume 94 FL (80-99) Mean Corpuscular Hemoglobin 31.2 PG (27.0-31.0) H Mean Corpuscular Hemoglobin Concent 33.1 G/DL (32.0-36.0) Red Cell Distribution Width 13.9 % (11.6-14.8) Platelet Count 150 K/UL (150-450) Mean Platelet Volume 8.2 FL (6.5-10.1) Neutrophils (%) (Auto) 43.3 % (45.0-75.0) L Lymphocytes (%) (Auto) 46.0 % (20.0-45.0) H Monocytes (%) (Auto) 6.7 % (1.0-10.0) Eosinophils (%) (Auto) 2.7 % (0.0-3.0) Basophils (%) (Auto) 1.3 % (0.0-2.0) Prothrombin Time 18.1 SEC (9.30-11.50) H Prothromb Time International Ratio 1.8 (0.9-1.1) H Sodium Level 139 MMOL/L (136-145) Potassium Level 3.9 MMOL/L (3.5-5.1) Chloride Level 106 MMOL/L (98-107) Carbon Dioxide Level 28 MMOL/L (21-32) Anion Gap 5 mmol/L (5-15) Blood Urea Nitrogen 29 mg/dL (7-18) H Creatinine 0.9 MG/DL (0.55-1.30) Estimat Glomerular Filtration Rate mL/min (>60) Glucose Level 109 MG/DL (74-106) H Calcium Level 8.5 MG/DL (8.5-10.1) Total Bilirubin 0.7 MG/DL (0.2-1.0) Aspartate Amino Transf (AST/SGOT) 26 U/L (15-37) Alanine Aminotransferase (ALT/SGPT) 19 U/L (12-78) Alkaline Phosphatase 88 U/L (46-116) Total Protein 8.4 G/DL (6.4-8.2) H Albumin 2.5 G/DL (3.4-5.0) L Globulin 5.9 g/dL Albumin/Globulin Ratio 0.4 (1.0-2.7) L Height (Feet): 5 Height (Inches): 10.00 Weight (Pounds): 220 General Appearance: WD/WN, no apparent distress, alert Cardiovascular: normal rate Respiratory/Chest: normal breath sounds, no respiratory distress Abdominal Exam: normal bowel sounds, non tender, soft Extremities: normal range of motion, non-tender Jevon Ruiz MECHANICAL TECHN[employer] Jul 25, 2018 12:07
[2018-07-25] MEDS ORDERED: Phytonadione 5 MG in D5W 55 ML IVPB ONE (13:00)
[2018-07-25] MEDS ORDERED: D5NS 1,000 ML IV SCH (13:32)
--- NOTE | 2018-07-25 13:34 | Consultation ---
Consult Note Consult Note asked to eval for oliguria- Here for GT JT malfunction seen, examined data reviewed Past Medical History Deferred: No Family Available Hx Cardiac Problems: Yes Hx Hypertension: Yes Hx COPD: Yes Hx Diabetes: Yes Hx Gastrointestinal Problems: Yes - GT placed prior to arrival. Hx Neurological Problems: Yes Hx Cerebrovascular Accident: Yes Hx Dementia: Yes Hx Encephalitis: Yes Hx Seizures: Yes Hx Aphasia: Yes Hx Dysphasia: Yes Hx Weakness: Yes Assessment/Plan Urinary out let Obstruction: Tan inserted, 400 cc urine out GT JT Malfunction Mild Anemia Bed bound Coagulopathy Tan 50 cc hour IV Per GI, discussed with Dr Suman Duke,Mir BERNAL Jul 25, 2018 13:34
[2018-07-25] MEDS ORDERED: LORazepam 0.5mg tab ORAL PRN (13:45)
--- NOTE | 2018-07-25 15:54 | Diagnostic Imaging Report ---
Indication: Gastrostomy check Comparison: None Single view of the abdomen obtained Findings: Gastrostomy balloon appears to be in about the mid stomach body region. There is contrast in the stomach and duodenum. IMPRESSION: Gastrostomy position appears satisfactory. No leak
[2018-07-25 16:00] VITALS: BP 136/71
[2018-07-25 20:00] VITALS: BP 131/74
--- NOTE | 2018-07-25 21:32 | General Progress Note ---
Assessment/Plan Problem List: (1) Feeding by G-tube ICD Codes: Z93.1 - Feeding by G-tube SNOMED: 584074149 (2) Malfunction of gastrostomy tube ICD Codes: K94.23 - Gastrostomy malfunction SNOMED: 607252526 (3) Bilateral lower extremity edema Status: progressing Assessment/Plan leaking around peg repair of peg per dr delvalle elev inr since was on coumadin on hold afebrile edema Subjective ROS Limited/Unobtainable: Yes Allergies: Coded Allergies: MORPHINE (Unverified Allergy, Unknown, 03/31/18) Objective Last 24 Hour Vital Signs Date Time Temp Pulse Resp B/P (MAP) Pulse Ox O2 Delivery O2 Flow Rate FiO2 07/25/18 16:00 97.9 71 22 136/71 (92) 100 07/25/18 12:00 97.9 62 20 128/74 (92) 97 07/25/18 09:00 Room Air 07/25/18 08:00 97.9 85 24 139/78 (98) 96 07/25/18 04:01 97.9 64 20 123/63 (83) 94 07/25/18 00:00 98.4 65 20 111/71 (84) 98 Intake and Output 07/24/18 07/25/18 19:00 07:00 Intake Total 0 ml 660 ml Balance 0 ml 660 ml Intake Oral 0 ml IV Total 660 ml Other 0 ml # Voids 2 Laboratory Tests 07/25/18 04:50: White Blood Count 6.4, Red Blood Count 3.98L, Hemoglobin 12.4L, Hematocrit 37.6L , Mean Corpuscular Volume 94, Mean Corpuscular Hemoglobin 31.2H, Mean Corpuscular Hemoglobin Concent 33.1, Red Cell Distribution Width 13.9, Platelet Count 150, Mean Platelet Volume 8.2, Neutrophils (%) (Auto) 43.3L, Lymphocytes ( %) (Auto) 46.0H, Monocytes (%) (Auto) 6.7, Eosinophils (%) (Auto) 2.7, Basophils (%) (Auto) 1.3, Prothrombin Time 18.1H, Prothromb Time International Ratio 1.8H, Sodium Level 139, Potassium Level 3.9, Chloride Level 106, Carbon Dioxide Level 28, Anion Gap 5, Blood Urea Nitrogen 29H, Creatinine 0.9, Estimat Glomerular Filtration Rate , Glucose Level 109H, Calcium Level 8.5, Total Bilirubin 0.7, Aspartate Amino Transf (AST/SGOT) 26, Alanine Aminotransferase ( ALT/SGPT) 19, Alkaline Phosphatase 88, Total Protein 8.4H, Albumin 2.5L, Globulin 5.9, Albumin/Globulin Ratio 0.4L Height (Feet): 5 Height (Inches): 10.00 Weight (Pounds): 220 General Appearance: confused Respiratory/Chest: lungs clear Abdomen: soft Aliza Faria MD Jul 25, 2018 21:32
--- NOTE | 2018-07-25 22:02 | Consultation ---
DATE OF CONSULTATION: 07/25/2018 HISTORY OF PRESENT ILLNESS: This is a 78-year-old male with history of dementia, who has been admitted to the hospital for G-tube malfunction. The patient became agitated. Has waxing waning consciousness and unable to provide any history. He received a G-tube for severe malnutrition. The patient outside of the hospital has been on valproic acid. The patient presented with valproic acid presenting with anxiety. PAST PSYCHIATRIC HISTORY: Anxiety disorder and dementia. PAST MEDICAL HISTORY: Significant for failure to thrive, hyperlipidemia, gastroesophageal reflux disease, BPH, organic brain syndrome, and atrial fibrillation. ALLERGIES: Morphine. MENTAL STATUS EXAMINATION: The patient is nonverbal. There is psychomotor agitation. ASSESSMENT: AXIS I Encephalopathy due to metabolic disorder and is chronic and dementia. AXIS II Deferred. AXIS III As above. AXIS IV Low. AXIS V Global assessment of functioning is 10. PLAN: 1. The patient will be continued on Ativan p.r.n. and continue the Depakote. 2. Provide the patient with reality orientation. Sue Rodriguez M.D. DR: FABIÁN JOB#: [id number] CC:
[2018-07-26] VITALS: BP 141/82
[2018-07-26 04:00] VITALS: BP 137/86
[2018-07-26 05:50] LABS: BASOPHILS % (AUTO) 1.5 % (0.0-2.0); EOSINOPHILS % (AUTO) 3.5 % (0.0-3.0); HEMATOCRIT 36.6 % (42.0-52.0); HEMOGLOBIN 12.6 G/DL (14.2-18.0); LYMPHOCYTES % (AUTO) 42.6 % (20.0-45.0); MEAN CORPUSCULAR VOLUME 95 FL (80-99); MONOCYTES % (AUTO) 8.8 % (1.0-10.0); NEUTROPHILS % (AUTO) 43.7 % (45.0-75.0); PLATELET COUNT 147 K/UL (150-450); RED BLOOD COUNT 3.87 M/UL (4.70-6.10); RED CELL DISTRIBUTION WIDTH 14.1 % (11.6-14.8); WHITE BLOOD COUNT 4.7 K/UL (4.8-10.8)
[2018-07-26 06:09] LABS: INR 1.6 (0.9-1.1)
[2018-07-26 06:22] LABS: ALANINE AMINOTRANSFERASE 22 U/L (12-78); ALBUMIN 2.4 G/DL (3.4-5.0); ALBUMIN/GLOBULIN RATIO 0.4 (1.0-2.7); ALKALINE PHOSPHATASE 86 U/L (46-116); ANION GAP 6 mmol/L (5-15); ASPARTATE AMINO TRANSFERASE 26 U/L (15-37); BILIRUBIN,TOTAL 0.9 MG/DL (0.2-1.0); BLOOD UREA NITROGEN 24 mg/dL (7-18); CALCIUM 8.3 MG/DL (8.5-10.1); CARBON DIOXIDE 27 MMOL/L (21-32); CHLORIDE 107 MMOL/L (98-107); CREATININE 0.9 MG/DL (0.55-1.30); FERRITIN 76 NG/ML (8-388); POTASSIUM 3.9 MMOL/L (3.5-5.1); SODIUM 140 MMOL/L (136-145)
[2018-07-26 06:53] LABS: % IRON SATURATION 39 % (15-50); IRON 86 ug/dL (50-175); TOTAL IRON BINDING CAPACITY 221 ug/dL (250-450)
[2018-07-26 08:00] VITALS: BP 115/61
[2018-07-26] MEDS: Pantoprazole Inj IVP SCH (09:00)
--- NOTE | 2018-07-26 09:28 | Nephrology Progress Note ---
Assessment/Plan Problem List: (1) Malfunction of gastrostomy tube (2) Coagulopathy (3) Functional quadriplegia (4) Urinary obstruction Assessment Urinary out let Obstruction: Lucero inserted, 400 cc urine out GT JT Malfunction Mild Anemia Bed bound Coagulopathy Plan keep lucero in Dc IV as GT feeding on DC planning Subjective ROS Limited/Unobtainable: No Objective Objective Last 24 Hour Vital Signs Date Time Temp Pulse Resp B/P (MAP) Pulse Ox O2 Delivery O2 Flow Rate FiO2 07/26/18 08:00 98.0 62 18 115/61 (79) 98 07/26/18 04:00 98.3 73 20 137/86 (103) 95 07/26/18 00:00 98.8 69 20 141/82 (101) 100 07/25/18 21:00 Room Air 07/25/18 20:00 98.1 69 20 131/74 (93) 94 07/25/18 16:00 97.9 71 22 136/71 (92) 100 07/25/18 12:00 97.9 62 20 128/74 (92) 97 Intake and Output 07/25/18 07/26/18 19:00 07:00 Intake Total 130 ml 1070 ml Output Total 35 ml 300 ml Balance 95 ml 770 ml Free Water 60 ml 120 ml IV Total 50 ml 600 ml Tube Feeding 20 ml 350 ml Output Urine Total 35 ml 300 ml # Bowel Movements 1 1 Laboratory Tests 07/26/18 05:10: White Blood Count 4.7L, Red Blood Count 3.87L, Hemoglobin 12.6L, Hematocrit 36.6L, Mean Corpuscular Volume 95, Mean Corpuscular Hemoglobin 32.4H, Mean Corpuscular Hemoglobin Concent 34.3, Red Cell Distribution Width 14.1, Platelet Count 147L, Mean Platelet Volume 8.5, Neutrophils (%) (Auto) 43.7L, Lymphocytes (%) (Auto) 42.6, Monocytes (%) (Auto) 8.8, Eosinophils (%) (Auto) 3.5H, Basophils (%) (Auto) 1.5, Prothrombin Time 16.5H, Prothromb Time International Ratio 1.6H, Activated Partial Thromboplast Time 32, Sodium Level 140, Potassium Level 3.9, Chloride Level 107, Carbon Dioxide Level 27, Anion Gap 6, Blood Urea Nitrogen 24H, Creatinine 0.9, Estimat Glomerular Filtration Rate , Glucose Level 114H, Hemoglobin A1c 6.9H, Uric Acid 4.8, Calcium Level 8.3L, Phosphorus Level 2.0L, Magnesium Level 2.0, Iron Level 86, Total Iron Binding Capacity 221L , Percent Iron Saturation 39, Unsaturated Iron Binding 135, Ferritin 76, Total Bilirubin 0.9, Aspartate Amino Transf (AST/SGOT) 26, Alanine Aminotransferase ( ALT/SGPT) 22, Alkaline Phosphatase 86, Total Protein 7.8, Albumin 2.4L, Globulin 5.4, Albumin/Globulin Ratio 0.4L, Vitamin B12 Level > 2000H, Folate 41.0, Thyroid Stimulating Hormone (TSH) 2.981 Height (Feet): 5 Height (Inches): 10.00 Weight (Pounds): 220 General Appearance: no apparent distress Cardiovascular: normal rate Respiratory/Chest: chest wall non-tender Abdomen: soft, other - GT in and functional Mir Duke MD Jul 26, 2018 09:28
[2018-07-26] MEDS ORDERED: Potassium Phosphate 20 MM in NS 275 ML IV ONE (09:45)
--- NOTE | 2018-07-26 10:00 | General Progress Note ---
Assessment/Plan Problem List: (1) Feeding problem (2) Dementia ICD Codes: F03.90 - Unspecified dementia without behavioral disturbance SNOMED: 79848989 (3) Seizure disorder ICD Codes: G40.909 - Seizure disorder SNOMED: 003430847 (4) Osteomyelitis ICD Codes: M86.9 - Osteomyelitis SNOMED: 32698436 (5) Anemia ICD Codes: D64.9 - Anemia SNOMED: 501920569 (6) Gastrojejunostomy tube dislodgement (7) Malfunction of gastrostomy tube ICD Codes: K94.23 - Gastrostomy malfunction SNOMED: 140653397 Assessment/Plan GT removed at bedside in ED due to excessive bleeding. Bleeding resolved, GT replaced at bedside. 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, prn transfusions ppi BID fu labs dc planning Subjective ROS Limited/Unobtainable: No Allergies: Coded Allergies: MORPHINE (Unverified Allergy, Unknown, 03/31/18) Objective Last 24 Hour Vital Signs Date Time Temp Pulse Resp B/P (MAP) Pulse Ox O2 Delivery O2 Flow Rate FiO2 07/26/18 08:00 98.0 62 18 115/61 (79) 98 07/26/18 04:00 98.3 73 20 137/86 (103) 95 07/26/18 00:00 98.8 69 20 141/82 (101) 100 07/25/18 21:00 Room Air 07/25/18 20:00 98.1 69 20 131/74 (93) 94 07/25/18 16:00 97.9 71 22 136/71 (92) 100 07/25/18 12:00 97.9 62 20 128/74 (92) 97 Intake and Output 07/25/18 07/26/18 19:00 07:00 Intake Total 130 ml 1070 ml Output Total 35 ml 300 ml Balance 95 ml 770 ml Free Water 60 ml 120 ml IV Total 50 ml 600 ml Tube Feeding 20 ml 350 ml Output Urine Total 35 ml 300 ml # Bowel Movements 1 1 Laboratory Tests 07/26/18 05:10: White Blood Count 4.7L, Red Blood Count 3.87L, Hemoglobin 12.6L, Hematocrit 36.6L, Mean Corpuscular Volume 95, Mean Corpuscular Hemoglobin 32.4H, Mean Corpuscular Hemoglobin Concent 34.3, Red Cell Distribution Width 14.1, Platelet Count 147L, Mean Platelet Volume 8.5, Neutrophils (%) (Auto) 43.7L, Lymphocytes (%) (Auto) 42.6, Monocytes (%) (Auto) 8.8, Eosinophils (%) (Auto) 3.5H, Basophils (%) (Auto) 1.5, Prothrombin Time 16.5H, Prothromb Time International Ratio 1.6H, Activated Partial Thromboplast Time 32, Sodium Level 140, Potassium Level 3.9, Chloride Level 107, Carbon Dioxide Level 27, Anion Gap 6, Blood Urea Nitrogen 24H, Creatinine 0.9, Estimat Glomerular Filtration Rate , Glucose Level 114H, Hemoglobin A1c 6.9H, Uric Acid 4.8, Calcium Level 8.3L, Phosphorus Level 2.0L, Magnesium Level 2.0, Iron Level 86, Total Iron Binding Capacity 221L , Percent Iron Saturation 39, Unsaturated Iron Binding 135, Ferritin 76, Total Bilirubin 0.9, Aspartate Amino Transf (AST/SGOT) 26, Alanine Aminotransferase ( ALT/SGPT) 22, Alkaline Phosphatase 86, Total Protein 7.8, Albumin 2.4L, Globulin 5.4, Albumin/Globulin Ratio 0.4L, Vitamin B12 Level > 2000H, Folate 41.0, Thyroid Stimulating Hormone (TSH) 2.981 Height (Feet): 5 Height (Inches): 10.00 Weight (Pounds): 220 Neck: supple Respiratory/Chest: decreased breath sounds Abdomen: normal bowel sounds, non tender, soft Extremities: non-tender César Wilson MD Jul 26, 2018 09:59
[2018-07-26] MEDS ORDERED: Tubing IV Secondary IV ONE (10:10)
[2018-07-26] MEDS ORDERED: 1/2 NS 1000ml IV ONE (10:10)
[2018-07-26 12:00] VITALS: BP 134/62
[2018-07-26 15:56] VITALS: BP 130/71
[2018-07-26 20:00] VITALS: BP 144/88
--- NOTE | 2018-07-26 21:13 | General Progress Note ---
Assessment/Plan Problem List: (1) Feeding by G-tube ICD Codes: Z93.1 - Feeding by G-tube SNOMED: 509383294 (2) Malfunction of gastrostomy tube ICD Codes: K94.23 - Gastrostomy malfunction SNOMED: 024178854 (3) Bilateral lower extremity edema Status: progressing Assessment/Plan leaking around peg repair of peg per dr delvalle elev inr since was on coumadin inr improved check h/h afebrile moniter for bleeding Subjective ROS Limited/Unobtainable: Yes Allergies: Coded Allergies: MORPHINE (Unverified Allergy, Unknown, 03/31/18) Objective Last 24 Hour Vital Signs Date Time Temp Pulse Resp B/P (MAP) Pulse Ox O2 Delivery O2 Flow Rate FiO2 07/26/18 21:06 Room Air 07/26/18 15:56 98.1 78 19 130/71 (90) 98 07/26/18 12:00 98.1 72 20 134/62 (86) 99 07/26/18 09:00 Room Air 07/26/18 08:00 98.0 62 18 115/61 (79) 98 07/26/18 04:00 98.3 73 20 137/86 (103) 95 07/26/18 00:00 98.8 69 20 141/82 (101) 100 Intake and Output 07/25/18 07/26/18 19:00 07:00 Intake Total 130 ml 1070 ml Output Total 35 ml 300 ml Balance 95 ml 770 ml Free Water 60 ml 120 ml IV Total 50 ml 600 ml Tube Feeding 20 ml 350 ml Output Urine Total 35 ml 300 ml # Bowel Movements 1 1 Laboratory Tests 07/26/18 05:10: White Blood Count 4.7L, Red Blood Count 3.87L, Hemoglobin 12.6L, Hematocrit 36.6L, Mean Corpuscular Volume 95, Mean Corpuscular Hemoglobin 32.4H, Mean Corpuscular Hemoglobin Concent 34.3, Red Cell Distribution Width 14.1, Platelet Count 147L, Mean Platelet Volume 8.5, Neutrophils (%) (Auto) 43.7L, Lymphocytes (%) (Auto) 42.6, Monocytes (%) (Auto) 8.8, Eosinophils (%) (Auto) 3.5H, Basophils (%) (Auto) 1.5, Prothrombin Time 16.5H, Prothromb Time International Ratio 1.6H, Activated Partial Thromboplast Time 32, Sodium Level 140, Potassium Level 3.9, Chloride Level 107, Carbon Dioxide Level 27, Anion Gap 6, Blood Urea Nitrogen 24H, Creatinine 0.9, Estimat Glomerular Filtration Rate , Glucose Level 114H, Hemoglobin A1c 6.9H, Uric Acid 4.8, Calcium Level 8.3L, Phosphorus Level 2.0L, Magnesium Level 2.0, Iron Level 86, Total Iron Binding Capacity 221L , Percent Iron Saturation 39, Unsaturated Iron Binding 135, Ferritin 76, Total Bilirubin 0.9, Aspartate Amino Transf (AST/SGOT) 26, Alanine Aminotransferase ( ALT/SGPT) 22, Alkaline Phosphatase 86, Total Protein 7.8, Albumin 2.4L, Globulin 5.4, Albumin/Globulin Ratio 0.4L, Vitamin B12 Level > 2000H, Folate 41.0, Thyroid Stimulating Hormone (TSH) 2.981 Height (Feet): 5 Height (Inches): 10.00 Weight (Pounds): 220 Cardiovascular: regular rhythm Respiratory/Chest: lungs clear Abdomen: soft Aliza Faria MD Jul 26, 2018 21:13
--- NOTE | 2018-07-26 21:40 | General Progress Note ---
Assessment/Plan Status: stable Assessment/Plan # Coagulopathy with a history of being on coumadin --> INR is elevated, has been given VIt K --> recheck INR and monitor as needed, administer Vit K --> trend INR, hold off on coumadin --> NPO + IVFs --> PPI BID # Anemia of chronic disease hx of potential gtube site bleed though minimal --> does not require anemia panel # Limited mobility in bed # Feeding by G-tube --> replace as needed --> as per gi # Malfunction of gastrostomy tube Subjective Date patient seen: Jul 26, 2018 Hematologic/Lymphatic: Reports: anemia Allergies: Coded Allergies: MORPHINE (Unverified Allergy, Unknown, 03/31/18) All Systems: reviewed and negative except above Subjective Pt awake and nonverbal. No acute events. Objective Last 24 Hour Vital Signs Date Time Temp Pulse Resp B/P (MAP) Pulse Ox O2 Delivery O2 Flow Rate FiO2 07/26/18 21:06 Room Air 07/26/18 15:56 98.1 78 19 130/71 (90) 98 07/26/18 12:00 98.1 72 20 134/62 (86) 99 07/26/18 09:00 Room Air 07/26/18 08:00 98.0 62 18 115/61 (79) 98 07/26/18 04:00 98.3 73 20 137/86 (103) 95 07/26/18 00:00 98.8 69 20 141/82 (101) 100 Intake and Output 07/25/18 07/26/18 19:00 07:00 Intake Total 130 ml 1070 ml Output Total 35 ml 300 ml Balance 95 ml 770 ml Free Water 60 ml 120 ml IV Total 50 ml 600 ml Tube Feeding 20 ml 350 ml Output Urine Total 35 ml 300 ml # Bowel Movements 1 1 Laboratory Tests 07/26/18 05:10: White Blood Count 4.7L, Red Blood Count 3.87L, Hemoglobin 12.6L, Hematocrit 36.6L, Mean Corpuscular Volume 95, Mean Corpuscular Hemoglobin 32.4H, Mean Corpuscular Hemoglobin Concent 34.3, Red Cell Distribution Width 14.1, Platelet Count 147L, Mean Platelet Volume 8.5, Neutrophils (%) (Auto) 43.7L, Lymphocytes (%) (Auto) 42.6, Monocytes (%) (Auto) 8.8, Eosinophils (%) (Auto) 3.5H, Basophils (%) (Auto) 1.5, Prothrombin Time 16.5H, Prothromb Time International Ratio 1.6H, Activated Partial Thromboplast Time 32, Sodium Level 140, Potassium Level 3.9, Chloride Level 107, Carbon Dioxide Level 27, Anion Gap 6, Blood Urea Nitrogen 24H, Creatinine 0.9, Estimat Glomerular Filtration Rate , Glucose Level 114H, Hemoglobin A1c 6.9H, Uric Acid 4.8, Calcium Level 8.3L, Phosphorus Level 2.0L, Magnesium Level 2.0, Iron Level 86, Total Iron Binding Capacity 221L , Percent Iron Saturation 39, Unsaturated Iron Binding 135, Ferritin 76, Total Bilirubin 0.9, Aspartate Amino Transf (AST/SGOT) 26, Alanine Aminotransferase ( ALT/SGPT) 22, Alkaline Phosphatase 86, Total Protein 7.8, Albumin 2.4L, Globulin 5.4, Albumin/Globulin Ratio 0.4L, Vitamin B12 Level > 2000H, Folate 41.0, Thyroid Stimulating Hormone (TSH) 2.981 Height (Feet): 5 Height (Inches): 10.00 Weight (Pounds): 220 General Appearance: no apparent distress Objective General: no apparent distress Head: normocephalic EENT: normal ENT inspection Respiratory: no respiratory distress Gastrointestinal: gt - active bleed ++ peg tube Genitourinary: normal inspection Neurologic: alert Skin: normal inspection, normal color Abdifatah Ramirez MD Jul 26, 2018 21:40
[2018-07-27 00:26] VITALS: BP 150/85
[2018-07-27 04:00] VITALS: BP 140/84
[2018-07-27 08:00] VITALS: BP 132/72
--- NOTE | 2018-07-27 09:06 | General Progress Note ---
Assessment/Plan Problem List: (1) Feeding problem (2) Dementia ICD Codes: F03.90 - Unspecified dementia without behavioral disturbance SNOMED: 84779854 (3) Seizure disorder ICD Codes: G40.909 - Seizure disorder SNOMED: 831471462 (4) Osteomyelitis ICD Codes: M86.9 - Osteomyelitis SNOMED: 48810980 (5) Anemia ICD Codes: D64.9 - Anemia SNOMED: 351623714 (6) Gastrojejunostomy tube dislodgement (7) Malfunction of gastrostomy tube ICD Codes: K94.23 - Gastrostomy malfunction SNOMED: 463602201 Assessment/Plan GT removed at bedside in ED due to excessive bleeding. Bleeding resolved, GT replaced at bedside. 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&H, prn transfusions ppi BID fu labs dc planning Subjective ROS Limited/Unobtainable: No Allergies: Coded Allergies: MORPHINE (Unverified Allergy, Unknown, 03/31/18) Objective Last 24 Hour Vital Signs Date Time Temp Pulse Resp B/P (MAP) Pulse Ox O2 Delivery O2 Flow Rate FiO2 07/27/18 08:00 97.7 63 18 132/72 (92) 99 07/27/18 04:00 98.3 69 18 140/84 (102) 97 07/27/18 00:26 99.9 67 20 150/85 (106) 97 07/26/18 21:06 Room Air 07/26/18 20:00 98.3 82 20 144/88 (106) 98 07/26/18 15:56 98.1 78 19 130/71 (90) 98 07/26/18 12:00 98.1 72 20 134/62 (86) 99 Intake and Output 07/26/18 07/27/18 18:59 06:59 Intake Total 790 ml 660 ml Output Total 1400 ml Balance 790 ml -740 ml Free Water 150 ml 60 ml IV Total 50 ml Tube Feeding 590 ml 600 ml Output Urine Total 1400 ml # Bowel Movements 2 Height (Feet): 5 Height (Inches): 10.00 Weight (Pounds): 220 General Appearance: no apparent distress EENT: normal ENT inspection Neck: supple Cardiovascular: normal rate Respiratory/Chest: decreased breath sounds Abdomen: normal bowel sounds, non tender, soft Extremities: non-tender César Wilson MD Jul 27, 2018 09:06
--- NOTE | 2018-07-27 15:03 | Nephrology Progress Note ---
Assessment/Plan Problem List: (1) Malfunction of gastrostomy tube (2) Coagulopathy (3) Functional quadriplegia (4) Urinary obstruction Assessment Urinary out let Obstruction: Lucero inserted, 400 cc urine out GT JT Malfunction Mild Anemia Bed bound Coagulopathy Plan no labs today- keep lucero in Dc IV as GT feeding on DC planning ? Subjective ROS Limited/Unobtainable: No Objective Objective Last 24 Hour Vital Signs Date Time Temp Pulse Resp B/P (MAP) Pulse Ox O2 Delivery O2 Flow Rate FiO2 07/27/18 09:00 Room Air 07/27/18 08:00 97.7 63 18 132/72 (92) 99 07/27/18 04:00 98.3 69 18 140/84 (102) 97 07/27/18 00:26 99.9 67 20 150/85 (106) 97 07/26/18 21:06 Room Air 07/26/18 20:00 98.3 82 20 144/88 (106) 98 07/26/18 15:56 98.1 78 19 130/71 (90) 98 Intake and Output 07/26/18 07/27/18 19:00 07:00 Intake Total 750 ml 720 ml Output Total 1400 ml Balance 750 ml -680 ml Free Water 150 ml 120 ml Tube Feeding 600 ml 600 ml Output Urine Total 1400 ml # Bowel Movements 2 Height (Feet): 5 Height (Inches): 10.00 Weight (Pounds): 220 General Appearance: no apparent distress Cardiovascular: normal rate Abdomen: soft Mir Duke MD Jul 27, 2018 15:03
--- NOTE | 2018-07-27 15:23 | General Progress Note ---
Assessment/Plan Status: stable Assessment/Plan # Coagulopathy with a history of being on coumadin --> INR is elevated, has been given VIt K --> recheck INR and monitor as needed, administer Vit K --> trend INR, hold off on coumadin --> NPO + IVFs --> PPI BID # Anemia of chronic disease hx of potential gtube site bleed though minimal --> does not require anemia panel # Limited mobility in bed # Feeding by G-tube --> replace as needed --> as per gi # Malfunction of gastrostomy tube Subjective Date patient seen: Jul 27, 2018 Hematologic/Lymphatic: Reports: anemia Allergies: Coded Allergies: MORPHINE (Unverified Allergy, Unknown, 03/31/18) All Systems: reviewed and negative except above Subjective Pt awake and nonverbal. No acute events. DC planning. Objective Last 24 Hour Vital Signs Date Time Temp Pulse Resp B/P (MAP) Pulse Ox O2 Delivery O2 Flow Rate FiO2 07/27/18 09:00 Room Air 07/27/18 08:00 97.7 63 18 132/72 (92) 99 07/27/18 04:00 98.3 69 18 140/84 (102) 97 07/27/18 00:26 99.9 67 20 150/85 (106) 97 07/26/18 21:06 Room Air 07/26/18 20:00 98.3 82 20 144/88 (106) 98 07/26/18 15:56 98.1 78 19 130/71 (90) 98 Intake and Output 07/26/18 07/27/18 19:00 07:00 Intake Total 750 ml 720 ml Output Total 1400 ml Balance 750 ml -680 ml Free Water 150 ml 120 ml Tube Feeding 600 ml 600 ml Output Urine Total 1400 ml # Bowel Movements 2 Height (Feet): 5 Height (Inches): 10.00 Weight (Pounds): 220 General Appearance: no apparent distress Objective General: no apparent distress Head: normocephalic EENT: normal ENT inspection Respiratory: no respiratory distress Gastrointestinal: gt - active bleed ++ peg tube Genitourinary: normal inspection Neurologic: alert Skin: normal inspection, normal color Abdifatah Ramirez MD Jul 27, 2018 15:23
[2018-07-27 16:10] VITALS: BP 128/76
[2018-07-27 19:46] VITALS: BP 157/68
--- NOTE | 2018-07-27 20:35 | General Progress Note ---
Assessment/Plan Problem List: (1) Feeding by G-tube ICD Codes: Z93.1 - Feeding by G-tube SNOMED: 051109333 (2) Malfunction of gastrostomy tube ICD Codes: K94.23 - Gastrostomy malfunction SNOMED: 697351680 (3) Bilateral lower extremity edema Status: progressing Assessment/Plan repair of peg dc in am afebrile moniter for bleeding Subjective ROS Limited/Unobtainable: Yes Allergies: Coded Allergies: MORPHINE (Unverified Allergy, Unknown, 03/31/18) Objective Last 24 Hour Vital Signs Date Time Temp Pulse Resp B/P (MAP) Pulse Ox O2 Delivery O2 Flow Rate FiO2 07/27/18 20:11 Room Air 07/27/18 19:46 98.0 61 20 157/68 (97) 97 07/27/18 16:10 98.1 67 18 128/76 (93) 07/27/18 09:00 Room Air 07/27/18 08:00 97.7 63 18 132/72 (92) 99 07/27/18 04:00 98.3 69 18 140/84 (102) 97 07/27/18 00:26 99.9 67 20 150/85 (106) 97 07/26/18 21:06 Room Air Intake and Output 07/26/18 07/27/18 19:00 07:00 Intake Total 750 ml 720 ml Output Total 1400 ml Balance 750 ml -680 ml Free Water 150 ml 120 ml Tube Feeding 600 ml 600 ml Output Urine Total 1400 ml # Bowel Movements 2 Height (Feet): 5 Height (Inches): 10.00 Weight (Pounds): 220 General Appearance: confused Respiratory/Chest: lungs clear Abdomen: soft Aliza Faria MD Jul 27, 2018 20:34
[2018-07-28] VITALS: BP 126/85
[2018-07-28 04:00] VITALS: BP 128/66
[2018-07-28 05:49] LABS: BASOPHILS % (AUTO) 1.1 % (0.0-2.0); EOSINOPHILS % (AUTO) 3.7 % (0.0-3.0); HEMATOCRIT 36.4 % (42.0-52.0); HEMOGLOBIN 12.1 G/DL (14.2-18.0); LYMPHOCYTES % (AUTO) 45.8 % (20.0-45.0); MEAN CORPUSCULAR VOLUME 94 FL (80-99); MONOCYTES % (AUTO) 8.1 % (1.0-10.0); NEUTROPHILS % (AUTO) 41.4 % (45.0-75.0); PLATELET COUNT 140 K/UL (150-450); RED BLOOD COUNT 3.87 M/UL (4.70-6.10); RED CELL DISTRIBUTION WIDTH 13.7 % (11.6-14.8); WHITE BLOOD COUNT 6.2 K/UL (4.8-10.8)
[2018-07-28 06:30] LABS: ALANINE AMINOTRANSFERASE 22 U/L (12-78); ALBUMIN 2.3 G/DL (3.4-5.0); ALBUMIN/GLOBULIN RATIO 0.5 (1.0-2.7); ALKALINE PHOSPHATASE 88 U/L (46-116); ANION GAP 6 mmol/L (5-15); ASPARTATE AMINO TRANSFERASE 26 U/L (15-37); BILIRUBIN,TOTAL 0.6 MG/DL (0.2-1.0); BLOOD UREA NITROGEN 20 mg/dL (7-18); CARBON DIOXIDE 26 MMOL/L (21-32); CHLORIDE 109 MMOL/L (98-107); CREATININE 0.8 MG/DL (0.55-1.30); PHOSPHORUS 1.9 MG/DL (2.5-4.9); POTASSIUM 4.2 MMOL/L (3.5-5.1); SODIUM 141 MMOL/L (136-145)
--- NOTE | 2018-07-28 06:41 | General Progress Note ---
Assessment/Plan Assessment/Plan # Coagulopathy with a history of being on coumadin --> INR is elevated, has been given VIt K --> recheck INR and monitor as needed, administer Vit K --> trend INR, continue to hold off on coumadin --> NPO + IVFs --> PPI BID # Anemia of chronic disease hx of potential gtube site bleed though minimal --> does not require anemia panel # Limited mobility in bed --> as per pcp # Feeding by G-tube --> replace as needed --> as per gi # Malfunction of gastrostomy tube --> replaced 07/27 Subjective ROS Limited/Unobtainable: Yes Allergies: Coded Allergies: MORPHINE (Unverified Allergy, Unknown, 03/31/18) Subjective Pt awake and nonverbal. No acute events. DC planning. peg repaired yesterday. Objective Last 24 Hour Vital Signs Date Time Temp Pulse Resp B/P (MAP) Pulse Ox O2 Delivery O2 Flow Rate FiO2 07/28/18 04:00 98.0 69 20 128/66 (86) 98 07/28/18 00:00 98.7 64 20 126/85 (99) 96 07/27/18 20:11 Room Air 07/27/18 19:46 98.0 61 20 157/68 (97) 97 07/27/18 16:10 98.1 67 18 128/76 (93) 07/27/18 09:00 Room Air 07/27/18 08:00 97.7 63 18 132/72 (92) 99 Intake and Output 07/27/18 07/28/18 19:00 07:00 Intake Total 720 ml 670 ml Output Total 600 ml Balance 120 ml 670 ml Free Water 120 ml 120 ml Tube Feeding 600 ml 550 ml Output Urine Total 600 ml Laboratory Tests 07/28/18 04:50: White Blood Count 6.2, Red Blood Count 3.87L, Hemoglobin 12.1L, Hematocrit 36.4L , Mean Corpuscular Volume 94, Mean Corpuscular Hemoglobin 31.2H, Mean Corpuscular Hemoglobin Concent 33.2, Red Cell Distribution Width 13.7, Platelet Count 140L, Mean Platelet Volume 8.3, Neutrophils (%) (Auto) 41.4L, Lymphocytes (%) (Auto) 45.8H, Monocytes (%) (Auto) 8.1, Eosinophils (%) (Auto) 3.7H, Basophils (%) (Auto) 1.1, Sodium Level 141, Potassium Level 4.2, Chloride Level 109H, Carbon Dioxide Level 26, Anion Gap 6, Blood Urea Nitrogen 20H, Creatinine 0.8, Estimat Glomerular Filtration Rate , Glucose Level 133H, Calcium Level 8.0L , Phosphorus Level 1.9L, Magnesium Level 2.0, Total Bilirubin 0.6, Aspartate Amino Transf (AST/SGOT) 26, Alanine Aminotransferase (ALT/SGPT) 22, Alkaline Phosphatase 88, Total Protein 7.3, Albumin 2.3L, Globulin 5.0, Albumin/Globulin Ratio 0.5L Height (Feet): 5 Height (Inches): 10.00 Weight (Pounds): 220 Objective General: no apparent distress Head: normocephalic EENT: normal ENT inspection Respiratory: no respiratory distress Gastrointestinal: gt - active bleed ++ peg tube Genitourinary: normal inspection Neurologic: alert Skin: normal inspection, normal color Abdifatah Ramirez MD Jul 28, 2018 06:41
[2018-07-28] MEDS ORDERED: cefOXitin Sod 1 GM in D5W 55 ML IV SCH (08:00)
--- NOTE | 2018-07-28 10:12 | Nephrology Progress Note ---
Assessment/Plan Problem List: (1) Malfunction of gastrostomy tube (2) Coagulopathy (3) Functional quadriplegia (4) Urinary obstruction Assessment Urinary out let Obstruction: Lucero inserted, 400 cc urine out GT JT Malfunction Mild Anemia Bed bound Coagulopathy Plan Phos supplement keep lucero in Dc IV since GT feeding on DC planning ? Subjective ROS Limited/Unobtainable: No Objective Objective Last 24 Hour Vital Signs Date Time Temp Pulse Resp B/P (MAP) Pulse Ox O2 Delivery O2 Flow Rate FiO2 07/28/18 04:00 98.0 69 20 128/66 (86) 98 07/28/18 00:00 98.7 64 20 126/85 (99) 96 07/27/18 20:11 Room Air 07/27/18 19:46 98.0 61 20 157/68 (97) 97 07/27/18 16:10 98.1 67 18 128/76 (93) Intake and Output 07/27/18 07/28/18 18:59 06:59 Intake Total 780 ml 720 ml Output Total 600 ml 550 ml Balance 180 ml 170 ml Free Water 180 ml 120 ml Tube Feeding 600 ml 600 ml Output Urine Total 600 ml 550 ml # Bowel Movements 1 Laboratory Tests 07/28/18 04:50: White Blood Count 6.2, Red Blood Count 3.87L, Hemoglobin 12.1L, Hematocrit 36.4L , Mean Corpuscular Volume 94, Mean Corpuscular Hemoglobin 31.2H, Mean Corpuscular Hemoglobin Concent 33.2, Red Cell Distribution Width 13.7, Platelet Count 140L, Mean Platelet Volume 8.3, Neutrophils (%) (Auto) 41.4L, Lymphocytes (%) (Auto) 45.8H, Monocytes (%) (Auto) 8.1, Eosinophils (%) (Auto) 3.7H, Basophils (%) (Auto) 1.1, Sodium Level 141, Potassium Level 4.2, Chloride Level 109H, Carbon Dioxide Level 26, Anion Gap 6, Blood Urea Nitrogen 20H, Creatinine 0.8, Estimat Glomerular Filtration Rate , Glucose Level 133H, Calcium Level 8.0L , Phosphorus Level 1.9L, Magnesium Level 2.0, Total Bilirubin 0.6, Aspartate Amino Transf (AST/SGOT) 26, Alanine Aminotransferase (ALT/SGPT) 22, Alkaline Phosphatase 88, Total Protein 7.3, Albumin 2.3L, Globulin 5.0, Albumin/Globulin Ratio 0.5L Height (Feet): 5 Height (Inches): 10.00 Weight (Pounds): 220 General Appearance: no apparent distress Cardiovascular: normal rate Respiratory/Chest: decreased breath sounds Abdomen: soft Objective no change Mir Duke MD Jul 28, 2018 10:12
[2018-07-28] MEDS ORDERED: Phospha 250 Neutral tab GT SCH ×2 (10:30→13:00)
--- NOTE | 2018-07-28 10:59 | GI Progress Note ---
Assessment/Plan Problems: (1) Malfunction of gastrostomy tube ICD Codes: K94.23 - Gastrostomy malfunction SNOMED: 373303489 (2) Feeding by G-tube ICD Codes: Z93.1 - Feeding by G-tube SNOMED: 590073823 (3) Anemia ICD Codes: D64.9 - Anemia SNOMED: 951379596 (4) Gastrojejunostomy tube dislodgement (5) Limited mobility in bed SNOMED: [id number] Status: stable Status Narrative Discussed with Dr. Wilson. Assessment/Plan GT removed at bedside in ED due to excessive bleeding. Bleeding resolved, GT replaced at bedside. GTF tolerated dressing changes BID/prn to old GT composite engineer H&H, prn transfusions ppi BID fu labs dc planning The patient was seen and examined at bedside and all new and available data was reviewed in the patients chart. I agree with the above findings, impression and plan. (Patient seen earlier today. Signature stamp does not reflect patient encounter time.). - César Wilson MD Subjective Subjective limited Objective Last 24 Hour Vital Signs Date Time Temp Pulse Resp B/P (MAP) Pulse Ox O2 Delivery O2 Flow Rate FiO2 07/28/18 04:00 98.0 69 20 128/66 (86) 98 07/28/18 00:00 98.7 64 20 126/85 (99) 96 07/27/18 20:11 Room Air 07/27/18 19:46 98.0 61 20 157/68 (97) 97 07/27/18 16:10 98.1 67 18 128/76 (93) Intake and Output 07/27/18 07/28/18 18:59 06:59 Intake Total 780 ml 720 ml Output Total 600 ml 550 ml Balance 180 ml 170 ml Free Water 180 ml 120 ml Tube Feeding 600 ml 600 ml Output Urine Total 600 ml 550 ml # Bowel Movements 1 Laboratory Tests Test 07/28/18 04:50 White Blood Count 6.2 K/UL (4.8-10.8) Red Blood Count 3.87 M/UL (4.70-6.10) L Hemoglobin 12.1 G/DL (14.2-18.0) L Hematocrit 36.4 % (42.0-52.0) L Mean Corpuscular Volume 94 FL (80-99) Mean Corpuscular Hemoglobin 31.2 PG (27.0-31.0) H Mean Corpuscular Hemoglobin Concent 33.2 G/DL (32.0-36.0) Red Cell Distribution Width 13.7 % (11.6-14.8) Platelet Count 140 K/UL (150-450) L Mean Platelet Volume 8.3 FL (6.5-10.1) Neutrophils (%) (Auto) 41.4 % (45.0-75.0) L Lymphocytes (%) (Auto) 45.8 % (20.0-45.0) H Monocytes (%) (Auto) 8.1 % (1.0-10.0) Eosinophils (%) (Auto) 3.7 % (0.0-3.0) H Basophils (%) (Auto) 1.1 % (0.0-2.0) Sodium Level 141 MMOL/L (136-145) Potassium Level 4.2 MMOL/L (3.5-5.1) Chloride Level 109 MMOL/L (98-107) H Carbon Dioxide Level 26 MMOL/L (21-32) Anion Gap 6 mmol/L (5-15) Blood Urea Nitrogen 20 mg/dL (7-18) H Creatinine 0.8 MG/DL (0.55-1.30) Estimat Glomerular Filtration Rate mL/min (>60) Glucose Level 133 MG/DL (74-106) H Calcium Level 8.0 MG/DL (8.5-10.1) L Phosphorus Level 1.9 MG/DL (2.5-4.9) L Magnesium Level 2.0 MG/DL (1.8-2.4) Total Bilirubin 0.6 MG/DL (0.2-1.0) Aspartate Amino Transf (AST/SGOT) 26 U/L (15-37) Alanine Aminotransferase (ALT/SGPT) 22 U/L (12-78) Alkaline Phosphatase 88 U/L (46-116) Total Protein 7.3 G/DL (6.4-8.2) Albumin 2.3 G/DL (3.4-5.0) L Globulin 5.0 g/dL Albumin/Globulin Ratio 0.5 (1.0-2.7) L Height (Feet): 5 Height (Inches): 10.00 Weight (Pounds): 220 General Appearance: WD/WN, no apparent distress, alert Cardiovascular: normal rate Respiratory/Chest: normal breath sounds, no respiratory distress Abdominal Exam: normal bowel sounds, non tender, soft Extremities: normal range of motion, non-tender Jevon Ruiz NP Jul 28, 2018 10:59
[2018-07-28 12:00] VITALS: BP 119/71
[2018-07-28] MEDS ORDERED: NS 500ML ONE (12:29)
--- NOTE | 2018-07-29 00:26 | General Progress Note ---
Assessment/Plan Assessment/Plan Encephalopathy due to metabolic disorder and is chronic and dementia. PLAN: 1. The patient will be continued on Ativan p.r.n. and continue the Depakote. 2. Provide the patient with reality orientation. Subjective Date patient seen: Jul 28, 2018 Neurologic/Psychiatric: Reports: anxiety, depressed, emotional problems Allergies: Coded Allergies: MORPHINE (Unverified Allergy, Unknown, 03/31/18) Objective Last 24 Hour Vital Signs Date Time Temp Pulse Resp B/P (MAP) Pulse Ox O2 Delivery O2 Flow Rate FiO2 07/28/18 12:00 97.3 65 18 119/71 (87) 99 07/28/18 09:00 Room Air 07/28/18 04:00 98.0 69 20 128/66 (86) 98 Intake and Output 07/28/18 07/29/18 19:00 07:00 # Bowel Movements 1 Laboratory Tests 07/28/18 04:50: White Blood Count 6.2, Red Blood Count 3.87L, Hemoglobin 12.1L, Hematocrit 36.4L , Mean Corpuscular Volume 94, Mean Corpuscular Hemoglobin 31.2H, Mean Corpuscular Hemoglobin Concent 33.2, Red Cell Distribution Width 13.7, Platelet Count 140L, Mean Platelet Volume 8.3, Neutrophils (%) (Auto) 41.4L, Lymphocytes (%) (Auto) 45.8H, Monocytes (%) (Auto) 8.1, Eosinophils (%) (Auto) 3.7H, Basophils (%) (Auto) 1.1, Sodium Level 141, Potassium Level 4.2, Chloride Level 109H, Carbon Dioxide Level 26, Anion Gap 6, Blood Urea Nitrogen 20H, Creatinine 0.8, Estimat Glomerular Filtration Rate , Glucose Level 133H, Calcium Level 8.0L , Phosphorus Level 1.9L, Magnesium Level 2.0, Total Bilirubin 0.6, Aspartate Amino Transf (AST/SGOT) 26, Alanine Aminotransferase (ALT/SGPT) 22, Alkaline Phosphatase 88, Total Protein 7.3, Albumin 2.3L, Globulin 5.0, Albumin/Globulin Ratio 0.5L Height (Feet): 5 Height (Inches): 10.00 Weight (Pounds): 220 General Appearance: confused, agitated Sue Rodriguez MD Jul 29, 2018 00:25
--- NOTE | 2018-07-29 00:27 | Psych Consult Progress Note ---
Psych Consult Progress Note Consult 07/27/18 the pt is the same cont to have agitation AXIS I Encephalopathy due to metabolic disorder and is chronic and dementia. AXIS II Deferred. AXIS III As above. AXIS IV Low. AXIS V Global assessment of functioning is 10. PLAN: 1. The patient will be continued on Ativan p.r.n. and continue the Depakote. 2. Provide the patient with reality orientation. Vital Signs Last 24 Hour Vital Signs Date Time Temp Pulse Resp B/P (MAP) Pulse Ox O2 Delivery O2 Flow Rate FiO2 07/28/18 12:00 97.3 65 18 119/71 (87) 99 07/28/18 09:00 Room Air 07/28/18 04:00 98.0 69 20 128/66 (86) 98 Labs Laboratory Tests Test 07/28/18 04:50 White Blood Count 6.2 K/UL (4.8-10.8) Red Blood Count 3.87 M/UL (4.70-6.10) L Hemoglobin 12.1 G/DL (14.2-18.0) L Hematocrit 36.4 % (42.0-52.0) L Mean Corpuscular Volume 94 FL (80-99) Mean Corpuscular Hemoglobin 31.2 PG (27.0-31.0) H Mean Corpuscular Hemoglobin Concent 33.2 G/DL (32.0-36.0) Red Cell Distribution Width 13.7 % (11.6-14.8) Platelet Count 140 K/UL (150-450) L Mean Platelet Volume 8.3 FL (6.5-10.1) Neutrophils (%) (Auto) 41.4 % (45.0-75.0) L Lymphocytes (%) (Auto) 45.8 % (20.0-45.0) H Monocytes (%) (Auto) 8.1 % (1.0-10.0) Eosinophils (%) (Auto) 3.7 % (0.0-3.0) H Basophils (%) (Auto) 1.1 % (0.0-2.0) Sodium Level 141 MMOL/L (136-145) Potassium Level 4.2 MMOL/L (3.5-5.1) Chloride Level 109 MMOL/L (98-107) H Carbon Dioxide Level 26 MMOL/L (21-32) Anion Gap 6 mmol/L (5-15) Blood Urea Nitrogen 20 mg/dL (7-18) H Creatinine 0.8 MG/DL (0.55-1.30) Estimat Glomerular Filtration Rate mL/min (>60) Glucose Level 133 MG/DL (74-106) H Calcium Level 8.0 MG/DL (8.5-10.1) L Phosphorus Level 1.9 MG/DL (2.5-4.9) L Magnesium Level 2.0 MG/DL (1.8-2.4) Total Bilirubin 0.6 MG/DL (0.2-1.0) Aspartate Amino Transf (AST/SGOT) 26 U/L (15-37) Alanine Aminotransferase (ALT/SGPT) 22 U/L (12-78) Alkaline Phosphatase 88 U/L (46-116) Total Protein 7.3 G/DL (6.4-8.2) Albumin 2.3 G/DL (3.4-5.0) L Globulin 5.0 g/dL Albumin/Globulin Ratio 0.5 (1.0-2.7) L Sue Rodriguez MD Jul 29, 2018 00:27
--- NOTE | 2018-07-29 10:57 | Discharge Summary ---
Discharge Summary Discharge Summary _ DATE OF ADMISSION: 07/24/2018 DATE OF DISCHARGE: 07/28/2018 REASON FOR ADMISSION: 78 years old male with past medical history of hypertension, COPD, diabetes, dysphagia, feeding tube, CVA, dementia, seizure disorder, was sent from the snf facility for evaluation due to malfunctioning gastrostomy tube and elevated INR. Upon evaluation vital signs were stable. Laboratory workup revealed no leukocytosis , mild anemia with hemoglobin 13 and hematocrit 39.9. INR 1.7. Stable renal parameters and electrolytes. Troponin negative. EKG revealed sinus rhythm, no acute ischemic changes. G-tube was malfunctioning , and bleeding at G tube site noted. G-tube was removed at the bedside in emergency department. Patient admitted with diagnoses of G-tube malfunctioning ,coagulopathy, dysphagia, feeding by G-tube. CONSULTANTS: GI specialist Dr. Wilson utility spray operator Dr. Duke cake press operator helper/oncologist Dr. Ramirez psychiatrist [facility] COURSE: Patient was kept nothing by mouth and started on the IV fluids. Patient started on the GI prophylaxis twice a day. Vitamin K was given , bleeding resolved . The next day G tube was replaced at the bedside by GI specialist. Chest x-ray confirmed placement. Patient started on tube feeding as per registered dietitian recommendations . Strict aspiration/reflux precautions were maintained. GI recommended dressing changes twice a day and as needed to old G-tube site. Hemoglobin and hematocrit were closely monitored with goal to keep hemoglobin above 7. Supervisor Shuttle Preparation closely followed . No need for anemia workup at this time. Supervisor Shuttle Preparation recommended to keep off Coumadin at this time and closely monitor INR and for any signs of bleeding. No further evidence of bleeding while in the hospital. Nephrology consult was requested for oliguria. Tan catheter was inserted , with immediate 400 mL output of urine. Renal parameters and electrolytes were closely monitored. Electrolytes corrected as needed. Nephrotoxins were avoided. Psychiatrist seen and evaluated patient, diagnosed patient with encephalopathy due to metabolic disorder along with dementia. Psychiatric medication regimen optimized. Blood sugar was closely monitored and remained stable. Patient clinically stabilized and was ready for discharge back to snf [facility] for continuation of care FINAL DIAGNOSES: Encephalopathy due to metabolic disorder Coagulopathy with history of Coumadin use Due to malfunctioning status post replacement Dysphagia feeding by G-tube Dementia Anemia of chronic disease Functional quadriplegia Urinary outlet obstruction DISCHARGE MEDICATIONS: See Medication Reconciliation list. DISCHARGE INSTRUCTIONS: Patient was discharged to the snf facility. Follow up with medical doctor at the facility. I have been assigned to dictate discharge summary for this account. I was not involved in the patient's management. Yahaira Crocker NP Jul 29, 2018 10:57
== END 2018-07-28 12:30 | DRG 393 ==
LOC: EDBD 13:00 → EMR 13:35 → 4E 14:24 → EDBEDREQ 15:21
DX: K94.23 Gastrostomy malfunction (principal); G93.41 Metabolic encephalopathy; R53.2 Functional quadriplegia; N13.8 Other obstructive and reflux uropathy; M86.9 Osteomyelitis, unspecified; Y83.3 Surgical operation with formation of external stoma as the cause of abnormal reaction of the patient, or of later complication, without mention of misadventure at the time of the procedure; R79.1 Abnormal coagulation profile; R13.10 Dysphagia, unspecified; F03.90 Unspecified dementia, unspecified severity, without behavioral disturbance, psychotic disturbance, mood disturbance, and anxiety; F09 Unspecified mental disorder due to known physiological condition; I48.91 Unspecified atrial fibrillation; E78.5 Hyperlipidemia, unspecified; I10 Essential (primary) hypertension; K21.9 Gastro-esophageal reflux disease without esophagitis; N40.0 Benign prostatic hyperplasia without lower urinary tract symptoms; J44.9 Chronic obstructive pulmonary disease, unspecified; Z86.73 Personal history of transient ischemic attack (TIA), and cerebral infarction without residual deficits; D63.8 Anemia in other chronic diseases classified elsewhere; E11.9 Type 2 diabetes mellitus without complications
CPT/HCPCS: 36415; 74018; 80053; 81001; 82607; 82728; 82746; 82962; 83036; 83540; 83550; 83735; 84100; 84443; 84550; 85007; 85025; 85610; 85730; 87081; 99285

== ENCOUNTER 2019-03-29 12:23 | Inpatient (IN) | payer MEDICARE, MEDICAID ==
[~2019-03-29] VITALS: Ht 182.9 cm; Wt 161.6 kg
[~2019-03-29 12:23] MED LIST changes: +ASPIRIN81 MG ORAL; +MILK OF MA400 MG/51 GT; -MILK OF MA400 MG/51 ORAL; +POTASSIUM40 MEQ/11 GT; -POTASSIUM40 MEQ/11 PO; +WARFARIN SODIUM4 MG GT
--- NOTE | 2019-03-29 13:00 | NUR ---
ED Nurse Note:pt. was BIBA from SNF with fluid overload, non verbal VSS, has old scar on right lower leg and sacral area, incontinent
[2019-03-29 13:22] VITALS: BP 102/68
--- NOTE | 2019-03-29 13:35 | Emergency Room Report ---
History of Present Illness General Chief Complaint: Edema Source: Medical Record, EMS (Steve Tang MD) Present Illness HPI 78-year-old presents ED for evaluation. Brought in by EMS from senior care facility. Notes increased swelling to the upper extremities and lower extremities for the last few days. History of CHF. Patient nonverbal at baseline. Unable to provide any additional history at this time. At baseline mentation. No reported fevers or chills. No reported shortness of breath. No other aggravating relieving factors. No other associated symptoms (Steve Tang MD) Allergies: Coded Allergies: MORPHINE (Unverified Allergy, Unknown, 03/31/18) Patient History Past Medical History: HTN, COPD, CVA/TIA, dementia Past Surgical History: none Pertinent Family History: none Social History: Denies: smoking, alcohol use, drug use Immunizations: UTD Reviewed Nursing Documentation: PMH: Agreed; PSxH: Agreed (Steve Tang MD) Nursing Documentation-PMH Hx Cardiac Problems: Yes Hx Hypertension: Yes Hx COPD: Yes Hx Diabetes: Yes Hx Cancer: No Hx Gastrointestinal Problems: Yes - GT placed prior to arrival. Hx Cerebrovascular Accident: Yes Hx Dementia: Yes Hx Encephalitis: Yes Hx Seizures: Yes Hx Aphasia: Yes Hx Dysphasia: Yes Hx Weakness: Yes (Steve Tang MD) Review of Systems All Other Systems: limited (Steve Tang MD) Physical Exam Vital Signs Date Time Temp Pulse Resp B/P (MAP) Pulse Ox O2 Delivery O2 Flow Rate FiO2 03/29/19 12:24 98.1 64 14 131/78 (95) 94 Room Air Sp02 EP Interpretation: reviewed, normal General Appearance: alert, GCS 15, non-toxic, other Head: normocephalic Eyes: bilateral eye normal inspection, bilateral eye PERRL ENT: normal ENT inspection Neck: normal inspection Respiratory: chest non-tender, lungs clear, normal breath sounds, speaking full sentences Cardiovascular #1: regular rate, rhythm, no edema Gastrointestinal: normal bowel sounds, non tender, soft, non-distended, no guarding, no rebound Rectal: deferred Genitourinary: no CVA tenderness Musculoskeletal: swelling - bilateral UEs Neurologic: other - nonverbal Psychiatric: other - nonverbal Skin: normal color Lymphatic: normal inspection (Steve Tang MD) Medical Decision Making Diagnostic Impression: Primary Impression: Fluid overload Qualified Codes: E87.70 - Fluid overload, unspecified Additional Impression: Peripheral edema ER Course Hospital Course 78-year-old male presents ED with increased congestion, generalized swelling Differential diagnoses include: NM/unstable angina, contusion, muscle strain, PTX, rib fracture Clinical course Patient placed on stretcher. on cardiac exercise specialist. After initial history and physical I ordered labs, EKG, chest x-ray, b/l UE dopplers labs reviewed- no leukocytosis, hemoglobin/hematocrit stable, electrolytes ok, trop negative EKG - NSR, no acute ischemic changes interpreted by me doppler US - negative for DVT Chest x-ray- cardiomegaly, pulmonary congestion Lasix given. Case discussed with Dr. Faria and he agreed to accept the patient to his service for further care and support I. I feel this is a highly complex case requiring extensive working including EKG/Rhythm strip, Xray/CT/US, Blood/urine lab work, repeat exams while in ED, and administration of strong opiates/narcotics for pain control, admission to hospital or close patient follow up. Diagnosis - fluid overload, peripheral edema admitted to telemetry in serious condition Labs Test 03/29/19 13:50 03/30/19 05:49 03/30/19 13:50 White Blood Count 5.9 K/UL (4.8-10.8) 4.5 K/UL (4.8-10.8) Red Blood Count 4.33 M/UL (4.70-6.10) 4.27 M/UL (4.70-6.10) Hemoglobin 13.8 G/DL (14.2-18.0) 14.0 G/DL (14.2-18.0) Hematocrit 42.9 % (42.0-52.0) 42.0 % (42.0-52.0) Mean Corpuscular Volume 99 FL (80-99) 98 FL (80-99) Mean Corpuscular Hemoglobin 31.9 PG (27.0-31.0) 32.7 PG (27.0-31.0) Mean Corpuscular Hemoglobin Concent 32.2 G/DL (32.0-36.0) 33.2 G/DL (32.0-36.0) Red Cell Distribution Width 13.4 % (11.6-14.8) 13.3 % (11.6-14.8) Platelet Count 111 K/UL (150-450) 115 K/UL (150-450) Mean Platelet Volume 8.2 FL (6.5-10.1) 8.2 FL (6.5-10.1) Neutrophils (%) (Auto) 37.9 % (45.0-75.0) 42.1 % (45.0-75.0) Lymphocytes (%) (Auto) 47.7 % (20.0-45.0) 43.1 % (20.0-45.0) Monocytes (%) (Auto) 9.5 % (1.0-10.0) 10.2 % (1.0-10.0) Eosinophils (%) (Auto) 3.3 % (0.0-3.0) 3.2 % (0.0-3.0) Basophils (%) (Auto) 1.6 % (0.0-2.0) 1.4 % (0.0-2.0) Prothrombin Time 16.1 SEC (9.30-11.50) 15.8 SEC (9.30-11.50) Prothromb Time International Ratio 1.5 (0.9-1.1) 1.5 (0.9-1.1) Activated Partial Thromboplast Time 33 SEC (23-33) Sodium Level 140 MMOL/L (136-145) 141 MMOL/L (136-145) Potassium Level 3.9 MMOL/L (3.5-5.1) 4.1 MMOL/L (3.5-5.1) Chloride Level 104 MMOL/L (98-107) 106 MMOL/L (98-107) Carbon Dioxide Level 31 MMOL/L (21-32) 31 MMOL/L (21-32) Anion Gap 5 mmol/L (5-15) 4 mmol/L (5-15) Blood Urea Nitrogen 23 mg/dL (7-18) 24 mg/dL (7-18) Creatinine 0.8 MG/DL (0.55-1.30) 0.8 MG/DL (0.55-1.30) Estimat Glomerular Filtration Rate mL/min (>60) mL/min (>60) Glucose Level 127 MG/DL (74-106) 160 MG/DL (74-106) Calcium Level 8.7 MG/DL (8.5-10.1) 8.9 MG/DL (8.5-10.1) Total Bilirubin 0.3 MG/DL (0.2-1.0) 0.3 MG/DL (0.2-1.0) Aspartate Amino Transf (AST/SGOT) 19 U/L (15-37) 19 U/L (15-37) Alanine Aminotransferase (ALT/SGPT) 16 U/L (12-78) 13 U/L (12-78) Alkaline Phosphatase 82 U/L (46-116) 83 U/L (46-116) Total Creatine Kinase 173 U/L (26-308) Creatine Kinase MB 1.0 NG/ML (0.0-3.6) Creatine Kinase MB Relative Index 0.5 Troponin I 0.008 ng/mL (0.000-0.056) Pro-B-Type Natriuretic Peptide 215 pg/mL (0-125) Total Protein 7.1 G/DL (6.4-8.2) 7.3 G/DL (6.4-8.2) Albumin 2.5 G/DL (3.4-5.0) 2.3 G/DL (3.4-5.0) Globulin 4.6 g/dL 5.0 g/dL Albumin/Globulin Ratio 0.5 (1.0-2.7) 0.5 (1.0-2.7) Urine Color Yellow Urine Appearance Slightly cloudy Urine pH 8 (4.5-8.0) Urine Specific [place] 1.010 (1.005-1.035) Urine Protein Negative (NEGATIVE) Urine Glucose (UA) Negative (NEGATIVE) Urine Ketones 1+ (NEGATIVE) Urine Blood Negative (NEGATIVE) Urine Nitrite Positive (NEGATIVE) Urine Bilirubin Negative (NEGATIVE) Urine Urobilinogen 1 MG/DL (0.0-1.0) Urine Leukocyte Esterase 1+ (NEGATIVE) Urine RBC 0 /HPF (0 - 0) Urine WBC 0-2 /HPF (0 - 0) Urine Squamous Epithelial Cells None /LPF (NONE/OCC) Urine Triple Phosphate Crystals Occasional /LPF (NONE) Urine Bacteria Many /HPF (NONE) (Steve Tang MD) ER Course Please see above note. Labs reviewed. Lasix ordered. Contacted Dr. Faria admission. Laboratory Tests Test 03/29/19 13:50 White Blood Count 5.9 K/UL (4.8-10.8) Red Blood Count 4.33 M/UL (4.70-6.10) L Hemoglobin 13.8 G/DL (14.2-18.0) L Hematocrit 42.9 % (42.0-52.0) Mean Corpuscular Volume 99 FL (80-99) Mean Corpuscular Hemoglobin 31.9 PG (27.0-31.0) H Mean Corpuscular Hemoglobin Concent 32.2 G/DL (32.0-36.0) Red Cell Distribution Width 13.4 % (11.6-14.8) Platelet Count 111 K/UL (150-450) L Mean Platelet Volume 8.2 FL (6.5-10.1) Neutrophils (%) (Auto) 37.9 % (45.0-75.0) L Lymphocytes (%) (Auto) 47.7 % (20.0-45.0) H Monocytes (%) (Auto) 9.5 % (1.0-10.0) Eosinophils (%) (Auto) 3.3 % (0.0-3.0) H Basophils (%) (Auto) 1.6 % (0.0-2.0) Prothrombin Time 16.1 SEC (9.30-11.50) H Prothrombin Time INR 1.5 (0.9-1.1) H PTT 33 SEC (23-33) Sodium Level 140 MMOL/L (136-145) Potassium Level 3.9 MMOL/L (3.5-5.1) Chloride Level 104 MMOL/L (98-107) Carbon Dioxide Level 31 MMOL/L (21-32) Anion Gap 5 mmol/L (5-15) Blood Urea Nitrogen 23 mg/dL (7-18) H Creatinine 0.8 MG/DL (0.55-1.30) Estimate Glomerular Filtration Rate mL/min (>60) Glucose Level 127 MG/DL (74-106) H Calcium Level 8.7 MG/DL (8.5-10.1) Total Bilirubin 0.3 MG/DL (0.2-1.0) Aspartate Amino Transferase (AST) 19 U/L (15-37) Alanine Aminotransferase (ALT) 16 U/L (12-78) Alkaline Phosphatase 82 U/L (46-116) Total Creatine Kinase 173 U/L (26-308) Creatine Kinase MB 1.0 NG/ML (0.0-3.6) Creatine Kinase MB Relative Index 0.5 Troponin I 0.008 ng/mL (0.000-0.056) Pro-B-Type Natriuretic Peptide 215 pg/mL (0-125) H Total Protein 7.1 G/DL (6.4-8.2) Albumin 2.5 G/DL (3.4-5.0) L Globulin 4.6 g/dL Albumin/Globulin Ratio 0.5 (1.0-2.7) L (Bruce Morgan MD) EKG Diagnostic Results Rate: normal Rhythm: NSR ST Segments: no acute changes ASA given to the pt in ED: No (Steve Tang MD) Rhythm Strip Diag. Results EP Interpretation: yes Rhythm: NSR, no PVC's, no ectopy (Steve Tang MD) Chest X-Ray Diagnostic Results Chest X-Ray Diagnostic Results : Chest X-Ray Ordered: Yes # of Views/Limited/Complete: 1 View Indication: Other EP Interpretation: Yes Interpretation: no consolidation, no effusion, no pneumothorax, other - cardiomegaly Impression: Other - chf Electronically Signed by: Electronically signed by Steve Tang MD (Steve Tang MD) CT/MRI/US Diagnostic Results CT/MRI/US Diagnostic Results : Imaging Test Ordered: venous duplex Impression no evidence of DVT (Steve Tang MD) CT/MRI/US Diagnostic Results : Imaging Test Ordered: Ultrasound of upper extremities (Bruce Morgan MD) Last Vital Signs Date Time Temp Pulse Resp B/P (MAP) Pulse Ox O2 Delivery O2 Flow Rate FiO2 03/29/19 12:42 64 14 Room Air 03/29/19 12:24 98.1 131/78 (95) 94 Status: improved (Steve Tang MD) Status: improved (Bruce Morgan MD) Disposition: ADMITTED INPATIENT Condition: Serious Referrals: Aliza Faria MD (PCP) Steve Tang MD Mar 29, 2019 13:35 Bruce Morgan MD Mar 29, 2019 15:12
--- NOTE | 2019-03-29 14:00 | NUR ---
ED Nurse Note:blood sent to labs
[2019-03-29 14:03] LABS: BASOPHILS % (AUTO) 1.6 % (0.0-2.0); EOSINOPHILS % (AUTO) 3.3 % (0.0-3.0); HEMATOCRIT 42.9 % (42.0-52.0); HEMOGLOBIN 13.8 G/DL (14.2-18.0); LYMPHOCYTES % (AUTO) 47.7 % (20.0-45.0); MEAN CORPUSCULAR VOLUME 99 FL (80-99); MONOCYTES % (AUTO) 9.5 % (1.0-10.0); NEUTROPHILS % (AUTO) 37.9 % (45.0-75.0); PLATELET COUNT 111 K/UL (150-450); RED BLOOD COUNT 4.33 M/UL (4.70-6.10); RED CELL DISTRIBUTION WIDTH 13.4 % (11.6-14.8); WHITE BLOOD COUNT 5.9 K/UL (4.8-10.8)
[2019-03-29 14:14] LABS: ANION GAP 5 mmol/L (5-15); BLOOD UREA NITROGEN 23 mg/dL (7-18); CALCIUM 8.7 MG/DL (8.5-10.1); CARBON DIOXIDE 31 MMOL/L (21-32); CHLORIDE 104 MMOL/L (98-107); CREATININE 0.8 MG/DL (0.55-1.30); POTASSIUM 3.9 MMOL/L (3.5-5.1); SODIUM 140 MMOL/L (136-145)
[2019-03-29 14:15] LABS: INR 1.5 (0.9-1.1)
[2019-03-29 14:30] LABS: ALANINE AMINOTRANSFERASE 16 U/L (12-78); ALBUMIN 2.5 G/DL (3.4-5.0); ALBUMIN/GLOBULIN RATIO 0.5 (1.0-2.7); ALKALINE PHOSPHATASE 82 U/L (46-116); ASPARTATE AMINO TRANSFERASE 19 U/L (15-37); BILIRUBIN,TOTAL 0.3 MG/DL (0.2-1.0); CREATINE KINASE 173 U/L (26-308)
[2019-03-29 15:30] VITALS: BP 106/65
--- NOTE | 2019-03-29 15:30 | NUR ---
NURSE NOTES: Report received from Brooklynn RN from ED. Pt transferred from ED via [facility] with RN and installation and service technician. Pt awake and responsive to tactile stimuli and unable to make needs known. Noted healing UTD on sacral and stage 1 redness on left heel, and multilple healing wounds noted on bilateral legs during body assessment. No signs of distress noted. IV site in L shoulder with 22G SL patent and asymptomatic. Bed in lowest position and locked. Call light within easy reach. On room air and O2 saturating with 98% on room air. Condom cath applied and yellow colored urine noted from drainage bag. No belonging came with the patient. Will continue to plan of care.
--- NOTE | 2019-03-29 15:30 | NUR ---
ED Nurse Note:called report to tele, pt. was taken up stairs
[2019-03-29] MEDS ORDERED: Fleet's Enema 133ml RECTAL PRN (16:45)
[2019-03-29] MEDS ORDERED: Milk of Magnesia 30ml Ud GT PRN (16:45)
[2019-03-29] MEDS ORDERED: Acetaminophen 650mg/20.3ml GT PRN (16:45)
--- NOTE | 2019-03-29 16:52 | NUR ---
NURSE NOTES: Report received from Brooklynn RN from ED. Pt transferred from ED via [place] with RN and food technician. Pt awake and responsive to tactile stimuli and unable to make needs known. Noted healing UTD on sacral and stage 1 redness on left heel, and multilple healing wounds noted on bilateral legs during body assessment. No signs of distress noted. IV site in L shoulder with 22G SL patent and asymptomatic. Bed in lowest position and locked. Call light within easy reach. On room air and O2 saturating with 98% on room air. Condom cath applied and yellow colored urine noted from drainage bag. Will continue to plan of care.
[2019-03-29] MEDS ORDERED: Lactulose 20gm/30ml UDC ORAL SCH (17:00)
[2019-03-29] MEDS ORDERED: Warfarin Sodium 4mg GT SCH (18:00)
[2019-03-29] MEDS: NovoLOG Insulin Flexpen SUBQ SCH (18:51)
--- NOTE | 2019-03-29 19:41 | NUR ---
HAND-OFF: Report given to Daily VARGAS. Pt remains stable.
--- NOTE | 2019-03-29 19:51 | NUR ---
NURSE NOTES: Report received from ALICIA Elaine. Pt is in stable condition lying comfortably in bed. Bed in the lowest position, bed brakes engaged, side rails up x3 and call light within reach. Will continue to monitor.
[2019-03-29 20:00] VITALS: BP 121/76
[2019-03-29] MEDS: Valproic Acid 250mg/5ml Liquid GT SCH (20:22)
--- NOTE | 2019-03-29 23:45 | History and Physical Report ---
DATE OF ADMISSION: 03/29/2019 HISTORY OF PRESENT ILLNESS: The patient is a very poor historian, cannot rely upon his history, is here because of worsening edema per nursing staff and CHF. The patient is also diabetic, also has soft therapeutic INR. The patient is on Coumadin also. 9 especially on the upper extremity. The patient is nonverbal, poor historian. Basically, there are no history from the patient. The patient also has history of CHF. PAST MEDICAL HISTORY: CHF, hypertension, COPD, CVA. Denies history of arrhythmia, diabetes, COPD, hypertension, GERD, CVA, dementia, advanced, history of seizures, aphasic. Quadriplegia, history of gallstone pancreatitis, history of wounds. Hyperlipidemia as well as BPH and GERD. PAST SURGICAL HISTORY: PEG. History of BKA as well. ALLERGIES: To morphine. MEDICATIONS: Amlodipine, Comadin, Colace, Protonix, Flomax, valproic acid, warfarin, docusate, clonidine, and Lipitor. FAMILY HISTORY: Unable to obtain. SOCIAL HISTORY: Unable to obtain. REVIEW OF SYSTEMS: Unable to obtain. PHYSICAL EXAMINATION: VITAL SIGNS: Temperature 98.1, pulse is 59, blood pressure 102/68. HEENT: PERRLA. NECK: Supple. No lymphadenopathy. CHEST: Clear to auscultation. CARDIOVASCULAR: Regular rate and rhythm. GASTROINTESTINAL: Soft, nontender, nondistended. Positive bowel sounds. EXTREMITIES: The patient has pitting edema especially in the upper extremity worse than the lower extremities. The patient has edema throughout, unable to talk aphasic, quadriplegic. LABORATORY DATA: WBC of 5.9, hemoglobin of 13.8, platelet 111,000. Sodium 140, potassium 3.9, chloride 104. BUN of 23, creatinine 0.8. Glucose of 127. ASSESSMENT AND PLAN: 1. Worsening edema. 2. CHF exacerbation. 3. Subtherapeutic INR. I have asked Dr. Laurent, Dr. Fly Ramirez to see the patient for Coumadin adjustment as well as for management of CHF and edema. Aliza Faria M.D. DR: INDIO JOB#: [id number] CC:
[2019-03-30] VITALS: BP 129/78
[2019-03-30] MEDS: NovoLOG Insulin Flexpen SUBQ SCH ×4 (00:28→18:02)
[2019-03-30 04:00] VITALS: BP 133/78
[2019-03-30 07:00] LABS: BASOPHILS % (AUTO) 1.4 % (0.0-2.0); EOSINOPHILS % (AUTO) 3.2 % (0.0-3.0); LYMPHOCYTES % (AUTO) 43.1 % (20.0-45.0); MEAN CORPUSCULAR VOLUME 98 FL (80-99); MONOCYTES % (AUTO) 10.2 % (1.0-10.0); NEUTROPHILS % (AUTO) 42.1 % (45.0-75.0); PLATELET COUNT 115 K/UL (150-450); RED BLOOD COUNT 4.27 M/UL (4.70-6.10); RED CELL DISTRIBUTION WIDTH 13.3 % (11.6-14.8); WHITE BLOOD COUNT 4.5 K/UL (4.8-10.8)
[2019-03-30 07:22] LABS: ALANINE AMINOTRANSFERASE 13 U/L (12-78); ALBUMIN 2.3 G/DL (3.4-5.0); ALBUMIN/GLOBULIN RATIO 0.5 (1.0-2.7); ALKALINE PHOSPHATASE 83 U/L (46-116); ANION GAP 4 mmol/L (5-15); ASPARTATE AMINO TRANSFERASE 19 U/L (15-37); BILIRUBIN,TOTAL 0.3 MG/DL (0.2-1.0); BLOOD UREA NITROGEN 24 mg/dL (7-18); CALCIUM 8.9 MG/DL (8.5-10.1); CARBON DIOXIDE 31 MMOL/L (21-32); CHLORIDE 106 MMOL/L (98-107); CREATININE 0.8 MG/DL (0.55-1.30); POTASSIUM 4.1 MMOL/L (3.5-5.1); SODIUM 141 MMOL/L (136-145)
--- NOTE | 2019-03-30 07:29 | NUR ---
HAND-OFF: Report given to ALICIA Kirby.
--- NOTE | 2019-03-30 07:30 | NUR ---
NURSE NOTES: Received report from Daily/RN, Patient asleep, Lying semi-diez, no acute distress/SOB noted. Non-Verbal, Unable to make needs known. Checked IV, patent and intact, no bleeding or infiltration noted. Bed in lowest position and locked, Call light within reach. Will continue plan of care.
[2019-03-30 07:35] LABS: INR 1.5 (0.9-1.1)
--- NOTE | 2019-03-30 07:41 | NUR ---
CASE MANAGEMENT: INITIAL REVIEW 78 YO M MOISÉS FROM [facility] CONV CC: EDEMA PMHx: HTN. COPD. CVA. DEMENTIA. SI:SWELLING UPPER EXTREMITIES. CHF EXACERBATION. T 98.1 HR 64 RR 14 B/P 131/78 SATS 94% ON RA BUN 23 GLU 127 BNP 215 IS: LASIX IV X1 PATIENT ADMITTED TO TELE 03/29/2019 @ 5313 DCP: PATIENT TO BE DISCHARGED TO SNF ONCE MEDICALLY CLEARED. PLAN OF CARE: CARDIO EVAL Addendum: 03/30/19 at 1541 by Aimee Watkins INTERQUAL
[2019-03-30 08:00] VITALS: BP 149/81
--- NOTE | 2019-03-30 09:07 | Consultation ---
History of Present Illness General Chief Complaint: Edema Present Illness Allergies: Coded Allergies: MORPHINE (Unverified Allergy, Unknown, 03/31/18) Medication History Scheduled Amino Acids/Protein Hydrolys (Pro-Stat Liquid), 30 ML GT DAILY, (Reported) Amlodipine Besylate (Norvasc), 2.5 MG GT BID, (Reported) Amoxicillin* (Amoxicillin*), 500 MG ORAL EVERY 8 HOURS, (Reported) Aspirin* (Aspirin*), 81 MG ORAL DAILY, (Reported) Atorvastatin Calcium* (Atorvastatin Calcium*), 20 MG GT BEDTIME, (Reported) Calcium Carbonate (Calcium), 500 MG GT DAILY, (Reported) Clonidine Hcl* (Catapres*), 0.1 MG GT PRN, (Reported) Docusate Sodium (Docusate Sodium), 100 MG GT DAILY, (Reported) Docusate Sodium* (Colace*), 100 MG GT TWICE A DAY, (Reported) Doxazosin Mesylate* (Cardura*), 1 MG GT DAILY, (Reported) Furosemide* (Lasix*), 20 MG GT DAILY, (Reported) Metoprolol Tartrate* (Metoprolol Tartrate*), 25 MG GT DAILY, (Reported) Multivitamin with Minerals (Multivitamins with Minerals), 1 TAB GT DAILY, ( Reported) Omeprazole (Omeprazole), 40 MG ORAL DAILY, (Reported) Pantoprazole* (Pantoprazole*), 40 MG GT DAILY, (Reported) Phosphorus (Phospha 250 Neutral Tablet), 250 MG GT BID, (Reported) Potassium Chloride (Potassium Chloride), 20 MEQ PO TID, (Reported) Sulfamethoxazole/Trimethoprim Susp* (Bactrim Susp*), 20 ML ORAL TWICE A DAY, ( Reported) Tamsulosin HCl (Flomax), 0.4 MG GT DAILY, (Reported) Tamsulosin Hcl (Tamsulosin Hcl*), 0.4 MG GT BEDTIME, (Reported) Tramadol Hcl* (Ultram*), 50 MG GT EVERY 6 HOURS, (Reported) Valproic Acid (Depakene), 500 MG GT TID, (Reported) Valproic Acid (Depakene), 500 MG GT TID, (Reported) Vit C/Ascorbate Ca/Ascorb Sod (Vitamin C 500 Mg/15 Ml Liquid), 500 MG GT DAILY, (Reported) Warfarin Sod* (Warfarin Sod*), 2.5 MG GT DAILY, (Reported) Warfarin Sod* (Warfarin Sod*), 4 MG ORAL DAILY, (Reported) Zinc Sulfate (Zinc Sulfate*), 220 MG GT DAILY, (Reported) Scheduled PRN Acetaminophen* (Acetaminophen 325MG Tablet*), 650 MG GT Q4H PRN for Mild Pain/ Temp > 100.5, (Reported) Albuterol Sulfate* (Albuterol Sulfate Hhn*), 2.5 MG HHN Q4HR PRN, (Reported) Bisacodyl (Bisacodyl), 10 MG RC DAILY PRN for Constipation, (Reported) Clonidine Hcl* (Catapres*), 0.1 MG GT Q8HR PRN, (Reported) Magnesium Hydroxide* (Milk Of Magnesia*), 30 ML ORAL DAILY PRN for Constipation, (Reported) Na Phos,M-B/Na Phos,Di-Ba* (Fleet Enema*), 133 ML RECTAL DAILY PRN for Constipation, (Reported) Ondansetron* (Zofran*), 4 MG ORAL Q6H PRN for Nausea & Vomiting, (Reported) Patient History Healthcare decision maker Resuscitation status Full Code Advanced Directive on File Physical Exam Last 24 Hour Vital Signs Date Time Temp Pulse Resp B/P (MAP) Pulse Ox O2 Delivery O2 Flow Rate FiO2 03/30/19 08:00 97.8 70 20 149/81 (103) 95 03/30/19 04:00 66 03/30/19 04:00 98.8 69 18 133/78 (96) 98 03/30/19 00:00 64 03/30/19 00:00 98.5 70 18 129/78 (95) 96 03/29/19 21:00 Room Air 03/29/19 20:00 76 03/29/19 20:00 98.1 79 16 121/76 (91) 94 03/29/19 17:01 Room Air 03/29/19 16:32 75 03/29/19 15:30 98.1 60 16 106/65 (79) 96 03/29/19 15:26 98.1 59 14 102/68 98 Room Air 03/29/19 13:22 98.1 59 14 102/68 98 Room Air 03/29/19 12:42 64 14 Room Air 03/29/19 12:24 98.1 64 14 131/78 (95) 94 Room Air Intake and Output 03/29/19 03/30/19 19:00 07:00 Output Total 1000 ml Balance -1000 ml Output Urine Total 1000 ml # Voids 1 Laboratory Tests Test 03/29/19 13:50 03/30/19 05:49 White Blood Count 5.9 K/UL (4.8-10.8) 4.5 K/UL (4.8-10.8) L Red Blood Count 4.33 M/UL (4.70-6.10) L 4.27 M/UL (4.70-6.10) L Hemoglobin 13.8 G/DL (14.2-18.0) L 14.0 G/DL (14.2-18.0) L Hematocrit 42.9 % (42.0-52.0) 42.0 % (42.0-52.0) Mean Corpuscular Volume 99 FL (80-99) 98 FL (80-99) Mean Corpuscular Hemoglobin 31.9 PG (27.0-31.0) H 32.7 PG (27.0-31.0) H Mean Corpuscular Hemoglobin Concent 32.2 G/DL (32.0-36.0) 33.2 G/DL (32.0-36.0) Red Cell Distribution Width 13.4 % (11.6-14.8) 13.3 % (11.6-14.8) Platelet Count 111 K/UL (150-450) L 115 K/UL (150-450) L Mean Platelet Volume 8.2 FL (6.5-10.1) 8.2 FL (6.5-10.1) Neutrophils (%) (Auto) 37.9 % (45.0-75.0) L 42.1 % (45.0-75.0) L Lymphocytes (%) (Auto) 47.7 % (20.0-45.0) H 43.1 % (20.0-45.0) Monocytes (%) (Auto) 9.5 % (1.0-10.0) 10.2 % (1.0-10.0) H Eosinophils (%) (Auto) 3.3 % (0.0-3.0) H 3.2 % (0.0-3.0) H Basophils (%) (Auto) 1.6 % (0.0-2.0) 1.4 % (0.0-2.0) Prothrombin Time 16.1 SEC (9.30-11.50) H 15.8 SEC (9.30-11.50) H Prothromb Time International Ratio 1.5 (0.9-1.1) H 1.5 (0.9-1.1) H Activated Partial Thromboplast Time 33 SEC (23-33) Sodium Level 140 MMOL/L (136-145) 141 MMOL/L (136-145) Potassium Level 3.9 MMOL/L (3.5-5.1) 4.1 MMOL/L (3.5-5.1) Chloride Level 104 MMOL/L (98-107) 106 MMOL/L (98-107) Carbon Dioxide Level 31 MMOL/L (21-32) 31 MMOL/L (21-32) Anion Gap 5 mmol/L (5-15) 4 mmol/L (5-15) L Blood Urea Nitrogen 23 mg/dL (7-18) H 24 mg/dL (7-18) H Creatinine 0.8 MG/DL (0.55-1.30) 0.8 MG/DL (0.55-1.30) Estimat Glomerular Filtration Rate mL/min (>60) mL/min (>60) Glucose Level 127 MG/DL (74-106) H 160 MG/DL (74-106) H Calcium Level 8.7 MG/DL (8.5-10.1) 8.9 MG/DL (8.5-10.1) Total Bilirubin 0.3 MG/DL (0.2-1.0) 0.3 MG/DL (0.2-1.0) Aspartate Amino Transf (AST/SGOT) 19 U/L (15-37) 19 U/L (15-37) Alanine Aminotransferase (ALT/SGPT) 16 U/L (12-78) 13 U/L (12-78) Alkaline Phosphatase 82 U/L (46-116) 83 U/L (46-116) Total Creatine Kinase 173 U/L (26-308) Creatine Kinase MB 1.0 NG/ML (0.0-3.6) Creatine Kinase MB Relative Index 0.5 Troponin I 0.008 ng/mL (0.000-0.056) Pro-B-Type Natriuretic Peptide 215 pg/mL (0-125) H Total Protein 7.1 G/DL (6.4-8.2) 7.3 G/DL (6.4-8.2) Albumin 2.5 G/DL (3.4-5.0) L 2.3 G/DL (3.4-5.0) L Globulin 4.6 g/dL 5.0 g/dL Albumin/Globulin Ratio 0.5 (1.0-2.7) L 0.5 (1.0-2.7) L Height (Feet): 6 Height (Inches): 0.00 Weight (Pounds): 255 Medications Current Medications Medications (Trade) Dose Ordered Sig/Jamaal Route PRN Reason Start Time Stop Time Status Last Admin Dose Admin Acetaminophen (Tylenol) 650 mg Q4H PRN GT Mild Pain/Temp > 100.5 03/29/19 16:45 04/28/19 16:44 Amlodipine Besylate (Norvasc) 2.5 mg DAILY GT 03/30/19 09:00 04/29/19 08:59 Ascorbic Acid (Vitamin C) 500 mg DAILY GT 03/30/19 09:00 04/29/19 08:59 Aspirin (ASA) 81 mg DAILY GT 03/30/19 09:00 04/29/19 08:59 Clonidine HCl (Catapres Tab) 0.1 mg Q8H PRN GT SBP>160 03/29/19 16:45 04/28/19 16:44 Dextrose (Dextrose 50%) 25 ml Q30M PRN IV Hypoglycemia 03/29/19 17:15 04/28/19 17:14 Dextrose (Dextrose 50%) 50 ml Q30M PRN IV Hypoglycemia 03/29/19 17:15 04/28/19 17:14 Docusate Sodium (Colace) 100 mg DAILY GT 03/30/19 09:00 04/29/19 08:59 Doxazosin Mesylate (Cardura) 1 mg DAILY GT 03/30/19 09:00 04/29/19 08:59 Furosemide (Lasix) 20 mg DAILY GT 03/30/19 09:00 04/29/19 08:59 Insulin Aspart (NovoLOG) Q6HR SUBQ 03/29/19 18:00 04/28/19 17:59 03/30/19 05:42 Lactulose (Cephulac) 20 gm DAILY GT 03/30/19 09:00 04/29/19 08:59 Magnesium Hydroxide (Mom) 30 ml DAILYPRN PRN GT Constipation 03/29/19 16:45 04/28/19 16:44 Metoprolol Tartrate (Lopressor) 25 mg DAILY GT 03/30/19 09:00 04/29/19 08:59 Multivitamins (Multivitamins) 1 tab DAILY GT 03/30/19 09:00 04/29/19 08:59 Potassium Chloride (K-Dur) 20 meq DAILY GT 03/30/19 09:00 04/29/19 08:59 Sodium Phosphate (Fleet's Sodium Phosl Enema) 133 ml DAILYPRN PRN RECTAL Constipation 03/29/19 16:45 04/28/19 16:44 Tamsulosin HCl (Flomax) 0.4 mg DAILY ORAL 03/30/19 09:00 04/29/19 08:59 Valproic Acid (Depakene) 250 mg Q12HR GT 03/29/19 21:00 04/28/19 20:59 03/29/19 20:22 Warfarin Sodium (Coumadin per pharmacy) 1 ea DAILY PRN MISC PER RX PROTOCOL 03/29/19 17:00 04/28/19 16:59 Warfarin Sodium (Coumadin) 4 mg COUMADIN PO 03/30/19 17:00 03/30/19 18:00 Assessment/Plan Assessment/Plan: Hematology Oncology Consultation DOS: 03/30/19 Reason for Hospitalization: Edema bilaterally Referring physician: VIDYA FARIA Reason for Consultation: on coumadin, supertherapeutic inr HPI 78M referred well known to me from prior admission here for edema bilaterally. This was done at [facility] and reported to me by Dr. Faria. The patient cannot communicate meaningfully to me. Hx. limited due to clinical condition. ROS limited, pt non verbal at baseline. All information obtained from medical record. Pt seen in ED, NAD noted to have active severe bleeding at the GT site. History as noted below. Labs and imaging studies still pending. Medications Warfarin Sod* (WARFARIN SOD*) 4 Mg Tablet, 4 MG ORAL DAILY, TAB 0 Refills 07/24/18 Aspirin* (ASPIRIN*) 81 Mg Tab.chew, 81 MG ORAL DAILY, TAB 07/24/18 Amoxicillin* (AMOXICILLIN*) 250 Mg/5 Ml Susp.recon, 500 MG ORAL EVERY 8 HOURS, # 150 ML 04/04/18 Sulfamethoxazole/Trimethoprim Susp* (BACTRIM SUSP*) 473 Ml Oral.susp, 20 ML ORAL TWICE A DAY, ML 04/04/18 Zinc Sulfate (ZINC SULFATE*) 220 Mg Capsule, 220 MG GT DAILY, CAP 0 Refills 04/09/17 Tamsulosin Hcl (TAMSULOSIN HCL*) 0.4 Mg Cap.er.24h, 0.4 MG GT BEDTIME, CAP 04/09/17 Amino Acids/Protein Hydrolys (PRO-STAT LIQUID) 30 Ml Liquid.pkt, 30 ML GT DAILY , ML 04/09/17 Potassium Chloride (POTASSIUM CHLORIDE) 40 Meq/15 Ml Liquid, 20 MEQ PO TID, ML 04/09/17 Omeprazole (OMEPRAZOLE) 20 Mg Capsule.dr, 40 MG ORAL DAILY, CAP 04/09/17 Magnesium Hydroxide* (MILK OF MAGNESIA*) 400 Mg/5 Ml Oral.susp, 30 ML ORAL DAILY PRN for Constipation, ML 04/09/17 Metoprolol Tartrate* (METOPROLOL TARTRATE*) 25 Mg Tablet, 25 MG GT DAILY, TAB 04/09/17 Na Phos,M-B/Na Phos,Di-Ba* (FLEET ENEMA*) 133 Ml Enema, 133 ML RECTAL DAILY PRN for Constipation, ML 0 Refills 04/09/17 Bisacodyl (BISACODYL) 10 Mg Supp.rect, 10 MG RC DAILY PRN for Constipation, SUPP 04/09/17 Calcium Carbonate (CALCIUM) 500 Mg Tablet, 500 MG GT DAILY, TAB 04/09/17 Doxazosin Mesylate* (CARDURA*) 1 Mg Tablet, 1 MG GT DAILY, TAB 04/09/17 Warfarin Sod* (WARFARIN SOD*) 1 Mg Tablet, 2.5 MG GT DAILY, TAB 12/10/16 Atorvastatin Calcium* (ATORVASTATIN CALCIUM*) 20 Mg Tablet, 20 MG GT BEDTIME, TAB 11/26/16 Acetaminophen* (ACETAMINOPHEN 325MG TABLET*) 325 Mg Tablet, 650 MG GT Q4H PRN for Mild Pain/Temp > 100.5, TAB 6/19/15 Tramadol Hcl* (ULTRAM*) 50 Mg Tablet, 50 MG GT EVERY 6 HOURS, TAB 0 Refills 02/23/15 Vit C/Ascorbate Ca/Ascorb Sod (VITAMIN C 500 MG/15 ML LIQUID) 500 Mg/15 Ml Liquid, 500 MG GT DAILY, ML 02/23/15 Ondansetron* (ZOFRAN*) 4 Mg Tablet, 4 MG ORAL Q6H PRN for Nausea & Vomiting, TAB 02/23/15 Multivitamin with Minerals (Multivitamins with Minerals) 1 Each Tablet, 1 TAB GT DAILY, TAB 02/23/15 Furosemide* (LASIX*) 20 Mg Tablet, 20 MG GT DAILY, TAB 02/23/15 Docusate Sodium (Docusate Sodium) 100 Mg/10 Ml Udc, 100 MG GT DAILY, EA 02/23/15 Clonidine Hcl* (CATAPRES*) 0.1 Mg Tablet, 0.1 MG GT PRN for For High Blood Pressure, TAB 05/13/13 Amlodipine Besylate (Norvasc) 2.5 Mg Tab, 2.5 MG GT BID, TAB 05/13/13 Phosphorus (Phospha 250 Neutral Tablet) 250 Mg Tab, 250 MG GT BID, TAB 05/13/13 Valproic Acid (Depakene) 250 Mg Cap, 500 MG GT TID, CAP 05/13/13 Docusate Sodium* (COLACE*) 100 Mg Capsule, 100 MG GT TWICE A DAY, CAP 05/13/13 Pantoprazole* (PANTOPRAZOLE*) 40 Mg Tablet.dr, 40 MG GT DAILY 05/13/13 Tamsulosin HCl (Flomax) 0.4 Mg Cap, 0.4 MG GT DAILY, #30 TAB 0 Refills 05/13/13 Albuterol Sulfate* (ALBUTEROL SULFATE HHN*) 2.5 Mg/3 Ml Vial.neb, 2.5 MG HHN Q4HR PRN 03/30/13 Clonidine Hcl* (CATAPRES*) 0.1 Mg Tablet, 0.1 MG GT Q8HR PRN 03/30/13 Valproic Acid (Depakene) 250 Mg Cap, 500 MG GT TID 03/30/13 Med list reviewed/reconciled: Yes Allergies: Coded Allergies: MORPHINE (Unverified Allergy, Unknown, 03/31/18) Limited by: medical condition History Provided By: Medical Record PMH Narrative Past Medical History Deferred: No Family Available Hx Cardiac Problems: Yes Hx Hypertension: Yes Hx COPD: Yes Hx Diabetes: Yes Hx Cancer: No Hx Gastrointestinal Problems: Yes - GT placed prior to arrival. Hx Neurological Problems: Yes Hx Cerebrovascular Accident: Yes Hx Dementia: Yes Hx Encephalitis: Yes Hx Seizures: Yes Hx Aphasia: Yes Hx Dysphasia: Yes Hx Weakness: Yes Social History: Denies: smoking, alcohol use, drug use, other Review of Systems All Other Systems: limited Physical Exam General: no apparent distress Head: normocephalic EENT: normal ENT inspection Respiratory: no respiratory distress Gastrointestinal: gt - active bleed ++ peg tube Genitourinary: normal inspection Neurologic: alert Skin: normal inspection, normal color Labs: reviewed Imaging: noted Aassessment and Recs: # Coagulopathy with a history of being on coumadin --> recheck INR and monitor as needed, administer Vit K --> okay to continue coumadin --> Inr goal 2-3 --> PPI BID # Leukopenia wbc 4-5 --> hiv in the past neg --> hepatitis panel ordered --> us of the abdomen as needed # Anemia of chronic disease, chronic, multifactorial --> does not require anemia panel --> hg goal >7 --> no hemolysis ntoed # Limited mobility in bed --> stable # Feeding by G-tube --> as per gi # Edema bilaterally --> diuresis as needed, per cards Time of note does not always correspond to when patient seen. Appreciate consultation greatly! Abdifatah Ramirez MD Mar 30, 2019 09:07
[2019-03-30] MEDS: Doxazosin 1mg Tab GT SCH (10:09)
[2019-03-30] MEDS: Tamsulosin 0.4mg cap ORAL SCH (10:10)
[2019-03-30] MEDS: Ascorbic Acid 500mg tab GT SCH (10:10)
[2019-03-30] MEDS: Aspirin Baby 81mg GT SCH (10:10)
[2019-03-30] MEDS: Docusate 100mg/10ml Liq GT SCH (10:10)
[2019-03-30] MEDS: Valproic Acid 250mg/5ml Liquid GT SCH ×2 (10:10→20:58)
[2019-03-30] MEDS: Metoprolol 25mg tab GT SCH (10:10)
[2019-03-30] MEDS: Lactulose 20gm/30ml UDC GT SCH (10:10)
--- NOTE | 2019-03-30 11:30 | NUR ---
NURSE NOTES:WOUND CARE NOTES:Pt presented on admission with serous filled blister L heel (L)3.5cm x(W)3cm. Non-blanchable erythema with fluctuance periwound.R heel boggy but blanchable. Resolving pressure injury L sacrum. dry pink epithelial at base of wound with surrounding hyperpigmentation. Full thickness ulcer lateral R tibia.Base of wound viable,edges adherent to base of wound. Small amt sanguineous exudate noted.Historical scar periwound . No erythema or induration periwound. Recommendations: Apply Moisture Barrier Paste to sacrum. Cover with Optifoam drsg. Change very 3 days and prn. Apply Moisture Barrier Paste to scrotal, bilat groin and bilat ischial areas with each incontinence care. Cleanse wound lateral R tibia with saline. Apply Therahoney. Apply Cavilon Skin Barrier periwound. Cover with Optifoam drsg. Change every 3 days and prn. Apply Cavilon Skin Barrier to L heel Blister. Cover with Optifoam drsg. Change every 7 days and prn. Apply Cavilon Skin Barrier to R heel. Cover with Optifoam drsg. Change very 7 days and prn. APM/JUNE mattress overlay. Reposition at least every 2 hours or as tolerated. Off-load heels with pillow.
--- NOTE | 2019-03-30 11:58 | Diagnostic Imaging Report ---
Indication: Shortness of breath and chest pain Technique: One view of the chest Comparison: 03/31/2018 Findings: The heart is enlarged. There is equivocal mild interstitial congestive changes, not clearly evident previously. There is some atelectasis at the left lung base and possibly a small amount of pleural fluid. Impression: Questionable mild interstitial congestion Cardiomegaly Possible left basilar atelectasis and pleural fluid
[2019-03-30 12:00] VITALS: BP 129/76
--- NOTE | 2019-03-30 14:01 | Diagnostic Imaging Report ---
Indication: Bilateral upper extremity edema Technique: Grayscale and duplex images of the bilateral upper extremity veins Comparison: none Findings: Grayscale and duplex images demonstrate no evidence of intraluminal thrombus of the bilateral upper extremity veins. Normal phasic Doppler waveforms. No evidence of valvular insufficiency. Normal compressibility. Impression: Negative for upper extremity venous thrombosis
--- NOTE | 2019-03-30 15:10 | NUR ---
RD ASSESSMENT & RECOMMENDATIONS SEE CARE ACTIVITY FOR COMPLETE ASSESSMENT DAILY ESTIMATED NEEDS: Needs based on Diabetes, wound, bed bound 87kg abw 20-25 kcals/kg [id number] total kcals 1.25-1.5 g protein/kg 109-131 g total protein Fluid per MD, on lasix NUTRITION DIAGNOSIS: 1) Swallowing difficulty R/T dysphagia as evidenced by pt is Gtube dependent. 2) Increased pro needs r/t wound healing as evidenced by sacral and L heel wounds, pending wound care nurse eval, documented as unstageable and partial thickness respectively. (CURRENT TF: Glucerna 1.5 @60ml/hr x20 hrs) ENTERAL NUTRITION RECOMMENDATIONS: Glucerna 1.5 @ 65ml/hr x 20 hrs to provide 1300ml, 1950kcal, 107g prot, 987ml free water - Increase Glucerna 1.5 by 5ml @goal rate 65ml/hr x20 hrs. - Flush per MD/ HOB over 30 degrees ADDITIONAL RECOMMENDATIONS: * Re-calibrated bed scale as able for est needs -> Pt on added P200 mattress * A1C for eval of glycemic control * Wound healing: add Avery 1pkt BID, follow up w/ WC eval. * Monitor lytes closely w/ TF, replete as needed
--- NOTE | 2019-03-30 15:47 | Diagnostic Imaging Report ---
Indication: Renal function tests and liver function tests Technique: Rodriguez-scale and duplex images of the upper abdomen were obtained Comparison: Abdomen MRI dated 11/30/2016, abdomen pelvis CT 11/25/2016 Findings: Exam is technically difficult, per technologist, due to body habitus and bowel gas. Gallbladder demonstrates gallstones. No gallbladder wall thickening or pericholecystic fluid. Sonographic Ziegler's sign is negative. Common bile duct measures 6 mm in diameter. No intrahepatic biliary ductal dilatation. Liver demonstrates normal echogenicity, no focal abnormality. Portal vein and hepatic veins are patent. Pancreas is unremarkable. The spleen cannot be visualized. Left kidney measures 9.7 cm in length. Right kidney measures 9.2 cm length. Both kidneys demonstrate normal echogenicity. A small cyst is seen in the lower pole of the right kidney . No hydronephrosis . Abdominal aorta is obscured by bowel gas . Impression: Limited exam, as described, with nonvisualization of the spleen and abdominal aorta Cholelithiasis. Negative for dilated bile ducts Right lower pole renal cyst
[2019-03-30 15:59] LABS: APPEARANCE,URINE SLIGHTLY CLOUDY; BILIRUBIN, URINE NEGATIVE (NEGATIVE); GLUCOSE, URINE (UA) NEGATIVE (NEGATIVE); KETONES,URINE 1+ (NEGATIVE); LEUKOCYTE ESTERASE ,URINE 1+ (NEGATIVE); NITRITE,URINE POSITIVE (NEGATIVE); PH,URINE 8 (4.5-8.0); PROTEIN,URINE NEGATIVE (NEGATIVE); UROBILINOGEN,URINE 1 MG/DL (0.0-1.0)
[2019-03-30 16:00] VITALS: BP 134/78
[2019-03-30 16:13] LABS: COLOR,URINE YELLOW
[2019-03-30] MEDS ORDERED: Warfarin Sodium 4mg PO SCH (17:00)
--- NOTE | 2019-03-30 19:30 | NUR ---
HAND-OFF: Report given to Solomon/RN Patient is in stable condition. Endorsed plan of care.
[2019-03-30] MEDS ORDERED: CALCIUM CITRAT250 M1 GT (19:33)
--- NOTE | 2019-03-30 19:35 | NUR ---
NURSE NOTES: Pt received from ALICIA Kirby alert and oriented x0, nonverbal, opens eyes to light pain. IV site asymptomatic and patent on L upper arm 22g, saline lock. Bed in lowest position, call light and belongings within reach. Gtube feed tolerated - 5 ml gastric residual, suction at bedside. Aspiration precautions implemented - HOB elevated. On Glucerna 1.5 at 60 ml/hr. Bed alarm on.
[2019-03-30] MEDS ORDERED: DEPAKENE L250 MG/5 M GT (19:55)
[2019-03-30] MEDS ORDERED: ASCORBIC ACID500 MG GT (19:55)
[2019-03-30] MEDS ORDERED: LACTULOSE10 GM/153 GT (19:55)
[2019-03-30] MEDS ORDERED: UTI-STAT L3875 MG/31 GT (19:59)
[2019-03-30 20:00] VITALS: BP 122/79
[2019-03-30] MEDS ORDERED: GLUCERNA 1.5 C237 ML GT (20:01)
--- NOTE | 2019-03-30 22:11 | General Progress Note ---
Assessment/Plan Problem List: (1) Feeding by G-tube ICD Codes: Z93.1 - Feeding by G-tube SNOMED: 662485963 (2) Bilateral lower extremity edema (3) Functional quadriplegia ICD Codes: R53.2 - Functional quadriplegia SNOMED: 213322709833281 (4) Dementia ICD Codes: F03.90 - Unspecified dementia without behavioral disturbance SNOMED: 17688434 (5) Seizure disorder ICD Codes: G40.909 - Seizure disorder SNOMED: 576531946 (6) Peripheral edema ICD Codes: R60.9 - Edema, unspecified SNOMED: 994226686 (7) Fluid overload ICD Codes: E87.70 - Fluid overload, unspecified SNOMED: 22043775 Qualifiers: Qualified Codes: E87.70 - Fluid overload, unspecified Status: progressing Assessment/Plan: bilat edema chf needs diuresis moniter lyte abnormality afebrile Subjective ROS Limited/Unobtainable: Yes Allergies: Coded Allergies: MORPHINE (Unverified Allergy, Unknown, 03/31/18) Objective Last 24 Hour Vital Signs Date Time Temp Pulse Resp B/P (MAP) Pulse Ox O2 Delivery O2 Flow Rate FiO2 03/30/19 16:00 98.6 66 20 134/78 (96) 96 03/30/19 16:00 67 03/30/19 12:00 98.8 61 20 129/76 (93) 95 03/30/19 12:00 61 03/30/19 10:10 70 149/81 03/30/19 10:09 70 149/81 03/30/19 09:00 Room Air 03/30/19 08:00 72 03/30/19 08:00 97.8 70 20 149/81 (103) 95 03/30/19 04:00 66 03/30/19 04:00 98.8 69 18 133/78 (96) 98 03/30/19 00:00 64 03/30/19 00:00 98.5 70 18 129/78 (95) 96 Intake and Output 03/29/19 03/30/19 19:00 07:00 Output Total 1000 ml Balance -1000 ml Output Urine Total 1000 ml # Voids 1 Laboratory Tests 03/30/19 05:49: White Blood Count 4.5L, Red Blood Count 4.27L, Hemoglobin 14.0L, Hematocrit 42.0 , Mean Corpuscular Volume 98, Mean Corpuscular Hemoglobin 32.7H, Mean Corpuscular Hemoglobin Concent 33.2, Red Cell Distribution Width 13.3, Platelet Count 115L, Mean Platelet Volume 8.2, Neutrophils (%) (Auto) 42.1L, Lymphocytes (%) (Auto) 43.1, Monocytes (%) (Auto) 10.2H, Eosinophils (%) (Auto) 3.2H, Basophils (%) (Auto) 1.4, Prothrombin Time 15.8H, Prothromb Time International Ratio 1.5H, Sodium Level 141, Potassium Level 4.1, Chloride Level 106, Carbon Dioxide Level 31, Anion Gap 4L, Blood Urea Nitrogen 24H, Creatinine 0.8, Estimat Glomerular Filtration Rate , Glucose Level 160H, Calcium Level 8.9, Total Bilirubin 0.3, Aspartate Amino Transf (AST/SGOT) 19, Alanine Aminotransferase (ALT/SGPT) 13, Alkaline Phosphatase 83, Total Protein 7.3, Albumin 2.3L, Globulin 5.0, Albumin/Globulin Ratio 0.5L, Hepatitis A IgM Antibody [Pending], Hepatitis B Surface Antigen [Pending], Hepatitis B Core IgM Antibody [Pending], Hepatitis C Antibody [Pending] 03/30/19 13:50: Urine Color Yellow, Urine Appearance Slightly cloudy, Urine pH 8, Urine Specific [place] 1.010, Urine Protein Negative, Urine Glucose (UA) Negative, Urine Ketones 1+H, Urine Blood Negative, Urine Nitrite PositiveH, Urine Bilirubin Negative, Urine Urobilinogen 1H, Urine Leukocyte Esterase 1+H, Urine RBC 0, Urine WBC 0-2, Urine Squamous Epithelial Cells None, Urine Triple Phosphate Crystals Occasional, Urine Bacteria ManyH Height (Feet): 6 Height (Inches): 0.00 Weight (Pounds): 255 Cardiovascular: normal peripheral pulses, regularly irregular Respiratory/Chest: no accessory muscle use Abdomen: soft Aliza Faria MD Mar 30, 2019 22:11
[2019-03-31] VITALS: BP 115/67
[2019-03-31] MEDS: NovoLOG Insulin Flexpen SUBQ SCH ×4 (00:21→17:35)
[2019-03-31 04:14] VITALS: BP 135/89
[2019-03-31 07:02] LABS: INR 1.8 (0.9-1.1)
--- NOTE | 2019-03-31 07:25 | NUR ---
NURSE NOTES: Received report from Solomon/RN, Patient asleep, Lying semi-diez, no acute distress/SOB noted. Non-Verbal, Unable to make needs known. Checked IV, patent and intact, no bleeding or infiltration noted. Bed in lowest position and locked, Call light within reach. Will continue plan of care.
--- NOTE | 2019-03-31 07:48 | NUR ---
HAND-OFF: Report given to ALICIA Kirby. No s/s of acute distress noted.
[2019-03-31 08:00] VITALS: BP 150/84
--- NOTE | 2019-03-31 08:03 | Hematology/Onc Progress Note ---
Assessment/Plan Assessment/Plan Aassessment and Recs: # Coagulopathy with a history of being on coumadin --> recheck INR and monitor as needed, administer Vit K --> okay to continue coumadin --> Inr goal 2-3 --> PPI BID --> as per cards # Leukopenia wbc 4-5, likely due to hepatitis C, came back +++ --> hiv in the past neg --> us of the abdomen does not show e/o cirrhosis or HSM # Anemia of chronic disease, chronic, multifactorial --> does not require anemia panel --> hg goal >7 --> no hemolysis ntoed # Limited mobility in bed --> stable # Feeding by G-tube --> as per gi # Edema bilaterally --> diuresis as needed, per cards # Functional quadriplegia Time of note does not always correspond to when patient seen. Appreciate consultation greatly! Subjective Constitutional: Denies: no symptoms, chills, fever, malaise, weakness, other HEENT: Denies: no symptoms, eye pain, blurred vision, tearing, double vision, ear pain, ear discharge, nose pain, nose congestion, throat pain, throat swelling, mouth pain, mouth swelling, other Cardiovascular: Denies: no symptoms, chest pain, edema, irregular heart rate, lightheadedness, palpitations, syncope, other Respiratory: Denies: no symptoms, cough, shortness of breath, SOB with excertion, SOB at rest, sputum, wheezing, other Gastrointestinal/Abdominal: Denies: no symptoms, abdomen distended, abdominal pain, black stools, tarry stools, blood in stool, constipated, diarrhea, difficulty swallowing, nausea, poor appetite, poor fluid intake, rectal bleeding , vomiting, other Genitourinary: Denies: no symptoms, burning, discharge, frequency, flank pain, hematuria, incontinence, pain, urgency, other Neurologic/Psychiatric: Denies: no symptoms, anxiety, depressed, emotional problems, headache, numbness, paresthesia, pre-existing deficit, seizure, tingling, tremors, weakness, other Endocrine: Denies: no symptoms, excessive sweating, flushing, intolerance to cold, intolerance to heat, increased hunger, increased thirst, increased urine, unexplained weight gain, unexplained weight loss, other Hematologic/Lymphatic: Denies: no symptoms, anemia, easy bleeding, easy bruising, adenopathy, other Allergies: Coded Allergies: MORPHINE (Unverified Allergy, Unknown, 03/31/18) Subjective 03/31: no events, hepatitis C, labs reviewed, still overloaded somewhat Objective Objective Current Medications Medications (Trade) Dose Ordered Sig/Jamaal Route PRN Reason Start Time Stop Time Status Last Admin Dose Admin Acetaminophen (Tylenol) 650 mg Q4H PRN GT Mild Pain/Temp > 100.5 03/29/19 16:45 04/28/19 16:44 Amlodipine Besylate (Norvasc) 2.5 mg DAILY GT 03/30/19 09:00 04/29/19 08:59 03/30/19 10:09 Ascorbic Acid (Vitamin C) 500 mg DAILY GT 03/30/19 09:00 04/29/19 08:59 03/30/19 10:10 Aspirin (ASA) 81 mg DAILY GT 03/30/19 09:00 04/29/19 08:59 03/30/19 10:10 Clonidine HCl (Catapres Tab) 0.1 mg Q8H PRN GT SBP>160 03/29/19 16:45 04/28/19 16:44 Dextrose (Dextrose 50%) 25 ml Q30M PRN IV Hypoglycemia 03/29/19 17:15 04/28/19 17:14 Dextrose (Dextrose 50%) 50 ml Q30M PRN IV Hypoglycemia 03/29/19 17:15 04/28/19 17:14 Docusate Sodium (Colace) 100 mg DAILY GT 03/30/19 09:00 04/29/19 08:59 03/30/19 10:10 Doxazosin Mesylate (Cardura) 1 mg DAILY GT 03/30/19 09:00 04/29/19 08:59 03/30/19 10:09 Furosemide (Lasix) 20 mg DAILY GT 03/30/19 09:00 04/29/19 08:59 03/30/19 10:09 Insulin Aspart (NovoLOG) Q6HR SUBQ 03/29/19 18:00 04/28/19 17:59 03/31/19 05:47 Lactulose (Cephulac) 20 gm DAILY GT 03/30/19 09:00 04/29/19 08:59 03/30/19 10:10 Magnesium Hydroxide (Mom) 30 ml DAILYPRN PRN GT Constipation 03/29/19 16:45 04/28/19 16:44 Metoprolol Tartrate (Lopressor) 25 mg DAILY GT 03/30/19 09:00 04/29/19 08:59 03/30/19 10:10 Multivitamins (Multivitamins) 1 tab DAILY GT 03/30/19 09:00 04/29/19 08:59 03/30/19 10:09 Potassium Chloride (K-Dur) 20 meq DAILY GT 03/30/19 09:00 04/29/19 08:59 03/30/19 10:09 Sodium Phosphate (Fleet's Sodium Phosl Enema) 133 ml DAILYPRN PRN RECTAL Constipation 03/29/19 16:45 04/28/19 16:44 Tamsulosin HCl (Flomax) 0.4 mg DAILY ORAL 03/30/19 09:00 04/29/19 08:59 03/30/19 10:10 Valproic Acid (Depakene) 250 mg Q12HR GT 03/29/19 21:00 04/28/19 20:59 03/30/19 20:58 Warfarin Sodium (Coumadin per pharmacy) 1 ea DAILY PRN MISC PER RX PROTOCOL 03/29/19 17:00 04/28/19 16:59 Warfarin Sodium (Coumadin) 4 mg ONCE PO 03/31/19 17:00 03/31/19 19:00 Last 24 Hour Vital Signs Date Time Temp Pulse Resp B/P (MAP) Pulse Ox O2 Delivery O2 Flow Rate FiO2 03/31/19 04:14 98.1 78 20 135/89 (104) 03/31/19 04:00 65 03/31/19 00:00 68 03/31/19 00:00 97.7 66 20 115/67 (83) 96 03/30/19 21:00 Room Air 03/30/19 20:00 97.7 66 20 122/79 (93) 95 03/30/19 20:00 64 03/30/19 16:00 98.6 66 20 134/78 (96) 96 03/30/19 16:00 67 03/30/19 12:00 98.8 61 20 129/76 (93) 95 03/30/19 12:00 61 03/30/19 10:10 70 149/81 03/30/19 10:09 70 149/81 03/30/19 09:00 Room Air 03/30/19 08:00 72 03/30/19 08:00 97.8 70 20 149/81 (103) 95 03/30/19 04:00 66 03/30/19 04:00 98.8 69 18 133/78 (96) 98 03/30/19 00:00 64 03/30/19 00:00 98.5 70 18 129/78 (95) 96 03/29/19 21:00 Room Air 03/29/19 20:00 76 03/29/19 20:00 98.1 79 16 121/76 (91) 94 03/29/19 17:01 Room Air 03/29/19 16:32 75 03/29/19 15:30 98.1 60 16 106/65 (79) 96 03/29/19 15:26 98.1 59 14 102/68 98 Room Air 03/29/19 13:22 98.1 59 14 102/68 98 Room Air 03/29/19 12:42 64 14 Room Air 03/29/19 12:24 98.1 64 14 131/78 (95) 94 Room Air Intake and Output 03/30/19 03/31/19 19:00 07:00 Output Total 350 ml Balance -350 ml Output Urine Total 350 ml # Voids 2 4 # Bowel Movements 1 Labs Test 03/29/19 13:50 03/30/19 05:49 03/30/19 13:50 03/31/19 05:54 White Blood Count 5.9 K/UL (4.8-10.8) 4.5 K/UL (4.8-10.8) Red Blood Count 4.33 M/UL (4.70-6.10) 4.27 M/UL (4.70-6.10) Hemoglobin 13.8 G/DL (14.2-18.0) 14.0 G/DL (14.2-18.0) Hematocrit 42.9 % (42.0-52.0) 42.0 % (42.0-52.0) Mean Corpuscular Volume 99 FL (80-99) 98 FL (80-99) Mean Corpuscular Hemoglobin 31.9 PG (27.0-31.0) 32.7 PG (27.0-31.0) Mean Corpuscular Hemoglobin Concent 32.2 G/DL (32.0-36.0) 33.2 G/DL (32.0-36.0) Red Cell Distribution Width 13.4 % (11.6-14.8) 13.3 % (11.6-14.8) Platelet Count 111 K/UL (150-450) 115 K/UL (150-450) Mean Platelet Volume 8.2 FL (6.5-10.1) 8.2 FL (6.5-10.1) Neutrophils (%) (Auto) 37.9 % (45.0-75.0) 42.1 % (45.0-75.0) Lymphocytes (%) (Auto) 47.7 % (20.0-45.0) 43.1 % (20.0-45.0) Monocytes (%) (Auto) 9.5 % (1.0-10.0) 10.2 % (1.0-10.0) Eosinophils (%) (Auto) 3.3 % (0.0-3.0) 3.2 % (0.0-3.0) Basophils (%) (Auto) 1.6 % (0.0-2.0) 1.4 % (0.0-2.0) Prothrombin Time 16.1 SEC (9.30-11.50) 15.8 SEC (9.30-11.50) 18.7 SEC (9.30-11.50) Prothromb Time International Ratio 1.5 (0.9-1.1) 1.5 (0.9-1.1) 1.8 (0.9-1.1) Activated Partial Thromboplast Time 33 SEC (23-33) Sodium Level 140 MMOL/L (136-145) 141 MMOL/L (136-145) Potassium Level 3.9 MMOL/L (3.5-5.1) 4.1 MMOL/L (3.5-5.1) Chloride Level 104 MMOL/L (98-107) 106 MMOL/L (98-107) Carbon Dioxide Level 31 MMOL/L (21-32) 31 MMOL/L (21-32) Anion Gap 5 mmol/L (5-15) 4 mmol/L (5-15) Blood Urea Nitrogen 23 mg/dL (7-18) 24 mg/dL (7-18) Creatinine 0.8 MG/DL (0.55-1.30) 0.8 MG/DL (0.55-1.30) Estimat Glomerular Filtration Rate mL/min (>60) mL/min (>60) Glucose Level 127 MG/DL (74-106) 160 MG/DL (74-106) Calcium Level 8.7 MG/DL (8.5-10.1) 8.9 MG/DL (8.5-10.1) Total Bilirubin 0.3 MG/DL (0.2-1.0) 0.3 MG/DL (0.2-1.0) Aspartate Amino Transf (AST/SGOT) 19 U/L (15-37) 19 U/L (15-37) Alanine Aminotransferase (ALT/SGPT) 16 U/L (12-78) 13 U/L (12-78) Alkaline Phosphatase 82 U/L (46-116) 83 U/L (46-116) Total Creatine Kinase 173 U/L (26-308) Creatine Kinase MB 1.0 NG/ML (0.0-3.6) Creatine Kinase MB Relative Index 0.5 Troponin I 0.008 ng/mL (0.000-0.056) Pro-B-Type Natriuretic Peptide 215 pg/mL (0-125) Total Protein 7.1 G/DL (6.4-8.2) 7.3 G/DL (6.4-8.2) Albumin 2.5 G/DL (3.4-5.0) 2.3 G/DL (3.4-5.0) Globulin 4.6 g/dL 5.0 g/dL Albumin/Globulin Ratio 0.5 (1.0-2.7) 0.5 (1.0-2.7) Hepatitis A IgM Antibody Negative (Negative) Hepatitis B Surface Antigen Negative (Negative) Hepatitis B Core IgM Antibody Negative (Negative) Hepatitis C Antibody 1.9 s/co ratio (0.0-0.9) Urine Color Yellow Urine Appearance Slightly cloudy Urine pH 8 (4.5-8.0) Urine Specific [place] 1.010 (1.005-1.035) Urine Protein Negative (NEGATIVE) Urine Glucose (UA) Negative (NEGATIVE) Urine Ketones 1+ (NEGATIVE) Urine Blood Negative (NEGATIVE) Urine Nitrite Positive (NEGATIVE) Urine Bilirubin Negative (NEGATIVE) Urine Urobilinogen 1 MG/DL (0.0-1.0) Urine Leukocyte Esterase 1+ (NEGATIVE) Urine RBC 0 /HPF (0 - 0) Urine WBC 0-2 /HPF (0 - 0) Urine Squamous Epithelial Cells None /LPF (NONE/OCC) Urine Triple Phosphate Crystals Occasional /LPF (NONE) Urine Bacteria Many /HPF (NONE) Height (Feet): 6 Height (Inches): 0.00 Weight (Pounds): 255 Objective General: no apparent distress Head: normocephalic EENT: normal ENT inspection Respiratory: no respiratory distress Gastrointestinal: gt - active bleed ++ peg tube Genitourinary: normal inspection Neurologic: alert Skin: normal inspection, normal color Abdifatah Rmairez MD Mar 31, 2019 08:03
[2019-03-31] MEDS: Ascorbic Acid 500mg tab GT SCH (08:28)
[2019-03-31] MEDS: Aspirin Baby 81mg GT SCH (08:29)
[2019-03-31] MEDS: Metoprolol 25mg tab GT SCH (08:29)
[2019-03-31] MEDS: Tamsulosin 0.4mg cap ORAL SCH (08:30)
[2019-03-31] MEDS: Docusate 100mg/10ml Liq GT SCH (08:30)
[2019-03-31] MEDS: Doxazosin 1mg Tab GT SCH (08:30)
[2019-03-31] MEDS: Valproic Acid 250mg/5ml Liquid GT SCH ×2 (08:30→21:04)
[2019-03-31] MEDS: Lactulose 20gm/30ml UDC GT SCH (08:30)
[2019-03-31 12:00] VITALS: BP 132/72
[2019-03-31 16:00] VITALS: BP 138/93
[2019-03-31] MEDS ORDERED: Warfarin Sodium 4mg PO SCH (17:00)
--- NOTE | 2019-03-31 19:39 | NUR ---
HAND-OFF: Report given to Solomon/RN, Endorsed plan of care.
--- NOTE | 2019-03-31 19:40 | NUR ---
NURSE NOTES: Pt received from ALICIA Kirby alert and oriented x0, nonverbal with no acute s/s of distress noted. IV site asymptomatic and patent on L upper arm 22 g, saline lock. Gtube feed tolerating - no gastric residual noted, HOB elevated and suction at bedside with aspiration precautions implemented. Bed in lowest position, bed alarm on. Call light and belongings wihtin reach.
[2019-03-31 20:00] VITALS: BP 157/89
--- NOTE | 2019-03-31 20:56 | Cardiology Progress Note ---
Assessment/Plan Assessment/Plan The patient is seen and examined, full consult note will be dictated. Objective Last 24 Hour Vital Signs Date Time Temp Pulse Resp B/P (MAP) Pulse Ox O2 Delivery O2 Flow Rate FiO2 03/31/19 16:00 97.3 61 20 138/93 (108) 99 03/31/19 16:00 60 03/31/19 12:00 58 03/31/19 12:00 98.1 65 20 132/72 (92) 97 03/31/19 09:00 Room Air 03/31/19 08:29 64 150/84 03/31/19 08:29 64 150/84 03/31/19 08:00 61 03/31/19 08:00 97.4 64 20 150/84 (106) 98 03/31/19 04:14 98.1 78 20 135/89 (104) 03/31/19 04:00 65 03/31/19 00:00 68 03/31/19 00:00 97.7 66 20 115/67 (83) 96 03/30/19 21:00 Room Air Intake and Output 03/30/19 03/31/19 18:59 06:59 Output Total 350 ml Balance -350 ml Output Urine Total 350 ml # Voids 2 4 # Bowel Movements 1 Laboratory Tests Test 03/31/19 05:54 Prothrombin Time 18.7 SEC (9.30-11.50) H Prothromb Time International Ratio 1.8 (0.9-1.1) H Microbiology Date/Time Source Procedure Growth Status 03/30/19 13:50 Urine,Clean Catch Urine Culture - Preliminary Resulted Ha Laurent MD Mar 31, 2019 20:56
[2019-03-31] MEDS: Enalapril 5mg tab ORAL SCH (22:04)
--- NOTE | 2019-03-31 22:21 | General Progress Note ---
Assessment/Plan Problem List: (1) Feeding by G-tube ICD Codes: Z93.1 - Feeding by G-tube SNOMED: 671587184 (2) Bilateral lower extremity edema (3) Functional quadriplegia ICD Codes: R53.2 - Functional quadriplegia SNOMED: 637821407283533 (4) Dementia ICD Codes: F03.90 - Unspecified dementia without behavioral disturbance SNOMED: 10046385 (5) Seizure disorder ICD Codes: G40.909 - Seizure disorder SNOMED: 314125246 (6) Peripheral edema ICD Codes: R60.9 - Edema, unspecified SNOMED: 701933870 (7) Fluid overload ICD Codes: E87.70 - Fluid overload, unspecified SNOMED: 63806286 Qualifiers: Qualified Codes: E87.70 - Fluid overload, unspecified Status: progressing Assessment/Plan: bilat edema chf needs diuresis moniter lyte abnormality on coumadin check inr no bleeding Subjective ROS Limited/Unobtainable: Yes Allergies: Coded Allergies: MORPHINE (Unverified Allergy, Unknown, 03/31/18) Objective Last 24 Hour Vital Signs Date Time Temp Pulse Resp B/P (MAP) Pulse Ox O2 Delivery O2 Flow Rate FiO2 03/31/19 22:04 157/89 03/31/19 22:03 71 157/89 03/31/19 16:00 97.3 61 20 138/93 (108) 99 03/31/19 16:00 60 03/31/19 12:00 58 03/31/19 12:00 98.1 65 20 132/72 (92) 97 03/31/19 09:00 Room Air 03/31/19 08:29 64 150/84 03/31/19 08:29 64 150/84 03/31/19 08:00 61 03/31/19 08:00 97.4 64 20 150/84 (106) 98 03/31/19 04:14 98.1 78 20 135/89 (104) 03/31/19 04:00 65 03/31/19 00:00 68 03/31/19 00:00 97.7 66 20 115/67 (83) 96 Intake and Output 03/30/19 03/31/19 18:59 06:59 Output Total 350 ml Balance -350 ml Output Urine Total 350 ml # Voids 2 4 # Bowel Movements 1 Laboratory Tests 03/31/19 05:54: Prothrombin Time 18.7H, Prothromb Time International Ratio 1.8H Height (Feet): 6 Height (Inches): 0.00 Weight (Pounds): 255 General Appearance: confused Respiratory/Chest: lungs clear Abdomen: soft Aliza Faria MD Mar 31, 2019 22:21
[2019-04-01] VITALS: BP 126/72
[2019-04-01] MEDS: NovoLOG Insulin Flexpen SUBQ SCH ×4 (00:31→17:25)
[2019-04-01 04:00] VITALS: BP 130/71
[2019-04-01 07:47] LABS: INR 2.1 (0.9-1.1)
--- NOTE | 2019-04-01 07:47 | NUR ---
HAND-OFF: Report given to ALICIA Lim and ALICIA Carranza. No acute s/s of distress noted. Plan of care endorsed.
--- NOTE | 2019-04-01 07:49 | NUR ---
NURSE NOTES: Received patient from Jori Carbajal. Patient observed in bed awake in comfortable position. Will monitor.
--- NOTE | 2019-04-01 07:52 | NUR ---
CASE MANAGEMENT:REVIEW 04/01/19 SI: FLUID OVERLOAD. BLE EDEMA. FUNCTIONAL QUAD 97.6 70 18 130/71 96% ON RA IS: ALDACTONE GT QD COREG GT Q12 VASOTEC GT Q12 ASA GT QD CARDURA GT QD LASIX GT QD FLOMAX GT QD LACTULOSE GT QD : TELEMETRY STATUS DCP: FROM [facility]
[2019-04-01 08:00] VITALS: BP 122/66
[2019-04-01] MEDS ORDERED: Spironolactone 25mg tab ORAL SCH (09:00)
[2019-04-01] MEDS: Valproic Acid 250mg/5ml Liquid GT SCH ×2 (09:11→21:32)
[2019-04-01] MEDS: Lactulose 20gm/30ml UDC GT SCH (09:11)
[2019-04-01] MEDS: Ascorbic Acid 500mg tab GT SCH (09:11)
[2019-04-01] MEDS: Docusate 100mg/10ml Liq GT SCH (09:11)
[2019-04-01] MEDS: Aspirin Baby 81mg GT SCH (09:11)
[2019-04-01] MEDS: Tamsulosin 0.4mg cap ORAL SCH (09:12)
[2019-04-01] MEDS: Enalapril 5mg tab ORAL SCH (09:12)
[2019-04-01] MEDS: Doxazosin 1mg Tab GT SCH (09:27)
[2019-04-01 12:00] VITALS: BP 117/76
--- NOTE | 2019-04-01 12:19 | Hematology/Onc Progress Note ---
Assessment/Plan Assessment/Plan Aassessment and Recs: # Coagulopathy with a history of being on coumadin --> recheck INR and monitor as needed, administer Vit K --> okay to continue coumadin --> Inr goal 2-3 --> PPI BID --> as per cards # Leukopenia wbc 4-5, likely due to hepatitis C, came back +++ --> hiv in the past neg --> us of the abdomen does not show e/o cirrhosis or HSM # Anemia of chronic disease, chronic, multifactorial, prior ferritin is <100 --> does not require anemia panel --> hg goal >7 --> no hemolysis noted # Limited mobility in bed --> stable # Feeding by G-tube --> as per gi # Edema bilaterally --> diuresis as needed, per cards # Functional quadriplegia Time of note does not always correspond to when patient seen. Appreciate consultation greatly! Subjective Constitutional: Denies: no symptoms, chills, fever, malaise, weakness, other HEENT: Denies: no symptoms, eye pain, blurred vision, tearing, double vision, ear pain, ear discharge, nose pain, nose congestion, throat pain, throat swelling, mouth pain, mouth swelling, other Cardiovascular: Denies: no symptoms, chest pain, edema, irregular heart rate, lightheadedness, palpitations, syncope, other Respiratory: Denies: no symptoms, cough, shortness of breath, SOB with excertion, SOB at rest, sputum, wheezing, other Gastrointestinal/Abdominal: Denies: no symptoms, abdomen distended, abdominal pain, black stools, tarry stools, blood in stool, constipated, diarrhea, difficulty swallowing, nausea, poor appetite, poor fluid intake, rectal bleeding , vomiting, other Genitourinary: Denies: no symptoms, burning, discharge, frequency, flank pain, hematuria, incontinence, pain, urgency, other Neurologic/Psychiatric: Denies: no symptoms, anxiety, depressed, emotional problems, headache, numbness, paresthesia, pre-existing deficit, seizure, tingling, tremors, weakness, other Hematologic/Lymphatic: Denies: no symptoms, anemia, easy bleeding, easy bruising, adenopathy, other Allergies: Coded Allergies: MORPHINE (Unverified Allergy, Unknown, 03/31/18) Subjective 03/31: no events, hepatitis C, labs reviewed, still overloaded somewhat 04/01: no events, no f/c, no changes, labs ordered with cbc and ca19.9 Objective Objective Current Medications Medications (Trade) Dose Ordered Sig/Jamaal Route PRN Reason Start Time Stop Time Status Last Admin Dose Admin Acetaminophen (Tylenol) 650 mg Q4H PRN GT Mild Pain/Temp > 100.5 03/29/19 16:45 04/28/19 16:44 Ascorbic Acid (Vitamin C) 500 mg DAILY GT 03/30/19 09:00 04/29/19 08:59 04/01/19 09:11 Aspirin (ASA) 81 mg DAILY GT 03/30/19 09:00 04/29/19 08:59 04/01/19 09:11 Carvedilol (Coreg) 3.125 mg EVERY 12 HOURS ORAL 03/31/19 21:15 04/30/19 21:14 04/01/19 09:12 Clonidine HCl (Catapres Tab) 0.1 mg Q8H PRN GT SBP>160 03/29/19 16:45 04/28/19 16:44 Dextrose (Dextrose 50%) 25 ml Q30M PRN IV Hypoglycemia 03/29/19 17:15 04/28/19 17:14 Dextrose (Dextrose 50%) 50 ml Q30M PRN IV Hypoglycemia 03/29/19 17:15 04/28/19 17:14 Docusate Sodium (Colace) 100 mg DAILY GT 03/30/19 09:00 04/29/19 08:59 04/01/19 09:11 Doxazosin Mesylate (Cardura) 1 mg DAILY GT 03/30/19 09:00 04/29/19 08:59 04/01/19 09:27 Enalapril Maleate (Vasotec) 5 mg EVERY 12 HOURS ORAL 03/31/19 21:15 04/30/19 21:14 04/01/19 09:12 Furosemide (Lasix) 20 mg DAILY GT 03/30/19 09:00 04/29/19 08:59 04/01/19 09:12 Insulin Aspart (NovoLOG) Q6HR SUBQ 03/29/19 18:00 04/28/19 17:59 04/01/19 12:08 Lactulose (Cephulac) 20 gm DAILY GT 03/30/19 09:00 04/29/19 08:59 04/01/19 09:11 Magnesium Hydroxide (Mom) 30 ml DAILYPRN PRN GT Constipation 03/29/19 16:45 04/28/19 16:44 Multivitamins (Multivitamins) 1 tab DAILY GT 03/30/19 09:00 04/29/19 08:59 04/01/19 09:12 Potassium Chloride (K-Dur) 20 meq DAILY GT 03/30/19 09:00 04/29/19 08:59 04/01/19 09:12 Sodium Phosphate (Fleet's Sodium Phosl Enema) 133 ml DAILYPRN PRN RECTAL Constipation 03/29/19 16:45 04/28/19 16:44 Spironolactone (Aldactone) 25 mg DAILY ORAL 04/01/19 09:00 05/01/19 08:59 04/01/19 09:11 Tamsulosin HCl (Flomax) 0.4 mg DAILY ORAL 03/30/19 09:00 04/29/19 08:59 04/01/19 09:12 Valproic Acid (Depakene) 250 mg Q12HR GT 03/29/19 21:00 04/28/19 20:59 04/01/19 09:11 Warfarin Sodium (Coumadin per pharmacy) 1 ea DAILY PRN MISC PER RX PROTOCOL 03/29/19 17:00 04/28/19 16:59 Warfarin Sodium (Coumadin) 4 mg ONCE GT 04/01/19 17:00 04/01/19 19:00 Last 24 Hour Vital Signs Date Time Temp Pulse Resp B/P (MAP) Pulse Ox O2 Delivery O2 Flow Rate FiO2 04/01/19 12:00 98.2 55 18 117/76 (90) 98 04/01/19 09:12 122/66 04/01/19 09:12 63 122/66 04/01/19 09:00 Room Air 04/01/19 08:00 61 04/01/19 08:00 98.2 63 20 122/66 (84) 96 04/01/19 04:00 97.6 70 18 130/71 (90) 96 04/01/19 04:00 61 04/01/19 00:00 98.2 60 17 126/72 (90) 96 7/17/19 00:00 60 03/31/19 22:04 157/89 03/31/19 22:03 71 157/89 03/31/19 21:00 Room Air 03/31/19 20:00 97.9 71 17 157/89 (111) 97 03/31/19 20:00 65 03/31/19 16:00 97.3 61 20 138/93 (108) 99 03/31/19 16:00 60 03/31/19 12:00 58 03/31/19 12:00 98.1 65 20 132/72 (92) 97 03/31/19 09:00 Room Air 03/31/19 08:29 64 150/84 03/31/19 08:29 64 150/84 03/31/19 08:00 61 03/31/19 08:00 97.4 64 20 150/84 (106) 98 03/31/19 04:14 98.1 78 20 135/89 (104) 03/31/19 04:00 65 03/31/19 00:00 68 03/31/19 00:00 97.7 66 20 115/67 (83) 96 03/30/19 21:00 Room Air 03/30/19 20:00 97.7 66 20 122/79 (93) 95 03/30/19 20:00 64 03/30/19 16:00 98.6 66 20 134/78 (96) 96 03/30/19 16:00 67 Intake and Output 03/31/19 04/01/19 19:00 07:00 # Voids 1 2 # Bowel Movements 1 Labs Test 03/29/19 13:50 03/30/19 05:49 03/30/19 13:50 03/31/19 05:54 White Blood Count 5.9 K/UL (4.8-10.8) 4.5 K/UL (4.8-10.8) Red Blood Count 4.33 M/UL (4.70-6.10) 4.27 M/UL (4.70-6.10) Hemoglobin 13.8 G/DL (14.2-18.0) 14.0 G/DL (14.2-18.0) Hematocrit 42.9 % (42.0-52.0) 42.0 % (42.0-52.0) Mean Corpuscular Volume 99 FL (80-99) 98 FL (80-99) Mean Corpuscular Hemoglobin 31.9 PG (27.0-31.0) 32.7 PG (27.0-31.0) Mean Corpuscular Hemoglobin Concent 32.2 G/DL (32.0-36.0) 33.2 G/DL (32.0-36.0) Red Cell Distribution Width 13.4 % (11.6-14.8) 13.3 % (11.6-14.8) Platelet Count 111 K/UL (150-450) 115 K/UL (150-450) Mean Platelet Volume 8.2 FL (6.5-10.1) 8.2 FL (6.5-10.1) Neutrophils (%) (Auto) 37.9 % (45.0-75.0) 42.1 % (45.0-75.0) Lymphocytes (%) (Auto) 47.7 % (20.0-45.0) 43.1 % (20.0-45.0) Monocytes (%) (Auto) 9.5 % (1.0-10.0) 10.2 % (1.0-10.0) Eosinophils (%) (Auto) 3.3 % (0.0-3.0) 3.2 % (0.0-3.0) Basophils (%) (Auto) 1.6 % (0.0-2.0) 1.4 % (0.0-2.0) Prothrombin Time 16.1 SEC (9.30-11.50) 15.8 SEC (9.30-11.50) 18.7 SEC (9.30-11.50) Prothromb Time International Ratio 1.5 (0.9-1.1) 1.5 (0.9-1.1) 1.8 (0.9-1.1) Activated Partial Thromboplast Time 33 SEC (23-33) Sodium Level 140 MMOL/L (136-145) 141 MMOL/L (136-145) Potassium Level 3.9 MMOL/L (3.5-5.1) 4.1 MMOL/L (3.5-5.1) Chloride Level 104 MMOL/L (98-107) 106 MMOL/L (98-107) Carbon Dioxide Level 31 MMOL/L (21-32) 31 MMOL/L (21-32) Anion Gap 5 mmol/L (5-15) 4 mmol/L (5-15) Blood Urea Nitrogen 23 mg/dL (7-18) 24 mg/dL (7-18) Creatinine 0.8 MG/DL (0.55-1.30) 0.8 MG/DL (0.55-1.30) Estimat Glomerular Filtration Rate mL/min (>60) mL/min (>60) Glucose Level 127 MG/DL (74-106) 160 MG/DL (74-106) Calcium Level 8.7 MG/DL (8.5-10.1) 8.9 MG/DL (8.5-10.1) Total Bilirubin 0.3 MG/DL (0.2-1.0) 0.3 MG/DL (0.2-1.0) Aspartate Amino Transf (AST/SGOT) 19 U/L (15-37) 19 U/L (15-37) Alanine Aminotransferase (ALT/SGPT) 16 U/L (12-78) 13 U/L (12-78) Alkaline Phosphatase 82 U/L (46-116) 83 U/L (46-116) Total Creatine Kinase 173 U/L (26-308) Creatine Kinase MB 1.0 NG/ML (0.0-3.6) Creatine Kinase MB Relative Index 0.5 Troponin I 0.008 ng/mL (0.000-0.056) Pro-B-Type Natriuretic Peptide 215 pg/mL (0-125) Total Protein 7.1 G/DL (6.4-8.2) 7.3 G/DL (6.4-8.2) Albumin 2.5 G/DL (3.4-5.0) 2.3 G/DL (3.4-5.0) Globulin 4.6 g/dL 5.0 g/dL Albumin/Globulin Ratio 0.5 (1.0-2.7) 0.5 (1.0-2.7) Hepatitis A IgM Antibody Negative (Negative) Hepatitis B Surface Antigen Negative (Negative) Hepatitis B Core IgM Antibody Negative (Negative) Hepatitis C Antibody 1.9 s/co ratio (0.0-0.9) Urine Color Yellow Urine Appearance Slightly cloudy Urine pH 8 (4.5-8.0) Urine Specific [place] 1.010 (1.005-1.035) Urine Protein Negative (NEGATIVE) Urine Glucose (UA) Negative (NEGATIVE) Urine Ketones 1+ (NEGATIVE) Urine Blood Negative (NEGATIVE) Urine Nitrite Positive (NEGATIVE) Urine Bilirubin Negative (NEGATIVE) Urine Urobilinogen 1 MG/DL (0.0-1.0) Urine Leukocyte Esterase 1+ (NEGATIVE) Urine RBC 0 /HPF (0 - 0) Urine WBC 0-2 /HPF (0 - 0) Urine Squamous Epithelial Cells None /LPF (NONE/OCC) Urine Triple Phosphate Crystals Occasional /LPF (NONE) Urine Bacteria Many /HPF (NONE) Test 04/01/19 06:14 Prothrombin Time 21.1 SEC (9.30-11.50) Prothromb Time International Ratio 2.1 (0.9-1.1) Height (Feet): 6 Height (Inches): 0.00 Weight (Pounds): 356 Objective General: no apparent distress Head: normocephalic EENT: normal ENT inspection Respiratory: no respiratory distress Gastrointestinal: gt - active bleed ++ peg tube Genitourinary: normal inspection Neurologic: alert Skin: normal inspection, normal color Abdifatah Ramirez MD Apr 01, 2019 12:19
--- NOTE | 2019-04-01 15:09 | Cardiology Report ---
APPROVED REPORT EXAM: Two-dimensional and M-mode echocardiogram with Doppler and color Doppler. INDICATION Congestive Heart Failure M-Mode DIMENSIONS IVSd1.8 (0.7-1.1cm)Left Atrium (MM)4.2 (1.6-4.0cm) LVDd3.5 (3.5-5.6cm)Aortic Root3.3 (2.0-3.7cm) PWd1.3 (0.7-1.1cm)Aortic Cusp Exc.2.2 (1.5-2.0cm) LVDs2.2 (2.5-4.0cm) PWs1.3 cm habitus. Normal left ventricular chamber size, systolic function and wall motion to extent visualized. Left ventricular ejection fraction grossly estimated to be 55 %. Study quality precludes accurate assessment of regional wall motion. Mild left ventricular hypertrophy. Anterior Echo-free space, may be due to pericardial fat or effusion. All cardiac chamber sizes are within normal limits. Focal aortic valve sclerosis with adequate cusp excursion. Thickened mitral valve leaflets with normal excursion. Mitral annulus and aortic root calcification. Pulmonic valve not well visualized. Normal tricuspid valve structure. IVC not obtained due to G-tube. A color flow and spectral Doppler study was performed and revealed: No aortic regurgitation. Trace mitral regurgitation. Mitral diastolic velocities suggest reduced left ventricular relaxation c/w mild LV diastolic dysfunction (Grade I ). Trace tricuspid regurgitation. Tricuspid systolic velocities suggests peak right ventricular systolic pressure of 15 mmHg. No pulmonic regurgitation present.
[2019-04-01 16:00] VITALS: BP 133/77
[2019-04-01] MEDS ORDERED: Warfarin Sodium 4mg GT SCH (17:00)
--- NOTE | 2019-04-01 18:42 | Diagnostic Imaging Report ---
APPROVED REPORT CPT Code: 11352 Present Symptoms Comments: Screening BILATERAL: Imaging reveals a patent deep venous system bilaterally. There is no evidence of thrombus within the femoral, popliteal or tibial segments. The greater saphenous veins are also within normal limits. Doppler indicates normal spontaneous flow within these segments.
--- NOTE | 2019-04-01 19:38 | NUR ---
HAND-OFF: Report given to Tala Hsieh., Patient is stable. Plan of care endorsed.
--- NOTE | 2019-04-01 19:40 | NUR ---
NURSE NOTES: pt in bed, , pt alert but not verbal. feeding infusing at 60ml/hr. no residual. falling precaution in place: bed locked an lowest position. bedside rail up x2,will round pt hourly, to ensure pt safety and assess for any change in condition.
[2019-04-01 20:00] VITALS: BP 127/66
[2019-04-01] MEDS: Enalapril 5mg tab GT SCH (21:32)
--- NOTE | 2019-04-01 22:10 | General Progress Note ---
Assessment/Plan Problem List: (1) Feeding by G-tube ICD Codes: Z93.1 - Feeding by G-tube SNOMED: 624452935 (2) Bilateral lower extremity edema (3) Functional quadriplegia ICD Codes: R53.2 - Functional quadriplegia SNOMED: 721442076111056 (4) Dementia ICD Codes: F03.90 - Unspecified dementia without behavioral disturbance SNOMED: 05823247 (5) Seizure disorder ICD Codes: G40.909 - Seizure disorder SNOMED: 178121675 (6) Peripheral edema ICD Codes: R60.9 - Edema, unspecified SNOMED: 294049745 (7) Fluid overload ICD Codes: E87.70 - Fluid overload, unspecified SNOMED: 29487821 Qualifiers: Qualified Codes: E87.70 - Fluid overload, unspecified Status: progressing Assessment/Plan: edema improving dc in am moniter lyte abnormality Subjective ROS Limited/Unobtainable: Yes Allergies: Coded Allergies: MORPHINE (Unverified Allergy, Unknown, 03/31/18) Objective Last 24 Hour Vital Signs Date Time Temp Pulse Resp B/P (MAP) Pulse Ox O2 Delivery O2 Flow Rate FiO2 04/01/19 21:32 81 127/66 04/01/19 21:32 127/66 04/01/19 16:00 99.4 66 20 133/77 (95) 97 04/01/19 16:00 58 04/01/19 12:00 58 04/01/19 12:00 98.2 55 18 117/76 (90) 98 04/01/19 09:12 122/66 04/01/19 09:12 63 122/66 04/01/19 09:00 Room Air 04/01/19 08:00 61 04/01/19 08:00 98.2 63 20 122/66 (84) 96 04/01/19 04:00 97.6 70 18 130/71 (90) 96 04/01/19 04:00 61 04/01/19 00:00 98.2 60 17 126/72 (90) 96 04/01/19 00:00 60 Intake and Output 03/31/19 04/01/19 18:59 06:59 # Voids 1 2 # Bowel Movements 1 Laboratory Tests 04/01/19 06:14: Prothrombin Time 21.1H, Prothromb Time International Ratio 2.1H, Carcinoembryonic Antigen [Pending], CA 19-9 Antigen [Pending] Height (Feet): 6 Height (Inches): 0.00 Weight (Pounds): 356 Respiratory/Chest: lungs clear Abdomen: soft Aliza Faria MD Apr 01, 2019 22:10
[2019-04-02] VITALS: BP 137/74
--- NOTE | 2019-04-02 | NUR ---
NURSE NOTES: pt sleeping, no change in condition. will continue to monitor for any change in condition.
[2019-04-02] MEDS: NovoLOG Insulin Flexpen SUBQ SCH ×2 (00:07→05:46)
[2019-04-02 04:00] VITALS: BP 146/86
--- NOTE | 2019-04-02 04:00 | NUR ---
NURSE NOTES: no change in condition, will continue to monitor for any change in condition.
[2019-04-02 04:52] LABS: BASOPHILS % (AUTO) 0.9 % (0.0-2.0); EOSINOPHILS % (AUTO) 3.8 % (0.0-3.0); HEMATOCRIT 40.6 % (42.0-52.0); HEMOGLOBIN 13.2 G/DL (14.2-18.0); LYMPHOCYTES % (AUTO) 51.8 % (20.0-45.0); MEAN CORPUSCULAR VOLUME 99 FL (80-99); MONOCYTES % (AUTO) 10.7 % (1.0-10.0); NEUTROPHILS % (AUTO) 32.7 % (45.0-75.0); PLATELET COUNT 118 K/UL (150-450); RED BLOOD COUNT 4.12 M/UL (4.70-6.10); RED CELL DISTRIBUTION WIDTH 13.3 % (11.6-14.8); WHITE BLOOD COUNT 4.9 K/UL (4.8-10.8)
[2019-04-02 05:07] LABS: INR 2.3 (0.9-1.1)
--- NOTE | 2019-04-02 05:59 | NUR ---
NURSE NOTES: pt BS 145 no insulin given, pt NPO until 10 AM. will endorse to incoming nurse
--- NOTE | 2019-04-02 06:56 | NUR ---
NURSE NOTES: pt remains stable, no change in condition. off feeding at this time. falling precaution in place: bed locked and lowest position, bedside rail up x2, call light within reach. all needs met during my shift. will endorse plan of care to incoming nurse.
--- NOTE | 2019-04-02 07:00 | Consultation ---
DATE OF CONSULTATION: 03/31/2019 CARDIOLOGY CONSULTATION CONSULTING PHYSICIAN: Ha Laurent M.D. REFERRING PHYSICIAN: Aliza Faria M.D. REASON FOR CONSULTATION: Management of congestive heart failure. HISTORY OF PRESENT ILLNESS: The patient is a very unfortunate 78-year-old gentleman who was brought in by EMS from the [facility] for increased swelling of the upper and lower extremities for the past 2 days. The patient has history of congestive heart failure in the past and was noted by the staff at the [facility] that the patient has been retaining slowly. The patient is nonverbal at baseline and not providing any history at this time. PAST MEDICAL HISTORY: Hypertension, COPD, CVA/TIA, dementia, congestive heart failure, diabetes mellitus, dysphagia, status post G-tube placement, encephalitis, and seizure disorder. PAST SURGICAL HISTORY: Status post PEG placement. MEDICATIONS: Acetaminophen 650 G-tube q.4 h. p.r.n. pain and temperature above 100.5, Pro-Stat liquid 30 mL G-tube daily, Norvasc 2.5 mg p.o. daily, bisacodyl 10 mg daily p.r.n. constipation, calcium citrate 500 mg G-tube daily, clonidine 0.1 mg G-tube q.8 h. p.r.n. systolic blood pressure over 160, liquid 3875 mg G-tube twice daily, Colace 100 mg G-tube daily, Cardura 1 mg G-tube daily, Lasix 20 mg G-tube daily, lactulose 20 mg G-tube daily, milk of magnesia 30 mL G-tube daily p.r.n. constipation, metoprolol 25 mg G-tube daily, multivitamin one tablet G-tube daily, Fleet Enema 133 mL rectal q.48 h. p.r.n. constipation, Glucerna 1.5 Raj 60 mL G-tube hourly, potassium chloride 20 mEq G-tube daily, tamsulosin ____ G-tube at bedtime, valproic acid 500 mg G-tube b.i.d., ____ mg/15 mL liquid, 500 mg G-tube daily, warfarin 4 mg G-tube daily. ALLERGIES: Morphine. FAMILY HISTORY: No premature coronary artery disease in the first-degree relatives. SOCIAL HISTORY: No history of tobacco, alcohol, or illicit drug use is reported. REVIEW OF SYSTEMS: A 12-system review could not be done essentially because of the patient's nonverbal status. PHYSICAL EXAMINATION: VITAL SIGNS: Blood pressure is 131/78, pulse of 64, respiration rate of 14, temperature 98.1 degrees Fahrenheit, and O2 saturation 94% on room air. GENERAL: This is a very unfortunate 78-year-old gentleman, nonverbal. HEENT: Atraumatic and normocephalic. Anicteric. Pupils are equal, round, and reactive to light and accommodation. NECK: JVP is less than 5 cm. No carotid bruit. Carotid upstroke is 2+ bilaterally. HEART: Normal S1 and S2. Regular rate and rhythm. No murmurs, gallops, or rubs. PMI is at the fourth intercostal space in the midclavicular line. LUNGS: Clear to auscultation bilaterally. ABDOMEN: Soft, nontender, and nondistended. Positive G-tube in place. No hepatosplenomegaly. EXTREMITIES: There is bilateral lower extremity and upper extremity edema. DIAGNOSTIC DATA: Venous Doppler showed patent deep vein thrombosis bilaterally in both lower and upper extremity. Chest x-ray showed cardiomegaly, questionable left basilar atelectasis and pleural fluid and mild interstitial congestion. A 2D echocardiography revealed normal LV systolic function with LVEF of about 55%, mild LVH, grade 1 LV diastolic dysfunction, and right ventricular systolic pressure measured at 15 mmHg. LABORATORY FINDINGS: WBC is 5.9, hemoglobin of 13.8, hematocrit of 42.9, and platelet count is 111,000. Chemistry showed sodium 140, potassium 3.9, chloride 104, bicarbonate 31, BUN 22, creatinine 0.8, and glucose 127. Calcium is 8.7. Troponin I is 0.008. ProBNP was ___. INR is 1.5. ASSESSMENT AND PLAN: The patient is a very unfortunate 78-year-old male seen in cardiology consultation. 1. Most likely ischemic cardiomyopathy with evidence of ____ wall hypokinesia with ____ ejection fraction approximately 40%, possible ____ aneurysm. There is remarkable thinning of the anteroseptal wall on the left suggestive of prior myocardial infarction. The patient will benefit from therapy including beta-blockers, DILIP inhibitors, and aldosterone antagonist. 2. Chronic systolic congestive heart failure with the presence of grade 1 LV diastolic dysfunction. 3. History of CVA and dysphagia, status post PEG placement. 4. COPD. 5. Hypertension, currently well controlled. Continue current antihypertensive medications. 6. Prerenal azotemia with contraction alkalosis. I would like to thank, Dr. aFria, for allowing me to participate in the care of this patient. Ha Laurent M.D. DR: ZACH JOB#: [id number] CC:
--- NOTE | 2019-04-02 07:04 | NUR ---
HAND-OFF: Report given to Barbra George RN .
--- NOTE | 2019-04-02 07:28 | NUR ---
NURSE NOTES: Received report from Jori Edgar. Patient seen in bed. awake no s/s of distress and discomfort. all safety precautions in place. bed locked to lowest position, side rails x3 up. Call wilkinson within patients reach. will continue to monitor.
[2019-04-02 08:00] VITALS: BP 121/84
[2019-04-02] MEDS: Doxazosin 1mg Tab GT SCH (09:00)
[2019-04-02] MEDS: Aspirin Baby 81mg GT SCH (09:00)
[2019-04-02] MEDS: Enalapril 5mg tab GT SCH (09:00)
[2019-04-02] MEDS: Ascorbic Acid 500mg tab GT SCH (09:00)
[2019-04-02] MEDS: Lactulose 20gm/30ml UDC GT SCH (09:00)
[2019-04-02] MEDS ORDERED: Spironolactone 25mg tab GT SCH (09:00)
[2019-04-02] MEDS: Valproic Acid 250mg/5ml Liquid GT SCH (09:00)
[2019-04-02] MEDS: Docusate 100mg/10ml Liq GT SCH (09:00)
--- NOTE | 2019-04-02 09:15 | NUR ---
DISCHARGE PLANNED DISCHARGE ORDER NOTED PATIENT IS RETURNING TO [facility] ROOM 31[address] SKILLED T: [phone] FOR NURSE TO NURSE REPORT [facility] HAS BEEN ARRANG[facility] FOR [address] [employer]
--- NOTE | 2019-04-02 09:21 | Hematology/Onc Progress Note ---
Assessment/Plan Assessment/Plan Aassessment and Recs: # Coagulopathy with a history of being on coumadin --> recheck INR and monitor as needed, administer Vit K --> okay to continue coumadin --> Inr goal 2-3 --> PPI BID --> as per cards # Pancytopenia wbc 4-5, likely due to hepatitis C, came back +++ --> hiv in the past neg --> us of the abdomen does not show e/o cirrhosis or HSM --> plt trend 130k-->118k # Anemia of chronic disease, chronic, multifactorial, prior ferritin is <100 --> does not require anemia panel --> hg goal >7 --> no hemolysis noted # Limited mobility in bed --> stable # Feeding by G-tube --> as per gi # Edema bilaterally --> diuresis as needed, per cards # Functional quadriplegia Time of note does not always correspond to when patient seen. Appreciate consultation greatly! Subjective Cardiovascular: Denies: no symptoms, chest pain, edema, irregular heart rate, lightheadedness, palpitations, syncope, other Respiratory: Denies: no symptoms, cough, shortness of breath, SOB with excertion, SOB at rest, sputum, wheezing, other Gastrointestinal/Abdominal: Denies: no symptoms, abdomen distended, abdominal pain, black stools, tarry stools, blood in stool, constipated, diarrhea, difficulty swallowing, nausea, poor appetite, poor fluid intake, rectal bleeding , vomiting, other Genitourinary: Denies: no symptoms, burning, discharge, frequency, flank pain, hematuria, incontinence, pain, urgency, other Neurologic/Psychiatric: Denies: no symptoms, anxiety, depressed, emotional problems, headache, numbness, paresthesia, pre-existing deficit, seizure, tingling, tremors, weakness, other Endocrine: Denies: no symptoms, excessive sweating, flushing, intolerance to cold, intolerance to heat, increased hunger, increased thirst, increased urine, unexplained weight gain, unexplained weight loss, other Hematologic/Lymphatic: Denies: no symptoms, anemia, easy bleeding, easy bruising, adenopathy, other Allergies: Coded Allergies: MORPHINE (Unverified Allergy, Unknown, 03/31/18) Subjective 03/31: no events, hepatitis C, labs reviewed, still overloaded somewhat 04/01: no events, no f/c, no changes, labs ordered with cbc and ca19.9 04/02: no events, no bleeding, no night sweats noted Objective Objective Current Medications Medications (Trade) Dose Ordered Sig/Jamaal Route PRN Reason Start Time Stop Time Status Last Admin Dose Admin Acetaminophen (Tylenol) 650 mg Q4H PRN GT Mild Pain/Temp > 100.5 03/29/19 16:45 04/28/19 16:44 Ascorbic Acid (Vitamin C) 500 mg DAILY GT 03/30/19 09:00 04/29/19 08:59 04/02/19 09:00 Aspirin (ASA) 81 mg DAILY GT 03/30/19 09:00 04/29/19 08:59 04/02/19 09:00 Carvedilol (Coreg) 3.125 mg EVERY 12 HOURS GT 04/01/19 21:00 04/30/19 21:14 04/01/19 21:32 Clonidine HCl (Catapres Tab) 0.1 mg Q8H PRN GT SBP>160 03/29/19 16:45 04/28/19 16:44 Dextrose (Dextrose 50%) 25 ml Q30M PRN IV Hypoglycemia 03/29/19 17:15 04/28/19 17:14 Dextrose (Dextrose 50%) 50 ml Q30M PRN IV Hypoglycemia 03/29/19 17:15 04/28/19 17:14 Docusate Sodium (Colace) 100 mg DAILY GT 03/30/19 09:00 04/29/19 08:59 04/02/19 09:00 Doxazosin Mesylate (Cardura) 1 mg DAILY GT 03/30/19 09:00 04/29/19 08:59 04/02/19 09:00 Enalapril Maleate (Vasotec) 5 mg EVERY 12 HOURS GT 04/01/19 21:00 04/30/19 21:14 04/01/19 21:32 Furosemide (Lasix) 20 mg DAILY GT 03/30/19 09:00 04/29/19 08:59 04/02/19 09:00 Insulin Aspart (NovoLOG) Q6HR SUBQ 03/29/19 18:00 04/28/19 17:59 04/02/19 00:07 Lactulose (Cephulac) 20 gm DAILY GT 03/30/19 09:00 04/29/19 08:59 04/02/19 09:00 Magnesium Hydroxide (Mom) 30 ml DAILYPRN PRN GT Constipation 03/29/19 16:45 04/28/19 16:44 Multivitamins (Multivitamins) 1 tab DAILY GT 03/30/19 09:00 04/29/19 08:59 04/02/19 09:00 Potassium Chloride (K-Dur) 20 meq DAILY GT 03/30/19 09:00 04/29/19 08:59 04/02/19 09:01 Sodium Phosphate (Fleet's Sodium Phosl Enema) 133 ml DAILYPRN PRN RECTAL Constipation 03/29/19 16:45 04/28/19 16:44 Spironolactone (Aldactone) 25 mg DAILY GT 04/02/19 09:00 05/01/19 08:59 04/02/19 09:00 Valproic Acid (Depakene) 250 mg Q12HR GT 03/29/19 21:00 04/28/19 20:59 04/02/19 09:00 Warfarin Sodium (Coumadin per pharmacy) 1 ea DAILY PRN MISC PER RX PROTOCOL 03/29/19 17:00 04/28/19 16:59 Warfarin Sodium (Coumadin) 4 mg COUMADIN PO 04/02/19 17:00 04/02/19 18:00 Last 24 Hour Vital Signs Date Time Temp Pulse Resp B/P (MAP) Pulse Ox O2 Delivery O2 Flow Rate FiO2 04/02/19 09:00 59 121/84 04/02/19 09:00 121/84 04/02/19 08:00 97.3 59 20 121/84 (96) 98 04/02/19 04:00 97.9 57 20 146/86 (106) 99 04/02/19 04:00 55 04/02/19 00:00 56 04/02/19 00:00 98.2 66 18 137/74 (95) 96 04/01/19 21:32 81 127/66 04/01/19 21:32 127/66 04/01/19 21:00 Room Air 04/01/19 20:00 60 04/01/19 20:00 98.1 68 18 127/66 (86) 96 04/01/19 16:00 99.4 66 20 133/77 (95) 97 04/01/19 16:00 58 04/01/19 12:00 58 04/01/19 12:00 98.2 55 18 117/76 (90) 98 04/01/19 09:12 122/66 04/01/19 09:12 63 122/66 04/01/19 09:00 Room Air 04/01/19 08:00 61 04/01/19 08:00 98.2 63 20 122/66 (84) 96 04/01/19 04:00 97.6 70 18 130/71 (90) 96 04/01/19 04:00 61 04/01/19 00:00 98.2 60 17 126/72 (90) 96 04/01/19 00:00 60 03/31/19 22:04 157/89 03/31/19 22:03 71 157/89 03/31/19 21:00 Room Air 03/31/19 20:00 97.9 71 17 157/89 (111) 97 03/31/19 20:00 65 03/31/19 16:00 97.3 61 20 138/93 (108) 99 03/31/19 16:00 60 03/31/19 12:00 58 03/31/19 12:00 98.1 65 20 132/72 (92) 97 Intake and Output 04/01/19 04/02/19 19:00 07:00 Intake Total 600 ml Balance 600 ml Intake Tube Feeding 600 ml # Voids 2 Labs Test 03/30/19 13:50 03/31/19 05:54 04/01/19 06:14 04/02/19 04:00 Urine Color Yellow Urine Appearance Slightly cloudy Urine pH 8 (4.5-8.0) Urine Specific Turrell 1.010 (1.005-1.035) Urine Protein Negative (NEGATIVE) Urine Glucose (UA) Negative (NEGATIVE) Urine Ketones 1+ (NEGATIVE) Urine Blood Negative (NEGATIVE) Urine Nitrite Positive (NEGATIVE) Urine Bilirubin Negative (NEGATIVE) Urine Urobilinogen 1 MG/DL (0.0-1.0) Urine Leukocyte Esterase 1+ (NEGATIVE) Urine RBC 0 /HPF (0 - 0) Urine WBC 0-2 /HPF (0 - 0) Urine Squamous Epithelial Cells None /LPF (NONE/OCC) Urine Triple Phosphate Crystals Occasional /LPF (NONE) Urine Bacteria Many /HPF (NONE) Prothrombin Time 18.7 SEC (9.30-11.50) 21.1 SEC (9.30-11.50) 23.4 SEC (9.30-11.50) Prothromb Time International Ratio 1.8 (0.9-1.1) 2.1 (0.9-1.1) 2.3 (0.9-1.1) Carcinoembryonic Antigen 2.1 ng/mL (0.0-4.7) CA 19-9 Antigen 12 U/mL (0-35) White Blood Count 4.9 K/UL (4.8-10.8) Red Blood Count 4.12 M/UL (4.70-6.10) Hemoglobin 13.2 G/DL (14.2-18.0) Hematocrit 40.6 % (42.0-52.0) Mean Corpuscular Volume 99 FL (80-99) Mean Corpuscular Hemoglobin 32.0 PG (27.0-31.0) Mean Corpuscular Hemoglobin Concent 32.5 G/DL (32.0-36.0) Red Cell Distribution Width 13.3 % (11.6-14.8) Platelet Count 118 K/UL (150-450) Mean Platelet Volume 8.7 FL (6.5-10.1) Neutrophils (%) (Auto) 32.7 % (45.0-75.0) Lymphocytes (%) (Auto) 51.8 % (20.0-45.0) Monocytes (%) (Auto) 10.7 % (1.0-10.0) Eosinophils (%) (Auto) 3.8 % (0.0-3.0) Basophils (%) (Auto) 0.9 % (0.0-2.0) Height (Feet): 6 Height (Inches): 0.00 Weight (Pounds): 356 Objective General: no apparent distress Head: normocephalic EENT: normal ENT inspection Respiratory: no respiratory distress Gastrointestinal: gt - active bleed ++ peg tube Genitourinary: normal inspection Neurologic: alert Skin: normal inspection, normal color Abdifatah Ramirez MD Apr 02, 2019 09:21
--- NOTE | 2019-04-02 10:40 | NUR ---
NURSE NOTES: Patient for D/c today to SNF. Discharge initiated. Report given to nurse Jj Rocha. estimated bean picker at 1100. will follow
[2019-04-02 11:56] VITALS: BP 118/97
--- NOTE | 2019-04-02 12:05 | NUR ---
NURSE NOTES: Patient picked up by 2 EMT attendants @ 1204 in a stretcher. Patient stable and no s/s of distress. IV dc'd. heart monitor removed.
[2019-04-02] MEDS ORDERED: Warfarin Sodium 4mg PO SCH (17:00)
--- NOTE | 2019-04-02 20:33 | Cardiology Progress Note ---
Assessment/Plan Assessment/Plan 1. 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 The patient will benefit from guide-line directed medical therapy including beta-blockers, DILIP inhibitors , and aldosterone antagonist. 2. Chronic systolic congestive heart failure with the presence of grade I LV diastolic dysfunction. 3. History of CVA and dysphagia, status post PEG placement. 4. COPD. 5. Hypertension, currently well controlled. Continue current antihypertensive medications. Subjective Subjective Sinus rhythm at rate of 60. Objective Last 24 Hour Vital Signs Date Time Temp Pulse Resp B/P (MAP) Pulse Ox O2 Delivery O2 Flow Rate FiO2 04/02/19 11:56 98.1 60 20 118/97 (104) 97 04/02/19 09:00 Room Air 04/02/19 09:00 59 121/84 04/02/19 09:00 121/84 04/02/19 08:00 97.3 59 20 121/84 (96) 98 04/02/19 08:00 52 04/02/19 04:00 97.9 57 20 146/86 (106) 99 04/02/19 04:00 55 04/02/19 00:00 56 04/02/19 00:00 98.2 66 18 137/74 (95) 96 04/01/19 21:32 81 127/66 04/01/19 21:32 127/66 04/01/19 21:00 Room Air Intake and Output 04/01/19 04/02/19 18:59 06:59 Intake Total 600 ml Balance 600 ml Intake Tube Feeding 600 ml # Voids 2 2D Echo: EF 40%,Anteroseptal wall HK, aneurysm w/ wall thinning, RVSP 15, Mild LVH Laboratory Tests Test 04/02/19 04:00 White Blood Count 4.9 K/UL (4.8-10.8) Red Blood Count 4.12 M/UL (4.70-6.10) L Hemoglobin 13.2 G/DL (14.2-18.0) L Hematocrit 40.6 % (42.0-52.0) L Mean Corpuscular Volume 99 FL (80-99) Mean Corpuscular Hemoglobin 32.0 PG (27.0-31.0) H Mean Corpuscular Hemoglobin Concent 32.5 G/DL (32.0-36.0) Red Cell Distribution Width 13.3 % (11.6-14.8) Platelet Count 118 K/UL (150-450) L Mean Platelet Volume 8.7 FL (6.5-10.1) Neutrophils (%) (Auto) 32.7 % (45.0-75.0) L Lymphocytes (%) (Auto) 51.8 % (20.0-45.0) H Monocytes (%) (Auto) 10.7 % (1.0-10.0) H Eosinophils (%) (Auto) 3.8 % (0.0-3.0) H Basophils (%) (Auto) 0.9 % (0.0-2.0) Prothrombin Time 23.4 SEC (9.30-11.50) H Prothromb Time International Ratio 2.3 (0.9-1.1) H Objective HEENT: Atraumatic and normocephalic. Anicteric. Pupils are equal, round, and reactive to light and accommodation. NECK: JVP is less than 5 cm. No carotid bruit. Carotid upstroke is 2+ bilaterally. HEART: Normal S1 and S2. Regular rate and rhythm. No murmurs, gallops, or rubs. PMI is at the fourth intercostal space in the midclavicular line. LUNGS: Clear to auscultation bilaterally. ABDOMEN: Soft, nontender, and nondistended. Positive G-tube in place. No hepatosplenomegaly. EXTREMITIES: There is bilateral lower extremity and upper extremity edema. Ha Laurent MD Apr 02, 2019 20:33
--- NOTE | 2019-04-03 13:23 | Discharge Summary ---
Discharge Summary Discharge Summary _ DATE OF ADMISSION: 03/29/2019 DATE OF DISCHARGE: 04/02/2019 DISCHARGED BY: Dr. Aliza Tran CONSULTANTS: Dr. Ha Ramirez BRIEF HOSPITAL COURSE: Patient is a 78-year-old male, who [facility] due to increased swelling of the upper and lower extremities for the last few days. Patient has history of CHF, COPD, hypertension, CVA, and dementia. Patient was nonverbal at baseline. There was no reported fever or chills. No reported no shortness of breath. On evaluation at the ED, vital signs were stable. Blood work did not show any leukocytosis. Hemoglobin and hematocrit were stable. Electrolytes were normal. Troponin was negative. proBNP 215. EKG showed normal sinus rhythm with no acute ischemic changes. Doppler ultrasound was negative for DVT. Chest x-ray showed cardiomegaly and pulmonary congestion. He was given IV Lasix. He was then admitted for evaluation of worsening edema. Speech Therapist was consulted. Patient with history of CHF. 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 He was given carvedilol, Spironolactone and enalapril. Mental Health Nurse Practitioner consulted. INR was elevated to 2.3. She was given vitamin K injection. Patient had pancytopenia. Hepatitis screen was positive for hepatitis C. Previous HIV screen was negative. Abdominal ultrasound showed cholelithiasis, negative for dilated bile ducts. Nonvisualization of spleen and abdominal aorta. Urine culture showed growth of Klebsiella pneumonia and Morganella. Venous duplex scan of bilateral upper extremity was negative for DVT. Vital signs were stable. Blood work was stable. Patient was [facility] 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 DISCHARGE MEDICATIONS: Refer to Discharge Medication List. I have been assigned to complete a discharge summary on this account, I was not involved with the patient's management.--MADHAV Esparza Jacqueline Robles NP Apr 03, 2019 13:23
--- NOTE | 2019-04-06 20:55 | Cardiology Report ---
APPROVED REPORT EKG Measurement Heart [id number] Sinus rhythm with 1st degree AV block with occasional premature ventricular complexes Left axis deviation Low voltage QRS Inferior infarct, age undetermined Cannot rule out Anterior infarct, age undetermined Abnormal ECG
== END 2019-04-02 12:04 | DRG 291 ==
LOC: EDUNIT# 12:23 → EDBD 12:23 → EDBEDREQ 12:48 → EMR 12:55 → EDBEDREQ 15:05 → 2E 15:17
DX: I11.0 Hypertensive heart disease with heart failure (principal); R53.2 Functional quadriplegia; D61.818 Other pancytopenia; Z43.1 Encounter for attention to gastrostomy; I50.43 Acute on chronic combined systolic (congestive) and diastolic (congestive) heart failure; Z88.6 Allergy status to analgesic agent; Z79.01 Long term (current) use of anticoagulants; K21.9 Gastro-esophageal reflux disease without esophagitis; E78.5 Hyperlipidemia, unspecified; I69.391 Dysphagia following cerebral infarction; R13.10 Dysphagia, unspecified; D63.8 Anemia in other chronic diseases classified elsewhere; R79.1 Abnormal coagulation profile; E11.9 Type 2 diabetes mellitus without complications; G40.909 Epilepsy, unspecified, not intractable, without status epilepticus; I25.5 Ischemic cardiomyopathy; E87.70 Fluid overload, unspecified; I25.2 Old myocardial infarction
CPT/HCPCS: 36415; 71045; 76700; 80053; 81001; 82378; 82550; 82553; 82962; 83880; 84484; 85025; 85610; 85730; 86705; 86709; 86803; 87086; 87181; 87340; 93005; 93306; 93970; 96374; 99285; J1815; J8499